=== PATIENT | male | born 1945 | race Caucasian/White ===

== ENCOUNTER → 2022-02-12 | Outpatient (CLI) | payer OTHER, SELFPAY ==
--- NOTE | 2022-02-12 15:50 | RAD_ITS ---
INDICATION: SPONDYLOSIS LUMBAR REGION EXAMINATION/TECHNIQUE: X-RAY - AP, lateral and spot views of lumbar spine COMPARISON: None. FINDINGS: VERTEBRAE: Mild levoscoliotic curvature of lumbar spine with apex of curvature at level of L2-3. There is grade 1 anterolisthesis of L5 in relation to L4 and S1. No acute fracture identified. Mild chronic appearing loss of height L4 vertebral body. Multilevel endplate osteophytes. Multilevel degenerative facet arthropathy. DISCS: Mild degenerative disc space narrowing at L1 and L2. Moderate disc space narrowing at L5-S1. INCLUDED ABDOMEN: Included bowel gas pattern is non-obstructive. RAD/Lumbar Spine 2 or 3 Views IMPRESSION: Mild lumbar scoliosis with multilevel spondylosis as described above. There is grade 1 spondylolisthesis of L5 in relation to L4 and S1. Electronically Signed: Gabriel Sebastian MD at 4:33 EDT ,
== END | disposition home or self-care (01) ==
LOC: RAD 15:46
PROVIDERS: PCP Family Medicine; Referring Provider Anesthesiology Pain Medicine; Visit Provider Anesthesiology Pain Medicine
DX: M47.816 Spondylosis without myelopathy or radiculopathy, lumbar region (principal); M47.896 Other spondylosis, lumbar region
CPT/HCPCS: 72100

== ENCOUNTER → 2022-04-19 | Outpatient (CLI) | payer OTHER, SELFPAY ==
--- NOTE | 2022-04-19 15:45 | RAD_ITS ---
STUDY: X-RAY - PELVIS AND LEFT HIP REASON FOR EXAM: Male, 76 years old. L HIP PAIN TECHNIQUE: 3 views of the pelvis and hip. COMPARISON: None. FINDINGS: There is a non-specific bowel gas pattern. Normal visualized soft tissue structures. Normal bilateral iliac wings, sacroiliac joints and visualized sacrum. Normal bilateral superior and inferior pubic rami. Normal pubic symphysis. Normal bilateral ischial tuberosities. Normal visualized femoral head. Small acetabular spur. Narrowed hip joint. RAD/HIP, UNI W/ Pelvis 2-3 Views IMPRESSION: Degenerative osteoarthritic change. No acute fracture or other significant bony pathology Electronically Signed: Patrick Carmichael MD at 19:59 EST ,
== END | disposition home or self-care (01) ==
LOC: RAD 15:41
PROVIDERS: PCP Family Medicine; Referring Provider Anesthesiology Pain Medicine; Visit Provider Anesthesiology Pain Medicine
DX: M25.552 Pain in left hip (principal)
CPT/HCPCS: 73502

== ENCOUNTER → 2022-06-06 | Outpatient (CLI) | payer OTHER, SELFPAY ==
--- NOTE | 2022-06-06 15:20 | MRI_ITS ---
PROCEDURE: LUMBAR SPINE MRI WITHOUT CONTRAST COMPARISONS: None CLINICAL INDICATION: RADICULOPATHY, left hip pain, low back pain. History of prostate cancer with radiation TECHNIQUE: Noncontrast lumbosacral spine MRI study was performed multiple sequences in sagittal and axial planes. FINDINGS: Mild levoscoliosis centered on L2. Slight degenerative L1-L2 and L4-L5 retrolisthesis. Bilateral L5 pars defects with grade 1/2 L5-S1 anterolisthesis. Normal vertebral marrow signal. Normal partially visualized sacroiliac joints. The conus medullaris terminates at L1. No abnormal signal within the visualized cord. L1-L2: Disc height loss and type II endplate change. Mild right neural foraminal stenosis. No spinal canal stenosis. L2-L3: Disc bulge and type II endplate changes with Schmorl''s nodes. Mild right neural foraminal stenosis. Crowding of the traversing right L3 nerve root in the lateral recess. L3-L4: Disc bulge eccentric to the right and Schmorl''s nodes. Impingement upon the traversing right L4 nerve root in the right lateral recess. Mild right neural foraminal stenosis. L4-L5: Disc bulge. Mild left neural foraminal stenosis. L5-S1: Disc uncovering and bulge. Severe bilateral neural foraminal stenosis. Mild paraspinous muscle fatty infiltration. MRI/Spine Lumbar (Routine) IMPRESSION: 1. Severe bilateral L5-S1 neural foraminal stenosis. 2. Right-sided lateral recess and neural foraminal stenosis at most levels with impingement upon the traversing right L4 nerve root in the right lateral recess. Electronically Signed: Nickolas Jason MD at 20:47 EST ,
== END | disposition home or self-care (01) ==
PROVIDERS: PCP Family Medicine; Referring Provider Anesthesiology Pain Medicine; Visit Provider Anesthesiology Pain Medicine
DX: M54.16 Radiculopathy, lumbar region (principal); M48.061 Spinal stenosis, lumbar region without neurogenic claudication
CPT/HCPCS: 72148

== ENCOUNTER → 2022-08-21 | Outpatient (CLI) | payer OTHER, SELFPAY ==
--- NOTE | 2022-08-21 14:49 | CT_ITS ---
CT LEFT LOWER EXTREMITY WITH 3-D IMAGING CLINICAL INDICATION: Template for left total hip arthroplasty. COMPARISON: TECHNIQUE: Coronal, sagittal and axial images of both hips and both knees were obtained without contrast. Bone and soft tissue algorithm images were provided. RADIATION DOSAGE (If Supplied By Facility): CTDIvol = ( 13.99 ) mGy, DLP = ( 700.01 ) mGycm FINDINGS: Bones: Osteopenia with moderate arthrosis of both hips, left greater than right. Lower lumbosacral spondylosis. Mild arthrosis of both medial femorotibial compartments and mild arthrosis of both lateral femorotibial compartment Soft Tissues: The deep soft tissue structures are unremarkable. The superficial soft tissues are unremarkable without evidence of edema, hematoma, or foreign body. CT/Extremity Lower without Contra IMPRESSION: Osteopenia with osteoarthritic changes of the lumbosacral spine, hips and knees as described. No acute abnormality.. Electronically Signed: Nicola Valentin, at 9:19 EDT ,
== END | disposition home or self-care (01) ==
PROVIDERS: PCP Family Medicine; Referring Provider Orthopaedic Surgery; Visit Provider Orthopaedic Surgery
DX: M16.12 Unilateral primary osteoarthritis, left hip (principal)
CPT/HCPCS: 73700

== ENCOUNTER 2022-09-04 08:05 | Inpatient (IN) | payer MEDICARE, OTHER, SELFPAY ==
--- NOTE | 2022-08-07 11:03 | CASEMGMT ---
Received tc from Tameka at 's office who states pt will have total hip on 09/04 and the plan is for [facility]. Updated SW.
[2022-08-22 13:41] LABS: Absolute Lymphocyte Count 1.19 X10^3/uL (0.83-4.51); Absolute Neutrophil Count 4.2 X10^3/uL (2.0-7.7); Basophil# 0.04 X10^3/uL; Basophil% 0.6 % (0-1); Eosinophil# 0.32 X10^3/uL; Eosinophils% 5.2 % (0-5); Hematocrit 41.8 % (40-54); Hemoglobin 13.9 g/dL (13.0-16.5); Lymphocyte # 1.19 X10^3/ul (0.83-4.51); Lymphocyte % 19.2 % (19-41); Mean Corp Hgb Conc 33.3 g/dL (32-36); Mean Corpuscular Hgb 32.5 pg (27.0-32.0); Mean Corpuscular Volume 97.7 fL (80-94); Mean Platelet Vol. 9.2 fl (6.2-12.0); Monocyte% 6.5 % (0-10); NRBC Flagged by Analyzer 0 % (0-5); Neutrophil # 4.22 X10^3/uL (2.7-7.7); Neutrophil % 68.2 % (47-70); Platelet Count 160 K/mm3 (150-450); RBC Distribution Width CV 12.9 % (11.6-14.6); RBC Distribution Width SD 45.7 fl (35.1-43.9); Red Blood Count 4.28 M/mm3 (4.6-6.2); White Blood Count 6.2 K/mm3 (4.4-11.0)
[2022-08-22 13:51] LABS: International Normalized Ratio 1.8; Partial Thromboplast Time 41.4 Seconds (24.1-36.2)
[2022-08-22 13:58] LABS: Hemoglobin A1c 5.1 % (3.8-5.6)
[2022-08-22 14:20] LABS: Anion Gap 7 (5-15); BUN 18 mg/dL (7-18); BUN/Creat Ratio 11.8 RATIO (10-20); Calcium,Total 9.1 mg/dL (8.5-10.1); Chloride 112 mmol/L (98-107); Creatinine, Serum 1.52 mg/dL (0.70-1.30); EST Glomerular Filtration Rate 48 mL/min (>60); Est Glom Filt Rate - Afr Amer 57 mL/min (>60); Glucose 123 mg/dL (74-106); Potassium 3.8 mmol/L (3.5-5.1); Sodium Level 141 mmol/L (136-145)
[2022-08-22 14:26] LABS: Magnesium 2.2 mg/dL (1.6-2.6)
[2022-08-24 15:25] LABS: Fructosamine 217 umol/L (0-285)
[2022-09-04] VITALS (14 sets, daily range): BP systolic 114–145; BP diastolic 54–73; PULSE 58–80; RESP 13–18; TEMP 36.3–37.2; O2SAT 95–100; BMI 29.7; BMI 29.6
[2022-09-04] MEDS: Lactated Ringers 1,000 ML 999 ML IV (08:40)
[2022-09-04] MEDS: Acetaminophen 500 MG Tablet 1000 MG PO ×3 (09:08→22:09)
[2022-09-04] MEDS: Magnesium 1 GM over 15 mins IV (09:08)
[2022-09-04] MEDS: Gabapentin 600 MG Tablet PO (09:09)
[2022-09-04] MEDS: Celecoxib 200 MG Capsule 400 MG PO (09:09)
[2022-09-04] MEDS: Scopolamine 1mg/72hr Patch 1 PATCH TD (09:11)
[2022-09-04 09:40] LABS: Bedside Glucose 151 mg/dL (74-106)
[2022-09-04 09:45] LABS: INR Fingerstick 1.1; Prothrombin Time Fingerstick 12.2 SEC (11.7-14.9)
[2022-09-04] MEDS: Lactated Ringers 1,000 ML 100 ML IV (10:06)
--- NOTE | 2022-09-04 10:22 | PCM.HP.BLA ---
History and Physical Date of Admission: 09/04/22 [facility] [address] [place] [address] OFFICE VISIT Date of Service:? 07/13/22 MR#: [id number] Acct: [id number] Name:SEE BREWER Rep #: [id number] : 1945 ? ? Provider: Dr. Tony Magaña, DO Age/Sex:? 77/M ? ? Location: [facility] [place] Status: Signed Intake Vital Signs ? 07/13/2307:43 Height 5 ft 10 in Weight: 208 lb BMI 29.8 Intake Visit Reasons:?LEFT HIP Accompanied by: Is patient in pain?: Yes Pain scale (1-10): 5 Allergies acetaminophen [From Percocet] Allergy (Verified 07/11/22 13:47) Otherhydrocodone [From Vicodin] Allergy (Verified 07/11/22 13:47) Othermorphine Allergy (Verified 07/11/22 13:47) Otheroxycodone [From Percocet] Allergy (Verified 07/11/22 13:47) Other Medications amlodipine 5 mg tablet 5 mg PO DAILY 07/11/22 [History Confirmed 07/13/22] ascorbate calcium (vitamin C) 500 mg tablet 500 mg PO DAILY 07/11/22 [History Confirmed 07/13/22] cholecalciferol (vitamin D3) 10 mcg (400 unit) capsule 10 mcg PO DAILY 07/11/22 [History Confirmed 07/13/22] doxazosin 1 mg tablet (Cardura) 1 mg PO DAILY 07/11/22 [History Confirmed 07/13/22] omeprazole 10 mg capsule,delayed release 10 mg PO DAILY 07/11/22 [History Confirmed 07/13/22] tumeric 100 mg-juan 150 mg-olive 50 mg-oreg 150 mg-caprylate capsule cap PO 07/11/22 [History Confirmed 07/13/22] venlafaxine besylate 112.5 mg tablet,extended release 24 hr 225 mg PO DAILY 07/11/22 [History Confirmed 07/13/22] omega 3-mdc-cnu-fish oil 300 mg-1,000 mg capsule (Fish Oil) 1 cap PO DAILY 02/24/23 [History Confirmed 07/13/22] rivaroxaban 20 mg tablet (Xarelto) 20 mg PO 07/13/22 [History Confirmed 07/13/22] PFSH Medical History?(Updated 07/13/22 @ 09:02 by Sharri Vazquez) History of chemotherapy Hx of blood clots Hx of radiation therapy Surgical History?(Updated 07/13/22 @ 08:40 by Sharri Vazquez) Hx of prostatectomy HPI LEFT HIP Details: Parts of this documentation were recorded by a scribe, this documentation accurately reflects the service provided and the decisions made by me, Dr. Tony Magaña, DO 07/13/22 0802. SEE PARIS is a 77 year old M here today for? left hip pain. Referred by Dr. Melo. He states that he has been having this pain for about 1 year. Denies any injury. He states that his pain is in the left groin and left posterior hip. He states it feels like a grinding in his hip socket. He states that he has the pain with WB. Denies any pain in the hip will sitting/laying. Denies numbness, tingling or other associated symptoms. He does have some low back pain as well but this is not the worst of his pain. Denies any hx of surgery of the hip or the back. He states that he did have a lumbar injection with Dr. Bhandari which did not help at all with his pain. He did have a left hip injection in 04/2022 which was helpful for about 3 weeks. He has been on Xarelto for about 1 year. He had his prostate removed and then had radiation. Then he had 2 spots seen in the pelvis flesh and had additional radiation and chemo therapy about 8 months ago. He sees the oncologist johanne in 11/2022 for re-evalaution. Ortho Exam General General: Yes no acute distress Neurologic: Yes alert and Yes oriented x3 Psychologic: Yes reasonable and appropriate Right Hip Homans Sign: No Left Hip Skin/Wound: No Ecchymosis, No soft tissue swelling and No Erythema Hip: Absent eccymosis, soft tissue swelling, erythema or tender to palpate - HIP: intact sensation to light touch no motor deficits on exam 10 internal rotation with lateral hip pain 40 external rotation with groin pain 5/5 hip flexion strength without pain Head: Normocephalic Atraumatic Chest: symmetrical rise, non-labored breathing, no audible wheeze Abdomen: no guarding, non-rigid Supplemental Info 06/06/2022 MRI lumbar spine:1. Severe bilateral L5-S1 neuroforaminal stenosis.? 2 right-sided lateral recess stenosis with impingement on traversing L4 nerve root in the right lateral recess 06/06/2022 x-ray left hip: Moderate to advanced left hip DJD joint space narrowing subchondral cysts acetabulum 02/12/2022 x-ray lumbar spine:Mild lumbar scoliosis with multilevel spondylosis as described above.? There is grade 1 spondylolisthesis of L5 in relation to L4 and S1.? Coding Level of Care Code Off vis,est,level 3 Diagnoses Osteoarthritis of left hip? M16.12 Lumbar degenerative disc disease? M51.36 SI joint arthritis? M47.818 Assessment and Plan Assessment and Plan (1) Osteoarthritis of left hip: ?Status:?Acute (2) Lumbar degenerative disc disease: ?Status:?Acute (3) SI joint arthritis: ?Status:?Acute Plan reviewed X-rays of patient's lumbar spine and left hip. Personally reviewed x-rays. There is no obvious fracture, dislocation, or lucency noted. Patient educated that he does have DDD /spondylosis, b/l SI joint arthrosis and spondylolisthesis of the lumbar spine but this is likely not the cause of his groin pain. Educated that taking Xarelto with the fish oil and turmeric will increased the blood thinning. Patient educated that he does have moderate to advanced OA of the left hip and arthritis . Educated that the groin pain with hip rotation is from the arthritis of the hip. Educated that if he does have a hip replacement this will not help the back pain. Treatment options are do nothing or steroid injection or PT which he has had, injections which he has had temperoraly relief or SHANTI. He has already tried and failed injection and PT therefore he wishes to discuss SHANTI.?Risks, benefits and alternatives of surgery reviewed including but not limited to bleeding, infection, nerve, foot drop, artery and/or tissue damage, fracture, VTE, leg length discrepancy, dislocation, need for hip precautions, continued pain and expected post-operative course. The recovery is on average 2-3 months before better than pre op and continued improvement up to 2 yrears.?Patient educated that he will need to stop the Xarelto 3days prior to surgery and we will need clearance for this prior to surgery. we will also stop fish oil 3 weeks pre op.? Patient has a concern about pain medication as they have made him dizzy and altered mental status .? for this reason along with his age and medical comorbidities he should be an admission procedure with request for transitional care prior to returning home as his is also of advanced age and does not feel that she can care for him, he would need to complete therapy after surgery. Recommended he is admitted after the surgery and could potentially benefit from skilled care after surgery. We will find out when the last hip injection was exactly. He will need to wait 3 months after the injection to have surgery.? We will need medical clearance. Follow up in 2 weeks postop or sooner if pain, swelling, numbness or associated symptoms, or concerns develop.? All questions answered. Patient in agreement of plan. 07/13/22 0928 <Electronically signed by Tony Magaña DO> Date Tony Magaña DO Cosigner Signature: Date (if applicable) ? I have examined the patient and the H&P has been reviewed. There are no clinical changes since date of exam.
--- NOTE | 2022-09-04 10:45 | HIP_PTH ---
PATIENT: SEE PARIS LOC: MS3 U#:[id number] AGE/SX: 77/M ROOM: [facility] [place] RE09/04/[address]: Dr. Tony Magaña DO : 1945 BED: 1 DIS: 09/06/2022 SPEC #: [id number] RECD: 09/04/22 14:47 STATUS: [place] REGian #: [id number] DENISE: 09/04/22 10:[address]: Tony Magaña DEPT: SURGICAL PATHOLOGY RECD BY: Fatmata Flores ENTERED: 09/05/22 08:13 SP TYPE: TOTAL HIP OTHR DR: DO Dr. Renato Berkowitz MD Tissues: Hip, NOS Procedures: Decalcification bone/plaque Surgery Specimen Level IV HEADER OPERATION: ERAS, total hip replacement robotic arm assist PRE-OP DIAGNOSIS: Osteoarthritis of left hip TISSUE SUBMITTED: Bone and soft tissue left hip MICROSCOPIC DIAGNOSIS Left hip bone and soft tissue, total hip replacement/resection: Femoral head with degenerative osteoarthritic changes. ALEAH:quirino 09/07/2022 MICROSCOPIC DESCRIPTION Slides are reviewed. GROSS DESCRIPTION Received is one container labeled with the patient's name and designated bone and tissue hip, left. The specimen consists of a godfrey femoral head measuring 6.0 x 5.0 x 5.0 cm. The articular surface displays prominent osteophyte formation, eburnation and bone erosion. Also present in the specimen container are multiple irregular fragments of bone reamings and pink-yellow soft tissue measuring in aggregate 11.0 x 7.0 x 1.5 cm. Field Nurse Case Manager sections are submitted in two cassettes as follows: 1 - soft tissue and reamings, 2 - femoral head after decalcification. / AM:quirino 09/05/2022 TC:5 CPT: 58880, 75468
[2022-09-04] MEDS: Cefazolin 2 GM in 0.9% Normal Saline 100 ML IV (10:50)
[2022-09-04] MEDS: dexAMETHasone 10 MG/ML Vial IV (11:00)
[2022-09-04] MEDS: Lactated Ringers 1,000 ML 125 ML IV ×2 (13:16→17:37)
--- NOTE | 2022-09-04 13:23 | OP.PCM_ITS ---
Operative Report Date of Procedure: 09/04/22 Preoperative diagnosis: Left hip DJD Postoperative diagnosis: Same Procedure: CT-guided Makoplasty assisted left total hip arthroplasty Implants: [place] Accolade II stem size 5, 127 degree neck angle +5 neck length 54 mm Trident II acetabular shell with 40 mm cancellous screw 36 mm ceramic head, 10 degree Trident X3 polyethylene insert. Anesthesia: Spinal EBL: 175 cc Complications: None Condition: Stable to PACU Indication for procedure: This is a 77-year-old male who has had long-standing arthrosis of the hip who has failed conservative treatment and wished to undergo total hip arthroplasty. We did discuss operative versus nonoperative intervention including risks of bleeding, infection , nerve artery tissue damage, need for further surgery, fracture, leg length discrepancy dislocation blood clot and need for postoperative physical therapy and postoperative expectations. An informed consent was signed. Procedure: Patient was met in the preoperative holding area once again the operative extremity was identified by both patient and physician and was marked. Patient was met by anesthesia . Anesthesia was started. patient was then positioned in the lateral decubitus position on a well-padded pegboard with an axillary roll. All bony prominences were checked and padded. The patient was prepped and draped in the usual sterile fashion. A timeout was called to ensure the proper patient procedure and extremity were being contemplated. Anatomic landmarks were palpated and marked for a standard posterior lateral approach. Prior to this the ASIS was palpated and 3 fingerbreadths proximal to this 3 pins were placed at a 45 degree angle into the iliac crest with good purchase, stab incisions were made with a 15 blade into the skin prior to placement. The Makoplasty array was then secured. A 10 blade scalpel was used to make a posterior incision through the skin and subcutaneous tissue. retractors were used and electrocautery was used to maintain meticulous hemostasis and dissect full-thickness flaps until the gluteal fascia was reached. The gluteal fascia was incised in line with the gluteal fibers. The bursal tissue was then freed from the underside and a Charnley retractor was placed. The femoral trochanteric checkpoint was placed and leg length was assessed using the trochanteric checkpoint and an EKG lead that was placed on the knee prior to prepping the leg .the fat pad was then elevated off of the external rotators with electrocautery and the external rotators were dissected off of the greater trochanter including the piriformis and were tagged with #1 Ethibond for later repair. The joint capsule opened with posterior trapdoor technique. The hip was surgically dislocated. The measurement on the preoperative CT from the top of the lesser trochanter to the femoral neck cut was marked Hohmann was placed around the lesser trochanter. A neck cutting guide was used to denys the neck with a Bovie and an oscillating saw was used complete the femoral neck cut. The femoral head was then removed and sized. We then turned our attention to the acetabulum. A Bovie was used to make a perforation in the anterior joint capsule and a Ortega retractor was placed this was repeated in the 6 o'clock position and a wide remy was placed there. With a long handled knife the labral and pulvinar tissue were removed. We then registered the acetabulum with the pointing array and confirmed our landmarks. Once the socket was thoroughly prepared and labral tissue and pulvinar was removed we single reamed with the robotic arm. We then used the robotic arm to position the acetabular implant and impacted it into place under robotic guidance. We then proceeded to place a posterior superior screw by drilling first measuring and inserting the screw. We then inserted a trial liner. And turned our attention back to the femur at this point a femoral elevator was used. As well as a pointed wide Hohmann around the lesser trochanter and a Hohmann to help retract the gluteus medius. A box chisel was used to remove excess lateral neck followed by a canal finder and a lateralizing reamer. This was followed by sequential broaches. Attention was made of the version within the canal based on preoperative templating. Once the final broach was seated we then trialed reduced the hip it was determined that a 127 degree neck angle with a 7.5 neck length was the appropriate size. We then checked stability with shuck testing as well as flexion and internal rotation. then proceeded with hip extension and checked leg lengths at the knees and heels as well as with the trochanteric checkpoint and knee EKG lead. At this point trials were removed. A liner was inserted to the cup. The femoral stem was inserted. We re-trialed and then proceeded to impact the femoral head onto the Ad taper. We then surgically reduce the hip check stability again and leg lengths and were satisfied. Betadine rinse was allowed to sit for 5 minutes while everyone changed their gloves. Thorough irrigation was performed. Followed by closure of the external rotators with #2 FiberWire followed by closure of gluteal fascia with #1 Ethibond. 0 Vicryl fat stitches and 2-0 Vicryl subcutaneous stitches and adrian in the skin. Adrian were placed in the skin pin sites over the iliac crest and dressed with a Mepilex dressing. The main incision was dressed with a Mepilex ag dressing and an abduction pillow was placed. Patient tolerated the procedure well there was no intraoperative complications all counts were correct and the patient was brought back to the PACU in stable condition
--- NOTE | 2022-09-04 13:34 | RAD_ITS ---
STUDY: X-RAY - PELVIS AND LEFT HIP REASON FOR EXAM: Male, 77 years old. Postoperative evaluation after left total hip arthroplasty. TECHNIQUE: 3 views of the pelvis and hip. COMPARISON: April 2022. FINDINGS: Left total hip arthroplasty in anatomic alignment with expected post-operative findings and no complications noted. RAD/Hip Min 2 Views (Portable) IMPRESSION: Placement of total hip arthroplasty in anatomic alignment without complications. Electronically Signed: Nicola Valentin, at 13:57 EDT ,
[2022-09-04] MEDS: Cefazolin 1 GM/50 ML BAG IV ×2 (14:07→22:08)
[2022-09-04] MEDS: Senna/Docusate Sodium 1 Tablet 2 TABLET PO (22:09)
--- NOTE | 2022-09-04 23:39 | PN.HOSP_ITS ---
Reason for Visit Reason for Visit: Diagnoses Encounter for other preprocedural examination (09/04/22) Subjective Subjective Unfortunately upon attempted evaluation patient sleeping, discussed with nursing staff and will defer discussions with patient as the note has been clinically stable with no acute complaints or concerns. Objective Data Objective Data Examination deferred as patient sleeping, no acute concerns per nursing staff or patient complaints that acutely need evaluated. Vital Signs: Vital Signs Temp Pulse Resp BP Pulse Ox O2 Del Method O2 Flow Rate 98.5 F 76 16 139/73 H 95 Room Air 4 09/04/22 22:06 09/04/22 22:06 09/04/22 22:06 09/04/22 22:06 09/04/22 22:06 09/04/22 22:06 09/04/22 14:15 Oxygen Flow Rate (L/min) 4 Oxygen Delivery Method Room Air Weight: 206 lb 12.697 oz Body Mass Index (BMI) 29.6 Intake & Output: Intake and Output for Last 24 Hours 09/02/22 09/03/22 09/04/22 23:59 23:59 23:59 Intake Total 3432 / 3432 Output Total 450 / 450 Balance 2982 / 2982 Lab / Micro Data Result Diagrams: 08/22/22 13:18 08/22/22 13:18 Labs: Laboratory Results - last 24 hr 09/04/22 08:39: POC Glucose 151 H 09/04/22 09:39: POC PT 12.2, INR 1.1 Micro: Microbiology 08/22/22 13:18 Nasal Secretion Nasal Screen MRSA/MSSA - Final Radiography Diagnostic Testing: Radiology Impression Hip X-Ray 09/04/22 13:34 IMPRESSION: Placement of total hip arthroplasty in anatomic alignment without complications. Electronically Signed: Nicola Valentin, at 13:57 EDT , Assessment & Plan Assessment/Plan (1) Osteoarthritis of hip: PLAN: Plan The patient is a 77 y/o M w/ PMHx: GERD, Hx VTE, Hx Prostate CA s/p prostatectomy/radiation/chemotherapy, OA, GERD who presents to the [facility] on 09/04/22 with history of severe L hip DJD admitted per Dr. Magaña for CT-guided Makoplasty assisted left total hip arthroplasty. #1. Severe Osteoarthritis, left hip: Failed conservative therapies and treatments, admitted per Dr. Magaña for planned 09/04/22 CT-guided Makoplasty assisted left total hip arthroplasty, post-operative pain management, bowel regimen, DVT Prophylaxis, PT/OT/CM per Orthopedic surgery discretion. #2. History of VTE: Patient with history DVT, PE, resume patient home Xarelto regimen once cleared by surgery given recent OR. #3. Hypertension: Continue home regimen including doxazosin, amlodipine, PRN hydralazine. #4. History of prostate cancer w/ BPH: Status post prostatectomy/radiation/chemotherapy all documented in the chart, unclear if in remission, will continue doxazosin and megestrol home regimen, encourage continued follow-up with oncology/urology as previously arranged. #5. GERD: Continue patient home omeprazole regimen. #6. DVT prophylaxis: As noted resume patient home Xarelto regimen once cleared by orthopedic surgery given recent OR. Unfortunately evaluation delayed until near midnight, patient sleeping, comfortable appearing thus discussions and examination deferred, non-billable note.
[2022-09-05] MEDS: Lactated Ringers 1,000 ML 15 ML IV (01:37)
[2022-09-05 02:12] VITALS: BP 135/65; PULSE 68; RESP 16; TEMP 37; O2SAT 98
[2022-09-05] MEDS: oxyCODONE 5 MG Tablet PO ×4 (02:17→22:42)
[2022-09-05] MEDS: Cefazolin 1 GM/50 ML BAG IV (05:50)
[2022-09-05] MEDS: Acetaminophen 500 MG Tablet 1000 MG PO ×3 (05:50→22:42)
[2022-09-05 06:40] LABS: Hemoglobin 11.7 g/dL (13.0-16.5); Mean Corp Hgb Conc 33.4 g/dL (32-36); Mean Corpuscular Hgb 32.4 pg (27.0-32.0); Mean Platelet Vol. 9.2 fl (6.2-12.0); Platelet Count 132 K/mm3 (150-450); RBC Distribution Width CV 12.7 % (11.6-14.6); RBC Distribution Width SD 45.1 fl (35.1-43.9); Red Blood Count 3.61 M/mm3 (4.6-6.2); White Blood Count 11.8 K/mm3 (4.4-11.0)
--- NOTE | 2022-09-05 07:50 | PN.HOSP_ITS ---
Reason for Visit Reason for Visit: Diagnoses Osteoarthritis of hip, unspecified (09/04/22) Encounter for other preprocedural examination (09/04/22) Follow-up perioperative left hip total arthroplasty. Subjective Subjective Patient has mild indigestion. Last BM, 1 day before yesterday. Voiding urine spontaneously. No fever. Objective Data Objective Data Vital Signs: Vital Signs Temp Pulse Resp BP Pulse Ox O2 Del Method O2 Flow Rate 98.6 F 68 16 135/65 H 98 Room Air 4 09/05/22 02:12 09/05/22 02:12 09/05/22 02:12 09/05/22 02:12 09/05/22 02:12 09/05/22 02:12 09/04/22 14:15 Oxygen Flow Rate (L/min) 4 Oxygen Delivery Method Room Air Weight: 206 lb 12.697 oz Body Mass Index (BMI) 29.6 Intake & Output: Intake and Output for Last 24 Hours 09/03/22 09/04/22 09/05/22 23:59 23:59 23:59 Intake Total 3432 / 3432 1050 / 1050 Output Total 450 / 750 1000 / 1000 Balance 2982 / 2682 50 / 50 Lab / Micro Data Result Diagrams: 09/05/22 06:20 09/05/22 06:20 Labs: Laboratory Results - last 24 hr 09/04/22 08:39: POC Glucose 151 H 09/04/22 09:39: POC PT 12.2, INR 1.1 09/05/22 06:20: WBC 11.8 H, RBC 3.61 L, Hgb 11.7 L, Hct 35.0 L, MCV 97.0 H, MCH 32.4 H, MCHC 33.4, RDW Std Deviation 45.1 H, RDW Coeff of Angelica 12.7, Plt Count 132 L, MPV 9.2 Micro: Microbiology 08/22/22 13:18 Nasal Secretion Nasal Screen MRSA/MSSA - Final Radiography Diagnostic Testing: Radiology Impression Hip X-Ray 09/04/22 13:34 IMPRESSION: Placement of total hip arthroplasty in anatomic alignment without complications. Electronically Signed: Nicola Valentin, at 13:57 EDT , Physical Exam Narrative Seen and examined. Patient denies history of chronic heart disease or lung disease. No previous stroke. Does not have chest pain or shortness of breath. Mild pain over left hip operative region. Patient had PT and OT in the morning. Physical exam General: Alert, Oriented x3, Cooperative HEENT: Atraumatic, PERRLA, EOMI, Normocephalic Oral: Oral mucosa moist. No Gingival or Mucosal Lesions/ Ulcerations Neck: Supple, No JVD, Negative Carotid Bruits Lungs: Air entry diminished in bilateral lung bases. No crepitation/rhonchi Cardiovascular: Regular rate, Regular Rhythm, Normal S1, Normal S2, No murmurs Abdomen: Bowel Sounds Present, Soft, Non Tender, Non-Distended : Voiding urine spontaneously. No dysuria. No renal angle tenderness. No suprapubic tenderness. Extremities: No edema, Capillary Refill Less than 3 Seconds Skin: Left hip surgical dressing is dry. No hematoma or bruise or bleeding. Mild deep tenderness. Musculoskeletal: No Tenderness to Palpation of Joints or Extremities Neurological: Cranial nerves II-XII grossly intact, DTR 2+/4 and Symmetrical, Neuro grossly intact Psych/Mental Status: Normal Affect, Appropriate. Assessment & Plan Assessment/Plan (1) Osteoarthritis of hip: PLAN: Plan The patient is a 77 y/o M w/ PMHx: GERD, Hx VTE, Hx Prostate CA s/p prostatec anthony/radiation/chemotherapy, OA, GERD who presents to the [facility] on 09/04/22 with history of severe L hip DJD admitted per Dr. Magaña for CT-guided Makoplasty assisted left total hip arthroplasty. #1. Perioperative management of severe Osteoarthritis, left hip status post CT- guided MAKOplasty assisted left total hip arthroplasty: Patient was admitted for perioperative care after elective surgery. Pain control. Patient spontaneously voided urine. Had not bowel movement for 1 day. On stool softener. MiraLAX added. Mild indigestion on Mylanta. PT OT evaluation and management. Xarelto for DVT prophylaxis. Patient had dizziness/nausea or other side effects of opioids medication during previous surgical procedure. #2. History of VTE: Patient with history DVT, PE, Xarelto resumed as mentioned above. #3. Hypertension: BP is in normal range 122/69. Continue home regimen including doxazosin, amlodipine, PRN hydralazine. #4. History of prostate cancer with BPH: Status post prostat ectomy/radiation/chemotherapy. Continue doxazosin and megestrol. Patient voiding urine spontaneously. No acute complaint of dysuria or new lower urinary tract symptoms. Follow-up with urology and oncology as scheduled. #5. GERD: Continue patient home omeprazole regimen. #6. DVT prophylaxis: As noted resume patient home Xarelto regimen once cleared by orthopedic surgery given recent OR. Patient prefers going to SNF. The patient is medically stable for discharge to home. Charges/Coding Visit Charges Inpatient E&M: 11878 Subs Hosp L2
[2022-09-05 07:54] LABS: Anion Gap 4 (5-15); BUN 17 mg/dL (7-18); BUN/Creat Ratio 14.4 RATIO (10-20); Calcium,Total 8.6 mg/dL (8.5-10.1); Chloride 112 mmol/L (98-107); Creatinine, Serum 1.18 mg/dL (0.70-1.30); EST Glomerular Filtration Rate 64 mL/min (>60); Est Glom Filt Rate - Afr Amer 77 mL/min (>60); Estimated Creatinine Clearance 54.13 ml/min; Glucose 159 mg/dL (74-106); Potassium 4.3 mmol/L (3.5-5.1); Sodium Level 137 mmol/L (136-145)
[2022-09-05 08:15] VITALS: BP 122/69; PULSE 64; RESP 16; TEMP 36.6; O2SAT 94
[2022-09-05] MEDS: Pantoprazole Sodium 20 MG Tablet PO (08:24)
[2022-09-05] MEDS: Doxazosin 1 MG Tablet PO (08:24)
[2022-09-05] MEDS: amLODIPine 5 MG Tablet PO (08:24)
[2022-09-05] MEDS: Senna/Docusate Sodium 1 Tablet 2 TABLET PO ×2 (08:25→22:42)
[2022-09-05 09:23] VITALS: O2SAT 94
--- NOTE | 2022-09-05 09:30 | CASEMGMT ---
YESSENIA ZABALA Assessment: Face to Face with pt for initial transition planning/care coordination assessment. YESSENIA ZABALA introduced self and role at [facility], pt voices understanding and consents to assessment. Pt is A/O x4 and answers all questions appropriately at this time. Pt sitting up in chair in no distress. Care providers, pharmacy, and demographics verified/updated. Admitting Dx: Lt total hip with YANNI PCP:Shirin Specialists:jose manuel Magaña Pharmacy: [facility] Insurance: [facility], [facility] Prescription Benefit: yes LNOK: Monse Colon, Living Arrangements: Pt lives with in a single story home with 3 steps to enter with a rail. Pt reports he was I in ADL's prior to surgery. Pt denies any concerns at home. Transportation: Pt drives self and denies concerns with transportation. Pt is able to transport him post surgery. DME/HHC/SNF: Pt has a high toilet seat, pewter finisher, walk in shower and a FWW. Pt denies hx of HHC or SNF stays. Pt states he would like to go to [facility] TCU. He states that his is unable to assist with his care. discussed the same with YESSENIA ZABALA. Updated SW. Pt states no further concerns/needs. CM to follow. Advised pt to ask CM if any further question/concerns/needs arise, voices understanding. Pt Goal: [facility] TCU Plan: [facility]
--- NOTE | 2022-09-05 10:43 | CASEMGMT ---
Social Work? SW in to meet with pt following update from /CHAYITO that pt will need placement at nursing facility. SW introduced self and role at the hospital. Pt agreeable to discussing discharge planning. Pt declined a list of SNF providers including quality and resource use data consistent with the patient?s preferred geographic region, medical needs, and insurance network from the [employer] Guide. Pt stated [facility] is preference. COLTON sent referral to Deja at TCU. Deja able to accept for 09/06/22. SW notified pt of acceptance and bed opening tomorrow. Pt voiced understanding, stated will update later when arrives. MD Quintana and MD Hilario updated on d/c plan. PLAN: SNF? [facility]?
[2022-09-05] MEDS: Rivaroxaban 20 MG Tablet PO (11:20)
[2022-09-05] MEDS: Mag Hydrox/Al Hydrox/Simeth 30 ML UDC PO (12:06)
--- NOTE | 2022-09-05 12:24 | DCINST_ITS ---
Discharge Instructions Diet Discharge Diet: No restrictions Dressing / Incision Call your doctor if you observe: Shortness of breath and Chest pain Additional Dressing/Incision Instructions:: Do not shower 72hrs. Begin daily showering warm water antibacterial soap postop day #3( 72hrs Post-operatively) and then daily. Leave the dressing on for 72 hours postoperatively then may remove prior to first shower and change dressing daily after this until no drainage for 2 consecutive days then may leave open to air. Follow hip precautions that were reviewed in hospital. Wear compression stockings, may remove at night. Start physical therapy as directed in hospital. Follow prescriptions instructions do not take any other pain medication or differ dosing without consulting your physician. Do not take oral NSAIDs until blood thinner has been completed , then may begin the day after completion if needed . Call Dr. Magaña's office with any concerns. Follow Up Care Please Follow Up With: Tony Magaña DO When: 2 weeks Test Results: Test results from this visit will be discussed in further detail at your follow- up appointment, if applicable. Discharge Plan Admission Admit Date/Time: 09/04/22 08:05 Primary Reason for Your Visit: Left total hip arthroplasty Attending Provider: Tony Magaña Primary Care Provider: Jermaine Carpio Consulting Providers: Renato Quintana Discharge Orders/Prescriptions Prescriptions: New oxycodone 5 mg tablet 5 - 10 mg PO Q4H PRN (Reason: pain) 7 Days Qty: 50 0RF Rx Instructions: pain scale 4-6: 5mg pain scale 7-10: 10mg acetaminophen 500 mg tablet 1,000 mg PO Q6H PRN (Reason: pain) Qty: 60 0RF Continued amlodipine 5 mg tablet 5 mg PO DAILY doxazosin [Cardura] 1 mg tablet 1 mg PO DAILY omeprazole 10 mg capsule,delayed release(DR/EC) 10 mg PO DAILY cholecalciferol (vitamin D3) 10 mcg (400 unit) capsule 10 mcg PO DAILY megestrol 20 mg tablet 20 mg PO BID Label Comments: TAKE 1 TABLET BY MOUTH TWICE A DAY Xarelto 20 mg tablet 20 mg PO DAILY Label Comments: TAKE 1 TABLET BY MOUTH EVERY DAY WITH DINNER Other Ambulatory Orders: Occupational Therapy Eval (Routine) Location: None Selected Ordered By: Kari PAN Physical Therapy Evaluation (Routine) Location: None Selected Ordered By: Kari PAN Referrals / Follow Up: Jermaine Carpio DO [Primary Care Provider] - Disposition Disposition (needs filled in before D/C Order can be placed): [facility]
--- NOTE | 2022-09-05 12:29 | PCM.TXEXTCAR ---
Documented by User: Dr. Tony Magaña DO 09/05/22 12:31 Diet Diet Order/Speech Therapy: 09/04/22 17:33 Diet: Regular - General Is pt able to select menu?: Yes Wound(s) L HIP: Wound Type: Surgical Incision L LATERAL HIP: Wound Type: Surgical Incision Therapies Weight Bearing: Weight bearing as tolerated Allergies/Procedures Done in Hospital Allergies acetaminophen [From Percocet] Allergy (Verified 09/04/22 09:05) Other Dizziness hydrocodone [From Vicodin] Allergy (Verified 09/04/22 09:05) Other dizziness morphine Allergy (Verified 09/04/22 09:05) Other Dizziness oxycodone [From Percocet] Allergy (Verified 09/04/22 09:05) Other Dizziness Follow Up Care Please Follow Up With: Tony Magaña DO Discharge Plan Admission Admit Date/Time: 09/04/22 08:05 Primary Reason for Your Visit: Left total hip arthroplasty Attending Provider: Tony Magaña Primary Care Provider: Jermaine Carpio Consulting Providers: Renato Quintana Discharge Orders/Prescriptions Prescriptions: New oxycodone 5 mg tablet 5 - 10 mg PO Q4H PRN (Reason: pain) 7 Days Qty: 50 0RF acetaminophen 500 mg tablet 1,000 mg PO Q6H PRN (Reason: pain) Qty: 60 0RF Continued amlodipine 5 mg tablet 5 mg PO DAILY doxazosin [Cardura] 1 mg tablet 1 mg PO DAILY omeprazole 10 mg capsule,delayed release(DR/EC) 10 mg PO DAILY cholecalciferol (vitamin D3) 10 mcg (400 unit) capsule 10 mcg PO DAILY megestrol 20 mg tablet 20 mg PO BID Label Comments: TAKE 1 TABLET BY MOUTH TWICE A DAY Xarelto 20 mg tablet 20 mg PO DAILY Label Comments: TAKE 1 TABLET BY MOUTH EVERY DAY WITH DINNER Other Ambulatory Orders: Occupational Therapy Eval (Routine) Location: None Selected Ordered By: Kari PAN Physical Therapy Evaluation (Routine) Location: None Selected Ordered By: Kari PAN Referrals / Follow Up: Jermaine Carpio DO [Primary Care Provider] - Disposition Disposition (needs filled in before D/C Order can be placed): [facility] Documented by User: MAXIM Rodriguez 09/06/22 15:58 Allergies/Procedures Done in Hospital Allergies acetaminophen [From Percocet] Allergy (Verified 09/04/22 09:05) Other Dizziness hydrocodone [From Vicodin] Allergy (Verified 09/04/22 09:05) Other dizziness morphine Allergy (Verified 09/04/22 09:05) Other Dizziness oxycodone [From Percocet] Allergy (Verified 09/04/22 09:05) Other Dizziness Type of Care/Length of Stay Estimated LOS: Convalescent Care Less Than 30 days Type of Care Needed: Skilled Rehab Potential: Good Prognosis: Good Additional Orders/Day of Discharge Day of Discharge: 09/06/22 Discharge Plan Admission Admit Date/Time: 09/04/22 08:05 Primary Reason for Your Visit: Left total hip arthroplasty Attending Provider: Tony Magaña Primary Care Provider: Jermaine Carpio Consulting Providers: Renato Quintana Discharge Orders/Prescriptions Prescriptions: New oxycodone 5 mg tablet 5 - 10 mg PO Q4H PRN (Reason: pain) 7 Days Qty: 50 0RF acetaminophen 500 mg tablet 1,000 mg PO Q6H PRN (Reason: pain) Qty: 60 0RF Continued amlodipine 5 mg tablet 5 mg PO DAILY doxazosin [Cardura] 1 mg tablet 1 mg PO DAILY omeprazole 10 mg capsule,delayed release(DR/EC) 10 mg PO DAILY cholecalciferol (vitamin D3) 10 mcg (400 unit) capsule 10 mcg PO DAILY megestrol 20 mg tablet 20 mg PO BID Label Comments: TAKE 1 TABLET BY MOUTH TWICE A DAY Xarelto 20 mg tablet 20 mg PO DAILY Label Comments: TAKE 1 TABLET BY MOUTH EVERY DAY WITH DINNER Other Ambulatory Orders: Occupational Therapy Eval (Routine) Location: None Selected Ordered By: Kari PAN Physical Therapy Evaluation (Routine) Location: None Selected Ordered By: Kari PAN Referrals / Follow Up: Jermaine Carpio DO [Primary Care Provider] - Disposition Disposition (needs filled in before D/C Order can be placed): [facility]
--- NOTE | 2022-09-05 12:31 | PCM.PN.ORT ---
Subjective Subjective Seen and examined doing well pain controlled denies fevers chills nausea vomiting shortness of breath or chest pain Objective Data Objective Data Vital Signs: Vital Signs Temp Pulse Resp BP Pulse Ox O2 Del Method O2 Flow Rate 97.9 F 64 16 122/69 H 94 Room Air 4 09/05/22 08:15 09/05/22 08:15 09/05/22 08:15 09/05/22 08:15 09/05/22 09:23 09/05/22 08:15 09/04/22 14:15 Oxygen Flow Rate (L/min) 4 Oxygen Delivery Method Room Air Weight: 206 lb 12.697 oz Body Mass Index (BMI) 29.6 Intake & Output: Intake and Output for Last 24 Hours 09/03/22 09/04/22 09/05/22 23:59 23:59 23:59 Intake Total 3432 / 3432 1951.25 / 1951.25 Output Total 450 / 750 1150 / 1150 Balance 2982 / 2682 801.25 / 801.25 Lab / Micro Data Result Diagrams: 09/05/22 06:20 09/05/22 06:20 Labs: Laboratory Results - last 24 hr 09/05/22 06:20: WBC 11.8 H, RBC 3.61 L, Hgb 11.7 L, Hct 35.0 L, MCV 97.0 H, MCH 32.4 H, MCHC 33.4, RDW Std Deviation 45.1 H, RDW Coeff of Angelica 12.7, Plt Count 132 L, MPV 9.2 09/05/22 06:20: Sodium 137, Potassium 4.3, Chloride 112 H, Carbon Dioxide 21.0, Anion Gap 4 L, BUN 17, Creatinine 1.18, Estim Creat Clear Calc 54.13, Est GFR (MDRD) Af Amer 77, Est GFR (MDRD) Non-Af 64, BUN/Creatinine Ratio 14.4, Glucose 159 H, Calcium 8.6 Micro: Microbiology 08/22/22 13:18 Nasal Secretion Nasal Screen MRSA/MSSA - Final Radiography Diagnostic Testing: Radiology Impression Hip X-Ray 09/04/22 13:34 IMPRESSION: Placement of total hip arthroplasty in anatomic alignment without complications. Electronically Signed: Nicola Valentin, at 13:57 EDT , Physical Exam Const alert, oriented x3 and no apparent distress General Appearance: cooperative Extremity Extremity Narrative: Dressing clean dry intact compartment soft neurovascular intact EHL tibialis anterior gastrocsoleus intact sensation light touch 2 out of 4 pedal pulse left lower extremity Assessment & Plan Assessment/Plan (1) S/P total left hip arthroplasty: PLAN: Plan Postop day #1 left total hip arthroplasty doing well pain controlled Resumed Xarelto 20 mg daily preoperative dose PT OT weightbearing as tolerated with hip precautions Pain control with oxycodone and Tylenol Dressing to be changed 09/07/2022 for the first time prior to first shower then incision should be cleaned daily with antibacterial soap and warm water and new dressing applied daily at that point. Follow-up in the office 2 weeks Discharge to TCU tomorrow when bed available
[2022-09-05] MEDS: Polyethylene Glycol 3350 17 GM PACKET PO (14:08)
[2022-09-05 21:04] VITALS: BP 132/71; PULSE 66; RESP 16; TEMP 36.9; O2SAT 97
[2022-09-05] MEDS: MEGESTROL ACETATE 20 MG TABLET PO (22:42)
[2022-09-06 02:33] VITALS: BP 132/57; PULSE 63; RESP 16; TEMP 36.6; O2SAT 97
[2022-09-06] MEDS: Senna/Docusate Sodium 1 Tablet 2 TABLET PO (06:02)
[2022-09-06] MEDS: Acetaminophen 500 MG Tablet 1000 MG PO ×2 (06:02→13:48)
[2022-09-06 06:19] LABS: Hematocrit 33.5 % (40-54); Hemoglobin 11.2 g/dL (13.0-16.5); Mean Corp Hgb Conc 33.4 g/dL (32-36); Mean Corpuscular Hgb 33.1 pg (27.0-32.0); Mean Corpuscular Volume 99.1 fL (80-94); Mean Platelet Vol. 8.9 fl (6.2-12.0); Platelet Count 126 K/mm3 (150-450); RBC Distribution Width CV 13.2 % (11.6-14.6); RBC Distribution Width SD 47.6 fl (35.1-43.9); Red Blood Count 3.38 M/mm3 (4.6-6.2); White Blood Count 9.8 K/mm3 (4.4-11.0)
[2022-09-06 08:00] VITALS: BP 149/57; PULSE 69; RESP 16; TEMP 36.8; O2SAT 96
[2022-09-06] MEDS: oxyCODONE 5 MG Tablet PO (08:05)
[2022-09-06] MEDS: Polyethylene Glycol 3350 17 GM PACKET PO (08:14)
[2022-09-06] MEDS: Pantoprazole Sodium 20 MG Tablet PO (08:15)
[2022-09-06] MEDS: amLODIPine 5 MG Tablet PO (08:15)
[2022-09-06] MEDS: MEGESTROL ACETATE 20 MG TABLET PO (08:15)
[2022-09-06] MEDS: Doxazosin 1 MG Tablet PO (08:15)
[2022-09-06 09:11] VITALS: O2SAT 99
--- NOTE | 2022-09-06 12:06 | DS.PCM_ITS ---
Providers Date of Admission: 09/04/22 Date of Discharge: 09/06/22 Primary Care Physician: Dr. Jermaine Carpio, Consultations 09/04/22 13:19 Consult: Hospitalist Routine Consulting Provider: Miranda Chappell Reason for Consult: medical management EMERGENT Consult: No MD Notified: Yes Date Notified: 09/04/22 Time Notified: 15:33 Method of Notification: Text Reason For Visit: LT TOTAL HIP W YANNI Diagnosis Discharge Diagnosis (1) Osteoarthritis of hip: Status: Acute Code(s): M16.9 - Osteoarthritis of hip, unspecified Medications at Discharge Home Medications amlodipine 5 mg tablet 5 mg PO DAILY Check with primary doctor 07/11/22 cholecalciferol (vitamin D3) 10 mcg (400 unit) capsule 10 mcg PO DAILY Check with primary doctor 07/11/22 doxazosin 1 mg tablet (Cardura) 1 mg PO DAILY Check with primary doctor 07/11/22 omeprazole 10 mg capsule,delayed release 10 mg PO DAILY Check with primary doctor 07/11/22 megestrol 20 mg tablet 20 mg PO BID Check with primary doctor 08/22/22 rivaroxaban 20 mg tablet (Xarelto) 20 mg PO DAILY blood clots 09/04/22 oxycodone 5 mg tablet 5 - 10 mg PO Q4H PRN pain 7 days #50 tabs 09/05/22 acetaminophen 500 mg tablet 1,000 mg PO Q6H PRN pain #60 tabs 09/06/22 Hospital Course Operations total hip replacement (Left) Summary of Care Provided Hospital Course: The patient is a 77 year old male who underwent a CT-guided Makoplasty assisted left total hip arthroplasty on 09/04/2022 without any intraoperative complications. He has had long-standing arthrosis of the hip and has failed conservative treatment and wished to undergo the elective procedure. He underwent the procedure without any intraoperative complication and did receive antibiotics which were discontinued within 23 hours postoperatively. His vital signs remained stable postoperatively as well as his hemoglobin and hematocrit and he did not require any blood transfusion. Seen by physical therapy who helped progress ambulation and he was started on mechanical and re-started on chemical DVT prophylaxis in the form of SCDs, ALLYN hose and Xarelto 20mg daily. Will be transferred to the TCU when bed is available and be in physical therapy there. Will follow-up in the office 2 weeks post-op for staple removal and wound check. Physical Exam Narrative Patient was seen and examined today. He is doing well overall. He states that his pain is well controlled. Denies fevers, chills, nausea, vomiting, shortness of breath or chest pain. He states he has not had a bowel movement, but has been given Miralax and a stool softener. He has worked with PT and they had him ambulating the unit with a walker and he states that this went well. Const alert, oriented x3 and no apparent distress General Appearance: cooperative Extremity Extremity Narrative: Upon inspection of the left hip there is a dressing covering the incisional site that is clean, dry and intact. No ecchymosis noted. TTP surrounding the incision site, no signs of infection. Able to plantarflex, dorsiflex and wiggle toes. Soft compartments. Negative Homans. Palpable pedal pulses. Weight / BMI Weight Weight: 206 lb 12.697 oz Body Mass Index (BMI) 29.6 ABG / Lab / Microbiology Data Result Diagrams: 09/06/22 05:55 09/05/22 06:20 Laboratory: Laboratory Results - last 24 hr 09/06/22 05:55: WBC 9.8, RBC 3.38 L, Hgb 11.2 L, Hct 33.5 L, MCV 99.1 H, MCH 33. 1 H, MCHC 33.4, RDW Std Deviation 47.6 H, RDW Coeff of Angelica 13.2, Plt Count 126 L , MPV 8.9 Microbiology: Microbiology 09/06/22 11:10 Nasal Secretion SARS-CoV-2 Antigen (Rapid) - Final 08/22/22 13:18 Nasal Secretion Nasal Screen MRSA/MSSA - Final D/C Instructions Discharge Diet: No restrictions Call your doctor if you observe: Shortness of breath and Chest pain Additional Dressing/Incision Instructions: Do not shower 72hrs. Begin daily showering warm water antibacterial soap postop day #3( 72hrs Post-operatively) and then daily. Leave the dressing on for 72 hours postoperatively then may remove prior to first shower and change dressing daily after this until no drainage for 2 consecutive days then may leave open to air. Follow hip precautions that were reviewed in hospital. Wear compression stockings, may remove at night. Start physical therapy as directed in hospital. Follow prescriptions instructions do not take any other pain medication or differ dosing without consulting your physician. Do not take oral NSAIDs until blood thinner has been completed , then may begin the day after completion if needed . Call Dr. Magaña's office with any concerns. Please Follow Up With: Tony Magaña DO When: 2 weeks Meaningful Use Info Meaningful Use Diagnoses (Choose all that apply): None applicable Discharge Plan Admission Admit Date/Time: 09/04/22 08:05 Primary Reason for Your Visit: Left total hip arthroplasty Attending Provider: Tony Magaña Primary Care Provider: Jermaine Carpio Consulting Providers: Renato Quintana Discharge Orders/Prescriptions Prescriptions: New oxycodone 5 mg tablet 5 - 10 mg PO Q4H PRN (Reason: pain) 7 Days Qty: 50 0RF acetaminophen 500 mg tablet 1,000 mg PO Q6H PRN (Reason: pain) Qty: 60 0RF Continued amlodipine 5 mg tablet 5 mg PO DAILY doxazosin [Cardura] 1 mg tablet 1 mg PO DAILY omeprazole 10 mg capsule,delayed release(DR/EC) 10 mg PO DAILY cholecalciferol (vitamin D3) 10 mcg (400 unit) capsule 10 mcg PO DAILY megestrol 20 mg tablet 20 mg PO BID Label Comments: TAKE 1 TABLET BY MOUTH TWICE A DAY Xarelto 20 mg tablet 20 mg PO DAILY Label Comments: TAKE 1 TABLET BY MOUTH EVERY DAY WITH DINNER Other Ambulatory Orders: Occupational Therapy Eval (Routine) Location: None Selected Ordered By: Kari PAN Physical Therapy Evaluation (Routine) Location: None Selected Ordered By: Kari PAN Referrals / Follow Up: Jermaine Carpio DO [Primary Care Provider] - Disposition Disposition (needs filled in before D/C Order can be placed): [facility] Facility
[2022-09-06 13:53] VITALS: BP 125/59; PULSE 65; RESP 16; TEMP 37.3; O2SAT 97
--- NOTE | 2022-09-06 15:34 | NURSING ---
Report given to Jodi CASAS in TCU at this time.
--- NOTE | 2022-09-06 15:59 | CASEMGMT ---
Social Work SW waiting on transfer summary and discharge summary to be signed and finalized by MD Dotson. MD Dotson out of state. MAXIM Dotson in to complete discharge summary. Pt was transferred to TCU without SW knowing. MAXIM Pierce was called and was able to sign the transfer summary in draft. SW not able to add any documents to pt chart as pt off the floor already. [facility]
--- NOTE | 2022-09-06 16:16 | PN.HOSP_ITS ---
Reason for Visit Reason for Visit: Diagnoses Other acute postprocedural pain (09/04/22) Osteoarthritis of hip, unspecified (09/04/22) Encounter for other preprocedural examination (09/04/22) Presence of left artificial hip joint (09/04/22) Follow-up for perioperative left hip total arthroplasty Objective Data Objective Data Vital Signs: Vital Signs Temp Pulse Resp BP Pulse Ox O2 Del Method O2 Flow Rate 99.2 F H 65 16 125/59 H 97 Room Air 4 09/06/22 13:53 09/06/22 13:53 09/06/22 13:53 09/06/22 13:53 09/06/22 13:53 09/06/22 13:53 09/04/22 14:15 Oxygen Flow Rate (L/min) 4 Oxygen Delivery Method Room Air Weight: 206 lb 12.697 oz Body Mass Index (BMI) 29.6 Intake & Output: Intake and Output for Last 24 Hours 09/04/22 09/05/22 09/06/22 23:59 23:59 23:59 Intake Total 3432 / 3432 2751.25 / 2751.25 Output Total 450 / 750 2300 / 2300 300 / 300 Balance 2982 / 2682 451.25 / 451.25 -300 / -300 Lab / Micro Data Result Diagrams: 09/06/22 05:55 09/05/22 06:20 Labs: Laboratory Results - last 24 hr 09/06/22 05:55: WBC 9.8, RBC 3.38 L, Hgb 11.2 L, Hct 33.5 L, MCV 99.1 H, MCH 33.1 H, MCHC 33.4, RDW Std Deviation 47.6 H, RDW Coeff of Angelica 13.2, Plt Count 126 L, MPV 8.9 Micro: Microbiology 09/06/22 11:10 Nasal Secretion SARS-CoV-2 Antigen (Rapid) - Final 08/22/22 13:18 Nasal Secretion Nasal Screen MRSA/MSSA - Final Physical Exam Narrative Seen and examined. Patient denies history of chronic heart disease or lung disease. No previous stroke. Does not have chest pain or shortness of breath. Mild pain over left hip operative region. Patient had PT and OT in the morning. Patient last bowel movement was on Saturday in the morning.Passing flatus. Physical exam General: Alert, Oriented x3, Cooperative HEENT: Atraumatic, PERRLA, EOMI, Normocephalic Oral: Oral mucosa moist. No Gingival or Mucosal Lesions/ Ulcerations Neck: Supple, No JVD, Negative Carotid Bruits Lungs: Air entry diminished in bilateral lung bases. No crepitation/rhonchi Cardiovascular: Regular rate, Regular Rhythm, Normal S1, Normal S2, No murmurs Abdomen: Bowel Sounds Present, Soft, Non Tender, Non-Distended : Voiding urine spontaneously. No dysuria. No renal angle tenderness. No suprapubic tenderness. Extremities: No edema, Capillary Refill Less than 3 Seconds Skin: Left hip surgical dressing is dry. No hematoma or bruise or bleeding. Tenderness is much improved. Musculoskeletal: No Tenderness to Palpation of Joints or Extremities Neurological: Cranial nerves II-XII grossly intact, DTR 2+/4 and Symmetrical, Neuro grossly intact Psych/Mental Status: Normal Affect, Appropriate. Assessment & Plan Assessment/Plan (1) Osteoarthritis of hip: PLAN: Plan The patient is a 77 y/o M w/ PMHx: GERD, Hx VTE, Hx Prostate CA s/p prostatectomy/radiation/chemotherapy, OA, GERD who presents to the [facility] on 09/04/22 with history of severe L hip DJD admitted per Dr. Magaña for CT-guided Makoplasty assisted left total hip arthroplasty. #1. Perioperative management of severe Osteoarthritis, left hip status post CT- guided MAKOplasty assisted left total hip arthroplasty: Patient was admitted for perioperative care after elective surgery. Pain control. Patient spontaneously voided urine. Had not bowel movement for 1 day. On stool softener. MiraLAX added. Mild indigestion on Mylanta. PT OT evaluation and management. Xarelto for DVT prophylaxis. Patient had dizziness/nausea or other side effects of opioids medication during previous surgical procedure. 09/06: Last bowel movement Saturday morning therefore patient does not qualify for the definition of constipation which is 3 days without bowel movement. Continue senna as MiraLAX. Patient was given option for Dulcolax oral tablet but he said he will want to watch out for now therefore may be Dulcolax 10 mg tomorrow a.m. if patient returned bowel movement by tomorrow morning in SNF. Medically stable for discharge. #2. History of VTE: Patient with history DVT, PE, Xarelto resumed as mentioned above. #3. Hypertension: BP is in normal range 122/69. Continue home regimen including doxazosin, amlodipine, PRN hydralazine. #4. History of prostate cancer with BPH: Status post prostatectomy/radiation/chemotherapy. Continue doxazosin and megestrol. Patient voiding urine spontaneously. No acute complaint of dysuria or new lower urinary tract symptoms. Follow-up with urology and oncology as scheduled. #5. GERD: Continue patient home omeprazole regimen. #6. DVT prophylaxis: As noted resume patient home Xarelto regimen once cleared by orthopedic surgery given recent OR. The patient is medically stable for discharge to SNF Charges/Coding Visit Charges Inpatient E&M: 77747 Subs Hosp L2
== END 2022-09-06 16:01 | disposition skilled nursing facility (03) | DRG 470 ==
LOC: ACINP 08:13 → MS3 13:45
PROVIDERS: Anesthesiology; Admitting Provider Orthopaedic Surgery; PCP Family Medicine; Referring Provider Orthopaedic Surgery; Visit Provider Orthopaedic Surgery
PROC: 8E0Y0CZ Robotic Assisted Procedure of Lower Extremity, Open Approach (ICD-10-PCS; CPT 27130; principal; 2022-09-04 10:15)
DX: M16.12 Unilateral primary osteoarthritis, left hip (principal); I10 Essential (primary) hypertension; I25.2 Old myocardial infarction; M51.36 Other intervertebral disc degeneration, lumbar region; M47.818 Spondylosis without myelopathy or radiculopathy, sacral and sacrococcygeal region; K21.9 Gastro-esophageal reflux disease without esophagitis; N40.0 Benign prostatic hyperplasia without lower urinary tract symptoms; Z79.01 Long term (current) use of anticoagulants; Z79.899 Other long term (current) drug therapy; Z86.718 Personal history of other venous thrombosis and embolism; Z85.46 Personal history of malignant neoplasm of prostate; Z92.21 Personal history of antineoplastic chemotherapy; Z92.3 Personal history of irradiation
CPT/HCPCS: 36415; 36416; 73502; 80048; 82962; 82985; 83036; 83735; 85025; 85027; 85610; 85730; 86850; 86900; 86901; 87081; 87426; 88305; 88311; 94668; 97110; 97116; 97162; 97166; 97530; 97535; 99252; C1776; J7120; G0463; J2405; J3475

== ENCOUNTER 2022-09-06 16:00 | Inpatient (IN) | payer MEDICARE, OTHER, SELFPAY ==
[2022-09-06 16:25] VITALS: BP 139/62; PULSE 76; RESP 16; TEMP 36.8; O2SAT 97; BMI 30.4
[2022-09-06] MEDS: oxyCODONE 5 MG Tablet PO (18:37)
[2022-09-06] MEDS: Rivaroxaban 20 MG Tablet PO (18:40)
--- NOTE | 2022-09-06 19:19 | HP.PCM_ITS ---
HPI - General General Date of Admission: 09/06/22 Date of Service: 09/06/22 Chief Complaint: Here for rehabilitation. HPI Narrative SEE PARIS, is a 77 Male who presents with followin09/04/2022 Admit to [facility]. 09/04/[address] Dr[address] Magaña performed CT guided Makoplasty assisted left total hip arthroplasty. 09/05/2022 Mild indigestion, voiding urine spontaneously. Pain control. Colace, Miralax for constipation. PT/OT for debility. Xarelto for DVT prophylaxis AND history of DVT/PE. Doxazosin, Amlodipine, PRN Hydralazine for hypertension. Prostate cancer treated with surgery, radiation, chemotherapy. 09/05/2022 Patient prefers SNF prior to discharge home. 09/06/2022 Admit to TCU with debility, here for rehabiltiation, strengthening, prior to discharge home with . PFSH Medical History Arthritis DVT (deep venous thrombosis) GERD (gastroesophageal reflux disease) History of chemotherapy History of prostate cancer Hx of blood clots Hx of radiation therapy Non-smoker Home Medications amlodipine 5 mg tablet 5 mg PO DAILY BP 07/11/22 [History Last Taken 09/03/22] cholecalciferol (vitamin D3) 10 mcg (400 unit) capsule 10 mcg PO DAILY Check with primary doctor 07/11/22 [History Last Taken 09/03/22] doxazosin 1 mg tablet (Cardura) 1 mg PO DAILY BPH 07/11/22 [History Last Taken 09/03/22] omeprazole 10 mg capsule,delayed release 10 mg PO DAILY Check with primary doctor 07/11/22 [History Last Taken 09/03/22] megestrol 20 mg tablet 20 mg PO BID hormone 08/22/22 [History Last Taken 09/03/22] rivaroxaban 20 mg tablet (Xarelto) 20 mg PO DAILY blood clots 09/04/22 [History Last Taken 09/01/22 18:00] oxycodone 5 mg tablet 5 - 10 mg PO Q4H PRN pain 7 days #50 tabs 09/05/22 [Rx Last Taken Unknown] acetaminophen 500 mg tablet 1,000 mg PO Q6H PRN pain #60 tabs 09/06/22 [Rx Last Taken Unknown] Allergy/AdvReac Type Severity Reaction Status Date / Time acetaminophen [From Percocet] Allergy Other Verified 09/04/22 09:05 hydrocodone [From Vicodin] Allergy Other Verified 09/04/22 09:05 morphine Allergy Other Verified 09/04/22 09:05 oxycodone [From Percocet] Allergy Other Verified 09/04/22 09:05 Surgical History (Updated 09/06/22 @ 19:[address] Mike Frost MD) History of total left hip arthroplasty Hx of prostatectomy Social History (Updated 09/06/22 @ 19:[address] Mike Frost MD) household members: spouse Smoking Status: Never smoker alcohol intake: never substance use type: does not use ROS Constitutional Constitutional: Denies chills, fever(s) or weight gain ENT HEENT: Denies headache(s), nasal congestion or nasal discharge Cardiovascular Cardiovascular: Denies chest pain or palpitations Respiratory/Chest Respiratory/Chest: Denies cough, excessive phlegm production or shortness of breath with exertion Gastrointestinal Gastrointestinal: Denies abdominal pain, nausea or vomiting Genitourinary Genitourinary: Denies dysuria Musculoskeletal Musculoskeletal: Denies joint pain or joint swelling Integumentary Integumentary: Denies rash or wounds Neurologic Neurologic: Denies focal weakness, numbness or tingling Psychiatric Psychiatric: Denies anxiety, auditory hallucinations, depression, homicidal ideation or suicidal ideation Vital Signs Vital Signs Vital Signs: 09/06/22 16:25 Temperature 98.2 F Temperature Source Temporal Pulse Rate 76 Respiratory Rate 16 Blood Pressure 139/62 H Blood Pressure Mean 87 Blood Pressure Source Monitor Blood Pressure Position Sitting Blood Pressure Location Right Arm Pulse Ox 97 Oxygen Delivery Method Room Air Weight Weight: 96.2 kg Body Mass Index (BMI) 30.4 Physical Exam Const alert General Appearance: cooperative HEENT normocephalic Eyes PERRL and EOMs intact bilaterally Neck supple, no JVD and no carotid bruits Resp normal respiratory effort, normal air movement and clear to auscultation bilaterally Cardio regular rate and regular rhythm GI normal to inspection, nondistended, normoactive bowel sounds, non-tender and non-distended Extremity normal capillary refill General Extremity: Negative for edema Skin no rashes or lesions noted General Skin Exam: no breakdown Psych affect normal Appearance: appropriate Assessment & Plan Assessment/Plan (1) Debility: (2) S/P total left hip arthroplasty: (3) Osteoarthritis of hip: (4) Prostate cancer: (5) Hypertension: (6) BPH (benign prostatic hyperplasia): (7) GERD (gastroesophageal reflux disease): (8) Depression: (9) History of DVT (deep vein thrombosis): (10) History of pulmonary embolism: PLAN: Plan 77 year old male with below past medical history hospitalized for left total hip arthroplasty 09/04/[address] Magaña, admitted to TCU with debility, here for rehabilitation, strengthening, prior to discharge home with . * Debility - PT/OT. * Pain - Tylenol 1000mg q8h, Oxycodone 5-10mg q4h prn. * Bowel - Miralax 17gm daily, senna/colace 2 tablets bid, MOM 30ml po x 1 prn. * Adult immunization - Administer pneumonia vaccine, covid19 vaccine, flu vaccine as appropriate. * DVT prophylaxis - on Xarelto. * Hypertension - Amlodipine 5mg daily. * BPH - Doxazosin 1mg qhs. * Prostate cancer status post surgery, radiation chemotherapy - Megace 20mg bid. * GERD - Pantoprazole 20mg daily. * History of DVT/PE - Xarelto 20mg daily. * Nausea - Scopolamine 1mg patch TD q72h.
[2022-09-06] MEDS: Doxazosin 1 MG Tablet PO (20:04)
[2022-09-06] MEDS: Senna/Docusate Sodium 1 Tablet 2 TABLET PO (20:07)
--- NOTE | 2022-09-06 21:45 | NURSING ---
Dr. Frost contacted via telephone, notified of patient complaint of heaviness to chest/abdominal discomfort, no c/o radiation upon assessment. Patient states discomfort mostly in belly. EKG ordered, discussed EKG result and compared to previous EKG with same result. Discussed current Dx list. Patient reports discomfort improved after administered Mylanta as ordered for gastric distress, VSS. No new orders per Dr. Frost.
--- NOTE | 2022-09-06 21:51 | NURSING ---
Addendum entered by Mary Jane Acevedo 09/06/22 23:00: Presents in bed with eyes closed, opens eyes to verbal stimuli, pain assessed, patient rates pain 0/10, I have no pain, I feel more relaxed. Patient expresses thanks. No distress observed or reported. Call light in reach. Denies requests. Addendum entered by Mary Jane Acevedo 09/06/22 22:09: Patient cooperative at this time, expresses stress related to 's current health conditions and patients need to be hospitalized. Patient encouraged to utilize call button at any time for staff assist, verbalizes understanding. Patient updated on all new orders received from Dr. Frost. Patient states has taken Ultram in the past with no allergy to medication. Patient accepts Lorazepam as ordered, Oxy 10mg x1 administered per order, patient expresses thanks. Offered to reposition patient x2 staff assist, patient declined. No distress observed or reported. Calm and cooperative at this time. Call light within reach. Denies further requests. Original Note: Patient irritable, agitated, yelling out, patient immediately assessed, patient verbally aggressive yelling staff wont help me states call light has been on for a half hour, patient call light not activated and within reach, patient notified that call light is not on, reeducated distribution field technician light function and how to use to request staff assist, patient demanding stronger pain med now. Dr. Frost contacted notified of patient behavior and request for stronger pain medication at this time for left hip pain. A&Ox3, disorganized thinking at times. Discussed allergies with patient prior to call to Dr. Frost patient stated listed allergies gave me nausea and upset stomach, morphine made me dizzy, when patient asked about current order for Oxy and med being listed as allergy, patient stated well It's obviously not an allergy is it!. Received new orders from Dr. Frost at this time: 1. Lorazepam 0.5mg oral [id number] as needed anxiety/restless/sleep, give med at this time if patient will accept 2.Oxy 10mg oral now 3.D/c Oxycodone 5-10mg 4.Start Oxycodone 10mg Q4h PRN pain scale 6-10 5.Tramadol 50mg Q6h prn pain scale 1-5 all orders reported back to Dr. Frost
[2022-09-06 22:00] VITALS: PULSE 75; RESP 16; O2SAT 98
[2022-09-06] MEDS: LORazepam 0.5 MG Tablet PO (22:06)
[2022-09-06] MEDS: oxyCODONE 5 MG Tablet 10 MG PO (22:06)
--- NOTE | 2022-09-07 03:10 | NURSING ---
COREROOM FOUNDRY LABORER x2 reports patient observed self-transferring to toilet after spilling urinal. Assisted to bed x2 x ray equipment tester. Patient educated on importance of maintaining hip-precautions and encouraged to request staff assist to promote safety. A&Ox3. Patient irritable, stating did not utilize call button further stating why would I ring, no one wants to help me anyway. Patient reassured that staff is available to assist patient with needs and encouraged to utilize call light for any request or need at any time for staff assistance, patient replies whatever. Offered patient assist to reposition for comfort. Patient accepts assists with repositioning. Pain assessed, patient states I don't have any pain, I don't need anything. Personal items within reach, bed in lowest position, call light within reach. Denies requests. Call light in reach. No distress observed or reported.
[2022-09-07] MEDS: Pantoprazole Sodium 20 MG Tablet PO (05:07)
[2022-09-07] MEDS: Polyethylene Glycol 3350 17 GM PACKET PO (05:07)
[2022-09-07] MEDS: Senna/Docusate Sodium 1 Tablet 2 TABLET PO ×2 (05:08→18:30)
[2022-09-07 05:41] LABS: Absolute Lymphocyte Count 1.04 X10^3/uL (0.83-4.51); Absolute Neutrophil Count 5.3 X10^3/uL (2.0-7.7); Basophil# 0.03 X10^3/uL; Basophil% 0.4 % (0-1); Eosinophil# 0.33 X10^3/uL; Eosinophils% 4.4 % (0-5); Hematocrit 33.8 % (40-54); Hemoglobin 10.9 g/dL (13.0-16.5); Lymphocyte # 1.04 X10^3/ul (0.83-4.51); Lymphocyte % 13.9 % (19-41); Mean Corp Hgb Conc 32.2 g/dL (32-36); Mean Corpuscular Hgb 32.5 pg (27.0-32.0); Mean Corpuscular Volume 100.9 fL (80-94); Mean Platelet Vol. 8.9 fl (6.2-12.0); Monocyte# 0.69 X10^3/uL; Monocyte% 9.2 % (0-10); NRBC Flagged by Analyzer 0 % (0-5); Neutrophil # 5.33 X10^3/uL (2.7-7.7); Neutrophil % 71.4 % (47-70); Platelet Count 121 K/mm3 (150-450); RBC Distribution Width SD 48.4 fl (35.1-43.9); Red Blood Count 3.35 M/mm3 (4.6-6.2); White Blood Count 7.5 K/mm3 (4.4-11.0)
[2022-09-07 06:07] LABS: Anion Gap 3 (5-15); BUN 16 mg/dL (7-18); BUN/Creat Ratio 17.2 RATIO (10-20); Calcium,Total 8.5 mg/dL (8.5-10.1); Chloride 111 mmol/L (98-107); Creatinine, Serum 0.93 mg/dL (0.70-1.30); EST Glomerular Filtration Rate 84 mL/min (>60); Est Glom Filt Rate - Afr Amer 101 mL/min (>60); Estimated Creatinine Clearance 68.68 ml/min; Glucose 104 mg/dL (74-106); Potassium 3.7 mmol/L (3.5-5.1); Sodium Level 137 mmol/L (136-145)
[2022-09-07] MEDS: LORazepam 0.5 MG Tablet PO ×2 (09:10→15:10)
[2022-09-07] MEDS: traMADol 50 MG Tablet PO (09:10)
[2022-09-07] MEDS: Scopolamine 1mg/72hr Patch 1 PATCH TD (09:11)
[2022-09-07] MEDS: amLODIPine 5 MG Tablet PO (09:11)
--- NOTE | 2022-09-07 09:46 | PCM.PN.DRR ---
TCU RX Drug Regimen Review Subjective: 77 YOM admitted to TCU on 09/06/22 S/P L-hip arthroplasty. Admitted to TCU for strengthening and rehabilitation prior to D/C home where he resides with his . Objective: Allergies acetaminophen [From Percocet] Allergy (Verified 09/04/22 09:05) Other Dizziness hydrocodone [From Vicodin] Allergy (Verified 09/04/22 09:05) Other dizziness morphine Allergy (Verified 09/04/22 09:05) Other Dizziness oxycodone [From Percocet] Allergy (Verified 09/04/22 09:05) Other Dizziness Current Medications Generic Name Dose Route Start Last Admin Trade Name Freq PRN Reason Stop Dose Admin Amlodipine Besylate 5 mg 09/07/22 08:00 09/07/22 09:11 Amlodipine 5 Mg Tablet PO 5 mg DAILY@0800 VICTORIANO Administration Doxazosin Mesylate 1 mg 09/06/22 22:00 09/06/22 20:04 Doxazosin 1 Mg Tablet PO 1 mg QHS VICTORIANO Administration Lorazepam 0.5 mg 09/06/22 21:49 09/07/22 09:10 Lorazepam 0.5 Mg Tablet PO 0.5 mg Q6H PRN PRN Administration ANXIETY/RESTLESSNESS/SLEEP Magnesium Hydroxide 30 ml 09/06/22 19:28 Magnesium Hydroxide 30 Ml Udc PO X1 PRN CONSTIPATION Megestrol Acetate 20 mg 09/07/22 07:57 Megestrol Acetate 20 Mg Tablet PO BID PRN PRN Hot flashes Oxycodone HCl 10 mg 09/06/22 21:48 Oxycodone 5 Mg Tablet PO Q4H PRN PRN Pain Score 6-10 Pantoprazole Sodium 20 mg 09/07/22 06:00 09/07/22 05:07 Pantoprazole Sodium 20 Mg Tablet PO 20 mg DAILY VICTORIANO Administration Polyethylene Glycol 17 gm 09/07/22 06:00 09/07/22 05:07 Polyethylene Glycol 3350 17 Gm Packet PO 17 gm DAILY VICTORIANO Administration Rivaroxaban 20 mg 09/06/22 17:00 09/06/22 18:40 Rivaroxaban 20 Mg Tablet PO 20 mg SUPPER VICTORIANO Administration Scopolamine HBr 1 patch 09/07/22 10:00 09/07/22 09:11 Scopolamine 1mg/72hr Patch TD 1 patch Q3D@1000 VICTORIANO Administration Senna/Docusate Sodium 2 tablet 09/06/22 19:30 09/07/22 05:08 Senna/Docusate Sodium 1 Tablet PO 2 tablet BID VICTORIANO Administration Tramadol HCl 50 mg 09/06/22 21:49 09/07/22 09:10 Tramadol 50 Mg Tablet PO 50 mg Q6H PRN PRN Administration Pain Score 1-5 Tuberculin PPD 0.1 ml 09/07/22 10:00 Tuberculin,Purif.Prot.Deriv. 50 Tu/Ml Vial ID 09/07/22 10:01 X1 ONE Tuberculin PPD 0.1 ml 09/14/22 10:00 Tuberculin,Purif.Prot.Deriv. 50 Tu/Ml Vial ID 09/14/22 10:01 X1 ONE Problem List (Last Reviewed 09/06/22 @ 19:[address] Mike Frost MD) History of pulmonary embolism (Acute) History of DVT (deep vein thrombosis) (Acute) Depression (Acute) GERD (gastroesophageal reflux disease) (Acute) BPH (benign prostatic hyperplasia) (Acute) Hypertension (Chronic) Debility (Acute) S/P total left hip arthroplasty (Acute) Osteoarthritis of hip (Acute) Prostate cancer (Acute) Vital Signs Temp Pulse Resp BP Pulse Ox O2 Del Method 98.2 F 75 16 139/62 H 98 Room Air 09/06/22 16:25 09/06/22 22:00 09/06/22 22:00 09/06/22 16:25 09/06/22 22:00 09/06/22 22:00 Oxygen Delivery Method Room Air Weight: 96.2 kg Body Mass Index (BMI) 30.4 Sodium 137 mmol/L (136-145) 09/07/22 05:32 Potassium 3.7 mmol/L (3.5-5.1) 09/07/22 05:32 Chloride 111 mmol/L (98-107) H 09/07/22 05:32 Carbon Dioxide 23.0 mmol/L (21.0-32.0) 09/07/22 05:32 Anion Gap 3 (5-15) L 09/07/22 05:32 BUN 16 mg/dL (7-18) 09/07/22 05:32 Creatinine 0.93 mg/dL (0.70-1.30) 09/07/22 05:32 Est GFR (MDRD) Af Amer 101 mL/min (>60) 09/07/22 05:32 Est GFR (MDRD) Non-Af 84 mL/min (>60) 09/07/22 05:32 BUN/Creatinine Ratio 17.2 RATIO (10-20) 09/07/22 05:32 Glucose 104 mg/dL (74-106) 09/07/22 05:32 Assessment/Plan: 1. Pain: Oxycodone 10mg PO Q4h PRn Pain 6-10, Tramadol 50mg PO Q6h PRN Pain 1-5. Please continue to monitor for increased/decreased S/S pain, PRN medication usage, respiratory depression, oversedation, and constipation with narcotic medications. -To date, the patient has sed 1 dose of oxycodone, and 1 dose of tramadol. Pre-medication pain scores rated 4-9/10, post medication scores rated 0-5. Pain appears controlled at this time. 2. DVT/PE History: Xarelto 20mg PO Daily w/ supper. Please continue to monitor H/H (Hgb 10.9, Hct 33.8), S/S bleeding/bruising, S/S repeat clot. 3. HTN: Norvasc 5mg PO daily. Please continue to monitor for swelling, BP (last 139/62). 4. BPH: Doxazosin 1mg PO QHS. Please continue to monitor for urinary retention, BP. 5. GERD: Protonix 20mg PO Daily. Please continue to monitor for S/S GERD exacerbation, stomach upset, nausea. Please also encourage non-pharmacologic treatments also to help minimize GERD flare-ups. 6. Prostate Cancer: Megace 20mg PO BID PRN. Per home medication list, pt to be on medication twice daily scheduled, not PRN. Please evaluate if medication actually supposed to be scheduled, thank you. 7. Nausea: Scopolamine Patch Q72h. Please continue to monitor for medication effectiveness, local site irritation, drowsiness. 8. Bowel: Miralax 17g PO Daily, Senna/Docusate 2 tab PO BID, MOM 30mL PO x1 PRN. Please continue to monitor for increased/decreased constipation and/or diarrhea. - The patient has not had a documented BM, but pt has been admitted <48hrs. Assessment/Plan for indications treated with psychotropic medications: 9. Anxiety/Agitation: Lorazepam 0.5mg PO Q6h PRN. Please evaluate use to determine if a GDR is clinically indicated, thank you. Please monitor for oversedation, especially given concomitant narcotic use. - To date, the patient has used 2 doses of medication. Medical chart and medication regimen reviewed. The following medication irregularities or issues were identified: 1.Prostate Cancer: Megace 20mg PO BID PRN. Per home medication list, pt to be on medication twice daily scheduled, not PRN. Please evaluate if medication actually supposed to be scheduled, thank you. 2. Anxiety/Agitation: Lorazepam 0.5mg PO Q6h PRN. Please evaluate use to determine if a GDR is clinically indicated, thank you. Date of Note:: 09/07/22
--- NOTE | 2022-09-07 11:35 | NURSING ---
Director Mobile Note; Activity Asset: Katherin Pickens is independent in his choice of daily activities. Celio stated he is not interested in group activities at this time, will continue to do social visit and encourage small group activities for social well-being. Rodríguez will bring his items from home and her will watch TV.
--- NOTE | 2022-09-07 12:38 | CASEMGMT ---
Social Work Met with patient to complete initial assessment. Introduced self and role. Verified contacts. Educated to Medicare benefit. Encouraged to contact secondary insurance to ensure copay coverage. Pt stated my insurance will cover it. Discussed code status and MOLST form. Pt confirmed full code, MOLST placed in foldvijay. Pt agreed to have bring in copies of advanced directives. Pt's goal is to return home at PLOF with . SW to continue to follow for DC planning. Lety Davila, MAVERICK BRIM PLATER
[2022-09-07] MEDS: oxyCODONE 5 MG Tablet 10 MG PO (15:04)
[2022-09-07] MEDS: Tuberculin,Purif.prot.deriv. 50 TU/ML Vial 0.1 ML ID (15:08)
[2022-09-07 15:57] VITALS: BP 118/65; PULSE 89; RESP 14; TEMP 36.5; O2SAT 94
[2022-09-07] MEDS: Rivaroxaban 20 MG Tablet PO (18:30)
[2022-09-07 21:20] VITALS: BP 145/69; PULSE 65
[2022-09-07] MEDS: Doxazosin 1 MG Tablet PO (21:23)
[2022-09-08] MEDS: Polyethylene Glycol 3350 17 GM PACKET PO (05:15)
[2022-09-08] MEDS: Senna/Docusate Sodium 1 Tablet 2 TABLET PO ×2 (05:15→18:01)
[2022-09-08] MEDS: Pantoprazole Sodium 20 MG Tablet PO (05:15)
[2022-09-08] MEDS: Magnesium Hydroxide 30 ML UDC PO (05:18)
[2022-09-08] MEDS: amLODIPine 5 MG Tablet PO (07:59)
[2022-09-08] MEDS: oxyCODONE 5 MG Tablet 10 MG PO (07:59)
[2022-09-08 13:56] VITALS: BP 108/49; PULSE 64; RESP 14; TEMP 37.1; O2SAT 99
[2022-09-08] MEDS: Rivaroxaban 20 MG Tablet PO (18:00)
[2022-09-08 20:45] VITALS: BP 153/79; PULSE 79; RESP 16; RESP 18; O2SAT 94
[2022-09-08] MEDS: LORazepam 0.5 MG Tablet PO (20:51)
[2022-09-08] MEDS: Doxazosin 1 MG Tablet PO (20:52)
--- NOTE | 2022-09-08 20:53 | NURSING ---
Presents in bed, HOB elevated,watching baseball on television. A&Ox3. PRN Ativan requested by patient at this time.When patient asked cause of anxiety, patient states nothing, I just like that it calms my nerves, it helps me relax. No distress observed or reported. Denies pain. PRN Ativan administered per patient request. Denies further requests. Call light in reach.
[2022-09-08] MEDS: traMADol 50 MG Tablet PO (22:46)
[2022-09-09] MEDS: Pantoprazole Sodium 20 MG Tablet PO (05:33)
[2022-09-09] MEDS: Polyethylene Glycol 3350 17 GM PACKET PO (05:33)
[2022-09-09] MEDS: Senna/Docusate Sodium 1 Tablet 2 TABLET PO ×2 (05:33→17:00)
[2022-09-09] MEDS: traMADol 50 MG Tablet PO (05:40)
[2022-09-09] MEDS: amLODIPine 5 MG Tablet PO (08:14)
[2022-09-09 15:44] VITALS: BP 129/63; PULSE 89; RESP 16; TEMP 36.6; O2SAT 96
[2022-09-09] MEDS: Rivaroxaban 20 MG Tablet PO (17:00)
[2022-09-09] MEDS: Doxazosin 1 MG Tablet PO (20:56)
[2022-09-09 21:32] VITALS: RESP 16; O2SAT 95
[2022-09-10] MEDS: traMADol 50 MG Tablet PO (00:08)
[2022-09-10] MEDS: MEGESTROL ACETATE 20 MG TABLET PO ×2 (00:18→21:29)
[2022-09-10] MEDS: Senna/Docusate Sodium 1 Tablet 2 TABLET PO ×2 (04:55→16:43)
[2022-09-10] MEDS: Pantoprazole Sodium 20 MG Tablet PO (04:56)
[2022-09-10] MEDS: Polyethylene Glycol 3350 17 GM PACKET PO (04:56)
[2022-09-10 08:34] VITALS: BP 140/65; PULSE 73
[2022-09-10] MEDS: amLODIPine 5 MG Tablet PO (08:36)
[2022-09-10] MEDS: Scopolamine 1mg/72hr Patch 1 PATCH TD (10:27)
[2022-09-10] MEDS: oxyCODONE 5 MG Tablet 10 MG PO (10:39)
--- NOTE | 2022-09-10 12:23 | NURSING ---
Addendum entered by Roxy Benson 09/10/22 14:20: brought vaccination card, patient is up to date. Updated in chart. Original Note: Offered Covid booster. Per patient he already had it, he will have bring in vaccine card so records can be updated.
--- NOTE | 2022-09-10 13:06 | NS ---
Provided written copy of first choice/daily specials menu w/ instructions on how to order. Food dislikes: none / likes about everything.
[2022-09-10 14:52] VITALS: BP 125/59; PULSE 71; RESP 16; TEMP 36.6; O2SAT 96
[2022-09-10] MEDS: Rivaroxaban 20 MG Tablet PO (16:43)
[2022-09-10] MEDS: LORazepam 0.5 MG Tablet PO (21:30)
[2022-09-10] MEDS: Doxazosin 1 MG Tablet PO (21:32)
[2022-09-11] MEDS: Polyethylene Glycol 3350 17 GM PACKET PO (06:12)
[2022-09-11] MEDS: Pantoprazole Sodium 20 MG Tablet PO (06:12)
[2022-09-11] MEDS: Senna/Docusate Sodium 1 Tablet 2 TABLET PO (06:12)
[2022-09-11] MEDS: traMADol 50 MG Tablet PO (08:37)
[2022-09-11] MEDS: amLODIPine 5 MG Tablet PO (08:39)
[2022-09-11 08:40] VITALS: BP 147/56; PULSE 77
[2022-09-11 10:37] VITALS: BMI 30.3
[2022-09-11 14:58] VITALS: BP 139/65; PULSE 75; RESP 17; TEMP 36.8; O2SAT 95
[2022-09-11] MEDS: Rivaroxaban 20 MG Tablet PO (17:31)
[2022-09-11] MEDS: MEGESTROL ACETATE 20 MG TABLET PO (17:31)
[2022-09-11 20:00] VITALS: PULSE 73; RESP 16; O2SAT 97
[2022-09-11] MEDS: Doxazosin 1 MG Tablet PO (21:15)
[2022-09-12] MEDS: Senna/Docusate Sodium 1 Tablet 2 TABLET PO (05:08)
[2022-09-12] MEDS: Pantoprazole Sodium 20 MG Tablet PO (05:08)
[2022-09-12 09:10] VITALS: BP 147/72; PULSE 102
[2022-09-12] MEDS: amLODIPine 5 MG Tablet PO (09:10)
[2022-09-12] MEDS: MEGESTROL ACETATE 20 MG TABLET PO ×2 (09:10→20:53)
[2022-09-12 09:17] VITALS: O2SAT 97
--- NOTE | 2022-09-12 13:30 | CASEMGMT ---
Social Work IDT met with patient and for care plan meeting. Discussed patient's progress in PT/OT/SN. Educated to Medicare benefit. Encouraged to contact secondary insurance to ensure copay coverage. Pt is progressing well. Offered to set DC date when ready. states she has vertigo and can minimally provide assistance. PT schedule therapy training and a car tx with and pt on 09/14. Pt has f/u appt with Dr on 09/17 and will transport if car tx goes well. SW and family to follow up after appt and discuss DC plans further. All in agreement. SW to continue to follow. Lety Davila, MAVERICK MD SENIOR RESEARCH SCIENTIST
[2022-09-12 14:06] VITALS: BP 134/60; PULSE 77; RESP 16; TEMP 36.6; O2SAT 95
--- NOTE | 2022-09-12 15:06 | CASEMGMT ---
Social Work BIMS () and PHQ-9 () completed for MDS assessment. Lety Davila MSW SUPERVISOR INSPECTION ROOM
[2022-09-12] MEDS: Rivaroxaban 20 MG Tablet PO (17:47)
[2022-09-12] MEDS: Doxazosin 1 MG Tablet PO (20:53)
[2022-09-12 22:00] VITALS: PULSE 71; RESP 16; O2SAT 98
[2022-09-13] MEDS: Pantoprazole Sodium 20 MG Tablet PO (04:53)
[2022-09-13] MEDS: amLODIPine 5 MG Tablet PO (08:00)
[2022-09-13] MEDS: Scopolamine 1mg/72hr Patch 1 PATCH TD (08:01)
[2022-09-13 08:03] VITALS: BP 133/58; PULSE 83
--- NOTE | 2022-09-13 08:30 | NURSING ---
Addendum entered by Rosmery López 09/13/22 13:49: No more epistaxis this far in shift. Original Note: pt had a epistaxis this AM LT nare. Pt used kleenex to hold pressure, ice jennifer given. stopped for time being. pt getting ready for shower. will update dr jeffers. pt is on blood thinner xarelto. pt states he never gets nose bleeds.
--- NOTE | 2022-09-13 11:58 | MDS.RN ---
MDS pain interview for BELLA 09/13/22 completed.
[2022-09-13 14:04] VITALS: BP 123/63; PULSE 80; RESP 18; TEMP 36.7; O2SAT 96
[2022-09-13] MEDS: Rivaroxaban 20 MG Tablet PO (18:06)
[2022-09-13] MEDS: MEGESTROL ACETATE 20 MG TABLET PO (18:08)
[2022-09-13 21:00] VITALS: PULSE 70; RESP 14; O2SAT 98
[2022-09-13] MEDS: Doxazosin 1 MG Tablet PO (21:14)
[2022-09-14 06:01] LABS: Absolute Neutrophil Count 4.9 X10^3/uL (2.0-7.7); Basophil# 0.04 X10^3/uL; Basophil% 0.5 % (0-1); Eosinophil# 0.43 X10^3/uL; Eosinophils% 5.8 % (0-5); Hematocrit 32.6 % (40-54); Hemoglobin 10.4 g/dL (13.0-16.5); Lymphocyte % 17.5 % (19-41); Mean Corp Hgb Conc 31.9 g/dL (32-36); Mean Corpuscular Hgb 31.3 pg (27.0-32.0); Mean Corpuscular Volume 98.2 fL (80-94); Mean Platelet Vol. 8.5 fl (6.2-12.0); Monocyte# 0.63 X10^3/uL; Monocyte% 8.5 % (0-10); NRBC Flagged by Analyzer 0 % (0-5); Neutrophil # 4.94 X10^3/uL (2.7-7.7); Neutrophil % 66.4 % (47-70); Platelet Count 222 K/mm3 (150-450); RBC Distribution Width SD 46.5 fl (35.1-43.9); Red Blood Count 3.32 M/mm3 (4.6-6.2); White Blood Count 7.4 K/mm3 (4.4-11.0)
[2022-09-14 06:21] LABS: Anion Gap 3 (5-15); BUN 20 mg/dL (7-18); Calcium,Total 8.4 mg/dL (8.5-10.1); Chloride 113 mmol/L (98-107); EST Glomerular Filtration Rate 77 mL/min (>60); Est Glom Filt Rate - Afr Amer 93 mL/min (>60); Estimated Creatinine Clearance 63.88 ml/min; Glucose 100 mg/dL (74-106); Potassium 3.7 mmol/L (3.5-5.1); Sodium Level 139 mmol/L (136-145)
[2022-09-14] MEDS: Pantoprazole Sodium 20 MG Tablet PO (06:23)
[2022-09-14 09:19] VITALS: BP 131/53; PULSE 60
[2022-09-14] MEDS: MEGESTROL ACETATE 20 MG TABLET PO ×2 (09:20→20:27)
[2022-09-14] MEDS: amLODIPine 5 MG Tablet PO (09:20)
[2022-09-14] MEDS: Tuberculin,Purif.prot.deriv. 50 TU/ML Vial 0.1 ML ID (09:28)
[2022-09-14 15:39] VITALS: BP 123/69; PULSE 75; RESP 16; TEMP 36.8; O2SAT 95
[2022-09-14] MEDS: Rivaroxaban 20 MG Tablet PO (17:43)
[2022-09-14] MEDS: Doxazosin 1 MG Tablet PO (20:27)
[2022-09-14 20:30] VITALS: BP 122/61; PULSE 63; RESP 16
[2022-09-15] MEDS: Pantoprazole Sodium 20 MG Tablet PO (06:28)
[2022-09-15] MEDS: amLODIPine 5 MG Tablet PO (08:23)
[2022-09-15] MEDS: MEGESTROL ACETATE 20 MG TABLET PO ×2 (08:24→16:58)
[2022-09-15 15:39] VITALS: BP 132/61; PULSE 79; RESP 16; TEMP 36.4; O2SAT 97
[2022-09-15] MEDS: Rivaroxaban 20 MG Tablet PO (16:58)
[2022-09-15] MEDS: LORazepam 0.5 MG Tablet PO (22:19)
[2022-09-15] MEDS: Doxazosin 1 MG Tablet PO (22:19)
[2022-09-15 23:00] VITALS: PULSE 67; RESP 16; O2SAT 98
[2022-09-16] MEDS: MEGESTROL ACETATE 20 MG TABLET PO ×2 (06:16→17:16)
[2022-09-16] MEDS: Pantoprazole Sodium 20 MG Tablet PO (06:16)
[2022-09-16] MEDS: Scopolamine 1mg/72hr Patch 1 PATCH TD (08:08)
[2022-09-16] MEDS: amLODIPine 5 MG Tablet PO (08:08)
[2022-09-16 15:35] VITALS: BP 133/58; PULSE 69; RESP 14; TEMP 36.7; O2SAT 96
[2022-09-16] MEDS: Senna/Docusate Sodium 1 Tablet 2 TABLET PO (17:16)
[2022-09-16] MEDS: Rivaroxaban 20 MG Tablet PO (17:17)
[2022-09-16] MEDS: Doxazosin 1 MG Tablet PO (21:38)
[2022-09-16] MEDS: LORazepam 0.5 MG Tablet PO (21:38)
[2022-09-17] MEDS: Pantoprazole Sodium 20 MG Tablet PO (05:55)
[2022-09-17] MEDS: MEGESTROL ACETATE 20 MG TABLET PO ×2 (05:55→17:27)
[2022-09-17] MEDS: amLODIPine 5 MG Tablet PO (08:34)
--- NOTE | 2022-09-17 14:56 | CASEMGMT ---
Social Work Pt returned from appt and requesting to set DC date for 09/19. IDT agreeable. SW spoke with pt and in room to finalize DC plans. recommended continued therapy. Pt requesting [facility] [place] for PT. COLTON faxed referral for PT. No DME needs. to transport 1400. BIMS () and PHQ-9 () completed for MDS assessment. Plan: DC home with 09/19, [facility] in [place] PT MAVERICK CarsonW
[2022-09-17 16:00] VITALS: BP 126/53; PULSE 65; RESP 15; TEMP 36.9; O2SAT 97
[2022-09-17] MEDS: Rivaroxaban 20 MG Tablet PO (17:27)
--- NOTE | 2022-09-17 19:00 | PCM.DC.SUM ---
Providers Date of Admission: 09/06/22 Primary Care Physician: Dr. Jermaine Carpio, DO Reason For Visit: LEFT TOTAL HIP Diagnosis Discharge Diagnosis (1) Debility: Status: Acute Code(s): R53.81 - Other malaise (2) S/P total left hip arthroplasty: Status: Acute Code(s): Z96.642 - Presence of left artificial hip joint (3) Osteoarthritis of hip: Status: Resolved Code(s): M16.9 - Osteoarthritis of hip, unspecified (4) Prostate cancer: Status: Acute Code(s): C61 - Malignant neoplasm of prostate (5) Hypertension: Status: Chronic Code(s): I10 - Essential (primary) hypertension (6) BPH (benign prostatic hyperplasia): Status: Acute Code(s): N40.0 - Benign prostatic hyperplasia without lower urinary tract symptoms (7) GERD (gastroesophageal reflux disease): Status: Acute Code(s): K21.9 - Gastro-esophageal reflux disease without esophagitis (8) Depression: Status: Acute Code(s): F32.A - Depression, unspecified (9) History of DVT (deep vein thrombosis): Status: Acute Code(s): Z86.718 - Personal history of other venous thrombosis and embolism (10) History of pulmonary embolism: Status: Acute Code(s): Z86.711 - Personal history of pulmonary embolism Plan 77 year old male with below past medical history hospitalized for left total hip arthroplasty 09/04/[address] Magaña, admitted to TCU with debility, here for rehabilitation, strengthening, prior to discharge home with . Debility - PT/OT. Pain - Tylenol 1000mg q8h, Oxycodone 5-10mg q4h prn. Bowel - Miralax 17gm daily, senna/colace 2 tablets bid, MOM 30ml po x 1 prn. Adult immunization - Administer pneumonia vaccine, covid19 vaccine, flu vaccine as appropriate. DVT prophylaxis - on Xarelto. Hypertension - Amlodipine 5mg daily. BPH - Doxazosin 1mg qhs. Prostate cancer status post surgery, radiation chemotherapy - Megace 20mg bid. GERD - Pantoprazole 20mg daily. History of DVT/PE - Xarelto 20mg daily. Nausea - Scopolamine 1mg patch TD q72h. Medications at Discharge Home Medications amlodipine 5 mg tablet 5 mg PO DAILY BP 07/11/22 cholecalciferol (vitamin D3) 10 mcg (400 unit) capsule 10 mcg PO DAILY Check with primary doctor 07/11/22 doxazosin 1 mg tablet (Cardura) 1 mg PO DAILY BPH 07/11/22 omeprazole 10 mg capsule,delayed release 10 mg PO DAILY Check with primary doctor 07/11/22 megestrol 20 mg tablet 20 mg PO BID hormone 08/22/22 rivaroxaban 20 mg tablet (Xarelto) 20 mg PO DAILY blood clots 09/04/22 scopolamine base 1 mg over 3 days transdermal patch 1 patch transdermal Q3D@1000 #0 ea 09/17/22 Hospital Course Operations total hip replacement (Left.) Procedures None Summary of Care Provided Minutes Spent on Discharge: 35 Hospital Course: 77 year old male with below past medical history hospitalized for left total hip arthroplasty 09/04/[address] Magaña, admitted to TCU with debility, here for rehabilitation, strengthening, prior to discharge home with . Discharge home with 09/19/2022, [facility]. Physical Exam Const alert General Appearance: cooperative HEENT normocephalic Eyes PERRL and EOMs intact bilaterally Neck supple, no JVD and no carotid bruits Resp normal respiratory effort, normal air movement and clear to auscultation bilaterally Cardio regular rate and regular rhythm GI normal to inspection, nondistended, normoactive bowel sounds, non-tender and non-distended Extremity normal capillary refill General Extremity: Negative for edema Skin no rashes or lesions noted General Skin Exam: no breakdown Psych affect normal Appearance: appropriate Weight / BMI Weight Weight: 95.799 kg Body Mass Index (BMI) 30.3 ABG / Lab / Microbiology Data Result Diagrams: 09/14/22 05:37 09/14/22 05:37 Microbiology: Microbiology 09/10/22 05:00 Nasal Secretion SARS-CoV-2 Antigen (Rapid) - Final 09/08/22 05:00 Nasal Secretion SARS-CoV-2 Antigen (Rapid) - Final D/C Instructions Discharge Diet: No restrictions Discharge Activity: Return to Normal Activity, May Shower and Use Walker Weight Bearing Status: Weight bearing as tolerated Call your doctor if you observe: Fever of 101 or Higher, Inability to urinate, Inability to have a bowel movement, Shortness of breath, Dizziness, Fainting spells, Swelling in the ankles, Chest pain and Uncontrolled pain Additional Instructions: Discharge home with 09/19/2022, [facility]. Please Follow Up With: Tony Magaña DO When: As scheduled. Meaningful Use Info Meaningful Use Diagnoses (Choose all that apply): None applicable Discharge Plan Admission Admit Date/Time: 09/06/22 16:00 Primary Reason for Your Visit: Debility. Attending Provider: Mike Frost Chi Primary Care Provider: Jermaine Carpio Instructions Additional Instructions / Restrictions: Discharge home with 09/19/2022, [facility]. Discharge Orders/Prescriptions Prescriptions: New scopolamine base 1 mg over 3 days Patch 3 Day 1 patch transdermal Q3D@1000 Qty: 0 0RF Continued amlodipine 5 mg tablet 5 mg PO DAILY doxazosin [Cardura] 1 mg tablet 1 mg PO DAILY omeprazole 10 mg capsule,delayed release(DR/EC) 10 mg PO DAILY cholecalciferol (vitamin D3) 10 mcg (400 unit) capsule 10 mcg PO DAILY megestrol 20 mg tablet 20 mg PO BID Label Comments: TAKE 1 TABLET BY MOUTH TWICE A DAY Xarelto 20 mg tablet 20 mg PO DAILY Label Comments: TAKE 1 TABLET BY MOUTH EVERY DAY WITH DINNER Discontinued oxycodone 5 mg tablet 5 - 10 mg PO Q4H PRN (Reason: pain) 7 Days Qty: 50 0RF Rx Instructions: pain scale 4-6: 5mg pain scale 7-10: 10mg acetaminophen 500 mg tablet 1,000 mg PO Q6H PRN (Reason: pain) Qty: 60 0RF Referrals / Follow Up: Jermaine Carpio DO [Primary Care Provider] - ( said she will make this appointment) Disposition Disposition (needs filled in before D/C Order can be placed): Home, Self Care
[2022-09-17 21:00] VITALS: BP 122/62; PULSE 72; RESP 16
[2022-09-17] MEDS: LORazepam 0.5 MG Tablet PO (21:05)
[2022-09-17] MEDS: Doxazosin 1 MG Tablet PO (21:06)
[2022-09-17 22:00] VITALS: PULSE 72; RESP 14; O2SAT 98
[2022-09-18] MEDS: Pantoprazole Sodium 20 MG Tablet PO (06:03)
[2022-09-18 07:56] VITALS: BP 125/60; PULSE 83
[2022-09-18] MEDS: amLODIPine 5 MG Tablet PO (07:57)
[2022-09-18] MEDS: MEGESTROL ACETATE 20 MG TABLET PO ×2 (07:58→17:04)
[2022-09-18 09:27] VITALS: BMI 30.1
[2022-09-18 09:30] VITALS: PULSE 78; O2SAT 98
--- NOTE | 2022-09-18 11:04 | NURSING ---
Call placed to Dr. Carpio in [place] to complete vacation HX. Dates received and entered.
[2022-09-18 14:03] VITALS: BP 120/61; PULSE 72; RESP 18; TEMP 36; O2SAT 96
[2022-09-18] MEDS: Rivaroxaban 20 MG Tablet PO (17:04)
[2022-09-18] MEDS: LORazepam 0.5 MG Tablet PO (21:35)
[2022-09-18] MEDS: Doxazosin 1 MG Tablet PO (21:35)
[2022-09-19] MEDS: Pantoprazole Sodium 20 MG Tablet PO (05:17)
--- NOTE | 2022-09-19 07:44 | MDS.RN ---
Information for the mds was obtained from review of the clinical record, interview of resident, staff, and direct observation of resident's care.
[2022-09-19] MEDS: amLODIPine 5 MG Tablet PO (08:08)
[2022-09-19 08:09] VITALS: BP 129/64; PULSE 74
[2022-09-19] MEDS: MEGESTROL ACETATE 20 MG TABLET PO (09:28)
[2022-09-19] MEDS: Scopolamine 1mg/72hr Patch 1 PATCH TD (09:28)
[2022-09-19 09:48] VITALS: PULSE 67; RESP 16; O2SAT 98
[2022-09-19 13:35] VITALS: BP 119/53; PULSE 75; RESP 18; TEMP 36.1; O2SAT 97
== END 2022-09-19 14:31 | disposition home or self-care (01) | DRG 561 ==
PROVIDERS: Admitting Provider Family Medicine Geriatric Medicine; PCP Family Medicine; Visit Provider Family Medicine Geriatric Medicine
DX: Z47.1 Aftercare following joint replacement surgery (principal); C61 Malignant neoplasm of prostate; I10 Essential (primary) hypertension; K21.9 Gastro-esophageal reflux disease without esophagitis; M16.10 Unilateral primary osteoarthritis, unspecified hip; N40.0 Benign prostatic hyperplasia without lower urinary tract symptoms; Z79.899 Other long term (current) drug therapy; Z86.718 Personal history of other venous thrombosis and embolism; Z79.01 Long term (current) use of anticoagulants; Z86.711 Personal history of pulmonary embolism; Z96.642 Presence of left artificial hip joint
CPT/HCPCS: 36415; 80048; 85025; 87426; 87811; 97110; 97116; 97162; 97166; 97530; 97535; 97802

== ENCOUNTER 2022-12-15 01:00 | Emergency (ER) | payer OTHER, SELFPAY ==
[2022-12-15 01:01] VITALS: BP 172/69; PULSE 63; RESP 16; TEMP 36.4; O2SAT 97; BMI 31.7
--- NOTE | 2022-12-15 01:28 | ED.VIS.LOWEX ---
HPI History of Present Illness Chief Complaint: Lower Extremity Injury Informant: patient Narrative Narrative: Patient presents with over 3 weeks of aching pain in both legs. No back pain, no numbness, no joint pains, no swelling no rashes. No fevers or chills. States he saw his doctor about this, was put on some basically electrolyte replacement, medications, nothing is helped. He presents at 1 in the morning to the ER kong, saying nothing is different but he had trouble sleeping and was tired of it. PFSH PFSH Medical History Arthritis DVT (deep venous thrombosis) GERD (gastroesophageal reflux disease) History of chemotherapy History of prostate cancer Hx of blood clots Hx of radiation therapy Non-smoker Home Medications amlodipine 5 mg tablet 5 mg PO DAILY BP 07/11/22 [History Last Taken 09/03/22] cholecalciferol (vitamin D3) 10 mcg (400 unit) capsule 10 mcg PO DAILY Check with primary doctor 07/11/22 [History Last Taken 09/03/22] doxazosin 1 mg tablet (Cardura) 1 mg PO DAILY BPH 07/11/22 [History Last Taken 09/03/22] omeprazole 10 mg capsule,delayed release 10 mg PO DAILY Check with primary doctor 07/11/22 [History Last Taken 09/03/22] megestrol 20 mg tablet 20 mg PO BID hormone 08/22/22 [History Last Taken 09/03/22] rivaroxaban 20 mg tablet (Xarelto) 20 mg PO DAILY blood clots 09/04/22 [History Last Taken 09/01/22 18:00] scopolamine base 1 mg over 3 days transdermal patch 1 patch transdermal Q3D@1000 #0 ea 09/17/22 [Rx Last Taken Unknown] amoxicillin 500 mg tablet 2,000 mg (4 x 500 mg) PO ONCE #4 tabs 11/26/22 [Rx Last Taken Unknown] Allergy/AdvReac Type Severity Reaction Status Date / Time acetaminophen [From Percocet] Allergy Other Verified 09/04/22 09:05 hydrocodone [From Vicodin] Allergy Other Verified 09/04/22 09:05 morphine Allergy Other Verified 09/04/22 09:05 oxycodone [From Percocet] Allergy Other Verified 09/04/22 09:05 Surgical History History of total left hip arthroplasty Hx of prostatectomy Social History household members: spouse Smoking Status: Never smoker alcohol intake: never substance use type: does not use ROS ROS ED Constitutional Constitutional ED: Denies chills or fever(s) Musculoskeletal Musculoskeletal: Reports extremity pain; Denies neck pain Integumentary Denies Abrasions, rash or wounds Neurologic Neurologic: Denies paresthesias or weakness EXAM Physical Exam Const Vital Signs: 12/15/22 01:01 Temperature 97.6 F L Temperature Source Oral Pulse Rate 63 Respiratory Rate 16 Blood Pressure 172/69 H Blood Pressure Mean 103 Pulse Ox 97 Oxygen Delivery Method Room Air Positive well nourished and well developed General Appearance ED: well developed and NAD Neck full ROM and supple Back/Spine normal ROM and normal to inspection Extremity normal to inspection Extremity Narrative: nontender. soft compartments throughout BLE. FROM throughout. NVID BLE. No rashes. no palpable cords. Neuro oriented x3, no focal motor deficits and no sensory deficits noted Sensorium / Orientation: alert Psych mental status grossly normal and thought process normal Skin no wounds Rashes: no rashes MDM MDM MDM Narrative Medical decision making narrative: Labs are all normal. This includes electrolytes, magnesium, CPK. He was a little prerenal I gave him IV fluids while we were awaiting these labs, he states that actually feels a little better there. I asked if he could be chronically dehydrated he states he drank a lot of water today but otherwise he really does not know. He is neurovascular intact distally does not have cauda equina syndrome, he does not appear to have any compartment syndrome or signs or symptoms of a DVT, he is anticoagulated and I see no reason to do any other emergent tests or admit him to the hospital. He is reassured, he is offered analgesics, he declines tramadol or any narcotics, since he is anticoagulated I cannot safely give NSAIDs, he states he is okay going home and taking Tylenol and following up with his doctor after the weekend. Lab Data Attestation: I reviewed the patient's lab results. Labs: Laboratory Results - last 24 hr 12/15/22 01:40 WBC 6.6 RBC 4.40 L Hgb 13.6 Hct 41.6 MCV 94.5 H MCH 30.9 MCHC 32.7 RDW Std Deviation 44.6 H RDW Coeff of Angelica 13.0 Plt Count 138 L MPV 9.2 Immature Gran % (Auto) 0.600 Neut % (Auto) 68.3 Lymph % (Auto) 14.5 L [place] % (Auto) 9.2 Eos % (Auto) 6.6 H Baso % (Auto) 0.8 Absolute Neuts (auto) 4.5 Absolute Lymphs (auto) 0.96 Nucleated RBC % 0 Sodium 141 Potassium 3.8 Chloride 111 H Carbon Dioxide 24.0 Anion Gap 6 BUN 22 H Creatinine 1.26 Estim Creat Clear Calc 50.69 Est GFR (MDRD) Af Amer 71 Est GFR (MDRD) Non-Af 59 L BUN/Creatinine Ratio 17.5 Glucose 103 Calcium 9.0 Magnesium 2.2 Total Creatine Kinase 70 Discharge Plan Triage Chief Complaint: Lower Extremity Injury ED Provider: Yair Pace Dx/Rx/DC Orders Clinical Impression: Bilateral lower extremity pain Instructions: ED Myalgias Prescriptions: No Action amlodipine 5 mg tablet 5 mg PO DAILY doxazosin [Cardura] 1 mg tablet 1 mg PO DAILY omeprazole 10 mg capsule,delayed release(DR/EC) 10 mg PO DAILY cholecalciferol (vitamin D3) 10 mcg (400 unit) capsule 10 mcg PO DAILY megestrol 20 mg tablet 20 mg PO BID Patient Comments: TAKE 1 TABLET BY MOUTH TWICE A DAY Xarelto 20 mg tablet 20 mg PO DAILY Patient Comments: TAKE 1 TABLET BY MOUTH EVERY DAY WITH DINNER scopolamine base 1 mg over 3 days Patch 3 Day 1 patch transdermal Q3D@1000 Qty: 0 0RF amoxicillin 500 mg tablet 2,000 mg PO ONCE Qty: 4 0RF Rx Instructions: take 4 tabs within 1 hr prior to dental procedure. Primary Care Provider: Jermaine Carpio Referrals: Jermaine Carpio, DO [Primary Care Provider] - (Next week call for appointment)
[2022-12-15 01:46] LABS: Absolute Lymphocyte Count 0.96 X10^3/uL (0.83-4.51); Absolute Neutrophil Count 4.5 X10^3/uL (2.0-7.7); Basophil# 0.05 X10^3/uL; Basophil% 0.8 % (0-1); Eosinophil# 0.44 X10^3/uL; Eosinophils% 6.6 % (0-5); Hematocrit 41.6 % (40-54); Hemoglobin 13.6 g/dL (13.0-16.5); Lymphocyte # 0.96 X10^3/ul (0.83-4.51); Lymphocyte % 14.5 % (19-41); Mean Corp Hgb Conc 32.7 g/dL (32-36); Mean Corpuscular Hgb 30.9 pg (27.0-32.0); Mean Corpuscular Volume 94.5 fL (80-94); Mean Platelet Vol. 9.2 fl (6.2-12.0); Monocyte# 0.61 X10^3/uL; Monocyte% 9.2 % (0-10); NRBC Flagged by Analyzer 0 % (0-5); Neutrophil # 4.53 X10^3/uL (2.7-7.7); Neutrophil % 68.3 % (47-70); Platelet Count 138 K/mm3 (150-450); RBC Distribution Width SD 44.6 fl (35.1-43.9); White Blood Count 6.6 K/mm3 (4.4-11.0)
[2022-12-15 02:07] LABS: Anion Gap 6 (5-15); BUN 22 mg/dL (7-18); BUN/Creat Ratio 17.5 RATIO (10-20); CPK Total, Creatine Kinase 70 U/L (39-308); Chloride 111 mmol/L (98-107); Creatinine, Serum 1.26 mg/dL (0.70-1.30); EST Glomerular Filtration Rate 59 mL/min (>60); Est Glom Filt Rate - Afr Amer 71 mL/min (>60); Estimated Creatinine Clearance 50.69 ml/min; Glucose 103 mg/dL (74-106); Magnesium 2.2 mg/dL (1.6-2.6); Potassium 3.8 mmol/L (3.5-5.1); Sodium Level 141 mmol/L (136-145)
[2022-12-15 02:51] VITALS: BP 128/74; RESP 16
== END 2022-12-15 02:52 | disposition home or self-care (01) ==
PROVIDERS: Emergency Provider Emergency Medicine; PCP Family Medicine; Visit Provider Emergency Medicine
DX: M79.604 Pain in right leg (principal); M79.605 Pain in left leg; Z86.718 Personal history of other venous thrombosis and embolism
CPT/HCPCS: 80048; 82550; 83735; 85025; 99282; J7030; A4216

== ENCOUNTER 2024-09-03 04:27 | Emergency (ER) | payer MEDICARE, OTHER, SELFPAY ==
[2024-09-03 04:27] VITALS: BP 149/74; PULSE 74; RESP 16; TEMP 36.4; O2SAT 96; BMI 28.2
--- NOTE | 2024-09-03 04:56 | CT_ITS ---
PROCEDURE: ABDOMEN/PELVIS W IV CONT ONLY 09/03/2024 REASON FOR EXAM: LOWER ABD PAIN. TECHNIQUE: Abdomen and pelvis CT with intravenous contrast. Coronal and Sagittal reconstruction series were provided. PATIENT PREPARATION: Per protocol ORAL CONTRAST TYPE: None. CONTRAST: VOLUME: 100 mL Isovue-350 gauge IV One or more dose reduction techniques were used (e.g., Automated exposure control, adjustment of the mA and/or kV according to patient size, use of iterative reconstruction technique. RADIATION DOSE SUMMARY: CTDlvol: 28.8 mGy DLP: 1402 mGycm COMPARISON: None. FINDINGS: Diffuse colonic diverticulosis. Moderate amount of fecal residue in the rectosigmoid colon. Associated mild uncomplicated stercoral colitis without perforation or pneumatosis coli. Mild bilateral basilar atelectatic pulmonary changes. Small sliding hiatal hernia. Diffuse thickening of the stomach suggestive of gastritis. A few scattered simple hepatic cysts are noted with the largest measuring 4 mm. No follow-up is needed. Possible gallstone. No CT evidence of acute cholecystitis. Interposition of the colon between the liver and right hemidiaphragm, benign chronic finding. Prior radical prostatectomy. Scattered left renal peripelvic cysts are noted with the largest measuring 3.2 cm. No follow-up is needed. Bilateral fat containing inguinal hernias without incarceration. Unremarkable metallic prosthesis of the left hip. Mild osteopenia. Moderate diffuse spondylosis. 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 Normal extrahepatic biliary system. Normal spleen. Normal pancreas. Normal bilateral adrenal glands. Normal size of the right kidney. There is no right renal mass. There are no right renal calculi. There is no right hydronephrosis. Normal visualized right ureter. Normal size of the left kidney. There is no left renal mass. There are no left renal calculi. There is no left hydronephrosis. Normal visualized left ureter. Normal small intestine. The appendix is visualized and appears normal. There is no demonstrated peritoneal fluid. Mild atheromatous plaques of the abdominal aorta. Normal inferior vena cava. Normal retroperitoneum. Normal urinary bladder. There is no pelvic mass lesion or lymphadenopathy. There is no pelvic fluid. CT/Abdomen/Pelvis W IV Cont ONLY IMPRESSION: 1. Diffuse colonic diverticulosis. 2. Moderate amount of fecal residue in the rectosigmoid colon. Associated mild stercoral colitis without perforation or pneumatosis coli. 3. Mild bilateral basilar atelectatic pulmonary changes. 4. Small sliding hiatal hernia. 5. Diffuse thickening of the stomach suggestive of gastritis. 6. A few scattered simple hepatic cysts are noted with the largest measuring 4 mm. No follow-up is needed. 7. Possible gallstone. 8. No CT evidence of acute cholecystitis. 9. Interposition of the colon between the liver and right hemidiaphragm, benign chronic finding. 10. Prior radical prostatectomy. 11. Scattered left renal peripelvic cysts are noted with the largest measuring 3.2 cm. No follow-up is needed. 12. Bilateral fat containing inguinal hernias without incarceration. 13. Unremarkable metallic prosthesis of the left hip. 14. Mild osteopenia. 15. Moderate diffuse spondylosis. 16. Grade 2 anterolisthesis of L5 on S1 secondary to bilateral pars defects, ch ronic finding. Reading [facility]
--- NOTE | 2024-09-03 04:57 | ED.VIS.GI ---
HPI HPI - GI History of Present Illness Chief Complaint: Abd Pain Informant: patient Narrative Narrative: Patient 79-year-old male with history of BPH, GERD, hypertension due to recent jaw surgery presenting with lower abdominal pain. Patient states that about 4 weeks ago he had a fracture of his jaw and a pin placed. It became infected and he has been on antibiotics (Bactrim and Flagyl). This was performed at with Dr. Marcos. He notes that around 9 PM today he started to have lower abdominal pain. He himself an enema and had a good bowel movement. He states he felt a lot better. He woke up around 3 AM and the pain returned. Did not go away this time and he came in for further evaluation. He notes since his surgery he has had constipation. Notes his bowel movements have been like marbles and hard. Denies any blood in the stool. Denies any fevers. Does have some occasional nausea for which he has nausea medicine for but denies any vomiting. Has never had any pain like this before. Denies any radiation of the pain. Denies any prior abdominal surgeries. States he had a colonoscopy about 5 years ago and there was a polyp but otherwise denies any acute abnormalities. Does report that he has frequent urination at night and out but this was going on even before the surgery. He states his doctor had prescribed him tamsulosin but he did stop taking it. Denies any dysuria. No other complaints or concerns reported at this time. [facility] Medical History Arthritis History of prostate cancer DVT (deep venous thrombosis) GERD (gastroesophageal reflux disease) Non-smoker Hx of blood clots Hx of radiation therapy History of chemotherapy Home Medications ?Medication ?Instructions ?Recorded ?Last Taken ?Type amlodipine 5 mg tablet 5 mg PO DAILY BP 07/11/22 09/03/22 History cholecalciferol (vitamin D3) 10 10 mcg PO DAILY Check with primary 07/11/22 09/03/22 History mcg (400 unit) capsule doctor doxazosin 1 mg tablet (Cardura) 1 mg PO DAILY BPH 07/11/22 09/03/22 History omeprazole 10 mg capsule,delayed 10 mg PO DAILY Check with primary 07/11/22 09/03/22 History release doctor rivaroxaban 20 mg tablet (Xarelto) 20 mg PO DAILY blood clots 09/04/22 09/01/22 18:00 History metronidazole 500 mg tablet 500 mg PO TID 09/03/24 Unknown History polyethylene glycol 3350 17 17 g PO DAILY #119 grams 09/03/24 Unknown Rx gram/dose oral powder (LaxaClear) sulfamethoxazole 800 1 tab PO BID 09/03/24 Unknown History mg-trimethoprim 160 mg tablet Allergy/AdvReac Type Severity Reaction Status Date / Time acetaminophen (From Percocet) Allergy Other Verified 09/03/24 04:31 hydrocodone (From Vicodin) Allergy Other Verified 09/03/24 04:31 morphine Allergy Other Verified 09/03/24 04:31 oxycodone (From Percocet) Allergy Other Verified 09/03/24 04:31 Surgical History History of total left hip arthroplasty Hx of prostatectomy Social History household members: spouse Smoking Status: Never smoker alcohol intake: never substance use type: does not use ROS ROS ED Constitutional Constitutional ED: Denies chills or fever(s) Cardiovascular Cardiovascular: Denies chest pain Respiratory/Chest Respiratory/Chest: Denies cough Gastrointestinal Gastrointestinal: Reports abdominal pain, constipation and nausea; Denies melena Genitourinary Genitourinary ED: Reports urinary frequency; Denies dysuria or hematuria Integumentary Denies rash Neurologic Neurologic: Denies weakness Hematologic/Lymphatic Hematologic/Lymphatic: Reports easy bleeding, easy bruising and other Details: On Xarelto EXAM Physical Exam Const Vital Signs: 09/03/24 04:27 Temperature 97.6 F L Temperature Source Oral Pulse Rate 74 Respiratory Rate 16 Blood Pressure 149/74 H Blood Pressure Mean 99 Pulse Ox 96 Oxygen Delivery Method Room Air Positive well nourished and well developed General Appearance ED: well developed and NAD; Negative for pallor HEENT Reports moist mucous membranes Resp normal respiratory effort and clear to auscultation bilaterally Cardio regular rate and regular rhythm GI non-tender and non-distended Auscultation: hyperactive bowel sounds Palpation: soft and tender periumbilical and suprapubic; Negative for guarding or rigid Back/Spine no CVA tenderness Extremity full ROM Extremity Narrative: 2+ radial and DP pulses General Extremety ED: Negative for edema General Extremity: Negative for edema Neuro moves all extremities Sensorium / Orientation: alert Motor Exam: Negative for general weakness Psych mental status grossly normal and thought process normal Skin General Skin Exam: Negative for jaundice or pallor MDM MDM MDM Narrative Medical decision making narrative: Patient is evaluated for abdominal pain initially was relieved with an enema but then worsened. Had he is currently on Flagyl and Bactrim for what sounds like a postoperative jaw infection. Patient well-appearing. Vital signs unremarkable. Physical exam relatively benign. He has some mild tenderness in the periumbilical/suprapubic region. Differential includes diverticulitis, constipation, colitis, bladder outlet obstruction and urinary tract infection. CBC and CMP largely unremarkable. Bladder scan obtained does not show any significant urine consistent with retention. CT of the abdomen and pelvis shows moderate mount of fecal residue in his retrosigmoid colon and associated mild stercoral colitis without perforation or pneumatosis coli. There is diffuse colonic diverticulosis with no report of diverticulitis. There is some diffuse thickening of the stomach suggestive of gastritis but no other acute process. Given the report of uncomplicated mild stercoral colitis did discuss with surgery on-call, Dr. Machado. He recommends treating this with bowel regimen and has no further recommendations. Patient is given a soapsuds enema in the emergency room. Will be discharged home with daily MiraLAX. Lab Data Attestation: I reviewed the patient's lab results. Labs: Laboratory Results - last 24 hr 09/03/24 04:38 WBC 7.0 RBC 4.29 L Hgb 14.0 Hct 41.6 MCV 97.0 H MCH 32.6 H MCHC 33.7 RDW Std Deviation 51.3 H RDW Coeff of Angelica 14.4 Plt Count 151 MPV 9.0 Immature Gran % (Auto) 0.700 Neut % (Auto) 78.6 H Lymph % (Auto) 8.9 L [place] % (Auto) 9.2 Eos % (Auto) 2.2 Baso % (Auto) 0.4 Absolute Neuts (auto) 5.5 Absolute Lymphs (auto) 0.62 L Nucleated RBC % 0 Sodium 135 Potassium 4.0 Chloride 102 Carbon Dioxide 21.6 Anion Gap 12 BUN 16 Creatinine 1.14 Estim Creat Clear Calc 59.10 Est GFR (MDRD) Non-Af 65 BUN/Creatinine Ratio 14.3 Glucose 113 H Calcium 9.2 Total Bilirubin 0.41 AST 27 ALT 25 Alkaline Phosphatase 59 Total Protein 6.6 Albumin 4.0 Globulin 2.6 Albumin/Globulin Ratio 1.5 Radiography Diagnostic Testing: Clinical Impression(s) from Imaging Studies Abdomen/Pelvis CT 09/03/24 04:56 IMPRESSION: 1. Diffuse colonic diverticulosis. 2. Moderate amount of fecal residue in the rectosigmoid colon. Associated mild stercoral colitis without perforation or pneumatosis coli. 3. Mild bilateral basilar atelectatic pulmonary changes. 4. Small sliding hiatal hernia. 5. Diffuse thickening of the stomach suggestive of gastritis. 6. A few scattered simple hepatic cysts are noted with the largest measuring 4 mm. No follow-up is needed. 7. Possible gallstone. 8. No CT evidence of acute cholecystitis. 9. Interposition of the colon between the liver and right hemidiaphragm, benign chronic finding. 10. Prior radical prostatectomy. 11. Scattered left renal peripelvic cysts are noted with the largest measuring 3.2 cm. No follow-up is needed. 12. Bilateral fat containing inguinal hernias without incarceration. 13. Unremarkable metallic prosthesis of the left hip. 14. Mild osteopenia. 15. Moderate diffuse spondylosis. 16. 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 Reading Location: [place] [id number] Discharge Plan Triage Chief Complaint: Abd Pain ED Provider: Lizzie Rankin Dx/Rx/DC Orders Clinical Impression: Constipation, Abdominal pain, lower Instructions: ED Constipation (Adult) Prescriptions: New polyethylene glycol 3350 [LaxaClear] 17 gram/dose powder 17 g PO DAILY Qty: 119 0RF No Action amlodipine 5 mg tablet 5 mg PO DAILY doxazosin [Cardura] 1 mg tablet 1 mg PO DAILY omeprazole 10 mg capsule,delayed release(DR/EC) 10 mg PO DAILY cholecalciferol (vitamin D3) 10 mcg (400 unit) capsule 10 mcg PO DAILY Xarelto 20 mg tablet 20 mg PO DAILY Patient Comments: TAKE 1 TABLET BY MOUTH EVERY DAY WITH DINNER metronidazole 500 mg tablet 500 mg PO TID sulfamethoxazole-trimethoprim 800-160 mg tablet 1 tab PO BID Primary Care Provider: Jermaine Carpio Referrals: Jermaine Carpio, DO [Primary Care Provider] - Activity Restrictions/Additional Instructions: Your lab work was largely normal today. Your CT did show finding consistent with significant constipation likely acute on chronic. You are given additional enema in the ER. Please continue taking your antibiotics as prescribed. You have been started on MiraLAX to hopefully help you start to have more regular bowel movements. I also would recommend taking an [id number] fiber supplements and increasing your fluid intake. If you have worsening symptoms please return to the emergency room. Please follow-up with your primary care doctor. Print Language: Nepalese Disposition Disposition: Home, Self Care
[2024-09-03 05:04] LABS: Absolute Lymphocyte Count 0.62 X10^3/uL (0.83-4.51); Absolute Neutrophil Count 5.5 X10^3/uL (2.0-7.7); Basophil# 0.03 X10^3/uL; Basophil% 0.4 % (0-1); Eosinophil# 0.15 X10^3/uL; Eosinophils% 2.2 % (0-5); Hematocrit 41.6 % (40-54); Lymphocyte # 0.62 X10^3/ul (0.83-4.51); Lymphocyte % 8.9 % (19-41); Mean Corp Hgb Conc 33.7 g/dL (32-36); Mean Corpuscular Hgb 32.6 pg (27.0-32.0); Monocyte# 0.64 X10^3/uL; Monocyte% 9.2 % (0-10); NRBC Flagged by Analyzer 0 % (0-5); Neutrophil # 5.47 X10^3/uL (2.7-7.7); Neutrophil % 78.6 % (47-70); Platelet Count 151 K/mm3 (150-450); RBC Distribution Width CV 14.4 % (11.6-14.6); RBC Distribution Width SD 51.3 fl (35.1-43.9); Red Blood Count 4.29 M/mm3 (4.6-6.2)
[2024-09-03 05:21] LABS: ALB/GLOB Ratio 1.5 RATIO (0.9-2.4); AST(SGOT) 27 U/L (<=37); Alanine Aminotransfer ALT/SGPT 25 U/L (<=46); Alkaline Phosphatase 59 U/L (40-129); Anion Gap 12 (5-15); BUN 16 mg/dL (4-19); BUN/Creat Ratio 14.3 RATIO (10-20); Calcium,Total 9.2 mg/dL (7.6-11.0); Carbon Dioxide 21.6 mmol/L (21.0-32.0); Chloride 102 mmol/L (98-108); Creatinine, Serum 1.14 mg/dL (0.70-1.20); EST Glomerular Filtration Rate 65 (>60); Globulin 2.6 g/dL (2.2-4.2); Glucose 113 mg/dL (70-99); Protein, Total 6.6 g/dL (5.9-8.4); Sodium Level 135 mmol/L (133-145); Total Bilirubin 0.41 mg/dL (0.00-1.30)
[2024-09-03 06:01] LABS: Bacteria 0 SEEN /hpf (None Seen); Mucous, Urine 0 SEEN /hpf (<or=2+); Squamous Epithelial Cells - UA 0 SEEN /hpf (0-5)
[2024-09-03 06:21] LABS: Color, Urine Yellow (Yellow); Glucose, Dipstick Normal (Normal); Ketone-Dipstick Negative (Negative); Leukocyte Esterase-Dipstick 25 /ul (Negative); Nitrite-Dipstick Negative (Negative); Occult Blood-Urine 10 /ul (Negative); Urine Bilirubin Dipstick Negative (Negative); Urine Clarity Clear (Clear); Urine Urobilinogen Normal (Normal); Urine pH 6.5 (5.0 - 8.0)
[2024-09-03 06:59] VITALS: BP 141/77; PULSE 71; RESP 17; TEMP 36.8; O2SAT 97
[2024-09-03 10:17] LABS: Red Blood Cells-Urine 0-5 SEEN /hpf (0-5); White Blood Cells 0-5 SEEN /hpf (0-5)
[2024-09-03 10:19] LABS: Protein, Urine (Random) 7.4 mg/dL (0.0-12.0)
== END 2024-09-03 07:00 | disposition home or self-care (01) ==
PROVIDERS: Emergency Provider Emergency Medicine; PCP Family Medicine; Visit Provider Emergency Medicine
DX: K59.00 Constipation, unspecified (principal); K52.89 Other specified noninfective gastroenteritis and colitis; K57.30 Diverticulosis of large intestine without perforation or abscess without bleeding; T81.49XA Infection following a procedure, other surgical site, initial encounter; I10 Essential (primary) hypertension; K21.9 Gastro-esophageal reflux disease without esophagitis; N40.0 Benign prostatic hyperplasia without lower urinary tract symptoms; Z92.3 Personal history of irradiation; Z92.21 Personal history of antineoplastic chemotherapy; Z90.79 Acquired absence of other genital organ(s); Z85.46 Personal history of malignant neoplasm of prostate; Z86.718 Personal history of other venous thrombosis and embolism; Z79.01 Long term (current) use of anticoagulants; Z79.899 Other long term (current) drug therapy
CPT/HCPCS: 74177; 80053; 81001; 84156; 85025; 99284; Q9967; A4216

== ENCOUNTER 2024-09-05 05:21 | Emergency (ER) | payer MEDICARE, OTHER, SELFPAY ==
[2024-09-05 05:22] VITALS: BP 155/74; PULSE 70; RESP 19; TEMP 36.4; O2SAT 99; BMI 27.8
--- NOTE | 2024-09-05 05:53 | CT_ITS ---
PROCEDURE: BRAIN/HEAD WITHOUT CONTRAST 09/05/2024 REASON FOR EXAM: HEAD INJURY TECHNIQUE: Head CT without intravenous contrast. Coronal and Sagittal reconstruction series were provided. One or more dose reduction techniques were used (e.g., Automated exposure control, adjustment of the mA and/or kV according to patient size, use of iterative reconstruction technique. RADIATION DOSE SUMMARY: CTDlvol: 44.99 mGy DLP: 897.35 mGycm COMPARISON: None available FINDINGS: No intracranial hemorrhage, mass effect or calvarial fracture. The ventricles are within limits and midline. Convexity volume loss, atrophy. CT/Brain/Head without Contrast IMPRESSION: No intracranial hemorrhage, mass effect or calvarial fracture. Reading Location: [id number]
--- NOTE | 2024-09-05 05:53 | CT_ITS ---
PROCEDURE: SPINE CERVICAL WITHOUT CONTRAS 09/05/2024 REASON FOR EXAM: PAIN/FALL TECHNIQUE: Cervical spine CT without contrast. Coronal and Sagittal reconstruction series were provided. One or more dose reduction techniques were used (e.g., Automated exposure control, adjustment of the mA and/or kV according to patient size, use of iterative reconstruction technique RADIATION DOSE SUMMARY: CTDlvol: 23.51 mGy DLP: 526.96 mGycm COMPARISON: None available FINDINGS: No fracture or malalignment. No prevertebral soft tissue swelling. Multilevel spondylosis/discogenic change appears greatest at C3-4 and C6-7. Visualized apices are clear. CT/Spine Cervical without Contras IMPRESSION: No fracture or malalignment. Reading Location: [id number]
--- NOTE | 2024-09-05 05:53 | CT_ITS ---
PROCEDURE: SINUS/FACIAL BONE REASON FOR EXAM: INJURY TECHNIQUE: CT of the paranasal sinuses without contrast. Coronal and Sagittal reconstruction series were provided. One or more dose reduction techniques were used (e.g., Automated exposure control, adjustment of the mA and/or kV according to patient size, use of iterative reconstruction technique). COMPARISON: None. FINDINGS: No acute fracture. Right cheek soft tissue swelling. Globes appear intact without retro bulbar stranding. Very mild mucoperiosteal thickening maxillary sinuses. No air-fluid levels. Incidental osteoma right sphenoid sinus. [place] artifact from dental amalgam and fixation hardware. Status post right mandibular ORIF with plate and screws and non osseous united fracture plane, correlate with history. 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 TMJs appear normally located. Mastoids are clear. CT/Sinus/Facial Bone IMPRESSION: No acute fracture. Right cheek soft tissue swelling. Globes appear intact with out retro bulbar stranding. [place] artifact from dental amalgam and fixation hardware. Status post right man dibular ORIF with plate and screws and non osseous united fracture plane, correlate with history. The right mandible lateral inci sor and right canine are missing. Reading Location: [id number]
[2024-09-05 06:22] VITALS: BP 141/68; PULSE 60; RESP 17; O2SAT 95
--- NOTE | 2024-09-05 06:51 | EX.ED.DYSGE1 ---
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 He also states he has been struggling with vertigo. He states that approximately 24 hours ago he was out walking in the morning when he had a bout of dizziness which caused him to lose his balance and he fell face first into a fence. He states he struck his head/face but denies LOC. He states he was able to get up and continue about his day and he noticed he was developing a headache in the evening when she took Tylenol for. He states he was able to fall asleep but woke up with the headache still and therefore I concerned about underlying internal injury because of his trauma and history of blood thinner use and therefore comes in for evaluation. [facility] Medical History Arthritis History of prostate cancer DVT (deep venous thrombosis) GERD (gastroesophageal reflux disease) Non-smoker Hx of blood clots Hx of radiation therapy History of chemotherapy Home Medications ?Medication ?Instructions ?Recorded ?Last Taken ?Type cholecalciferol (vitamin D3) 10 10 mcg PO DAILY Check with primary 07/11/22 09/03/22 History mcg (400 unit) capsule doctor omeprazole 10 mg capsule,delayed 10 mg PO DAILY Check with primary 07/11/22 09/03/22 History release doctor rivaroxaban 20 mg tablet (Xarelto) 20 mg PO DAILY blood clots 09/04/22 09/01/22 18:00 History metronidazole 500 mg tablet 500 mg PO TID 09/03/24 Unknown History sulfamethoxazole 800 1 tab PO BID 09/03/24 Unknown History mg-trimethoprim 160 mg tablet amlodipine 2.5 mg tablet 2.5 mg PO DAILY 09/05/24 Unknown History doxazosin 2 mg tablet 2 mg PO DAILY 09/05/24 Unknown History polyethylene glycol 3350 17 17 g PO DAILY PRN constipation 09/05/24 Unknown History gram/dose oral powder (LaxaClear) Allergy/AdvReac Type Severity Reaction Status Date / Time acetaminophen (From Percocet) Allergy Other Verified 09/05/24 05:22 hydrocodone (From Vicodin) Allergy Other Verified 09/05/24 05:22 morphine Allergy Other Verified 09/05/24 05:22 oxycodone (From Percocet) Allergy Other Verified 09/05/24 05:22 Surgical History History of total left hip arthroplasty Hx of prostatectomy Social History household members: spouse Smoking Status: Never smoker alcohol intake: never substance use type: does not use ROS ROS ED Constitutional Constitutional ED: Denies chills or fever(s) Eyes Eyes: Denies blurry vision or change in vision ENT ENT ED: Denies sore throat Cardiovascular Cardiovascular: Reports other Details: Negative syncope ; Denies chest pain, palpitations or racing heartbeat Respiratory/Chest Respiratory/Chest: Denies cough or dyspnea Gastrointestinal Gastrointestinal: Denies abdominal pain, diarrhea, nausea or vomiting Musculoskeletal Musculoskeletal: Reports neck pain; Denies back pain Integumentary Reports other Details: Positive facial swelling and bruising noted ; Denies rash Neurologic Neurologic: Reports headache(s); Denies paresthesias or weakness Hematologic/Lymphatic Hematologic/Lymphatic: Reports easy bleeding and easy bruising EXAM Physical Exam Const Vital Signs: 09/05/24 05:22 09/05/24 05:22 09/05/24 06:22 Temperature 97.6 F L Temperature Source Oral Pulse Rate 70 60 Respiratory Rate 19 H 17 Respiratory Effort Normal Non-Labored Respiratory Depth Normal Respiratory Pattern Normal Blood Pressure 155/74 H 141/68 H Blood Pressure Mean 101 92 Pulse Ox 99 95 Oxygen Delivery Method Room Air Room Air Room Air Positive well nourished and well developed General Appearance ED: well developed; Negative for pallor HEENT HEENT Narrative: Patient has soft tissue swelling with ecchymosis along the right orbit consistent with history of fall/trauma Otherwise no signs of depressed or basilar skull fracture Eyes PERRL and EOMs intact bilaterally Eyes Narrative: Swelling and ecchymosis along the right orbit as documented above No hyphema noted Neck Neck Narrative: No bony deformity or step-off of the cervical spine no midline tenderness to palpation There is bilateral cervical tenderness and spasm noted most consistent with cervical strain that worsens with sidebending and rotation. Resp normal respiratory effort and clear to auscultation bilaterally Cardio regular rate and regular rhythm GI normal to inspection, nondistended, normoactive bowel sounds, non-tender, non-distended and no masses Auscultation: normoactive bowel sounds Palpation: soft Back/Spine Back/Spine Narrative: No bony deformity or step-off of the thoracic or lumbar spine no midline tenderness to palpation Extremity normal to inspection Extremity Narrative: Pelvis is stable and there is no shortening or external rotation of either lower extremity Patient is able to move all extremities without difficulty or pain Neuro oriented x3, CN's II-XII intact bilaterally and no sensory deficits noted Sensorium / Orientation: alert Motor Exam: strength 5/5 throughout Psych mental status grossly normal Skin no rashes or lesions noted Skin Narrative: Soft tissue swelling with ecchymosis along the right orbit as documented above General Skin Exam: Negative for jaundice or pallor MDM MDM MDM Narrative Medical decision making narrative: Patient arrived to the ER slightly hypertensive but has a past medical history of this. He reported a history of vertigo and states he fell secondary to it and therefore I have no need to perform a cardiac or syncope workup. However because of his report of headache and facial trauma and blood thinner use there is concern for traumatic skull fracture versus traumatic subarachnoid or subdural hemorrhage. Patient may also have an orbital floor fracture. There is also potential for cervical compression fracture as he does report neck pain. Therefore CTs of the head neck and face were obtained. All imaging revealed no acute findings. Therefore this time patient does not have underlying internal trauma there is no signs of hyphema or septal hematoma and as the fall was mechanical there is no need for further workup regarding syncope and patient is otherwise safe for discharge. History & Record Review Discussion w/independent historian: Patient Radiography Diagnostic Testing: Clinical Impression(s) from Imaging Studies Brain CT 09/05/24 05:53 IMPRESSION: No intracranial hemorrhage, mass effect or calvarial fracture. Reading Location: [facility] Cervical Spine CT 09/05/24 05:53 IMPRESSION: No fracture or malalignment. Reading Location: [facility] Facial/Sinus 09/05/24 05:53 IMPRESSION: No acute fracture. Right cheek soft tissue swelling. Globes appear intact without retro bulbar stranding. [place] artifact from dental amalgam and fixation hardware. Status post right mandibular ORIF with plate and screws and non osseous united fracture plane, correlate with history. 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 Reading Location: [facility] Discharge Plan Triage Chief Complaint: Fall ED Provider: Ben Kohler Dx/Rx/DC Orders Clinical Impression: Closed head injury, Facial contusion, Accidental fall, Acute cervical myofascial strain, Hypertension, BPH (benign prostatic hyperplasia), GERD (gastroesophageal reflux disease), Current use of usp anticoagulation Instructions: [place], ED Head Injury (Adult), ED Neck Sprain or Strain Prescriptions: No Action omeprazole 10 mg capsule,delayed release(DR/EC) 10 mg PO DAILY cholecalciferol (vitamin D3) 10 mcg (400 unit) capsule 10 mcg PO DAILY Xarelto 20 mg tablet 20 mg PO DAILY Patient Comments: TAKE 1 TABLET BY MOUTH EVERY DAY WITH DINNER metronidazole 500 mg tablet 500 mg PO TID sulfamethoxazole-trimethoprim 800-160 mg tablet 1 tab PO BID amlodipine 2.5 mg tablet 2.5 mg PO DAILY doxazosin 2 mg tablet 2 mg PO DAILY polyethylene glycol 3350 [LaxaClear] 17 gram/dose powder 17 g PO DAILY PRN (Reason: constipation) Primary Care Provider: Jermaine Carpio Referrals: Jermaine Carpio, DO [Primary Care Provider] - Activity Restrictions/Additional Instructions: Your CT scan showed no sign of skull fracture brain bleed facial fracture or neck fracture. Continue Tylenol for pain control and add topical Voltaren or lidocaine patches to help with symptoms as well. Please continue to stretch and heat your neck to reduce pain and speed healing. Return to the ER should you have any further concerns Print Language: Finnish Disposition Disposition: Home, Self Care Discharge Date/Time: 09/05/24 07:11
[2024-09-05 07:00] VITALS: PULSE 59; RESP 14; O2SAT 95
[2024-09-05 07:05] VITALS: BP 141/68; PULSE 59; RESP 14; TEMP 36.4; O2SAT 95
== END 2024-09-05 07:11 | disposition home or self-care (01) ==
PROVIDERS: Emergency Provider Emergency Medicine; PCP Family Medicine; Visit Provider Emergency Medicine
DX: S16.1XXA Strain of muscle, fascia and tendon at neck level, initial encounter (principal); S00.11XA Contusion of right eyelid and periocular area, initial encounter; W01.198A Fall on same level from slipping, tripping and stumbling with subsequent striking against other object, initial encounter; I10 Essential (primary) hypertension; N40.0 Benign prostatic hyperplasia without lower urinary tract symptoms; K21.9 Gastro-esophageal reflux disease without esophagitis; Z92.3 Personal history of irradiation; Z92.21 Personal history of antineoplastic chemotherapy; Z79.01 Long term (current) use of anticoagulants; Z85.46 Personal history of malignant neoplasm of prostate; Z90.79 Acquired absence of other genital organ(s); Z86.711 Personal history of pulmonary embolism; Z86.718 Personal history of other venous thrombosis and embolism; Z79.899 Other long term (current) drug therapy
CPT/HCPCS: 70450; 70486; 72125; 99282

== ENCOUNTER 2024-11-15 23:30 | Emergency (ER) | payer MEDICARE, OTHER, SELFPAY ==
[2024-11-15 23:31] VITALS: BP 163/70; PULSE 57; RESP 18; TEMP 36.4; O2SAT 100; BMI 28.9
--- NOTE | 2024-11-16 00:23 | ED.RN ---
Pt decided not to wait to be seen and has decided to follow up with PCP tomorrow.
--- OUTSIDE RECORDS SUMMARY | 2024-11-16 00:57 | XMS RPT_ITS | CCD ---
Author Organization [facility] Care Team Providers Care Volunteer Services Coordinator Name Role Phone Jermaine Church Primary Care Provider [address] ENVIRONMENTAL HEALTH SAFETY ENGINEER-DAMAGE ASSESSOR, Nelly Guillen Unavailable [phone] Unknown Primary Care Provider Jermaine Zambrano Primary Care Provider Jermaine Church Primary Care Provider [phone] Jermaine Church DO Primary Care Provider Jermaine Church DO Primary Care Provider Jremaine Church DO Primary Care Provider Jermaine Church DO Primary Care Provider Jermaine Church DO Primary Care Provider Dr. Jermaine Church Primary Care Provider [phone] Dr. Jermaine Church Referring Provider Dr. Ryley Melo Attending Provider Dr. Tony Magaña Attending Provider Dr. Tony Magaña Admit Provider Dr. Tony Magaña Referring Provider Dr. Tony Magaña Other Provider Dr. Miranda Chappell Other Provider Dr. Jazmyne Franklin Attending Provider Dr. Renato Quintana Attending Provider Dr. Renato Quintana Other Provider MAXIM Regan Attending Provider Ranjit DO, Jermaine Primary Care Provider Ranjit DOJermaine Primary Care Provider [phone] Ranjit DO, Jermaine Primary Care Provider Ranjit, Dr. Jermaine Elliott Primary Care Provider Dr. Tony Magaña Attending Provider Ranjit, Dr. Jermaine Elliott Referring Provider Dr. Leonel Carlos Attending Provider CEDRICK NEWSOME Attending Unavailable BAVIS, CEDRICK Referring Unavailable RANJIT, JERMAINE Primary Care Unavailable JEROD, CEDRICK Attending Unavailable BAVIS, CEDRICK Referring Unavailable RANJIT, JERMAINE Primary Care Unavailable BAVCEDRICK RAMSAY Attending Unavailable RANJIT, JERMAINE Primary Care Unavailable RANJIT, JERMAINE Referring Unavailable ARPAN SUN Referring Unavailable RANJIT, JERMAINE Primary Care Unavailable SUZAN DINH Attending Unavailable RANJIT, JERMAINE Primary Care Unavailable RANJIT, JERMAINE Primary Care Unavailable CORINNEARPAN Attending Unavailable Ranjit DO, Jermaine Elliott Primary Care Provider JIMMY KULKARNI Referring Unavailable RANJIT, JERMAINE D Primary Care Unavailable RAFAEL MONCADA Attending Unavailable RANJIT, JERMAINE MACHUCA Primary Care Unavailable JIMMY KULKARNI Admitting Unavailable JMIMY KULKARNI Attending Unavailable SHIRA CRISTINA Referring Unavailable RANJIT, JERMAINE Elliott Primary Care Unavailable Ranjit , Dr. Jermaine Elliott Primary Care Provider [phone] Dr. Lizzie Rankin DO Emergency Provider Dr. Ben Kohler DO Emergency Provider MARY GONZALEZ Attending Unavailable RANJIT, JERMAINE MACHUCA Primary Care Unavailable MARY GONZALEZ Attending Unavailable RANJIT, JERMAINE MACHUCA Primary Care Unavailable Lizzie Rankin Attending Unavailable Ranjit, Jermaine Elliott Primary Care Unavailable Ben Kohler Attending Unavailable Ranjit, Jermaine Elliott Primary Care Unavailable Ranjit, Jermaine Elliott Primary Care Unavailable Provider, Ed Physician Attending Unavailab le Allergies Allergy Classification Reported Allergen(s) Allergy Type Date of Onset Reaction(s) Facility (20 sources) Morphine; Translations: [MORPHINE] Drug Allergy 09-13-19 19 Nausea Only, Other: See Comments, Dizziness [facility] [place] [place] Comment on above: Dizziness (20 sources) oxyCODONE; Translations: [OXYCODONE] Drug Allergy 03-21-20 17 Nausea Only, Other, Nausea/vomitin g [facility] [place] [place] Comment on above: Dizziness (1 source) Morphine Drug Allergy 12-03-19 [facility] Work Phone: (1 source) oxyCODONE Drug Allergy 03-21-20 17 dizziness, headache [facility] Work Phone: (20 sources) Acetaminophen / oxyCODONE; Translations: [OXYCODONE-ACETAM INOPHEN] Drug Allergy 10-29-19 18 Unknown, Dizziness, Nausea/vomitin g [facility] (20 sources) Ofloxacin; Translations: [OFLOXACIN] Drug Allergy 09-13-19 19 Other: See Comments, Dizziness, Nausea/vomitin g [facility] (5 sources) Acetaminophen Drug Allergy 09-05-19 23 Other [facility] Comment on above: Dizziness (17 sources) HYDROcodone; Translations: [HYDROCODONE] Drug Allergy 07-11-19 23 Nausea/vomitin g [facility] Comment on above: dizziness (4 sources) Acetaminophen / HYDROcodone; Translations: [HYDROCODONE-ACET AMINOPHEN] Drug Allergy 08-04-19 Dizziness, Nausea/vomitin g [facility] Work Phone: (1 source) ALLERGIES NOT ON FILE; Translations: [ALLERGIES NOT ON FILE] Propensity to adverse reactions (disorder) [facility] (1 source) Acetaminophen Drug Allergy 11-16-19 [facility] (1 source) HYDROcodone Drug Allergy 11-16-19 [facility] (1 source) Morphine Drug Allergy 11-16-19 [facility] (1 source) oxyCODONE Drug Allergy 11-16-19 25 [facility] Medications Current Medications Medication Drug Class(es) Dates Sig (Normalized) Sig (Original) acetaminophen 325 mg oral tablet (8 sources) Start: 08-08-2024 End: 08-15-2024 take 2 tablets by mouth every six hours acetaminophen (Tylenol) 325 mg tablet Indications: Fracture of unspecified part of body of left mandible, initial encounter for closed fracture (Multi) Take 2 tablets (650 mg) by mouth every 6 hours for 7 days. 28 tablet 08/08/2024 08/15/2024 Active Start: 08-06-2024 take 1 tablet by yanci th every six hours acetaminophen (Tylenol) tablet 650 mg Start: 08-05-2024 End: 08-05-2024 1,000 mg, intravenous, at 40 0 mL/hr, Administer over 15 Minutes, Once, On Sat08/05/24 at 1545, For 1 dose, Administer 6 hours after last dose. Start: 09-06-2022 End: 09-17-2022 take 2 tablets by mouth every six hours as needed for pain Acetaminophen 500 mg tablet Discontinued 1000 mg PO EVERY 6 HOURS as needed for pain 60 September 06, 2022 12:00am September 17, 2022 7:01pm Start: 09-06-2022 End: 09-17-2022 take 1000 mg by mouth every six hours Acetaminophen Discontinued 1000 MG PO EVERY 6 HOURS 60 September 06, 2022 12:00am September 17, 2022 7:01pm amitriptyline hydrochloride 10 mg oral tablet (20 sources) Tricyclic Antidepressant Start: 08-05-2023 End: 11-19-2023 amitriptyline (Elavil) 10 MG tablet Indications: New daily persistent headache Take 2 tablets (20 mg) by mouth every evening. TAKE 1 TAB BY MOUTH AT SUPPERTIME FOR 7 DAYS, THEN TAKE 2 TABS BY MOUTH SUPPERTIME THEREAFTER 60 tablet 2 08/21/2023 Active Start: 07-12-2023 End: 08-11-2023 amitriptyline (ELAVIL) 10 mg tablet TAKE 1 TAB BY MOUTH AT SUPPERTIME FOR 7 DAYS, THEN TAKE 2 TABS BY MOUTH SUPPERTIME THEREAFTER 07/12/2023 Active Comment on above: TAKE 1 TAB BY MOUTH AT SUPPERTIME FOR 7 DAYS, THEN TAKE 2 TABS BY MOUTH SUPPERTIME THEREAFTER amLODIPine 2.5 mg oral tablet (20 sources) Dihydropyridine Calcium Channel Jose Start: take 1 tablet by mouth once daily Amlodipine 2.5 mg tablet Active 2.5 mg PO DAILY September 05, 2024 12:00am Start: 08-08-2024 take 2.5 mg by mouth once paul y 2.5 mg, oral, Daily RT, First dose on Sat08/08/24 at 0915 Start: 03-21-2017 End: 09-05-2024 take 1 tablet by mouth once daily Amlodipine 5 mg tablet Discontinued 5 mg PO DAILY July 11, 2022 1:00am September 05, 2024 5:27am take 2 mg by mouth once daily am LODIPine (Norvasc) 2.5 mg tablet Take 2 mg by mouth once daily. Active Comment on above: Take 5 mg by mouth o nce daily. ampicillin-sulbac coffman (Unasyn) 3 g in sodium chloride 0.9% IV 100 mL (1 source) Start: take 3 g intravenously every six hours 3 g, intravenous, at 200 mL/hr, Administer over 30 Minutes, Every 6 hours, First dose on Sat08/05/24 at 1745, Phase II/On Unit, Mini-Bag Plus/ADD-[place] bag, Suspected Indication (Select all that apply): Surgical Prophylaxis, Indications: Surgical Prophylaxis apixaban 5 mg oral tablet (2 sources) Factor Xa Inhibitor Start: 2 End: 2 take 2 tablets by mouth twice daily apixaban (ELIQUIS) 5 MG TABS tablet Take 2 tablets by mouth 2 times daily for 7 days 28 tablet 0 10/02/2021 10/09/2021 Active Start: 10-02-2021 apixaban (ELIQ UIS) tablet 10 mg bicalutamide 50 mg oral tablet (20 sources) Androgen Receptor Inhibitor Start: 07-19-2021 End: 11-06-2021 take 1 tablet by mouth once daily bicalutamide (CASODEX) 50 mg tablet Indications: Prostate cancer (HCC) , Rising PSA following treatment for malignant neoplasm of prostate TAKE 1 TABLET BY MOUTH EVERY DAY 90 tablet 5 11/06/2021 Active Comment on above: TAKE 1 TABLET BY YANCI TH EVERY DAY Take 1 tablet by yanci th once daily. Calcium Carb-Cholecalciferol (CALCIUM/VITAMIN D PO) (20 sources) Calcium Carb-Cholecalcifero l (CALCIUM/VITAMIN D PO) Take by mouth. Active Calcium Carb-Cho lecalciferol (CALCIUM/VITAMIN D PO) Take by mouth. 0 Active calcium carbonate 1500 mg oral tablet (20 sources) take 1 tablet by yanci th once daily calcium carbonate (CALTRATE) 600 mg calcium (1,500 mg) tab Take 1 tablet by mouth once daily. Active take 1 tablet by mouth once paul y calcium carbonate (CALTRATE) 600 mg calcium (1,500 mg) tab Take 1 tablet by mouth once daily. Active Comment on above: Take 1 tablet by yanci th once daily. chlorhexidine gluconate 1.2 mg/ml mouthwash (2 sources) Start: 08-06-19 End: 08-16-19 take 15 mL by mouth twice daily chlorhexidine (Peridex) 0.12 % solution Indications: Fracture of unspecified part of body of left mandible, initial encounter for closed fracture (Multi) Use 15 mL in the mouth or throat 2 times a day for 7 days. 210 mL 08/08/2024 08/15/2024 Active cholecalciferol 0.01 mg oral capsule (20 sources) Vitamin D Start: 07-11-19 take 1 capsule by mouth once daily Cholecalciferol (Vitamin D3) 10 mcg (400 unit) capsule Active 10 ug PO DAILY July 11, 2022 1:00am Start: 11-30-2019 D3-1000 25 MCG (1000 UT) TABS 1 tablet daily CHOLECALCIFEROL [id number] Hawa Staley LPN take 1 capsule by mo uth once daily Cholecalciferol, Vitamin D3, 1,000 unit cap Take 1,000 Units by mouth once daily. Active Cholecalciferol (VITAMIN D3 PO) Take by mouth daily. Active Cholecalciferol (VITAMIN D3 PO) Take by mouth daily. 0 Active Cholecalciferol (VITAMIN D3 PO) Take by mouth. 0 Active Comment on above: Take 1,000 Units by mouth once daily. doxazosin 2 mg oral tablet (20 sources) alpha-Adrenergic Jose Start: 09-05-2024 take 1 tablet by mouth once daily Doxazosin 2 mg tablet Active 2 mg PO DAILY September 05, 2024 12:00am Start: 07-11-2022 End: 09-05-2024 take 1 tablet by mouth once daily Doxazosin (Cardura) 1 mg tablet Discontinued 1 mg PO DAILY July 11, 2022 1:00am September 05, 2024 5:27am Start: 03-21-2017 DOXAZOSIN MESY LATE 2 MG TABS 1 tablet daily DOXAZOSIN MESYLATE [id number] Hawa Staley LPN Comment on above: Take 2 mg by mouth d aily at bedtime. eye vitamin supplement (Ocuvite Eye Health Formula) capsule (1 source) take 1 capsule by mouth once daily eye vitamin supplement (Ocuvite Eye Health Formula) capsule Take 1 capsule by mouth once daily. Active ibuprofen 600 mg oral tablet (2 sources) Nonsteroidal Anti-inflammatory Drug Start: End: take 1 tablet by mouth three times daily ibuprofen 600 mg tablet Indications: Fracture of unspecified part of body of left mandible, initial encounter for closed fracture (Multi) Take 1 tablet (600 mg) by mouth 3 times a day for 7 days. 21 tablet 08/08/2024 08/15/2024 Active Start: 08-05-2024 ibuprofen tabl et 600 mg ketoconazole 20 mg/ml topical cream (2 sources) Azole Antifungal Start: 03-11-2019 ketoconazole (NIZORAL) 2 % cream Indications: Tinea cruris Apply topically daily. 30 g 0 03/11/2019 Active meclizine hydrochloride 25 mg oral tablet (20 sources) Antiemetic Start: 01-20-2019 take 1 tablet by mouth every eight hours as needed meclizine (ANTIVERT) 25 mg tab Take 1 tablet by mouth three times daily as needed. 15 tablet 01/20/2019 Active Comment on above: Take 1 tablet by yanci th three times daily as needed. megestrol acetate 20 mg oral tablet (20 sources) Progestin Start: 01-24-2022 End: 09-03-2024 take 1 tablet by mouth twice daily megestrol (MEGACE) 20 mg tablet Take 1 tablet (20 mg) by mouth two times a day. 180 tablet 3 09/06/2023 Active take 1 tablet by mouth once paul y megestrol (Megace) 20 MG tablet Take by mouth daily. Active Comment on above: Take 1 tablet (20 mg ) by mouth twice daily. TAKE 1 TABLET BY YANCI TH TWICE A DAY Take 1 tablet (20 mg ) by mouth two times a day. metroNIDAZOLE 500 mg oral tablet (4 sources) Nitroimidazole Antimicrobial Start: 08-09-19 End: 09-17-19 take 1 tablet by mouth three times daily Metronidazole 500 mg tablet Active 500 mg PO THREE TIMES A DAY September 03, 2024 12:00am omega 0-dnd-hhz-fish oil (FISH OIL) 100-160-1,000 mg cap (20 sources) omega 3-dha-epa- fish oil (FISH OIL) 100-160-1,000 mg cap Take by mouth. Active omega 3-dha-epa- fish oil (FISH OIL) 100-160-1,000 mg cap Take by mouth. 0 Active Comment on above: Take by mouth. omeprazole 10 mg delayed release oral capsule (20 sources) Proton Pump Inhibitor Start: 07-11-2022 take 1 capsule by mouth once daily Omeprazole 10 mg capsule,delayed release(DR/EC) Active 10 mg PO DAILY July 11, 2022 1:00am Start: 03-21-2017 OMEPRAZOLE 20 MG TBEC 1 tablet twice daily OMEPRAZOLE [id number] Hawa Staley LPN take 2 capsules by m outh once daily at bedtime omeprazole (PRILOSEC) 20 mg capsule Indications: Prostate cancer (HCC) , Elevated prostate specific antigen (PSA) Take 40 mg by mouth daily at bedtime. Active take 1 capsule by mo uth once daily before mealtime omeprazole (PriLOSEC) [address] capsule Take 1 capsule (20 mg) by mouth once daily in the morning. Take before meals. Active Comment on above: Take 40 mg by mouth daily at bedtime. Ondansetron (20 sources) Serotonin-3 Receptor Antagonist Start: 08-05-2024 take 1 tablet by mouth every eight hours as needed ondansetron (Zofran) tablet 4 mg Start: 09-25-2021 End: 09-25-2021 ondansetron (ZOFRAN) injecti on 4 mg Start: 01-20-2019 take 1 tablet by yanci th every eight hours as needed ondansetron orally disintegrating (ZOFRAN ODT) 4 mg disintegrating tablet Take 1 tablet by mouth every 8 hours as needed. 30 tablet 01/20/2019 Active Comment on above: Take 1 tablet by yanci th every 8 hours as needed. polyethylene glycol 3350 66730 mg powder for oral solution (4 sources) Osmotic Laxative Start: 09-03-2024 End: 09-05-2024 Polyethylene Glycol 3350 (Laxaclear) 17 gram/dose powder Active 17 g PO DAILY as needed for constipation September 05, 2024 12:00am Start: 08-06-2024 17 g, oral, Carl martel, First dose on Tara 08/06/24 at 1930 predniSONE 10 mg oral tablet (3 sources) Start: 07-12-2023 End: 07-19-2023 take 5 tablets by mouth once daily in the morning, then take 4 tablets by mouth once daily in the morning, then take 3 tablets by mouth once daily in the morning, then take 2 tablets by mouth once daily in the morning, then take 1 tablet by mouth once daily in the morning predniSONE (Deltasone) 10 MG tablet Take 5 tabs po AM the first day, take 4 tabs po AM the second day, take 3 tabs po AM the third day, take 2 tabs po AM the fourth day, and take 1 tab po AM the fifth day 15 tablet 0 07/12/2023 07/19/2023 Active rivaroxaban 20 mg oral tablet (20 sources) Factor Xa Inhibitor Start: 09-04-2022 take 1 tablet by mouth once daily Rivaroxaban (Xarelto) 20 mg tablet Active 20 mg PO DAILY September 04, 2022 12:00am Start: 07-11-2022 End: 07-13-2022 take 1 tablet by mouth twice daily Rivaroxaban (Xarelto) 2.5 mg tablet Discontinued 2.5 mg PO TWICE A DAY July 11, 2022 1:00am July 13, 2022 9:55am Start: 04-26-2022 take 1 tablet by yanci th in the morning rivaroxaban (Xarelto) 15 MG tablet Take 1 tablet (15 mg) by mouth in the morning and 1 tablet (15 mg) before bedtime. Do all this for 21 days. 42 tablet 04/26/2022 Active Comment on above: Take 20 mg by mouth daily with dinner. solifenacin succinate 5 mg oral tablet (2 sources) Cholinergic Muscarinic Antagonist Start: 09-15-19 End: 09-24-19 take 1 tablet by mouth once daily solifenacin (VESICARE) 5 mg tablet Indications: Nocturia Take 1 tablet by mouth once daily. 90 tablet 5 09/23/2024 Active sulfamethoxazole 800 mg / trimethoprim 160 mg oral tablet (9 sources) Dihydrofolate Reductase Inhibitor Antibacterial, Sulfonamide Antimicrobial Start: 08-09-19 End: 09-17-19 Sulfamethoxazole-T rimethoprim 800-160 mg tablet Active 1 {tbl} PO TWICE A DAY September 03, 2024 12:00am Start: 07-17-2022 End: 07-22-2022 take 1 tablet by mouth twice daily sulfamethoxazole-trimethoprim (Bactrim D S) 800-160 MG tablet Indications: Laceration of right thumb without foreign body without damage to nail, initial encounter , Laceration of right index finger without foreign body without damage to nail, initial encounter Take 1 tablet by mouth 2 times daily for 5 days. 10 tablet 0 07/17/2022 07/22/2022 Active traMADol hydrochloride 50 mg oral tablet (2 sources) Opioid Agonist Start: 08-05-2024 End: 08-11-2024 take 1 tablet by mouth every eight hours for pain traMADol (Ultram) 50 mg tablet Indications: Fracture of unspecified part of body of left mandible, initial encounter for closed fracture (Multi) Take 1 tablet (50 mg) by mouth every 8 hours if needed for severe pain (7 - 10) (Severe pain only) for up to 3 days. 10 tablet 08/08/2024 08/11/2024 Active trospium chloride 20 mg oral tablet (1 source) Cholinergic Muscarinic Antagonist Start: 08-18-2024 End: 11-16-2024 take 1 tablet by mouth once daily at bedtime trospium (SANCTURA) 20 mg tablet Indications: Nocturia Take 1 tablet by mouth daily at bedtime. For overactive bladder 30 tablet 2 08/18/2024 11/16/2024 Active TURMERIC-HERBAL COMPLEX NO.278 ORAL (20 sources) take 1 tablet by mouth once daily TURMERIC-HERBAL COMPLEX NO.278 ORAL Take 1 tablet by mouth once daily. Active take 1 tablet by mouth once paul y TURMERIC-HERBAL COMPLEX NO.278 ORAL Take 1 tablet by mouth once daily. 0 Active Comment on above: Take 1 tablet by yanci once daily. Completed/Discontinued Medications Medication Drug Class(es) Dates Sig (Normalized) Sig (Original) amoxicillin 500 mg oral tablet (3 sources) Penicillin-class Antibacterial Start: 11-26-2022 End: 01-07-2023 take 4 tablets by mouth every hour Amoxicillin 500 mg tablet Discontinued 2000 mg PO ONCE November 26, 2022 12:00am January 07, 2023 2:27pm take 4 tabs within 1 hr prior to dental procedure. Start: 11-26-2022 take 4 tablets by mo uth every hour Amoxicillin Active 2000 MG PO ONCE November 26, 2022 12:00am take 4 tabs within 1 hr prior to dental procedure. calcium carbonate 1250 mg / cholecalciferol 400 unt chewable tablet (1 source) Vitamin D Start: 11-30-2019 CALCIUM 500+D HIGH POTENCY 500-400 MG-UNIT TABS 1 tablet daily CALCIUM CARBONATE-VITAMIN D [id number] Hawa Staley LPN calcium chloride 0.0014 meq/ml / potassium chloride 0.004 meq/ml / sodium chloride 0.103 meq/ml / sodium lactate 0.028 meq/ml injectable solution (1 source) Start: 08-05-2024 End: 08-06-2024 take 50 mL intravenously every hour 50 mL/hr, intravenous, Continuous, Starting on Sat08/05/24 at 1800, For 1 day, Phase II/On Unit chondroitin sulfates 400 mg / glucosamine hydrochloride 500 mg oral tablet (1 source) Start: 11-30-2019 COSAMIN DS 500-400 MG TABS 1 tablet daily GLUCOSAMINE-CHONDROI TIN [id number] Hawa Staley LPN 0.4 ml enoxaparin sodium 100 mg/ml prefilled syringe (1 source) Low Molecular Weight Heparin Start: 08-05-2024 End: 08-07-2024 inject 40 mg by subcutaneous injection every twenty-four hours 40 mg, subcutaneous, Every 24 hours, First dose on Sat08/05/24 at 2100, Phase II/On Unit 0.5 ml HYDROmorphone hydrochloride 1 mg/ml prefilled syringe (1 source) Opioid Agonist Start: 08-05-2024 End: 08-05-2024 0.5 mg, intravenous, Every 5 min PRN, pain severe (7-10), first line, Starting on Sat08/05/24 at 1338, Recovery (only), Max total of 4 mg regardless of dose. iopamidol (ISOVUE-370) 76 % injection 75 mL (1 source) Start: 09-25-2021 End: 09-25-2021 iopamidol (ISOVUE-370) 76 % injection 75 mL iopamidol (Isovue-370) 76 % injection 75 mL (2 sources) Start: 08-13-2023 End: 08-13-2023 iopamidol (Isovue-370) 76 % injection 75 mL 1 ml ketorolac tromethamine 30 mg/ml injection (2 sources) Nonsteroidal Anti-inflammatory Drug, Cyclooxygenase Inhibitor Start: 08-05-2024 End: 08-05-2024 15 mg, intravenous, Once, On Sat08/05/24 at 1545, For 1 dose Start: 09-25-2021 End: 09-25-2021 ketorolac (TORADOL) injectio n 15 mg 1.5 ml leuprolide acetate 30 mg/ml prefilled syringe (1 source) Gonadotropin Releasing Hormone Receptor Agonist Start: 12-12-2021 End: 12-12-2021 leuprolide acetate (6 month) 45 mg IM syringe kit (LUPRON) Start: 12-12-2021 End: 12-12-2021 leuprolide acetate (6 month) 45 mg IM syringe kit (LUPRON) 10 ml methocarbamol 100 mg/ml injection (1 source) Muscle Relaxant Start: 08-05-2024 End: 08-05-2024 1,000 mg, intravenous, Administer over 5 Minutes, Once, On Sat08/05/24 at 1545, For 1 dose methylPREDNISolone 4 mg oral tablet (1 source) Corticosteroid Start: 12-03-2019 take 4 mg by mouth once daily MEDROL 4 MG TBPK Take by mouth daily as directed METHYLPREDNISOLONE [id number] Nelly Shah ENVIRONMENTAL HEALTH SAFETY ENGINEER-DAMAGE ASSESSOR OMEGA-3 FATTY ACIDS (1 source) Start: 11-30-2019 FISH OIL 1000 MG CAPS 1 capsule daily OMEGA-3 FATTY ACIDS [id number] Hawa Staley LPN oxyCODONE hydrochloride 5 mg oral tablet (5 sources) Opioid Agonist Start: 09-05-2022 End: 09-17-2022 take 5-10 mg by mouth every four hours as needed for pain Oxycodone 5 mg tablet Discontinued 5 - 10 mg PO Q4H as needed for pain 50 7 September 05, 2022 September 17, 2022 7:02pm pain scale 4-6: 5mg pain scale 7-10: 10mg Psyllium (1 source) Start: 11-30-2019 METAMUCIL 28.3 % POWD daily as directed PSYLLIUM [id number] Hawa Staley LPN 72 hr scopolamine 0.0139 mg/hr transdermal system (4 sources) Anticholinergic Start: 09-17-2022 End: 01-07-2023 Scopolamine Base 1 mg over 3 days Patch 3 Day Discontinued 1 NMA TD Q3D@1000 0 September 17, 2022 12:00am January 07, 2023 2:28pm Start: 09-17-2022 Scopolamine Ba se Active 1 PATCH TD Q3D@1000 0 September 17, 2022 12:00am Turmeric extract (1 source) Start: 11-30-2019 TURMERIC 500 M G TABS 1 tablet daily TURMERIC [id number] Hawa Staley LPN Problems Active Problems Problem Classification Problem Date Documented Da te Episodic/Chronic Abdominal pain (4 sources) Right upper quadrant pain; Translations: [Right upper quadrant pain] Onset: 5 Episodic Cancer of prostate (20 sources) Malignant tumor of prostate; Translations: [Malignant neoplasm of prostate] Onset: 9 01-18-2019 Chronic Cancer of prostate (6 sources) History of malignant neoplasm of prostate; Translations: [Personal history of malignant neoplasm of prostate] Onset: 5 08-18-2024 Episodic E Codes: Fall (5 sources) Fall; Translations: [Unspecified fall, initial encounter] Onset: 5 06-14-2024 Episodic Esophageal disorders (20 sources) Gastroesophageal reflux disease; Translations: [Gastro-esophageal reflux disease without esophagitis] 01-18-2019 Chronic Essential hypertension (8 sources) Hypertensive disorder; Translations: [Essential (primary) hypertension] Onset: 5 09-06-2022 Chronic Genitourinary symptoms and ill-defined conditions (13 sources) Nocturia; Translations: [Nocturia] Onset: 5 Episodic Headache; including migraine (4 sources) New daily persistent headache; Translations: [New daily persistent headache (NDPH)] Onset: 4 07-12-2023 Chronic Hyperplasia of prostate (6 sources) Benign prostatic hyperplasia; Translations: [Benign prostatic hyperplasia without lower urinary tract symptoms] 09-06-2022 Chronic Malaise and fatigue (6 sources) Asthenia; Translations: [Other malaise] 09-06-2022 Episodic Melanomas of skin (20 sources) Melanoma in situ of face; Translations: [Malignant melanoma] Onset: 7 03-25-2017 Chronic Mood disorders (6 sources) Depressive disorder; Translations: [Depression] 09-06-2022 Chronic Osteoarthritis (20 sources) Arthritis; Translations: [Unspecified osteoarthritis, unspecified site] 01-19-2019 Chronic Other acquired deformities (1 source) Spondylolisthesis L5/S1 level; Translations: [Spondylolisthesis, lumbosacral region] Onset: 0 12-03-2019 Chronic Other acquired deformities (2 sources) Lumbar spondylolisthesis; Translations: [Spondylolisthesis, lumbar region] 01-08-2023 Episodic Other aftercare (4 sources) Follow-up status; Translations: [Encounter for other orthopedic aftercare] 09-17-2022 Episodic Other connective tissue disease (5 sources) History of total hip arthroplasty; Translations: [Presence of left artificial hip joint] 09-05-2022 Chronic Other connective tissue disease (5 sources) Presence of left artificial hip joint; Translations: [Hip joint replacement] 09-06-2022 Chronic Other connective tissue disease (3 sources) Pain in lower limb; Translations: [Pain in right leg] 12-15-2022 Episodic Other gastrointestinal disorders (3 sources) Constipation; Translations: [Constipation, unspecified] Episodic Other injuries and conditions due to external causes (1 source) Closed injury of head; Translations: [Unspecified injury of head, initial encounter] 09-05-2024 Episodic Other injuries and conditions due to external causes (1 source) Unspecified injury of head, initial encounter; Translations: [Unspecified injury of head, initial encounter] Onset: Episodic Other nervous system disorders (5 sources) Acute postoperative pain; Translations: [Other acute postprocedural pain] 09-05-2022 Episodic Phlebitis; thrombophlebitis and thromboembolism (7 sources) Acute deep venous thrombosis of right axillary vein; Translations: [Acute embolism and thrombosis of right axillary vein] Episodic Pulmonary heart disease (6 sources) H/O: pulmonary embolus; Translations: [Personal history of pulmonary embolism] 09-06-2022 Episodic Skull and face fractures (11 sources) Fracture of bone of nasal sinus; Translations: [Maxillary fracture, unspecified side, initial encounter for closed fracture] Onset: 5 06-14-2024 Episodic Spondylosis; intervertebral disc disorders; other back problems (15 sources) Degeneration of lumbar intervertebral disc; Translations: [Sacroiliac disorder] Onset: 0 12-03-2019 Chronic Comment on above: advanced Spondylosis; intervertebral disc disorders; other back problems (8 sources) Cervico-occipital neuralgia; Translations: [Occipital neuralgia] Onset: 4 07-12-2023 Episodic Sprains and strains (1 source) Strain of neck muscle; Translations: [Strain of muscle, fascia and tendon at neck level, initial encounter] 09-05-2024 Episodic Superficial injury; contusion (1 source) Contusion of face; Translations: [Contusion of other part of head, initial encounter] 09-05-2024 Episodic Transient cerebral ischemia (5 sources) Vertebral artery syndrome; 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] Onset: 4 07-12-2023 Chronic Unclassified (1 source) Closed fracture of body of right mandible 08-03-2024 Past or Other Problems Problem Classification Problem Date Documented Da te Episodic/Chronic Conditions associated with dizziness or vertigo (20 sources) Vertigo; Translations: [Dizziness and giddiness] Onset: 01-17-2019 01-17-2019 Episodic Open wounds of extremities (10 sources) Laceration of right thumb; Translations: [Laceration without foreign body of right thumb without damage to nail, initial encounter] Episodic Other aftercare (3 sources) Encounter for other orthopedic aftercare; Translations: [Unspecified orthopedic aftercare] 09-17-2022 Episodic Other aftercare (1 source) Removal of sutures done; Translations: [Encounter for removal of sutures] Episodic Other screening for suspected conditions (not mental disorders or infectious disease) (20 sources) Raised prostate specific antigen; Translations: [Rising PSA following treatment for malignant neoplasm of prostate] Onset: 03-11-2024 01-19-2019 Episodic Unclassified (1 source) Problem Results Test Name Value Interpretation Reference Range Facility [facility] 09-23-2024 CNOV Office Visit (UROLAE) SEE PARIS ([id number]) 1945 M Date Time Provider Department 09/23/24 1:45 PM MARY GONZALEZ During your visit today, we recorded the following information about you: Pulse Weight Height 90/minute 85.3 kg 1.778 m Mary Gonzalez MD 09/23/2024 2:18 PM Signed ESTABLISHED PATIENT OFFICE VISIT HISTORY OF PRESENT ILLNESS Patient presents with: Prostate Cancer See Paris is a 79 year old male who 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 New vertigo, just broke his jaw as wellno LAB RESULTS Creatinine Date Value Ref Range Status 01/18/2019 1.10 0.67 - 1.17 mg/dL Final PSA (ng/mL) Date Value 09/08/2024 1.71 03/02/2024 0.64 11/11/2023 1.18 07/22/2023 4.4 04/08/2023 2.3 06/18/2022 0.32 07/12/2021 4.5 03/27/2021 3.7 11/18/2020 2.4 07/12/2020 2.4 02/22/2020 1.8 Color (no units) Date Value 01/17/2019 YELLOW Glucose, Urine (mg/dL) Date Value 01/17/2019 NEGATIVE Bilirubin, Urine (no units) Date Value 01/17/2019 NEGATIVE Ketones, Urine (mg/dL) Date Value 01/17/2019 NEGATIVE Specific [place], Ur (no units) Date Value 01/17/2019 1.020 pH, Urine (no units) Date Value 01/17/2019 8.5 Protein, Urine (mg/dL) Date Value 01/17/2019 NEGATIVE Nitrites Urine (no units) Date Value 01/17/2019 NEGATIVE Leukocytes Esterase (no units) Date Value 01/17/2019 NEGATIVE ALLERGIES Allergen Reactions Morphine Other: See Comments Ofloxacin Other: See Comments Percocet [Oxycodone* Unknown MEDICATIONS: solifenacin (VESICARE) 5 mg tablet Take 1 tablet by mouth once daily. amLODIPine (NORVASC) 2.5 mg tablet Take 2.5 mg by mouth. rivaroxaban (XARELTO) 20 mg tablet Take 20 mg by mouth daily with dinner. Cholecalciferol, Vitamin D3, 1,000 unit cap Take 1,000 Units by mouth once daily. doxazosin (CARDURA) 2 mg tablet Take 2 mg by mouth daily at bedtime. omeprazole (PRILOSEC) 20 mg capsule Take 40 mg by mouth daily at bedtime. megestrol (MEGACE) 20 mg tablet Take 1 tablet (20 mg) by mouth two times a day. (Patient not taking: Reported on 09/23/2024) amitriptyline (ELAVIL) 10 mg tablet TAKE 1 TAB BY MOUTH AT SUPPERTIME FOR 7 DAYS, THEN TAKE 2 TABS BY MOUTH SUPPERTIME THEREAFTER (Patient not taking: Reported on 08/18/2024) bicalutamide (CASODEX) 50 mg tablet TAKE 1 TABLET BY MOUTH EVERY DAY (Patient not taking: Reported on 09/23/2024) omega 0-ave-mdt-fish oil (FISH OIL) 100-160-1,000 mg cap Take by mouth. (Patient not taking: Reported on 09/23/2024) meclizine (ANTIVERT) 25 mg tab Take 1 tablet by mouth three times daily as needed. (Patient not taking: Reported on 09/23/2024) ondansetron orally disintegrating (ZOFRAN ODT) 4 mg disintegrating tablet Take 1 tablet by mouth every 8 hours as needed. (Patient not taking: Reported on 09/23/2024) calcium carbonate (CALTRATE) 600 mg calcium (1,500 mg) tab Take 1 tablet by mouth once daily. (Patient not taking: Reported on 08/18/2024) TURMERIC-HERBAL COMPLEX NO.278 ORAL Take 1 tablet by mouth once daily. (Patient not taking: Reported on 08/18/2024) amLODIPine (NORVASC) 5 mg tablet Take 5 mg by mouth once daily. (Patient not taking: Reported on 08/18/2024) REVIEW OF SYSTEMS GENERAL:no unintentional weight loss, malaise or fevers. NEUROLOGIC: pt is alert and oriented GENITOURINARY: No history of dysuria, frequency or incontinence The remainder of the ROS was reviewed and is negative. HISTORIES PAST MEDICAL HISTORY Diagnosis Date Arthritis Elevated PSA GERD (gastroesophageal reflux disease) Melanoma (HCC) Prostate cancer (HCC) History reviewed. No pertinent family history. PAST SURGICAL HISTORY Procedure Laterality Date EXTENSIVE JAW SURGERY 06/14/2024 LAPS PROSTECT RETROPUBIC RAD W/NRV SPARING ROBOT MELANOMA OF SKIN EXCISION SYN RPT PAST SURGICAL HISTORY OF removal of skin cancer from nose TOTAL HIP REPLACEMENT 09/04/2022 SOCIAL HISTORY Social History Tobacco Use Smoking status: Never Smokeless tobacco: Never Vaping Use Vaping status: Never Used Substance Use Topics Alcohol use: Yes Comment: once monthly Drug use: No PHYSICAL EXAMINATION General appearance: Well appearing, alert, in no acute distress, well-hydrated, well nourished Psych Alert and oriented to person, place and time Respiratory: no wheezing or rhonchi Genitourinary: MALE EXAM: Exam NOT Indicated 09/08/2024 PSA 1.7, test 490 03/02/2024 PSA 0.6 11/11/2023 PSA 1.2 09/05/2023 Lupron 08/22/2023 PSMA PET 0.4cm area uptake in prostatectomy bed 07/22/2023 PSA 4.4 06/18/2022 PSA 0.3 12/12/2021 Lupron 10/27/2021 PSA 2.0 07/28/2021 PSMA PET ++ two <1cm areas right pelvic fossa suspicious 07/12/2021 PSA 4.5 11/18/2020 PSA 2.4 07/12/2020 PSA 2.4 02/23/2020 PSA 1.8 10/27/2019 PSA 1.4 08/25/2019 PSA 1.7 10/20/2018 PSA 1.1 10/15/2017 PSA 0.6 07/30/2016: PSA: 0.4 01/16/2016 (more content not included)... Normal [facility] CNPUrvashi 09-14-2024 CNPN Telephone (CTURFL) SEE PARIS ([id number]) 1945 M Date Time Provider Department 09/14/24 MARY GONZALEZ During your visit today, we recorded the following information about you: Kaycee Hsu RN 09/14/2024 9:32 AM Signed Patient is calling regarding PSA result. Informed patient a message will be sent to provider and someone from our office will back in contact. YESSENIA Billingsley Todd F, MD 09/14/2024 1:02 PM Signed Let him know his PSA 1.7; we'll discuss at his upcoming appt MD Shadi Jacobs Nancy, RN 09/14/2024 1:11 PM Signed Called patient and informed him of his PSA result 1.7 and provider will discuss in greater detail at his upcoming appointment. Patient was given appointment date, time and location. Kaycee Hsu RN Allergies As of Date: 09/14/2024 Noted Allergy Reaction MORPHINE 09/12/2018 14 - Other: See Comments OFLOXACIN 09/12/2018 14 - Other: See Comments PERCOCET (OXYCODONE-ACETAMINO PHEN)10/28/2017 16 - Unknown Date Reviewed: 08/18/2024 Reviewed by: Rafael Moncada APRN.CASTRO, DNP - Fully Assessed Reason for Visit: Results [95] Prescriptions as of 09/14/2024 - solifenacin (VESICARE) 5 mg tablet Take 1 tablet by mouth once daily. - sulfamethoxazole-tri methoprim (BACTRIM DS) 800-160 mg per tablet Take 1 tablet by mouth two times a day. - metroNIDAZOLE (FLAGYL) 500 mg tablet Take 500 mg by mouth. - amLODIPine (NORVASC) 2.5 mg tablet Take 2.5 mg by mouth. - megestrol (MEGACE) 20 mg tablet Take 1 tablet (20 mg) by mouth two times a day. - amitriptyline (ELAVIL) 10 mg tablet TAKE 1 TAB BY MOUTH AT SUPPERTIME FOR 7 DAYS, THEN TAKE 2 TABS BY MOUTH SUPPERTIME THEREAFTER - rivaroxaban (XARELTO) 20 mg tablet Take 20 mg by mouth daily with dinner. - bicalutamide (CASODEX) 50 mg tablet TAKE 1 TABLET BY MOUTH EVERY DAY - omega 8-lob-gmc-fish oil (FISH OIL) 100-160-1,000 mg cap Take by mouth. - meclizine (ANTIVERT) 25 mg tab Take 1 tablet by mouth three times daily as needed. - ondansetron orally disintegrating (ZOFRAN ODT) 4 mg disintegrating tablet Take 1 tablet by mouth every 8 hours as needed. - Cholecalciferol, Vitamin D3, 1,000 unit cap Take 1,000 Units by mouth once daily. - calcium carbonate (CALTRATE) 600 mg calcium (1,500 mg) tab Take 1 tablet by mouth once daily. - TURMERIC-HERBAL COMPLEX NO.278 ORAL Take 1 tablet by mouth once daily. - amLODIPine (NORVASC) 5 mg tablet Take 5 mg by mouth once daily. - doxazosin (CARDURA) 2 mg tablet Take 2 mg by mouth daily at bedtime. - omeprazole (PRILOSEC) 20 mg capsule Take 40 mg by mouth daily at bedtime. Problem List As Of Date 09/14/2024 Noted Resolved Vertigo [R42] 01/17/2019 Arthritis [M19.90] Elevated PSA [R97.20] GERD (gastroesophageal reflux disease) [K21.9] Melanoma (HCC) [C43.9] Prostate cancer (HCC) [C61] History of prostate cancer [Z85.46] 08/18/2024 Nocturia [R35.1] 08/18/2024 Encounter Status:Closed by MARY GONZALEZ on 09/14/24 [facility] Brain/Head without Contrasto n 09-05-2024 Brain/Head without Contrast [facility] Imaging Services [address] [place], [place] [address] Brain/Head without Contrast MR#: [id number] Acct: [id number] Name: SEE PARIS Rep #: [id number] : 1945 M 79 From: Jay Gonzales MD PCP: Dr. Jermaine Church DO Status: REG ER Study: Brain/Head without Contrast Date of Exam: 08/18 02/11 Exam# [id number] Ordering Dr: Ben Kohler DO PROCEDURE: BRAIN/HEAD WITHOUT CONTRAST 09/05/2024 REASON FOR EXAM: HEAD INJURY TECHNIQUE: Head CT without intravenous contrast. Coronal and Sagittal reconstruction series were provided. One or more dose reduction techniques were used (e.g., Automated exposure control, adjustment of the mA and/or kV according to patient size, use of iterative reconstruction technique. RADIATION DOSE SUMMARY: CTDlvol: 44.99 mGy DLP: 897.35 mGycm COMPARISON: None available FINDINGS: No intracranial hemorrhage, mass effect or calvarial fracture. The ventricles are within limits and midline. Convexity volume loss, atrophy. CT/Brain/Head without Contrast IMPRESSION: No intracranial hemorrhage, mass effect or calvarial fracture. Reading Location: [facility] CC: Dr. Jermaine Church DO; Ben Kohler DO Exhaust Tender: Signed Normal [facility] Emergency Department Summary on 09-05-2024 Emergency Department Summary [facility] Medical Records Department [address] [place] [id number] Emergency Department Summary 09/05/24 MR#: [id number] Acct: [id number] Name: SEE PARIS Rep #: [id number] : 1945 79 From: Ben Kohler DO PCP: Dr. Jermaine Church DO Status:DEP ER Location: ED HPI History of Present Illness Chief Complaint: Fall Informant: patient Narrative Narrative: Patient is a 79-year-old male with past medical history of hypertension BPH GERD and previous DVT/PE currently on Xarelto. He also states he has been struggling with vertigo. He states that approximately 24 hours ago he was out walking in the morning when he had a bout of dizziness which caused him to lose his balance and he fell face first into a fence. He states he struck his head/face but denies LOC. He states he was able to get up and continue about his day and he noticed he was developing a headache in the evening when she took Tylenol for. He states he was able to fall asleep but woke up with the headache still and therefore I concerned about underlying internal injury because of his trauma and history of blood thinner use and therefore comes in for evaluation. [facility] Medical History Arthritis History of prostate cancer DVT (deep venous thrombosis) GERD (gastroesophageal reflux disease) Non-smoker Hx of blood clots Hx of radiation therapy History of chemotherapy Home Medications ???Medication ???Instructions ???Recorded ???Last Taken ???Type cholecalciferol (vitamin D3) 10 10 mcg PO DAILY Check with primary 07/11/22 09/03/22 History mcg (400 unit) capsule doctor omeprazole 10 mg capsule,delayed 10 mg PO DAILY Check with primary 07/11/22 09/03/22 History release doctor rivaroxaban 20 mg tablet (Xarelto) 20 mg PO DAILY blood clots 09/0409/01/22 18:00 History metronidazole 500 mg tablet 500 mg PO TID 09/03/24 Unknown His tory sulfamethoxazole 800 1 tab PO BID 09/03/24 Unknown Hist ory mg-trimethoprim 160 mg tablet amlodipine 2.5 mg tablet 2.5 mg PO DAILY 09/05/24 Unknown H istory doxazosin 2 mg tablet 2 mg PO DAILY 09/05/24 Unknown His tory polyethylene glycol 3350 17 17 g PO DAILY PRN constipation Unknown History gram/dose oral powder (LaxaClear) Allergy/AdvReac Type Severity Reaction Status Date / Time acetaminophen (From Percocet) Allergy Other Verified 09/05/24 05:22 hydrocodone (From Vicodin) Allergy Other Verified 09/05/24 05:22 morphine Allergy Other Verified 09/05/24 05:22 oxycodone (From Percocet) Allergy Other Verified 09/05/24 05:22 Surgical History History of total left hip arthroplasty Hx of prostatectomy Social History household members: spouse Smoking Status: Never smoker alcohol intake: never substance use type: does not use ROS ROS ED Constitutional Constitutional ED: Denies chills or fever(s) Eyes Eyes: Denies blurry vision or change in vision ENT ENT ED: Denies sore throat Cardiovascular Cardiovascular: Reports other Details: Negative syncope ; Denies chest pain, palpitations or racing heartbeat Respiratory/Chest Respiratory/Chest: Denies cough or dyspnea Gastrointestinal Gastrointestinal: Denies abdominal pain, diarrhea, nausea or vomiting Musculoskeletal Musculoskeletal: Reports neck pain; Denies back pain Integumentary Reports other Details: Positive facial swelling and bruising noted ; Denies rash Neurologic Neurologic: Reports headache(s); Denies paresthesias or weakness Hematologic/Lymphati c Hematologic/Lymphati c: Reports easy bleeding and easy bruising EXAM Physical Exam Const Vital Signs: 09/05/24 05:22 09/05/24 05:22 09/05/24 06:22 Temperature 97.6 F L Temperature Source Oral Pulse Rate 70 60 Respiratory Rate 19 H 17 Respiratory Effort Normal Non-Labored Respiratory Depth Normal Respiratory Pattern Normal Blood Pressure 155/74 H 141/68 H Blood Pressure Mean 101 92 Pulse Ox 99 95 Oxygen Delivery Method Room Air Room Air Room Air Positive well nourished and well developed General Appearance ED: well developed; Negative for pallor HEENT HEENT Narrative: Patient has soft tissue swelling with ecchymosis along the right orbit consistent with history of fall/trauma Otherwise no signs of depressed or basilar skull fracture Eyes PERRL and EOMs intact bilaterally Eyes Narrative: Swelling and ecchymosis along the right orbit as documented above No hyphema noted Neck Neck Narrative: No bony deformity or step-off of the cervical spine no midline tenderness to palpation There is bilateral cervical tenderness and spasm noted (more content not included)... Normal [facility] Sinus/Facial Boneon 09-06-19 Sinus/Facial Bone [facility] Imaging Services [address] [place], [place] [id number] Sinus/Facial Bone MR#: [id number] Acct: [id number] Name: SEE PARIS Rep #: [id number] : 1945 M 79 From: Jay Gonzales MD PCP: Dr. Jermaine Church, DO Status: REG ER Study: Sinus/Facial Bone Date of Exam: 09/05/24 Exam# [id number] Ordering Dr: Ben Kohler DO PROCEDURE: SINUS/FACIAL BONE REASON FOR EXAM: INJURY TECHNIQUE: CT of the paranasal sinuses without contrast. Coronal and Sagittal reconstruction series were provided. One or more dose reduction techniques were used (e.g., Automated exposure control, adjustment of the mA and/or kV according to patient size, use of iterative reconstruction technique). COMPARISON: None. FINDINGS: No acute fracture. Right cheek soft tissue swelling. Globes appear intact without retro bulbar stranding. Very mild mucoperiosteal thickening maxillary sinuses. No air-fluid levels. Incidental osteoma right sphenoid sinus. [place] artifact from dental amalgam and fixation hardware. Status post right mandibular ORIF with plate and screws and non osseous united fracture plane, correlate with history. 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 TMJs appear normally located. Mastoids are clear. CT/Sinus/Facial Bone IMPRESSION: No acute fracture. Right cheek soft tissue swelling. Globes appear intact without retro bulbar stranding. [place] artifact from dental amalgam and fixation hardware. Status post right mandibular ORIF with plate and screws and non osseous united fracture plane, correlate with history. 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 Reading Location: [facility] CC: Dr. Jermaine Church DO; Ben Kohler DO Exhaust Tender: Signed Normal [facility] Spine Cervical without Contr ason 09-05-2024 Spine Cervical without Contras [facility] Imaging Services [address] [place], [place] [id number] Spine Cervical without Contras MR#: [id number] Acct: [id number] Name: SEE PARIS Rep #: [id number] : 1945 M 79 From: Jay Gonzales MD PCP: Dr. Jermaine Church DO Status: REG ER Study: Spine Cervical without Contras Date of Exam: 0 09/05/24 Exam# [id number] Ordering Dr: Ben Kohler DO PROCEDURE: SPINE CERVICAL WITHOUT CONTRAS 09/05/2024 REASON FOR EXAM: PAIN/FALL TECHNIQUE: Cervical spine CT without contrast. Coronal and Sagittal reconstruction series were provided. One or more dose reduction techniques were used (e.g., Automated exposure control, adjustment of the mA and/or kV according to patient size, use of iterative reconstruction technique RADIATION DOSE SUMMARY: CTDlvol: 23.51 mGy DLP: 526.96 mGycm COMPARISON: None available FINDINGS: No fracture or malalignment. No prevertebral soft tissue swelling. Multilevel spondylosis/discogen ic change appears greatest at C3-4 and C6-7. Visualized apices are clear. CT/Spine Cervical without Contras IMPRESSION: No fracture or malalignment. Reading Location: [id number] CC: Dr. Jermaine Church DO; Ben Kohler DO Exhaust Tender: Signed Normal [facility] Abdomen/Pelvis W IV Cont ONL Yon 09-03-2024 Abdomen/Pelvis W IV Cont ONLY [facility] Imaging Services [address] [place], [place] [address] Abdomen/Pelvis W IV Cont ONLY MR#: [id number] Acct: [id number] Name: SEE PARIS Rep #: [id number] : 1945 M 79 From: Shailesh palacio MD PCP: Dr. Jermaine Church DO Status: REG ER Study: Abdomen/Pelvis W IV Cont ONLY Date of Exam: Exam# [id number] Ordering Dr: Lizzie Rankin DO PROCEDURE: ABDOMEN/PELVIS W IV CONT ONLY 09/03/2024 REASON FOR EXAM: LOWER ABD PAIN. TECHNIQUE: Abdomen and pelvis CT with intravenous contrast. Coronal and Sagittal reconstruction series were provided. PATIENT PREPARATION: Per protocol ORAL CONTRAST TYPE: None. CONTRAST: VOLUME: 100 mL Isovue-350 gauge IV One or more dose reduction techniques were used (e.g., Automated exposure control, adjustment of the mA and/or kV according to patient size, use of iterative reconstruction technique. RADIATION DOSE SUMMARY: CTDlvol: 28.8 mGy DLP: 1402 mGycm COMPARISON: None. FINDINGS: Diffuse colonic diverticulosis. Moderate amount of fecal residue in the rectosigmoid colon. Associated mild uncomplicated stercoral colitis without perforation or pneumatosis coli. Mild bilateral basilar atelectatic pulmonary changes. Small sliding hiatal hernia. Diffuse thickening of the stomach suggestive of gastritis. A few scattered simple hepatic cysts are noted with the largest measuring 4 mm. No follow-up is needed. Possible gallstone. No CT evidence of acute cholecystitis. Interposition of the colon between the liver and right hemidiaphragm, benign chronic finding. Prior radical prostatectomy. Scattered left renal peripelvic cysts are noted with the largest measuring 3.2 cm. No follow-up is needed. Bilateral fat containing inguinal hernias without incarceration. Unremarkable metallic prosthesis of the left hip. Mild osteopenia. Moderate diffuse spondylosis. 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 Normal extrahepatic biliary system. Normal spleen. Normal pancreas. Normal bilateral adrenal glands. Normal size of the right kidney. There is no right renal mass. There are no right renal calculi. There is no right hydronephrosis. Normal visualized right ureter. Normal size of the left kidney. There is no left renal mass. There are no left renal calculi. There is no left hydronephrosis. Normal visualized left ureter. Normal small intestine. The appendix is visualized and appears normal. There is no demonstrated peritoneal fluid. Mild atheromatous plaques of the abdominal aorta. Normal inferior vena cava. Normal retroperitoneum. Normal urinary bladder. There is no pelvic mass lesion or lymphadenopathy. There is no pelvic fluid. CT/Abdomen/Pelvis W IV Cont ONLY IMPRESSION: 1. Diffuse colonic diverticulosis. 2. Moderate amount of fecal residue in the rectosigmoid colon. Associated mild stercoral colitis without perforation or pneumatosis coli. 3. Mild bilateral basilar atelectatic pulmonary changes. 4. Small sliding hiatal hernia. 5. Diffuse thickening of the stomach suggestive of gastritis. 6. A few scattered simple hepatic cysts are noted with the largest measuring 4 mm. No follow-up is needed. 7. Possible gallstone. 8. No CT evidence of acute cholecystitis. 9. Interposition of the colon between the liver and right hemidiaphragm, benign chronic finding. 10. Prior radical prostatectomy. 11. Scattered left renal peripelvic cysts are noted with the largest measuring 3.2 cm. No follow-up is needed. 12. Bilateral fat containing inguinal hernias without incarceration. 13. Unremarkable metallic prosthesis of the left hip. 14. Mild osteopenia. 15. Moderate diffuse spondylosis. 16. 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 Reading Location: [place] [address] CC: Dr. Lizzie Rankin, DO; Dr. Jermaine Church DO Exhaust Tender: Signed Normal [facility] Absolute neutrophil countOrd ered By: Lizzie Rankin on 09-03-2024 Neutrophils (Bld) [#/Vol] 5.5 10*3/uL 2.0-7.7 [facility] Anion gap in Serum or Plasma Ordered By: Lizzie Rankin on 09-03-2024 Anion gap [Moles/Vol] 12 mmol/L 5-15 [facility] BUN/creatinine ratioOrdered By: Lizzie Rankin on 09-03-2024 Urea nitrogen/Creatinine [Mass ratio] 14.3 mg/mg 10-20 [facility] Basophil percentageOrdered B y: Lizzie Rankin on 09-03-2024 Basophils/100 WBC (Bld) 0.4 % 0-1 [facility] Bilirubin Test strip Ql (U)O rdered By: Lizzie Rankin on 09-03-2024 Bilirubin Ql (U) Negative Negative [facility] Bilirubin, totalOrdered By: Lizzie Rankin on 09-03-2024 Bilirubin [Mass/Vol] 0.41 mg/dL 0.00-1.30 [facility] CBC W/Diff, Automatedon 08-18 Absolute Lymph 0.62 X10 3/uL Low 0.83-4.51 [facility] Comment on above: Performed By: #### L 500.4050, L100.0100 #### [facility] [address] [place], [place], [id number] Absolute Neut 5.5 X10 3/uL Normal 2.0-7.7 [facility] Comment on above: Performed By: #### L 500.4050, L100.0100 #### [facility] [address] [place], [address] Basophils/100 WBC (Bld) 0.4 % Normal 0-1 [facility] Comment on above: Performed By: #### L 500.4050, L100.0100 #### [facility] [address] [place], [address] Eosinophils/100 WBC (Bld) 2.2 % Normal 0-5 [facility] Comment on above: Performed By: #### L 500.4050, L100.0100 #### [facility] [address] [place], [address] Erythrocyte distribution width (RBC) [Ratio] 14.4 % Normal 11.6-14.6 [facility] Comment on above: Performed By: #### L 500.4050, L100.0100 #### [facility] [address] [place], [address] Hematocrit (Bld) [Volume fraction] 41.6 % Normal 40-54 [facility] Comment on above: Performed By: #### L 500.4050, L100.0100 #### [facility] [address] [place], [address] Hemoglobin (Bld) [Mass/Vol] 14.0 g/dL Normal 13.0-16.5 [facility] Comment on above: Performed By: #### L 500.4050, L100.0100 #### [facility] [address] [place], [address] IG% 0.700 Normal 0.0-0.9 [facility] Comment on above: Result Comment: IG% - Immature Granulocytes (promyelocytes, myelocytes and metamyelocytes) > 1% indicates that a LEFT SHIFT is Present. Performed By: #### L 500.4050, L100.0100 #### [facility] [address] [place], [address] Lymphocytes/100 WBC (Bld) 8.9 % Low 19-41 [facility] Comment on above: Performed By: #### L 500.4050, L100.0100 #### [facility] [address] [place], [id number] MCH (RBC) [Entitic mass] 32.6 pg High 27.0-32.0 [facility] Comment on above: Performed By: #### L 500.4050, L100.0100 #### [facility] [address] [place], [id number] MCHC (RBC) [Mass/Vol] 33.7 g/dL Normal 32-36 [facility] Comment on above: Performed By: #### L 500.4050, L100.0100 #### [facility] [address] [place], [address] MCV (RBC) [Entitic vol] 97.0 fL High 80-94 [facility] Comment on above: Performed By: #### L 500.4050, L100.0100 #### [facility] [address] [place], [address] Monocytes/100 WBC (Bld) 9.2 % Normal 0-10 [facility] Comment on above: Performed By: #### L 500.4050, L100.0100 #### [facility] [address] [place], [address] Neutrophils/100 WBC (Bld) 78.6 % High 47-70 [facility] Comment on above: Performed By: #### L 500.4050, L100.0100 #### [facility] [address] [place], [address] Nucleated RBC (Bld) [#/Vol] 0 10*3/uL Normal 0-5 [facility] Comment on above: Performed By: #### L 500.4050, L100.0100 #### [facility] [address] [place], [id number] Platelet mean volume (Bld) [Entitic vol] 9.0 fL Normal 6.2-12.0 [facility] Comment on above: Performed By: #### L 500.4050, L100.0100 #### [facility] [address] [place], [id number] Platelets (Bld) [#/Vol] 151 10*3/uL Normal 150-450 [facility] Comment on above: Performed By: #### L 500.4050, L100.0100 #### [facility] [address] [place], [id number] RBC (Bld) [#/Vol] 4.29 10*6/uL Low 4.6-6.2 [facility] Comment on above: Performed By: #### L 500.4050, L100.0100 #### [facility] [address] [place], [id number] RDW SD 51.3 fl High 35.1-43.9 [facility] Comment on above: Performed By: #### L 500.4050, L100.0100 #### [facility] [address] [place], [id number] WBC (Bld) [#/Vol] 7.0 10*3/uL Normal 4.4-11.0 [facility] Comment on above: Performed By: #### L 500.4050, L100.0100 #### [facility] [address] [place], [address] Carbon dioxide, total [Moles /volume] in Central venous bloodOrdered By: Lizzie Rankin on 09-03-2024 CO2 [Moles/Vol] 21.6 mmol/L 21.0-32.0 [facility] Chloride assayOrdered By: Alexis Rankin on 09-03-2024 Chloride [Moles/Vol] 102 mmol/L 98-108 [facility] Comprehensive Metabolic Prof ilon 09-03-2024 Albumin [Mass/Vol] 4.0 g/dL Normal 3.4-4.8 [facility] Comment on above: Performed By: #### L 500.4050, L100.0100 #### [facility] [address] [place], [address] Albumin/Globulin [Mass ratio] 1.5 {ratio} Normal 0.9-2.4 [facility] Comment on above: Performed By: #### L 500.4050, L100.0100 #### [facility] [address] [place], [address] ALK PHOS 59 U/L Normal 40-129 [facility] Comment on above: Performed By: #### L 500.4050, L100.0100 #### [facility] [address] [place], [address] ALT [Catalytic activity/Vol] 25 U/L Normal <=46 [facility] Comment on above: Performed By: #### L 500.4050, L100.0100 #### [facility] [address] [place], [address] AST [Catalytic activity/Vol] 27 U/L Normal <=37 [facility] Comment on above: Performed By: #### L 500.4050, L100.0100 #### [facility] [address] [place], [address] Bilirubin [Mass/Vol] 0.41 mg/dL Normal 0.00-1.30 [facility] Comment on above: Performed By: #### L 500.4050, L100.0100 #### [facility] [address] [place], [address] BUN/CRE 14.3 RATIO Normal 10-20 [facility] Comment on above: Performed By: #### L 500.4050, L100.0100 #### [facility] [address] [place], [address] Calcium [Mass/Vol] 9.2 mg/dL Normal 7.6-11.0 [facility] Comment on above: Performed By: #### L 500.4050, L100.0100 #### [facility] [address] [place], [address] Chloride [Moles/Vol] 102 mmol/L Normal 98-108 [facility] Comment on above: Performed By: #### L 500.4050, L100.0100 #### [facility] [address] [place], [address] CO2 [Moles/Vol] 21.6 mmol/L Normal 21.0-32.0 [facility] Comment on above: Performed By: #### L 500.4050, L100.0100 #### [facility] [address] [place], [address] Creatinine [Mass/Vol] 1.14 mg/dL Normal 0.70-1.20 [facility] Comment on above: Performed By: #### L 500.4050, L100.0100 #### [facility] [address] [place], [address] ECRCL 59.10 ml/min Normal 50-250 [facility] Comment on above: Performed By: #### L 500.4050, L100.0100 #### [facility] [address] [place], [address] GAP 12 Normal 5-15 [facility] Comment on above: Performed By: #### L 500.4050, L100.0100 #### [facility] [address] [place], [address] GFR/1.73 sq M.predicted among non-blacks MDRD (S/P/Bld) [Vol rate/Area] 65 mL/min/{1.73_m2} Normal >60 [facility] Comment on above: Result Comment: mL/m in/1.73m2 CKD-EPI Creatinine Equation (2020) Performed By: #### L 500.4050, L100.0100 #### [facility] [address] [place], [address] Globulin (S) [Mass/Vol] 2.6 g/dL Normal 2.2-4.2 [facility] Comment on above: Performed By: #### L 500.4050, L100.0100 #### [facility] [address] [place], [address] Glucose [Mass/Vol] 113 mg/dL High 70-99 [facility] Comment on above: Performed By: #### L 500.4050, L100.0100 #### [facility] [address] [place], [address] Potassium [Moles/Vol] 4.0 mmol/L Normal 3.3-5.1 [facility] Comment on above: Performed By: #### L 500.4050, L100.0100 #### [facility] [address] [place], [address] Sodium [Moles/Vol] 135 mmol/L Normal 133-145 [facility] Comment on above: Performed By: #### L 500.4050, L100.0100 #### [facility] [address] [place], [address] T PROT 6.6 g/dL Normal 5.9-8.4 [facility] Comment on above: Performed By: #### L 500.4050, L100.0100 #### [facility] [address] [place], [address] Urea nitrogen [Mass/Vol] 16 mg/dL Normal 4-19 [facility] Comment on above: Performed By: #### L 500.4050, L100.0100 #### [facility] [address] [place], [address] Emergency Department Summary on 09-03-2024 Emergency Department Summary [facility] Medical Records Department [address] [place] [address] Emergency Department Summary 09/03/24 MR#: [id number] Acct: [id number] Name: SEE PARIS Rep #: [id number] : 1945 79 From: Lizzie Rankin DO PCP: Dr. Jermaine Church, Status:DEP ER Location: ED HPI HPI - GI History of Present Illness Chief Complaint: Abd Pain Informant: patient Narrative Narrative: Patient 79-year-old male with history of BPH, GERD, hypertension due to recent jaw surgery presenting with lower abdominal pain. Patient states that about 4 weeks ago he had a fracture of his jaw and a pin placed. It became infected and he has been on antibiotics (Bactrim and Flagyl). This was performed at with Dr. Marcos. He notes that around 9 PM today he started to have lower abdominal pain. He himself an enema and had a good bowel movement. He states he felt a lot better. He woke up around 3 AM and the pain returned. Did not go away this time and he came in for further evaluation. He notes since his surgery he has had constipation. Notes his bowel movements have been like marbles and hard. Denies any blood in the stool. Denies any fevers. Does have some occasional nausea for which he has nausea medicine for but denies any vomiting. Has never had any pain like this before. Denies any radiation of the pain. Denies any prior abdominal surgeries. States he had a colonoscopy about 5 years ago and there was a polyp but otherwise denies any acute abnormalities. Does report that he has frequent urination at night and out but this was going on even before the surgery. He states his doctor had prescribed him tamsulosin but he did stop taking it. Denies any dysuria. No other complaints or concerns reported at this time. [facility] Medical History Arthritis History of prostate cancer DVT (deep venous thrombosis) GERD (gastroesophageal reflux disease) Non-smoker Hx of blood clots Hx of radiation therapy History of chemotherapy Home Medications ???Medication ???Instructions ???Recorded ???Last Taken ???Type amlodipine 5 mg tablet 5 mg PO DAILY BP 07/11/22 09/03/22 History cholecalciferol (vitamin D3) 10 10 mcg PO DAILY Check with primary 07/11/22 09/03/22 History mcg (400 unit) capsule doctor doxazosin 1 mg tablet (Cardura) 1 mg PO DAILY BPH 07/11/22 3 History omeprazole 10 mg capsule,delayed 10 mg PO DAILY Check with primary 07/11/22 09/03/22 History release doctor rivaroxaban 20 mg tablet (Xarelto) 20 mg PO DAILY blood clots 09/0409/01/22 18:00 History metronidazole 500 mg tablet 500 mg PO TID 09/03/24 Unknown His tory polyethylene glycol 3350 17 17 g PO DAILY #119 grams 09/03/24 Unknown Rx gram/dose oral powder (LaxaClear) sulfamethoxazole 800 1 tab PO BID 09/03/24 Unknown Hist ory mg-trimethoprim 160 mg tablet Allergy/AdvReac Type Severity Reaction Status Date / Time acetaminophen (From Percocet) Allergy Other Verified 09/03/24 04:31 hydrocodone (From Vicodin) Allergy Other Verified 09/03/24 04:31 morphine Allergy Other Verified 09/03/24 04:31 oxycodone (From Percocet) Allergy Other Verified 09/03/24 04:31 Surgical History History of total left hip arthroplasty Hx of prostatectomy Social History household members: spouse Smoking Status: Never smoker alcohol intake: never substance use type: does not use ROS ROS ED Constitutional Constitutional ED: Denies chills or fever(s) Cardiovascular Cardiovascular: Denies chest pain Respiratory/Chest Respiratory/Chest: Denies cough Gastrointestinal Gastrointestinal: Reports abdominal pain, constipation and nausea; Denies melena Genitourinary Genitourinary ED: Reports urinary frequency; Denies dysuria or hematuria Integumentary Denies rash Neurologic Neurologic: Denies weakness Hematologic/Lymphati c Hematologic/Lymphati c: Reports easy bleeding, easy bruising and other Details: On Xarelto EXAM Physical Exam Const Vital Signs: 09/03/24 04:27 Temperature 97.6 F L Temperature Source Oral Pulse Rate 74 Respiratory Rate 16 Blood Pressure 149/74 H Blood Pressure Mean 99 Pulse Ox 96 Oxygen Delivery Method Room Air Positive well nourished and well developed General Appearance ED: well developed and NAD; Negative for pallor HEENT Reports moist mucous membranes Resp normal respiratory effort and clear to auscultation bilaterally Cardio regular rate and regular rhythm GI non-tender and non-distended Auscultation: hyperactive bowel sounds Palpation: soft and tender periumbilical and suprapubic; Negative for guarding or rigid Back/Spine no C (more content not included)... Normal [facility] Eosinophil percentageOrdered By: Lizzie Rankin on 09-03-2024 Eosinophils/100 WBC (Bld) 2.2 % 0-5 [facility] Epithelial cells.squamous LM Ql (Urine sed)Ordered By: Lizzie Rankin on 09-03-2024 Epithelial cells.squamous LM.HPF (Urine sed) [#/Area] 0 /[HPF] 0-5 [facility] Erythrocyte distribution wid th (RBC) [Ratio]Ordered By: Lizzie Rankin on 09-03-2024 Erythrocyte distribution width (RBC) [Entitic vol] 51.3 fL High 35.1-43.9 [facility] Erythrocyte distribution wid th ratioOrdered By: Lizzie Rankin on 09-03-2024 Erythrocyte distribution width (RBC) [Ratio] 14.4 % 11.6-14.6 [facility] Estimation of creatinine jaycob aranceOrdered By: Lizzie Rankin on 09-03-2024 Estimated Creatinine Clearance Calc 59.10 ml/min 50-250 [facility] GFR/1.73 sq M.predicted zeina g non-blacks MDRD (S/P/Bld) [Vol rate/Area]Ordered By: Lizzie Rankin on 09-03-2024 Estimated GFR (MDRD) Non-Af Amer 65 >60 [facility] Comment on above: mL/min/1.73m2 CKD-EP I Creatinine Equation (2020) Glucose Ql (U)Ordered By: Alexis Rnakin on 09-03-2024 Urine Glucose (UA) Normal mg/dl Normal [facility] Hematocrit Auto (Bld) [Volum e fraction]Ordered By: Lizzie Rankin on 09-03-2024 Hematocrit (Bld) [Volume fraction] 41.6 % 40-54 [facility] Hemoglobin measurementOrdere d By: Lizzie Rankin on 09-03-2024 Hemoglobin (Bld) [Mass/Vol] 14.0 g/dL 13.0-16.5 [facility] Immature granulocytes/100 WB C Auto (Bld)Ordered By: Lizzie Rankin on 09-03-2024 Immature granulocytes/100 WBC (Bld) 0.700 % 0.0-0.9 [facility] Comment on above: IG% - Immature Granu locytes (promyelocytes, myelocytes and metamyelocytes) > 1% indicates that a LEFT SHIFT is Present. Ketones Test strip Ql (U)Ord ered By: Lizzie Rankin on 09-03-2024 Ketones Ql (U) Negative Negative [facility] - Chemistry and C hemistry - challengeOrdered By: Lizzie Rankin on 09-03-2024 AST [Catalytic activity/Vol] 27 U/L <38 [facility] Lymphocytes Auto (Unsp spec) [#/Vol]Ordered By: Lizzie Rankin on 09-03-2024 Lymphocytes (Bld) [#/Vol] 0.62 10*3/uL Low 0.83-4.51 [facility] Lymphocytes/100 WBC Auto (Un sp spec)Ordered By: Lizzie Rankin on 09-03-2024 Lymphocytes/100 WBC (Bld) 8.9 % Low 19-41 [facility] MCV (mean corpuscular volume ) determinationOrdered By: Lizzie Rankin on 09-03-2024 MCV (RBC) [Entitic vol] 97.0 fL High 80-94 [facility] Mean corpuscular hemoglobin (MCH) determinationOrdered By: Lizzie Rankin 09-03-2024 MCH (RBC) [Entitic mass] 32.6 pg High 27.0-32.0 [facility] Mean corpuscular hemoglobin concentration (MCHC) determinationOrdered By: Lizzie Rankin on 09-03-2024 MCHC (RBC) [Mass/Vol] 33.7 g/dL 32-36 [facility] Mean platelet volume determi nationOrdered By: Lizzie Rankin on 09-03-2024 Platelet mean volume (Bld) [Entitic vol] 9.0 fL 6.2-12.0 [facility] Microscopic analysis of urin e for red blood cells (RBC)Ordered By: Lizzie Rankin on 09-03-2024 Urine RBC 0 SEEN /hpf 0-5 [facility] Urine RBC 0-5 SEEN /hpf 0-5 [facility] Comment on above: Previous reported re sult: 0 SEEN /hpfEdited by: GEO on 09/03/24:1017 AMENDED REPORT 09/03/24 1017 RBC-UA previously reported as: 0 SEEN /hpf Monocyte percentageOrdered B y: Lizzie Rankin on 09-03-2024 Monocytes/100 WBC (Bld) 9.2 % 0-10 [facility] Mucus LM Ql (Urine sed)Order ed By: Lizzie Rankin on 09-03-2024 Mucus Ql (Urine sed) 0 SEEN /hpf [facility] Neutrophil percentageOrdered By: Lizzie Rankin on 09-03-2024 Neutrophils/100 WBC (Bld) 78.6 % High 47-70 [facility] Nitrite Test strip Ql (U)Ord ered By: Lizzie Rankin on 09-03-2024 Nitrite Ql (U) Negative Negative [facility] Nucleated red blood cell per centageOrdered By: Lizzie Rankin on 09-03-2024 Nucleated RBC/100 WBC (Bld) [Ratio] 0 % 0-5 [facility] Platelet countOrdered By: Alexis Rankin on 09-03-2024 Platelets (Bld) [#/Vol] 151 10*3/uL 150-450 [facility] Potassium (Unsp spec) [Mass/ Vol]Ordered By: Lizzie Rankin on 09-03-2024 Potassium [Moles/Vol] 4.0 mmol/L 3.3-5.1 [facility] Protein Test strip Ql (U)Ord ered By: Lizzie Rankin on 09-03-2024 Protein Ql (U) 15 mg/dl High Negative [facility] Protein Ql (U) TNP [facility] Comment on above: Test not performedPr evious reported result: 15 mg/dlEdited by: DARÍO on 09/03/24:0950 AMENDED REPORT 09/03/24 0950 PROT DIPSTX previously reported as: 15 H mg/dl Protein, Urine (Random)on Protein (U) [Mass/Vol] 7.4 mg/dL Normal 0.0-12.0 [facility] Comment on above: Performed By: #### L 400.0001, L501.1930 #### [facility] [address] [place], [address] RBC Auto (Bld) [#/Vol]Ordere d By: Lizzie Rankin on 09-03-2024 RBC (Bld) [#/Vol] 4.29 10*6/uL Low 4.6-6.2 [facility] Serum creatinine measurement (mass/volume)Ordered By: Lizzie Rankin on 09-03-2024 Creatinine [Mass/Vol] 1.14 mg/dL 0.70-1.20 [facility] Serum globulin measurementOr dered By: Lizzie Rankin on 09-03-2024 Globulin (S) [Mass/Vol] 2.6 g/dL 2.2-4.2 [facility] Serum glucose measurement (m ass/volume)Ordered By: Lizzie Rankin on 09-03-2024 Glucose [Mass/Vol] 113 mg/dL High 70-99 [facility] Serum or plasma alanine santos otransferase (ALT) measurementOrdered By: Lizzie Rankin on 09-03-2024 ALT [Catalytic activity/Vol] 25 U/L <47 [facility] Serum or plasma albumin melissa urement (mass/volume)Ordered By: Lizzie Rankin on 09-03-2024 Albumin [Mass/Vol] 4.0 g/dL 3.4-4.8 [facility] Serum or plasma albumin/glob ulin mass ratioOrdered By: Lizzie Rankin on 09-03-2024 Albumin/Globulin [Mass ratio] 1.5 {ratio} 0.9-2.4 [facility] Serum or plasma alkaline ashley sphatase measurementOrdered By: Lizzie Rankin on 09-03-2024 ALP [Catalytic activity/Vol] 59 U/L 40-129 [facility] Serum or plasma calcium melissa urement (mass/volume)Ordered By: Lizzie Rankin on 09-03-2024 Calcium [Mass/Vol] 9.2 mg/dL 7.6-11.0 [facility] Serum or plasma urea nitroge n measurement (mass/volume)Ordered By: Lizzie Rankin on 09-03-2024 Urea nitrogen [Mass/Vol] 16 mg/dL 4-19 [facility] Sodium levelOrdered By: Ramo Rankin on 09-03-2024 Sodium [Moles/Vol] 135 mmol/L 133-145 [facility] Specific gravity Refractomet ry (U) [Rel density]Ordered By: Lizzie Rankin on 09-03-2024 Specific gravity (U) [Rel density] See comment [facility] Comment on above: SEE URINE CHEMISTRY PROTIEN ORDER FOR THIS RESULT. Total proteinOrdered By: Alem Rankin on 09-03-2024 Protein [Mass/Vol] 6.6 g/dL 5.9-8.4 [facility] Urinalysis, Completeon 09-03 SP.GR. Normal [facility] Comment on above: Order Comment: CLEAN CATCH Result Comment: SEE URINE CHEMISTRY PROTIEN ORDER FOR THIS RESULT. Performed By: #### L 400.0001, L501.1930 #### [facility] [address] [place] [address], [id number] Urine blood detectionOrdered By: Lizzie Rankin on 09-03-2024 Urine Occult Blood 10 /ul High Negative [facility] Urine clarityOrdered By: Alem Rankin on 09-03-2024 Clarity (U) Clear Clear [facility] Urine color determinationOrd ered By: Lizzie Rankin on 09-03-2024 Color (U) Yellow Yellow [facility] Urine leukocyte esterase det ection by dipstickOrdered By: Lizzie Rankin on 09-03-2024 Leukocyte esterase Test strip Ql (U) 25 /ul High Negative [facility] Urine pHOrdered By: Lizzie alvarenga on 09-03-2024 pH (U) 6.5 [pH] 5.0 - 8.0 [facility] Urine protein measurement (m ass/volume)Ordered By: Lizzie Rankin on 09-03-2024 Protein (U) [Mass/Vol] 7.4 mg/dL 0.0-12.0 [facility] Urine sediment bacteria coun t by microscopy (number/high power field)Ordered By: Lizzie Rankin on 09-03-2024 Bacteria LM.HPF (Urine sed) [#/Area] 0 /[HPF] None Seen [facility] Urine specific gravity measu rementOrdered By: Lizzie Rankin on 09-03-2024 Specific gravity (U) [Rel density] 1.010 1.002-1.030 [facility] Urobilinogen Ql (U)Ordered B y: Lizzie Rankin on 09-03-2024 Urine Urobilinogen Normal mg/dl Normal [facility] White blood cell (WBC) count Ordered By: Lizzie Rankin on 09-03-2024 WBC (Bld) [#/Vol] 7.0 10*3/uL 4.4-11.0 [facility] White blood cell countOrdere d By: Lizzie Rankin on 09-03-2024 Urine WBC 0 SEEN /hpf 0-5 [facility] Urine WBC 0-5 SEEN /hpf 0-5 [facility] Comment on above: Previous reported re sult: 0 SEEN /hpfEdited by: GEO on 09/03/24:1017 AMENDED REPORT 09/03/24 1017 WBC previously reported as: 0 SEEN /hpf CNOVon 08-18-2024 CNOV Office Visit (UROLSF) SEE PARIS ([id number]) 1945 M Date Time Provider Department 08/18/24 10:30 AM RAFAEL MONCADA During your visit today, we recorded the following information about you: Weight Height 88 kg 1.778 m Rafael Moncada APRN.CASTRO, VARGAS 08/18/2024 11:04 AM Signed [facility] M[facility] PATIENT - HISTORY AND PHYSICAL EXAMINATION PATIENT: See Paris (79 year old) PCP: Jermaine Church DO CHIEF COMPLAINT: LUTS HISTORY OF PRESENT ILLNESS: 79 year old year old male with LUTS. C/o burning with urination. Past med Hx: Hx of prostate cancer, ED, BPH Patient of Dr. Gonzalez. HX of prostate cancer. Prostate cancer- s/p RALP followed salvage IMRT, he previously refused oncology referral and not interested in additional XRT or salvage therapies. Last Lupron 08/2023, again he had hot flashes and less energy (no help with Megace) after injection, latest PSA 0.6 The patient reports an increase in nocturia, now occurring every 2 hours, which began around November. Previously, he experienced nocturia 2-4 times per night but was able to return to sleep without difficulty. He denies urgency, urinary incontinence, or the use of pads. He describes his urinary stream as medium and denies any significant weak stream or feeling of incomplete bladder emptying. He has not been on any overactive bladder medications. The patient has a history of prostate cancer and underwent a prostatectomy and hormone therapy, with the last Lupron injection administered in August of the previous year. He decided to discontinue further treatment at that time. He was previously prescribed megestrol for hot flashes, which he reports was ineffective. He also mentions a recent fall on ice on June 14, resulting in a jaw injury that required pin placement. The injury became infected, necessitating a 3-day hospital stay for IV antibiotics. PRESENTING HISTORY: Hematuria: none Obstructive voiding symptoms: none. Irritative voiding symptoms: nocturia Urinary retention: no Urinary incontinence: no Urinary tract infection: no 03/02/2024 PSA 0.6 11/11/2023 PSA 1.2 09/05/2023 Lupron 08/22/2023 PSMA PET 0.4cm area uptake in prostatectomy bed 07/22/2023 PSA 4.4 06/18/2022 PSA 0.3 12/12/2021 Lupron 10/27/2021 PSA 2.0 07/28/2021 PSMA PET ++ two <1cm areas right pelvic fossa suspicious 07/12/2021 PSA 4.5 11/18/2020 PSA 2.4 07/12/2020 PSA 2.4 02/23/2020 PSA 1.8 10/27/2019 PSA 1.4 08/25/2019 PSA 1.7 10/20/2018 PSA 1.1 10/15/2017 PSA 0.6 07/30/2016: PSA: 0.4 01/16/2016: PSA: 0.3 07/12/2015: PSA: 0.3 01/03/2015: PSA: 0.29 09/13/2014: salvage IMRT complete 07/08/2014: PSA: 0.27 06/14/2014: PSA: 0.29 02/17/2014: PSA: 0.20 08/21/2013: PSA: 0.15 02/05/2008: PSA: 0.1 01/15/2008: PSA: 0.12 12/02/2007: RALP Gl 7, neg margins 06/10/2007: PSA: 6.3 (PROSCAR) Patient Entered Questionnaires: INTERNATIONAL PROSTATE SYMPTOM SCORE (I-PSS) 1)INCOMPLETE EMPTYING Over the past month, how often have you had a sensation of not emptying your bladder completely after you finished urinating? SCORE: 0- Not at all 2)FREQUENCY Over the past month, how often have you had to urinate again less than two hours after you finished urinating? SCORE: 1- Less than 1 time in 5 3)INTERMITTENCY Over the past month, how often have you found you stopped and started again several times when you urinated? SCORE: 0- Not at all 4)URGENCY Over the past month, how often have you found it difficult to postpone urination? SCORE: 0- Not at all 5)WEAK STREAM Over the past month, how often have you had a weak stream? SCORE: 1- Less than 1 time in 5 6)STRAINING Over the past month, how often have you had to push or strain to begin urination SCORE: 1- Less than 1 time in 5 7)NOCTURIA Over the past month, how many times did you most typically get up to urinate from the time you went to bed at night until the time you get up in the morning? SCORE:4 TOTAL I-PSS SCORE: 7 QUALITY OF LIFE DUE TO URINARY SYMPTOMS If you were to spend the rest of yur life with your urinary condition just the way it is now, how would you feel about that? 4- Mostly dissatisfied PROMIS Global Health Percentiles provide an indication of how the patient's score ranks in relation to the general population. Higher percentile rankings indicate better function/quality of life. 50th percentile is the average of the general population and indicates half of respondents had a worse score. 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 Normal [facility] UA DIP, URINE (POC)on 2024 BILIRUBIN UA (POCT) Negative Negative [facility] CLARITY UA (POCT) Slightly Cloudy Cl [facility] COLOR UA (POCT) [facility] GLUCOSE UA (POCT) Negative Negative mg/dL [facility] Hemoglobin Ql (U) Negative Negative [facility] KETONE UA (POCT) Trace Negative mg/dL [facility] LEUKOCYTES UA (POCT) Negative Negative [facility] NITRITE UA (POCT) Negative Negative [facility] PH UA (POCT) 5.5 4.5 - 8.0 [facility] Protein Ql (U) Negative Negative mg/dL [facility] SPECIFIC GRAVITY UA (POCT) >=1.030 1.005 - 1.030 [facility] UROBILINOGEN UA (POCT) 0.2 Yin l E.U./dL [facility] Location:[facility], [address] [place] [address], [place], [address] [facility] POINT OF CARE [facility] Bacteria identifiedon 2024 Bacteria identified Cx Nom (Bld) Test: Blood Culture Specimen Source: Peripheral Venipuncture Specimen Type: Blood culture Specimen Date: 08/07/2024 0705 Result Date: 08/11/2024 1002 Result Status: Final result Abnormal: No Resulting Lab: [facility] [address] [facility] [address] CULTURE No growth at 4 days - FINAL REPORT Normal [facility] Comment on above: Performed By: #### 6 00-7 #### ELIZABETH Yadav ([id number]) [facility] ([facility]) [address] [place] [address] Basic metabolic 2000 panelon 08-06-2024 Anion gap [Moles/Vol] 12 mmol/L 10 - 2 0 mmol/L [facility] Calcium [Mass/Vol] 8.9 mg/dL 8.6 - 10. 6 mg/dL [facility] Chloride [Moles/Vol] 106 mmol/L 98 - 10 7 mmol/L [facility] CO2 [Moles/Vol] 23 mmol/L 21 - 32 mmol/L [facility] Creatinine [Mass/Vol] 0.9 mg/dL 0.50 - 1.30 mg/dL [facility] GFR/1.73 sq M.predicted among non-blacks MDRD (S/P/Bld) [Vol rate/Area] 87 mL/min/{1.73_m2} - PINF [facility] Comment on above: Calculations of kavin mated GFR are performed using the 2020 CKD-EPI Study Refit equation without the race variable for the IDMS-Traceable creatinine methods. https://jasn.asnjournals.org/content/early/ASN.158 2635643 Glucose [Mass/Vol] 112 mg/dL High 74 - 99 mg/dL [facility] Interpretation and review of laboratory results Abnormal [facility] Potassium [Moles/Vol] 4.1 mmol/L 3.5 - 5.3 mmol/L [facility] Sodium [Moles/Vol] 137 mmol/L 136 - 145 mmol/L [facility] Urea nitrogen [Mass/Vol] 20 mg/dL 6 - 23 mg/d L [facility] Anion gap [Moles/Vol] 12 mmol/L Normal 10-20 [facility] Comment on above: Performed By: #### 2 4321-2 #### ELIZABETH Yadav ([id number]) [facility] ([facility]) [address] [place] [address] Calcium [Mass/Vol] 8.9 mg/dL Normal 8.6-10.6 [facility] Comment on above: Performed By: #### 2 4321-2 #### ELIZABETH RIOS L ([id number]) [facility] ([facility]) [address] [place] [address] Chloride [Moles/Vol] 106 mmol/L Normal 98-107 [facility] Comment on above: Performed By: #### 2 4321-2 #### ELIZABETH Yadav ([id number]) [facility] ([facility]) [address] [place] [address] CO2 [Moles/Vol] 23 mmol/L Normal 21-32 [facility] Comment on above: Performed By: #### 2 4321-2 #### ELIZABETH Yadav ([id number]) [facility] ([facility]) [address] [place] [address] Creatinine [Mass/Vol] 0.90 mg/dL Normal 0.50-1.30 [facility] Comment on above: Performed By: #### 2 4321-2 #### ELIZABETH Yadav ([id number]) [facility] ([facility]) [address] [place] [address] Glomerular filtration rate/1.73 sq M.predicted 87 mL/min/1.73m*2 Normal >60 [facility] Comment on above: Result Comment: Calc ulations of estimated GFR are performed using the 2020 CKD-EPI Study Refit equation without the race variable for the IDMS-Traceable creatinine methods. https://jasn.asnjournals.org/content//ASN.624 7809106 Performed By: #### 2 4321-2 #### ELIZABETH Yadav ([id number]) [facility] ([facility]) [address] [place] [address] Glucose [Mass/Vol] 112 mg/dL High 74-99 [facility] Comment on above: Performed By: #### 2 4321-2 #### ELIZABETH Yadav ([id number]) [facility] ([facility]) [address] [place] [address] Potassium [Moles/Vol] 4.1 mmol/L Normal 3.5-5.3 [facility] Comment on above: Performed By: #### 2 4321-2 #### ELIZABETH Yadav ([id number]) [facility] ([facility]) [address] [place] [address] Sodium [Moles/Vol] 137 mmol/L Normal 136-145 [facility] Comment on above: Performed By: #### 2 4321-2 #### ELIZABETH Yadav ([id number]) [facility] ([facility]) [address] [place] [address] Urea nitrogen [Mass/Vol] 20 mg/dL Normal 6-23 [facility] Comment on above: Performed By: #### 2 4321-2 #### ELIZABETH Yadav ([id number]) [facility] ([facility]) [address] [place] [address] CBC panel Auto (Bld)on 08-06 Erythrocyte distribution width (RBC) [Ratio] 13.4 % 11.5 - 14.5 % [facility] Hematocrit (Bld) [Volume fraction] 40.1 % Low 41.0 - 52.0 % [facility] Hemoglobin (Bld) [Mass/Vol] 12.3 g/dL Low 13.5 - 17.5 g/dL [facility] Interpretation and review of laboratory results Abnormal [facility] MCH (RBC) [Entitic mass] 30.9 pg 26. 0 - 34.0 pg [facility] MCHC (RBC) [Mass/Vol] 30.7 g/dL Low 32.0 - 36.0 g/dL [facility] MCV (RBC) [Entitic vol] 101 fL High 80 - 100 fL [facility] Nucleated RBC/100 WBC (Bld) [Ratio] 0 % [facility] Platelets (Bld) [#/Vol] 146 10*3/uL Low [facility] RBC (Bld) [#/Vol] 3.98 10*6/uL [facility] WBC (Bld) [#/Vol] 11 10*3/uL [facility] Erythrocyte distribution width (RBC) [Ratio] 13.4 % Normal 11.5-14.5 [facility] Comment on above: Performed By: #### 5 8410-2 #### ELIZABETH Yadav ([id number]) [facility] ([facility]) [address] [place] [address] Hematocrit (Bld) [Volume fraction] 40.1 % Low 41.0-52.0 [facility] Comment on above: Performed By: #### 5 8410-2 #### ELIZABETH Yadav ([id number]) [facility] ([facility]) [address] [place] [address] Hemoglobin (Bld) [Mass/Vol] 12.3 g/dL Low 13.5-17.5 [facility] Comment on above: Performed By: #### 5 8410-2 #### ELIZABETH Yadav ([id number]) [facility] ([facility]) [address] [place] [address] MCH (RBC) [Entitic mass] 30.9 pg Normal 26.0-34.0 [facility] Comment on above: Performed By: #### 5 8410-2 #### ELIZABETH Yadav ([id number]) [facility] ([facility]) [address] [place] [address] MCHC (RBC) [Mass/Vol] 30.7 g/dL Low 32.0-36.0 [facility] Comment on above: Performed By: #### 5 8410-2 #### ELIZABETH Yadav ([id number]) [facility] ([facility]) [address] [place] [address] MCV (RBC) [Entitic vol] 101 fL High 80-100 U [facility] Comment on above: Performed By: #### 5 8410-2 #### ELIZABETH Yadav ([id number]) [facility] ([facility]) [address] [place] [address] Nucleated RBC/100 WBC (Bld) [Ratio] 0.0 /100 WBCs Normal 0.0-0.0 [facility] Comment on above: Performed By: #### 5 8410-2 #### ELIZABETH Yadav ([id number]) [facility] ([facility]) [address] [place] [address] Platelets (Bld) [#/Vol] 146 x10*3/uL Low 150-450 [facility] Comment on above: Performed By: #### 5 8410-2 #### ELIZABETH Yadav ([id number]) [facility] ([facility]) [address] [place] [address] RBC (Bld) [#/Vol] 3.98 x10*6/uL Low 4.50-5.90 [facility] Comment on above: Performed By: #### 5 8410-2 #### ELIZABETH RIOS L ([id number]) [facility] ([facility]) [address] [place] [address] WBC (Bld) [#/Vol] 11.0 x10*3/uL Normal 4.4-11.3 [facility] Comment on above: Performed By: #### 5 8410-2 #### ELIZABETH RIOS L ([id number]) [facility] ([facility]) [address] [place] [address] XR tomography Mandible Panor amicon 08-06-2024 Postsurgical changes in the right aspect of the mandible with intact hardware. MACRO: None Signed by: Aydin Grigsby 08/06/2024 8:33 AM Dictation workstation: [id number] [facility] Interpreted By: Aydin Grigsby, STUDY: XR PANOREX; ; 08/05/2024 9:53 pm INDICATION: Signs/Symptoms:Post- op evaluation. COMPARISON: None. ACCESSION NUMBER(S): [id number] ORDERING CLINICIAN: JIMMY KULKARNI FINDINGS: Orthopantomogram, single view Postsurgical change in the right aspect of the mandible. The hardware is intact. Several teeth are missing. No periapical abscess seen. MMODAL Aydin Grigsby MD - 08/06/2024 Interpreted By: Aydin Grigsby, STUDY: XR PANOREX; ; 08/05/2024 9:53 pm INDICATION: Signs/Symptoms:Post- op evaluation. COMPARISON: None. ACCESSION NUMBER(S): [id number] ORDERING CLINICIAN: JIMMY KULAKRNI FINDINGS: Orthopantomogram, single view Postsurgical change in the right aspect of the mandible. The hardware is intact. Several teeth are missing. No periapical abscess seen. IMPRESSION: Postsurgical changes in the right aspect of the mandible with intact hardware. MACRO: None Signed by: Aydin Grigsby 08/06/2024 8:33 AM Dictation workstation: [id number] [facility] Work Phone: XR tomography Mandible Panor amicOrdered By: Aydin Grigsby on 08-06-2024 [facility] Work Phone: Bacteria identifiedon 2024 Bacteria identified Cx Nom (Unsp spec) Test: Tissue/Wound Culture/Smear Specimen Source: SOFT TISSUE BIOPSY Specimen Type: Swab Specimen Date: 08/05/20241127 Result Date: 08/09/2024 0951 Result Status: Final result Abnormal: Yes Resulting Lab: [facility] [address] [place] [address] CULTURE (4+) Abundant Staphylococcus epidermidis (Abnormal) (1+) Rare Mixed Gram-Positive Bacteria STAIN (1+) Rare Polymorphonuclear leukocytes (2+) Few Gram positive cocci SUSCEPTIBILITY Staphylococcus epidermidis METHOD MICROSCAN --------- --------- CLINDAMYCIN >4.000 ug/ml Resistant ERYTHROMYCIN 4 ug/ml Intermediate OXACILLIN <=0.25 ug/ml Susceptible TETRACYCLINE >8.000 ug/ml Resistant TRIMETHOPRIM/SULFAME THOXAZOLE <=0.5/9.5 ug/ml Susceptible VANCOMYCIN 1.000 ug/ml Susceptible Abnormal [facility] Comment on above: Performed By: #### 6 463-4 #### ELIZABETH Yadav ([id number]) [facility] ([facility]) [address] [place] [address] Fungus identifiedon 08-06-19 Fungus identified Cx Nom (Unsp spec) Test: Fungal Culture/Smear Specimen Source: SOFT TISSUE BIOPSY Specimen Type: Swab Specimen Date: 08/05/20241127 Result Date: 08/24/20241226 Result Status: Final result Resulting Lab: [facility] [address] [place] [address] CULTURE No fungi isolated. STAIN No fungal elements seen Normal [facility] Comment on above: Performed By: #### 5 80-1 #### ELIZABETH Yadav ([id number]) [facility] ([facility]) [address] [place] [address] Surgical pathology studyon 0 08-05-2024 Surgical pathology study Pathology report.total SEE COMMENT Surgical Pathology Case: [id number] Authorizing Provider: Jimmy Kulkarni DDS Collected: 08/05/2024 1215 Ordering Location: [facility] Received: 08/05/[address] [place] [address] OR Pathologist: Chas Huang DDS Specimens: A) - BONE RESECTION, RIGHT MANDIBULAR BONE B) - SOFT TISSUE RESECTION, REACTIVE MUCOSAL LESION C) - FISTULA, RIGHT SUBMENTAL FISTULA Path report.final diagnosis SEE COMMENT A. Mandible, right, excision: - Viable and nonviable bone with acute and chronic inflammation. B. Reactive mucosal lesion, excision: - Squamous mucosa with atypia (favor reactive) and acute and chronic inflammation. C. Right submental fistula, excision: - Skin with atypia (favor reactive), acute and chronic inflammation, and granulation tissue, consistent with fistula. Laboratory comment By the signature on this report, the individual or group listed as making the Final Interpretation/Diagn osis certifies that they have reviewed this case. Path report.relevant Hx SEE COMMENT Pre-op diagnosis: Fracture of Unspecified part of Body of Left Mandible, initial encounter for closed fracture [S02.602XA] Path report.gross observation SEE COMMENT A: Received in formalin, labeled with the patient's name, hospital number, and RIGHT MANDIBULAR BONE, are multiple segments of bone and attached pink soft tissue, aggregating to 1.5 x 1.3 x 0.3 cm. The specimen is entirely submitted in 2 cassettes, following decalcification. [facility] Summary of Sections: Specimen Label Site A 1 Bone 2 Soft tissue B: Received in formalin, labeled with the patient's name and hospital number and REACTIVE MUCOSAL LESION, is a single irregular segment of soft, partially mucosal-covered, godfrey-pink tissue measuring 1.5 x 0.8 x 0.5 cm. Sectioning reveals a hemorrhagic center, measuring up to 1.1 cm. The specimen is entirely submitted in one cassette. [facility] C: Received in formalin, labeled with the patient's name and hospital number and RIGHT SUBMENTAL FISTULA, is an unoriented elliptical segment of godfrey-pink to david, hair-bearing skin with underlying soft tissue measuring 3.0 x 1.8 x 1.4 cm. On the skin surface is a hole resembling the fistula tract extending through the subcutaneous tissue measuring 1.5 cm in length. The resection margin is inked blue and the specimen is sectioned. [employer] sections are submitted in one cassette. [facility] Comment on above: Order Comment: Pre-o p diagnosis: Fracture of Unspecified part of Body of Left Mandible, initial encounter for closed fracture [S02.602XA] XR PANOREXon 08-05-2024 XR PANOREX Interpreted By: Aydin Grigsby, STUDY: XR PANOREX; ; 08/05/2024 9:53 pm INDICATION: Signs/Symptoms:Post- op evaluation. COMPARISON: None. ACCESSION NUMBER(S): [id number] ORDERING CLINICIAN: JIMMY KULKARNI FINDINGS: Orthopantomogram, single view Postsurgical change in the right aspect of the mandible. The hardware is intact. Several teeth are missing. No periapical abscess seen. IMPRESSION: Postsurgical changes in the right aspect of the mandible with intact hardware. MACRO: None Signed by: Aydin Grigsby 08/06/2024 8:33 AM Dictation workstation: [id number] [facility] XR tomography Mandible Panor amicon 08-05-2024 Radiology Study observation (narrative) [facility] Work Phone: Basic metabolic 2000 panelon 08-03-2024 Anion gap [Moles/Vol] 13 mmol/L Normal 10-20 [facility] Comment on above: Performed By: #### 2 4321-2 #### ELIZABETH PASTRANAMOTZER L ([id number]) [facility] ([facility]) [address] [place] [address] Calcium [Mass/Vol] 9.5 mg/dL Normal 8.6-10.6 [facility] Comment on above: Performed By: #### 2 4321-2 #### ELIZABETH SCHMOTZER L ([id number]) [facility] ([facility]) [address] [place] [address] Chloride [Moles/Vol] 107 mmol/L Normal 98-107 [facility] Comment on above: Performed By: #### 2 4321-2 #### ELIZABETH SCHMOTZER L ([id number]) [facility] ([facility]) [address] [place] [address] CO2 [Moles/Vol] 22 mmol/L Normal 21-32 [facility] Comment on above: Performed By: #### 2 4321-2 #### ELIZABETH PASTRANAMOTZER L ([id number]) [facility] ([facility]) [address] [place] [address] Creatinine [Mass/Vol] 1.09 mg/dL Normal 0.50-1.30 [facility] Comment on above: Performed By: #### 2 4321-2 #### ELIZABETH Yadav ([id number]) [facility] ([facility]) [address] [place] [address] Glomerular filtration rate/1.73 sq M.predicted 69 mL/min/1.73m*2 Normal >60 [facility] Comment on above: Result Comment: Calc ulations of estimated GFR are performed using the 2020 CKD-EPI Study Refit equation without the race variable for the IDMS-Traceable creatinine methods. https://jasn.asnjournals.org/content//ASN.835 0796251 Performed By: #### 2 4321-2 #### ELIZABETH RIOS L ([id number]) [facility] ([facility]) [address] [place] [address] Glucose [Mass/Vol] 123 mg/dL High 74-99 [facility] Comment on above: Performed By: #### 2 4321-2 #### ELIZABETH RIOS L ([id number]) [facility] ([facility]) [address] [place] [address] Potassium [Moles/Vol] 3.8 mmol/L Normal 3.5-5.3 [facility] Comment on above: Performed By: #### 2 4321-2 #### ELIZABETH PASTRANAMOTZER L ([id number]) [facility] ([facility]) [address] [place] [address]993 Sodium [Moles/Vol] 138 mmol/L Normal 136-145 [facility] Comment on above: Performed By: #### 2 4321-2 #### ELIZABETH PASTRANAMOTZBRITNEY L ([id number]) [facility] ([facility]) [id number] [place] [address] 89178 Urea nitrogen [Mass/Vol] 20 mg/dL Normal 6-23 [facility] Comment on above: Performed By: #### 2 4321-2 #### ELIZABETH PASTRANAMOTZER L ([id number]) [facility] ([facility]) [id number] [place] [address] 19642 CBC panel Auto (Bld)on 08-03 Erythrocyte distribution width (RBC) [Ratio] 13.3 % Normal 11.5-14.5 [facility] Comment on above: Performed By: #### 5 8410-2 #### ELIZABETH Yadav ([id number]) [facility] ([facility]) [id number] [place] [address] 63546 Hematocrit (Bld) [Volume fraction] 42.5 % Normal 41.0-52.0 [facility] Comment on above: Performed By: #### 5 8410-2 #### ELIZABETH Yadav ([id number]) [facility] ([facility]) [address] [place] [address] 92952 Hemoglobin (Bld) [Mass/Vol] 14.1 g/dL Normal 13.5-17.5 [facility] Comment on above: Performed By: #### 5 8410-2 #### ELIZABETH Yadav ([id number]) [facility] ([facility]) [address] [place] [address] 29630 MCH (RBC) [Entitic mass] 32.1 pg Normal 26.0-34.0 [facility] Comment on above: Performed By: #### 5 8410-2 #### ELIZABETH Yadav ([id number]) [facility] ([facility]) [id number] [place] [address] 52199 MCHC (RBC) [Mass/Vol] 33.2 g/dL Normal 32.0-36.0 [facility] Comment on above: Performed By: #### 5 8410-2 #### ELIZABETH Yadav ([id number]) [facility] ([facility]) [id number] [place] [address] 39584 MCV (RBC) [Entitic vol] 97 fL Normal 80-100 U [facility] Comment on above: Performed By: #### 5 8410-2 #### ELIZABETH Yadav ([id number]) [facility] ([facility]) [id number] [place] [address] 47033 Nucleated RBC/100 WBC (Bld) [Ratio] 0.0 /100 WBCs Normal 0.0-0.0 [facility] Comment on above: Performed By: #### 5 8410-2 #### ELIZABETH Yadav ([id number]) [facility] ([facility]) [address] [place] [address] Platelets (Bld) [#/Vol] 151 x10*3/uL Normal 150-450 [facility] Comment on above: Performed By: #### 5 8410-2 #### ELIZABETH RIOS L ([id number]) [facility] ([facility]) [address] [place] [address] RBC (Bld) [#/Vol] 4.39 x10*6/uL Low 4.50-5.90 [facility] Comment on above: Performed By: #### 5 8410-2 #### ELIZABETH BOYDER L ([id number]) [facility] ([facility]) [address] [place] [address] WBC (Bld) [#/Vol] 8.0 x10*3/uL Normal 4.4-11.3 [facility] Comment on above: Performed By: #### 5 8410-2 #### ELIZABETH RIOS L ([id number]) [facility] ([facility]) [address] [place] [address] CT FACIAL BONES WO IV CONTRA Parvinn 08-03-2024 CT FACIAL BONES WO IV CONTRAST Interpreted By: Erick Gates and Booth Cameron STUDY: CT FACIAL BONES WO IV CONTRAST 08/03/2024 10:51 am INDICATION: Signs/Symptoms:Pre-O perative evaluation for mandible fracture ,S02.601A Fracture of unspecified part of body of right mandible, initial encounter for closed fracture (Multi) COMPARISON: None. ACCESSION NUMBER(S): [id number] ORDERING CLINICIAN: JIMMY KULKARNI TECHNIQUE: Thin cut axial CT images through the facial bones were obtained and reconstructed in the coronal and sagittal plane. FINDINGS: Orbits: The bony orbits are intact. The orbital contents are unremarkable. Facial Bones: Comminuted, displaced and overriding fracture of the mandibular body on the right adjacent to the mental foramen. The fracture line extends through both the lingual and buccal cortices as well as into the distal aspect of the alveolar canal. Fracture line passes between the inferior right canine and lateral incisor teeth. The remainder of the mandible is intact. Mandible/Temporomand ibular Joints: Visualized portions of mandible and bilateral temporomandibular joints are intact and in normal alignment. Paranasal Sinuses/Mastoids: Visualized paranasal sinuses and mastoids are clear. Soft tissues: Within the subcutaneous tissue superficial to the fracture site there is a small hematoma measuring up to 3.0 x 0.7 cm (series 202, image 148) and scattered air foci. Several prominent, subcentimeter submandibular lymph nodes are present, likely reactive in etiology. IMPRESSION: Comminuted, displaced and overriding fracture of the mandibular body on the right with extension into the distal alveolar canal, fracture line passing between the inferior right canine and lateral incisor teeth. No associated temporomandibular joint malalignment. Subcutaneous hematoma overlying the fracture site as detailed above. I personally reviewed the images/study and I agree with the findings as stated. This study was interpreted at [place], [place]. MACRO: None Signed by: Erick Gates 08/04/2024 7:17 AM Dictation workstation: [id number] Normal [facility] ECG 12-LEADon 08-03-2024 ECG 12-LEAD Ventricular Rate 89 Atrial Rate 89 P-R Interval 166 QRS Duration 84 Q-T Interval 348 QTC Calculation(Bazett) 423 P [place] 35 R [place] -12 T [place] 28 QRS Count 15 Q Onset 213 P Onset 130 P Offset 188 T Offset 387 QTC Fredericia 396 Diagnosis Normal sinus rhythm Possible Anterior infarct , age undetermined Abnormal ECG No previous ECGs available Confirmed by Desmond Mccann ([id number]) on 08/03/2024 11:33:47 PM Normal [facility] PT and aPTT panel Coag (PPP) on 08-03-2024 aPTT Coag (PPP) [Time] 24 s Low 26-36 Un [facility] Comment on above: Order Comment: The A PTT is no longer used for monitoring Unfractionated Heparin Therapy. For monitoring Heparin Therapy, use the Heparin Assay. Performed By: #### 3 4529-8 #### ELIZABETH Yadav ([id number]) [facility] ([facility]) [id number] [place] [address] 46573 INR Coag (PPP) [Relative time] 1.1 Normal 0.9-1.1 [facility] Comment on above: Order Comment: The A PTT is no longer used for monitoring Unfractionated Heparin Therapy. For monitoring Heparin Therapy, use the Heparin Assay. Performed By: #### 3 4529-8 #### ELIZABETH Yadav ([id number]) [facility] ([facility]) [id number] [place] [address] 43859 PT Coag (PPP) [Time] 12.3 s Normal 9.8-12.4 [facility] Comment on above: Order Comment: The A PTT is no longer used for monitoring Unfractionated Heparin Therapy. For monitoring Heparin Therapy, use the Heparin Assay. Performed By: #### 3 4529-8 #### ELIZABETH Yadav ([id number]) [facility] ([facility]) [address] [place] [address] CERVICAL SPINE WO IV CONT [facility] 06-14-2024 CT CERVICAL SPINE WO IV CONTRAST [facility]: SEE PARIS : 1945 [id number] Exam Date/Time: 06/14/2024 10:50 Procedure: CT CERVICAL SPINE WO IV CONTRAST Ordering Provider: SUN MEJGON Reason For Exam: fall on thinners, jaw pain left Indication: Trauma Comparison date: No comparison. FINDINGS: Dose reduction was employed with automated exposure control.3 mm unenhanced imaging of the brain performed. Images viewed in multiple orthogonal planes. Limited by motion, streak artifact. There is no definite acute edema, midline shift, acute hemorrhage, or findings to suggest high likelihood of large acute infarct, within limits of the study. MRI more specific/sensitive. No convincing abnormal extra-axial fluid collections visualized. Bony structures:Unremarka ble as seen. CSF spaces are not convincingly abnormal. Orbits within normal limits. Review of the paranasal sinuses shows no air-fluid levels. IMPRESSION: No acute brain process identified. Facial fracture. CT cervical spine: Indication: Trauma and neck pain FINDINGS: Dose reduction was employed with automated exposure control. Unenhanced cervical spine performed. 3-D imaging created and reviewed on independent 3-D workstation for better detection of pathology evaluation of neural foramina. Limited by motion. Bone :Fracture left maxillary sinus posterior wall. Acute lesions: No acute fracture or dislocation. Soft tissues: No soft tissue swelling. Arthritis: Degenerative changes visible. Posterior osteophytes cause neural foraminal narrowing. Limited views of skull base unremarkable. Visualized portions of lung apices Show no major volume loss.. IMPRESSION: No acute process of the cervical spine. Report Dictated on Electronically Signed By: Carlos Franco MD Electronically Signed Date/Time: 06/14/2024 11:20 AM EST c/o a fall around 0930 this am. Patient was walking out his back door and slipped on the ice, landing on his face. Patient takes Xarelto. Patient reports jaw, mouth, and neck pain Normal [facility] CT Cervical spine WO contras ton 06-14-2024 Patient Name: SEE PARIS : 1945 Exam Date/Time: 06/14/2024 10:50 Procedure: CT CERVICAL SPINE WO IV CONTRAST Ordering Provider: SUN MEJGON Reason For Exam: fall on thinners, jaw pain left Indication: Trauma Comparison date: No comparison. FINDINGS: Dose reduction was employed with automated exposure control.3 mm unenhanced imaging of the brain performed. Images viewed in multiple orthogonal planes. Limited by motion, streak artifact. There is no definite acute edema, midline shift, acute hemorrhage, or findings to suggest high likelihood of large acute infarct, within limits of the study. MRI more specific/sensitive. No convincing abnormal extra-axial fluid collections visualized. Bony structures:Unremarka ble as seen. CSF spaces are not convincingly abnormal. Orbits within normal limits. Review of the paranasal sinuses shows no air-fluid levels. [facility] Carlos Franco MD - 06/14/2024 Patient Name: SEE PARIS : 1945 Exam Date/Time: 06/14/2024 10:50 Procedure: CT CERVICAL SPINE WO IV CONTRAST Ordering Provider: SUN MEJGON Reason For Exam: fall on thinners, jaw pain left Indication: Trauma Comparison date: No comparison. FINDINGS: Dose reduction was employed with automated exposure control.3 mm unenhanced imaging of the brain performed. Images viewed in multiple orthogonal planes. Limited by motion, streak artifact. There is no definite acute edema, midline shift, acute hemorrhage, or findings to suggest high likelihood of large acute infarct, within limits of the study. MRI more specific/sensitive. No convincing abnormal extra-axial fluid collections visualized. Bony structures:Unremarka ble as seen. CSF spaces are not convincingly abnormal. Orbits within normal limits. Review of the paranasal sinuses shows no air-fluid levels. IMPRESSION: No acute brain process identified. Facial fracture. CT cervical spine: Indication: Trauma and neck pain FINDINGS: Dose reduction was employed with automated exposure control. Unenhanced cervical spine performed. 3-D imaging created and reviewed on independent 3-D workstation for better detection of pathology evaluation of neural foramina. Limited by motion. Bone :Fracture left maxillary sinus posterior wall. Acute lesions: No acute fracture or dislocation. Soft tissues: No soft tissue swelling. Arthritis: Degenerative changes visible. Posterior osteophytes cause neural foraminal narrowing. Limited views of skull base unremarkable. Visualized portions of lung apices Show no major volume loss.. IMPRESSION: No acute process of the cervical spine. Report Dictated on Electronically Signed By: Carlos Franco MD Electronically Signed Date/Time: 06/14/2024 11:20 AM EST [facility] Radiology Study observation (narrative) [facility]ai alth CT HEAD WO IV CONTRASTon CT HEAD WO IV CONTRAST Patient Name: SEE PARIS : 1945 Exam Date/Time: 06/14/2024 10:50 Procedure: CT HEAD WO IV CONTRAST Ordering Provider: SUN MEJGON Reason For Exam: fall on thinners, jaw pain left Indication: Trauma Comparison date: No comparison. FINDINGS: Dose reduction was employed with automated exposure control.3 mm unenhanced imaging of the brain performed. Images viewed in multiple orthogonal planes. Limited by motion, streak artifact. There is no definite acute edema, midline shift, acute hemorrhage, or findings to suggest high likelihood of large acute infarct, within limits of the study. MRI more specific/sensitive. No convincing abnormal extra-axial fluid collections visualized. Bony structures:Unremarka ble as seen. CSF spaces are not convincingly abnormal. Orbits within normal limits. Review of the paranasal sinuses shows no air-fluid levels. IMPRESSION: No acute brain process identified. Facial fracture. CT cervical spine: Indication: Trauma and neck pain FINDINGS: Dose reduction was employed with automated exposure control. Unenhanced cervical spine performed. 3-D imaging created and reviewed on independent 3-D workstation for better detection of pathology evaluation of neural foramina. Limited by motion. Bone :Fracture left maxillary sinus posterior wall. Acute lesions: No acute fracture or dislocation. Soft tissues: No soft tissue swelling. Arthritis: Degenerative changes visible. Posterior osteophytes cause neural foraminal narrowing. Limited views of skull base unremarkable. Visualized portions of lung apices Show no major volume loss.. IMPRESSION: No acute process of the cervical spine. Report Dictated on Electronically Signed By: Carlos Franco MD Electronically Signed Date/Time: 06/14/2024 11:20 AM EST c/o a fall around 0930 this am. Patient was walking out his back door and slipped on the ice, landing on his face. Patient takes Xarelto. Patient reports jaw, mouth, and neck pain Normal [facility] CT Head WO contraston 2024 Patient Name: SEE PARIS : 1945 Exam Date/Time: 06/14/2024 10:50 Procedure: CT HEAD WO IV CONTRAST Ordering Provider: SUN MEJGON Reason For Exam: fall on thinners, jaw pain left Indication: Trauma Comparison date: No comparison. FINDINGS: Dose reduction was employed with automated exposure control.3 mm unenhanced imaging of the brain performed. Images viewed in multiple orthogonal planes. Limited by motion, streak artifact. There is no definite acute edema, midline shift, acute hemorrhage, or findings to suggest high likelihood of large acute infarct, within limits of the study. MRI more specific/sensitive. No convincing abnormal extra-axial fluid collections visualized. Bony structures:Unremarka ble as seen. CSF spaces are not convincingly abnormal. Orbits within normal limits. Review of the paranasal sinuses shows no air-fluid levels. [facility] Carlos Franco MD - 06/14/2024 [facility] Name: SEE PARIS : 1945 [id number] Exam Date/Time: 06/14/2024 10:50 Procedure: CT HEAD WO IV CONTRAST Ordering Provider: SUN MEJGON Reason For Exam: fall on thinners, jaw pain left Indication: Trauma Comparison date: No comparison. FINDINGS: Dose reduction was employed with automated exposure control.3 mm unenhanced imaging of the brain performed. Images viewed in multiple orthogonal planes. Limited by motion, streak artifact. There is no definite acute edema, midline shift, acute hemorrhage, or findings to suggest high likelihood of large acute infarct, within limits of the study. MRI more specific/sensitive. No convincing abnormal extra-axial fluid collections visualized. Bony structures:Unremarka ble as seen. CSF spaces are not convincingly abnormal. Orbits within normal limits. Review of the paranasal sinuses shows no air-fluid levels. IMPRESSION: No acute brain process identified. Facial fracture. CT cervical spine: Indication: Trauma and neck pain FINDINGS: Dose reduction was employed with automated exposure control. Unenhanced cervical spine performed. 3-D imaging created and reviewed on independent 3-D workstation for better detection of pathology evaluation of neural foramina. Limited by motion. Bone :Fracture left maxillary sinus posterior wall. Acute lesions: No acute fracture or dislocation. Soft tissues: No soft tissue swelling. Arthritis: Degenerative changes visible. Posterior osteophytes cause neural foraminal narrowing. Limited views of skull base unremarkable. Visualized portions of lung apices Show no major volume loss.. IMPRESSION: No acute process of the cervical spine. Report Dictated on Electronically Signed By: Carlos Franco MD Electronically Signed Date/Time: 06/14/2024 11:20 AM [facility] Radiology Study observation (narrative) [facility] CT MAXILLOFACIAL WO IV CONTR Suzette 06-14-2024 CT MAXILLOFACIAL WO IV CONTRAST Patient Name: SEE PARIS : 1945 Exam Date/Time: 06/14/2024 10:50 Procedure: CT MAXILLOFACIAL WO IV CONTRAST Ordering Provider: SUN MEJGON Reason For Exam: fall on thinners, jaw pain left Indication: Trauma.. Comparison none FINDINGS: Dose reduction was employed with automated exposure control. Unenhanced maxillofacial series performed. 2 mm slices were reviewed in multiple orthogonal planes. 1 mm slices reviewed in transaxial plane. 3-D imaging created and reviewed on independent 3-D workstation. Orbits intact. Acute fracture posterior wall left maxillary sinus.. Mandible intact.. Sinuses are clear. No mastoiditis. No mandible dislocation. IMPRESSION: Fracture left maxilla. Report Dictated on Electronically Signed By: Carlos Franco MD Electronically Signed Date/Time: 06/14/2024 11:24 AM [facility] c/o a fall around 0930 this am. Patient was walking out his back door and slipped on the ice, landing on his face. Patient takes Xarelto. Patient reports jaw, mouth, and neck pain Normal [facility] CT Maxillofacial region WO a nd W contrast Joan 06-14-2024 Fracture left maxilla. Report Dictated on Electronically Signed By: Carlos Franco MD Electronically Signed Date/Time: 06/14/2024 11:24 AM [facility] Patient Name: SEE PARIS : 1945 Exam Date/Time: 06/14/2024 10:50 Procedure: CT MAXILLOFACIAL WO IV CONTRAST Ordering Provider: SUN MEJGON Reason For Exam: fall on thinners, jaw pain left Indication: Trauma.. Comparison none FINDINGS: Dose reduction was employed with automated exposure control. Unenhanced maxillofacial series performed. 2 mm slices were reviewed in multiple orthogonal planes. 1 mm slices reviewed in transaxial plane. 3-D imaging created and reviewed on independent 3-D workstation. Orbits intact. Acute fracture posterior wall left maxillary sinus.. Mandible intact.. Sinuses are clear. No mastoiditis. No mandible dislocation. [facility] Carlos Franco MD - 06/14/2024 Patient Name: SEE PARIS : 1945 [id number] Exam Date/Time: 06/14/2024 10:50 Procedure: CT MAXILLOFACIAL WO IV CONTRAST Ordering Provider: SUN MEJGON Reason For Exam: fall on thinners, jaw pain left Indication: Trauma.. Comparison none FINDINGS: Dose reduction was employed with automated exposure control. Unenhanced maxillofacial series performed. 2 mm slices were reviewed in multiple orthogonal planes. 1 mm slices reviewed in transaxial plane. 3-D imaging created and reviewed on independent 3-D workstation. Orbits intact. Acute fracture posterior wall left maxillary sinus.. Mandible intact.. Sinuses are clear. No mastoiditis. No mandible dislocation. IMPRESSION: Fracture left maxilla. Report Dictated on Electronically Signed By: Carlos Franco MD Electronically Signed Date/Time: 06/14/2024 11:24 AM EST [facility] Radiology Study observation (narrative) [facility] ED Nursing Noteon 06-14-2024 ED Nursing Note Patient to room 3 with c/o a fall around 0930 this am. Patient was walking out his back door and slipped on the ice, landing on his face. Patient takes Xarelto. Patient reports jaw, mouth, and neck pain. V/S obtained, call light within reach. Normal [facility] ED Provider Noteon ED Provider Note EMERGENCY DEPARTMENT ENCOUNTER Pt Name: See Paris Birthdate 1945 Date of evaluation: 06/14/2024 ED Provider: Arpan Sun DO CHIEF COMPLAINT Chief Complaint Patient presents with Fall Facial Injury HISTORY OF PRESENT ILLNESS (Location/Symptom, Timing/Onset, Context/Setting, Quality, Duration, Modifying Factors, Severity) Note limiting factors. I wore appropriate PPE for the entirety of this encounter. HPI See Paris is a 79 y.o. who presents to the emergency department with chief complaint of fall. Patient slipped on the ice this morning and fell forward. Sustained a dental injury and is endorsing neck pain as well as left-sided jaw pain. No loss of consciousness. He is on Xarelto. Denies other injuries. Nursing Notes were reviewed. Limitations to history: None Outside historians: None REVIEW OF SYSTEMS Review of Systems Pertinent positives and negatives as per HPI. PAST MEDICAL HISTORY Past Medical History: Diagnosis Date Cancer (CMS/HCC) (HCC) Diverticula, colon Hypertension Reflex abnormality SURGICAL HISTORY Past Surgical History: Procedure Laterality Date KNEE SURGERY PROSTATECTOMY SHOULDER SURGERY CURRENT MEDICATIONS Current Discharge Medication List CONTINUE these medications which have NOT CHANGED Details amitriptyline (Elavil) 10 MG tablet Take 2 tablets (20 mg) by mouth every evening. TAKE 1 TAB BY MOUTH AT SUPPERTIME FOR 7 DAYS, THEN TAKE 2 TABS BY MOUTH SUPPERTIME THEREAFTER Qty: 60 tablet, Refills: 2 Associated Diagnoses: New daily persistent headache amLODIPine (Norvasc) 2.5 MG tablet Take 2 mg by mouth daily. Calcium Carb-Cholecalciferol (CALCIUM/VITAMIN D PO) Take by mouth. Cholecalciferol (VITAMIN D3 PO) Take by mouth daily. megestrol (Megace) 20 MG tablet Take by mouth daily. omeprazole (PriLOSEC) [address] capsule Take 20 mg by mouth every morning (before breakfast). Do not crush or chew. rivaroxaban (Xarelto) 15 MG tablet Take 1 tablet (15 mg) by mouth in the morning and 1 tablet (15 mg) before bedtime. Do all this for 21 days. Qty: 42 tablet, Refills: 0 ALLERGIES Oxycodone, Floxin otic [ofloxacin], Hydrocodone, Morphine, and Percocet [oxycodone-acetamino phen] FAMILY HISTORY Family History Problem Relation Name Age of Onset Cancer Father SOCIAL HISTORY Social History Socioeconomic History Marital status: Tobacco Use Smoking status: Former Smokeless tobacco: Never Vaping Use Vaping status: Never Used Substance and Sexual Activity Alcohol use: Never Drug use: No SCREENINGS PHYSICAL EXAM ED Triage Vitals [06/14/24 1041] Temp Heart Rate Resp BP 36.7 ?C (98.1 ?F) 64 16 (!) 154/61 SpO2 Temp src Heart Rate Source Patient Position 99 % -- Monitor -- BP Location FiO2 (%) -- -- Physical Exam Vitals and nursing note reviewed. Constitutional: General: He is not in acute distress. Appearance: He is well-developed. He is not ill-appearing or toxic-appearing. HENT: Head: Normocephalic and atraumatic. Nose: Nose normal. Comments: Midface is stable. No nasal septal hematoma. Mouth/Throat: Mouth: Mucous membranes are moist. Pharynx: Oropharynx is clear. Comments: Bleeding gum around tooth #26/27. Tenderness of the left mandible. No tongue lacerations. Eyes: Conjunctiva/sclera: Conjunctivae normal. Cardiovascular: Pulses: Normal pulses. Pulmonary: Effort: Pulmonary effort is normal. No respiratory distress. Abdominal: General: There is no distension. Palpations: Abdomen is soft. Tenderness: There is no abdominal tenderness. Musculoskeletal: General: No swelling. Normal range of motion. Cervical back: Normal range of motion and neck supple. Tenderness (generalized cervical) present. Comments: Pelvis stable. No hip tenderness of the lateral. No midline spinal tenderness of the thoracic or lumbar spine. Skin: General: Skin is warm and dry. Capillary Refill: Capillary refill takes less than 2 seconds. Neurological: General: No focal deficit present. Mental Status: He is alert. Mental status is at baseline. DIAGNOSTIC RESULTS RADIOLOGY (Per Emergency Physician): Interpretation per the Radiologist below, if available at the time of this note: CT cervical spine wo IV contrast Final Result No acute brain process identified. Facial fracture. CT cervical spine: Indication: Trauma and neck pain FINDINGS: Dose reduction was employed with automated exposure control. Unenhanced cervical spine performed. 3-D imaging created and reviewed on independent 3-D workstation for better detection of pathology evaluation of neural foramina. Limited by motion. Bone :Fracture left maxillary sinus posterior wall. Acute lesions: No acute fracture or dislocation. Soft tissues: No soft tissue swelling. Arthritis: Degenerative changes visible. Posterior osteophytes cause neural foraminal narrowing. Limited views of skull base unr (more content not included)... Normal [facility] No Panel Informationon 06-14 No acute brain process identified. Facial fracture. CT cervical spine: Indication: Trauma and neck pain FINDINGS: Dose reduction was employed with automated exposure control. Unenhanced cervical spine performed. 3-D imaging created and reviewed on independent 3-D workstation for better detection of pathology evaluation of neural foramina. Limited by motion. Bone :Fracture left maxillary sinus posterior wall. Acute lesions: No acute fracture or dislocation. Soft tissues: No soft tissue swelling. Arthritis: Degenerative changes visible. Posterior osteophytes cause neural foraminal narrowing. Limited views of skull base unremarkable. Visualized portions of lung apices Show no major volume loss.. IMPRESSION: No acute process of the cervical spine. Report Dictated on Electronically Signed By: Carlos Franco MD Electronically Signed Date/Time: 06/14/2024 11:20 AM [facility] BTC Trip RADIOLOGY SYSTEM No Panel InformationOrdered By: Carlos Franoc on 06-14-2024 [facility] Phone: CNGame Nationon 03-11-2024 CNOV Office Visit (UROLAE) SEE PARIS ([id number]) 1945 M Date Time Provider Department 03/11/24 1:30 PM MARY GONZALEZ During your visit today, we recorded the following information about you: Pulse Weight Height 86/minute 88.5 kg 1.778 m Mary Gonzalez MD 09/14/2024 1:01 PM Addendum ESTABLISHED PATIENT OFFICE VISIT HISTORY OF PRESENT ILLNESS No chief complaint on file. 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 RESULTS Creatinine Date Value Ref Range Status 01/18/2019 1.10 0.67 - 1.17 mg/dL Final PSA Date Value 03/02/2024 0.64 ng/mL 11/11/2023 1.18 ng/mL 07/22/2023 4.4 ng/mL 04/08/2023 2.3 ng/mL 06/18/2022 0.32 ng/mL 07/12/2021 4.5 ng/mL 03/27/2021 3.7 ng/mL 11/18/2020 2.4 ng/mL 07/12/2020 2.4 ng/mL 02/22/2020 1.8 ng/mL 10/27/2019 1.4 NG/ML Color (no units) Date Value 01/17/2019 YELLOW Glucose, Urine (mg/dL) Date Value 01/17/2019 NEGATIVE Bilirubin, Urine (no units) Date Value 01/17/2019 NEGATIVE Ketones, Urine (mg/dL) Date Value 01/17/2019 NEGATIVE Specific [place], Ur (no units) Date Value 01/17/2019 1.020 pH, Urine (no units) Date Value 01/17/2019 8.5 Protein, Urine (mg/dL) Date Value 01/17/2019 NEGATIVE Nitrites Urine (no units) Date Value 01/17/2019 NEGATIVE Leukocytes Esterase (no units) Date Value 01/17/2019 NEGATIVE ALLERGIES Allergen Reactions Morphine Other: See Comments Ofloxacin Other: See Comments Percocet [Oxycodone* Unknown MEDICATIONS: megestrol (MEGACE) 20 mg tablet Take 1 tablet (20 mg) by mouth two times a day. amitriptyline (ELAVIL) 10 mg tablet TAKE 1 TAB BY MOUTH AT SUPPERTIME FOR 7 DAYS, THEN TAKE 2 TABS BY MOUTH SUPPERTIME THEREAFTER rivaroxaban (XARELTO) 20 mg tablet Take 20 mg by mouth daily with dinner. bicalutamide (CASODEX) 50 mg tablet TAKE 1 TABLET BY MOUTH EVERY DAY omega 5-lmv-gxq-fish oil (FISH OIL) 100-160-1,000 mg cap Take by mouth. meclizine (ANTIVERT) 25 mg tab Take 1 tablet by mouth three times daily as needed. ondansetron orally disintegrating (ZOFRAN ODT) 4 mg disintegrating tablet Take 1 tablet by mouth every 8 hours as needed. Cholecalciferol, Vitamin D3, 1,000 unit cap Take 1,000 Units by mouth once daily. calcium carbonate (CALTRATE) 600 mg calcium (1,500 mg) tab Take 1 tablet by mouth once daily. TURMERIC-HERBAL COMPLEX NO.278 ORAL Take 1 tablet by mouth once daily. amLODIPine (NORVASC) 5 mg tablet Take 5 mg by mouth once daily. doxazosin (CARDURA) 2 mg tablet Take 2 mg by mouth daily at bedtime. omeprazole (PRILOSEC) 20 mg capsule Take 40 mg by mouth daily at bedtime. REVIEW OF SYSTEMS GENERAL:no unintentional weight loss, malaise or fevers. NEUROLOGIC: pt is alert and oriented GENITOURINARY: Positive for BPH The remainder of the ROS was reviewed and is negative. HISTORIES PAST MEDICAL HISTORY Diagnosis Date Arthritis Elevated PSA GERD (gastroesophageal reflux disease) Melanoma (HCC) Prostate cancer (HCC) No family history on file. PAST SURGICAL HISTORY Procedure Laterality Date LAPS PROSTECT RETROPUBIC RAD W/NRV SPARING ROBOT MELANOMA OF SKIN EXCISION SYN RPT PAST SURGICAL HISTORY OF removal of skin cancer from nose TOTAL HIP REPLACEMENT 09/04/2022 SOCIAL HISTORY Social History Tobacco Use Smoking status: Never Smokeless tobacco: Never Vaping Use Vaping status: Never Used Substance Use Topics Alcohol use: Yes Comment: once monthly Drug use: No PHYSICAL EXAMINATION General appearance: Well appearing, alert, in no acute distress, well-hydrated, well nourished Psych Alert and oriented to person, place and time Respiratory: no wheezing or rhonchi Genitourinary: MALE EXAM: Exam NOT Indicated 09/08/2024 PSA 1.7, test 490 03/02/2024 PSA 0.6 11/11/2023 PSA 1.2 09/05/2023 Lupron 08/22/2023 PSMA PET 0.4cm area uptake in prostatectomy bed 07/22/2023 PSA 4.4 06/18/2022 PSA 0.3 12/12/2021 Lupron 10/27/2021 PSA 2.0 07/28/2021 PSMA PET ++ two <1cm areas right pelvic fossa suspicious 07/12/2021 PSA 4.5 11/18/2020 PSA 2.4 07/12/2020 PSA 2.4 02/23/2020 PSA 1.8 10/27/2019 PSA 1.4 08/25/2019 PSA 1.7 10/20/2018 PSA 1.1 10/15/2017 PSA 0.6 07/30/2016: PSA: 0.4 01/16/2016: PSA: 0.3 07/12/2015: PSA: 0.3 01/03/2015: PSA: 0.29 09/13/2014: salvage IMRT complete 07/08/2014: PSA: 0.27 06/14/2014: PSA: 0.29 02/17/2014: PSA: 0.20 08/21/2013: PSA: 0.15 02/05/2008: PSA: 0.1 01/15/2008: PSA: 0.12 12/02/2007: RALP Gl 7, neg margins 06/10/2007: PSA: 6.3 (PROSCAR) Assessment and Plan: BPH/LUTS- nocturia 2-4x, no hematuria/dysuria, freq Q 2h, no urgency or leak LBP- chronic, gets steroid injection Q 3 mths ED- weak erections and looses quickly, no help with PO pills in past Prostate cancer- s/p RALP followed salvage IMRT, he previously refused oncolog (more content not included)... Normal [facility] Office Visiton 08-21-2023 Follow-up visit [id number] See [place] 1945 M Date Provider Department Center 08/21/2023 [id number] DINH [facility] None Family History Problem Relation Age of Onset Cancer Father Family Status - Relation Status Age at Father Mother Level of Service:28077 [place] OFFICE/OUTPATIENT ESTABLISHED MOD MDM 30 MIN Reason for Visit and Comments: Follow-up [995111] Vertebral artery insufficiency [Other] Normal [facility] PATINSon 08-21-2023 PATINS Call [facility] Physical Therapy for PT with Maxwell Rose [phone] Normal [facility] Progress Noteon 08-21-2023 Progress Note Visit type: Established Patient Reason for Visit: Follow-up and Vertebral artery insufficiency Assessment and Plan 1. Cervico-occipital neuralgia - External referral to Physical Therapy 2. Vertigo - External referral to Physical Therapy 3. New daily persistent headache - amitriptyline (Elavil) 10 MG tablet; Take 2 tablets (20 mg) by mouth every evening. TAKE 1 TAB BY MOUTH AT SUPPERTIME FOR 7 DAYS, THEN TAKE 2 TABS BY MOUTH SUPPERTIME THEREAFTER, Starting Sat08/21/2023, Until Sat11/19/2023, Normal Subjective HPI: Patient presented new to office in Jun with c/o dizziness and neck pain for which he was receiving PT for; then developed frequent DARBY after receiving neck massages in PT. Was prescribed Pred taper and Amitriptyline 20mg at bedtime for headaches. Patient states the medication has helped resolve the headaches. No side effects. Still experiences occasional dizziness, but only with positon changes - when goes from lying to sitting Experiences neck pain only with turning head C/o constant blurred vision that started prior to all of this; due for eye exam. 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 No new neurological issues X-ray cervical spine 07/13- IMPRESSION: No acute osseous findings. Moderate multilevel cervical spondylosis with mild spinal instability at C4-5 and C5-6. CTA head neck 08/10- IMPRESSION: 1. No acute intracranial abnormality. Chronic microvascular change. 2. No significant stenosis, dissection, or aneurysm in the intracranial or extracranial circulation. REVIEW OF SYSTEMS: Review of Systems Constitutional: Negative. HENT: Negative. Eyes: Negative. Respiratory: Negative. Cardiovascular: Negative. Gastrointestinal: Negative. Endocrine: Negative. Genitourinary: Negative. Musculoskeletal: Positive for neck pain. Skin: Negative. Allergic/Immunologic : Negative. Neurological: Negative. Hematological: Negative. Psychiatric/Behavior al: Negative. Allergies Allergen Reactions Floxin Otic [Ofloxacin] Morphine Percocet [Oxycodone-Acetamino phen] Outpatient Medications Prior to Visit Medication Sig Dispense Refill amLODIPine (Norvasc) 2.5 MG tablet Take 2 mg by mouth daily. Calcium Carb-Cholecalciferol (CALCIUM/VITAMIN D PO) Take by mouth. Cholecalciferol (VITAMIN D3 PO) Take by mouth daily. megestrol (Megace) 20 MG tablet Take by mouth daily. omeprazole (PriLOSEC) [address] capsule Take 20 mg by mouth every morning (before breakfast). Do not crush or chew. rivaroxaban (Xarelto) 15 MG tablet Take 1 tablet (15 mg) by mouth in the morning and 1 tablet (15 mg) before bedtime. Do all this for 21 days. (Patient taking differently: Take 20 mg by mouth daily.) 42 tablet 0 amitriptyline (Elavil) 10 MG tablet Take 2 tablets (20 mg) by mouth every evening. TAKE 1 TAB BY MOUTH AT SUPPERTIME FOR 7 DAYS, THEN TAKE 2 TABS BY MOUTH SUPPERTIME THEREAFTER 180 tablet 0 No facility-administere d medications prior to visit. Past Medical History: Diagnosis Date Cancer (CMS/HCC) (HCC) Diverticula, colon Hypertension Reflex abnormality Social History Tobacco Use Smoking status: Former Smokeless tobacco: Never Substance Use Topics Alcohol use: Never Past Surgical History: Procedure Laterality Date KNEE SURGERY PROSTATECTOMY SHOULDER SURGERY Family History Problem Relation Name Age of Onset Cancer Father Objective Vitals: BP (!) 173/78 (BP Location: Right arm, Patient Position: Sitting, BP Cuff Size: Adult) Pulse 76 Ht 5' 10 (1.778 m) Wt 214 lb (97.1 kg) BMI 30.71 kg/m? General Appearance: Patient is in no apparent distress. Head is normocephalic, atraumatic Cardiovascular: Regular rate and rhythm. No heart murmurs. No carotid bruit Neurologic: Mentation: Alert and oriented x 3 [address], place and time. Speech and Language: Speech and language normal Concentration and Attention: Concentration normal Memory: Memory normal Fund of Knowledge: Fund of knowledge normal Cranial Nerves: II, III, IV, V, , VII, VIII, IX, X, XI, XII examined and were intact. Motor: Strength: Strength 5 out of 5 with normal tone Alternating Movements: Normal Cogwheel Rigidity: None Tone: Tone is normal Tremor / Involuntary Movements: None Deep Tendon Reflexes: 1 out of 4 symmetrical in all four limbs. Sensory: Normal sensation upper and lower extremities Coordination: Normal coordination upper and lower extremities Gait and Station: Station is normal. Gait is normal Data Reviewed and Summarized DIAGNOSTIC TESTING CBC: Lab Results Component Value Date WBC 10.0 10/02/2021 RBC 4.40 10/02/2021 HGB 14.2 10/02/2021 MCV 92.3 10/02/2021 MCH 32.3 10/02/2021 MCHC 35.0 10/02/2021 RDW 12.7 10/02/2021 MPV 8.8 10/02/2021 CMP: Lab Results Component Value Date NA 138 10/02/2021 K 4.7 10/02/2021 CL 107 10/02/2021 CO2 22 10/02/2021 BUN 18 (H) 10/02/2021 CREATININE 1.26 (more content not included)... Normal [facility] CT HEAD NECK ANGIO W AND WO IV CONTRASTon 08-16-2023 CT HEAD NECK ANGIO W AND WO IV CONTRAST [facility] [place] : 1945 [id number] Exam Date/Time: 08/13/2023 14:52 Procedure: CT HEAD NECK ANGIO W AND WO IV CONTRAST Ordering Provider: NEWSOME JAMES Reason For Exam: Vertigo, central EXAMINATION: CTA of the head and neck with and without contrast. EXAM DATE AND TIME: 08/13/2023 2:52 PM EDT INDICATION: Vertigo, central ADDITIONAL INFORMATION: 78-year-old male with vertigo presents for evaluation COMPARISON: None LIMITATIONS: None TECHNIQUE: CT angiogram of the head and neck was performed with and without intravenous contrast. Precontrast CT of the head was performed with volumetric reconstruction in the axial, coronal and sagittal planes. Subsequently, thin isotropic axial imaging was obtained through the brain and neck from the vertex to the thoracic inlet during dynamic infusion of 75 mL of intravenous Isovue 370 for evaluation of the vessels. Multiplanar and 3-D maximum intensity projection reformulations were created from the raw CT data with independent workstation software by the radiologist. These were interpreted in conjunction with the axial images to render the findings listed below. Before infusion of intravenous contrast, radiology personnel investigated the possibility of an allergic history and any history of reaction to iodinated contrast material. Dose reduction was employed with automated exposure control. FINDINGS: CT HEAD Brain: No mass or acute hemorrhage. No evidence of acute infarct. Confluent areas of periventricular and subcortical white matter hypodensity are present, in keeping with chronic ischemic microangiopathy. Ventricles: Generalized enlargement of the ventricles and sulci is noted without extracerebral collection with mass effect. Paranasal sinuses: Clear. Mastoids: Clear. Skull: The osseous calvarium is intact. Orbits: No orbital emphysema. Soft tissues: The soft tissues are unremarkable. CT ARTERIOGRAM Extracranial Circulation: Aortic arch and great vessel origins: Unremarkable. Right common and external carotid: Unremarkable. Right internal carotid: No significant stenosis identified with less than 30 percent luminal narrowing. Left common and external carotid: Unremarkable. Left internal carotid: No significant stenosis identified with less than 30 percent luminal narrowing. Vertebral arteries: Unremarkable. Other findings: No evidence of a soft tissue mass or lymphadenopathy in the neck or superior mediastinum. The lung apices are clear. Intracranial Circulation: Distal internal carotid arteries: Unremarkable. Anterior cerebral arteries: Unremarkable. Middle cerebral arteries: Unremarkable. Distal vertebral arteries: Unremarkable. Basilar artery: Unremarkable. Posterior cerebral arteries: Unremarkable. Anterior communicating artery: Unremarkable. Posterior communicating arteries: Unremarkable. Aneurysm or vascular malformation: None identified. IMPRESSION: 1. No acute intracranial abnormality. Chronic microvascular change. 2. No significant stenosis, dissection, or aneurysm in the intracranial or extracranial circulation. Report Dictated on Electronically Signed By: Bill Iyer MD Electronically Signed Date/Time: 08/16/2023 9:20 AM EDT DIZZINESS SINCE APRIL 2023 RECENT HX OF VERTIGO Normal [facility] 36on 08-05-2023 36 Last ov- 07/12/23 Next ov- 08/21/23 Normal [facility] 36on 07-23-2023 36 Spoke with patient gave appt details for MRI// Gave verbal understanding of time, day and location. [facility] Office Visiton 07-12-2023 Follow-up visit [id number] See [place] 1945 M Date Provider Department Center 07/12/2023 [id number] NEWSOME [facility] None Family History Problem Relation Age of Onset Cancer Father Family Status - Relation Status Age at Father Mother Level of Service:57183 [place] OFFICE/OUTPATIENT NEW MODERATE MDM 45 MINUTES Reason for Visit and Comments: New Patient [542] Dizziness [972434] Headache [52] Normal [facility] Progress Noteon 07-12-2023 Progress Note [facility] [address] [facility] [address] [facility] [address] Dept: [phone] Dept Loc: [phone] Cedrick Newsome MD Thank you for your kind request for a neurological consultation on this patient. CHIEF COMPLAINT: Chief Complaint Patient presents with New Patient Dizziness Headache HISTORY OF PRESENT ILLNESS: The patient is a 78 y.o. person who presents with dizziness and headaches. He reports that he first got dizziness 7 years ago and PT got rid of it. He reports that he started having the current dizziness around [place] time. Leaning forward and coming up makes it worse. Do you have to be up to have the dizziness or can you have the dizziness when seated or lying down? Yes but mostly when he is up. When you have an attack of dizziness how long does it last? Seconds: vestibular paroxysmia, cardiogenic dizziness (Less than 2 minutes)? Yes Minutes: vertebrobasilar transient ischemic attack (TIA), vestibular migraine, panic disorder, delayed orthostatic hypotension, hypoglycemia (2 min-60 min)? No Hours: vestibular migraine, M?ni?re disease, toxic/metabolic (Over an hour)? No Days: vestibular migraine? Do you feel like things are moving in when you know they are actually still?No Do you have otalgia? No Do you have tinnitus? No If so, which ear? Left/Right Do you get dizzy turning your head? No Do you have trouble with dizziness getting up from a chair or from a seat? Yes Have you had falls? No Is there any vision change with the dizziness? Yes blurry Do you have headache associated with the dizziness? No Have you had hearing loss with your dizziness? No He is having frequent headaches. They started after he got neck messages in PT. PT was ordered for vertigo he reports. Occipital and upper neck area. Dull ache. Is the DARBY longer than four hours? Yes (Migraine) Photophobia? No (Migraine) Phonophobia? No (Migraine) Nausea/Vomiting? No (Migraine) Exacerbated by Movement? Yes Blurred vision all the time. (Hemicrania Continua) Autonomic Features (at least 1 of below)? (1) conjunctival injection? No (2) lacrimation? No (3) nasal congestion? No (4) rhinorrhea? No (5) ptosis? No (6) eyelid edema? No (New Daily Persistent DARBY) Clear Onset of DARBY Syndrome? No Persistent for >3 months? No Distinct starting point? No No prior DARBY history? Yes (Tension-Type DARBY) Mild-Moderate, Featureless? No >10 attacks per month? 30 min-7days? Bilateral?Yes Pressing/tightening? Yes Is the DARBY less than four hours? No Autonomic Features? No Cluster Headache (1 or more)? No 15 min to 180 min? No Ipsilateral conjunctival injection? No Ipsilateral Lacrimation? No Ipsilateral nasal congestion? No Ipsilateral Rhinorrhea? No Ipsilateral forehead and facial sweating? No Ipsilateral Miosis? No Ipsilateral Ptosis? No eyelid edema? No Paroxysmal Hemicrania (1 or more ipsilateral)? No (1) 2 min-30 min? No (2) conjunctival injection? No (3) lacrimation? No (4) nasal congestion? No (5) rhinorrhea? No (6) eyelid edema? No Short-lasting Unilateral Neuralgiform DARBY with Conjunctival Injection and Tearing? (1) 1 sec-600 s? No (2) conjunctival injection? No (3) lacrimation? No (4) nasal congestion? No (5) rhinorrhea? No (6) eyelid edema? No Hypnic DARBY? Only during sleep and causing awakening? No > 10 days per month? No > 3 months? No Age over 50? No Primary Cough DARBY? > 2 attacks? No Precipitated by coughing or other Valsalva maneuver? No 1 sec-2 hours? No Secondary cause ruled out? No Primary Exercise DARBY? > 2 attacks? No Precipitated by strenuous exercise? No Secondary cause ruled out? No Secondary causes of DARBY? Systemic Symptoms (mets, GCA, infection)? Fever? Sweats/Chills? Weight Loss? Secondary Diseases? HIV? Cancer? Chronic Infection? Chronic Immunosuppression? Neurological Symtoms and Signs (mass/structural lesion, stroke, hydrocephalus) Confusion? Focal neurological signs/symptoms? Diplopia? Transient visual obscurations? Pulsatile tinnitus? Onset: (RCVS, stroke, SAH, CVST, dissection, pituitary apoplexy, intracranial hypertension) Thunderclap? Older Age (mass, GCA) New onset after age 50? Progressive after age 50? Positional (CSF leak, mass, CVST, Sinusitis) Orthostatic? Recumbent? Worsens with change in position? Prior history (mass, infection)? / (CVST, eclampsia, RCVS, pituitary lesion, stroke)? Precipitated by valsalva (mass, Chiari)?No Cough? Sneeze? Bending? Straining? Never had triptans or meds for headaches. He is frequently taking OTC pain meds for this. He has neck pain. Upper cervical paraspinal. Flexion of the neck and turning the head makes it worse. Massage makes it worse. Past Medical History: has a past medical history of Cancer (CMS/HCC) (HCC), Diverticula (more content not included)... [facility] Absolute lymphocyte countOrd ered By: Yair Pace on 12-15-2022 Lymphocytes Auto (Unsp spec) [#/Vol] 0.96 10*3/uL 0.83-4.51 [facility] Basophil percentageOrdered B y: Yair Pace on 12-15-2022 Basophils/100 WBC (Bld) 0.8 % 0-1 [facility] Chloride [Moles/Vol] 111 mmol/L 98-107 [facility] Eosinophils/100 WBC (Bld) 6.6 % 0-5 [facility] Glucose [Mass/Vol] 103 mg/dL 74-106 [facility] Comment on above: Fasting Glucose resu lt from 100 to 125 mg/dL suggests IMPAIRED HOMEOSTASIS per A.D.A. criteria. Neutrophils (Bld) [#/Vol] 4.5 10*3/uL 2.0-7.7 [facility] Neutrophils/100 WBC (Bld) 68.3 % 47-70 [facility] Potassium [Moles/Vol] 3.8 mmol/L 3.5-5.1 [facility] Sodium [Moles/Vol] 141 mmol/L 136-145 [facility] WBC (Bld) [#/Vol] 6.6 10*3/uL 4.4-11.0 [facility] Blood erythrocytes count (nu mber/volume)Ordered By: Yair Pace on 12-15-2022 RBC (Bld) [#/Vol] 4.40 10*6/uL 4.6-6.2 [facility] Blood hemoglobin measurement (mass/volume)Ordered By: Yair Pace on 12-15-2022 Hemoglobin (Bld) [Mass/Vol] 13.6 g/dL 13.0-16.5 [facility] Blood lymphocytes/100 leukoc ytesOrdered By: Yair Pace on 12-15-2022 Lymphocytes/100 WBC (Bld) 14.5 % 19-41 [facility] Blood monocytes/100 leukocyt esOrdered By: Yair Pace on 12-15-2022 Monocytes/100 WBC (Bld) 9.2 % 0-10 [facility] Blood platelet mean volumeOr dered By: Yair Pace on 12-15-2022 Platelet mean volume (Bld) [Entitic vol] 9.2 fL 6.2-12.0 [facility] Determination of erythrocyte mean corpuscular volume (MCV)Ordered By: Yair Pace on 12-15-2022 MCV (RBC) [Entitic vol] 94.5 fL 80-94 [facility] Hematocrit Auto (Bld) [Volum e fraction]Ordered By: Yair Pace on 12-15-2022 Hematocrit (Bld) [Volume fraction] 41.6 % 40-54 [facility] Laboratory - Chemistry and C hemistry - challengeOrdered By: Yair Pace on 12-15-2022 CK [Catalytic activity/Vol] 70 U/L 39-308 [facility] CO2 [Moles/Vol] 24.0 mmol/L 21.0-32.0 [facility] Magnesium [Mass/Vol] 2.2 mg/dL 1.6-2.6 [facility] Urea nitrogen/Creatinine [Mass ratio] 17.5 mg/mg 10-20 [facility] Laboratory - Hematology and Cell countsOrdered By: Yair Pace on 12-15-2022 Erythrocyte distribution width (RBC) [Entitic vol] 44.6 fL 35.1-43.9 [facility] Erythrocyte distribution width (RBC) [Ratio] 13.0 % 11.6-14.6 [facility] Immature granulocytes/100 WBC (Bld) 0.600 % 0.0-0.9 [facility] [facility] Comment on above: IG% - Immature Granu locytes (promyelocytes, myelocytes and metamyelocytes) > 1% indicates that a LEFT SHIFT is Present. MCH (RBC) [Entitic mass] 30.9 pg 27.0-32.0 [facility] Nucleated RBC/100 WBC (Bld) [Ratio] 0 % 0-5 [facility] MCHC Auto (RBC) [Mass/Vol]Or dered By: Yair Pace on 12-15-2022 MCHC (RBC) [Mass/Vol] 32.7 g/dL 32-36 [facility] No Panel InformationOrdered By: Yair Pace on 12-15-2022 Estimated Creatinine Clearance Calc 50.69 ml/min [facility] Estimated GFR (MDRD) Amer 71 mL/min >60 [facility] Comment on above: GFR Calc Estimated GFR (MDRD) Non-Af Amer 59 mL/min >60 [facility] Comment on above: Non- GFR Calc Platelets bldOrdered By: Uma Pace on 12-15-2022 Platelets (Bld) [#/Vol] 138 10*3/uL 150-450 [facility] Serum or plasma calcium melissa urement (mass/volume)Ordered By: Yair Pace on 12-15-2022 Calcium [Mass/Vol] 9.0 mg/dL 8.5-10.1 [facility] Serum or plasma creatinine m easurement (mass/volume)Ordered By: Yair Pace on 12-15-2022 Creatinine [Mass/Vol] 1.26 mg/dL 0.70-1.30 [facility] Comment on above: The validity of the calculated GFR & GFRAA in patients over 70 years has not been determined. Clinical correlation is essential. Serum or plasma urea nitroge n measurement (mass/volume)Ordered By: Yair Pace on 12-15-2022 Urea nitrogen [Mass/Vol] 22 mg/dL 7-18 [facility] Thin prep Papanicolaou smear with manual screeningOrdered By: Yair Pace on 12-15-2022 Thin prep Papanicolaou smear with manual screening 6 5-15 [facility] Absolute lymphocyte countOrd ered By: Dr. Frost on 09-14-2022 Lymphocytes Auto (Unsp spec) [#/Vol] 1.30 10*3/uL 0.83-4.51 [facility] Basophil percentageOrdered B y: Dr. Frost on 09-14-2022 Basophils/100 WBC (Bld) 0.5 % 0-1 [facility] Chloride [Moles/Vol] 113 mmol/L 98-107 [facility] Eosinophils/100 WBC (Bld) 5.8 % 0-5 [facility] Glucose [Mass/Vol] 100 mg/dL 74-106 [facility] Comment on above: Fasting Glucose resu lt from 100 to 125 mg/dL suggests IMPAIRED HOMEOSTASIS per A.D.A. criteria. Neutrophils (Bld) [#/Vol] 4.9 10*3/uL 2.0-7.7 [facility] Neutrophils/100 WBC (Bld) 66.4 % 47-70 [facility] Potassium [Moles/Vol] 3.7 mmol/L 3.5-5.1 [facility] Sodium [Moles/Vol] 139 mmol/L 136-145 [facility] WBC (Bld) [#/Vol] 7.4 10*3/uL 4.4-11.0 [facility] Blood erythrocytes count (nu mber/volume)Ordered By: Dr. Frost on 09-14-2022 RBC (Bld) [#/Vol] 3.32 10*6/uL 4.6-6.2 [facility] Blood hemoglobin measurement (mass/volume)Ordered By: Dr. Frost on 09-14-2022 Hemoglobin (Bld) [Mass/Vol] 10.4 g/dL 13.0-16.5 [facility] Blood lymphocytes/100 leukoc ytesOrdered By: Dr. Frost on 09-14-2022 Lymphocytes/100 WBC (Bld) 17.5 % 19-41 [facility] Blood monocytes/100 leukocyt esOrdered By: Dr. Frost on 09-14-2022 Monocytes/100 WBC (Bld) 8.5 % 0-10 [facility] Blood platelet mean volumeOr dered By: Dr. Frost on 09-14-2022 Platelet mean volume (Bld) [Entitic vol] 8.5 fL 6.2-12.0 [facility] Determination of erythrocyte mean corpuscular volume (MCV)Ordered By: Dr. Frost on 09-14-2022 MCV (RBC) [Entitic vol] 98.2 fL 80-94 [facility] Hematocrit Auto (Bld) [Volum e fraction]Ordered By: Dr. Frost on 09-14-2022 Hematocrit (Bld) [Volume fraction] 32.6 % 40-54 [facility] Laboratory - Chemistry and C hemistry - challengeOrdered By: Dr. Frost on 09-14-2022 CO2 [Moles/Vol] 23.0 mmol/L 21.0-32.0 [facility] Urea nitrogen/Creatinine [Mass ratio] 20.0 mg/mg 10-20 [facility] Laboratory - Hematology and Cell countsOrdered By: Dr. Frost on 09-14-2022 Erythrocyte distribution width (RBC) [Entitic vol] 46.5 fL 35.1-43.9 [facility] Erythrocyte distribution width (RBC) [Ratio] 13.0 % 11.6-14.6 [facility] Immature granulocytes/100 WBC (Bld) 1.300 % 0.0-0.9 [facility] Comment on above: IG% - Immature Granu locytes (promyelocytes, myelocytes and metamyelocytes) > 1% indicates that a LEFT SHIFT is Present. MCH (RBC) [Entitic mass] 31.3 pg 27.0-32.0 [facility] Nucleated RBC/100 WBC (Bld) [Ratio] 0 % 0-5 [facility] MCHC Auto (RBC) [Mass/Vol]Or dered By: Dr. Frost on 09-14-2022 MCHC (RBC) [Mass/Vol] 31.9 g/dL 32-36 [facility] No Panel InformationOrdered By: Dr. Frost on 09-14-2022 Estimated Creatinine Clearance Calc 63.88 ml/min [facility] Estimated GFR (MDRD) Amer 93 mL/min >60 [facility] Comment on above: GFR Calc Estimated GFR (MDRD) Non-Af Amer 77 mL/min >60 [facility] Comment on above: Non- GFR Calc Platelets bldOrdered By: Dr. Frost on 09-14-2022 Platelets (Bld) [#/Vol] 222 10*3/uL 150-450 [facility] Serum or plasma calcium melissa urement (mass/volume)Ordered By: Dr. Frost on 09-14-2022 Calcium [Mass/Vol] 8.4 mg/dL 8.5-10.1 [facility] Serum or plasma creatinine m easurement (mass/volume)Ordered By: Dr. Frost on 09-14-2022 Creatinine [Mass/Vol] 1.00 mg/dL 0.70-1.30 [facility] Comment on above: The validity of the calculated GFR & GFRAA in patients over 70 years has not been determined. Clinical correlation is essential. Serum or plasma urea nitroge n measurement (mass/volume)Ordered By: Dr. Frost on 09-14-2022 Urea nitrogen [Mass/Vol] 20 mg/dL 7-18 [facility] Thin prep Papanicolaou smear with manual screeningOrdered By: Dr. Frost on 09-14-2022 Thin prep Papanicolaou smear with manual screening 3 5-15 [facility] COVID-19 virus antigen assay Ordered By: Dr. Frost on 09-10-2022 SARS-CoV-2 (COVID-19) Ag IA.rapid Ql (Resp) [facility] Basophil percentageOrdered B y: Dr. Magaña on 09-06-2022 WBC (Bld) [#/Vol] 9.8 10*3/uL 4.4-11.0 [facility] Blood erythrocytes count (nu mber/volume)Ordered By: Dr. Magaña on 09-06-2022 RBC (Bld) [#/Vol] 3.38 10*6/uL 4.6-6.2 [facility] Blood hemoglobin measurement (mass/volume)Ordered By: Dr. Magaña on 09-06-2022 Hemoglobin (Bld) [Mass/Vol] 11.2 g/dL 13.0-16.5 [facility] Blood platelet mean volumeOr dered By: Dr. Magaña on 09-06-2022 Platelet mean volume (Bld) [Entitic vol] 8.9 fL 6.2-12.0 [facility] COVID-19 virus antigen assay Ordered By: Tony Magaña on 09-06-2022 SARS-CoV-2 (COVID-19) Ag IA.rapid Ql (Resp) [facility] COVID-19 virus antigen assay Ordered By: Dr. Magaña on 09-06-2022 SARS-CoV-2 (COVID-19) Ag IA.rapid Ql (Resp) [facility] Determination of erythrocyte mean corpuscular volume (MCV)Ordered By: Dr. Magaña on 09-06-2022 MCV (RBC) [Entitic vol] 99.1 fL 80-94 [facility] Hematocrit Auto (Bld) [Volum e fraction]Ordered By: Dr. Magaña on 09-06-2022 Hematocrit (Bld) [Volume fraction] 33.5 % 40-54 [facility] Laboratory - Hematology and Cell countsOrdered By: Dr. Magaña on 09-06-2022 Erythrocyte distribution width (RBC) [Entitic vol] 47.6 fL 35.1-43.9 [facility] Erythrocyte distribution width (RBC) [Ratio] 13.2 % 11.6-14.6 [facility] MCH (RBC) [Entitic mass] 33.1 pg 27.0-32.0 [facility] MCHC Auto (RBC) [Mass/Vol]Or dered By: Dr. Magaña on 09-06-2022 MCHC (RBC) [Mass/Vol] 33.4 g/dL 32-36 [facility] Platelets bldOrdered By: Dr. Magaña on 09-06-2022 Platelets (Bld) [#/Vol] 126 10*3/uL 150-450 [facility] Basophil percentageOrdered B y: Dr. Magaña on 09-05-2022 Chloride [Moles/Vol] 112 mmol/L 98-107 [facility] Glucose [Mass/Vol] 159 mg/dL 74-106 [facility] Comment on above: Fasting Glucose resu lt greater than or equal to 126 mg/dL suggests DIABETES MELLITUS per A.D.A. criteria. Potassium [Moles/Vol] 4.3 mmol/L 3.5-5.1 [facility] Sodium [Moles/Vol] 137 mmol/L 136-145 [facility] Laboratory - Chemistry and C hemistry - challengeOrdered By: Dr. Magaña on 09-05-2022 CO2 [Moles/Vol] 21.0 mmol/L 21.0-32.0 [facility] Urea nitrogen/Creatinine [Mass ratio] 14.4 mg/mg - [facility] No Panel InformationOrdered By: Dr. Magaña on 09-05-2022 Estimated Creatinine Clearance Calc 54.13 ml/min [facility] Estimated GFR (MDRD) Amer 77 mL/min >60 [facility] Comment on above: GFR Calc Estimated GFR (MDRD) Non-Af Amer 64 mL/min >60 [facility] Comment on above: Non- GFR Calc Serum or plasma calcium melissa urement (mass/volume)Ordered By: Dr. Magaña on 09-05-2022 Calcium [Mass/Vol] 8.6 mg/dL 8.5-10.1 [facility] Serum or plasma creatinine m easurement (mass/volume)Ordered By: Dr. Magaña on 09-05-2022 Creatinine [Mass/Vol] 1.18 mg/dL 0.70-1.30 [facility] Comment on above: The validity of the calculated GFR & GFRAA in patients over 70 years has not been determined. Clinical correlation is essential. Serum or plasma urea nitroge n measurement (mass/volume)Ordered By: Dr. Magaña on 09-05-2022 Urea nitrogen [Mass/Vol] 17 mg/dL 7-18 [facility] Thin prep Papanicolaou smear with manual screeningOrdered By: Dr. Magaña on 09-05-2022 Thin prep Papanicolaou smear with manual screening 4 5-15 [facility] Glucose Glucometer (BldC) [M ass/Vol]Ordered By: Dr. Magaña on 09-04-2022 Glucose [Mass/Vol] 151 mg/dL 74-106 [facility] Comment on above: MANAGEMENT OF PATIEN T CARE PER NURSING PROTOCOL Laboratory - CoagulationOrde red By: Dr. Magaña on 09-04-2022 INR Coag (Bld) [Relative time] 1.1 {INR} [facility] Comment on above: Critical Value > 4.0 Whole blood prothrombin time Ordered By: Dr. Magaña on 09-04-2022 PT Coag (Bld) [Time] 12.2 s 11.7-14.9 [facility] Absolute lymphocyte countOrd ered By: Dr. Magaña on 08-22-2022 Lymphocytes Auto (Unsp spec) [#/Vol] 1.19 10*3/uL 0.83-4.51 [facility] Basophil percentageOrdered B y: Dr. Magaña on 08-22-2022 Basophils/100 WBC (Bld) 0.6 % 0-1 [facility] Eosinophils/100 WBC (Bld) 5.2 % 0-5 [facility] Neutrophils (Bld) [#/Vol] 4.2 10*3/uL 2.0-7.7 [facility] Neutrophils/100 WBC (Bld) 68.2 % 47-70 [facility] Blood lymphocytes/100 leukoc ytesOrdered By: Dr. Magaña on 08-22-2022 Lymphocytes/100 WBC (Bld) 19.2 % 19-41 [facility] Blood monocytes/100 leukocyt esOrdered By: Dr. Magaña on 08-22-2022 Monocytes/100 WBC (Bld) 6.5 % 0-10 [facility] Laboratory - Chemistry and C hemistry - challengeOrdered By: Dr. Vasquez on 08-22-2022 Magnesium [Mass/Vol] 2.2 mg/dL 1.6-2.6 [facility] Laboratory - CoagulationOrde red By: Dr. Magaña on 08-22-2022 aPTT Coag (Bld) [Time] 41.4 s 24.1-36.2 [facility] PT Coag (PPP) [Time] 21.0 s 11.7-14.9 [facility] Laboratory - Hematology and Cell countsOrdered By: Dr. Magaña on 08-22-2022 Immature granulocytes/100 WBC (Bld) 0.300 % 0.0-0.9 [facility] Comment on above: IG% - Immature Granu locytes (promyelocytes, myelocytes and metamyelocytes) > 1% indicates that a LEFT SHIFT is Present. Nucleated RBC/100 WBC (Bld) [Ratio] 0 % 0-5 [facility] No Panel InformationOrdered By: Dr. Magaña on 08-22-2022 Fructosamine 217 umol/L 0-285 [facility] Comment on above: Published reference interval for apparently healthysubjects between age 20 and 60 is 205 - 285 umol/L and in apoorly controlled diabetic population is 228 - 563 umol/Lwith a mean of 396 umol/L.Performed at: [facility] [id number] Director: Pablito Holloway PhD, Phone: [phone] Whole blood hemoglobin A1c/t otal hemoglobin ratio (mass fraction)Ordered By: Dr. Magaña on 08-22-2022 HbA1c (Bld) [Mass fraction] 5.1 % 3.8-5.6 [facility] Comment on above: Normal < 5.7 % Predi abetic 5.7 - 6.4 % Diabetic >or= 6.5 % Please note range changes. VL Venous Duplex US Upper Ex t Righton 10-25-2021 VL Venous Duplex US Upper Ext Right [id number] Ul[facility]ound ACCESSION EXAM DATE/TIME PROCEDURE ORDERING PROVIDER [id number] 10/25/2021 11:33 EDT VL Venous Duplex US DO RANJITJERMAINE Upper Ext Right CPT code 39404 Reason For Exam (VL Venous Duplex US Upper Ext Right) ACUTE DVT IN RT AXILLARY VEIN, F/U Report ULTRASOUND RIGHT UPPER EXTREMITY VEINS: CLINICAL INDICATION: History of DVT TECHNIQUE: Ultrasonographic evaluation, including color flow and Doppler duplex sonography, of the veins of the right upper extremity was performed to evaluate for the clinically suspected deep venous thrombosis. COMPARISON: 10/02/2021 FINDINGS: There is no evidence of filling defect or limited compressibility within the basilic and cephalic vein as well as the deep brachial and axillary vein. Patent flow is also noted within the right innominate, subclavian vein and internal jugular veins. Normal compressibility in the left internal jugular vein and left subclavian vein. Color flow and Doppler interrogation demonstrates normal color flow with phasic flow with respiration with adequate augmentation. IMPRESSION: No evidence of right upper extremity deep venous thrombosis, with interval resolution of the previously seen right subclavian axillary vein DVTs. Report Dictated on Final Dictating Physician: MD MAYS NICHOLAS Signed Date and Time: 10/25/2021 12:44 pm Signed by: MD MAYS NICHOLAS Transcribed Date and Time: 10/25/2021 12:46 Cardiovascular ACCESSION EXAM DATE/TIME PROCEDURE [id number] 10/25/2021 11:33 EDT VL Venous Duplex US Upper Ext Right CPT code 37838 Cardiovascular Reason For Exam (VL Venous Duplex US Upper Ext Right) ACUTE DVT IN RT AXILLARY VEIN, F/U Report ULTRASOUND RIGHT UPPER EXTREMITY VEINS: CLINICAL INDICATION: History of DVT TECHNIQUE: Ultrasonographic evaluation, including color flow and Doppler duplex sonography, of the veins of the right upper extremity was performed to evaluate for the clinically suspected deep venous thrombosis. COMPARISON: 10/02/2021 FINDINGS: There is no evidence of filling defect or limited compressibility within the basilic and cephalic vein as well as the deep brachial and axillary vein. Patent flow is also noted within the right innominate, subclavian vein and internal jugular veins. Normal compressibility in the left internal jugular vein and left subclavian vein. Color flow and Doppler interrogation demonstrates normal color flow with phasic flow with respiration with adequate augmentation. IMPRESSION: No evidence of right upper extremity deep venous thrombosis, with interval resolution of the previously seen right subclavian axillary vein DVTs. Report Dictated on Final Dictating Physician: MD MAYS NICHOLAS Signed Date and Time: 10/25/2021 12:44 pm Signed by: MD MAYS NICHOLAS Transcribed Date and Time: 10/25/2021 12:46 Normal [facility] Basic Metabolic Panelon 05-1 Calcium [Mass/Vol] 9.3 mg/dL Normal 8.4-10.4 [facility] Comment on above: Performed By: #### B MP3, HEMDF ####[place] [address] [place] [address] Glucose [Mass/Vol] 94 mg/dL Normal 70-100 [facility] Comment on above: Performed By: #### Jaya COBB3, HEMDF ####[place] [address] [place] [address] Urea nitrogen [Mass/Vol] 18 mg/dL High 7-17 [facility] Comment on above: Performed By: #### Jaya MP3, HEMDF ####[place] [address] [place] [address] Anion gap [Moles/Vol] 9 mmol/L Normal 3-13 [facility] Comment on above: Performed By: #### Jaya MP3, HEMDF ####[place] [address] [place] [address] CO2 [Moles/Vol] 22 mmol/L Normal 22-30 [facility] Comment on above: Performed By: #### Jaya MP3, HEMDF ####[place] [address] [place] [address] Creatinine [Mass/Vol] 1.03 mg/dL Normal 0.52-1.25 [facility] Comment on above: Performed By: #### B MP3, HEMDF ####[facility] [place] [address] GFR/1.73 sq M.predicted among blacks MDRD (S/P/Bld) [Vol rate/Area] 81.1 mL/min/{1.73_m2} Normal >60 [facility] Comment on above: Performed By: #### B MP3, HEMDF ####[facility] [place] [address] GFR/1.73 sq M.predicted among non-blacks MDRD (S/P/Bld) [Vol rate/Area] 70.0 mL/min/{1.73_m2} Normal >60 [facility] Comment on above: Result Comment: KDIG O guidelines provide the following GFR categories: Stage GFR(ml/min/1.73 m2) Terms G1 >=90 Normal or high G2 60-89 Mildly decreased* G3a 45-59 Mildly to moderately decreased G3b 30-44 Moderately to severely decreased G4 15-29 Severely decreased G5 <15 Kidney failure *Relative to young adult level. In the absence of evidence of kidney damage, neither GFR category G1 nor G2 fulfill the criteria for CKD. The CKD-EPI equation is validated in individuals 18 years of age and older. Currently the best equation for estimating glomerular filtration rate (GFR) from serum creatinine in children is the Bedside Bazan equation. It is less accurate in patients with extremes of muscle mass, restriction of dietary protein, ingestion of creatine, extra-renal metabolism of creatinine, or treatment with medications that affect renal tubular creatinine secretion. Performed By: #### B MP3, HEMDF ####[facility] [place] [address] Potassium [Moles/Vol] 4.7 mmol/L Normal 3.5-5.1 [facility] Comment on above: Performed By: #### B MP3, HEMDF ####[facility] [place] [address] Sodium [Moles/Vol] 138 mmol/L Normal 135-145 [facility] Comment on above: Performed By: #### B MP3, HEMDF ####[facility] [place] [address] Chloride [Moles/Vol] 107 mmol/L Normal 98-107 [facility] Comment on above: Performed By: #### B MP3, HEMDF ####[facility] [place] [place] [address] Anion gap [Moles/Vol] 9 mmol/L 3 - 13 mmol/L [facility] Calcium [Mass/Vol] 9.3 mg/dL 8.4 - 10. 4 mg/dL [facility] Chloride [Moles/Vol] 107 mmol/L 98 - 10 7 mmol/L [facility] CO2 [Moles/Vol] 22 mmol/L 22 - 30 mmol/L [facility] Creatinine [Mass/Vol] 1.03 mg/dL 0.52 - 1.25 mg/dL [facility] EGFR IF NonAfrican [place] 70.0 mL/min >60 [facility] Comment on above: KDIGO guidelines pro vide the following GFR categories: Stage GFR(ml/min/1.73 m2) Terms G1 >=90 Normal or high G2 60-89 Mildly decreased* G3a 45-59 Mildly to moderately decreased G3b 30-44 Moderately to severely decreased G4 15-29 Severely decreased G5 <15 Kidney failure *Relative to young adult level. In the absence of evidence of kidney damage, neither GFR category G1 nor G2 fulfill the criteria for CKD. The CKD-EPI equation is validated in individuals 18 years of age and older. Currently the best equation for estimating glomerular filtration rate (GFR) from serum creatinine in children is the Bedside Bazan equation. It is less accurate in patients with extremes of muscle mass, restriction of dietary protein, ingestion of creatine, extra-renal metabolism of creatinine, or treatment with medications that affect renal tubular creatinine secretion. GFR/1.73 sq M.predicted among blacks MDRD (S/P/Bld) [Vol rate/Area] 81.1 mL/min/{1.73_m2} >60 [facility] Glucose [Mass/Vol] 94 mg/dL 70 - 100 mg/dL [facility] Interpretation and review of laboratory results Abnormal [facility] Potassium [Moles/Vol] 4.7 mmol/L 3.5 - 5.1 mmol/L [facility] Sodium [Moles/Vol] 138 mmol/L 135 - 145 mmol/L [facility] Urea nitrogen (BldV) [Mass/Vol] 18 mg/dL High 7 - 17 mg/dL [facility] Test Performed by [facility], [address] , [place], [place] [id number] [place] [address] LAB [facility] CBC with Auto Differentialon 10-02-2021 Absolute Baso # 0.0 10*3/uL 0.0 - 0.2 10*3/uL [facility] Absolute Neut # 8.4 10*3/uL High 1.8 - 7.0 10*3/uL [facility] Basophils/100 WBC (Bld) 0.5 % 0.0 - 2.0 % [facility] Eosinophils (Bld) [#/Vol] 0.2 10*3/uL 0.0 - 0.5 10*3/uL [facility] Eosinophils/100 WBC (Bld) 2.4 % 1.0 - 6.0 % [facility] Granulocytes/100 WBC (Bld) 83.9 % High 40.0 - 80.0 % [facility] Hematocrit (Bld) [Volume fraction] 40.6 % 40.0 - 52.0 % [facility] Hemoglobin.gastrointesti nal spec 1 Ql (Stl) 14.2 g/dL 13.0 - 18.0 g/dL [facility] Interpretation and review of laboratory results Abnormal [facility] Lymphocytes (Bld) [#/Vol] 0.6 10*3/uL Low 1.0 - 4.3 10*3/uL [facility] Lymphocytes/100 WBC (Bld) 6.5 % Low 20.0 - 40.0 % [facility] MCH (RBC) [Entitic mass] 32.3 pg 26. 0 - 34.0 pg [facility] MCHC (RBC) [Mass/Vol] 35.0 % 32.0 - 36.0 % [facility] MCV (RBC) [Entitic vol] 92.3 fL 80.0 - 98.0 fL [facility] Monocytes (Bld) [#/Vol] 0.6 10*3/uL 0.0 - 0.8 10*3/uL [facility] Monocytes/100 WBC (Bld) 6.2 % 2.0 - 10.0 % [facility] Platelet distribution width (Bld) [Ratio] 12.7 % 11.5 - 14.5 % [facility] Platelet mean volume (Bld) [Entitic vol] 8.8 fL 7.4 - 12.4 fL [facility] Comment on above: MPV is a calculated measurement using platelet volume ratio. Platelets (Bld) [#/Vol] 171 10*3/uL 140 - 440 10*3/uL [facility] RBC (Bld) [#/Vol] 4.40 10*6/uL 4.40 - 5.9 0 10*6/uL [facility] WBC (Bld) [#/Vol] 10.0 10*3/uL 3.6 - 10.7 10*3/uL [facility] Test Performed by [facility], [address] , [address] LAB [facility] Hemogram w/ Autodiffon 10-02 Abs Baso Cnt 0.0 10*3/uL Normal 0.0-0.2 [facility] Comment on above: Performed By: #### B MP3, HEMDF ####[facility] [place] [address] Abs Neutrophile Cnt 8.4 10*3/uL High 1.8-7.0 [facility] Comment on above: Performed By: #### B MP3, HEMDF ####[facility] [place] [address] Basophils/100 WBC (Bld) 0.5 % Normal 0.0-2.0 [facility] Comment on above: Performed By: #### B MP3, HEMDF ####[facility] [place] [address] Eosinophils (Bld) [#/Vol] 0.2 10*3/uL Normal 0.0-0.5 [facility] Comment on above: Performed By: #### B MP3, HEMDF ####[facility] [place] [address] Eosinophils/100 WBC (Bld) 2.4 % Normal 1.0-6.0 [facility] Comment on above: Performed By: #### B MP3, HEMDF ####[facility] [place] [address] Erythrocyte distribution width (RBC) [Ratio] 12.7 % Normal 11.5-14.5 [facility] Comment on above: Performed By: #### B JORDYN3, HEMDF ####[facility] [place] [place] [address] Granulocytes/100 WBC (Bld) 83.9 % High 40.0-80.0 [facility] Comment on above: Performed By: #### B JORDYN3, HEMDF ####[facility] [place] [address] Hematocrit (Bld) [Volume fraction] 40.6 % Normal 40.0-52.0 [facility] Comment on above: Performed By: #### B JORDYN3, HEMDF ####[facility] [place] [address] Hemoglobin (Bld) [Mass/Vol] 14.2 g/dL Normal 13.0-18.0 [facility] Comment on above: Performed By: #### Jaya COBB3, HEMDF ####[address] [place] [address] Lymphocytes (Bld) [#/Vol] 0.6 10*3/uL Low 1.0-4.3 [facility] Comment on above: Performed By: #### Jaya COBB3, HEMDF ####[address] [place] [address] Lymphocytes/100 WBC (Bld) 6.5 % Low 20.0-40.0 [facility] Comment on above: Performed By: #### Jaya COBB3, HEMDF ####[facility] [place] [address] MCH (RBC) [Entitic mass] 32.3 pg Normal 26.0-34.0 [facility] Comment on above: Performed By: #### B JORDYN3, HEMDF ####[facility] [place] [address] MCHC 35.0 % Normal 32.0-36.0 [facility] Comment on above: Performed By: #### Jaya COBB3, HEMDF ####[facility] [place] [address] MCV (RBC) [Entitic vol] 92.3 fL Normal 80.0-98.0 [facility] Comment on above: Performed By: #### B MP3, HEMDF ####[facility] [place] [address] Monocytes (Bld) [#/Vol] 0.6 10*3/uL Normal 0.0-0.8 [facility] Comment on above: Performed By: #### B MP3, HEMDF ####[facility] [place] [address] Monocytes/100 WBC (Bld) 6.2 % Normal 2.0-10.0 [facility] Comment on above: Performed By: #### B MP3, HEMDF ####[address] [place] [address] Platelet mean volume (Bld) [Entitic vol] 8.8 fL Normal 7.4-12.4 [facility] Comment on above: Result Comment: MPV is a calculated measurement using platelet volume ratio. Performed By: #### B MP3, HEMDF ####[facility] [place] [address] Platelets (Bld) [#/Vol] 171 10*3/uL Normal 140-440 [facility] Comment on above: Performed By: #### B MP3, HEMDF ####[place] [address] [place] [address] RBC (Bld) [#/Vol] 4.40 10*6/uL Normal 4.40-5.90 [facility] Comment on above: Performed By: #### B MP3, HEMDF ####[facility] [place] [address] WBC (Bld) [#/Vol] 10.0 10*3/uL Normal 3.6-10.7 [facility] Comment on above: Performed By: #### B MP3, HEMDF ####[facility] [place] [address] VL VENOUS DUPLEX UPPER EXTRE JESSICA Fong 10-02-2021 Patient Name: SEE PARIS Ultrasound ACCESSION EXAM DATE/TIME PROCEDURE ORDERING PROVIDER [id number] 10/02/2021 12:49 EDT VL Venous Duplex US MD JED, [place] Upper Ext Right CPT code 17946 Reason For Exam (VL Venous Duplex US Upper Ext Right) RUE swelling s/p antecubital piv 1wk ago Report RIGHT UPPER EXTREMITY VENOUS DUPLEX ULTRASOUND CLINICAL HISTORY: RUE swelling s/p antecubital piv 1wk ago Comparisons available: None FINDINGS: Grayscale, duplex and color Doppler sonographic images of the right upper extremity were obtained. Note is made of noncompressible echogenicity, deep venous thrombus within the right subclavian and axillary veins. The IJ, brachial, basilic, radial and ulnar and cephalic veins are patent. IMPRESSION: Deep venous thrombosis within the right subclavian and axillary veins. Findings communicated to ordering physician via [place] serve. Report Dictated on --- Final --- Dictating Physician: MD WIGGINS ANTHONY J Signed Date and Time: 10/02/2021 1:13 pm Signed by: MD WIGGINS ANTHONY J Transcribed Date and Time: 10/02/2021 1:14 Cardiovascular ACCESSION EXAM DATE/TIME PROCEDURE [id number] 10/02/2021 12:49 EDT VL Venous Duplex US Upper Ext Right CPT code 95792 Cardiovascular Reason For Exam (VL Venous Duplex US Upper Ext Right) RUE swelling s/p antecubital piv 1wk ago Report RIGHT UPPER EXTREMITY VENOUS DUPLEX ULTRASOUND CLINICAL HISTORY: RUE swelling s/p antecubital piv 1wk ago Comparisons available: None FINDINGS: Grayscale, duplex and color Doppler sonographic images of the right upper extremity were obtained. Note is made of noncompressible echogenicity, deep venous thrombus within the right subclavian and axillary veins. The IJ, brachial, basilic, radial and ulnar and cephalic veins are patent. IMPRESSION: Deep venous thrombosis within the right subclavian and axillary veins. Findings communicated to ordering physician via [place] serve. Report Dictated on --- Final --- Dictating Physician: MD WIGGINS ANTHONY J Signed Date and Time: 10/02/2021 1:13 pm Signed by: MD WIGGINS ANTHONY J Transcribed Date and Time: 10/02/2021 1:14 [facility] CARDIOLOGY Gio Wiggins MD - 10/02/2021 [id number]ound ACCESSION EXAM DATE/TIME PROCEDURE ORDERING PROVIDER [id number] 10/02/2021 12:49 EDT VL Venous Duplex US MD MONTES DE [place]CA [place] Upper Ext Right CPT code 82334 Reason For Exam (VL Venous Duplex US Upper Ext Right) RUE swelling s/p antecubital piv 1wk ago Report RIGHT UPPER EXTREMITY VENOUS DUPLEX ULTRASOUND CLINICAL HISTORY: RUE swelling s/p antecubital piv 1wk ago Comparisons available: None FINDINGS: Grayscale, duplex and color Doppler sonographic images of the right upper extremity were obtained. Note is made of noncompressible echogenicity, deep venous thrombus within the right subclavian and axillary veins. The IJ, brachial, basilic, radial and ulnar and cephalic veins are patent. IMPRESSION: Deep venous thrombosis within the right subclavian and axillary veins. Findings communicated to ordering physician via perfect serve. Report Dictated on --- Final --- Dictating Physician: MD WIGGINS ANTHONY J Signed Date and Time: 10/02/2021 1:13 pm Signed by: MD WIGGINS ANTHONY J Transcribed Date and Time: 10/02/2021 1:14 Cardiovascular ACCESSION EXAM DATE/TIME PROCEDURE [id number] 10/02/2021 12:49 EDT VL Venous Duplex US Upper Ext Right CPT code 84025 Cardiovascular Reason For Exam (VL Venous Duplex US Upper Ext Right) RUE swelling s/p antecubital piv 1wk ago Report RIGHT UPPER EXTREMITY VENOUS DUPLEX ULTRASOUND CLINICAL HISTORY: RUE swelling s/p antecubital piv 1wk ago Comparisons available: None FINDINGS: Grayscale, duplex and color Doppler sonographic images of the right upper extremity were obtained. Note is made of noncompressible echogenicity, deep venous thrombus within the right subclavian and axillary veins. The IJ, brachial, basilic, radial and ulnar and cephalic veins are patent. IMPRESSION: Deep venous thrombosis within the right subclavian and axillary veins. Findings communicated to ordering physician via [place] serve. Report Dictated on --- Final --- Dictating Physician: MD WIGGINS ANTHONY J Signed Date and Time: 10/02/2021 1:13 pm Signed by: MD WIGGINS ANTHONY J Transcribed Date and Time: 10/02/2021 1:14 [facility] Work Phone: Radiology Study observation (narrative) [facility] Work Phone: VL VENOUS DUPLEX UPPER EXTRE MITY RIGHTOrdered By: Gio Wiggins on 10-02-2021 [facility] Work Phone: VL Venous Duplex US Upper Ex t Righton 10-02-2021 VL Venous Duplex US Upper Ext Right Patient Name: SEE PARIS Ultrasound ACCESSION EXAM DATE/TIME PROCEDURE ORDERING PROVIDER [id number] 10/02/2021 12:49 EDT VL Venous Duplex US MD MONTES DE [place]CA [place] Upper Ext Right CPT code 52430 Reason For Exam (VL Venous Duplex US Upper Ext Right) RUE swelling s/p antecubital piv 1wk ago Report RIGHT UPPER EXTREMITY VENOUS DUPLEX ULTRASOUND CLINICAL HISTORY: RUE swelling s/p antecubital piv 1wk ago Comparisons available: None FINDINGS: Grayscale, duplex and color Doppler sonographic images of the right upper extremity were obtained. Note is made of noncompressible echogenicity, deep venous thrombus within the right subclavian and axillary veins. The IJ, brachial, basilic, radial and ulnar and cephalic veins are patent. IMPRESSION: Deep venous thrombosis within the right subclavian and axillary veins. Findings communicated to ordering physician via Pact. Report Dictated on Final Dictating Physician: MD WIGGINS ANTHONY J Signed Date and Time: 10/02/2021 1:13 pm Signed by: MD WIGGINS ANTHONY J Transcribed Date and Time: 10/02/2021 1:14 Cardiovascular ACCESSION EXAM DATE/TIME PROCEDURE [id number] 10/02/2021 12:49 EDT VL Venous Duplex US Upper Ext Right CPT code 23516 Cardiovascular Reason For Exam (VL Venous Duplex US Upper Ext Right) RUE swelling s/p antecubital piv 1wk ago Report RIGHT UPPER EXTREMITY VENOUS DUPLEX ULTRASOUND CLINICAL HISTORY: RUE swelling s/p antecubital piv 1wk ago Comparisons available: None FINDINGS: Grayscale, duplex and color Doppler sonographic images of the right upper extremity were obtained. Note is made of noncompressible echogenicity, deep venous thrombus within the right subclavian and axillary veins. The IJ, brachial, basilic, radial and ulnar and cephalic veins are patent. IMPRESSION: Deep venous thrombosis within the right subclavian and axillary veins. Findings communicated to ordering physician via Pact. Report Dictated on Final Dictating Physician: MD WIGGINS ANTHONY J Signed Date and Time: 10/02/2021 1:13 pm Signed by: MD WIGGINS ANTHONY J Transcribed Date and Time: 10/02/2021 1:14 Normal [facility] Basic Metabolic Panelon 05-0 Anion gap [Moles/Vol] 5 mmol/L Normal 3-13 [facility] Comment on above: Performed By: #### M G3, LFT3, TROPN, BMP3, LIPA4, HEMDF #### [facility] [address] [place] [address] Calcium [Mass/Vol] 9.6 mg/dL Normal 8.4-10.4 [facility] Comment on above: Performed By: #### M G3, LFT3, TROPN, BMP3, LIPA4, HEMDF #### [facility] [address] [place] [address] CO2 [Moles/Vol] 27 mmol/L Normal 22-30 [facility] Comment on above: Performed By: #### M G3, LFT3, TROPN, BMP3, LIPA4, HEMDF #### [facility] [address] [place] [address] Glucose [Mass/Vol] 103 mg/dL High 70-100 [facility] Comment on above: Performed By: #### M G3, LFT3, TROPN, BMP3, LIPA4, HEMDF #### [facility] [address] [place] [address] Urea nitrogen [Mass/Vol] 23 mg/dL High 7-17 [facility] Comment on above: Performed By: #### M G3, LFT3, TROPN, BMP3, LIPA4, HEMDF #### [facility] [address] [place] [address] Creatinine [Mass/Vol] 1.23 mg/dL Normal 0.52-1.25 [facility] Comment on above: Performed By: #### M G3, LFT3, TROPN, BMP3, LIPA4, HEMDF #### [facility] [address] [place] [address] GFR/1.73 sq M.predicted among blacks MDRD (S/P/Bld) [Vol rate/Area] 65.5 mL/min/{1.73_m2} Normal >60 [facility] Comment on above: Performed By: #### M G3, LFT3, TROPN, BMP3, LIPA4, HEMDF #### [facility] [address] [place] [address] GFR/1.73 sq M.predicted among non-blacks MDRD (S/P/Bld) [Vol rate/Area] 56.5 mL/min/{1.73_m2} Abnormal >60 [facility] Comment on above: Result Comment: KDIG O guidelines provide the following GFR categories: Stage GFR(ml/min/1.73 m2) Terms G1 >=90 Normal or high G2 60-89 Mildly decreased* G3a 45-59 Mildly to moderately decreased G3b 30-44 Moderately to severely decreased G4 15-29 Severely decreased G5 <15 Kidney failure *Relative to young adult level. In the absence of evidence of kidney damage, neither GFR category G1 nor G2 fulfill the criteria for CKD. The CKD-EPI equation is validated in individuals 18 years of age and older. Currently the best equation for estimating glomerular filtration rate (GFR) from serum creatinine in children is the Bedside Bazan equation. It is less accurate in patients with extremes of muscle mass, restriction of dietary protein, ingestion of creatine, extra-renal metabolism of creatinine, or treatment with medications that affect renal tubular creatinine secretion. Performed By: #### M G3, LFT3, TROPN, BMP3, LIPA4, HEMDF #### [facility] [address] [place] [address] Potassium [Moles/Vol] 4.0 mmol/L Normal 3.5-5.1 [facility] Comment on above: Performed By: #### M G3, LFT3, TROPN, BMP3, LIPA4, HEMDF #### [facility] [address] [place] [address] Sodium [Moles/Vol] 136 mmol/L Normal 135-145 [facility] Comment on above: Performed By: #### M G3, LFT3, TROPN, BMP3, LIPA4, HEMDF #### [facility] [address] [place] [address] Chloride [Moles/Vol] 105 mmol/L Normal 98-107 [facility] Comment on above: Performed By: #### M G3, LFT3, TROPN, BMP3, LIPA4, HEMDF #### [facility] [address] [place] [address] Anion gap [Moles/Vol] 5 mmol/L 3 - 13 mmol/L [facility] Work Phone: Calcium [Mass/Vol] 9.6 mg/dL 8.4 - 10. 4 mg/dL [facility] Work Phone: Chloride [Moles/Vol] 105 mmol/L 98 - 10 7 mmol/L [facility] Work Phone: CO2 [Moles/Vol] 27 mmol/L 22 - 30 mmol/L [facility] Work Phone: Creatinine [Mass/Vol] 1.23 mg/dL 0.52 - 1.25 mg/dL [facility] Work Phone: EGFR IF NonAfrican [place] 56.5 mL/min Abnormal >60 [facility] Work Phone: Comment on above: KDIGO guidelines pro vide the following GFR categories: Stage GFR(ml/min/1.73 m2) Terms G1 >=90 Normal or high G2 60-89 Mildly decreased* G3a 45-59 Mildly to moderately decreased G3b 30-44 Moderately to severely decreased G4 15-29 Severely decreased G5 <15 Kidney failure *Relative to young adult level. In the absence of evidence of kidney damage, neither GFR category G1 nor G2 fulfill the criteria for CKD. The CKD-EPI equation is validated in individuals 18 years of age and older. Currently the best equation for estimating glomerular filtration rate (GFR) from serum creatinine in children is the Bedside Bazan equation. It is less accurate in patients with extremes of muscle mass, restriction of dietary protein, ingestion of creatine, extra-renal metabolism of creatinine, or treatment with medications that affect renal tubular creatinine secretion. GFR/1.73 sq M.predicted among blacks MDRD (S/P/Bld) [Vol rate/Area] 65.5 mL/min/{1.73_m2} >60 [employer] Work Phone: Glucose [Mass/Vol] 103 mg/dL High 70 - 100 mg/dL [facility] Work Phone: Interpretation and review of laboratory results Abnormal [employer] Work Phone: Potassium [Moles/Vol] 4.0 mmol/L 3.5 - 5.1 mmol/L [facility] Work Phone: Sodium [Moles/Vol] 136 mmol/L 135 - 145 mmol/L [employer] Work Phone: Urea nitrogen (BldV) [Mass/Vol] 23 mg/dL High 7 - 17 mg/dL [facility] Work Phone: CBC with Auto Differentialon 09-25-2021 Absolute Baso # 0.0 10*3/uL 0.0 - 0.2 10*3/uL [facility] Work Phone: Absolute Neut # 7.5 10*3/uL High 1.8 - 7.0 10*3/uL [employer] Work Phone: Basophils/100 WBC (Bld) 0.4 % 0.0 - 2.0 % [facility] Work Phone: Eosinophils (Bld) [#/Vol] 0.3 10*3/uL 0.0 - 0.5 10*3/uL [employer] Work Phone: Eosinophils/100 WBC (Bld) 2.6 % 1.0 - 6.0 % [employer] Work Phone: Granulocytes/100 WBC (Bld) 78.2 % 40.0 - 80.0 % [facility] Work Phone: Hematocrit (Bld) [Volume fraction] 44.5 % 40.0 - 52.0 % [employer] Work Phone: Hemoglobin.gastrointesti nal spec 1 Ql (Stl) 15.2 g/dL 13.0 - 18.0 g/dL [employer] Work Phone: Interpretation and review of laboratory results Abnormal [employer] Work Phone: Lymphocytes (Bld) [#/Vol] 0.9 10*3/uL Low 1.0 - 4.3 10*3/uL [facility] Work Phone: Lymphocytes/100 WBC (Bld) 9.7 % Low 20.0 - 40.0 % [employer] Work Phone: MCH (RBC) [Entitic mass] 31.6 pg 26. 0 - 34.0 pg [employer] Work Phone: MCHC (RBC) [Mass/Vol] 34.2 % 32.0 - 36.0 % [employer] Work Phone: MCV (RBC) [Entitic vol] 92.3 fL 80.0 - 98.0 fL [employer] Work Phone: Monocytes (Bld) [#/Vol] 0.9 10*3/uL High 0.0 - 0.8 10*3/uL [facility] Work Phone: Monocytes/100 WBC (Bld) 9.1 % 2.0 - 10.0 % [employer] Work Phone: Platelet distribution width (Bld) [Ratio] 13.5 % 11.5 - 14.5 % [employer] Work Phone: Platelet mean volume (Bld) [Entitic vol] 7.5 fL 7.4 - 12.4 fL [facility] Work Phone: Comment on above: MPV is a calculated measurement using platelet volume ratio. Platelets (Bld) [#/Vol] 129 10*3/uL Low 140 - 440 10*3/uL [employer] Work Phone: RBC (Bld) [#/Vol] 4.82 10*6/uL 4.40 - 5.9 0 10*6/uL [employer] Work Phone: WBC (Bld) [#/Vol] 9.6 10*3/uL 3.6 - 10.7 10*3/uL [facility] Work Phone: Test Performed by [facility], [address] [place] [address] LAB [employer] Work Phone: CR Ribs w/ PA Chest Righton 09-25-2021 CR Ribs w/ PA Chest Right Patient Name: SEE PARIS Diagnostic Radiology ACCESSION EXAM DATE/TIME PROCEDURE ORDERING PROVIDER [id number] 09/25/2021 04:42 EDT CR Ribs w/ PA Chest [id number] -ZAIDA MONTEJO Right CPT code 59407 Reason For Exam (CR Ribs w/ PA Chest Right) chest wall tenderness on right lower rib cage Report RIGHT RIB SERIES WITH CHEST: INDICATION: Chest wall tenderness COMPARISON: No previous studies are available for comparison. Examination of right ribs was obtained with three views. An additional PA view of the chest was obtained. Evaluation of the right ribs demonstrate no evidence of fracture. There is no pleural thickening nor is there abnormality of the underlying pulmonary parenchyma. The heart and mediastinum to the extent of visualization are unremarkable. The right lung apex is clear. IMPRESSION: Negative right ribs. Report Dictated on Final Dictating Physician: DO PENA ALFRED Signed Date and Time: 09/25/2021 5:03 am Signed by: DO PENA ALFRED Transcribed Date and Time: 09/25/2021 5:04 Normal [facility] CT Abdomen and Pelvis W cont rast Joan 09-25-2021 [id number] Tomography ACCESSION EXAM DATE/TIME PROCEDURE ORDERING PROVIDER [id number] 09/25/2021 10:[address] Abdomen/Pelvis w/ IV [id number] -GUSTABO ZAIDA Contrast (IV Onl CPT code 72336 Q9967 Reason For Exam (CT Abdomen/Pelvis w/ IV Contrast (IV Onl) RUQ pain Report Study: CT abdomen pelvis. INDICATION:Rectal quadrant pain COMPARISON:11/04/2015 FINDINGS: Imaging of the abdomen and pelvis were performed 75 mL Isovue-370 Lung bases:No major volume loss. Limited by respiratory motion. Free air: No free air seen. Bowel: Limited by lack of oral contrast. No gross obstruction focal inflammation diverticulitis appendicitis or abscess within limits of the study. Hiatal hernia noted. Increased stool and gas suspicious for constipation. Diverticulosis. Liver: 1 cm hepatic cyst left lobe suspected. Gallbladder: No stones , wall thickening or pericholecystic fluid. Pancreas: Unremarkable as seen. Spleen: No splenomegaly. No focal lesion. Adrenal glands:No adrenal mass visible. Vascular:Unremarkabl e as seen. Kidneys , ureters and bladder: No definite hydronephrosis, collecting system or bladder calculi seen. No perinephric process. Parapelvic cysts. Retroperitoneum: No adenopathy seen. Peritoneal cavity: No definite abnormality.. Pelvic structures:Unremarka ble Computed Tomography Report Spine and musculoskeletal: No spinal compression visible. Some degenerative appearing change noted. No acute paraspinous process.. Abdominal wall:Unremarkable as seen. IMPRESSION:No abscess, obstruction or free air seen. The etiology of the symptoms is uncertain. Limited by lack of oral contrast. Constipation suspected. Consider follow-up. Hiatal hernia. Suspected hepatic and renal cystic changes similar to previous. Some patchy atherosclerosis noted incidentally. Diverticulosis noted. Report Dictated on --- Final --- Dictating Physician: MD FRANCO JOHN Signed Date and Time: 09/25/2021 9:26 am Signed by: MD FRANCO JOHN Transcribed Date and Time: 09/25/2021 10:16 [facility] Carlos Franco MD - 09/25/2021 Patient Name: SEE PARIS Computed Tomography ACCESSION EXAM DATE/TIME PROCEDURE ORDERING PROVIDER [id number] 09/25/2021 10:[address] Abdomen/Pelvis w/ IV [id number] -KITRUPTI ZAIDA Contrast (IV Onl CPT code 51766 Q9967 Reason For Exam (CT Abdomen/Pelvis w/ IV Contrast (IV Onl) RUQ pain Report Study: CT abdomen pelvis. INDICATION:Rectal quadrant pain COMPARISON:11/04/2015 FINDINGS: Imaging of the abdomen and pelvis were performed 75 mL Isovue-370 Lung bases:No major volume loss. Limited by respiratory motion. Free air: No free air seen. Bowel: Limited by lack of oral contrast. No gross obstruction focal inflammation diverticulitis appendicitis or abscess within limits of the study. Hiatal hernia noted. Increased stool and gas suspicious for constipation. Diverticulosis. Liver: 1 cm hepatic cyst left lobe suspected. Gallbladder: No stones , wall thickening or pericholecystic fluid. Pancreas: Unremarkable as seen. Spleen: No splenomegaly. No focal lesion. Adrenal glands:No adrenal mass visible. Vascular:Unremarkabl e as seen. Kidneys , ureters and bladder: No definite hydronephrosis, collecting system or bladder calculi seen. No perinephric process. Parapelvic cysts. Retroperitoneum: No adenopathy seen. Peritoneal cavity: No definite abnormality.. Pelvic structures:Unremarka ble Computed Tomography Report Spine and musculoskeletal: No spinal compression visible. Some degenerative appearing change noted. No acute paraspinous process.. Abdominal wall:Unremarkable as seen. IMPRESSION:No abscess, obstruction or free air seen. The etiology of the symptoms is uncertain. Limited by lack of oral contrast. Constipation suspected. Consider follow-up. Hiatal hernia. Suspected hepatic and renal cystic changes similar to previous. Some patchy atherosclerosis noted incidentally. Diverticulosis noted. Report Dictated on --- Final --- Dictating Physician: MD FRANCO JOHN Signed Date and Time: 09/25/2021 9:26 am Signed by: MD FRANCO JOHN Transcribed Date and Time: 09/25/2021 10:16 [facility] Work Phone: Radiology Study observation (narrative) [facility] Work Phone: CT Abdomen and Pelvis W cont rast IVOrdered By: Carlos Franco on 09-25-2021 [facility] Work Phone: CT Abdomen/Pelvis w/ Contras ton 09-25-2021 CT Abdomen/Pelvis w/ Contrast Patient Name: SEE PARIS Computed Tomography ACCESSION EXAM DATE/TIME PROCEDURE ORDERING PROVIDER [id number] 09/25/2021 10:[address] Abdomen/Pelvis w/ IV [id number] -KIBE, ZAIDA Contrast (IV Onl CPT code 72901 Q9967 Reason For Exam (CT Abdomen/Pelvis w/ IV Contrast (IV Onl) RUQ pain Report Study: CT abdomen pelvis. INDICATION:Rectal quadrant pain COMPARISON:11/04/2015 FINDINGS: Imaging of the abdomen and pelvis were performed 75 mL Isovue-370 Lung bases:No major volume loss. Limited by respiratory motion. Free air: No free air seen. Bowel: Limited by lack of oral contrast. No gross obstruction focal inflammation diverticulitis appendicitis or abscess within limits of the study. Hiatal hernia noted. Increased stool and gas suspicious for constipation. Diverticulosis. Liver: 1 cm hepatic cyst left lobe suspected. Gallbladder: No stones , wall thickening or pericholecystic fluid. Pancreas: Unremarkable as seen. Spleen: No splenomegaly. No focal lesion. Adrenal glands:No adrenal mass visible. Vascular:Unremarkabl e as seen. Kidneys , ureters and bladder: No definite hydronephrosis, collecting system or bladder calculi seen. No perinephric process. Parapelvic cysts. Retroperitoneum: No adenopathy seen. Peritoneal cavity: No definite abnormality.. Pelvic structures:Unremarka ble Computed Tomography Report Spine and musculoskeletal: No spinal compression visible. Some degenerative appearing change noted. No acute paraspinous process.. Abdominal wall:Unremarkable as seen. IMPRESSION:No abscess, obstruction or free air seen. The etiology of the symptoms is uncertain. Limited by lack of oral contrast. Constipation suspected. Consider follow-up. Hiatal hernia. Suspected hepatic and renal cystic changes similar to previous. Some patchy atherosclerosis noted incidentally. Diverticulosis noted. Report Dictated on Final Dictating Physician: MD FRANCO JOHN Signed Date and Time: 09/25/2021 9:26 am Signed by: MD FRANCO JOHN Transcribed Date and Time: 09/25/2021 10:16 Normal [facility] Complete Urinalysison 2021 Appearance (U) Clear Normal Clear [facility] Comment on above: Result Comment: . Performed By: #### C UA2 #### [facility] [address] [place] [address] Bacteria LM.HPF (Urine sed) [#/Area] Negative Normal Negative [facility] Comment on above: Result Comment: . Performed By: #### C UA2 #### [facility] [address] [place] [address] Bilirubin,Urine Negative Normal Negative [facility] Comment on above: Result Comment: . Performed By: #### C UA2 #### [facility] [address] [place] [address] Color (U) Yellow Normal Lt. Yellow [facility] Comment on above: Result Comment: . Performed By: #### C UA2 #### [facility] [address] [place] [address] Glucose Ql (U) Normal Normal Normal (<70) [facility] Comment on above: Result Comment: . Performed By: #### C UA2 #### [facility] [address] [place] [address] Ketone,Urine Negative Normal Negative [facility] Comment on above: Result Comment: . Performed By: #### C UA2 #### [facility] [address] [place] [address] Leukocytes,Urine Negative Normal Negative [facility] Comment on above: Result Comment: . Performed By: #### C UA2 #### [facility] [address] [place] [address] Mucous Threads Few Normal Negative [facility] Comment on above: Result Comment: . Performed By: #### C UA2 #### [facility] [address] [place] [address] Nitrites,Urine Negative Normal Negative [facility] Comment on above: Result Comment: . Performed By: #### C UA2 #### [facility] [address] [place] [address] Occult Blood,Urine Negative Normal Negative [facility] Comment on above: Result Comment: . Performed By: #### C UA2 #### [facility] [address] [place] [address] pH,Urine 5.5 Normal 5.0-8.0 [facility] Comment on above: Result Comment: . Performed By: #### C UA2 #### [facility] [address] [place] [address] Protein (U) [Mass/Vol] 10 mg/dL Abnormal Negative [facility] Comment on above: Result Comment: . Performed By: #### C UA2 #### [facility] [address] [place] [address] RBC, Urine 0 - 2 Normal 0-2 [facility] Comment on above: Result Comment: . Performed By: #### C UA2 #### [facility] [address] [place] [address] Specific [place],Urine > 1.030 Abnormal 1.005 - 1.030 [facility] Comment on above: Result Comment: . Performed By: #### C UA2 #### [facility] [address] [place] [address] Squamous Epithelial Negative Normal 3-5 [facility] Comment on above: Result Comment: . Performed By: #### C UA2 #### [facility] [address] [place] [address] Urobilinogen,Urine Normal Normal Normal (0-1) [facility] Comment on above: Result Comment: . Performed By: #### C UA2 #### [facility] [address] [place] [address] WBC, Urine 0 - 2 Normal 0-5 [facility] Comment on above: Result Comment: . Performed By: #### C UA2 #### [facility] [address] [place] [address] ED Provider Noteon 2 ED Provider Note [facility] EMERGENCY DEPARTMENT ENCOUNTER Pt Name: See Paris Birthdate 1945 Date of evaluation: 09/25/2021 Provider: Zaida Montejo MD CHIEF COMPLAINT Chief Complaint Patient presents with ? Abdominal Pain RUQ HISTORY OF PRESENT ILLNESS (Location/Symptom, Timing/Onset, Context/Setting, Quality, Duration, Modifying Factors, Severity) Note limiting factors. I wore a surgical mask for the entirety of this encounter. HPI See Paris is a 76 y.o. male with a past medical history significant for hypertension, and diverticular disease who presents to the emergency department for evaluation for right lateral chest wall pain. Patient states has been getting care for viral infection for the last 40 days. He states he feels as though he is finally gotten over it. He however states that today he started experiencing pain in the right side accompanied by diaphoresis hence came to the emergency department for evaluation. Patient however denies any fevers, palpitations, diaphoresis, shortness of breath, vomiting or diarrhea. Nursing Notes were reviewed. REVIEW OF SYSTEMS (2+ for level 4; 10+ for level 5) Review of Systems Constitutional: Positive for chills and diaphoresis. Negative for activity change, appetite change and fever. HENT: Negative for congestion, facial swelling, sinus pressure, sinus pain, sneezing and trouble swallowing. Eyes: Negative for pain, discharge and visual disturbance. Respiratory: Negative for cough, chest tightness and shortness of breath. Cardiovascular: Negative for chest pain and palpitations. Gastrointestinal: Positive for abdominal pain and nausea. Negative for vomiting. Genitourinary: Negative for decreased urine volume, dysuria, hematuria and urgency. Musculoskeletal: Negative for back pain, neck pain and neck stiffness. Skin: Negative for color change, pallor and rash. Neurological: Negative for dizziness, light-headedness and numbness. Psychiatric/Behavior al: Negative for confusion and hallucinations. The patient is not nervous/anxious. PAST MEDICAL HISTORY Past Medical History: Diagnosis Date ? Cancer (HCC) ? Diverticula, colon ? Hypertension ? Reflex abnormality SURGICAL HISTORY Past Surgical History: Procedure Laterality Date ? KNEE SURGERY ? PROSTATECTOMY ? SHOULDER SURGERY CURRENT MEDICATIONS Discharge Medication List as of 09/25/2021 10:30 AM CONTINUE these medications which have NOT CHANGED Details bicalutamide (CASODEX) 50 MG chemo tablet TAKE 1 TABLET BY MOUTH EVERY DAYHistorical Med amLODIPine (NORVASC) 5 MG tablet Take 5 mg by mouth daily doxazosin (CARDURA) 2 MG tablet Take 2 mg by mouth nightly omeprazole (PRILOSEC) 20 MG capsule Take 20 mg by mouth daily calcium carbonate 600 MG TABS tablet Take 1 tablet by mouth daily ALLERGIES Morphine and Oxycodone FAMILY HISTORY Family History Problem Relation Age of Onset ? Cancer Father SOCIAL HISTORY Social History Socioeconomic History ? Marital status: Spouse name: None ? Number of children: None ? Years of education: None ? Highest education level: None Occupational History ? None Tobacco Use ? Smoking status: Former Smoker ? Smokeless tobacco: Never Used Vaping Use ? Vaping Use: Never used Substance and Sexual Activity ? Alcohol use: Never ? Drug use: No ? Sexual activity: None Other Topics Concern ? None Social History Narrative ? None Social Determinants of Health Financial Resource Strain: ? Difficulty of Paying Living Expenses: Not on file Food Insecurity: ? Worried About Running Out of Food in the Last Year: Not on file ? Ran Out of Food in the Last Year: Not on file Transportation Needs: ? Lack of Transportation (Medical): Not on file ? Lack of Transportation (Non-Medical): Not on file Physical Activity: ? Days of Exercise per Week: Not on file ? Minutes of Exercise per Session: Not on file Stress: ? Feeling of Stress : Not on file Social Connections: ? Frequency of Communication with Friends and Family: Not on file ? Frequency of Social Gatherings with Friends and Family: Not on file ? Attends [employer] Services: Not on file ? Active Member of Clubs or Organizations: Not on file ? Attends Club or Organization Meetings: Not on file ? Marital Status: Not on file Intimate Partner Violence: ? Fear of Current or Ex-Partner: Not on file ? Emotionally Abused: Not on file ? Physically Abused: Not on file ? Sexually Abused: Not on file Housing Stability: ? Unable to Pay for Housing in the Last Year: Not on file ? Number of Places Lived in the Last Year: Not on file ? Unstable Housing in the Last Year: Not on file SCREENINGS PHYSICAL EXAM (up to 7 for level 4, 8 or more for level 5) ED Triage Vitals [09/25/21 7834] BP Temp Temp Source Pulse Resp SpO2 Height Weight (!) 170/80 98.4 ?F (36.9 ?C) Oral 80 16 95 % 5' 10 (1.778 m) 210 lb (95.3 kg) (more content not included)... Normal [facility] ED Provider Note Emergency Department Encounter Location: [facility] ED Patient: See Paris : 1945 Date of evaluation: 09/25/2021 ED Provider: CHRISTIAN PAINTER MD [id number] See Paris was checked out to me by Dr. Wilkins. Please see his/her initial documentation for details of the patient's initial ED presentation, physical exam and completed studies. In brief, See Paris is a 76 y.o. male that presented to the emergency department for abdominal pain. I have reviewed and interpreted all of the currently available lab results and diagnostics from this visit: Results for orders placed or performed during the hospital encounter of 09/25/21 Basic Metabolic Panel Result Value Ref Range Sodium 136 135 - 145 mmol/L Potassium 4.0 3.5 - 5.1 mmol/L Chloride 105 98 - 107 mmol/L CO2 27 22 - 30 mmol/L Anion Gap 5 3 - 13 mmol/L Glucose 103 (H) 70 - 100 mg/dL BUN 23 (H) 7 - 17 mg/dL CREATININE 1.23 0.52 - 1.25 mg/dL eGFR 65.5 >60 mL/min EGFR IF NonAfrican [place]dean 56.5 (A) >60 mL/min Calcium 9.6 8.4 - 10.4 mg/dL CBC with Auto Differential Result Value Ref Range WBC 9.6 3.6 - 10.7 10*3/uL RBC 4.82 4.40 - 5.90 10*6/uL Hemoglobin 15.2 13.0 - 18.0 g/dL Hematocrit 44.5 40.0 - 52.0 % MCV 92.3 80.0 - 98.0 fL MCH 31.6 26.0 - 34.0 pg MCHC 34.2 32.0 - 36.0 % RDW 13.5 11.5 - 14.5 % Platelets 129 (L) 140 - 440 10*3/uL MPV 7.5 7.4 - 12.4 fL Granulocytes % 78.2 40.0 - 80.0 % Lymphocyte % 9.7 (L) 20.0 - 40.0 % Monocytes 9.1 2.0 - 10.0 % Eosinophils 2.6 1.0 - 6.0 % Basophils 0.4 0.0 - 2.0 % Absolute Neut # 7.5 (H) 1.8 - 7.0 10*3/uL Absolute Lymph # 0.9 (L) 1.0 - 4.3 10*3/uL Absolute Barber # 0.9 (H) 0.0 - 0.8 10*3/uL Absolute Eos # 0.3 0.0 - 0.5 10*3/uL Absolute Baso # 0.0 0.0 - 0.2 10*3/uL Hepatic Function Panel Result Value Ref Range Albumin,Serum 4.5 3.5 - 5.0 g/dL Total Protein 7.5 6.3 - 8.2 g/dL Total Bilirubin 1.0 0.2 - 1.3 mg/dL Bilirubin, Direct 0.0 0.0 - 0.3 mg/dL Alkaline Phosphatase 51 38 - 126 U/L ALT 21 0 - 49 U/L AST 30 15 - 46 U/L Lipase Result Value Ref Range Lipase 50 23 - 300 U/L Magnesium Result Value Ref Range Magnesium 2.1 1.6 - 2.3 mg/dL Troponin x1 Result Value Ref Range Troponin I <0.012 0.000 - 0.034 ng/mL XR RIBS RIGHT INCLUDE CHEST (MIN 3 VIEWS) Result Date: 09/25/2021 Patient Name: SEE PARIS Diagnostic Radiology ACCESSION EXAM DATE/TIME PROCEDURE ORDERING PROVIDER [id number] 09/25/2021 04:42 EDT CR Ribs w/ PA Chest [id number] -JAMAAL MONTEJOSCA Right CPT code 08869 Reason For Exam (CR Ribs w/ PA Chest Right) chest wall tenderness on right lower rib cage Report RIGHT RIB SERIES WITH CHEST: INDICATION: Chest wall tenderness COMPARISON: No previous studies are available for comparison. Examination of right ribs was obtained with three views. An additional PA view of the chest was obtained. Evaluation of the right ribs demonstrate no evidence of fracture. There is no pleural thickening nor is there abnormality of the underlying pulmonary parenchyma. The heart and mediastinum to the extent of visualization are unremarkable. The right lung apex is clear. IMPRESSION: Negative right ribs. Report Dictated on --- Final --- Dictating Physician: DO PENA ALFRED Signed Date and Time: 09/25/2021 5:03 am Signed by: DO PENA ALFRED Transcribed Date and Time: 09/25/2021 5:04 Final ED Course and MDM: In brief, See Paris is a 76 y.o. male whose care was signed out to me by the outgoing provider. In brief, the patient was signed out to me awaiting results of the UA and CT with suspected plans for discharge as already discussed with the patient by Dr. Montejo. Patient's work-up is unremarkable with the exception of hiatal hernia which she is aware of as well as unchanged cysts and possibly some constipation on CT scan. Patient states that he thinks it may have just been gas pains. Patient states that the pain is much better now rating it a 2 out of 10. Repeat abdominal examination mild right upper quadrant tenderness negative Galdamez sign. ED Medication Orders (From admission, onward) Start Ordered Status Ordering Provider 09/25/21 0646 09/25/21 0646 iopamidol (ISOVUE-370) 76 % injection 75 mL IMG ONCE PRN Last JUL action: Given - by NASREEN MORE on 09/25/21 at 0654 KIBE, ZAIDA 09/25/21 0542 09/25/21 0541 ondansetron (ZOFRAN) injection 4 mg ONCE Last MAR action: Given - by VARGHESE BOYD on 09/25/21 at 0545 KIBE, ZAIDA 09/25/21 0422 09/25/21 0421 ketorolac (TORADOL) injection 15 mg ONCE Last MAR action: Given - by VARGHESE BOYD on 09/25/21 at 0545 [facility], ZAIDA Final Impression No diagnosis found. DISPOSITION (Please note that portions of this note may have been completed with a voice recognition program. Efforts were made to edit the dictations but occasionally words are mis-transcribed.) CHRISTIAN PAINTER MD US Acute Car (more content not included)... Normal [facility] EKG 12 Lead - Chest Painon 0 09-25-2021 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 Test Date: 2021-09-25 Pat Name: SEE PARIS Department: 01 Room: 11 Gender: M Obstetrician Gynecologist: RIGOBERTO : 1945 Requested By: ZAIDA MONTEJO Order Number: [id number] Reading MD: Zaida Montejo Measurements Intervals [place] Rate: 56 P: 22 MN: 172 QRS: -7 QRSD: 106 T: 13 QT: 420 QTc: 406 Interpretive Statements SINUS RHYTHM CONSIDER ANTEROSEPTAL INFARCT No previous ECG available for comparison Electronically Signed On 09-25-2021 6:04:14 EDT by Zaida Montejo [facility] Work Phone: [facility] Work Phone: Hemogram w/ [employer] 09-25 Abs Baso Cnt 0.0 10*3/uL Normal 0.0-0.2 [facility] Comment on above: Performed By: #### M G3, LFT3, TROPN, BMP3, LIPA4, HEMDF #### [facility] [address] [place] [address] Abs Neutrophile Cnt 7.5 10*3/uL High 1.8-7.0 [facility] Comment on above: Performed By: #### M G3, LFT3, TROPN, BMP3, LIPA4, HEMDF #### [facility] [address] [place] [address] Basophils/100 WBC (Bld) 0.4 % Normal 0.0-2.0 [facility] Comment on above: Performed By: #### M G3, LFT3, TROPN, BMP3, LIPA4, HEMDF #### [facility] [address] [place] [id number] Eosinophils (Bld) [#/Vol] 0.3 10*3/uL Normal 0.0-0.5 [facility] Comment on above: Performed By: #### M G3, LFT3, TROPN, BMP3, LIPA4, HEMDF #### [facility] [address] [place] [id number] Eosinophils/100 WBC (Bld) 2.6 % Normal 1.0-6.0 [facility] Comment on above: Performed By: #### M G3, LFT3, TROPN, BMP3, LIPA4, HEMDF #### [facility] [address] [place] [id number] Erythrocyte distribution width (RBC) [Ratio] 13.5 % Normal 11.5-14.5 [facility] Comment on above: Performed By: #### M G3, LFT3, TROPN, BMP3, LIPA4, HEMDF #### [facility] [address] [place] [id number] Granulocytes/100 WBC (Bld) 78.2 % Normal 40.0-80.0 [facility] Comment on above: Performed By: #### M G3, LFT3, TROPN, BMP3, LIPA4, HEMDF #### [facility] [address] [place] [id number] Hematocrit (Bld) [Volume fraction] 44.5 % Normal 40.0-52.0 [facility] Comment on above: Performed By: #### M G3, LFT3, TROPN, BMP3, LIPA4, HEMDF #### [facility] [address] [place] [id number] Hemoglobin (Bld) [Mass/Vol] 15.2 g/dL Normal 13.0-18.0 [facility] Comment on above: Performed By: #### M G3, LFT3, TROPN, BMP3, LIPA4, HEMDF #### [facility] [address] [place] [id number] Lymphocytes (Bld) [#/Vol] 0.9 10*3/uL Low 1.0-4.3 [facility] Comment on above: Performed By: #### M G3, LFT3, TROPN, BMP3, LIPA4, HEMDF #### [facility] [address] [place] [id number] Lymphocytes/100 WBC (Bld) 9.7 % Low 20.0-40.0 [facility] Comment on above: Performed By: #### M G3, LFT3, TROPN, BMP3, LIPA4, HEMDF #### [facility] [address] [place] [id number] MCH (RBC) [Entitic mass] 31.6 pg Normal 26.0-34.0 [facility] Comment on above: Performed By: #### M G3, LFT3, TROPN, BMP3, LIPA4, HEMDF #### [facility] [address] [place] [id number] MCHC 34.2 % Normal 32.0-36.0 [facility] Comment on above: Performed By: #### M G3, LFT3, TROPN, BMP3, LIPA4, HEMDF #### [facility] [address] [place] [id number] MCV (RBC) [Entitic vol] 92.3 fL Normal 80.0-98.0 [facility] Comment on above: Performed By: #### M G3, LFT3, TROPN, BMP3, LIPA4, HEMDF #### [facility] [address] [place] [id number] Monocytes (Bld) [#/Vol] 0.9 10*3/uL High 0.0-0.8 [facility] Comment on above: Performed By: #### M G3, LFT3, TROPN, BMP3, LIPA4, HEMDF #### [facility] [address] [place] [id number] Monocytes/100 WBC (Bld) 9.1 % Normal 2.0-10.0 [facility] Comment on above: Performed By: #### M G3, LFT3, TROPN, BMP3, LIPA4, HEMDF #### [facility] [address] [place] [id number] Platelet mean volume (Bld) [Entitic vol] 7.5 fL Normal 7.4-12.4 [facility] Comment on above: Result Comment: MPV is a calculated measurement using platelet volume ratio. Performed By: #### M G3, LFT3, TROPN, BMP3, LIPA4, HEMDF #### [facility] [address] [place] [id number] Platelets (Bld) [#/Vol] 129 10*3/uL Low 140-440 [facility] Comment on above: Performed By: #### M G3, LFT3, TROPN, BMP3, LIPA4, HEMDF #### [facility] [address] [place] [id number] RBC (Bld) [#/Vol] 4.82 10*6/uL Normal 4.40-5.90 [facility] Comment on above: Performed By: #### M G3, LFT3, TROPN, BMP3, LIPA4, HEMDF #### [facility] [address] [place] [id number] WBC (Bld) [#/Vol] 9.6 10*3/uL Normal 3.6-10.7 [facility] Comment on above: Performed By: #### M G3, LFT3, TROPN, BMP3, LIPA4, HEMDF #### [facility] [address] [place] [id number] Hepatic Functionon 2 ALP [Catalytic activity/Vol] 51 U/L Normal 38-126 [facility] Comment on above: Performed By: #### M G3, LFT3, TROPN, BMP3, LIPA4, HEMDF #### [facility] [address] [place] [id number] ALT [Catalytic activity/Vol] 21 U/L Normal 0-49 [facility] Comment on above: Result Comment: The ALT test is performed by an updated assay method. Please note that the reference intervals have been changed and are now sex specific. Performed By: #### M G3, LFT3, TROPN, BMP3, LIPA4, HEMDF #### [facility] [address] [place] [id number] AST [Catalytic activity/Vol] 30 U/L Normal 15-46 [facility] Comment on above: Performed By: #### M G3, LFT3, TROPN, BMP3, LIPA4, HEMDF #### [facility] [address] [place] [id number] Bilirubin [Mass/Vol] 1.0 mg/dL Normal 0.2-1.3 [facility] Comment on above: Performed By: #### M G3, LFT3, TROPN, BMP3, LIPA4, HEMDF #### [facility] [address] [place] [id number] Bilirubin.indirect [Mass/Vol] 0.0 mg/dL Normal 0.0-0.3 [facility] Comment on above: Performed By: #### M G3, LFT3, TROPN, BMP3, LIPA4, HEMDF #### [facility] [address] [place] [id number] Protein [Mass/Vol] 7.5 g/dL Normal 6.3-8.2 [facility] Comment on above: Performed By: #### M G3, LFT3, TROPN, BMP3, LIPA4, HEMDF #### [facility] [address] [place] [id number] Albumin [Mass/Vol] 4.5 g/dL Normal 3.5-5.0 [facility] Comment on above: Performed By: #### M G3, LFT3, TROPN, BMP3, LIPA4, HEMDF #### [facility] [address] [place] [id number] Hepatic Function Panelon Albumin [Mass/Vol] 4.5 g/dL 3.5 - 5.0 g/dL [facility] Work Phone: ALP (Bld) [Catalytic activity/Vol] 51 U/L 38 - 126 U/L [facility] Work Phone: ALT [Catalytic activity/Vol] 21 U/L 0 - 49 U/L [facility] Work Phone: Comment on above: The ALT test is perf ormed by an updated assay method. Please note that the reference intervals have been changed and are now sex specific. AST [Catalytic activity/Vol] 30 U/L 15 - 46 U/L [facility] Work Phone: Bilirubin [Mass/Vol] 1.0 mg/dL 0.2 - 1 .3 mg/dL [facility] Work Phone: Bilirubin.indirect [Mass/Vol] 0.0 mg/dL 0.0 - 0.3 mg/dL [facility] Work Phone: Free PSA/Total PSA [Mass fraction] 7.5 g/dL 6.3 - 8.2 g/dL [facility] Work Phone: Lipaseon 09-25-2021 Lipase [Catalytic activity/Vol] 50 U/L Normal 23-300 [facility] Comment on above: Performed By: #### M G3, LFT3, TROPN, BMP3, LIPA4, HEMDF ####[facility] [id number] [place] [address] Lipase [Catalytic activity/Vol] 50 U/L 23 - 300 U/L [facility] Work Phone: Test Performed by [facility] [address] [facility], [address] LAB [facility] Work Phone: Magnesiumon 09-25-2021 Magnesium [Mass/Vol] 2.1 mg/dL Normal 1.6-2.3 [facility] Work Phone: Comment on above: Performed By: #### M G3, LFT3, TROPN, BMP3, LIPA4, HEMDF #### [facility] [address] [facility] [address] [place] [address] No Panel Informationon 09-25 Test Performed by [facility], [address] LAB [facility] Work Phone: Troponin Ion 09-25-2021 Troponin I.cardiac [Mass/Vol] ng/mL Normal 0.000-0.034 [facility] Comment on above: Result Comment: . Performed By: #### M G3, LFT3, TROPN, BMP3, LIPA4, HEMDF ####[facility] [id number] [place] [address] Troponin x1on 09-25-2021 Troponin I.cardiac [Mass/Vol] ng/mL 0.000 - 0.034 ng/mL [facility] Work Phone: Comment on above: . Test Performed by [facility], [address], [place], [place] [address] [facility] LAB [facility] Work Phone: Urinalysison 09-25-2021 Appearance (U) Clear Clear NA [facility] Work Phone: Comment on above: . Bacteria, UA Negative Negative /[HPF] [facility] Work Phone: Comment on above: . Bilirubin Urine Negative Negative mg/dL [facility] Work Phone: Comment on above: . Color (U) Yellow Lt. Yellow NA [facility] Work Phone: Comment on above: . Glucose, Ur Normal Normal (<70) mg/dL [facility] Work Phone: Comment on above: . Interpretation and review of laboratory results Abnormal [facility] Work Phone: Ketones Ql (U) Negative Negative mg/dL [facility] Work Phone: Comment on above: . LEUKOCYTES, UA Negative Negative Pedro/uL [facility] Work Phone: Comment on above: . Mucous Threads Few Negative /[LPF] [facility] Work Phone: Comment on above: . Nitrite, Urine Negative Negative NA [facility] Work Phone: Comment on above: . Occult Blood,Urine Negative Negative mg/dL [facility] Work Phone: Comment on above: . pH (U) 5.5 [pH] [facility] Work Phone: Comment on above: . Protein (U) [Mass/Vol] 10 mg/dL Abnormal Negative [facility] Work Phone: Comment on above: . RBC, UA 0-2 0 - 2 /[HPF] [facility] Work Phone: Comment on above: . Specific [place], Urine >1.030 Abnormal S [facility] Work Phone: Comment on above: . Squam Epithel, UA Negative 3 - 5 /[HPF] [facility] Work Phone: Comment on above: . Urobilinogen, Urine Normal Normal ( 0-1) mg/dL [facility] Work Phone: Comment on above: . WBC, UA 0-2 0 - 5 /[HPF] [facility] Work Phone: Comment on above: . Test Performed by [facility], [address] [place], [place] [id number] [place] [address] LAB [facility] Work Phone: XR RIBS RIGHT INCLUDE CHEST (MIN 3 VIEWS)on 09-25-2021 Patient Name: SEE PARIS Diagnostic Radiology ACCESSION EXAM DATE/TIME PROCEDURE ORDERING PROVIDER [id number] 09/25/2021 04:42 EDT CR Ribs w/ PA Chest [id number] -KITRUPTI ZAIDA Right CPT code 72865 Reason For Exam (CR Ribs w/ PA Chest Right) chest wall tenderness on right lower rib cage Report RIGHT RIB SERIES WITH CHEST: INDICATION: Chest wall tenderness COMPARISON: No previous studies are available for comparison. Examination of right ribs was obtained with three views. An additional PA view of the chest was obtained. Evaluation of the right ribs demonstrate no evidence of fracture. There is no pleural thickening nor is there abnormality of the underlying pulmonary parenchyma. The heart and mediastinum to the extent of visualization are unremarkable. The right lung apex is clear. IMPRESSION: Negative right ribs. Report Dictated on --- Final --- Dictating Physician: DO PENA ALFRED Signed Date and Time: 09/25/2021 5:03 am Signed by: DO PENA ALFRED Transcribed Date and Time: 09/25/2021 5:04 [facility] Lawrence Pena DO - 09/25/2021 Patient Name: SEE PARIS Diagnostic Radiology ACCESSION EXAM DATE/TIME PROCEDURE ORDERING PROVIDER [id number] 09/25/2021 04:42 EDT CR Ribs w/ PA Chest [id number] -ZAIDA MONTEJO Right CPT code 10127 Reason For Exam (CR Ribs w/ PA Chest Right) chest wall tenderness on right lower rib cage Report RIGHT RIB SERIES WITH CHEST: INDICATION: Chest wall tenderness COMPARISON: No previous studies are available for comparison. Examination of right ribs was obtained with three views. An additional PA view of the chest was obtained. Evaluation of the right ribs demonstrate no evidence of fracture. There is no pleural thickening nor is there abnormality of the underlying pulmonary parenchyma. The heart and mediastinum to the extent of visualization are unremarkable. The right lung apex is clear. IMPRESSION: Negative right ribs. Report Dictated on --- Final --- Dictating Physician: DO PENA ALFRED Signed Date and Time: 09/25/2021 5:03 am Signed by: DO PENA ALFRED Transcribed Date and Time: 09/25/2021 5:04 [facility] Work Phone: Radiology Study observation (narrative) [facility] Work Phone: XR RIBS RIGHT INCLUDE CHEST (MIN 3 VIEWS)Ordered By: Lawrence Pena on 09-25-2021 [facility] Work Phone: CR Chest Portableon 08-23-19 CR Chest Portable [facility]: [id number] Radiology ACCESSION EXAM DATE/TIME PROCEDURE ORDERING PROVIDER [id number] 08/22/2021 08:52 EDT CR Chest Portable MD MONTES DE [facility]CA [place] CPT code 45178 Reason For Exam (CR Chest Portable) cough x1wk Report Examination: Portable Chest, 0852 hours 08/22/2021. Comparison: None. Reason For Study: Cough x1 week. Support Devices: None. Findings/Interpretat ion: 1. Lungs are well-aerated. 2. No evidence of pneumonia or other acute pathology. Report Dictated on Final Dictating Physician: MD JOSE B NELSON Signed Date and Time: 08/22/2021 9:11 am Signed by: MD JOSE B NELSON Transcribed Date and Time: 08/22/2021 9:12 Normal [facility] ED Provider Noteon ED Provider Note Emergency Department Encounter [facility] ED Patient: See Paris : 1945 Date of Evaluation: 08/22/2021 ED Provider: Kwabena Montes De Oca MD Chief Complaint Chief Complaint Patient presents with ? Cough x1 week has been seen for this recently [place] I wore appropriate PPE for the entirety of this encounter. Does this patient come from an ECF, SNF, Rehab, Shelter or other Congregate setting: no (If yes to above patient needs a Covid-19 test) See Paris is a 76 y.o. male who presents to the emergency department complaining of cough for the past week, was seen for this recently, not on any medication right now. He says he has recurrence of his prostate cancer and is not undergoing treatment right now. It is intermittently productive, no fevers. ROS: 14 systems reviewed and otherwise acutely negative except as in the [place]. Past History Past Medical History: Diagnosis Date ? Cancer (HCC) ? Diverticula, colon ? Hypertension ? Reflex abnormality Past Surgical History: Procedure Laterality Date ? KNEE SURGERY ? PROSTATECTOMY ? SHOULDER SURGERY Social History Socioeconomic History ? Marital status: Spouse name: None ? Number of children: None ? Years of education: None ? Highest education level: None Occupational History ? None Tobacco Use ? Smoking status: Former Smoker ? Smokeless tobacco: Never Used Substance and Sexual Activity ? Alcohol use: Never ? Drug use: No ? Sexual activity: None Other Topics Concern ? None Social History Narrative ? None Social Determinants of Health Financial Resource Strain: ? Difficulty of Paying Living Expenses: Not on file Food Insecurity: ? Worried About Running Out of Food in the Last Year: Not on file ? Ran Out of Food in the Last Year: Not on file Transportation Needs: ? Lack of Transportation (Medical): Not on file ? Lack of Transportation (Non-Medical): Not on file Physical Activity: ? Days of Exercise per Week: Not on file ? Minutes of Exercise per Session: Not on file Stress: ? Feeling of Stress : Not on file Social Connections: ? Frequency of Communication with Friends and Family: Not on file ? Frequency of Social Gatherings with Friends and Family: Not on file ? Attends [employer] Services: Not on file ? Active Member of Clubs or Organizations: Not on file ? Attends Club or Organization Meetings: Not on file ? Marital Status: Not on file Intimate Partner Violence: ? Fear of Current or Ex-Partner: Not on file ? Emotionally Abused: Not on file ? Physically Abused: Not on file ? Sexually Abused: Not on file Housing Stability: ? Unable to Pay for Housing in the Last Year: Not on file ? Number of Places Lived in the Last Year: Not on file ? Unstable Housing in the Last Year: Not on file Medications/Allergie s Previous Medications AMLODIPINE (NORVASC) 5 MG TABLET Take 5 mg by mouth daily BICALUTAMIDE (CASODEX) 50 MG CHEMO TABLET TAKE 1 TABLET BY MOUTH EVERY DAY CALCIUM CARBONATE 600 MG TABS TABLET Take 1 tablet by mouth daily DOXAZOSIN (CARDURA) 2 MG TABLET Take 2 mg by mouth nightly OMEPRAZOLE (PRILOSEC) 20 MG CAPSULE Take 20 mg by mouth daily Allergies Allergen Reactions ? Morphine Nausea Only ? Oxycodone Nausea Only Physical Exam ED Triage Vitals [08/22/21 0831] BP Temp Temp Source Pulse Resp SpO2 Height Weight (!) 162/108 97.2 ?F (36.2 ?C) Oral 72 18 97 % -- -- GENERAL: The patient appears nourished and normally developed. Vital signs as documented. EYES: Head exam is unremarkable. No scleral icterus or orbital trauma noted. HEENT: Mucous membranes moist. Nares patent without copious rhinorrhea. No enlarged lymphadenopathy. LUNGS: Lungs are clear to auscultation, without any respiratory distress. CARDIAC: Rhythm is regular. No dysrythmias or murmurs. ABDOMEN: Nontender with no obvious masses, and no peritoneal signs. EXTREMITIES: Non edematous, with no obvious deformities. SKIN: Good color, with no significant rashes. No pallor. NEURO: No obvious neurological deficits, normal sensation and strength bilaterally. Diagnostics Labs: Results for orders placed or performed during the hospital encounter of 08/22/21 COVID-19, Flu A/B, and RSV Combo Specimen: Nasopharyngeal nasopharyngeal Result Value Ref Range SARS-CoV-2 Not Detected. Influenza A by PCR Not Detected. Influenza B by PCR Not Detected. RSV PCR (A) DETECTED Expected Result: Not Detected _ Method: Real-time, RT-PCR This assay was developed by [employer] and distributed under an Emergency Use Authorization (EUA) granted by the FDA for the qualitative detection of nucleic acids from SARS-CoV-2, Influenza A, Influenza B, and Respiratory Syncytial Virus. Provider and patient fact sheets can be found at https://www.fda.gov/ media/157613/downloa d and https://www.fda.gov/ media/016736/downloa d. Radiographs: XR CHEST PORTABLE Result Da (more content not included)... Normal [facility] SARS-CoV-2, Flu A/B and RSVo n 08-22-2021 SARS-CoV-2 (COVID-19) RNA KIESHA+probe Ql (Unsp spec) SARS-CoV-2 --> Status: F Not Detected. Flu A PCR --> Status: F Not Detected. Flu B PCR --> Status: F Not Detected. RSV PCR --> Status: F DETECTED Expected Result: Not Detected _ Method: Real-time, RT-PCR This assay was developed by [employer] and distributed under an Emergency Use Authorization (EUA) granted by the FDA for the qualitative detection of nucleic acids from SARS-CoV-2, Influenza A, Influenza B, and Respiratory Syncytial Virus. Provider and patient fact sheets can be found at https://www.fda.gov/ media/517950/downloa d and https://www.fda.gov/ media/257703/downloa d. Expected Result: Not Detected _ Method: Real-time, RT-PCR This assay was developed by [employer] and distributed under an Emergency Use Authorization (EUA) granted by the FDA for the qualitative detection of nucleic acids from SARS-CoV-2, Influenza A, Influenza B, and Respiratory Syncytial Virus. Provider and patient fact sheets can be found at https://www.fda.gov/ media/514055/downloa d and https://www.fda.gov/ media/783769/downloa d. Abnormal [facility] Comment on above: Performed By: #### C VFLR ####[facility] [place] [address], [address] Otheron 07-13-2020 Testosterone [Mass/Vol] 472 ng/dL 250 - 827 ng/dL [facility] XR CERVICAL SPINE W OBLIQUES FLEXION AND EXTENSIONon 06-29-2020 Patient Name: SEE PARIS Diagnostic Radiology ACCESSION EXAM DATE/TIME PROCEDURE ORDERING PROVIDER [id number] 06/29/2020 14:14 EST CR Spine Cervical Comp RANJIT, DO, JERMAINE D w/ Obliques CPT code 34646 Reason For Exam (CR Spine Cervical Comp w/ Obliques) neck pain Report HISTORY neck pain Frontal lateral bilateral oblique and odontoid views of the cervical spine with lateral flexion-extension views. FINDINGS: Mild degenerative disc changes are seen with disc space narrowing especially at C6-C7 level. Hypertrophic facet degenerative changes are seen bilaterally throughout the cervical spine with no high-grade neural foraminal narrowing seen. No unusual mobility is seen with lateral flexion-extension views Report Dictated on Workstation: [id number] --- Final --- Dictating Physician: MD HEAD WILLIAM Signed Date and Time: 06/29/2020 9:04 pm Signed by: MD HEAD WILLIAM Transcribed Date and Time: 06/29/2020 9:05 [facility] Work Phone: [facility], [facility] Incoming Radiology Results From [facility] - 06/29/2020 9:05 PM EST Patient Name: SEE PARIS Diagnostic Radiology ACCESSION EXAM DATE/TIME PROCEDURE ORDERING PROVIDER [id number] 06/29/2020 14:14 EST CR Spine Cervical Comp RANJIT, DO, JERMAINE D w/ Obliques CPT code 03433 Reason For Exam (CR Spine Cervical Comp w/ Obliques) neck pain Report HISTORY neck pain Frontal lateral bilateral oblique and odontoid views of the cervical spine with lateral flexion-extension views. FINDINGS: Mild degenerative disc changes are seen with disc space narrowing especially at C6-C7 level. Hypertrophic facet degenerative changes are seen bilaterally throughout the cervical spine with no high-grade neural foraminal narrowing seen. No unusual mobility is seen with lateral flexion-extension views Report Dictated on Workstation: [id number] --- Final --- Dictating Physician: MD HEAD WILLIAM Signed Date and Time: 06/29/2020 9:04 pm Signed by: MD HEAD WILLIAM Transcribed Date and Time: 06/29/2020 9:05 [facility] Work Phone: Otheron 02-23-2020 Testosterone [Mass/Vol] 479 ng/dL 250 - 827 ng/dL [facility] Clinical Summary: HMSAlida IDon 12-03-2019 O[facility] Work Phone: Office Visit: New/Est - 1st visit with physician, Rm: 41on 12-03-2019 NEGATED: Highlighted rowxray history of the lumbar spine on 11/02/2019 at [facility] Work Phone: XR Lumbosacral W Obliques Fl ex and [place] 11-02-2019 Patient Name: SEE PARIS ---Diagnostic Radiology--- Exam Date/Time 11/02/2019 13:45:00 EDT Exam CR Spine Lumbosacral Complete w/ Bending Ordering Physician DO CHURCH JOSHUA D Accession Number [id number] CPT4 Codes 54942 () Reason For Exam lumbago with bilateral sciatica Report LUMBAR SPINE, FIVE VIEWS, WITH ADDITIONAL FLEXION-EXTENSION VIEWS: CLINICAL INFORMATION: Low back pain COMPARISON: None Frontal, bilateral obliques, flexion-extension and neutral lateral and coned down lumbosacral spot views of the lumbar spine were obtained. There are 5 typical lumbar vertebrae. The bone mineral density is normal. The vertebral body heights are within normal limits. Disk space narrowing is present at L1-L2, L2-L3 and L5-S1. There is 1.6 cm anterolisthesis at L5-S1. No instability is noted with flexion or extension. The facet joints are within normal limits. No fracture is noted. IMPRESSION: Arthritic changes multilevel disc space narrowing as well as 1.6 cm of anterolisthesis of L5-S1. Report Dictated on Workstation: [id number] --- Final --- Dictating Physician: DO PENA ALFRED Signed Date and Time: 11/02/2019 3:15 pm Signed by: DO PENA ALFRED Transcribed Date and Time: 11/02/2019 3:16 [place], [place] [facility]coming [facility] - 11/02/2019 3:16 PM EDT Patient Name: SEE PARIS ---Diagnostic Radiology--- Exam Date/Time 11/02/2019 13:45:00 EDT Exam CR Spine Lumbosacral Complete w/ Bending Ordering Physician DO CHURCH JOSHUA D Accession Number [id number] CPT4 Codes 16501 () Reason For Exam lumbago with bilateral sciatica Report LUMBAR SPINE, FIVE VIEWS, WITH ADDITIONAL FLEXION-EXTENSION VIEWS: CLINICAL INFORMATION: Low back pain COMPARISON: None Frontal, bilateral obliques, flexion-extension and neutral lateral and coned down lumbosacral spot views of the lumbar spine were obtained. There are 5 typical lumbar vertebrae. The bone mineral density is normal. The vertebral body heights are within normal limits. Disk space narrowing is present at L1-L2, L2-L3 and L5-S1. There is 1.6 cm anterolisthesis at L5-S1. No instability is noted with flexion or extension. The facet joints are within normal limits. No fracture is noted. IMPRESSION: Arthritic changes multilevel disc space narrowing as well as 1.6 cm of anterolisthesis of L5-S1. Report Dictated on Workstation: [id number] --- Final --- Dictating Physician: DO PENA ALFRED Signed Date and Time: 11/02/2019 3:15 pm Signed by: DO PENA ALFRED Transcribed Date and Time: 11/02/2019 3:16 [place] MRA BRAIN WO IVCONon 019 MRA BRAIN WO IVCON * * *Final Report* * * DATE OF EXAM: Jan 20 2019 9:00AM [place] 0272 - MRA BRAIN WO IVCON / PROCEDURE REASON: Vertigo * * * * Physician Interpretation * * * * EXAMINATION: MRI BRAIN WO IVCON, MRA BRAIN WO IVCON, MRA CAROTID WO IVCON CLINICAL HISTORY: Dizziness x4 days TECHNIQUE: Routine noncontrast MRI brain protocol including diffusion images. Intracranial and extracranial 3D qice-aq-rjfyuf MRA. 3D maximum intensity projection images were created, reviewed and archived . MQ: MRAB_4 COMPARISON: 01/17/[address] RESULT: BRAIN: Acute Change: No evidence of restricted diffusion indicating acute infarction Hemorrhage: No evidence of prior parenchymal hemorrhage on the gradient echo images. Mass Lesion/ Mass Effect: No evidence of an intracranial mass or extra-axial fluid collection. No significant mass effect. Chronic Change: The white matter is within normal limits of signal intensity for age. Parenchyma: No significant volume loss for age. The brain parenchyma is otherwise within normal limits of signal intensity and morphology. Ventricles: Normal caliber and morphology. Skull Base: Hypothalamic and pituitary region are grossly normal. Craniocervical junction is normal. No significant marrow replacement process. Vasculature: Major intracranial arterial structures, and dural venous sinuses show typical flow void, suggesting patency by spin echo criteria. Other: The visualized paranasal sinuses and mastoid air cells are clear. The orbits and extracranial soft tissues are unremarkable. INTRACRANIAL MRA: No evidence of an aneurysm, occlusion or stenosis of the anterior or posterior intracranial circulation. No evidence of dural venous sinus thrombosis. Extracranial MRA: Vertebral arteries are patent. No evidence of measurable or flow-limiting stenosis while the carotid bifurcations utilizing NASCET criteria IMPRESSION: 1. Negative MRI of the brain. 2. Negative MRA head and neck Exhaust Tender: KELLY Transcribe Date/Time: Jan 20 2019 9:49A Dictated by : AUGUST GARCIA MD This examination was interpreted and the report reviewed and electronically signed by: AUGUST GARCIA MD on Jan 20 2019 10:15AM EST Normal [facility] MRA CAROTID WO IVCONon 01-20 MRA CAROTID WO IVCON * * *Final Report* * * DATE OF EXAM: Jan 20 2019 9:00AM [facility] 0275 - MRA CAROTID WO IVCON / PROCEDURE REASON: Vertigo * * * * Physician Interpretation * * * * EXAMINATION: MRI BRAIN WO IVCON, MRA BRAIN WO IVCON, MRA CAROTID WO IVCON CLINICAL HISTORY: Dizziness x4 days TECHNIQUE: Routine noncontrast MRI brain protocol including diffusion images. Intracranial and extracranial 3D bnjl-mw-einicf MRA. 3D maximum intensity projection images were created, reviewed and archived . MQ: MRAB_4 COMPARISON: 01/17/[address] RESULT: BRAIN: Acute Change: No evidence of restricted diffusion indicating acute infarction Hemorrhage: No evidence of prior parenchymal hemorrhage on the gradient echo images. Mass Lesion/ Mass Effect: No evidence of an intracranial mass or extra-axial fluid collection. No significant mass effect. Chronic Change: The white matter is within normal limits of signal intensity for age. Parenchyma: No significant volume loss for age. The brain parenchyma is otherwise within normal limits of signal intensity and morphology. Ventricles: Normal caliber and morphology. Skull Base: Hypothalamic and pituitary region are grossly normal. Craniocervical junction is normal. No significant marrow replacement process. Vasculature: Major intracranial arterial structures, and dural venous sinuses show typical flow void, suggesting patency by spin echo criteria. Other: The visualized paranasal sinuses and mastoid air cells are clear. The orbits and extracranial soft tissues are unremarkable. INTRACRANIAL MRA: No evidence of an aneurysm, occlusion or stenosis of the anterior or posterior intracranial circulation. No evidence of dural venous sinus thrombosis. Extracranial MRA: Vertebral arteries are patent. No evidence of measurable or flow-limiting stenosis while the carotid bifurcations utilizing NASCET criteria IMPRESSION: 1. Negative MRI of the brain. 2. Negative MRA head and neck Exhaust Tender: KELLY Transcribe Date/Time: Jan 20 2019 9:49A Dictated by : AUGUST GARCIA MD This examination was interpreted and the report reviewed and electronically signed by: AUGUST GARCIA MD on Jan 20 2019 10:15AM EST Normal [facility] MRI BRAIN WO IVCONon 019 MRI BRAIN WO IVCON * * *Final Report* * * DATE OF EXAM: Jan 20 2019 9:00AM [facility] 0294 - MRI BRAIN WO IVCON / PROCEDURE REASON: Vertigo * * * * Physician Interpretation * * * * EXAMINATION: MRI BRAIN WO IVCON, MRA BRAIN WO IVCON, MRA CAROTID WO IVCON CLINICAL HISTORY: Dizziness x4 days TECHNIQUE: Routine noncontrast MRI brain protocol including diffusion images. Intracranial and extracranial 3D [id number] MRA. 3D maximum intensity projection images were created, reviewed and archived . MQ: MRAB_4 COMPARISON: 01/17/[address] RESULT: BRAIN: Acute Change: No evidence of restricted diffusion indicating acute infarction Hemorrhage: No evidence of prior parenchymal hemorrhage on the gradient echo images. Mass Lesion/ Mass Effect: No evidence of an intracranial mass or extra-axial fluid collection. No significant mass effect. Chronic Change: The white matter is within normal limits of signal intensity for age. Parenchyma: No significant volume loss for age. The brain parenchyma is otherwise within normal limits of signal intensity and morphology. Ventricles: Normal caliber and morphology. Skull Base: Hypothalamic and pituitary region are grossly normal. Craniocervical junction is normal. No significant marrow replacement process. Vasculature: Major intracranial arterial structures, and dural venous sinuses show typical flow void, suggesting patency by spin echo criteria. Other: The visualized paranasal sinuses and mastoid air cells are clear. The orbits and extracranial soft tissues are unremarkable. INTRACRANIAL MRA: No evidence of an aneurysm, occlusion or stenosis of the anterior or posterior intracranial circulation. No evidence of dural venous sinus thrombosis. Extracranial MRA: Vertebral arteries are patent. No evidence of measurable or flow-limiting stenosis while the carotid bifurcations utilizing NASCET criteria IMPRESSION: 1. Negative MRI of the brain. 2. Negative MRA head and neck Exhaust Tender: KELLY Transcribe Date/Time: Jan 20 2019 9:49A Dictated by : AUGUST GARCIA MD This examination was interpreted and the report reviewed and electronically signed by: AUGUST GARCIA MD on Jan 20 2019 10:15AM EST Normal [facility] Basic Panelon 01-18-2019 Creatinine [Mass/Vol] 1.10 mg/dL Normal 0.67-1.17 [facility] Comment on above: Performed By: #### C BCD1 #### [facility] [address] [place], [place] [address] Anion gap [Moles/Vol] 8 mmol/L Normal 8-16 [facility] Comment on above: Performed By: #### C BCD1 #### [facility] [address] [place], [place] [address] Calcium [Mass/Vol] 8.2 mg/dL Low 8.5-10.1 [facility] Comment on above: Performed By: #### C BCD1 #### [facility] [address] [place], [place] [address] CO2 [Moles/Vol] 24 mmol/L Normal 21-[address] [facility] Comment on above: Performed By: #### C BCD1 #### [facility] [address] [place], [place] [address] Glucose [Mass/Vol] 96 mg/dL Normal 70-99 [facility] Comment on above: Performed By: #### C BCD1 #### [facility] [address] [place], [place] [address] Urea nitrogen [Mass/Vol] 15 mg/dL Normal 7-18 [facility] Comment on above: Performed By: #### C BCD1 #### [facility] [address] [place], [place] [address] Chloride [Moles/Vol] 113 mmol/L High 98-107 [facility] Comment on above: Performed By: #### C BCD1 #### [facility] [address] [place], [place] [address] Potassium [Moles/Vol] 3.9 mmol/L Normal 3.5-5.1 [facility] Comment on above: Performed By: #### C BCD1 #### [facility] [address] [place] [address] Sodium [Moles/Vol] 141 mmol/L Normal 136-145 [facility] Comment on above: Performed By: #### C BCD1 #### [facility] [address] [place] [address] Hemogramon 01-18-2019 Erythrocyte distribution width (RBC) [Ratio] 13.0 % Normal 11.6-14.4 [facility] Comment on above: Performed By: #### C BC1 #### [facility] [address] [place], [place] [address] Hematocrit (Bld) [Volume fraction] 41.2 % Normal 40.1-51.0 [facility] Comment on above: Performed By: #### C BC1 #### [facility] [address] [place], [place] [address] Hemoglobin (Bld) [Mass/Vol] 13.7 g/dL Normal 13.7-17.5 [facility] Comment on above: Performed By: #### C BC1 #### [facility] [address] [place], [place] [address] MCH (RBC) [Entitic mass] 31.5 pg Normal 25.7-32.2 [facility] Comment on above: Performed By: #### C BC1 #### [facility] [address] [place], [place] [address] MCHC (RBC) [Mass/Vol] 33.3 % Normal 32.3-36.5 [facility] Comment on above: Performed By: #### C BC1 #### [facility] [address] [place] [address] MCV (RBC) [Entitic vol] 94.7 fL Normal 83.2-95.6 [facility] Comment on above: Performed By: #### C BC1 #### [facility] [address] [place] [address] Platelet mean volume (Bld) [Entitic vol] 9.3 fL Normal 8.7-12.0 [facility] Comment on above: Performed By: #### C BC1 #### [facility] [address] [place] [address] Platelets (Bld) [#/Vol] 120 thou/cmm Low 141-365 [facility] Comment on above: Performed By: #### C BC1 #### [facility] [address] [place] [address] RBC (Bld) [#/Vol] 4.35 mil/cmm Low 4.63-6.08 [facility] Comment on above: Performed By: #### C BC1 #### [facility] [address] [place] [address] RDW SD 44.4 fl Normal 36.1-45.8 [facility] Comment on above: Performed By: #### C BC1 #### [facility] [address] [place] [address] WBC (Bld) [#/Vol] 5.78 thou/cmm Normal 4.23-9.07 [facility] Comment on above: Performed By: #### C BC1 #### [facility] [address] [place] [address] MDRD GFRon 01-18-2019 GFR/1.73 sq M predicted among non-blacks MDRD (S/P/Bld) [Vol rate/Area] mL/min/{1.73_m2} Normal >60mL/min/1. 73m2 [facility] Comment on above: Result Comment: If t he patient is , multiply the result by 1.210. Performed By: #### G FR #### [facility] [address] [place], [place] [address] Magnesium Bloodon 01-18-2019 Magnesium [Mass/Vol] 2.0 mg/dL Normal 1.6-2.6 [facility] Comment on above: Performed By: #### C BCD1 #### [facility] [address] [place], [place] [address] CT BRAIN WO IVCONon 01-18-[address] BRAIN WO IVCON * * *Final Report* * * DATE OF EXAM: Jan 17 2019 11:35AM [facility] - CT BRAIN WO IVCON / PROCEDURE REASON: Dizziness * * * * Physician Interpretation * * * * BRAIN CT WITHOUT CONTRAST ENHANCEMENT Serial transverse images of the brain were obtained without contrast material. The study was performed to evaluate dizziness. CT Dose-Length Product (DLP): 848 mGy*cm CT Dose Reduction Employed: mAs or kVp was manually adjusted based on either the patient size or age Serial images demonstrate no definite evidence of acute infarction, hemorrhage, mass lesion, or midline shift. The overall size of the ventricular system is within normal limits. IMPRESSION: Within normal limits for the patient's age as described above. Exhaust Tender: KELLY Transcribe Date/Time: Jan 17 2019 11:49A Dictated by : BERNICE GASCA MD This examination was interpreted and the report reviewed and electronically signed by: BERNICE GASCA MD on Jan 17 2019 12:07PM EST Normal [facility] Comprehensive Panelon 2018 ALP [Catalytic activity/Vol] 51 U/L Normal 45-117 [facility] Comment on above: Performed By: #### P 14 #### [facility] [address] [place], [place] [address] Bilirubin [Mass/Vol] 0.6 mg/dL Normal 0.2-1.0 [facility] Comment on above: Performed By: #### P 14 #### [facility] [address] [place], [place] [address] Protein [Mass/Vol] 6.9 g/dL Normal 6.4-8.2 [facility] Comment on above: Performed By: #### P 14 #### [facility] [address] [place], [place] [address] ALT [Catalytic activity/Vol] 22 U/L Normal 12-78 [facility] Comment on above: Performed By: #### P 14 #### [facility] [address] [place], [place] [address] AST [Catalytic activity/Vol] 19 U/L Normal 15-37 [facility] Comment on above: Performed By: #### P 14 #### [facility] [address] [place], [place] [address] Creatinine [Mass/Vol] 1.03 mg/dL Normal 0.67-1.17 [facility] Comment on above: Performed By: #### P 14 #### [facility] [address] [place], [place] [address] Albumin [Mass/Vol] 3.7 g/dL Normal 3.4-5.0 [facility] Comment on above: Performed By: #### P 14 #### [facility] [address] [place], [place] [address] Anion gap [Moles/Vol] 11 mmol/L Normal 8-16 [facility] Comment on above: Performed By: #### P 14 #### [facility] [address] [place], [place] [address] CO2 [Moles/Vol] 26 mmol/L Normal 21-[address] [facility] Comment on above: Performed By: #### P 14 #### [facility] [address] [place], [place] [address] Glucose [Mass/Vol] 97 mg/dL Normal 70-99 [facility] Comment on above: Performed By: #### P 14 #### [facility] [address] [place], [place] [address] Urea nitrogen [Mass/Vol] 18 mg/dL Normal 7-18 [facility] Comment on above: Performed By: #### P 14 #### [facility] [address] [place], [place] [address] Calcium [Mass/Vol] 8.6 mg/dL Normal 8.5-10.1 [facility] Comment on above: Performed By: #### P 14 #### [facility] [address] [place] [address] Chloride [Moles/Vol] 110 mmol/L High 98-107 [facility] Comment on above: Performed By: #### P 14 #### [facility] [address] [place] [address] Potassium [Moles/Vol] 4.0 mmol/L Normal 3.5-5.1 [facility] Comment on above: Performed By: #### P 14 #### [facility] [address] [place] [address] Sodium [Moles/Vol] 143 mmol/L Normal 136-145 [facility] Comment on above: Performed By: #### P 14 #### [facility] [address] [place] [address] Folateon 01-17-2019 Folate 19.80 ng/mL High 3.10-17.50 [facility] Comment on above: Performed By: #### F OL #### [facility] [address] [place] [address] Hemogram/Diffon 01-17-2019 Abs Immature Grans 0.03 thou/cmm Normal 0.00-0.05 [facility] Comment on above: Performed By: #### C BCD1 #### [facility] [address] [place] [address] Abs Neut (ANC) 4.63 thou/cmm Normal 1.78-5.[address] [facility] Comment on above: Performed By: #### C BCD1 #### [facility] [address] [place] [address] Abs. Baso 0.02 thou/cmm Normal 0.01-0.08 [facility] Comment on above: Performed By: #### C BCD1 #### [facility] [address] [place] [address] Abs. Barber 0.42 thou/cmm Normal 0.30-0.82 [facility] Comment on above: Performed By: #### C BCD1 #### [facility] [address] [place], [place] [address] Basophils/100 WBC (Bld) 0.3 % Normal [facility] Comment on above: Performed By: #### C BCD1 #### [facility] [address] [place], [place] [address] Eosinophils (Bld) [#/Vol] 0.08 thou/cmm Normal 0.04-0.54 [facility] Comment on above: Performed By: #### C BCD1 #### [facility] [address] [place], [place] [address] Eosinophils/100 WBC (Bld) 1.4 % Normal [facility] Comment on above: Performed By: #### C BCD1 #### [facility] [address] [place], [place] [address] Erythrocyte distribution width (RBC) [Ratio] 13.0 % Normal 11.6-14.4 [facility] Comment on above: Performed By: #### C BCD1 #### [facility] [address] [place] [address] Hematocrit (Bld) [Volume fraction] 46.8 % Normal 40.1-51.0 [facility] Comment on above: Performed By: #### C BCD1 #### [facility] [address] [place], [place] [address] Hemoglobin (Bld) [Mass/Vol] 15.5 g/dL Normal 13.7-17.5 [facility] Comment on above: Performed By: #### C BCD1 #### [facility] [address] [place] [address] Immature Grans 0.50 % Normal [facility] Comment on above: Performed By: #### C BCD1 #### [facility] [address] [place], [place] [address] Lymphocytes (Bld) [#/Vol] 0.74 thou/cmm Low 0.84-2.85 [facility] Comment on above: Performed By: #### C BCD1 #### [facility] [address] [place], [place] [address] Lymphocytes/100 WBC (Bld) 12.5 % Normal [facility] Comment on above: Performed By: #### C BCD1 #### [facility] [address] [place], [place] [address] MCH (RBC) [Entitic mass] 31.1 pg Normal 25.7-32.2 [facility] Comment on above: Performed By: #### C BCD1 #### [facility] [address] [place], [place] [address] MCHC (RBC) [Mass/Vol] 33.1 % Normal 32.3-36.5 [facility] Comment on above: Performed By: #### C BCD1 #### [facility] [address] [place] [address] MCV (RBC) [Entitic vol] 93.8 fL Normal 83.2-95.6 [facility] Comment on above: Performed By: #### C BCD1 #### [facility] [address] [place] [address] Monocytes/100 WBC (Bld) 7.1 % Normal [facility] Comment on above: Performed By: #### C BCD1 #### [facility] [address] [place] [address] Platelet mean volume (Bld) [Entitic vol] 9.6 fL Normal 8.7-12.0 [facility] Comment on above: Performed By: #### C BCD1 #### [facility] [address] [place] [address] Platelets (Bld) [#/Vol] 125 thou/cmm Low 141-365 [facility] Comment on above: Performed By: #### C BCD1 #### [facility] [address] [place] [address] RBC (Bld) [#/Vol] 4.99 mil/cmm Normal 4.63-6.08 [facility] Comment on above: Performed By: #### C BCD1 #### [facility] [address] [place] [address] RDW SD 44.1 fl Normal 36.1-45.8 [facility] Comment on above: Performed By: #### C BCD1 #### [facility] [address] [place] [address] Seg Neutrophil 78.2 % Normal [facility] Comment on above: Performed By: #### C BCD1 #### [facility] [address] [place] [address] WBC (Bld) [#/Vol] 5.92 thou/cmm Normal 4.23-9.07 [facility] Comment on above: Performed By: #### C BCD1 #### [facility] [address] [place] [address] TSH, 3rd generationon 2018 TSH, 3rd generation 2.580 uIU/mL Normal 0.358-3.740 [facility] Comment on above: Performed By: #### T SH3 #### [place] [address] Urinalysis Routineon 019 Bacteria LM.HPF (Urine sed) [#/Area] NONE Normal None [facility] Comment on above: Performed By: #### U RIN2 #### [place] [address] Ep Cells Urine 0.1 /hpf Normal 0.0-5.0 [facility] Comment on above: Performed By: #### U RIN2 #### [place] [address] Hyaline Cast 0.0 /lpf Normal 0.0-1.0 [facility] Comment on above: Performed By: #### U RIN2 #### [place] [address] RBC LM.HPF (Urine sed) [#/Area] 4.6 /[HPF] Normal 0.0-5.0 [facility] Comment on above: Performed By: #### U RIN2 #### [place] [address] WBC LM.HPF (Urine sed) [#/Area] 0.3 /[HPF] Normal 0.0-5.0 [facility] Comment on above: Performed By: #### U RIN2 #### [place] [address] Appearance (U) CLEAR Normal [facility] Comment on above: Performed By: #### U RIN2 #### [facility] [address] [place] [address] Bilirubin (U) [Mass/Vol] Negative Normal Negative [facility] Comment on above: Performed By: #### U RIN2 #### [facility] [address] [place] [address] Color (U) YELLOW Normal [facility] Comment on above: Performed By: #### U RIN2 #### [facility] [address] [place] [address] Glucose Ql (U) Negative Normal Negative [facility] Comment on above: Performed By: #### U RIN2 #### [facility] [address] [place] [address] Hemoglobin,Urine Negative Normal Negative [facility] Comment on above: Performed By: #### U RIN2 #### [place] [address] Ketone Urine Negative Normal Negative [facility] Comment on above: Performed By: #### U RIN2 #### [facility] [address] [place] [address] Leukocytes Esterase Negative Normal Negative [facility] Comment on above: Performed By: #### U RIN2 #### [facility] [address] [place] [address] Nitrites Urine Negative Normal Negative [facility] Comment on above: Performed By: #### U RIN2 #### [facility] [address] [place] [address] pH (U) 8.5 [pH] Abnormal 5.0-8.0 [facility] Comment on above: Performed By: #### U RIN2 #### [facility] [address] [place] [address] Protein (U) [Mass/Vol] Negative Normal Negative [facility] Comment on above: Performed By: #### U RIN2 #### [facility] [address] [place] [address] Specific [place], Ur 1.020 Normal 1.005-1.030 [facility] Comment on above: Performed By: #### U RIN2 #### [facility] [address] [place], [place] [address] Urobilinogen,Ur 0.2 EU/dL Normal 0.2-1.[address] [facility] Comment on above: Performed By: #### U RIN2 #### [facility] [address] [place], [place] [address] Vitamin B12on 01-17-2019 Cobalamin (Vitamin B12) [Mass/Vol] 332 pg/mL Normal 193-986 [facility] Comment on above: Performed By: #### B 12 #### [facility] [address] [place], [place] [address] XR CHEST 2V FRONTAL/LATon XR CHEST 2V FRONTAL/LAT * * *Final Repor t* * * DATE OF EXAM: Jan 17 2019 11:22AM [facility] 5291 - XR CHEST 2V FRONTAL/LAT / PROCEDURE REASON: Cough, new onset * * * * Physician Interpretation * * * * EXAMINATION: CHEST RADIOGRAPH (2 VIEW FRONTAL & LATERAL) CLINICAL HISTORY: Cough, new onset MQ: XC2_5 Comparison: None RESULT: Lines, tubes, and devices: None. Lungs and pleura: No consolidation. No lung mass. No pleural effusion. Cardiomediastinal silhouette: Normal cardiomediastinal silhouette. Other: None IMPRESSION: No acute radiographic abnormality. Exhaust Tender: KELLY Transcribe Date/Time: Jan 17 2019 11:28A Dictated by : DEMETRA VIDAL MD This examination was interpreted and the report reviewed and electronically signed by: DEMETRA VIDAL MD on Jan 17 2019 11:29AM EST Normal [facility] SURGICAL PATHOLOGYon 07-18-2 017 BMI (Body Mass Index) Specimen #: [id number] Physician: Bernice Tamayo M.D. FI NAL DIAGNOSISRight eye lesion, excision - Intradermal nevus.[facility] [place]//12-06-19 Nazanin Patiño M.D.(Electronic Signature) SPE CIMEN SUBMITTEDA: RIGHT EYE CLINICAL DATABENIGN NEOPLASM OF RULGROSS DESCRIPTIONA. Received in formalin is a 0.2 x 0.1 x 0.1 cm shave of skin. The specimenis not sectioned. Totally submitted in formalin in one cassette.Gross examination performed at [facility], [address] [place] [address] 12/04/2016 2:08:54 PMPatient ID #: Date of Report: 12/06/2016Date of Procedure: 12/04/2016Date of Receipt: 12/04/2016Submitted by: Bernice Tamayo M.D.Location: Diagnostic interpretation performed at [facility], [address] [place] [address]. Normal [facility] Comment on above: Performed By: #### S ####See report for performing lab information. Otheron 12-04-2007 CONVERTED ELECTRONIC SIGNATURE ROLAND MEJIA M.D. 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 NO EXTRAPROSTATIC TUMOR EXTENSION OR SEMINAL VESICLE INVOLVEMENT BY TUMOR IS IDENTIFIED. RESECTION MARGINS ARE FREE OF TUMOR INVOLVEMENT. 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 COMMENT: By clinical history, the patient has undergone finesteride therapy. A single small focus of tumor measuring 1 to 2 mm is identified in the right lobe. In the left lobe, there are two foci measuring respectively 3 mm and 1.2 cm. Perineural invasion is present. No large or small vessel invasion by tumor is identified. The pathologic staging according to the AJCC Cancer Staging Manual, 6th Edition, is pT2c NX MX. A community health representative slide from this case (A7) was also reviewed by Dr. Bull Fisher. [facility] CONVERTED ORDERING PROVIDER Ordering Provider: MARY GONZALEZ [facility] Otheron 06-24-2002 CONVERTED ELECTRONIC SIGNATURE MARISA SELLERS M.D., PATHOLOGIST (Electronic signature on file) Final Signed Out: 06/24/2002 14:04 [facility] CONVERTED FINAL DIAGNOSIS A) PROSTATE, RIGHT, NEEDLE BIOPSY - NEGATIVE FOR MALIGNANCY. B) PROSTATE, LEFT LOBE, NEEDLE BIOPSY - NEGATIVE FOR MALIGNANCY. COMMENT: Both of the specimens are also reviewed by Drs. Scales and Wilmer and they concur with the diagnosis. [facility] CONVERTED ORDERING PROVIDER Ordering Provider: GALEN HAGER [facility] Vital Signs Date Time Vital Sign Value Performing Clinician Facility 09-23-2024 13:44-0400 Body height 177.8 cm Mary Gonzalez MD Work Phone: [facility] 09-23-2024 13:44-0400 Body mass index (BMI) [Ratio] 26.98 kg/m2 Mary Gonzalez MD Work Phone: [facility] 09-23-2024 13:44-0400 Body weight 85.28 kg Mary Gonzalez MD Work Phone: [facility] 09-23-2024 13:44-0400 Heart rate 90 /min Mary Gonzalez MD Work Phone: [facility] 09-23-2024 13:44-0400 SaO2% (BldA) [Mass fraction] 98 % Mary Gonzalez MD Work Phone: [facility] 09-05-2024 07:05-0400 Body temperature 97.6 [degF] Dr. Jermaine Church DO Work Phone: [facility] 09-05-2024 07:05-0400 Diastolic blood pressure 68 mm[Hg] Dr. Jermaine Church DO Work Phone: [facility] 09-05-2024 07:05-0400 Heart rate 59 /min Dr. Jermaine Church DO Work Phone: [facility] 09-05-2024 07:05-0400 Respiratory rate 14 /min Dr. Jermaine Church DO Work Phone: [facility] 09-05-2024 07:05-0400 SaO2% (BldA) [Mass fraction] 95 % Dr. Jermaine Church DO Work Phone: [facility] 09-05-2024 07:05-0400 Systolic blood pressure 141 mm[Hg] Dr. Jermaine Church DO Work Phone: [facility] 09-05-2024 05:22-0400 Body height 177.[address] Jermaine Church DO Work Phone: [facility] 09-05-2024 05:22-0400 Body mass index (BMI) [Ratio] 27.8 kg/m2 Dr. Jermaine Church DO Work Phone: [facility] 09-05-2024 05:22-0400 Body weight 88.[address] Jermaine Church DO Work Phone: [facility] 09-03-2024 06:59-0400 Body temperature 98.2 [degF] Dr. Jermaine Church DO Work Phone: [facility] 09-03-2024 06:59-0400 Diastolic blood pressure 77 mm[Hg] Dr. Jermaine Church DO Work Phone: [facility] 09-03-2024 06:59-0400 Heart rate 71 /min Dr. Jermaine Church DO Work Phone: [facility] 09-03-2024 06:59-0400 Respiratory rate 17 /min Dr. Jermaine Church DO Work Phone: [facility] 09-03-2024 06:59-0400 SaO2% (BldA) [Mass fraction] 97 % Dr. Jermaine Church DO Work Phone: [facility] 09-03-2024 06:59-0400 Systolic blood pressure 141 mm[Hg] Dr. Jermaine Church DO Work Phone: [facility] 09-03-2024 04:27-0400 Body height 177.[address] Jermaine Church DO Work Phone: [facility] 09-03-2024 04:27-0400 Body mass index (BMI) [Ratio] 28.2 kg/m2 Dr. Jermaine Church DO Work Phone: [facility] 09-03-2024 04:27-0400 Body weight 89.[address] Jermaine Church DO Work Phone: [facility] 08-18-2024 10:28-0400 Body height 177.8 cm Rafael Moncada ENVIRONMENTAL HEALTH SAFETY ENGINEER.DAMAGE ASSESSOR, DNP Work Phone: [facility] 08-18-2024 10:28-0400 Body mass index (BMI) [Ratio] 27.84 kg/m2 Rafael Moncada ENVIRONMENTAL HEALTH SAFETY ENGINEER.DAMAGE ASSESSOR, DNP Work Phone: [facility] 08-18-2024 10:28-0400 Body weight 88 kg Rafael Moncada ENVIRONMENTAL HEALTH SAFETY ENGINEER.DAMAGE ASSESSOR, DNP Work Phone: [facility] 08-08-2024 07:38-0400 Body temperature 97.9 [degF] Jimmy Kulkarni DDS Work Phone: [facility] 08-08-2024 07:38-0400 Diastolic blood pressure 74 mm[Hg] Jimmy Kulkarni DDS Work Phone: [facility] 08-08-2024 07:38-0400 Heart rate 55 /min Jimmy Kulkarni DDS Work Phone: [facility] 08-08-2024 07:38-0400 Respiratory rate 17 /min Jimmy Kulkarni DDS Work Phone: [facility] 08-08-2024 07:38-0400 SaO2% (BldA) [Mass fraction] 97 % Jimmy Kulkarni DDS Work Phone: [facility] 08-08-2024 07:38-0400 Systolic blood pressure 165 mm[Hg] Jimmy Kulkarni DDS Work Phone: [facility] 08-06-2024 05:00-0400 Body mass index (BMI) [Ratio] 27.58 kg/m2 Jimmy Kulkarni DDS Work Phone: [facility] 08-06-2024 05:00-0400 Body weight 87.18 kg Jimmy Kulkarni DDS Work Phone: [facility] 08-05-2024 08:30-0400 Body height 177.8 cm Jimmy Kulkarni DDS Work Phone: [facility] 06-14-2024 12:19-0500 Diastolic blood pressure 66 mm[Hg] Mejgon Corinne DO Work Phone: [facility] 06-14-2024 12:19-0500 Heart rate 64 /min Mejgon Corinne DO Work Phone: [facility] 06-14-2024 12:19-0500 Respiratory rate 16 /min Mejgon Corinne DO Work Phone: [facility] 06-14-2024 12:19-0500 SaO2% (BldA) [Mass fraction] 100 % Mejgon Corinne DO Work Phone: [facility] 06-14-2024 12:19-0500 Systolic blood pressure 151 mm[Hg] Mejgon Corinne DO Work Phone: [facility] 06-14-2024 10:41-0500 Body height 177.8 cm Mejgon Corinne DO Work Phone: [facility] 06-14-2024 10:41-0500 Body mass index (BMI) [Ratio] 28.7 kg/m2 Mejgon Corinne DO Work Phone: [facility] 06-14-2024 10:41-0500 Body temperature 98.1 [degF] Mejgon Corinne DO Work Phone: [facility] 06-14-2024 10:41-0500 Body weight 90.72 kg Mejgon Corinne DO Work Phone: [facility] 03-11-2024 13:27-0400 Body height 177.8 cm Mary Gonzalez MD Work Phone: [facility] 03-11-2024 13:27-0400 Body mass index (BMI) [Ratio] 27.98 kg/m2 Mary Gonzalez MD Work Phone: [facility] 03-11-2024 13:27-0400 Body weight 88.45 kg Mary Gonzalez MD Work Phone: [facility] 03-11-2024 13:27-0400 Heart rate 86 /min Mary Gonzalez MD Work Phone: [facility] 03-11-2024 13:27-0400 SaO2% (BldA) [Mass fraction] 95 % Mary Gonzalez MD Work Phone: [facility] 09-05-2023 14:04-0400 Body height 177.8 cm Mary Gonzalez MD Work Phone: [facility] 09-05-2023 14:04-0400 Body weight 95.25 kg Mary Gonzalez MD Work Phone: [facility] 09-05-2023 14:04-0400 Heart rate 65 /min Mary Gonzalez MD Work Phone: [facility] 09-05-2023 14:04-0400 SaO2% (BldA) [Mass fraction] 98 % Mary Gonzalez MD Work Phone: [facility] 08-21-2023 10:15-0400 Body height 177.8 cm Suzan Dinh ENVIRONMENTAL HEALTH SAFETY ENGINEER - DAMAGE ASSESSOR Work Phone: [facility] 08-21-2023 10:15-0400 Body mass index (BMI) [Ratio] 30.71 kg/m2 Suzan Dinh ENVIRONMENTAL HEALTH SAFETY ENGINEER - DAMAGE ASSESSOR Work Phone: [facility] 08-21-2023 10:15-0400 Body weight 97.07 kg Suzan Dinh ENVIRONMENTAL HEALTH SAFETY ENGINEER - DAMAGE ASSESSOR Work Phone: [facility] 08-21-2023 10:15-0400 Diastolic blood pressure 78 mm[Hg] Suzan Dinh ENVIRONMENTAL HEALTH SAFETY ENGINEER - DAMAGE ASSESSOR Work Phone: [facility] 08-21-2023 10:15-0400 Heart rate 76 /min Suzan Dinh ENVIRONMENTAL HEALTH SAFETY ENGINEER - DAMAGE ASSESSOR Work Phone: [facility] 08-21-2023 10:15-0400 Systolic blood pressure 173 mm[Hg] Suzan Dinh ENVIRONMENTAL HEALTH SAFETY ENGINEER - DAMAGE ASSESSOR Work Phone: [facility] 07-29-2023 12:59-0400 Body height 177.8 cm Mary Gonzalez MD Work Phone: [facility] 07-29-2023 12:59-0400 Body weight 95.25 kg Mary Gonzalez MD Work Phone: [facility] 07-29-2023 12:59-0400 Heart rate 71 /min Mary Gonzalez MD Work Phone: [facility] 07-29-2023 12:59-0400 SaO2% (BldA) [Mass fraction] 94 % Mary Gonzalez MD Work Phone: [facility] 07-12-2023 10:24-0500 Body height 177.8 cm Cedrick Newsome MD Work Phone: [facility] 07-12-2023 10:24-0500 Body mass index (BMI) [Ratio] 30.79 kg/m2 Cedrick Newsome MD Work Phone: [facility] 07-12-2023 10:24-0500 Body weight 97.34 kg Cedrick Newsome MD Work Phone: [facility] 07-12-2023 10:24-0500 Diastolic blood pressure 73 mm[Hg] Cedrick Newsome MD Work Phone: [facility] 07-12-2023 10:24-0500 Heart rate 84 /min Cedrick Newsome MD Work Phone: [facility] 07-12-2023 10:24-0500 Systolic blood pressure 135 mm[Hg] Cedrick Newsome MD Work Phone: [facility] 12-17-2022 12:46-0400 Body height 177.8 cm Mary Gonzalez MD Work Phone: [facility] 12-17-2022 12:46-0400 Body weight 92.99 kg Mary Gonzalez MD Work Phone: [facility] 12-17-2022 12:46-0400 Heart rate 66 /min Mary Gonzalez MD Work Phone: [facility] 12-17-2022 12:46-0400 SaO2% (BldA) [Mass fraction] 96 % Mary Gonzalez MD Work Phone: [facility] 12-15-2022 02:51-0400 Diastolic blood pressure 74 mm[Hg] Dr. Jermaine Church Work Phone: [facility] 12-15-2022 02:51-0400 Respiratory rate 16 /min Dr. Jermaine Church Work Phone: [facility] 12-15-2022 02:51-0400 Systolic blood pressure 128 mm[Hg] Dr. Jermaine Church Work Phone: [facility] 12-15-2022 01:01-0400 Body height 177.[address] Jermaine Church Work Phone: [facility] 12-15-2022 01:01-0400 Body mass index (BMI) [Ratio] 31.7 kg/m2 Dr. Jermaine Church Work Phone: [facility] 12-15-2022 01:01-0400 Body temperature 97.6 [degF] Dr. Jermaine Church Work Phone: [facility] 12-15-2022 01:01-0400 Body weight 100.[address] Jermaine Church Work Phone: [facility] 12-15-2022 01:01-0400 Heart rate 63 /min Dr. Jermaine Church Work Phone: [facility] 12-15-2022 01:01-0400 SaO2% (BldA) [Mass fraction] 97 % Dr. Jermaine Church Work Phone: [facility] 09-19-2022 13:35-0400 Body temperature 96.9 [degF] Dr. Jermaine Church Work Phone: [facility] 09-19-2022 13:35-0400 Diastolic blood pressure 53 mm[Hg] Dr. Jermaine Church Work Phone: [facility] 09-19-2022 13:35-0400 Heart rate 75 /min Dr. Jermaine Church Work Phone: [facility] 09-19-2022 13:35-0400 Respiratory rate 18 /min Dr. Jermaine Church Work Phone: [facility] 09-19-2022 13:35-0400 SaO2% (BldA) [Mass fraction] 97 % Dr. Jermaine Church Work Phone: [facility] 09-19-2022 13:35-0400 Systolic blood pressure 119 mm[Hg] Dr. Jermaine Church Work Phone: [facility] 09-18-2022 09:27-0400 Body mass index (BMI) [Ratio] 30.1 kg/m2 Dr. Jermaine Church Work Phone: [facility] 09-18-2022 09:27-0400 Body weight 95.[address] Jermaine Church Work Phone: [facility] 09-12-2022 15:45-0400 Body height 177.[address] Jermaine Church Work Phone: [facility] 09-06-2022 13:53-0400 Body temperature 99.2 [degF] Dr. Jermaine Church Work Phone: [facility] 09-06-2022 13:53-0400 Diastolic blood pressure 59 mm[Hg] Dr. Jermaine Church Work Phone: [facility] 09-06-2022 13:53-0400 Heart rate 65 /min Dr. Jermaine Church Work Phone: [facility] 09-06-2022 13:53-0400 Respiratory rate 16 /min Dr. Jermaine Church Work Phone: [facility] 09-06-2022 13:53-0400 SaO2% (BldA) [Mass fraction] 97 % Dr. Jermaine Church Work Phone: [facility] 09-06-2022 13:53-0400 Systolic blood pressure 125 mm[Hg] Dr. Jermaine Church Work Phone: [facility] 09-04-2022 15:51-0400 Body height [address] Jermaine Church Work Phone: [facility] 09-04-2022 15:51-0400 Body mass index (BMI) [Ratio] 29.6 kg/m2 Dr. Jermaine Church Work Phone: [facility] 09-04-2022 15:51-0400 Body weight 93.[address] Jermaine Church Work Phone: [facility] 09-04-2022 14:15-0400 Inhaled oxygen flow rate 4 L/min Dr. Jermaine Church Work Phone: [facility] 07-17-2022 15:44-0500 Body mass index (BMI) [Ratio] 33.72 kg/m2 Nickolas Ortiz DO Work Phone: [facility] [address] 07-17-2022 15:44-0500 Body temperature 97.5 [degF] Nickolas Ortiz DO Work Phone: [facility] 07-17-2022 15:44-0500 Body weight 106.59 kg Nickolas Ortiz DO Work Phone: [facility] 07-17-2022 15:44-0500 Diastolic blood pressure 64 mm[Hg] Nickolas Ortiz DO Work Phone: [facility] 07-17-2022 15:44-0500 Heart rate 83 /min Nickolas Ortiz DO Work Phone: [facility] 07-17-2022 15:44-0500 SaO2% (BldA) [Mass fraction] 99 % Nickolas Ortiz DO Work Phone: [facility] 07-17-2022 15:44-0500 Systolic blood pressure 147 mm[Hg] Nickolas Ortiz DO Work Phone: [facility] 07-13-2022 08:43-0500 Body mass index (BMI) [Ratio] 29.8 kg/m2 Dr. Jermaine Church Work Phone: [facility] 07-13-2022 08:43-0500 Body weight 94.[address] Jermaine Church Work Phone: [facility] 07-11-2022 13:45-0500 Body mass index (BMI) [Ratio] 29.5 kg/m2 Dr. Jermaine Church Work Phone: [facility] 07-11-2022 13:45-0500 Body weight 93.[address] Jermaine Church Work Phone: [facility] 06-18-2022 14:43-0500 Body height 177.8 cm Mary Gonzalez MD Work Phone: [facility] 06-18-2022 14:43-0500 Body weight 92.99 kg Mary Gonzalez MD Work Phone: [facility] 12-12-2021 13:05-0400 Body height 177.8 cm [facility] Work Phone: [facility] 12-12-2021 13:05-0400 Body weight 92.99 kg [facility] Work Phone: [facility] 12-12-2021 13:05-0400 Diastolic blood pressure 62 mm[Hg] [facility] Work Phone: [facility] 12-12-2021 13:05-0400 Systolic blood pressure 136 mm[Hg] [facility] Work Phone: [facility] 10-02-2021 14:02-0400 Diastolic blood pressure 59 mm[Hg] Kwabena Montes De Oca MD Work Phone: [facility] 10-02-2021 14:02-0400 Heart rate 61 /min Kwabena Montes De Oca MD Work Phone: [facility] 10-02-2021 14:02-0400 Respiratory rate 14 /min Kwabena Montes De Oca MD Work Phone: [facility] 10-02-2021 14:02-0400 SaO2% (BldA) [Mass fraction] 95 % Kwabena Montes De Oca MD Work Phone: [facility] 10-02-2021 14:02-0400 Systolic blood pressure 150 mm[Hg] Kwabena Montes De Oca MD Work Phone: [facility] 10-02-2021 11:59-0400 Body height 177.8 cm Kwabena Montes De Oca MD Work Phone: [facility] 10-02-2021 11:59-0400 Body mass index (BMI) [Ratio] 30.13 kg/m2 Kwabena Montes De Oca MD Work Phone: [facility] 10-02-2021 11:59-0400 Body temperature 98.2 [degF] Kwabena Montes De Oca MD Work Phone: [facility] 10-02-2021 11:59-0400 Body weight 95.25 kg Kwabena Montes De Oca MD Work Phone: [facility] 09-25-2021 10:41-0400 Diastolic blood pressure 52 mm[Hg] Zaida Montejo MD Work Phone: [facility] 09-25-2021 10:41-0400 Heart rate 61 /min Zaida Montejo MD Work Phone: [facility] 09-25-2021 10:41-0400 Respiratory rate 18 /min Zaida Montejo MD Work Phone: [facility] 09-25-2021 10:41-0400 SaO2% (BldA) [Mass fraction] 93 % Zaida Montejo MD Work Phone: [facility] 09-25-2021 10:41-0400 Systolic blood pressure 115 mm[Hg] Zaida Montejo MD Work Phone: [facility] 09-25-2021 03:51-0400 Body height 177.8 cm Zaida Montejo MD Work Phone: [facility] 09-25-2021 03:51-0400 Body mass index (BMI) [Ratio] 30.13 kg/m2 Zaida Montejo MD Work Phone: [facility] 09-25-2021 03:51-0400 Body temperature 98.4 [degF] Zaida Montejo MD Work Phone: [facility] 09-25-2021 03:51-0400 Body weight 95.25 kg Zaida Montejo MD Work Phone: [facility] 08-14-2021 14:27-0400 Body height 177.8 cm Mray Gonzalez MD Work Phone: [facility] 08-14-2021 14:27-0400 Body weight 92.99 kg Mary Gonzalez MD Work Phone: [facility] NEGATED: Highlighted [id number] 13:52-0400 BMI (Body Mass Index) 29.38 kg/m2 Ginger Arteaga AT [facility] Work Phone: NEGATED: Highlighted [id number] 13:52-0400 Body weight 92.53 kg Ginger Arteaga AT [facility] Work Phone: NEGATED: Highlighted [id number] 13:52-0400 Body weight 93 kg Ginger Arteaga AT [facility] Work Phone: NEGATED: Highlighted [id number] 13:52-0400 Heart rate 2+ Ginger Arteaga AT [facility] Work Phone: NEGATED: Highlighted [id number] 13:52-0400 Height 177.8 cm Ginger Arteaga AT [facility] Work Phone: NEGATED: Highlighted [id number] 13:52-0400 Height 178 cm Ginger Arteaga AT [facility] Work Phone: Encounters Encounter Date Encounter Type Care Provider Facility Start: 11-15-2024 ambulatory Jermaine Church Facilit y:[facility] Start: 09-23-2024 End: 09-23-2024 Patient encounter procedure Mary Gonzalez MD Work Phone: Urology Comment on above: Nocturia (Primary Dx ); History of prostate cancer; Rising PSA following treatment for malignant neoplasm of prostate Start: 09-23-2024 End: 09-23-2024 ambulatory MARY GONZALEZ Facility:[facility] Start: 09-05-2024 End: 09-05-2024 Emergency department patient visit Dr. Jermaine Church DO Work Phone: -Emergency Department Work Phone: Start: 09-03-2024 End: 09-03-2024 Emergency department patient visit Dr. Jermaine Church DO Work Phone: -Emergency Department Work Phone: Start: 08-18-2024 End: 08-18-2024 Office outpatient visit 25 minutes Rafael Moncada APRN.DAMAGE ASSESSOR, DNP Work Phone: Urology Comment on above: Nocturia (Primary Dx ); History of prostate cancer Start: 08-18-2024 End: 08-18-2024 ambulatory RAFAEL MONCADA Facility:[facility] Start: 08-05-2024 End: 08-08-2024 Evaluation and management of inpatient Jimmy Kulkarni DDS Work Phone: [facility] 9 Comment on above: Fracture of unspecif ied part of body of left mandible, initial encounter for closed fracture (Multi) (Primary Dx) Start: 08-03-2024 End: 08-03-2024 ambulatory [facility] Start: 08-03-2024 End: 08-03-2024 Encounter for preprocedural cardiovascular examination [facility] Start: 08-03-2024 End: 08-03-2024 Subsequent hospital visit by physician Zeynep [id number] [facility] Comment on above: Closed fracture of r ight side of mandibular body, initial encounter (Multi) Start: 08-03-2024 End: 08-03-2024 ambulatory [facility] Start: 08-02-2024 ambulatory [facility] Start: 06-14-2024 End: 06-14-2024 Subsequent hospital visit by physician [facility] [address] Exam Room [address] [facility] [address] Comment on above: Arrived Start: 06-14-2024 End: 06-14-2024 Emergency department patient visit ginette Sun Work Phone: [facility] ED Comment on above: Fall, initial encoun ter (Primary Dx); Closed fracture of maxillary sinus, initial encounter (HCC) Start: 03-11-2024 End: 03-11-2024 Patient encounter procedure Mary Gonzalez MD Work Phone: Urology Comment on above: Prostate cancer (HCC ) (Primary Dx); Rising PSA following treatment for malignant neoplasm of prostate; Nocturia Start: 03-11-2024 End: 03-11-2024 ambulatory MARY GONZALEZ Facility:[facility] Start: 09-06-2023 Orders Only Mary Gonzalez MD Work Phone: Urology Start: 09-05-2023 End: 09-05-2023 Nursing evaluation of patient and report Nurse [facility] Work Phone: Urology Comment on above: Prostate cancer (HCC ) (Primary Dx) Start: 09-05-2023 End: 09-05-2023 Patient encounter procedure Mary Gonzalez MD Work Phone: Urology Comment on above: Prostate cancer (HCC ) (Primary Dx); Rising PSA following treatment for malignant neoplasm of prostate; Nocturia Start: 09-05-2023 Telephone encounter Mary grant MD Work Phone: Urology Comment on above: Patient Question Start: 08-22-2023 End: 08-22-2023 Subsequent hospital visit by physician [facility] [place] Work Phone: [facility] [place] Comment on above: Prostate cancer (HCC ) [C61] Start: 08-21-2023 End: 08-21-2023 Office outpatient visit 25 minutes Suzan Dinh ENVIRONMENTAL HEALTH SAFETY ENGINEER - DAMAGE ASSESSOR Work Phone: [facility] Comment on above: Cervico-occipital ne uralgia (Primary Dx); Vertigo; New daily persistent headache Start: 08-21-2023 End: 08-21-2023 ambulatory SUZAN DINH [facility] Start: 08-13-2023 End: 08-13-2023 Subsequent hospital visit by physician Cedrick Newsome MD Work Phone: [facility] Comment on above: Vertebral artery ins ufficiency Start: 08-13-2023 End: 08-13-2023 ambulatory [facility] Start: 08-03-2023 Refill Cedrick Newsome MD Work Phone: [facility] Start: 07-29-2023 End: 07-29-2023 Patient encounter procedure Mary Gonzalez MD Work Phone: Urology Comment on above: Prostate cancer (HCC ) (Primary Dx); Rising PSA following treatment for malignant neoplasm of prostate; Nocturia Start: 07-12-2023 End: 07-12-2023 Subsequent hospital visit by physician Cedrick Newsome MD Work Phone: [facility] Comment on above: Cervico-occipital ne uralgia Start: 07-12-2023 End: 07-12-2023 ambulatory CEDRICK [facility] Start: 07-12-2023 End: 07-12-2023 Office outpatient new 45 minutes Cedrick Newsome MD Work Phone: [facility] Comment on above: Vertebral artery ins ufficiency (Primary Dx); Cervico-occipital neuralgia; New daily persistent headache Start: 07-12-2023 End: 07-12-2023 ambulatory [facility] Start: 12-17-2022 End: 12-17-2022 Patient encounter procedure Mary Gonzalez MD Work Phone: Urology Comment on above: Prostate cancer (HCC ) (Primary Dx); Rising PSA following treatment for malignant neoplasm of prostate; Nocturia Start: 12-15-2022 End: 12-15-2022 Emergency department patient visit Dr. Jermaine Church Work Phone: [facility]-Emergency Department Work Phone: Start: 10-17-2022 End: 10-17-[address] Jermaine Church Work Phone: [facility] Work Phone: Start: 09-17-2022 End: 09-17-[address] Jermaine Church Work Phone: [facility] Start: 09-06-2022 Non-patient / Non-visit Dr. Mini Church Work Phone: [facility] Start: 09-06-2022 End: 09-19-2022 Evaluation and management of inpatient Dr. Jermaine Chruch Work Phone: [facility]-Transitional Care Unit Start: 09-06-2022 Non-patient / Non-visit Dr. Mini Church Work Phone: [facility] Start: 09-05-2022 Non-patient / Non-visit Dr. Mini Church Work Phone: [facility] Start: 09-05-2022 Non-patient / Non-visit Dr. Mini Church Work Phone: [facility] Start: 09-04-2022 Non-patient / Non-visit Dr. Mini Church Work Phone: [facility] Start: 09-04-2022 Non-patient / Non-visit Dr. Mini Church Work Phone: [facility] Start: 09-04-2022 End: 09-06-2022 Evaluation and management of inpatient Dr. Jermaine Church Work Phone: [facility]-Medical Surgical 3 Start: 08-21-2022 End: 08-21-[address] Jermaine Church Work Phone: [facility]-Cat Scan, [facility] Start: 07-27-2022 End: 07-27-2022 Patient encounter procedure Radha Middleton MD Work Phone: [facility] Comment on above: Visit for suture rem oval (Primary Dx) Start: 07-17-2022 End: 07-17-2022 Office outpatient visit 25 minutes Nickolas Ortiz DO Work Phone: [facility] Comment on above: Laceration of right thumb without foreign body without damage to nail, initial encounter (Primary Dx); Laceration of right index finger without foreign body without damage to nail, initial encounter Start: 07-13-2022 End: 07-13-[address] Jermaine Church Work Phone: [facility] Start: 07-11-2022 End: 07-11-[address] Jermaine Church Work Phone: [facility] Start: 06-18-2022 End: 06-18-2022 Patient encounter procedure Mary Gonzalez MD Work Phone: Urology Comment on above: Prostate cancer (HCC ) (Primary Dx); Rising PSA following treatment for malignant neoplasm of prostate; Nocturia Start: 06-06-2022 End: 06-06-2022 ambulatory [facility] Work Phone: Start: 06-06-2022 End: 06-06-2022 Patient encounter procedure [facility] Start: 04-19-2022 End: 04-19-2022 ambulatory [facility] Work Phone: Start: 04-19-2022 End: 04-19-2022 Patient encounter procedure [facility] Start: 02-15-2022 Refill Mary Gonzalez MD Work Phone: [place] [facility] Comment on above: Refill Request Start: 02-12-2022 End: 02-12-2022 ambulatory [facility] Work Phone: Start: 02-12-2022 End: 02-12-2022 Patient encounter procedure [facility] Start: 02-01-2022 Refill Mary Gonzalez MD Work Phone: Urology Comment on above: Refill Request; Refi ll Request Start: 01-29-2022 Telephone encounter Mary grant MD Work Phone: [place] [facility] Comment on above: Medication Problem Start: 01-23-2022 Telephone encounter Mary grant MD Work Phone: [facility] Comment on above: Patient Question Start: 12-12-2021 End: 12-12-2021 Nursing evaluation of patient and report Nurse [employer] Work Phone: Urology Comment on above: Prostate cancer (HCC ) (Primary Dx) Start: 11-06-2021 Refill Mary Gonzalez MD Work Phone: Urology Comment on above: Refill Request Start: 10-04-2021 Telephone encounter Mary grant MD Work Phone: [facility] Comment on above: Medication Problem; Medication Question Start: 10-02-2021 End: 10-02-2021 Emergency department patient visit Kwabena Montes De Oca MD Work Phone: [facility] [place] Comment on above: DVT of axillary vein , acute right (HCC) (Primary Dx) Start: 09-25-2021 End: 09-25-2021 Emergency department patient visit Zaida Montejo MD Work Phone: [facility] Comment on above: Right upper quadrant abdominal pain (Primary Dx); Constipation, unspecified constipation type Start: 09-21-2021 Telephone encounter Mary grant MD Work Phone: Urology Comment on above: Appointment Start: 08-24-2021 Telephone encounter Mary grant MD Work Phone: Urology Comment on above: Medication Problem Start: 08-14-2021 End: 08-14-2021 Patient encounter procedure Mary Gonzalez MD Work Phone: Urology Comment on above: Prostate cancer (HCC ) (Primary Dx); Rising PSA following treatment for malignant neoplasm of prostate; Nocturia Start: 08-10-2021 Refill Mary Gonzalez MD Work Phone: Urology Comment on above: Refill Request Start: 07-12-2020 End: 07-12-2020 Patient encounter procedure Mary Gonzalez Work Phone: [facility] Start: 07-12-2020 Results Only Mary Gonzalez Work Phone: Urology Start: 06-29-2020 End: 06-29-2020 Subsequent hospital visit by physician Jermaine Church Work Phone: [employer] [facility] Start: 02-22-2020 End: 02-22-2020 Patient encounter procedure Mary Suzanna Lisa Work Phone: [facility] Start: 02-22-2020 Results Only Mary Gonzalez Work Phone: Urology Start: 12-03-2019 End: 12-04-2019 Patient encounter procedure Nelly Shah ENVIRONMENTAL HEALTH SAFETY ENGINEER-DAMAGE ASSESSOR Work Phone: [facility] Work Phone: Start: 12-03-2019 End: 12-03-2019 Pt evaluation Nelly Shah ENVIRONMENTAL HEALTH SAFETY ENGINEER-DAMAGE ASSESSOR Work Phone: [facility] Work Phone: Start: 11-02-2019 End: 11-02-2019 Subsequent hospital visit by physician Jermaine Church Work Phone: [facility] Start: 12-02-2007 End: 12-02-2007 Patient encounter procedure Mary Gonzalez Work Phone: [facility] Start: 12-02-2007 Results Only Mary Gonzalez Work Phone: [facility] Start: 06-22-2002 End: 06-22-2002 Patient encounter procedure Galen Hager Work Phone: [facility] Start: 06-22-2002 Results Only Galen fields Work Phone: [facility] Procedures Date Procedure Procedure Detail Performing Clinician Start: 09-05-2024 CT cervical spine wi thout contrast Dr. Jermaine Church DO Work Phone: Start: 09-05-[address] Jermaine Church DO Work Phone: Start: 09-05-2024 CT of head without contrast Dr. Jermaine Church DO Work Phone: Start: 09-03-2024 Computed tomography of abdomen and pelvis with intravenous contrast Dr. Jermaine Church DO Work Phone: Start: 08-18-2024 Urnls dip stick/tabl et rgnt auto w/o microscopy Rafael Moncada ENVIRONMENTAL HEALTH SAFETY ENGINEER.DAMAGE ASSESSOR, DNP Work Phone: Start: 08-07-2024 Culture bacterial bl ood aerobic w/id isolates Lizz Chaidez DDS Work Phone: Start: 08-06-2024 Basic metabolic pane l calcium total Mauri Martinez DMD Work Phone: Start: 08-05-2024 Orthopantogram Mauri harshad DMD Work Phone: Start: 08-05-2024 PULSE OXIMETRY, CONTINUOUS Darnell Dueñas DO Work Phone: Start: 08-05-2024 Culture fngi mold/ye ast prsmptv oth xcpt blood Jimmy Kulkarni DDS Work Phone: Start: 08-05-2024 End: 08-05-2024 Excision bone mandible Jimmy Kulkarni DDS Work Phone: Start: 08-05-2024 End: 08-05-2024 Open tx mandibular fx w/interdental fixation Jimmy Kulkarni DDS Work Phone: Start: 08-05-2024 End: 08-05-2024 Rcnstj mndbl xtroral w/transosteal bone plate Jimmy Kulkarni DDS Work Phone: Start: 06-14-2024 Ct cervical spine w/ o contrast material Mejgon Z Corinne DO Work Phone: Start: 06-14-2024 End: 06-14-2024 Ct head/brain w/o contrast material Mejgon Z Corinne DO Work Phone: Start: 10-17-2022 Plain x-ray of pelvi s and lower extremity Dr. Jermaine Church Work Phone: Start: 09-10-[address] Jermaine Church Work Phone: Start: 09-06-[address] Jermaine Church Work Phone: Start: 09-04-2022 Plain X-ray of hip Dr. Jermaine Church Work Phone: Start: 09-04-2022 Total Hip Replacemen t Robotic Arm Assist (Left) Dr. Jermaine Church Work Phone: Start: 08-21-2022 MRI of lower extremity Dr. Jermaine Church Work Phone: Start: 06-06-2022 MRI of lumbar spine Start: 04-19-2022 Plain x-ray of pelvi s and lower extremity Start: 02-12-2022 X-ray of lumbar spin e, two or three views Start: 10-02-2021 Basic metabolic pane l calcium total Kwabena Montes De Oca MD Work Phone: Start: 10-02-2021 Dup-scan xtr veins unilateral/limited study Kwabena Montes De Oca MD Work Phone: Start: 09-25-2021 Urnls dip stick/tabl et rgnt auto w/o microscopy Zaida Montejo MD Work Phone: Start: 09-25-2021 Computed tomography of abdomen and pelvis with contrast Zaida Montejo MD Work Phone: Start: 09-25-2021 Ecg routine ecg w/le ast 12 lds w/i&r Zaida Montejo MD Work Phone: Start: 09-25-2021 Radex ribs uni w/posteroant ch minimum 3 views Zaida Montejo MD Work Phone: Start: 09-25-2021 Basic metabolic pane l calcium total Zaida Montejo MD Work Phone: Start: 09-25-2021 Hepatic function panel Zaida Montejo MD Work Phone: Start: 07-13-2020 [object Object] Mary Br eaux Start: 07-12-2020 PSA SCREEN Mary F Flores aux Work Phone: Start: 07-12-2020 Testosterone [Mass/Vol] Mary F Lisa Work Phone: Start: 06-29-2020 Radex spine cervical 6 or more views Jermaine Ranjit Work Phone: Start: 02-23-2020 [object Object] Mary Br eaux Start: 02-22-2020 PSA SCREEN Mary F Flores aux Work Phone: Start: 02-22-2020 Testosterone [Mass/Vol] Mary F Lisa Work Phone: Start: 12-03-2019 End: 12-04-2019 Blood pressure screening not performed - reason not given Nelly Shah ENVIRONMENTAL HEALTH SAFETY ENGINEER-DAMAGE ASSESSOR Work Phone: Start: 12-03-2019 End: 12-04-2019 BMI documented as above normal parameters - follow-up documented Nelly Shah ENVIRONMENTAL HEALTH SAFETY ENGINEER-DAMAGE ASSESSOR Work Phone: Start: 12-03-2019 End: 12-04-2019 Documentation of current medications Nelly Shah ENVIRONMENTAL HEALTH SAFETY ENGINEER-DAMAGE ASSESSOR Work Phone: Start: 12-03-2019 End: 12-04-2019 Pain assessment documented as positive - follow-up documented Nelly Shah ENVIRONMENTAL HEALTH SAFETY ENGINEER-DAMAGE ASSESSOR Work Phone: Start: 12-03-2019 End: 12-04-2019 Tobacco non-user Nelly Shah ENVIRONMENTAL HEALTH SAFETY ENGINEER-DAMAGE ASSESSOR Work Phone: Start: 11-02-2019 Radex spine lumbscrl compl w/bending views min 6 Jermaine Ranjit Work Phone: Start: 12-02-2007 CONVERTED SURGICAL PATHOLOGY Mary Gonzalez Work Phone: Start: 06-22-2002 CONVERTED SURGICAL PATHOLOGY Galen Hager Work Phone: NEGATED: Highlighted rowStart: 12-03-2019 End: 12-03-2019 Documentation of current medications Ginger Arteaga AT Plan of Treatment Date Care Activity Detail Author Start: 07-18-2032 DTaP/Tdap/Td Vaccine s (2 - Td or Tdap) DTaP/Tdap/Td Vaccines (2 - Td or Tdap) [facility] [id number] Start: 07-18-2032 Urine microalbumin profile DTaP,Tdap,Td Vaccine (2 - Td or Tdap) [facility] Start: 08-07-2027 Diabetes Screening Diabetes Screenin g [facility] Start: 04-05-2025 End: 04-05-2025 Patient encounter procedure 04/05/2025 1:00 PM EST Office Visit Urology [address] [place], [place] [id number] Mary Gonzalez MD [address] [place] [address] 6 month follow up psa & test prior Urology Comment on above: 6 month follow up ps a & test prior Start: 03-22-2025 End: 06-21-2025 Prostate specific Ag [Mass/volume] in Serum or Plasma PROSTATE-SPECIFIC ANTIGEN DIAGNOSTIC Lab Routine Nocturia History of prostate cancer Rising PSA following treatment for malignant neoplasm of prostate Expected: 03/22/2025 (Approximate), Expires: 06/21/2025 [facility] Work Phone: Comment on above: Expected: 03/22/2025 (Approximate), Expires: 06/21/2025 Start: 03-22-2025 End: 06-21-2025 Testosterone [Mass/volume] in Serum or Plasma TESTOSTERONE, TOTAL BY IMMUNOASSAY (ADULT MALES, OR INDIVIDUALS ON TESTOSTERONE THERAPY) Lab Routine Nocturia History of prostate cancer Rising PSA following treatment for malignant neoplasm of prostate Expected: 03/22/2025 (Approximate), Expires: 06/21/2025 [facility] Comment on above: Expected: 03/22/2025 (Approximate), Expires: 06/21/2025 Start: 10-02-2024 Diabetes Screening Diabetes Screenin g [facility] Start: 09-23-2024 End: 09-23-2024 Patient encounter procedure 09/23/2024 1:45 PM EDT Office Visit Urology [address] [place] [address] Mary Gonzalez MD [address] [place], [place] [phone] 6 month follow up blood work prior Urology Comment on above: 6 month follow up bl ood work prior Start: 09-07-2024 End: 12-07-2024 Prostate specific Ag [Mass/volume] in Serum or Plasma PROSTATE-SPECIFIC ANTIGEN DIAGNOSTIC Lab Routine Prostate cancer (HCC) Rising PSA following treatment for malignant neoplasm of prostate Expected: 09/07/2024 (Approximate), Expires: 12/07/2024 [facility] Work Phone: Comment on above: Expected: 09/07/2024 (Approximate), Expires: 12/07/2024 Start: 09-07-2024 End: 12-07-2024 Testosterone [Mass/volume] in Serum or Plasma TESTOSTERONE, TOTAL Lab Routine Prostate cancer (HCC) Rising PSA following treatment for malignant neoplasm of prostate Expected: 09/07/2024 (Approximate), Expires: 12/07/2024 [facility] Comment on above: Expected: 09/07/2024 (Approximate), Expires: 12/07/2024 Start: 09-05-2024 [facility] Start: 08-05-2024 End: 08-05-2024 Admission to same day surgery center 08/05/2024 9:40 AM EDT - 08/05/2024 12:40 PM EDT Surgery [facility] [place] [place] [address] [place] [address] Jimmy Kulkarni, DDS [address] [place] [address] ORIF, FRACTURE, MANDIBLE [10296 (CPT )] [facility] [place] Comment on above: ORIF, FRACTURE, MELANIE IBLE [22464 (CPT )] Start: 08-05-2024 End: 08-05-2024 Open tx mandibular fx w/interdental fixation ORIF, FRACTURE, MANDIBLE Fracture of unspecified part of body of left mandible, initial encounter for closed fracture (Multi) 08/05/2024 9:40 AM EDT [facility] [place] Start: 08-05-2024 Subsequent hospital visit by physician 08/05/2024 8:10 AM EDT Hospital Encounter [facility] [place] [place] [address] [place] [address] Jimmy Kulkarni, DDS [address] [place] [address] [facility] [place] Start: 07-26-2024 Covid-19 Vaccine ( season) Covid-19 Vaccine ( season) [facility] Start: 05-20-2024 Advance Directive Discussion Advance Directive Discussion [facility] Start: 03-03-2024 End: 06-02-2024 Prostate specific Ag [Mass/volume] in Serum or Plasma PROSTATE-SPECIFIC ANTIGEN DIAGNOSTIC Lab Routine Prostate cancer (HCC) Rising PSA following treatment for malignant neoplasm of prostate Nocturia Expected: 03/03/2024 (Approximate), Expires: 06/02/2024 [facility] Work Phone: Comment on above: Expected: 03/03/2024 (Approximate), Expires: 06/02/2024 Start: 03-03-2024 End: 06-02-2024 Testosterone [Mass/volume] in Serum or Plasma TESTOSTERONE, TOTAL Lab Routine Prostate cancer (HCC) Rising PSA following treatment for malignant neoplasm of prostate Nocturia Expected: 03/03/2024 (Approximate), Expires: 06/02/2024 [facility] Work Phone: Comment on above: Expected: 03/03/2024 (Approximate), Expires: 06/02/2024 Start: 01-19-2024 COVID-19 Vaccine () COVID-19 Vaccine () [facility] Start: 01-19-2024 Influenza vaccination S [facility] Start: 11-25-2023 End: 11-25-2023 Patient encounter procedure 11/25/2023 10:30 AM EDT Office Visit [facility] [employer] [facility] [address] [place] [address] [place] [phone] Suzan Dinh, ENVIRONMENTAL HEALTH SAFETY ENGINEER - DAMAGE ASSESSOR [address] [facility] [address] [place] [phone] [facility] [employer] [facility] Start: 09-05-2023 End: 12-05-2023 Prostate specific Ag [Mass/volume] in Serum or Plasma PROSTATE-SPECIFIC ANTIGEN DIAGNOSTIC Lab Routine Prostate cancer (HCC) Rising PSA following treatment for malignant neoplasm of prostate Nocturia Expected: 09/05/2023, Expires: 12/05/2023 [facility] Work Phone: Comment on above: Expected: 09/05/2023 , Expires: 12/05/2023 Start: 09-05-2023 End: 12-05-2023 Testosterone [Mass/volume] in Serum or Plasma TESTOSTERONE, TOTAL Lab Routine Prostate cancer (HCC) Rising PSA following treatment for malignant neoplasm of prostate Nocturia Expected: 09/05/2023, Expires: 12/05/2023 [facility] Work Phone: Comment on above: Expected: 09/05/2023 , Expires: 12/05/2023 Start: 08-21-2023 End: 08-21-2023 Patient encounter procedure 08/21/2023 10:30 AM EDT Office Visit [facility] [employer] [facility] [address] [place] [phone] Suzan Dinh APRN - DAMAGE ASSESSOR [address] [facility] [address] [place] [phone] [facility] Start: 08-13-2023 Subsequent hospital visit by physician 08/13/2023 2:45 PM EDT Hospital Encounter [facility] [address] [place] [address] Cedrick Newsome MD [address] [facility] [address] [place] [address] [facility] [address] Start: 08-09-2023 End: 08-09-2023 Patient encounter procedure 08/09/2023 9:30 AM EDT Office Visit [facility] [address] [facility] [address] [place] [phone] Suzan Dinh, ENVIRONMENTAL HEALTH SAFETY ENGINEER - DAMAGE ASSESSOR [address] [facility] [address] [place] [phone] [facility] Start: 07-29-2023 End: 08-28-2024 PET+CT Guidance for localization of tumor of Whole body-- W [id number] IV NM PET/CT PROSTATE WHOLE BODY IMAGING Radiology Routine Prostate cancer (HCC) Rising PSA following treatment for malignant neoplasm of prostate Nocturia Expected: 07/29/2023, Expires: 08/28/2024 [facility] Work Phone: Comment on above: Expected: 07/29/2023 , Expires: 08/28/2024 Start: 07-28-2023 End: 09-27-2023 Prostate specific Ag [Mass/volume] in Serum or Plasma PSA/PROSTSPECAG DIAG Lab Routine Prostate cancer (HCC) Rising PSA following treatment for malignant neoplasm of prostate Nocturia Expected: 07/28/2023 (Approximate), Expires: 09/27/2023 [facility] Work Phone: Comment on above: Expected: 07/28/2023 (Approximate), Expires: 09/27/2023 Start: 07-28-2023 End: 09-27-2023 Testosterone [Mass/volume] in Serum or Plasma TESTOSTERONE TOTAL Lab Routine Prostate cancer (HCC) Rising PSA following treatment for malignant neoplasm of prostate Nocturia Expected: 07/28/2023 (Approximate), Expires: 09/27/2023 [facility] Work Phone: Comment on above: Expected: 07/28/2023 (Approximate), Expires: 09/27/2023 Start: 07-12-2023 End: 07-12-2024 Creatinine [Mass/volume] in Serum or Plasma Creatinine, Serum Lab Routine Cervico-occipital neuralgia Expected: 07/12/2023 (Approximate), Expires: 07/12/2024 [facility] Comment on above: Expected: 07/12/2023 (Approximate), Expires: 07/12/2024 Start: 07-12-2023 End: 07-12-2024 CTA Head vessels and Neck vessels WO and W contrast IV CTA head neck angio w and wo IV contrast Imaging Routine Vertebral artery insufficiency Expected: 07/12/2023, Expires: 07/12/2024 [facility] Work Phone: Comment on above: Expected: 07/12/2023 , Expires: 07/12/2024 Start: 07-12-2023 End: 07-12-2024 XR Cervical spine 4 or 5 Views [facility] [address]ok Comment on above: Expected: 07/12/2023 , Expires: 07/12/2024 Once for 1 Occurrenc es starting 07/12/2023 until 07/12/2023 Start: 05-20-2023 Advance Directive Discussion Advance Directive Discussion [facility] Start: 05-20-2023 Behavioral Health Screening Behavioral Health Screening [facility] Start: 05-20-2023 Depression Assessment Depression Ass essment [facility] Start: 04-16-2023 End: 06-16-2023 Prostate specific Ag [Mass/volume] in Serum or Plasma PSA/PROSTSPECAG DIAG Lab Routine Prostate cancer (HCC) Rising PSA following treatment for malignant neoplasm of prostate Nocturia Expected: 04/16/2023 (Approximate), Expires: 06/16/2023 [facility] Work Phone: Comment on above: Expected: 04/16/2023 (Approximate), Expires: 06/16/2023 Start: 04-16-2023 End: 06-16-2023 Testosterone [Mass/volume] in Serum or Plasma TESTOSTERONE TOTAL Lab Routine Prostate cancer (HCC) Rising PSA following treatment for malignant neoplasm of prostate Nocturia Expected: 04/16/2023 (Approximate), Expires: 06/16/2023 [facility] Work Phone: Comment on above: Expected: 04/16/2023 (Approximate), Expires: 06/16/2023 Start: 01-18-2023 COVID-19 Vaccine () COVID-19 Vaccine () [facility] Start: 01-18-2023 Influenza vaccination [facility] Start: 12-15-2022 End: 02-14-2023 Prostate specific Ag [Mass/volume] in Serum or Plasma PSA/PROSTSPECAG DIAG Lab Routine Prostate cancer (HCC) Rising PSA following treatment for malignant neoplasm of prostate Nocturia Expected: 12/15/2022 (Approximate), Expires: 02/14/2023 [facility] Work Phone: Comment on above: Expected: 12/15/2022 (Approximate), Expires: 02/14/2023 Start: 12-15-2022 End: 02-14-2023 Testosterone [Mass/volume] in Serum or Plasma TESTOSTERONE TOTAL Lab Routine Prostate cancer (HCC) Rising PSA following treatment for malignant neoplasm of prostate Nocturia Expected: 12/15/2022 (Approximate), Expires: 02/14/2023 [facility] Work Phone: Comment on above: Expected: 12/15/2022 (Approximate), Expires: 02/14/2023 Start: 10-12-2022 Blood chemistry [facility] Start: 10-05-2022 Blood chemistry [facility] Start: 09-28-2022 Blood chemistry [facility] Start: 09-19-2022 Patient discharge [facility] Start: 09-18-2022 Development of care plan [facility] Start: 09-13-2022 [facility] Start: 09-12-2022 [facility] Start: 09-07-2022 Development of care plan [facility] Start: 09-07-2022 Developing a treatme nt plan [facility] Start: 09-07-2022 Application of device [facility] Start: 09-06-[address] anned interventions [facility] Start: 09-06-2022 Recommendation to continue with treatment [facility] Start: 09-06-2022 Wound care [facility] Start: 09-06-2022 Admission procedure [facility] Start: 09-06-2022 Measuring intake and output [facility] Start: 09-06-2022 Patient referral to dietitian [facility] Start: 09-06-2022 Referral to occupati onal therapist [facility] Start: 09-06-2022 Referral to service [facility] Start: 09-06-2022 Vital signs measurements [facility] Start: 09-06-2022 [facility] Start: 09-06-2022 Patient discharge [facility] Start: 09-06-2022 Referral to occupati onal therapist [facility] Start: 09-06-2022 Referral to service [facility] Start: 09-04-2022 Following clinical pathway protocol [facility] Start: 09-04-2022 Oxygen therapy [facility] Start: 09-04-2022 Admission procedure [facility] Start: 09-04-2022 Consultation [facility] Start: 09-04-2022 Recommendation to continue with treatment [facility] Start: 09-04-2022 Provision of overbed trapeze [facility] Start: 09-04-2022 Ambulation therapy management [facility] Start: 09-04-2022 Application of device [facility] Start: 09-04-2022 Assessment of risk o f venous thromboembolism [facility] Start: 09-04-2022 Catheterization of vein [facility] Start: 09-04-2022 Exercises [facility] Start: 09-04-2022 Following clinical pathway protocol [facility] Start: 09-04-2022 Incentive spirometry [facility] Start: 09-04-2022 Introduction of urin yesika catheter [facility] Start: 09-04-2022 Measuring intake and output [facility] Start: 09-04-2022 Neurovascular assessment [facility] Start: 09-04-2022 Patient education [facility] Start: 09-04-2022 Procedure discontinued [facility] Start: 09-04-2022 Provision of activit y privileges [facility] Start: 09-04-2022 Referral to occupati onal therapist [facility] Start: 09-04-2022 End: 09-04-2022 Referral to service [facility] Start: 09-04-2022 Vital signs measurements [facility] Start: 09-04-2022 Wound care [facility] Start: 09-04-2022 End: 09-04-2022 [facility] Start: 07-17-2022 End: 07-17-2023 Laceration repair of hands, feet, genit Laceration repair of hands, feet, genit Procedures Routine Laceration of right thumb without foreign body without damage to nail, initial encounter Laceration of right index finger without foreign body without damage to nail, initial encounter Expected: 07/17/2022 (Approximate), Expires: 07/17/2023 [facility] Work Phone: Comment on above: Expected: 07/17/2022 (Approximate), Expires: 07/17/2023 Start: 06-18-2022 End: 08-18-2022 Prostate specific Ag [Mass/volume] in Serum or Plasma [facility] Work Phone: Comment on above: Expected: 06/18/2022 , Expires: 08/18/2022 Start: 06-18-2022 End: 08-18-2022 Testosterone [Mass/volume] in Serum or Plasma [facility] Work Phone: Comment on above: Expected: 06/18/2022 , Expires: 08/18/2022 Start: 06-01-2022 COVID-19 VACCINE (5 - Moderna series) COVID-19 VACCINE (5 - Moderna series) [facility] Start: 05-20-2022 ADVANCE DIRECTIVE DISCUSSION ADVANCE DIRECTIVE DISCUSSION [facility] Start: 05-20-2022 DEPRESSION ASSESSMENT DEPRESSION ASS ESSMENT [facility] Start: 02-10-2022 End: 04-12-2022 Prostate specific Ag [Mass/volume] in Serum or Plasma PSA/PROSTSPECAG DIAG Lab Routine Prostate cancer (HCC) Rising PSA following treatment for malignant neoplasm of prostate Nocturia Expected: 02/10/2022 (Approximate), Expires: 04/12/2022 [facility] Work Phone: Comment on above: Expected: 02/10/2022 (Approximate), Expires: 04/12/2022 Start: 02-10-2022 End: 04-12-2022 Testosterone [Mass/volume] in Serum or Plasma TESTOSTERONE TOTAL Lab Routine Prostate cancer (HCC) Rising PSA following treatment for malignant neoplasm of prostate Nocturia Expected: 02/10/2022 (Approximate), Expires: 04/12/2022 [facility] Work Phone: Comment on above: Expected: 02/10/2022 (Approximate), Expires: 04/12/2022 Start: 01-18-2022 DIABETES SCREEN DIABETES SCREEN [facility] Start: 01-18-2022 Influenza vaccination INFLUENZA (#1) [facility] Start: 07-14-2021 COVID-19 VACCINE (4 - Booster for Moderna series) COVID-19 VACCINE (4 - Booster for Moderna series) [facility] Start: 05-20-2021 ADVANCE DIRECTIVE DISCUSSION ADVANCE DIRECTIVE DISCUSSION [facility] Start: 05-20-2021 DEPRESSION ASSESSMENT DEPRESSION ASS ESSMENT [facility] Start: 05-08-2021 COVID-19 VACCINE (4 - Booster for Moderna series) COVID-19 VACCINE (4 - Booster for Moderna series) [facility] Start: 01-10-2021 COVID-19 Vaccine (3 - Booster for Moderna series) COVID-19 Vaccine (3 - Booster for Moderna series) [facility] Start: 2020 RSV Immunization for Adults (1 - 1-dose 75+ series) RSV Immunization for Adults (1 - 1-dose 75+ series) [facility] Start: 01-19-2020 Influenza vaccination [facility] Start: 2010 ADVANCE DIRECTIVE DISCUSSION ADVANCE DIRECTIVE DISCUSSION [facility] Start: 2010 Pneumococcal 65+ yea rs Vaccine (1 of 1 - PPSV23) Pneumococcal 65+ years Vaccine (1 of 1 - PPSV23) [place], [place] Start: 2010 Pneumococcal Vaccine : 65+ Years (1 - PCV) Pneumococcal Vaccine: 65+ Years (1 - PCV) [facility] Start: 2010 PNEUMOCOCCAL: 65+ (1 - PCV) PNEUMOCOCCAL: 65+ (1 - PCV) [facility] Start: 2010 PNEUMOVAX AGE 65 AND OVER WITH 5YR LOOKBACK (#1) PNEUMOVAX AGE 65 AND OVER WITH 5YR LOOKBACK (#1) [facility] Start: 2005 RSV Immunization age d 60 or older (1 - 1-dose 60+ series) RSV Immunization aged 60 or older (1 - 1-dose 60+ series) [facility] Start: 1995 Screening for malign ant neoplasm of colon [place], [place] Start: 1995 Shingles Vaccine (1 of 2) Jaramillo gles Vaccine (1 of 2) [place], [place] Start: 1995 SHINGRIX VACCINE (1 of 2) JARAMILLO GRIX VACCINE (1 of 2) [facility] Start: 1995 Tuberculosis screening COLOREC RADHA CANCER SCREENING,SEE MODIFIER [facility] Start: 1985 Lipid panel Lipid screen [place], [place] Start: 1980 LIPID SCREEN LIPID SCREEN [facility] Start: 1964 DTaP/Tdap/Td vaccine (1 - Tdap) DTaP/Tdap/Td vaccine (1 - Tdap) [facility] [facility] Start: 1964 SHINGRIX VACCINE (1 of 2) JARAMILLO GRIX VACCINE (1 of 2) [facility] Start: 1964 Urine microalbumin profile DTAP,TDAP,TD (1 - Tdap) [facility] Start: 1963 Anxiety Screening Anxiety Screening [facility] Start: 1963 Depression Screening Depression Scre ening [facility] Start: 1963 Diabetes mellitus screening Diabetes Screening [facility] Start: 1963 HEPATITIS C SCREENING HEPATITIS C SC DARIO [facility] Start: 1963 Hepatitis C screening [facility] Start: 1961 COVID-19 Vaccine (1 of 2) COVI D-19 Vaccine (1 of 2) [facility] Work Phone: Start: 1957 Adult depression screening assessment DEPRESSION SCREENING [facility] Start: 1957 Depression Monitoring Depression Mirtha veronica [facility] Start: 1957 Depression Screen Depression Screen [facility] Start: 1951 PNEUMOCOCCAL: 65+ (1 - PCV) PNEUMOCOCCAL: 65+ (1 - PCV) [facility] Start: 1945 Annual wellness visit Welcome to Medicare Visit [facility] Start: 1945 Hepatitis B Vaccines (1 of 3 - 3-dose series) Hepatitis B Vaccines (1 of 3 - 3-dose series) [facility] Start: 1945 Hepatitis C screening [place], [place] Start: 1945 Lipid panel Lipid Panel [facility] Start: 1945 Medicare Annual Well ness (AWV) Medicare Annual Wellness (AWV) [facility] Bacteria identified in Blood by Culture Blood Culture Microbiology Pending Discharge 08/07/2024 7:05 AM T [facility] Work Phone: Bacteria identified in Unspecified specimen by Culture Tissue/Wound Culture/Smear Microbiology Routine Fracture of unspecified part of body of left mandible, initial encounter for closed fracture (Multi) 08/05/2024 11:28 AM T [facility] Work Phone: BLADDER SCAN BLADDER SCAN Procedures Routine Nocturia History of prostate cancer Ordered: 08/18/2024 [facility] Comment on above: Ordered: 08/18/2024 End: 08-03-2024 CT Maxillofacial region WO contrast [facility] Service Area Work Phone: Comment on above: Once for 1 Occurrenc es starting 08/03/2024 until 08/03/2024 End: 08-13-2023 CTA Head vessels and Neck vessels WO and W contrast IV [facility] Work Phone: Comment on above: Once for 1 Occurrenc es starting 08/13/2023 until 08/13/2023 Fungus identified in Unspecified specimen by Culture Fungal Culture/Smear Microbiology Routine Fracture of unspecified part of body of left mandible, initial encounter for closed fracture (Multi) 08/05/2024 11:28 AM EDT [facility] Work Phone: OUTSIDE PROCEDURE SCAN OUTSIDE P ROCEDURE SCAN Procedures Ordered: 08/12/2023 [facility] Comment on above: Ordered: 08/12/2023 Patient Education [facility] Work Phone: Patient referral [facility] Work Phone: PET+CT Guidance for localization of tumor of Whole body-- W [id number] IV NM PET/CT PROSTATE WHOLE BODY IMAGING Radiology Routine Prostate cancer (HCC) Rising PSA following treatment for malignant neoplasm of prostate Nocturia 08/22/2023 1:53 PM EDT [facility] Work Phone: End: 08-05-2024 Pulse oximetry, continuous Pulse oximetry, continuous Respiratory Care Routine Continuous until discontinued starting 08/05/2024 [facility] Work Phone: Comment on above: Continuous until dis continued starting 08/05/2024 Surgical pathology study [facility] Service Area Work Phone: Comment on above: Release Upon Orderin g for 1 Occurrences starting 08/05/2024, 1 completed UA DIP B/O UA DIP B/O Lab R outine Nocturia History of prostate cancer Ordered: 08/18/2024 [facility] Work Phone: Comment on above: Ordered: 08/18/2024 [facility] Immunizations Immunization Date Immunization Notes Care Provider Fa cility 07-18-2022 tetanus toxoid, redu brennan diphtheria toxoid, and acellular pertussis vaccine, adsorbed Nickolas Ortiz DO Work Phone: [facility] 02-13-2022 Influenza, high dose seasonal Dr. Jermaine Church DO Work Phone: [facility] 02-13-2022 influenza, high dose seasonal, preservative-free Dr. Jermaine Church Work Phone: [facility] 02-13-2022 influenza virus vacc ine, unspecified formulation Cedrick Newsome MD Work Phone: [facility] 01-30-2022 Covid Moderna Bivale nt Booster; Translations: [Covid Moderna Bivalent Booster] Dr. Jermaine Church Work Phone: [facility] 03-13-2021 Covid (Moderna) Dr. Jermaine cummins Work Phone: [facility] 02-01-2021 Influenza, high dose seasonal Dr. Jermaine Church DO Work Phone: [facility] 02-01-2021 influenza, high dose seasonal, preservative-free Dr. Jermaine Church Work Phone: [facility] 08-10-2020 Covid (Moderna) Dr. Jermaine cummins Work Phone: [facility] 07-17-2020 Covid (Moderna) Dr. Jermaine cummins Work Phone: [facility] 02-11-2020 Influenza, high dose seasonal Dr. Jermaine Church DO Work Phone: [facility] 02-11-2020 influenza, high dose seasonal, preservative-free Dr. Jermaine Church Work Phone: [facility] 02-11-[address] Jermaine Church Work Phone: [facility] 03-16-[address] Jermaine Church Work Phone: [facility] 01-14-2019 influenza, injectabl e, quadrivalent, preservative free Dr. Jermaine Church DO Work Phone: [facility] 01-14-2019 influenza, seasonal, injectable Dr. Jermaine Church Work Phone: [facility] 02-27-2018 Influenza, high dose seasonal Dr. Jermaine Church DO Work Phone: [facility] 02-27-2018 influenza, high dose seasonal, preservative-free Dr. Jermaine Church Work Phone: [facility] 02-15-2018 Influenza, high dose seasonal Dr. Jermaine Church DO Work Phone: [facility] 02-15-2018 influenza, high dose seasonal, preservative-free Dr. Jermaine Church Work Phone: [facility] 03-08-2017 Influenza, high dose seasonal Dr. Jermaine Church DO Work Phone: [facility] 03-08-2017 influenza, high dose seasonal, preservative-free Dr. Jermaine Church Work Phone: [facility] 03-09-2016 Influenza, high dose seasonal Dr. Jermaine Church DO Work Phone: [facility] 03-09-2016 influenza, high dose seasonal, preservative-free Dr. Jermaine Church Work Phone: [facility] 03-03-2015 Influenza, high dose seasonal Dr. Jermaine Church DO Work Phone: [facility] 03-03-2015 influenza, high dose seasonal, preservative-free Dr. Jermaine Church Work Phone: [facility] 09-07-2014 pneumococcal conjuga te vaccine, [address] Jermaine Church Work Phone: [facility] 03-03-2012 pneumococcal polysaccharide vaccine, [address] Jermaine Church Work Phone: [facility] 02-25-2012 influenza, injectabl e, quadrivalent, preservative free Dr. Jermaine Church DO Work Phone: [facility] 02-25-2012 influenza, seasonal, injectable Dr. Jermaine Church Work Phone: [facility] 05-05-2009 novel influenza-H1N1 -09, preservative-free, injectable Dr. Jermaine Church Work Phone: [facility] Payers Date Payer Category Payer Self-pay 2022 Private Health Insurance [id number] 2021 Commercial Managed C are - O [facility] [employer] [id number] 2021 Unknown [employer] [facility] [employer] [id number] 2021-Present [address] [place] [address] Commercial [id number] 2021 Unknown [id number] 2020 Private Health Insurance [employer] [facility] OAP [id number] 2020-Present [phone] [address] [place] [address] Open Access [id number] 2015 Private Health Insurance [facility] xxxxxxxxx 2015-Present [phone] [address] [place] [address] xxxxxxxxx [id number] 2015 Private Health Insurance [id number] 2015 Private Health Insurance [id number] 2010 Medicare MEDICARE MEDICAR E A [id number] 2010-Present [place], [place] Medicare [id number] 2010 Medicare [id number] 2010 Medicare [id number] 1945 Unknown [id number] 1945 Unknown [id number] 1945 Unknown [id number] Unknown [facility] [id number] Unknown [id number] Unknown [id number] Unknown [id number] Social History Date Type Detail Facility Start: 11-04-2015 End: 03-11-2019 Tobacco smoking status NHIS Former smoker [facility] Start: 03-11-2019 End: 06-14-2024 Alcohol intake Lifetime non-drinker (finding) [place] Start: 03-11-2019 History SDOH Alcohol Frequency 1 [place], [place] Start: 1945 Sex Assigned At Not on file [facility] [place] Start: 08-22-2022 End: 12-15-2022 Assertion Unknown if ever smoked [facility] Work Phone: Start: 06-19-2021 End: 08-05-2024 Exposure to SARS-CoV-2 (event) Not sure [facility] Start: 11-05-2019 End: 06-18-2022 Tobacco smoking status NHIS Never smoker [facility] Start: 11-05-2019 End: 06-18-2022 Tobacco use and exposure Never used [facility] Start: 11-05-2019 End: 09-23-2024 Alcohol intake Current drinker of alcohol (finding) [facility] Start: 10-28-2017 Alcohol Comment once monthly [facility] Start: 1945 Sex Assigned At Male [facility] Start: 01-17-2019 End: 12-17-2022 History of Social function [facility] Start: 01-17-2019 End: 12-17-2022 Tobacco use panel [facility] of [facility] use Current smoker [facility] How often to you hav e a drink containing alcohol? Never [facility] Start: 12-18-2021 End: 09-05-2024 Sex Male (finding) [facility] Start: 08-02-2024 Gender identity Identifies as male gender (finding) [facility] Work Phone: Start: 08-02-2024 Sexual orientation Heterosexual (finding) [facility] Work Phone: How hard is it for y ou to pay for the very basics like food, housing, medical care, and heating Not very hard [facility] In the past 12 month s, was there a time when you were not able to pay the mortgage or rent on time? No [facility] Work Phone: Medical Equipment Procedure Code Equipment Code Equipment Origin al Text Equipment Identifier Dates 10 degree poly insert FDA Start: 09-04-2022 ([id number]) Ceramic femoral head prosthesis [id number] FDA Start: 09-04-2022 ([id number]) Coated hip femur prosthesis, modular ()[id number] FDA Start: 09-04-2022 ([id number]) Acetabular shell [id number] FDA Start: 09-04-2022 ([id number]) Orthopaedic bone screw, non-bioabsorbable, sterile ()[id number] FDA Start: 09-04-2022 10 degree poly insert FDA Start: 09-04-2022 10 degree poly insert FDA Start: 09-04-2022 Screw, Mmf, 2.0m m X 12mm, 8mm Thr, Ss - [id number] Start: 08-05-2024 Screw, Mmf, 2.0m m X 16mm, 12mm Thr, Ss - [id number] Start: 08-05-2024 Plate, Threadloc k 3.0 6h Straight W/Bar Ts Melanie Recon - [id number] Start: 08-05-2024 Kls Screws - [id number] Start: 08-05-2024 Comment on above: Description: per ora jaycob jdr 08/06 Kls Screws [id number] Start: 08-05-2024 Comment on above: Description: per ora jaycob jdr 08/06 Kls Screws [id number] Start: 08-05-2024 Comment on above: Description: per ora jaycob jdr 08/06 Kls Screws [id number] Start: 08-05-2024 Comment on above: Description: per ora jaycob jdr 08/06 10 degree poly insert FDA Start: 09-04-2022 10 degree poly insert FDA Start: 09-04-2022 Goals Date Patient Goal Desired Activity /State Functional Status Date Assessment Result Facility 09-19-2022 Functional status Ambulates;Up ad hossein [facility] Work Phone: 09-06-2022 Functional status [facility] [facility] Work Phone: 01-20-2019 Are you deaf, or do you have serious difficulty hearing No 01/20/2019 3:14 PM EDT Chyna Umana RN No [facility] 01-20-2019 Are you blind, or do you have serious difficulty seeing, even when wearing glasses No 01/20/2019 3:14 PM EDT Chyna Umana RN No [facility] 01-20-2019 Do you have serious difficulty walking or climbing stairs No 01/20/2019 3:14 PM EDT Chyna Umana RN No [facility] 01-20-2019 Do you have difficul ty dressing or bathing No 01/20/2019 3:14 PM EDT Chyna Umana RN No [facility] 01-20-2019 Because of a physica l, mental, or emotional condition, do you have difficulty doing errands alone such as visiting a physician's office or shopping No 01/20/2019 3:14 PM EDT Chyna Umana RN No [facility] Mental Status Date Assessment Result Facility 09-19-2022 Cognitive function Voice/Name [facility] Work Phone: 09-06-2022 Cognitive function Voice/Name [facility] Work Phone: 01-20-2019 Because of a physica l, mental, or emotional condition, do you have serious difficulty concentrating, remembering, or making decisions No 01/20/2019 3:14 PM EDT Chyna Umana RN No [facility] Clinical Notes 08-14-2021 to 09-23-2024 Mary Gonzalez MD - 09/23/2024 1:53 PM EDTPatient Rafael Zamora APRN.CNP, DNP - 08/18/2024 10:30 AM Elizabeth Salinas RN - 08/08/2024 11:47 AM Krista Rust MD - 08/07/2024 9:29 AM EDT Note Date & Type Note Facility 09-23-2024 Note HNO ID: [id number] Author: MARY GONZALZE MD Service: ? 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 New vertigo, just broke his jaw as wellno LAB RESULTS Creatinine Date Value Ref Range Status 01/18/2019 1.10 0.67 - 1.17 mg/dL Final PSA (ng/mL) Date Value 09/08/2024 1.71 03/02/2024 0.64 11/11/2023 1.18 07/22/2023 4.4 04/08/2023 2.3 06/18/2022 0.32 07/12/2021 4.5 03/27/2021 3.7 11/18/2020 2.4 07/12/2020 2.4 02/22/2020 1.8 Color (no units) Date Value 01/17/2019 YELLOW Glucose, Urine (mg/dL) Date Value 01/17/2019 NEGATIVE Bilirubin, Urine (no units) Date Value 01/17/2019 NEGATIVE Ketones, Urine (mg/dL) Date Value 01/17/2019 NEGATIVE Specific [place], Ur (no units) Date Value 01/17/2019 1.020 pH, Urine (no units) Date Value 01/17/2019 8.5 Protein, Urine (mg/dL) Date Value 01/17/2019 NEGATIVE Nitrites Urine (no units) Date Value 01/17/2019 NEGATIVE Leukocytes Esterase (no units) Date Value 01/17/2019 NEGATIVE ALLERGIES Allergen Reactions Morphine Other: See Comments Ofloxacin Other: See Comments Percocet [Oxycodone* Unknown MEDICATIONS: solifenacin (VESICARE) 5 mg tablet Take 1 tablet by mouth once daily. amLODIPine (NORVASC) 2.5 mg tablet Take 2.5 mg by mouth. rivaroxaban (XARELTO) 20 mg tablet Take 20 mg by mouth daily with dinner. Cholecalciferol, Vitamin D3, 1,000 unit cap Take 1,000 Units by mouth once daily. doxazosin (CARDURA) 2 mg tablet Take 2 mg by mouth daily at bedtime. omeprazole (PRILOSEC) 20 mg capsule Take 40 mg by mouth daily at bedtime. megestrol (MEGACE) 20 mg tablet Take 1 tablet (20 mg) by mouth two times a day. (Patient not taking: Reported on 09/23/2024) amitriptyline (ELAVIL) 10 mg tablet TAKE 1 TAB BY MOUTH AT SUPPERTIME FOR 7 DAYS, THEN TAKE 2 TABS BY MOUTH SUPPERTIME THEREAFTER (Patient not taking: Reported on 08/18/2024) bicalutamide (CASODEX) 50 mg tablet TAKE 1 TABLET BY MOUTH EVERY DAY (Patient not taking: Reported on 09/23/2024) omega 6-azd-ngz-fish oil (FISH OIL) 100-160-1,000 mg cap Take by mouth. (Patient not taking: Reported on 09/23/2024) meclizine (ANTIVERT) 25 mg tab Take 1 tablet by mouth three times daily as needed. (Patient not taking: Reported on 09/23/2024) ondansetron orally disintegrating (ZOFRAN ODT) 4 mg disintegrating tablet Take 1 tablet by mouth every 8 hours as needed. (Patient not taking: Reported on 09/23/2024) calcium carbonate (CALTRATE) 600 mg calcium (1,500 mg) tab Take 1 tablet by mouth once daily. (Patient not taking: Reported on 08/18/2024) TURMERIC-HERBAL COMPLEX NO.278 ORAL Take 1 tablet by mouth once daily. (Patient not taking: Reported on 08/18/2024) amLODIPine (NORVASC) 5 mg tablet Take 5 mg by mouth once daily. (Patient not taking: Reported on 08/18/2024) REVIEW OF SYSTEMS GENERAL:no unintentional weight loss, malaise or fevers. NEUROLOGIC: pt is alert and oriented GENITOURINARY: No history of dysuria, frequency or incontinence The remainder of the ROS was reviewed and is negative. HISTORIES PAST MEDICAL HISTORY Diagnosis Date Arthritis Elevated PSA GERD (gastroesophageal reflux disease) Melanoma (HCC) Prostate cancer (HCC) History reviewed. No pertinent family history. PAST SURGICAL HISTORY Procedure Laterality Date EXTENSIVE JAW SURGERY 06/14/2024 LAPS PROSTECT RETROPUBIC RAD W/NRV SPARING ROBOT MELANOMA OF SKIN EXCISION SYN RPT PAST SURGICAL HISTORY OF removal of skin cancer from nose TOTAL HIP REPLACEMENT 09/04/2022 SOCIAL HISTORY Social History Tobacco Use Smoking status: Never Smokeless tobacco: Never Vaping Use Vaping status: Never Used Substance Use Topics Alcohol use: Yes Comment: once monthly Drug use: No PHYSICAL EXAMINATION General appearance: Well appearing, alert, in no acute distress, well-hydrated, well nourished Psych Alert and oriented to person, place and time Respiratory: no wheezing or rhonchi Genitourinary: MALE EXAM: Exam NOT Indicated 09/08/2024 PSA 1.7, test 490 03/02/2024 PSA 0.6 11/11/2023 PSA 1.2 09/05/2023 Lupron 08/22/2023 [facility] PET 0.4cm area uptake in prostatectomy bed 07/22/2023 PSA 4.4 06/18/2022 PSA 0.3 12/12/2021 Lupron 10/27/2021 PSA 2.0 07/28/2021 PSMA PET ++ two <1cm areas right pelvic fossa suspicious 07/12/2021 PSA 4.5 11/18/2020 PSA 2.4 07/12/2020 PSA 2.4 02/23/2020 PSA 1.8 10/27/2019 PSA 1.4 08/25/2019 PSA 1.7 10/20/2018 PSA 1.1 10/15/2017 PSA 0.6 07/30/2016: PSA: 0.4 01/16/2016: PSA: 0.3 07/12/2015: PSA: 0.3 01/03/2015: PSA: 0.29 09/13/2014: salvage IMRT complete 07/08/2014: PSA: 0.27 06/14/2014: PSA: 0.29 02/17/2014: PSA: 0.20 08/21/2013: PSA: 0.15 02/05/2008: PSA: 0.1 01/15/2008: PSA: 0.12 (more content not included)... 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 New vertigo, just broke his jaw as wellno LAB RESULTS Creatinine Date Value Ref Range Status 01/18/2019 1.10 0.67 - 1.17 mg/dL Final PSA (ng/mL) Date Value 09/08/2024 1.71 03/02/2024 0.64 11/11/2023 1.18 07/22/2023 4.4 04/08/2023 2.3 06/18/2022 0.32 07/12/2021 4.5 03/27/2021 3.7 11/18/2020 2.4 07/12/2020 2.4 02/22/2020 1.8 Color (no units) Date Value 01/17/2019 YELLOW Glucose, Urine (mg/dL) Date Value 01/17/2019 NEGATIVE Bilirubin, Urine (no units) Date Value 01/17/2019 NEGATIVE Ketones, Urine (mg/dL) Date Value 01/17/2019 NEGATIVE Specific [place], Ur (no units) Date Value 01/17/2019 1.020 pH, Urine (no units) Date Value 01/17/2019 8.5 Protein, Urine (mg/dL) Date Value 01/17/2019 NEGATIVE Nitrites Urine (no units) Date Value 01/17/2019 NEGATIVE Leukocytes Esterase (no units) Date Value 01/17/2019 NEGATIVE ALLERGIES Allergen Reactions Morphine Other: See Comments Ofloxacin Other: See Comments Percocet [Oxycodone* Unknown MEDICATIONS: solifenacin (VESICARE) 5 mg tablet Take 1 tablet by mouth once daily. amLODIPine (NORVASC) 2.5 mg tablet Take 2.5 mg by mouth. rivaroxaban (XARELTO) 20 mg tablet Take 20 mg by mouth daily with dinner. Cholecalciferol, Vitamin D3, 1,000 unit cap Take 1,000 Units by mouth once daily. doxazosin (CARDURA) 2 mg tablet Take 2 mg by mouth daily at bedtime. omeprazole (PRILOSEC) 20 mg capsule Take 40 mg by mouth daily at bedtime. megestrol (MEGACE) 20 mg tablet Take 1 tablet (20 mg) by mouth two times a day. (Patient not taking: Reported on 09/23/2024) amitriptyline (ELAVIL) 10 mg tablet TAKE 1 TAB BY MOUTH AT SUPPERTIME FOR 7 DAYS, THEN TAKE 2 TABS BY MOUTH SUPPERTIME THEREAFTER (Patient not taking: Reported on 08/18/2024) bicalutamide (CASODEX) 50 mg tablet TAKE 1 TABLET BY MOUTH EVERY DAY (Patient not taking: Reported on 09/23/2024) omega 2-lkh-rxu-fish oil (FISH OIL) 100-160-1,000 mg cap Take by mouth. (Patient not taking: Reported on 09/23/2024) meclizine (ANTIVERT) 25 mg tab Take 1 tablet by mouth three times daily as needed. (Patient not taking: Reported on 09/23/2024) ondansetron orally disintegrating (ZOFRAN ODT) 4 mg disintegrating tablet Take 1 tablet by mouth every 8 hours as needed. (Patient not taking: Reported on 09/23/2024) calcium carbonate (CALTRATE) 600 mg calcium (1,500 mg) tab Take 1 tablet by mouth once daily. (Patient not taking: Reported on 08/18/2024) TURMERIC-HERBAL COMPLEX NO.278 ORAL Take 1 tablet by mouth once daily. (Patient not taking: Reported on 08/18/2024) amLODIPine (NORVASC) 5 mg tablet Take 5 mg by mouth once daily. (Patient not taking: Reported on 08/18/2024) REVIEW OF SYSTEMS GENERAL:no unintentional weight loss, malaise or fevers. NEUROLOGIC: pt is alert and oriented GENITOURINARY: No history of dysuria, frequency or incontinence The remainder of the ROS was reviewed and is negative. HISTORIES PAST MEDICAL HISTORY Diagnosis Date Arthritis Elevated PSA GERD (gastroesophageal reflux disease) Melanoma (HCC) Prostate cancer (HCC) History reviewed. No pertinent family history. PAST SURGICAL HISTORY Procedure Laterality Date EXTENSIVE JAW SURGERY 06/14/2024 LAPS PROSTECT RETROPUBIC RAD W/NRV SPARING ROBOT MELANOMA OF SKIN EXCISION SYN RPT PAST SURGICAL HISTORY OF removal of skin cancer from nose TOTAL HIP REPLACEMENT 09/04/2022 SOCIAL HISTORY Social History Tobacco Use Smoking status: Never Smokeless tobacco: Never Vaping Use Vaping status: Never Used Substance Use Topics Alcohol use: Yes Comment: once monthly Drug use: No PHYSICAL EXAMINATION General appearance: Well appearing, alert, in no acute distress, well-hydrated, well nourished Psych Alert and oriented to person, place and time Respiratory: no wheezing or rhonchi Genitourinary: MALE EXAM: Exam NOT Indicated 09/08/2024 PSA 1.7, test 490 03/02/2024 PSA 0.6 11/11/2023 PSA 1.2 09/05/2023 Lupron 08/22/2023 PSMA PET 0.4cm area uptake in prostatectomy bed 07/22/2023 PSA 4.4 06/18/2022 PSA 0.3 12/12/2021 Lupron 10/27/2021 PSA 2.0 07/28/2021 PSMA PET ++ two <1cm areas right pelvic fossa suspicious 07/12/2021 PSA 4.5 11/18/2020 PSA 2.4 07/12/2020 PSA 2.4 02/23/2020 PSA 1.8 10/27/2019 PSA 1.4 08/25/2019 PSA 1.7 10/20/2018 PSA 1.1 10/15/2017 PSA 0.6 07/30/2016: PSA: 0.4 01/16/2016: PSA: 0.3 07/12/2015: PSA: 0.3 01/03/2015: PSA: 0.29 09/13/2014: salvage IMRT complete 07/08/2014: PSA: 0.27 06/14/2014: PSA: 0.29 02/17/2014: PSA: 0.20 08/21/2013: PSA: 0.15 02/05/2008: PSA: 0.1 01/15/2008: PSA: 0.12 12/02/2007: RALP Gl 7, neg margins 06/10/2007: PSA: 6.3 (PROSCAR) Assessment and Plan: BPH/LUTS- nocturia 2x, no hematuria/dysuria, freq Q 3h, no urgency or leak - on Cardura 2mg for BP - now on Vesicare and working well LBP- chronic, gets steroid injection Q 3 mths ED- weak erections and looses quickly, no help with PO pills in past Prostate cancer- s/p RALP followed salvage IMRT, he previously refused oncology referral and not interested in additional XRT or salvage therapies - last Lupron 08/2023, again he had hot flashes and less energy (no help with Megace) after injection, latest PSA 1.7 but it has fluctuated in the past; I just got over the hormone tx - he's hesitant to do another injection, discussed Relugoliox so it an be stopped if side effects, he'll consider - PSA and test in 6 mths documented in this encounter [facility] 09-05-2024 Radiology Diagnostic study note [facility] Imaging Services [address] [place], [place] [address] Sinus/Facial Bone MR#: [id number] Acct: [id number] Name: SEE PARIS Rep #: [id number] : 1945 M 79 From: Jon Gonzales MD PCP: Dr. Jermaine Church DO Status: RE G ER Study:Sinus/Facial Bone Date of Exam: Exam# [id number] Ordering Dr: Janene Kohler DO PROCEDURE: SINUS/FACIAL BONE REASON FOR EXAM: INJURY TECHNIQUE: CT of the paranasal sinuses without contrast. Coronal and Sagittal reconstruction series were provided. One or more dose reduction techniques were used (e.g., Automated exposure control, adjustment of the mA and/or kV according to patient size, use of iterative reconstruction technique). COMPARISON: None. FINDINGS: No acute fracture. Right cheek soft tissue swelling. Globes appear intact without retro bulbar stranding. Very mild mucoperiosteal thickening maxillary sinuses. No air-fluid levels. Incidental osteoma right sphenoid sinus. [place] artifact from dental amalgam and fixation hardware. Status post right mandibular ORIF with plate and screws and non osseous united fracture plane, correlate with history. 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 TMJs appear normally located. Mastoids are clear. CT/Sinus/Facial Bone IMPRESSION: No acute fracture. Right cheek soft tissue swelling. Globes appear intact without retro bulbar stranding. [place] artifact from dental amalgam and fixation hardware. Status post right mandibular ORIF with plate and screws and non osseous united fracture plane, correlate with history. 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 Reading Location: [facility] CC: Dr. Jermaine Church DO; Ben Kohler DO ~ Exhaust Tender: Signed [facility] 09-05-2024 Radiology Diagnostic study note [facility] Imaging Services [address] [place] [id number] Spine Cervical without Contras MR#: [id number] Acct: [id number] Name: SEE PARIS Rep #: [id number] : 1945 M 79 From: Jon Gonzales MD PCP: Dr. Jermaine Church DO Status: RE G ER Study:Spine Cervical without Contras Date of Exam: 09/05/24 Exam# [id number] Ordering Dr: Janene Kohler DO PROCEDURE: SPINE CERVICAL WITHOUT CONTRAS 09/05/2024 REASON FOR EXAM: PAIN/FALL TECHNIQUE: Cervical spine CT without contrast. Coronal and Sagittal reconstruction series were provided. One or more dose reduction techniques were used (e.g., Automated exposure control, adjustment of the mA and/or kV according to patient size, use of iterative reconstruction technique RADIATION DOSE SUMMARY: CTDlvol: 23.51 mGy DLP: 526.96 mGycm COMPARISON: None available FINDINGS: No fracture or malalignment. No prevertebral soft tissue swelling. Multilevel spondylosis/discogenic change appears greatest at C3-4 and C6-7. Visualized apices are clear. CT/Spine Cervical without Contras IMPRESSION: No fracture or malalignment. Reading Location: [facility] CC: Dr. Jermaine Church DO; Ben Kohler DO ~ Exhaust Tender: Signed [facility] 09-05-2024 Radiology Diagnostic study note [facility] Imaging Services [address] [place] [id number] Brain/Head without Contrast MR#: [id number] Acct: [id number] Name: SEE PARIS Rep #: [id number] : 1945 M 79 From: Jon Gonzales MD PCP: Dr. Jermaine Church DO Status: RE G ER Study:Brain/Head without Contrast Date of Exa m: 09/05/24 Exam# [id number] Ordering Dr: Janene Kohler DO PROCEDURE: BRAIN/HEAD WITHOUT CONTRAST 09/05/2024 REASON FOR EXAM: HEAD INJURY TECHNIQUE: Head CT without intravenous contrast. Coronal and Sagittal reconstruction serieswere provided. One or more dose reduction techniques were used (e.g., Automated exposure control, adjustment of the mA and/or kV according to patient size, use of iterative reconstruction technique. RADIATION DOSE SUMMARY: CTDlvol: 44.99 mGy DLP: 897.35 mGycm COMPARISON: None available FINDINGS: No intracranial hemorrhage, mass effect or calvarial fracture. The ventricles are within limits and midline. Convexity volume loss, atrophy. CT/Brain/Head without Contrast IMPRESSION: No intracranial hemorrhage, mass effect or calvarial fracture. Reading Location: [id number] CC: Dr. Jermaine Church DO; Ben Kohler DO ~ Exhaust Tender: Signed [facility] 09-03-2024 Radiology Diagnostic study note [facility] Imaging Services [address] [place] [address] Abdomen/Pelvis W IV Cont ONLY MR#: [id number] Acct: [id number] Name: SEE PARIS Rep #: [id number] : 1945 M 79 From: Matt Silva MD PCP: Dr. Jermaine Church DO Status: RE G ER Study:Abdomen/Pelvis W IV Cont ONLY Date of E xam: 09/03/24 Exam# [id number] Ordering Dr: Tre Rankin DO PROCEDURE: ABDOMEN/PELVIS W IV CONT ONLY 09/03/2024 REASON FOR EXAM: LOWER ABD PAIN. TECHNIQUE: Abdomen and pelvis CT with intravenous contrast. Coronal and Sagittal reconstruction series were provided. PATIENT PREPARATION: Per protocol ORAL CONTRAST TYPE: None. CONTRAST: VOLUME: 100 mL Isovue-350 gauge IV One or more dose reduction techniques were used (e.g., Automated exposure control, adjustment of the mA and/or kV according to patient size, use of iterative reconstruction technique. RADIATION DOSE SUMMARY: CTDlvol: 28.8 mGy DLP: 1402 mGycm COMPARISON: None. FINDINGS: Diffuse colonic diverticulosis. Moderate amount of fecal residue in the rectosigmoid colon. Associated mild uncomplicated stercoral colitis without perforation or pneumatosis coli. Mild bilateral basilar atelectatic pulmonary changes. Small sliding hiatal hernia. Diffuse thickening of the stomach suggestive of gastritis. A few scattered simple hepatic cysts are noted with the largest measuring 4 mm. No follow-up is needed. Possible gallstone. No CT evidence of acute cholecystitis. Interposition of the colon between the liver and right hemidiaphragm, benign chronic finding. Prior radical prostatectomy. Scattered left renal peripelvic cysts are noted with the largest measuring 3.2 cm. No follow-up is needed. Bilateral fat containing inguinal hernias without incarceration. Unremarkable metallic prosthesis of the left hip. Mild osteopenia. Moderate diffuse spondylosis. Grade 2 anterolisthesis of L5 on S1 secondary to bilateral pars defects, chronicfinding. Normal extrahepatic biliary system. Normal spleen. Normal pancreas. Normal bilateral adrenal glands. Normal size of the right kidney. There is no right renal mass. There are no right renal calculi. There is no right hydronephrosis. Normal visualized right ureter. Normal size of the left kidney. There is no left renal mass. There are no leftrenal calculi. There is no left hydronephrosis. Normal visualized left ureter. Normal small intestine. The appendix is visualized and appears normal. There is no demonstrated peritoneal fluid. Mild atheromatous plaques of the abdominal aorta. Normal inferior vena cava. Normal retroperitoneum. Normal urinary bladder. There is no pelvic mass lesion or lymphadenopathy. There is no pelvic fluid. CT/Abdomen/Pelvis W IV Cont ONLY IMPRESSION: 1. Diffuse colonic diverticulosis. 2. Moderate amount of fecal residue in the rectosigmoid colon. Associated mild stercoral colitis without perforation or pneumatosis coli. 3. Mild bilateral basilar atelectatic pulmonary changes. 4. Small sliding hiatal hernia. 5. Diffuse thickening of the stomach suggestive of gastritis. 6. A few scattered simple hepatic cysts are noted with the largest measuring 4 mm. No follow-up is needed. 7. Possible gallstone. 8. No CT evidence of acute cholecystitis. 9. Interposition of the colon between the liver and right hemidiaphragm, benign chronic finding. 10. Prior radical prostatectomy. 11. Scattered left renal peripelvic cysts are noted with the largest measuring 3.2 cm. No follow-up is needed. 12. Bilateral fat containing inguinal hernias without incarceration. 13. Unremarkable metallic prosthesis of the left hip. 14. Mild osteopenia. 15. Moderate diffuse spondylosis. 16. 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 Reading Location: [id number] CC: Dr. Lizzie Rankin, DO; Dr. Jermaine Church, DO ~ Exhaust Tender: Signed [facility] 08-18-2024 Instructions Rafael Moncada APRN.VARGAS ERAZO - 08/18/2024 10:54 AM EDT We discussed your urinary frequency and nighttime symptoms: - You are experiencing urinary frequency every 2 hours, including 4 times per night, which is disrupting your sleep. This is likely due to overactive bladder symptoms related to your prostate surgery history. - I prescribed Trospium to help reduce bladder spasms and nighttime frequency. Please take this medication 2 hours before bedtime. A 30-day supply with 2 refills has been sent to your preferred [facility] pharmacy on [address] in [place]. - Continue taking the medication daily until your follow-up appointment in 4 to 6 weeks. Do not stop taking it early, even if you do not notice immediate improvement. - If this medication does not work, we have other options, including increasing the dose, switching to an extended-release formulation, or trying alternative medications such as Myrbetriq or Gemtesa. We discussed additional strategies to manage your symptoms: - You may try Kegel exercises to strengthen your pelvic muscles. Squeeze your pelvic muscles, hold for a few seconds, and then relax. This may help reduce nighttime frequency. - If symptoms persist, we can consider a referral to a physical therapist specializing in pelvic floor dysfunction and urinary symptoms. We reviewed your urinalysis results: - Your urinalysis today showed no signs of infection (no blood, leukocytes, or nitrites). There is no evidence of a urinary tract infection contributing to your symptoms. - Trace ketones were noted but are not significant at this time. Follow-up: - Please schedule a follow-up appointment with Dr. Gonzalez in September to assess how the medication is working. Your appt is already scheduled. - You are scheduled to see Dr. Gonzalez in September for PSA testing. If the medication is effective, I can provide a longer prescription to last until your next appointment with him. If you have any questions or concerns before your follow-up, please contact our office. documented in this encounter [facility] 08-18-2024 History of Present illness Narrative [facility] MALE PATIENT - HISTORY AND PHYSICAL EXAMINATION PATIENT: See Paris (79 year old) PCP: Jermaine Church DO CHIEF COMPLAINT: LUTS HISTORY OF PRESENT ILLNESS: 79 year old year old male with LUTS. C/o burning with urination. Past med Hx: Hx of prostate cancer, ED, BPH Patient of Dr. Gonzalez. HX of prostate cancer. Prostate cancer- s/p RALP followed salvage IMRT, he previously refused oncology referral and not interested in additional XRT or salvage therapies. Last Lupron 08/2023, again he had hot flashes and less energy (no help with Megace) after injection, latest PSA 0.6 The patient reports an increase in nocturia, now occurring every 2 hours, which began around November. Previously, he experienced nocturia 2-4 times per night but was able to return to sleep without difficulty. He denies urgency, urinary incontinence, or the use of pads. He describes his urinary stream as medium and denies any significant weak stream or feeling of incomplete bladder emptying. He has not been on any overactive bladder medications. The patient has a history of prostate cancer and underwent a prostatectomy and hormone therapy, with the last Lupron injection administered in August of the previous year. He decided to discontinue further treatment at that time. He was previously prescribed megestrol for hot flashes, which he reports was ineffective. He also mentions a recent fall on ice on June 14, resulting in a jaw injury that required pin placement. The injury became infected, necessitating a 3-day hospital stay for IV antibiotics. PRESENTING HISTORY: Hematuria: none Obstructive voiding symptoms: none. Irritative voiding symptoms: nocturia Urinary retention: no Urinary incontinence: no Urinary tract infection: no 03/02/2024 PSA 0.6 11/11/2023 PSA 1.2 09/05/2023 Lupron 08/22/2023 PSMA PET 0.4cm area uptake in prostatectomy bed 07/22/2023 PSA 4.4 06/18/2022 PSA 0.3 12/12/2021 Lupron 10/27/2021 PSA 2.0 07/28/2021 PSMA PET ++ two <1cm areas right pelvic fossa suspicious 07/12/2021 PSA 4.5 11/18/2020 PSA 2.4 07/12/2020 PSA 2.4 02/23/2020 PSA 1.8 10/27/2019 PSA 1.4 08/25/2019 PSA 1.7 10/20/2018 PSA 1.1 10/15/2017 PSA 0.6 07/30/2016: PSA: 0.4 01/16/2016: PSA: 0.3 07/12/2015: PSA: 0.3 01/03/2015: PSA: 0.29 09/13/2014: salvage IMRT complete 07/08/2014: PSA: 0.27 06/14/2014: PSA: 0.29 02/17/2014: PSA: 0.20 08/21/2013: PSA: 0.15 02/05/2008: PSA: 0.1 01/15/2008: PSA: 0.12 12/02/2007: RALP Gl 7, neg margins 06/10/2007: PSA: 6.3 (PROSCAR) Patient Entered Questionnaires: INTERNATIONAL PROSTATE SYMPTOM SCORE (I-PSS) 1)INCOMPLETE EMPTYING Over the past month, how often have you had a sensation of not emptying your bladder completely after you finished urinating? SCORE: 0- Not at all 2)FREQUENCY Over the past month, how often have you had to urinate again less than two hours after you finished urinating? SCORE: 1- Less than 1 time in 5 3)INTERMITTENCY Over the past month, how often have you found you stopped and started again several times when you urinated? SCORE: 0- Not at all 4)URGENCY Over the past month, how often have you found it difficult to postpone urination? SCORE: 0- Not at all 5)WEAK STREAM Over the past month, how often have you had a weak stream? SCORE: 1- Less than 1 time in 5 6)STRAINING Over the past month, how often have you had to push or strain to begin urination SCORE: 1- Less than 1 time in 5 7)NOCTURIA Over the past month, how many times did you most typically get up to urinate from the time you went to bed at night until the time you get up in the morning? SCORE:4 TOTAL I-PSS SCORE: 7 QUALITY OF LIFE DUE TO URINARY SYMPTOMS If you were to spend the rest of yur life with your urinary condition just the way it is now, how would you feel about that? 4- Mostly dissatisfied PROMIS Global Health Percentiles provide an indication of how the patient's score ranks in relation to the general population. Higher percentile rankings indicate better function/quality of life. 50th percentile is the average of the general population and indicates half of respondents had a worse score. HISTORY: PAST MEDICAL HISTORY Diagnosis Date Arthritis Elevated PSA GERD (gastroesophageal reflux disease) Melanoma (HCC) Prostate cancer (HCC) PAST SURGICAL HISTORY Procedure Laterality Date LAPS PROSTECT RETROPUBIC RAD W/NRV SPARING ROBOT MELANOMA OF SKIN EXCISION SYN RPT PAST SURGICAL HISTORY OF removal of skin cancer from nose TOTAL HIP REPLACEMENT 09/04/2022 Social History Tobacco Use Smoking status: Never Smokeless tobacco: Never Vaping Use Vaping status: Never Used Substance Use Topics Alcohol use: Yes Comment: once monthly Drug use: No No family history on file. MEDICATIONS: Current Outpatient Medications Medication Sig sulfamethoxazole-trimethoprim (BACTRIM DS) 800-160 mg per tablet Take 1 tablet by mouth two times a day. metroNIDAZOLE (FLAGYL) 500 mg tablet Take 500 mg by mouth. amLODIPine (NORVASC) 2.5 mg tablet Take 2.5 mg by mouth. rivaroxaban (XARELTO) 20 mg tablet Take 20 mg by mouth daily with dinner. Cholecalciferol, Vitamin D3, 1,000 unit cap Take 1,000 Units by mouth once daily. doxazosin (CARDURA) 2 mg tablet Take 2 mg by mouth daily at bedtime. omeprazole (PRILOSEC) 20 mg capsule Take 40 mg by mouth daily at bedtime. trospium (SANCTURA) 20 mg tablet Take 1 tablet by mouth daily at bedtime. For overactive bladder megestrol (MEGACE) 20 mg tablet Take 1 tablet (20 mg) by mouth two times a day. (Patient not taking: Reported on 08/18/2024) amitriptyline (ELAVIL) 10 mg tablet TAKE 1 TAB BY MOUTH AT SUPPERTIME FOR 7 DAYS, THEN TAKE 2 TABS BY MOUTH SUPPERTIME THEREAFTER (Patient not taking: Reported on 08/18/2024) bicalutamide (CASODEX) 50 mg tablet TAKE 1 TABLET BY MOUTH EVERY DAY (Patient not taking: Reported on 08/18/2024) omega 9-azj-dgq-fish oil (FISH OIL) 100-160-1,000 mg cap Take by mouth. (Patient not taking: Reported on 08/18/2024) meclizine (ANTIVERT) 25 mg tab Take 1 tablet by mouth three times daily as needed. (Patient not taking: Reported on 08/18/2024) ondansetron orally disintegrating (ZOFRAN ODT) 4 mg disintegrating tablet Take 1 tablet by mouth every 8 hours as needed. (Patient not taking: Reported on 08/18/2024) calcium carbonate (CALTRATE) 600 mg calcium (1,500 mg) tab Take 1 tablet by mouth once daily. (Patient not taking: Reported on 08/18/2024) TURMERIC-HERBAL COMPLEX NO.278 ORAL Take 1 tablet by mouth once daily. (Patient not taking: Reported on 08/18/2024) amLODIPine (NORVASC) 5 mg tablet Take 5 mg by mouth once daily. (Patient not taking: Reported on 08/18/2024) No current facility-administered medications for this visit. LABS: Latest Ref Rng 08/18/2024 GLUCOSE UA (POCT) Negative mg/dL Negative BILIRUBIN UA (POCT) Negative Negative KETONE UA (POCT) Negative mg/dL Trace SPECIFIC GRAVITY UA (POCT) 1.005 - 1.030 >=1.030 HEMOGLOBIN/BLOOD UA (POCT) Negative Negative PH UA (POCT) 4.5 - 8.0 5.5 PROTEIN UA (POCT) Negative mg/dL Negative UROBILINOGEN UA (POCT) Normal E.U./dL 0.2 NITRITE UA (POCT) Negative Negative LEUKOCYTES UA (POCT) Negative Negative COLOR UA (POCT) Brianne CLARITY UA (POCT) Slightly Cloudy Creatinine Creatinine Date Value Ref Range Status 01/18/2019 1.10 0.67 - 1.17 mg/dL Final 01/17/2019 1.03 0.67 - 1.17 mg/dL Final PSA PSA (ng/mL) Date Value 03/02/2024 0.64 11/11/2023 1.18 07/22/2023 4.4 04/08/2023 2.3 OFFICE DATA: POST-VOID RESIDUAL BLADDER VOLUME: YES, 9 cc IMAGING: No results found. No results found. Review of Systems: PAIN ASSESSMENT: CURRENTLY HAVING NO PAIN GENERAL: No weight loss, malaise or fevers GI: No nausea, vomiting MUSCULOSKELETAL: Negative for generalized joint pain SKIN: Negative for rash HEMATOLOGY/LYMPHOLOGY: Negative for swollen nodes All other systems reviewed and noncontributory PHYSICAL EXAMINATION: SENSITIVE EXAMINATION CONSENT: The sensitive examination was discussed with the Patient or Patient's Authorized Watch Hairspring Assembler. As applicable, any other physician, advance practice provider, medical student, or other health professional student that will be observing or involved in the sensitive examination for educational or training purposes was discussed with the Patient or Authorized Watch Hairspring Assembler. The Patient or Authorized Watch Hairspring Assembler has agreed to proceed with the sensitive examination. VITALS: Ht 177.8 cm (5' 10) Wt 88 kg (194 lb 0.1 oz) BMI 27.84 kg/m GENERAL: alert, no distress, normal affect RESPIRATORY: normal effort EXTREMITIES: normal SKIN: normal NEUROLOGIC: normal ASSESSMENT and PLAN 1. Nocturia (R35.1) Chronic and not well controlled. Increased urinary frequency at night, urinating approximately every 2 hours. No urgency or urinary incontinence reported. Urinalysis shows no signs of infection, hematuria, leukocytes, or nitrites; trace ketones present but not significant. PVR = 9 ml UA = ket Plan: - Initiated Trospium, to be taken 2 hours before bedtime to reduce bladder spasms and frequency. - Educated patient on Kegel exercises to strengthen pelvic muscles. - Follow-up in 4-6 weeks to assess effectiveness of medication. - with Dr. Gonzalez. - If symptoms persist, consider increasing Trospium dose, switching to extended-release formulation, or trying alternative medications such as Myrbetriq or Gemtesa. - Discussed potential referral to pelvic floor physical therapy if needed. 2. History of prostate cancer (Z85.46) Post-prostatectomy and hormone therapy; last Lupron injection in August of last year. PSA levels previously undetectable. - Continue monitoring PSA levels; next appointment with Dr. Gonzalez in September. Orders: - UA DIP B/O - BLADDER SCAN - TROSPIUM 20 MG TABLET The patient consented to the use of [employer] software for draft documentation of the visit consistent with [facility] s Notice of Privacy Practices. Rafael Moncada DNP, DAMAGE ASSESSOR Department of Urology [facility] documented in this encounter [facility] 08-18-2024 Note HNO ID: [id number] Author: RAFAEL MONCADA APRN.VARGAS ERAZO Service: ? Author Type: Nurse Practitioner Type: Progress Notes Filed: 08/18/2024 11:04 Note Text: [facility] MALE PATIENT - HISTORY AND PHYSICAL EXAMINATION PATIENT: See Paris (79 year old) PCP: Jermaine Church DO CHIEF COMPLAINT: LUTS HISTORY OF PRESENT ILLNESS: 79 year old year old male with LUTS. C/o burning with urination. Past med Hx: Hx of prostate cancer, ED, BPH Patient of Dr. Gonzalez. HX of prostate cancer. Prostate cancer- s/p RALP followed salvage IMRT, he previously refused oncology referral and not interested in additional XRT or salvage therapies. Last Lupron 08/2023, again he had hot flashes and less energy (no help with Megace) after injection, latest PSA 0.6 The patient reports an increase in nocturia, now occurring every 2 hours, which began around November. Previously, he experienced nocturia 2-4 times per night but was able to return to sleep without difficulty. He denies urgency, urinary incontinence, or the use of pads. He describes his urinary stream as medium and denies any significant weak stream or feeling of incomplete bladder emptying. He has not been on any overactive bladder medications. The patient has a history of prostate cancer and underwent a prostatectomy and hormone therapy, with the last Lupron injection administered in August of the previous year. He decided to discontinue further treatment at that time. He was previously prescribed megestrol for hot flashes, which he reports was ineffective. He also mentions a recent fall on ice on June 14, resulting in a jaw injury that required pin placement. The injury became infected, necessitating a 3-day hospital stay for IV antibiotics. PRESENTING HISTORY: Hematuria: none Obstructive voiding symptoms: none. Irritative voiding symptoms: nocturia Urinary retention: no Urinary incontinence: no Urinary tract infection: no 03/02/2024 PSA 0.6 11/11/2023 PSA 1.2 09/05/2023 Lupron 08/22/2023 PSMA PET 0.4cm area uptake in prostatectomy bed 07/22/2023 PSA 4.4 06/18/2022 PSA 0.3 12/12/2021 Lupron 10/27/2021 PSA 2.0 07/28/2021 PSMA PET ++ two <1cm areas right pelvic fossa suspicious 07/12/2021 PSA 4.5 11/18/2020 PSA 2.4 07/12/2020 PSA 2.4 02/23/2020 PSA 1.8 10/27/2019 PSA 1.4 08/25/2019 PSA 1.7 10/20/2018 PSA 1.1 10/15/2017 PSA 0.6 07/30/2016: PSA: 0.4 01/16/2016: PSA: 0.3 07/12/2015: PSA: 0.3 01/03/2015: PSA: 0.29 09/13/2014: salvage IMRT complete 07/08/2014: PSA: 0.27 06/14/2014: PSA: 0.29 02/17/2014: PSA: 0.20 08/21/2013: PSA: 0.15 02/05/2008: PSA: 0.1 01/15/2008: PSA: 0.12 12/02/2007: RALP Gl 7, neg margins 06/10/2007: PSA: 6.3 (PROSCAR) Patient Entered Questionnaires: INTERNATIONAL PROSTATE SYMPTOM SCORE (I-PSS) 1)INCOMPLETE EMPTYING Over the past month, how often have you had a sensation of not emptying your bladder completely after you finished urinating? SCORE: 0- Not at all 2)FREQUENCY Over the past month, how often have you had to urinate again less than two hours after you finished urinating? SCORE: 1- Less than 1 time in 5 3)INTERMITTENCY Over the past month, how often have you found you stopped and started again several times when you urinated? SCORE: 0- Not at all 4)URGENCY Over the past month, how often have you found it difficult to postpone urination? SCORE: 0- Not at all 5)WEAK STREAM Over the past month, how often have you had a weak stream? SCORE: 1- Less than 1 time in 5 6)STRAINING Over the past month, how often have you had to push or strain to begin urination SCORE: 1- Less than 1 time in 5 7)NOCTURIA Over the past month, how many times did you most typically get up to urinate from the time you went to bed at night until the time you get up in the morning? SCORE:4 TOTAL I-PSS SCORE: 7 QUALITY OF LIFE DUE TO URINARY SYMPTOMS If you were to spend the rest of yur life with your urinary condition just the way it is now, how would you feel about that? 4- Mostly dissatisfied PROMIS Global Health Percentiles provide an indication of how the patient's score ranks in relation to the general population. Higher percentile rankings indicate better function/quality of life. 50th percentile is the average of the general population and indicates half of respondents had a worse score. HISTORY: PAST MEDICAL HISTORY Diagnosis Date Arthritis Elevated PSA GERD (gastroesophageal reflux disease) Melanoma (HCC) Prostate cancer (HCC) PAST SURGICAL HISTORY Procedure Laterality Date LAPS PROSTECT RETROPUBIC RAD W/NRV SPARING ROBOT MELANOMA OF SKIN EXCISION SYN RPT PAST SURGICAL HISTORY OF removal of skin cancer from nose TOTAL HIP REPLACEMENT 09/04/2022 Social History Tobacco Use Smoking status: Never Smokeless tobacco: Never Vaping Use Vaping status: Never Used Substance Use Topics Alcohol use: Ye (more content not included)... [facility] 08-08-2024 Nurse Note Discharge instructions reviewed with patient at this time. This included medications and pharmacy, weight restrictions and follow-up appointments. Patient verbalized understanding at this time. Peripheral line removed from right arm no signs or symptoms of bleeding at this time. Patient packed personal belongings himself and exited unit via wheelchair with transport. [facility] 08-08-2024 Nurse Note Discharge instructions reviewed with patient at this time. This included medications and pharmacy, weight restrictions and follow-up appointments. Patient verbalized understanding at this time. Peripheral line removed from right arm no signs or symptoms of bleeding at this time. Patient packed personal belongings himself and exited unit via wheelchair with transport. 1630 received report from Janine Velasquez RN for lunch coverage; agree with RN previous assessment; she called report to the floor; patient stable, pain tolerable, resting comfortably, placed in transport, will monitor until out of PACU. 1653 pacu phase I care complete patient transported from PACU to T9 documented in this encounter [facility] Work Phone: 08-08-2024 History of Present illness Narrative Transitional Care Coordination Progress Note: Per MD Woo, patient to discharge home today, does not require IV antibiotics. Per pt will discharge on On t PO TMP-SMX 2DS BID and PO Flagyl 500 mg Q8H. Will require six weeks of antimicrobial therapy. EOT will be 09/16/2024.. IMM provided to patient. Willow Franklin RN, BSN Transitional Shipping Weigher Office: [phone] Secure chat via [employer] See Paris is a 79 y.o. male on day 1 of admission presenting with Fracture of unspecified part of body of left mandible, initial encounter for closed fracture (Multi). Transitional Care Coordination Progress Note: Patient discussed during interdisciplinary rounds. Plan per Medical/Surgical team: Pt needs: TBD 08/07: Pt may need IV ATB at DC. Waiting for ID recs. Discharge disposition: TBD Potential Barriers: None ADOD: 08/07 This TCC will continue to follow for home going needs and safe DC plan. MEL VARNER See Paris is a 79 y.o. male on day 1 of admission presenting with Fracture of unspecified part of body of left mandible, initial encounter for closed fracture (Multi). Subjective Interval History: - NAEO. - Labs look unremarkable. - Wound culture is growing staph epi and mixed gram positive bacteria. - Saw him in the room and denied any new complaints. - Patient reports he is constipated. - Had cream of wheat in the morning for breakfast and tolerated it well without any tenderness in the jaw. Objective Range of Vitals (last 24 hours) Heart Rate: [54-60] Temp: [36.3 C (97.3 F)-36.8 C (98.2 F)] Resp: [16-18] BP: (131-156)/(60-80) SpO2: [92 %-95 %] Daily Weight 08/06/24 : 87.2 kg (192 lb 3.2 oz) Body mass index is 27.58 kg/m . Physical Exam General: Patient is laying in bed, in no acute distress. HEENT: R sided mandibular area stitches noted without a drain this time. Intra-oral sutures are also noted. CVS: S1/S2 audible, no M/G/R. Resp: Breathing comfortably on RA. Normal vesicular breathing. No wheezing, crackles or rhonchi auscultated. Abd: Non distended, non tender, no organomegaly was appreciated. 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 No gross focal deficits appreciated. Skin: No rashes or wounds seen Antibiotics ampicillin-sulbactam - 3 gram/100 mL Relevant Results Labs Results from last 72 hours Lab Units 08/06/24 0536 WBC AUTO x10*3/uL 11.0 HEMOGLOBIN g/dL 12.3* HEMATOCRIT % 40.1* PLATELETS AUTO x10*3/uL 146* Results from last 72 hours Lab Units 08/06/24 0536 SODIUM mmol/L 137 POTASSIUM mmol/L 4.1 CHLORIDE mmol/L 106 CO2 mmol/L 23 BUN mg/dL 20 CREATININE mg/dL 0.90 GLUCOSE mg/dL 112* CALCIUM mg/dL 8.9 ANION GAP mmol/L 12 EGFR mL/min/1.73m*2 87 Estimated Creatinine Clearance: 68.7 mL/min (by C-G formula based on SCr of 0.9 mg/dL). No results found for: CRP Microbiology Susceptibility data from last 14 days. Collected Specimen Info Organism 08/05/24 Swab from SOFT TISSUE BIOPSY Staphylococcus epidermidis Mixed Gram-Positive Bacteria Imaging CT maxillofacial bones WO IV Contrast: 08/03: FINDINGS: Orbits: The bony orbits are intact. The orbital contents are unremarkable. Facial Bones: Comminuted, displaced and overriding fracture of the mandibular body on the right adjacent to the mental foramen. The fracture line extends through both the lingual and buccal cortices as well as into the distal aspect of the alveolar canal. Fracture line passes between the inferior right canine and lateral incisor teeth. The remainder of the mandible is intact. Mandible/Temporomandibular Joints: Visualized portions of mandible and bilateral temporomandibular joints are intact and in normal alignment. Paranasal Sinuses/Mastoids: Visualized paranasal sinuses and mastoids are clear. Soft tissues: Within the subcutaneous tissue superficial to the fracture site there is a small hematoma measuring up to 3.0 x 0.7 cm (series 202, image 148) and scattered air foci. Several prominent, subcentimeter submandibular lymph nodes are present, likely reactive in etiology. IMPRESSION: Comminuted, displaced and overriding fracture of the mandibular body on the right with extension into the distal alveolar canal, fracture line passing between the inferior right canine and lateral incisor teeth. No associated temporomandibular joint malalignment. Subcutaneous hematoma overlying the fracture site as detailed above. Microbiology: 08/05: Tissue/Wound Cx: Staph epidermidis, and rare mixed gram positive bacteria. 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 He was initially evaluated at [facility] ED, where a left maxillary sinus fracture was noted. 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 A CT maxillofacial scan on 08/04 showed a comminuted, displaced, and overriding fracture of the right mandibular body with extension into the distal alveolar canal, with the fracture line passing between the inferior right canine and lateral incisor. On 08/05/2024, the patient underwent ORIF of the right mandibular parasymphysis, extraction of teeth 26 and 27, and a fistulectomy. Intraoperative findings included a right parasymphysis mandibular fracture, intraoral soft tissue lesion, orocutaneous fistula, and evidence of mandibular osteomyelitis, with an intraoral sequestrum noted, confirming OM. A FLORENTIN drain was placed, and intraoperative cultures were obtained. Drain was removed on 08/07. Given the presence of osteomyelitis, the patient will require 6-8 weeks of antimicrobial therapy. OR cultures are growing 4+ stph epi and 1+ rare gram positive diane. Will recommend to start TMP-SMX on discharge in case staph epi is MRSE. And flagyl for possible anaerobes. Duration will be 6 weeks. Clinical Impression: R Mandibular fracture, fracture left maxillary sinus, OM of R Mandible Recommendations: Continue IV Unasyn 3G Q6H which should cover oral stacey while inpatient. On discharge start TMP-SMX 2DS BID and PO Flagyl 500 mg Q8H. Will require six weeks of antimicrobial therapy. EOT will be 09/16/2024. No ID follow up is needed. Can follow up PRN. Plan was discussed with ID attending Dr Celeste. We will sign off. Please feel free to reach out to us for further questions. Wilda Rust MD PGY5, ID Fellow. For new consults, contact pager [phone]. [email or web address] chat preferred. Wilda Rust MD Cosigned by Keith Celeste MD at 08/08/2024 8:47 AM EDT 08/06/24 1230 Discharge Planning Living Arrangements Spouse/significant other Support Systems Spouse/significant other Assistance Needed None Type of Residence Private residence Home or Post Acute Services None Expected Discharge Disposition Home Does the patient need discharge transport arranged? Yes RoundTrip coordination needed? Yes Has discharge transport been arranged? No Financial Resource Strain How hard is it for you to pay for the very basics like food, housing, medical care, and heating? Not very Housing Stability In the last 12 months, was there a time when you were not able to pay the mortgage or rent on time? N Transportation Needs In the past 12 months, has lack of transportation kept you from medical appointments or from getting medications? no DC Planning: Went in and met with the pt, confirmed demographics. Transitional Care Coordination Progress Note: Patient discussed during interdisciplinary rounds. Plan per Medical/Surgical team: No home going needs anticipated for this pt at this time. Discharge disposition: Home. No home going needs anticipated for this pt at this time. Potential Barriers: None ADOD: 08/07 This TCC will continue to follow for home going needs and safe DC plan. Mel Negrete RN. TCC. Pharmacy Medication History Review See Paris is a 79 y.o. male admitted for Fracture of unspecified part of body of left mandible, initial encounter for closed fracture (Multi). Pharmacy reviewed the patient's [id number] medications and allergies for accuracy. The list below reflects the updated PUBLIC HEALTH ENGINEER list. Prior to Admission Medications Prescriptions Last Dose Informant amLODIPine (Norvasc) 2.5 mg tablet 08/05/2024 Morning Self Sig: Take 1 tablet (2.5 mg) by mouth once daily. calcium carbonate 600 mg calcium (1,500 mg) tablet 08/04/2024 Morning Self Sig: Take 1 tablet (1,500 mg) by mouth once daily. doxazosin (Cardura) 2 mg tablet 08/05/2024 Morning Self Sig: Take 1 tablet (2 mg) by mouth once daily. eye vitamin supplement (Ocuvite Eye Health Formula) capsule Past Week Self Sig: Take 1 capsule by mouth once daily. omeprazole (PriLOSEC) [address] capsule 08/05/2024 Morning Self Sig: Take 1 capsule (20 mg) by mouth once daily in the morning. Take before meals. rivaroxaban (Xarelto) 20 mg tablet Past Week Self Sig: Take 1 tablet (20 mg) by mouth once daily in the evening. Take with meals. Facility-Administered Medications: None The list below reflects the updated allergy list. Please review each documented allergy for additional clarification and justification. Allergies Reviewed by Shanta Patrick PharmD on 08/06/2024 Severity Reactions Comments Oxycodone High Nausea Only, Nausea/vomiting Other Reaction(s): dizziness, headache Hydrocodone Not Specified Nausea/vomiting Other Reaction(s): Other Hydrocodone-acetaminophen Not Specified Dizziness, Nausea/vomiting Ofloxacin Not Specified Dizziness, Nausea/vomiting Oxycodone-acetaminophen Not Specified Dizziness, Nausea/vomiting Morphine Low Dizziness, Nausea Only Patient declines M2B at discharge. 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 Patient is a good historian, he recalls most medications taking from memory. When prompted with drug names/ indication for remainder pt is able to identify if taking or not. Medications ADDED: none Medications CHANGED: Amlodipine from 2 tablets daily to 1 tablet daily Medications REMOVED: none Shanta Patrick PharmD Transitions of Care Pharmacist [facility] Please reach out via Secure Chat for questions, or if no response call [employer] or [employer] See Paris is a 79 y.o. male HOD 2 POD 1 s/p ORIF or right mandibular parasymphysis fracture, extraction #26,27 and fistulectomy. Subjective NAEON. Patient states that he was able to sleep well at night. Denies any significant pain but states that he had slight nausea yesterday but no vomiting. Denies any difficulty breathing or swallowing. States that he was able to urinate and endorses flatus but denies any bowel movements. Only PO intake per patient was water. Objective Physical Exam Constitutional: Comments: Patient resting comfortably in bed. Kerlix wrap in place. FLORENTIN drain in place. HENT: Head: Comments: Kerlix in place. FLORENTIN drain in place, holding suction and draining serosanguinous fluid (output <25 ml). CN V and VII intact and equal b/l. Nose: Nose normal. Mouth/Throat: Mouth: Mucous membranes are moist. Comments: Intraoral sutures in place. Site oozing but hemostatic. Occlusion reproducible and stable. FOM soft and non-elevated. Eyes: Conjunctiva/sclera: Conjunctivae normal. Cardiovascular: Comments: Warm and well perfused. Pulmonary: Comments: Patient breathing comfortably on room air. Skin: General: Skin is warm. Comments: Right neck incision CDI. FLORENTIN drain in place. Neurological: Mental Status: He is alert and oriented to person, place, and time. Last Recorded Vitals Blood pressure 137/66, pulse 63, temperature 36.6 C (97.9 F), resp. rate 12, height 1.778 m (5' 10), weight 87.2 kg (192 lb 3.2 oz), SpO2 94%. Intake/Output last 3 Shifts: I/O last 3 completed shifts: In: 900 (10.3 mL/kg) [I.V.:900 (10.3 mL/kg)] Out: 10 (0.1 mL/kg) [Drains:10] Weight: 87.6 kg Relevant Results Results for orders placed or performed during the hospital encounter of 08/05/24 (from the past 24 hours) Tissue/Wound Culture/Smear Specimen: SOFT TISSUE BIOPSY; Swab Result Value Ref Range Gram Stain (1+) Rare Polymorphonuclear leukocytes (A) Gram Stain (2+) Few Gram positive cocci (A) Assessment/Plan Assessment & Plan Fracture of unspecified part of body of left mandible, initial encounter for closed fracture (Multi) Patient is a 79 y/o male HOD 2 ,POD 1 s/p ORIF right mandibular para symphysis, extraction of teeth #26 and 27 and fistulectomy. Kerlex headwrap removed bedside this AM. Planning on removing FLORENTIN drain later today. Consulted ID on further abx course post discharge - appreciate recs. Plan: Neuro: - Tylenol 650mg q6h scheduled - Ibuprofen 600 mg q8hr scheduled - Tramadol 50mg q8h PRN moderate/severe pain OMFS: - Elevate head of bed 30 degrees - Strictly monitor drain output - Peridex mouth rinse TID - Suction bedside CV: - Nasal cannula 2L to maintain sats >92% - Supplemental O2 must be humidified GI: - Soft diet as tolerated - Zofran PRN Endo: -BMP/CBC order DVT ppx: - Lovenox 40mg subcutaneous - SCD s - Encourage OOB to chair and [place] [phone] with any issues/concerns. Lizz Chaidez DDS OMFS PGY-1 Cosigned by Jimmy Kulkarni DDS at 08/06/2024 7:10 AM EDT documented in this encounter [facility] Work Phone: 08-08-2024 Plan of care note Problem: Pain - Adult Goal: Verbalizes/displays adequate comfort level or baseline comfort level Outcome: Met Problem: Safety - Adult Goal: Free from fall injury Outcome: Met Problem: Discharge Planning Goal: Discharge to home or other facility with appropriate resources Outcome: Met Problem: Chronic Conditions and Co-morbidities Goal: Patient's chronic conditions and co-morbidity symptoms are monitored and maintained or improved Outcome: Met Problem: Nutrition Goal: Nutrient intake appropriate for maintaining nutritional needs Outcome: Met The patient's goals for the shift include The clinical goals for the shift include Patient will remain safe throughout shift. Over the shift, the patient did make progress toward the following goals. [facility] Work Phone: 08-08-2024 Miscellaneous Notes Problem: Pain - Adult Goal: Verbalizes/displays adequate comfort level or baseline comfort level Outcome: Met Problem: Safety - Adult Goal: Free from fall injury Outcome: Met Problem: Discharge Planning Goal: Discharge to home or other facility with appropriate resources Outcome: Met Problem: Chronic Conditions and Co-morbidities Goal: Patient's chronic conditions and co-morbidity symptoms are monitored and maintained or improved Outcome: Met Problem: Nutrition Goal: Nutrient intake appropriate for maintaining nutritional needs Outcome: Met The patient's goals for the shift include The clinical goals for the shift include Patient will remain safe throughout shift. Over the shift, the patient did make progress toward the following goals. Problem: Pain - Adult Goal: Verbalizes/displays adequate comfort level or baseline comfort level Outcome: Progressing Problem: Safety - Adult Goal: Free from fall injury Outcome: Progressing The patient's goals for the shift include Pain control The clinical goals for the shift include Pt pain will controlled during shift The patient's goals for the shift include pain control during shift. Problem: Pain - Adult Goal: Verbalizes/displays adequate comfort level or baseline comfort level Outcome: Progressing Problem: Safety - Adult Goal: Free from fall injury Outcome: Progressing Problem: Discharge Planning Goal: Discharge to home or other facility with appropriate resources Outcome: Progressing Problem: Chronic Conditions and Co-morbidities Goal: Patient's chronic conditions and co-morbidity symptoms are monitored and maintained or improved Outcome: Progressing Problem: Nutrition Goal: Nutrient intake appropriate for maintaining nutritional needs Outcome: Progressing The patient's goals for the shift include The clinical goals for the shift include patients pain will be controlled Problem: Pain - Adult Goal: Verbalizes/displays adequate comfort level or baseline comfort level Outcome: Progressing Problem: Safety - Adult Goal: Free from fall injury Outcome: Progressing Problem: Discharge Planning Goal: Discharge to home or other facility with appropriate resources Outcome: Progressing Problem: Chronic Conditions and Co-morbidities Goal: Patient's chronic conditions and co-morbidity symptoms are monitored and maintained or improved Outcome: Progressing Problem: Nutrition Goal: Nutrient intake appropriate for maintaining nutritional needs Outcome: Progressing Problem: Pain - Adult Goal: Verbalizes/displays adequate comfort level or baseline comfort level Outcome: Progressing Problem: Safety - Adult Goal: Free from fall injury Outcome: Progressing Problem: Discharge Planning Goal: Discharge to home or other facility with appropriate resources Outcome: Progressing Problem: Chronic Conditions and Co-morbidities Goal: Patient's chronic conditions and co-morbidity symptoms are monitored and maintained or improved Outcome: Progressing Problem: Nutrition Goal: Nutrient intake appropriate for maintaining nutritional needs Outcome: Progressing Patient is a 79 y/o male HOD 0 ,POD 0 s/p ORIF right mandibular parasymphysis, extraction #26,27 and fistulectomy. Patient reports some post operative nausea but denies episodes of vomiting. He denies ambulation, PO intake yet. Denies urination or bowel movements. Patient denies any difficulty breathing, trouble swallowing or managing secretions. Review of Systems HENT: Positive for facial swelling. Negative for dental problem, sinus pressure, sore throat and trouble swallowing. Respiratory: Negative for shortness of breath. Physical Exam Constitutional: Comments: Patient resting comfortably in bed. Kerlix wrap in place. FLORENTIN drain in place. HENT: Head: Comments: Kerlix in place. FLORENTIN drain in place, holding pre assure and draining serosanguinous fluid. CNV3 intact and equal b/l. Slight right marginal mandibular weakness. Mild swelling appreciates submandibularly. Nose: Nose normal. Mouth/Throat: Mouth: Mucous membranes are moist. Comments: Intraoral sutures in place. Site oozing but hemostatic. Occlusion reproducible and stable (left posterior slightly edge to edge). FOM soft. Eyes: Conjunctiva/sclera: Conjunctivae normal. Cardiovascular: Comments: Warm and well perfused. Pulmonary: Comments: Patient breathing comfortably on room air. Skin: General: Skin is warm. Comments: Right neck incision CDI. FLORENTIN drain in place. Neurological: Mental Status: He is alert and oriented to person, place, and time. Assessment and Plan: Patient is a 79 y/o male HOD 0 ,POD 0 s/p ORIF right mandibular para symphysis and fistulectomy. Plan: Neuro: - Tylenol 650mg q6h scheduled - Ibuprofen 600 mg q8hr scheduled - Tramadol 50mg q8h PRN moderate/severe pain OMFS: - Elevate head of bed 30 degrees - Strictly monitor drain output - Peridex mouth rinse TID - Panorex once (08/05) CV: - Nasal cannula 2L to maintain sats >92% - Supplemental O2 must be humidified GI: - Full liquid diet - Zofran PRN Endo: -BMP/CBC order DVT ppx: - Lovenox 40mg subcutaneous - SCD s - Encourage OOB to chair [place] [phone] with any issues/concerns. If any issue with contacting via pager, please contact Balta Woo via [employer]. 2nd call to contact via [employer] is Rosales Flowers 3rd call via [employer] is Wilfredo Woo DMD OMFS PGY-1 The patient's goals for the shift include The clinical goals for the shift include patients pain will be controlled Problem: Pain - Adult Goal: Verbalizes/displays adequate comfort level or baseline comfort level Outcome: Progressing Problem: Safety - Adult Goal: Free from fall injury Outcome: Progressing Problem: Discharge Planning Goal: Discharge to home or other facility with appropriate resources Outcome: Progressing Problem: Chronic Conditions and Co-morbidities Goal: Patient's chronic conditions and co-morbidity symptoms are monitored and maintained or improved Outcome: Progressing Problem: Nutrition Goal: Nutrient intake appropriate for maintaining nutritional needs Outcome: Progressing FRACTURE, MANDIBLE, REMOVAL OF BONE AND PLACEMENT OF RECONSTRUCTION PLATE (L), EXCISION, FACIAL BONE (R), INSERTION, IMPLANT, MANDIBLE (R) Operative Note Date: 08/05/2024 OR Location: [facility] OR Name: See Paris, : 1945, Age: 79 y.o., , Sex: male Diagnosis Pre-op Diagnosis * Fracture of unspecified part of body of left mandible, initial encounter for closed fracture (Multi) [S02.602A] Post-op Diagnosis * Fracture of unspecified part of body of left mandible, initial encounter for closed fracture (Multi) [S02.602A] Procedures EXCISION, FACIAL BONE - [place] EXCISION BONE MANDIBLE INSERTION, IMPLANT, MANDIBLE 92824 - [place] NSTJ MNDBL XTRORAL W/TRANSOSTEAL BONE PLATE 80610 - EXCISION OF NECK SOFT TISSUE LESION, 2cm 71516 - REPAIR OF SOFT TISSUE DEFECT OF NECK, 2cm Surgeons * Jimmy Kulkarni - Primary Resident/Fellow/Other Amusement Machine Mechanic: Surgeons and Role: * Rosales Flowers MD, DDS - Resident - Assisting Staff: Laundry Laborer: Nicola Edgeub Person: Yolanda Edgeub Person: Ludivina Rice Scrub: Maya Relief Laundry Laborer: Elizabeth Anesthesia Staff: Anesthesiologist: Darnell Dueñas DO; Rosmery Myers MD BUSINESS CONTINUITY ANALYST: KAITY iKm Frontline Breaker: KAITY Chery Procedure Summary Anesthesia: General ASA: III Estimated Blood Loss: 50mL Intra-op Medications: Administrations occurring from 0940 to 1240 on 08/05/24: Medication Name Total Dose lidocaine-epinephrine (Xylocaine W/EPI) 1 %-1:100,000 injection 5 mL sodium chloride 0.9 % irrigation solution 1,000 mL albumin human 5 % 250 mL ampicillin-sulbactam (Unasyn) 3 g 3 g dexAMETHasone (Decadron) injection 4 mg/mL 8 mg fentaNYL (Sublimaze) injection 50 mcg/mL 50 mcg glycopyrrolate (Robinul) injection 0.4 mg lactated Ringer's infusion Cannot be calculated lidocaine (cardiac) injection 2% prefilled syringe 100 mg oxymetazoline (Afrin) nasal spray 0.05 % 4 spray phenylephrine 40 mcg/mL syringe 10 mL 400 mcg propofol (Diprivan) injection 10 mg/mL 200 mg remifentanil (Ultiva) 1,000 mcg in sodium chloride 0.9% 50 mL (20 mcg/mL) infusion 0.73 mg succinylcholine (Anectine) 20 mg/mL injection 160 mg Anesthesia Record Intraprocedure I/O Totals Intake Remifentanil Drip 0.00 mL The total shown is the total volume documented since Anesthesia Start was filed. Total Intake 0 mL Specimen: ID Type Source Tests Collected by Time 1 : RIGHT MANDIBULAR BONE Tissue BONE RESECTION SURGICAL PATHOLOGY EXAM Jimmy Kulkarni DDS 08/05/2024 1215 2 : REACTIVE MUCOSAL LESION Tissue SOFT TISSUE RESECTION SURGICAL PATHOLOGY EXAM Jimmy Kulkarni DDS 08/05/2024 1219 3 : RIGHT SUBMENTAL FISTULA Tissue SOFT TISSUE RESECTION SURGICAL PATHOLOGY EXAM Jimmy Kulkarni DDS 08/05/2024 1301 A : SUBMENTAL DRAINAGE Swab SOFT TISSUE BIOPSY FUNGAL CULTURE/SMEAR, TISSUE/WOUND CULTURE/SMEAR Jimmy Kulkarni DDS 08/05/2024 1128 Drains and/or Catheters: Closed/Suction Drain Right;Anterior Neck (Active) Tourniquet Times: Implants: Implants Type Name Action Serial No. Screw SCREW, MMF, 2.0MM X 12MM, 8MM THR, SS - [id number] Implanted Screw SCREW, MMF, 2.0MM X 16MM, 12MM THR, SS - [id number] Implanted Screw PLATE, THREADLOCK 3.0 6H STRAIGHT W/BAR TS MELANIE RECON - [id number] Implanted KLS SCREWS - [id number] Implanted KLS SCREWS Implanted KLS SCREWS Implanted KLS SCREWS Implanted Findings: Right parasymphesis mandible fracture, intraoral soft tissue lesion, orocutaneous fistula, mandibular osteomyelitis Indications: See Paris is an 79 y.o. male who is having surgery for Fracture of Unspecified part of Body of Left Mandible, initial encounter for closed fracture [S02.602XA]. 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 The patient was seen in the preoperative area. The risks, benefits, complications, treatment options, non-operative alternatives, expected recovery and outcomes were discussed with the patient. The possibilities of reaction to medication, pulmonary aspiration, injury to surrounding structures, bleeding, recurrent infection, the need for additional procedures, failure to diagnose a condition, and creating a complication requiring transfusion or operation were discussed with the patient. The patient concurred with the proposed plan, giving informed consent. The site of surgery was properly noted/marked if necessary per policy. The patient has been actively warmed in preoperative area. Preoperative antibiotics have been ordered and given within 1 hours of incision. Venous thrombosis prophylaxis have been ordered including bilateral sequential compression devices and chemical prophylaxis Procedure Details: The patient was greeted in the pre-op holding area, where all preoperative risks and complications were reviewed. Later, the patient was brought into the operating room by the anesthesia staff and was placed in the supine position. A time out was performed to confirmed patient's identity and the procedure to be performed. The patient was then induced for general anesthesia and intubated with a nasal endotracheal tube. Following intubation, the nasal endotracheal tube was secured by the safety technician team. The patient was prepped and draped in standard safety technician fashion. A throat pack was placed. Approx. 5cc 1% lidocaine with 1:100K epi was administered via subcutaneous infiltration at the planned intraoral incision sites. A preincision pause was performed. IMF screws were placed, 3 in maxilla and 4 in mandible. Attention was then turned to the right neck. A 15 blade was used to create a skin incision through fat, and blunt dissection was performed to the level of the platysma. The plastysma was elevated with a mosquito, nerve tested, and divided with sharp incision. The dissection continued through the neck layer by layer with blunt undermining, nerve testing, and sharp incision down to the level of the submandibular gland. The muscular sling of the mandible was divided with bovie down to bone and a periosteal elevator was used to dissect down to inferior border of mandible, and elevated a full thickness flap exposing the line of fracture and the adjacent mandible. Fracture site of the right parasymphesis mandible was exposed, fully visualized and noted to be minimally displaced. Of note there was a sequestrum of bone on the inferior lingual side and the entire fracture segment had fibrous tissue between the 2 segments. A kls reconstruction plate was bent and secured along the inferior border of the mandible with screws. Teeth #26, 27 were extracted as they were mobile with no buccal bony support. IMF was released and the occlusion was found to be stable and reproducible. All remaining IMF screws removed. Intraorally the soft tissue lesion overlying sites #27 was excised with sharp incision and sent as a specimen. Extraorally the orocutaneous fistula was marked with a marking pen and sharp incision was performed followed by dissection along the fistula tract and excision. The extraoral fistula was sent as a second specimen. 3-0 vicryl used to reapproximate the periosteum and muscle over the plate. The fascia of the submandibular gland was closed with 3-0 vicryl. A 10 divehi flat FLORENTIN drain was placed and secured with a 2-0 prolene suture. The platysma was closed with a running 3-0 vicryl suture. The dermal layer was closed with interrupted 3-0 vicryl sutures and the skin was closed with 5-0 fast running suture. The wound was dressed with bacitracin. Intraoral closure was also performed with 3-0 Vicryl suture horizontal mattresses to close the extraction sites and area of the soft tissue excision. The oral cavity was suctioned and throat pack removed. Care of the patient was then transferred over to the anesthesia team. The patient was emerged from anesthesia, extubated and was taken to PACU in stable condition. Dr. Kulkarni was present for all critical portions of the case. Complications: None; patient tolerated the procedure well. Disposition: PACU - hemodynamically stable. Condition: stable Additional Details: NA Attending Attestation: Jimmy Kulkarni Cosigned by Jimmy Kulkarni DDS at 08/06/2024 9:50 AM EDT Associated attestation - Jimmy Kulkarni DDS - 08/06/2024 9:50 AM EDT I was present during all critical and rapp portions of the procedure(s) and immediately available to furnish services the entire duration. See resident note for details. documented in this encounter [facility] Work Phone: 08-07-2024 Plan of care note Problem: Pain - Adult Goal: Verbalizes/displays adequate comfort level or baseline comfort level Outcome: Progressing Problem: Safety - Adult Goal: Free from fall injury Outcome: Progressing The patient's goals for the shift include Pain control The clinical goals for the shift include Pt pain will controlled during shift [facility] 08-07-2024 Plan of care note The patient's goals for the shift include pain control during shift. Problem: Pain - Adult Goal: Verbalizes/displays adequate comfort level or baseline comfort level Outcome: Progressing Problem: Safety - Adult Goal: Free from fall injury Outcome: Progressing Problem: Discharge Planning Goal: Discharge to home or other facility with appropriate resources Outcome: Progressing Problem: Chronic Conditions and Co-morbidities Goal: Patient's chronic conditions and co-morbidity symptoms are monitored and maintained or improved Outcome: Progressing Problem: Nutrition Goal: Nutrient intake appropriate for maintaining nutritional needs Outcome: Progressing [facility] 08-06-2024 Plan of care note The patient's goals for the shift include The clinical goals for the shift include patients pain will be controlled Problem: Pain - Adult Goal: Verbalizes/displays adequate comfort level or baseline comfort level Outcome: Progressing Problem: Safety - Adult Goal: Free from fall injury Outcome: Progressing Problem: Discharge Planning Goal: Discharge to home or other facility with appropriate resources Outcome: Progressing Problem: Chronic Conditions and Co-morbidities Goal: Patient's chronic conditions and co-morbidity symptoms are monitored and maintained or improved Outcome: Progressing Problem: Nutrition Goal: Nutrient intake appropriate for maintaining nutritional needs Outcome: Progressing [facility] 08-06-2024 Plan of care note Problem: Pain - Adult Goal: Verbalizes/displays adequate comfort level or baseline comfort level Outcome: Progressing Problem: Safety - Adult Goal: Free from fall injury Outcome: Progressing Problem: Discharge Planning Goal: Discharge to home or other facility with appropriate resources Outcome: Progressing Problem: Chronic Conditions and Co-morbidities Goal: Patient's chronic conditions and co-morbidity symptoms are monitored and maintained or improved Outcome: Progressing Problem: Nutrition Goal: Nutrient intake appropriate for maintaining nutritional needs Outcome: Progressing [facility] 08-06-2024 Consult note Associated Order (s): Inpatient consult to Infectious Diseases Inpatient consult to Infectious Diseases Consult performed by: Wilda Rust MD Consult ordered by: Jimmy Kulkarni DDS Primary MD: Jermaine Church DO Reason For Consult: Recommendations for antibiotics post-surgery, 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 His injury occurred on 06/14/2024 after slipping on ice and falling forward, sustaining a dental injury along with neck and left-sided jaw pain. He initially presented to [facility] ED on 06/14, where a CT of the sinuses showed a left maxillary sinus fracture. He was advised to follow up with oral surgery and was prescribed Tylenol and icing for pain. The patient reports that his fracture subsequently became infected with white color drainage, leading to multiple courses of antibiotics. He was initially prescribed amoxicillin for seven days by an ENT provider, followed by additional amoxicillin prescriptions from a dentist due to ongoing concerns of infection. A review of his medication dispensing history shows prescriptions for amoxicillin 500 mg (8 capsules x 2 days) on 07/05, amoxicillin 875 mg (14 tablets x 7 days) on 07/13, amoxicillin 500 mg (6 days) on 07/21, and amoxicillin 500 mg (7 days). Despite treatment, he continued to experience drainage from a submandibular fistula. On 08/05, the patient presented for an elective procedure for repair of his right mandibular parasymphysis fracture. OMFS evaluation noted a bony step-off at the inferior border of the right mandible, freely mobile mandibular fracture segments, minimal right facial swelling, and a cutaneous fistula in the right submandibular region that drained purulence on palpation. A CT maxillofacial scan on 08/04 showed a comminuted, displaced, and overriding fracture of the right mandibular body with extension into the distal alveolar canal, with the fracture line passing between the inferior right canine and lateral incisor. On 08/05, he underwent ORIF of the right mandibular parasymphysis, extraction of teeth 26 and 27, and a fistulectomy. Intraoperatively, findings included a right parasymphysis mandibular fracture, an intraoral soft tissue lesion, an orocutaneous fistula, and mandibular osteomyelitis (sequestrum of bone on the lingual side) . A FLORENTIN drain was placed, and intraoperative cultures were obtained. ID was consulted for antibiotic recommendations. 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 No allergies No pets Past Medical History He has a past medical history of Arthritis, Hypertension, Prostate cancer (Multi), and Vision loss. Surgical History He has a past surgical history that includes Hip Arthroplasty; Prostate surgery; and Colonoscopy. 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 Allergies Oxycodone, Hydrocodone, Hydrocodone-acetaminophen, Ofloxacin, Oxycodone-acetaminophen, and Morphine Immunization History Administered Date(s) Administered Moderna COVID-19 vaccine, 12 years and older (50mcg/0.5mL)(Spikevax) 02/14/2023, 01/27/2024 Moderna SARS-CoV-2 Vaccination 07/17/2020, 08/10/2020, 03/13/2021 Medications Home medications: Medications Prior to Admission Medication Sig Dispense Refill Last Dose/Taking amLODIPine (Norvasc) 2.5 mg tablet Take 2 mg by mouth once daily. 08/05/2024 Morning calcium carbonate 600 mg calcium (1,500 mg) tablet Take 1 tablet (1,500 mg) by mouth once daily. 08/04/2024 Morning doxazosin (Cardura) 2 mg tablet Take 1 tablet (2 mg) by mouth once daily. 08/05/2024 Morning eye vitamin supplement (Ocuvite Eye Health Formula) capsule Take 1 capsule by mouth once daily. Past Week omeprazole (PriLOSEC) [address] capsule Take 1 capsule (20 mg) by mouth once daily in the morning. Take before meals. 08/05/2024 Morning rivaroxaban (Xarelto) 20 mg tablet Take 1 tablet (20 mg) by mouth once daily in the evening. Take with meals. Past Week Current medications: Scheduled medications acetaminophen, 650 mg, oral, q6h Or acetaminophen, 650 mg, oral, q6h ampicillin-sulbactam, 3 g, intravenous, q6h chlorhexidine, 15 mL, Swish & Spit, BID enoxaparin, 40 mg, subcutaneous, q24h ibuprofen, 600 mg, oral, TID Or ibuprofen, 600 mg, oral, TID Continuous medications lactated Ringer's, 50 mL/hr, Last Rate: 50 mL/hr (08/05/24 1747) PRN medications PRN medications: ondansetron OR ondansetron, traMADol Review of Systems Negative except as HPI Objective Range of Vitals (last 24 hours) Heart Rate: [50-73] Temp: [36 C (96.8 F)-36.7 C (98.1 F)] Resp: [10-16] BP: (121-179)/(47-86) Weight: [87.2 kg (192 lb 3.2 oz)] SpO2: [92 %-98 %] Daily Weight 08/06/24 : 87.2 kg (192 lb 3.2 oz) Body mass index is 27.58 kg/m . Physical Exam General: Patient is laying in bed, in no acute distress. HEENT: R sided mandibular area stitches noted with FLORENTIN drain in place. Intra-oral sutures are also noted. CVS: S1/S2 audible, no M/G/R. Resp: Breathing comfortably on RA. Normal vesicular breathing. No wheezing, crackles or rhonchi auscultated. Abd: Non distended, non tender, no organomegaly was appreciated. 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 No gross focal deficits appreciated. Skin: No rashes or wounds seen. Relevant Results Outside Hospital Results Yes - Labs Results from last 72 hours Lab Units 08/06/24 0536 08/03/24 1501 WBC AUTO x10*3/uL 11.0 8.0 HEMOGLOBIN g/dL 12.3* 14.1 HEMATOCRIT % 40.1* 42.5 PLATELETS AUTO x10*3/uL 146* 151 Results from last 72 hours Lab Units 08/06/24 0536 08/03/24 1501 SODIUM mmol/L 137 138 POTASSIUM mmol/L 4.1 3.8 CHLORIDE mmol/L 106 107 CO2 mmol/L 23 22 BUN mg/dL 20 20 CREATININE mg/dL 0.90 1.09 GLUCOSE mg/dL 112* 123* CALCIUM mg/dL 8.9 9.5 ANION GAP mmol/L 12 13 EGFR mL/min/1.73m*2 87 69 Estimated Creatinine Clearance: 68.7 mL/min (by C-G formula based on SCr of 0.9 mg/dL). No results found for: CRP, SEDRATE No results found for: HIV1X2, HIVCONF, [id number] No results found for: HEPCABINIT, HEPCAB, HCVPCRQUANT Imaging CT maxillofacial bones WO IV Contrast: 3/17: FINDINGS: Orbits: The bony orbits are intact. The orbital contents are unremarkable. Facial Bones: Comminuted, displaced and overriding fracture of the mandibular body on the right adjacent to the mental foramen. The fracture line extends through both the lingual and buccal cortices as well as into the distal aspect of the alveolar canal. Fracture line passes between the inferior right canine and lateral incisor teeth. The remainder of the mandible is intact. Mandible/Temporomandibular Joints: Visualized portions of mandible and bilateral temporomandibular joints are intact and in normal alignment. Paranasal Sinuses/Mastoids: Visualized paranasal sinuses and mastoids are clear. Soft tissues: Within the subcutaneous tissue superficial to the fracture site there is a small hematoma measuring up to 3.0 x 0.7 cm (series 202, image 148) and scattered air foci. Several prominent, subcentimeter submandibular lymph nodes are present, likely reactive in etiology. IMPRESSION: Comminuted, displaced and overriding fracture of the mandibular body on the right with extension into the distal alveolar canal, fracture line passing between the inferior right canine and lateral incisor teeth. No associated temporomandibular joint malalignment. Subcutaneous hematoma overlying the fracture site as detailed above. Microbiology: 08/05: Tissue/Wound Cx: 2+ Few Gram positive cocci on gram stain. 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 He was initially evaluated at [facility] ED, where a left maxillary sinus fracture was noted. 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 A CT maxillofacial scan on 08/04 showed a comminuted, displaced, and overriding fracture of the right mandibular body with extension into the distal alveolar canal, with the fracture line passing between the inferior right canine and lateral incisor. On 08/05/2024, the patient underwent ORIF of the right mandibular parasymphysis, extraction of teeth 26 and 27, and a fistulectomy. Intraoperative findings included a right parasymphysis mandibular fracture, intraoral soft tissue lesion, orocutaneous fistula, and evidence of mandibular osteomyelitis, with an intraoral sequestrum noted, confirming OM. A FLORENTIN drain was placed, and intraoperative cultures were obtained. Given the presence of osteomyelitis, the patient will require 6-8 weeks of antimicrobial therapy. We will follow up on OR culture results to adjust treatment as needed. Clinical Impression: R Mandibular fracture, fracture left maxillary sinus, OM of R Mandible Recommendations: Continue IV Unasyn 3G Q6H which should cover oral stacey. Will follow up on OR cultures. Will require six weeks of antimicrobial therapy. Please obtain blood cultures x2. There is a possibility that we might recommend oral regimen for discharge (Levaquin, flagyl) once we have the culture information, therefore hold off on getting a PICC line. Plan was discussed with ID attending Dr Nick Finley We will continue to follow the patient. Wilda Rust MD PGY5, ID Fellow. For new consults, contact pager [phone]. EPIC chat preferred. Wilda Rust MD Cosigned by Nick Finley MD at 08/06/2024 5:56 PM EDT Associated attestation - Nick Finley MD - 08/06/2024 5:56 PM EDT I saw and evaluated the patient. I personally obtained the rapp and critical portions of the history and physical exam or was physically present for rapp and critical portions performed by the resident/fellow. I reviewed the resident/fellow's documentation and discussed the patient with the resident/fellow. I agree with the resident/fellow's medical decision making as documented in the note. [facility] Work Phone: 08-06-2024 Consult note Associated Order (s): Inpatient consult to Infectious Diseases Inpatient consult to Infectious Diseases Consult performed by: Wilda Rust MD Consult ordered by: Jimmy Kulkarni DDS Primary MD: Jermaine Church DO Reason For Consult: Recommendations for antibiotics post-surgery, 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 His injury occurred on 06/14/2024 after slipping on ice and falling forward, sustaining a dental injury along with neck and left-sided jaw pain. He initially presented to [facility] ED on 06/14, where a CT of the sinuses showed a left maxillary sinus fracture. He was advised to follow up with oral surgery and was prescribed Tylenol and icing for pain. The patient reports that his fracture subsequently became infected with white color drainage, leading to multiple courses of antibiotics. He was initially prescribed amoxicillin for seven days by an ENT provider, followed by additional amoxicillin prescriptions from a dentist due to ongoing concerns of infection. A review of his medication dispensing history shows prescriptions for amoxicillin 500 mg (8 capsules x 2 days) on 07/05, amoxicillin 875 mg (14 tablets x 7 days) on 07/13, amoxicillin 500 mg (6 days) on 07/21, and amoxicillin 500 mg (7 days). Despite treatment, he continued to experience drainage from a submandibular fistula. On 08/05, the patient presented for an elective procedure for repair of his right mandibular parasymphysis fracture. OMFS evaluation noted a bony step-off at the inferior border of the right mandible, freely mobile mandibular fracture segments, minimal right facial swelling, and a cutaneous fistula in the right submandibular region that drained purulence on palpation. A CT maxillofacial scan on 08/04 showed a comminuted, displaced, and overriding fracture of the right mandibular body with extension into the distal alveolar canal, with the fracture line passing between the inferior right canine and lateral incisor. On 08/05, he underwent ORIF of the right mandibular parasymphysis, extraction of teeth 26 and 27, and a fistulectomy. Intraoperatively, findings included a right parasymphysis mandibular fracture, an intraoral soft tissue lesion, an orocutaneous fistula, and mandibular osteomyelitis (sequestrum of bone on the lingual side) . A FLORENTIN drain was placed, and intraoperative cultures were obtained. ID was consulted for antibiotic recommendations. 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 No allergies No pets Past Medical History He has a past medical history of Arthritis, Hypertension, Prostate cancer (Multi), and Vision loss. Surgical History He has a past surgical history that includes Hip Arthroplasty; Prostate surgery; and Colonoscopy. 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 Allergies Oxycodone, Hydrocodone, Hydrocodone-acetaminophen, Ofloxacin, Oxycodone-acetaminophen, and Morphine Immunization History Administered Date(s) Administered Moderna COVID-19 vaccine, 12 years and older (50mcg/0.5mL)(Spikevax) 02/14/2023, 01/27/2024 Moderna SARS-CoV-2 Vaccination 07/17/2020, 08/10/2020, 03/13/2021 Medications Home medications: Medications Prior to Admission Medication Sig Dispense Refill Last Dose/Taking amLODIPine (Norvasc) 2.5 mg tablet Take 2 mg by mouth once daily. 08/05/2024 Morning calcium carbonate 600 mg calcium (1,500 mg) tablet Take 1 tablet (1,500 mg) by mouth once daily. 08/04/2024 Morning doxazosin (Cardura) 2 mg tablet Take 1 tablet (2 mg) by mouth once daily. 08/05/2024 Morning eye vitamin supplement (Ocuvite Eye Health Formula) capsule Take 1 capsule by mouth once daily. Past Week omeprazole (PriLOSEC) [address] capsule Take 1 capsule (20 mg) by mouth once daily in the morning. Take before meals. 08/05/2024 Morning rivaroxaban (Xarelto) 20 mg tablet Take 1 tablet (20 mg) by mouth once daily in the evening. Take with meals. Past Week Current medications: Scheduled medications acetaminophen, 650 mg, oral, q6h Or acetaminophen, 650 mg, oral, q6h ampicillin-sulbactam, 3 g, intravenous, q6h chlorhexidine, 15 mL, Swish & Spit, BID enoxaparin, 40 mg, subcutaneous, q24h ibuprofen, 600 mg, oral, TID Or ibuprofen, 600 mg, oral, TID Continuous medications lactated Ringer's, 50 mL/hr, Last Rate: 50 mL/hr (08/05/24 1747) PRN medications PRN medications: ondansetron OR ondansetron, traMADol Review of Systems Negative except as HPI Objective Range of Vitals (last 24 hours) Heart Rate: [50-73] Temp: [36 C (96.8 F)-36.7 C (98.1 F)] Resp: [10-16] BP: (121-179)/(47-86) Weight: [87.2 kg (192 lb 3.2 oz)] SpO2: [92 %-98 %] Daily Weight 08/06/24 : 87.2 kg (192 lb 3.2 oz) Body mass index is 27.58 kg/m . Physical Exam General: Patient is laying in bed, in no acute distress. HEENT: R sided mandibular area stitches noted with FLORENTIN drain in place. Intra-oral sutures are also noted. CVS: S1/S2 audible, no M/G/R. Resp: Breathing comfortably on RA. Normal vesicular breathing. No wheezing, crackles or rhonchi auscultated. Abd: Non distended, non tender, no organomegaly was appreciated. 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 No gross focal deficits appreciated. Skin: No rashes or wounds seen. Relevant Results Outside Hospital Results Yes - Labs Results from last 72 hours Lab Units 08/06/24 0536 08/03/24 1501 WBC AUTO x10*3/uL 11.0 8.0 HEMOGLOBIN g/dL 12.3* 14.1 HEMATOCRIT % 40.1* 42.5 PLATELETS AUTO x10*3/uL 146* 151 Results from last 72 hours Lab Units 08/06/24 0536 08/03/24 1501 SODIUM mmol/L 137 138 POTASSIUM mmol/L 4.1 3.8 CHLORIDE mmol/L 106 107 CO2 mmol/L 23 22 BUN mg/dL 20 20 CREATININE mg/dL 0.90 1.09 GLUCOSE mg/dL 112* 123* CALCIUM mg/dL 8.9 9.5 ANION GAP mmol/L 12 13 EGFR mL/min/1.73m*2 87 69 Estimated Creatinine Clearance: 68.7 mL/min (by C-G formula based on SCr of 0.9 mg/dL). No results found for: CRP, SEDRATE No results found for: HIV1X2, HIVCONF, [id number] No results found for: HEPCABINIT, HEPCAB, HCVPCRQUANT Imaging CT maxillofacial bones WO IV Contrast: 08/03: FINDINGS: Orbits: The bony orbits are intact. The orbital contents are unremarkable. Facial Bones: Comminuted, displaced and overriding fracture of the mandibular body on the right adjacent to the mental foramen. The fracture line extends through both the lingual and buccal cortices as well as into the distal aspect of the alveolar canal. Fracture line passes between the inferior right canine and lateral incisor teeth. The remainder of the mandible is intact. Mandible/Temporomandibular Joints: Visualized portions of mandible and bilateral temporomandibular joints are intact and in normal alignment. Paranasal Sinuses/Mastoids: Visualized paranasal sinuses and mastoids are clear. Soft tissues: Within the subcutaneous tissue superficial to the fracture site there is a small hematoma measuring up to 3.0 x 0.7 cm (series 202, image 148) and scattered air foci. Several prominent, subcentimeter submandibular lymph nodes are present, likely reactive in etiology. IMPRESSION: Comminuted, displaced and overriding fracture of the mandibular body on the right with extension into the distal alveolar canal, fracture line passing between the inferior right canine and lateral incisor teeth. No associated temporomandibular joint malalignment. Subcutaneous hematoma overlying the fracture site as detailed above. Microbiology: 08/05: Tissue/Wound Cx: 2+ Few Gram positive cocci on gram stain. 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 He was initially evaluated at [facility] ED, where a left maxillary sinus fracture was noted. 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 A CT maxillofacial scan on 08/04 showed a comminuted, displaced, and overriding fracture of the right mandibular body with extension into the distal alveolar canal, with the fracture line passing between the inferior right canine and lateral incisor. On 08/05/2024, the patient underwent ORIF of the right mandibular parasymphysis, extraction of teeth 26 and 27, and a fistulectomy. Intraoperative findings included a right parasymphysis mandibular fracture, intraoral soft tissue lesion, orocutaneous fistula, and evidence of mandibular osteomyelitis, with an intraoral sequestrum noted, confirming OM. A FLORENTIN drain was placed, and intraoperative cultures were obtained. Given the presence of osteomyelitis, the patient will require 6-8 weeks of antimicrobial therapy. We will follow up on OR culture results to adjust treatment as needed. Clinical Impression: R Mandibular fracture, fracture left maxillary sinus, OM of R Mandible Recommendations: Continue IV Unasyn 3G Q6H which should cover oral stacey. Will follow up on OR cultures. Will require six weeks of antimicrobial therapy. Please obtain blood cultures x2. There is a possibility that we might recommend oral regimen for discharge (Levaquin, flagyl) once we have the culture information, therefore hold off on getting a PICC line. Plan was discussed with ID attending Dr Nick Finley We will continue to follow the patient. Wilda Rust MD PGY5, ID Fellow. For new consults, contact pager [phone]. EPIC chat preferred. Wilda Rust MD Cosigned by Nick Finley MD at 08/06/2024 5:56 PM EDT Associated attestation - Nick Finley MD - 08/06/2024 5:56 PM EDT I saw and evaluated the patient. I personally obtained the rapp and critical portions of the history and physical exam or was physically present for rapp and critical portions performed by the resident/fellow. I reviewed the resident/fellow's documentation and discussed the patient with the resident/fellow. I agree with the resident/fellow's medical decision making as documented in the note. documented in this encounter [facility] Work Phone: 08-06-2024 Hospital Discharge instructions Balta Woo DMD - 08/06/2024 6:13 AM EDT OMFS Discharge Instructions: Procedure: ORIF of right parasympheseal fracture, extraction of teeth #26 and 27 + fistulectomy Surgeon: Dr. Jimmy Kulkarni INCISION CARE: - Facial/Neck Incision Care: Cleanse all facial/neck incisions twice daily with baby shampoo or mild soap and water. Apply petroleum jelly/vaseline to incision line twice daily until incision has healed. - Intra-oral Incision Care: To care for your intra-oral incisions, please swish and spit with 15 mLs of peridex solution 3-4 times daily until follow-up. Use swabs to perform oral care. HYGIENE - Do not brush your teeth, rinse your mouth or spit for the first 24 hours - May brush your teeth gently starting on day 2 after surgery - If prescribed Chlorhexidine rinse, gently rinse and spit the medication three times per day. Do not swallow the medication. - You may shower, do not allow direct water stream on your incisions - Do not bath, soak, or shower until directed by your doctor DIET - Do not drink through a straw. - Start first with clear liquids, and then gradually advance to soup, and soft foods. - Avoiding eating foods that are spicy, hot, tough, or crunchy until the surgical sites have healed. MEDICATIONS: Sent [facility] on [address] [place] [address]. - Your new medications: - Ibuprofen (Motrin): Take every 6 hours for the first 5 days - Acetaminophen (Tylenol): Take every 6 hours for the first 7 days -Tramadol 50mg q8hr PO pRN for severe pain only - Chlorhexidine (Peridex): Swish for 60 seconds 2 times daily for the first week, gently spit out, do not swallow - Antibiotics: End (09/16/24): - TMP-SMX 2DS twice a day orally until 09/16/24 - Flagyl 500 mg every 8 hours until 09/16/24 PAIN & ANTIBIOTCS - Pain medication should be taken only during the time that you feel significant discomfort. If the pain is severe, the prescription medication can be used. However, if only mild discomfort is experienced, try to use a less potent, over the counter medication such as Advil (ibuprofen and/or Tylenol (Acetaminophen). These can be taken in crushed tablets or in liquid form. - Antibiotics: If prescribed please take antibiotics at the appropriate interval as described on the bottle. Be sure not to miss any doses and take the medicine until it is gone. FIRST DAY AFTER SURGERY - Hygiene: Return to your normal brushing routine, being very careful around surgery site(s) - Avoid using full-strength over the counter mouthwashes for 2 weeks. - Begin using a chlorhexidine or warm salt-water rinse (1/4 teaspoon salt in a glass of warm water) after meals for the first week. - Pain and swelling is normal and expected, and may last for 10-14 days. Don t be alarmed if the third day is the worst. - Continue eating soft foods. You may begin to gradually return to your normal diet as tolerated. Avoid spicy foods and drinks for 2 weeks. ACTIVITY - Do not lift more than 15 pounds until directed by your doctor - Do not perform intense physical activity until directed by your doctor - Do not drive while taking narcotics - Do not smoke BLEEDING - Change gauze as directed every 20-30 minutes until active bleeding has subsided (usually 2-3 hours). - Make sure to apply good pressure to the gauze by biting down - You may remove gauze to begin drinking, but return fresh gauze to surgery sites if bleeding is still present. - It is normal to experience light bleeding or oozing for up to 24 hours. If there is severe bleeding follow instructions at the bottom of the form under ``Excessive Bleeding PLEASE REPORT ANY OF THE FOLLOWING TO OUR TEAM: - Sudden or excessive bleeding, swelling, or bruising. - Any itching, rash, or adverse reaction to medication. - Fever over 100 degrees Fahrenheit. - Drainage or discharge from the incision sites (other than blood). - Any injury to the face over the next 6 weeks. Follow Up 08/14 at 1PM at our outpatient clinic. The Oral & Maxillofacial Surgery clinic is located on the 1st floor within the [facility] ([address] [place] [address]). Our office phone number is [phone]. For any questions regarding patient care, [place] [phone]. Patients can contact the resident electronics department manager through hospital bevel operator [phone] If you have any questions or concerns please contact us during regular office hours ([phone]). For any emergency or after hours questions do not hesitate to contact the resident electronics department manager. You may call [phone] for the hospital bevel operator and ask for the ``Oral Surgeon Freight Inspector . documented in this encounter [facility] Work Phone: 08-05-2024 civil engineering project manager Note Patient is a 79 y/o male HOD 0 ,POD 0 s/p ORIF right mandibular parasymphysis, extraction #26,27 and fistulectomy. Patient reports some post operative nausea but denies episodes of vomiting. He denies ambulation, PO intake yet. Denies urination or bowel movements. Patient denies any difficulty breathing, trouble swallowing or managing secretions. Review of Systems HENT: Positive for facial swelling. Negative for dental problem, sinus pressure, sore throat and trouble swallowing. Respiratory: Negative for shortness of breath. Physical Exam Constitutional: Comments: Patient resting comfortably in bed. Kerlix wrap in place. FLORENTIN drain in place. HENT: Head: Comments: Kerlix in place. FLORENTIN drain in place, holding pre assure and draining serosanguinous fluid. CNV3 intact and equal b/l. Slight right marginal mandibular weakness. Mild swelling appreciates submandibularly. Nose: Nose normal. Mouth/Throat: Mouth: Mucous membranes are moist. Comments: Intraoral sutures in place. Site oozing but hemostatic. Occlusion reproducible and stable (left posterior slightly edge to edge). FOM soft. Eyes: Conjunctiva/sclera: Conjunctivae normal. Cardiovascular: Comments: Warm and well perfused. Pulmonary: Comments: Patient breathing comfortably on room air. Skin: General: Skin is warm. Comments: Right neck incision CDI. FLORENTIN drain in place. Neurological: Mental Status: He is alert and oriented to person, place, and time. Assessment and Plan: Patient is a 79 y/o male HOD 0 ,POD 0 s/p ORIF right mandibular para symphysis and fistulectomy. Plan: Neuro: - Tylenol 650mg q6h scheduled - Ibuprofen 600 mg q8hr scheduled - Tramadol 50mg q8h PRN moderate/severe pain OMFS: - Elevate head of bed 30 degrees - Strictly monitor drain output - Peridex mouth rinse TID - Panorex once (08/05) CV: - Nasal cannula 2L to maintain sats >92% - Supplemental O2 must be humidified GI: - Full liquid diet - Zofran PRN Endo: -BMP/CBC order DVT ppx: - Lovenox 40mg subcutaneous - SCD s - Encourage OOB to chair and [place] [phone] with any issues/concerns. If any issue with contacting via pager, please contact Balta Woo via [employer]. 2nd call to contact via [employer] is Rosales Flowers 3rd call via [employer] is Wilfredo Woo DMD OMFS PGY-1 [facility] Work Phone: 08-05-2024 Plan of care note The patient's goals for the shift include The clinical goals for the shift include patients pain will be controlled Problem: Pain - Adult Goal: Verbalizes/displays adequate comfort level or baseline comfort level Outcome: Progressing Problem: Safety - Adult Goal: Free from fall injury Outcome: Progressing Problem: Discharge Planning Goal: Discharge to home or other facility with appropriate resources Outcome: Progressing Problem: Chronic Conditions and Co-morbidities Goal: Patient's chronic conditions and co-morbidity symptoms are monitored and maintained or improved Outcome: Progressing Problem: Nutrition Goal: Nutrient intake appropriate for maintaining nutritional needs Outcome: Progressing [facility] Work Phone: 08-05-2024 Nurse Note 1630 received report from Janine Velasquez RN for lunch coverage; agree with RN previous assessment; she called report to the floor; patient stable, pain tolerable, resting comfortably, placed in transport, will monitor until out of PACU. 1653 pacu phase I care complete patient transported from PACU to T9 [facility] 08-05-2024 Surgery Surgical operation note FRACTURE, MANDIBLE, REMOVAL OF BONE AND PLACEMENT OF RECONSTRUCTION PLATE (L), EXCISION, FACIAL BONE (R), INSERTION, IMPLANT, MANDIBLE (R) Operative Note Date: 08/05/2024 OR Location: [facility] OR Name: See Paris, : 1945, Age: 79 y.o., , Sex: male Diagnosis Pre-op Diagnosis * Fracture of unspecified part of body of left mandible, initial encounter for closed fracture (Multi) [S02.602A] Post-op Diagnosis * Fracture of unspecified part of body of left mandible, initial encounter for closed fracture (Multi) [S02.602A] Procedures EXCISION, FACIAL BONE - MN EXCISION BONE MANDIBLE INSERTION, IMPLANT, MANDIBLE - MN NSTJ MNDBL XTRORAL W/TRANSOSTEAL BONE PLATE 77411 - EXCISION OF NECK SOFT TISSUE LESION, 2cm 09709 - REPAIR OF SOFT TISSUE DEFECT OF NECK, 2cm Surgeons * Jimmy Kulkarni - Primary Resident/Fellow/Other Amusement Machine Mechanic: Surgeons and Role: * Rosales Flowers MD, DDS - Resident - Assisting Staff: Laundry Laborer: Nicola Aguilera Person: Yolanda Aguilera Person: Ludivina Rice Scrub: Maya Relief Laundry Laborer: Elizabeth Anesthesia Staff: Anesthesiologist: Darnell Dueñas DO; Rosmery Myers MD BUSINESS CONTINUITY ANALYST: KAITY Kim Frontline Breaker: KAITY Chery Procedure Summary Anesthesia: General ASA: III Estimated Blood Loss: 50mL Intra-op Medications: Administrations occurring from 0940 to 1240 on 08/05/24: Medication Name Total Dose lidocaine-epinephrine (Xylocaine W/EPI) 1 %-1:100,000 injection 5 mL sodium chloride 0.9 % irrigation solution 1,000 mL albumin human 5 % 250 mL ampicillin-sulbactam (Unasyn) 3 g 3 g dexAMETHasone (Decadron) injection 4 mg/mL 8 mg fentaNYL (Sublimaze) injection 50 mcg/mL 50 mcg glycopyrrolate (Robinul) injection 0.4 mg lactated Ringer's infusion Cannot be calculated lidocaine (cardiac) injection 2% prefilled syringe 100 mg oxymetazoline (Afrin) nasal spray 0.05 % 4 spray phenylephrine 40 mcg/mL syringe 10 mL 400 mcg propofol (Diprivan) injection 10 mg/mL 200 mg remifentanil (Ultiva) 1,000 mcg in sodium chloride 0.9% 50 mL (20 mcg/mL) infusion 0.73 mg succinylcholine (Anectine) 20 mg/mL injection 160 mg Anesthesia Record Intraprocedure I/O Totals Intake Remifentanil Drip 0.00 mL The total shown is the total volume documented since Anesthesia Start was filed. Total Intake 0 mL Specimen: ID Type Source Tests Collected by Time 1 : RIGHT MANDIBULAR BONE Tissue BONE RESECTION SURGICAL PATHOLOGY EXAM Jimmy Kulkarni DDS 08/05/2024 1215 2 : REACTIVE MUCOSAL LESION Tissue SOFT TISSUE RESECTION SURGICAL PATHOLOGY EXAM Jimmy Kulkarni DDS 08/05/2024 1219 3 : RIGHT SUBMENTAL FISTULA Tissue SOFT TISSUE RESECTION SURGICAL PATHOLOGY EXAM Jimmy Kulkarni DDS 08/05/2024 1301 A : SUBMENTAL DRAINAGE Swab SOFT TISSUE BIOPSY FUNGAL CULTURE/SMEAR, TISSUE/WOUND CULTURE/SMEAR Jimmy Kulkarni DDS 08/05/2024 1128 Drains and/or Catheters: Closed/Suction Drain Right;Anterior Neck (Active) Tourniquet Times: Implants: Implants Type Name Action Serial No. Screw SCREW, MMF, 2.0MM X 12MM, 8MM THR, SS - [id number] Implanted Screw SCREW, MMF, 2.0MM X 16MM, 12MM THR, SS - [id number] Implanted Screw PLATE, THREADLOCK 3.0 6H STRAIGHT W/BAR TS MELANIE RECON - [id number] Implanted KLS SCREWS - [id number] Implanted KLS SCREWS Implanted KLS SCREWS Implanted KLS SCREWS Implanted Findings: Right parasymphesis mandible fracture, intraoral soft tissue lesion, orocutaneous fistula, mandibular osteomyelitis Indications: See Paris is an 79 y.o. male who is having surgery for Fracture of Unspecified part of Body of Left Mandible, initial encounter for closed fracture [S02.602XA]. 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 The patient was seen in the preoperative area. The risks, benefits, complications, treatment options, non-operative alternatives, expected recovery and outcomes were discussed with the patient. The possibilities of reaction to medication, pulmonary aspiration, injury to surrounding structures, bleeding, recurrent infection, the need for additional procedures, failure to diagnose a condition, and creating a complication requiring transfusion or operation were discussed with the patient. The patient concurred with the proposed plan, giving informed consent. The site of surgery was properly noted/marked if necessary per policy. The patient has been actively warmed in preoperative area. Preoperative antibiotics have been ordered and given within 1 hours of incision. Venous thrombosis prophylaxis have been ordered including bilateral sequential compression devices and chemical prophylaxis Procedure Details: The patient was greeted in the pre-op holding area, where all preoperative risks and complications were reviewed. Later, the patient was brought into the operating room by the anesthesia staff and was placed in the supine position. A time out was performed to confirmed patient's identity and the procedure to be performed. The patient was then induced for general anesthesia and intubated with a nasal endotracheal tube. Following intubation, the nasal endotracheal tube was secured by the safety technician team. The patient was prepped and draped in standard safety technician fashion. A throat pack was placed. Approx. 5cc 1% lidocaine with 1:100K epi was administered via subcutaneous infiltration at the planned intraoral incision sites. A preincision pause was performed. IMF screws were placed, 3 in maxilla and 4 in mandible. Attention was then turned to the right neck. A 15 blade was used to create a skin incision through fat, and blunt dissection was performed to the level of the platysma. The plastysma was elevated with a mosquito, nerve tested, and divided with sharp incision. The dissection continued through the neck layer by layer with blunt undermining, nerve testing, and sharp incision down to the level of the submandibular gland. The muscular sling of the mandible was divided with bovie down to bone and a periosteal elevator was used to dissect down to inferior border of mandible, and elevated a full thickness flap exposing the line of fracture and the adjacent mandible. Fracture site of the right parasymphesis mandible was exposed, fully visualized and noted to be minimally displaced. Of note there was a sequestrum of bone on the inferior lingual side and the entire fracture segment had fibrous tissue between the 2 segments. A kls reconstruction plate was bent and secured along the inferior border of the mandible with screws. Teeth #26, 27 were extracted as they were mobile with no buccal bony support. IMF was released and the occlusion was found to be stable and reproducible. All remaining IMF screws removed. Intraorally the soft tissue lesion overlying sites #27 was excised with sharp incision and sent as a specimen. Extraorally the orocutaneous fistula was marked with a marking pen and sharp incision was performed followed by dissection along the fistula tract and excision. The extraoral fistula was sent as a second specimen. 3-0 vicryl used to reapproximate the periosteum and muscle over the plate. The fascia of the submandibular gland was closed with 3-0 vicryl. A 10 divehi flat FLORENTIN drain was placed and secured with a 2-0 prolene suture. The platysma was closed with a running 3-0 vicryl suture. The dermal layer was closed with interrupted 3-0 vicryl sutures and the skin was closed with 5-0 fast running suture. The wound was dressed with bacitracin. Intraoral closure was also performed with 3-0 Vicryl suture horizontal mattresses to close the extraction sites and area of the soft tissue excision. The oral cavity was suctioned and throat pack removed. Care of the patient was then transferred over to the anesthesia team. The patient was emerged from anesthesia, extubated and was taken to PACU in stable condition. Dr. Kulkarni was present for all critical portions of the case. Complications: None; patient tolerated the procedure well. Disposition: PACU - hemodynamically stable. Condition: stable Additional Details: NA Attending Attestation: Jimmy Kulkarni Cosigned by Jimmy Kulkarni DDS at 08/06/2024 9:50 AM EDT Associated attestation - Jimmy Kulkarni DDS - 08/06/2024 9:50 AM EDT I was present during all critical and rapp portions of the procedure(s) and immediately available to furnish services the entire duration. See resident note for details. [facility] Work Phone: 08-05-2024 History and physical note History Of Present Illness See Paris is a 79 y.o. male presenting with a right mandibular para symphysis fracture. Patient reports his injury resulted from a fall on 06/14/24. He presented to the emergency department at that time, but has not had the fracture reduced since his accident. He states that his fracture has gotten infected since for which he was prescribed antibiotics by an outside provider. He denies significant pain, swelling, endorses drainage through submandibular fistula. Past Medical History Past Medical History: Diagnosis Date Arthritis Hypertension Prostate cancer (Multi) Vision loss wears corrective lenses Surgical History Past Surgical History: Procedure Laterality Date COLONOSCOPY HIP ARTHROPLASTY PROSTATE SURGERY Social History He reports that he has never smoked. He has never used smokeless tobacco. He reports that he does not use drugs. No history on file for alcohol use. Family History No family history on file. Allergies Oxycodone, Hydrocodone, Hydrocodone-acetaminophen, Ofloxacin, Oxycodone-acetaminophen, and Morphine Physical Exam Constitutional: AAOX3, resting comfortably in bed NEURO: Alert and oriented x3, no gross motor or sensory deficits, CN V and VII intact b/l CV: RRR PULM: Breathing comfortably on RA GI: Abd soft, nontender, nondistended, Skin: Warm and dry. No rashes or lesions noted. Eyes: PERRL, EOMI. clear sclera Head/Face: Bony step-off appreciated when palpating inferior border of right mandible in para-symphysis region, mandibular fracture segments freely mobile, minimal right facial swelling, cutaneous fistula present in right submandibular region which drains purulence upon manual palpation Mouth: Occlusion unstable with only point of contact on left second molar, 1x0.5 cm freely mobile mass present suspected to be fistula on anterior mandibular gingiva buccal tooth #27 Extremities: DUNLAP PSYCH: Appropriate mood and behavior Assessment/Plan Assessment & Plan See Paris is a 79 y.o. male presenting with a right mandibular para symphysis fracture. The plan is for open reduction internal fixation of right mandibular para symphysis fracture with excision of lesion of anterior mandible, and fistulectomy in the OR today (08/05). Plan is for the patient to be admitted to OMFS service following the procedure for continued care [place] [phone] with any issues/concerns. If any issue with contacting via pager, please contact Mauri Martinez via [employer]. 2nd call to contact via [employer] is Rosales Flowers 3rd call via [employer] is Wilfredo Martinez DMD OMFS PGY-1 Cosigned by Jimmy Kulkarni DDS at 08/05/2024 10:55 AM EDT Associated attestation - Jimmy Kulkarni DDS - 08/05/2024 10:55 AM EDT I saw and evaluated the patient. I personally obtained the rapp and critical portions of the history and physical exam or was physically present for rapp and critical portions performed by the resident/fellow. I reviewed the resident/fellow's documentation and discussed the patient with the resident/fellow. I agree with the resident/fellow's medical decision making as documented in the note. [facility] Work Phone: 08-05-2024 History and physical note History Of Present Illness See Paris is a 79 y.o. male presenting with a right mandibular para symphysis fracture. Patient reports his injury resulted from a fall on 06/14/24. He presented to the emergency department at that time, but has not had the fracture reduced since his accident. He states that his fracture has gotten infected since for which he was prescribed antibiotics by an outside provider. He denies significant pain, swelling, endorses drainage through submandibular fistula. Past Medical History Past Medical History: Diagnosis Date Arthritis Hypertension Prostate cancer (Multi) Vision loss wears corrective lenses Surgical History Past Surgical History: Procedure Laterality Date COLONOSCOPY HIP ARTHROPLASTY PROSTATE SURGERY Social History He reports that he has never smoked. He has never used smokeless tobacco. He reports that he does not use drugs. No history on file for alcohol use. Family History No family history on file. Allergies Oxycodone, Hydrocodone, Hydrocodone-acetaminophen, Ofloxacin, Oxycodone-acetaminophen, and Morphine Physical Exam Constitutional: AAOX3, resting comfortably in bed NEURO: Alert and oriented x3, no gross motor or sensory deficits, CN V and VII intact b/l CV: RRR PULM: Breathing comfortably on RA GI: Abd soft, nontender, nondistended, Skin: Warm and dry. No rashes or lesions noted. Eyes: PERRL, EOMI. clear sclera Head/Face: Bony step-off appreciated when palpating inferior border of right mandible in para-symphysis region, mandibular fracture segments freely mobile, minimal right facial swelling, cutaneous fistula present in right submandibular region which drains purulence upon manual palpation Mouth: Occlusion unstable with only point of contact on left second molar, 1x0.5 cm freely mobile mass present suspected to be fistula on anterior mandibular gingiva buccal tooth #27 Extremities: DULNAP PSYCH: Appropriate mood and behavior Assessment/Plan Assessment & Plan See Paris is a 79 y.o. male presenting with a right mandibular para symphysis fracture. The plan is for open reduction internal fixation of right mandibular para symphysis fracture with excision of lesion of anterior mandible, and fistulectomy in the OR today (08/05). Plan is for the patient to be admitted to OMFS service following the procedure for continued care and [place] [phone] with any issues/concerns. If any issue with contacting via pager, please contact Mauri Martinez via [employer]. 2nd call to contact via [employer] is Rosales Flowers 3rd call via [employer] is Wilfredo Martinez DMD OMFS PGY-1 Cosigned by Jimmy Kulkarni DDS at 08/05/2024 10:55 AM EDT Associated attestation - Jimmy Kulkarni DDS - 08/05/2024 10:55 AM EDT I saw and evaluated the patient. I personally obtained the rapp and critical portions of the history and physical exam or was physically present for rapp and critical portions performed by the resident/fellow. I reviewed the resident/fellow's documentation and discussed the patient with the resident/fellow. I agree with the resident/fellow's medical decision making as documented in the note. documented in this encounter [facility] Work Phone: 06-14-2024 Hospital Discharge instructions Arpan Sun DO - 06/14/2024 12:13 PM EST Call to schedule appointment with oral surgery for follow-up: This physician is not a part of the [facility]. [address] [place], [place] [phone] If you need to follow-up with a physician within the [facility], contact the ENT office listed above. documented in this encounter [facility] 06-14-2024 Emergency department Note EMERGENCY DEPARTMENT ENCOUNTER Pt Name: See Paris Birthdate 1945 Date of evaluation: 06/14/2024 ED Provider: Arpan Sun DO CHIEF COMPLAINT Chief Complaint Patient presents with Fall Facial Injury HISTORY OF PRESENT ILLNESS (Location/Symptom, Timing/Onset, Context/Setting, Quality, Duration, Modifying Factors, Severity) Note limiting factors. I wore appropriate PPE for the entirety of this encounter. HPI See Paris is a 79 y.o. who presents to the emergency department with chief complaint of fall. Patient slipped on the ice this morning and fell forward. Sustained a dental injury and is endorsing neck pain as well as left-sided jaw pain. No loss of consciousness. He is on Xarelto. Denies other injuries. Nursing Notes were reviewed. Limitations to history: None Outside historians: None REVIEW OF SYSTEMS Review of Systems Pertinent positives and negatives as per HPI. PAST MEDICAL HISTORY Past Medical History: Diagnosis Date Cancer (CMS/HCC) (HCC) Diverticula, colon Hypertension Reflex abnormality SURGICAL HISTORY Past Surgical History: Procedure Laterality Date KNEE SURGERY PROSTATECTOMY SHOULDER SURGERY CURRENT MEDICATIONS Current Discharge Medication List CONTINUE these medications which have NOT CHANGED Details amitriptyline (Elavil) 10 MG tablet Take 2 tablets (20 mg) by mouth every evening. TAKE 1 TAB BY MOUTH AT SUPPERTIME FOR 7 DAYS, THEN TAKE 2 TABS BY MOUTH SUPPERTIME THEREAFTER Qty: 60 tablet, Refills: 2 Associated Diagnoses: New daily persistent headache amLODIPine (Norvasc) 2.5 MG tablet Take 2 mg by mouth daily. Calcium Carb-Cholecalciferol (CALCIUM/VITAMIN D PO) Take by mouth. Cholecalciferol (VITAMIN D3 PO) Take by mouth daily. megestrol (Megace) 20 MG tablet Take by mouth daily. omeprazole (PriLOSEC) [address] capsule Take 20 mg by mouth every morning (before breakfast). Do not crush or chew. rivaroxaban (Xarelto) 15 MG tablet Take 1 tablet (15 mg) by mouth in the morning and 1 tablet (15 mg) before bedtime. Do all this for 21 days. Qty: 42 tablet, Refills: 0 ALLERGIES Oxycodone, Floxin otic [ofloxacin], Hydrocodone, Morphine, and Percocet [oxycodone-acetaminophen] FAMILY HISTORY Family History Problem Relation Name Age of Onset Cancer Father SOCIAL HISTORY Social History Socioeconomic History Marital status: Tobacco Use Smoking status: Former Smokeless tobacco: Never Vaping Use Vaping status: Never Used Substance and Sexual Activity Alcohol use: Never Drug use: No SCREENINGS PHYSICAL EXAM ED Triage Vitals [06/14/24 1041] Temp Heart Rate Resp BP 36.7 C (98.1 F) 64 16 (!) 154/61 SpO2 Temp src Heart Rate Source Patient Position 99 % -- Monitor -- BP Location FiO2 (%) -- -- Physical Exam Vitals and nursing note reviewed. Constitutional: General: He is not in acute distress. Appearance: He is well-developed. He is not ill-appearing or toxic-appearing. HENT: Head: Normocephalic and atraumatic. Nose: Nose normal. Comments: Midface is stable. No nasal septal hematoma. Mouth/Throat: Mouth: Mucous membranes are moist. Pharynx: Oropharynx is clear. Comments: Bleeding gum around tooth #26/27. Tenderness of the left mandible. No tongue lacerations. Eyes: Conjunctiva/sclera: Conjunctivae normal. Cardiovascular: Pulses: Normal pulses. Pulmonary: Effort: Pulmonary effort is normal. No respiratory distress. Abdominal: General: There is no distension. Palpations: Abdomen is soft. Tenderness: There is no abdominal tenderness. Musculoskeletal: General: No swelling. Normal range of motion. Cervical back: Normal range of motion and neck supple. Tenderness (generalized cervical) present. Comments: Pelvis stable. No hip tenderness of the lateral. No midline spinal tenderness of the thoracic or lumbar spine. Skin: General: Skin is warm and dry. Capillary Refill: Capillary refill takes less than 2 seconds. Neurological: General: No focal deficit present. Mental Status: He is alert. Mental status is at baseline. DIAGNOSTIC RESULTS RADIOLOGY (Per Emergency Physician): Interpretation per the Radiologist below, if available at the time of this note: CT cervical spine wo IV contrast Final Result No acute brain process identified. Facial fracture. CT cervical spine: Indication: Trauma and neck pain FINDINGS: Dose reduction was employed with automated exposure control. Unenhanced cervical spine performed. 3-D imaging created and reviewed on independent 3-D workstation for better detection of pathology evaluation of neural foramina. Limited by motion. Bone :Fracture left maxillary sinus posterior wall. Acute lesions: No acute fracture or dislocation. Soft tissues: No soft tissue swelling. Arthritis: Degenerative changes visible. Posterior osteophytes cause neural foraminal narrowing. Limited views of skull base unremarkable. Visualized portions of lung apices Show no major volume loss.. IMPRESSION: No acute process of the cervical spine. Report Dictated on Electronically Signed By: Carlos Franco MD Electronically Signed Date/Time: 06/14/2024 11:[address] maxillofacial wo IV contrast Final Result Fracture left maxilla. Report Dictated on Electronically Signed By: Carlos Franco MD Electronically Signed Date/Time: 06/14/2024 11:[address] head wo IV contrast Final Result No acute brain process identified. Facial fracture. CT cervical spine: Indication: Trauma and neck pain FINDINGS: Dose reduction was employed with automated exposure control. Unenhanced cervical spine performed. 3-D imaging created and reviewed on independent 3-D workstation for better detection of pathology evaluation of neural foramina. Limited by motion. Bone :Fracture left maxillary sinus posterior wall. Acute lesions: No acute fracture or dislocation. Soft tissues: No soft tissue swelling. Arthritis: Degenerative changes visible. Posterior osteophytes cause neural foraminal narrowing. Limited views of skull base unremarkable. Visualized portions of lung apices Show no major volume loss.. IMPRESSION: No acute process of the cervical spine. Report Dictated on Electronically Signed By: Carlos Franco MD Electronically Signed Date/Time: 06/14/2024 11:20 AM EST ED BEDSIDE ULTRASOUND: Performed by ED Physician - none LABS: Labs Reviewed - No data to display All other labs were within normal range or not returned as of this dictation. EMERGENCY DEPARTMENT COURSE and DIFFERENTIAL DIAGNOSIS/MDM: Vitals: Vitals: 06/14/24 1041 06/14/24 1120 BP: (!) 154/61 133/74 Pulse: 64 71 Resp: 16 16 Temp: 36.7 C (98.1 F) SpO2: 99% 96% Weight: 90.7 kg (200 lb) Height: 1.778 m (5' 10) Diagnoses as of 06/14/24 1216 Fall, initial encounter Closed fracture of maxillary sinus, initial encounter ([facility]) The patient presented with chief complaint of fall. The differential diagnosis associated with this patient's presentation includes intracranial bleeding, cervical injury, Mandibular fracture. Our workup consisted of ordering/reviewing: Imaging. Patient is in agreement with this plan. Medications - No data to display REVAL: 79-year-old male presenting to the ED after mechanical fall. He is anticoagulated. Patient is alert and neurologically intact, vitals are stable. Imaging was obtained with CT head, C-spine and maxillofacial bones. No evidence of intracranial bleeding or cervical injury however he does have a left maxillary sinus fracture. No obvious dental fractures. No loose teeth. Patient will be given follow-up with oral surgery and is comfortable taking Tylenol and icing for pain. Will return to the ER for worsening symptoms. CRITICAL CARE TIME CONSULTS: None PROCEDURES: Unless otherwise noted below, none Procedures Patients symptoms are consistent with sepsis, severe sepsis, or septic shock (If yes use .sepsiscoremeasure): FINAL IMPRESSION 1. Fall, initial encounter 2. Closed fracture of maxillary sinus, initial encounter ([facility]) DISPOSITION Discharge 06/14/2024 12:09:45 PM PATIENT REFERRED TO: [facility] [address] [place] [id number] DISCHARGE MEDICATIONS: Current Discharge Medication List (Comment: Please note this report has been produced using speech recognition software and may contain errors related to that system including errors in grammar, punctuation, and spelling, as well as words and phrases that may be inappropriate. If there are any questions or concerns please feel free to contact the dictating provider for clarification.) Arpan Sun DO (electronically signed) Emergency Medicine Provider Arpan Sun DO 06/14/24 1217 Patient to room 3 with c/o a fall around 0930 this am. Patient was walking out his back door and slipped on the ice, landing on his face. Patient takes Xarelto. Patient reports jaw, mouth, and neck pain. V/S obtained, call light within reach. documented in this encounter [facility] 06-14-2024 Emergency department Triage note Patient to room 3 with c/o a fall around 0930 this am. Patient was walking out his back door and slipped on the ice, landing on his face. Patient takes Xarelto. Patient reports jaw, mouth, and neck pain. V/S obtained, call light within reach. [facility] 06-14-2024 Physician Emergency department Note EMERGENCY DEPARTMENT ENCOUNTER Pt Name: See Paris Birthdate 1945 Date of evaluation: 06/14/2024 ED Provider: Arpan Sun DO CHIEF COMPLAINT Chief Complaint Patient presents with Fall Facial Injury HISTORY OF PRESENT ILLNESS (Location/Symptom, Timing/Onset, Context/Setting, Quality, Duration, Modifying Factors, Severity) Note limiting factors. I wore appropriate PPE for the entirety of this encounter. HPI See Paris is a 79 y.o. who presents to the emergency department with chief complaint of fall. Patient slipped on the ice this morning and fell forward. Sustained a dental injury and is endorsing neck pain as well as left-sided jaw pain. No loss of consciousness. He is on Xarelto. Denies other injuries. Nursing Notes were reviewed. Limitations to history: None Outside historians: None REVIEW OF SYSTEMS Review of Systems Pertinent positives and negatives as per HPI. PAST MEDICAL HISTORY Past Medical History: Diagnosis Date Cancer (CMS/HCC) (HCC) Diverticula, colon Hypertension Reflex abnormality SURGICAL HISTORY Past Surgical History: Procedure Laterality Date KNEE SURGERY PROSTATECTOMY SHOULDER SURGERY CURRENT MEDICATIONS Current Discharge Medication List CONTINUE these medications which have NOT CHANGED Details amitriptyline (Elavil) 10 MG tablet Take 2 tablets (20 mg) by mouth every evening. TAKE 1 TAB BY MOUTH AT SUPPERTIME FOR 7 DAYS, THEN TAKE 2 TABS BY MOUTH SUPPERTIME THEREAFTER Qty: 60 tablet, Refills: 2 Associated Diagnoses: New daily persistent headache amLODIPine (Norvasc) 2.5 MG tablet Take 2 mg by mouth daily. Calcium Carb-Cholecalciferol (CALCIUM/VITAMIN D PO) Take by mouth. Cholecalciferol (VITAMIN D3 PO) Take by mouth daily. megestrol (Megace) 20 MG tablet Take by mouth daily. omeprazole (PriLOSEC) [address] capsule Take 20 mg by mouth every morning (before breakfast). Do not crush or chew. rivaroxaban (Xarelto) 15 MG tablet Take 1 tablet (15 mg) by mouth in the morning and 1 tablet (15 mg) before bedtime. Do all this for 21 days. Qty: 42 tablet, Refills: 0 ALLERGIES Oxycodone, Floxin otic [ofloxacin], Hydrocodone, Morphine, and Percocet [oxycodone-acetaminophen] FAMILY HISTORY Family History Problem Relation Name Age of Onset Cancer Father SOCIAL HISTORY Social History Socioeconomic History Marital status: Tobacco Use Smoking status: Former Smokeless tobacco: Never Vaping Use Vaping status: Never Used Substance and Sexual Activity Alcohol use: Never Drug use: No SCREENINGS PHYSICAL EXAM ED Triage Vitals [06/14/24 1041] Temp Heart Rate Resp BP 36.7 C (98.1 F) 64 16 (!) 154/61 SpO2 Temp src Heart Rate Source Patient Position 99 % -- Monitor -- BP Location FiO2 (%) -- -- Physical Exam Vitals and nursing note reviewed. Constitutional: General: He is not in acute distress. Appearance: He is well-developed. He is not ill-appearing or toxic-appearing. HENT: Head: Normocephalic and atraumatic. Nose: Nose normal. Comments: Midface is stable. No nasal septal hematoma. Mouth/Throat: Mouth: Mucous membranes are moist. Pharynx: Oropharynx is clear. Comments: Bleeding gum around tooth #26/27. Tenderness of the left mandible. No tongue lacerations. Eyes: Conjunctiva/sclera: Conjunctivae normal. Cardiovascular: Pulses: Normal pulses. Pulmonary: Effort: Pulmonary effort is normal. No respiratory distress. Abdominal: General: There is no distension. Palpations: Abdomen is soft. Tenderness: There is no abdominal tenderness. Musculoskeletal: General: No swelling. Normal range of motion. Cervical back: Normal range of motion and neck supple. Tenderness (generalized cervical) present. Comments: Pelvis stable. No hip tenderness of the lateral. No midline spinal tenderness of the thoracic or lumbar spine. Skin: General: Skin is warm and dry. Capillary Refill: Capillary refill takes less than 2 seconds. Neurological: General: No focal deficit present. Mental Status: He is alert. Mental status is at baseline. DIAGNOSTIC RESULTS RADIOLOGY (Per Emergency Physician): Interpretation per the Radiologist below, if available at the time of this note: CT cervical spine wo IV contrast Final Result No acute brain process identified. Facial fracture. CT cervical spine: Indication: Trauma and neck pain FINDINGS: Dose reduction was employed with automated exposure control. Unenhanced cervical spine performed. 3-D imaging created and reviewed on independent 3-D workstation for better detection of pathology evaluation of neural foramina. Limited by motion. Bone :Fracture left maxillary sinus posterior wall. Acute lesions: No acute fracture or dislocation. Soft tissues: No soft tissue swelling. Arthritis: Degenerative changes visible. Posterior osteophytes cause neural foraminal narrowing. Limited views of skull base unremarkable. Visualized portions of lung apices Show no major volume loss.. IMPRESSION: No acute process of the cervical spine. Report Dictated on Electronically Signed By: Carlos Franco MD Electronically Signed Date/Time: 06/14/2024 11:[address] maxillofacial wo IV contrast Final Result Fracture left maxilla. Report Dictated on Electronically Signed By: Carlos Franco MD Electronically Signed Date/Time: 06/14/2024 11:[address] head wo IV contrast Final Result No acute brain process identified. Facial fracture. CT cervical spine: Indication: Trauma and neck pain FINDINGS: Dose reduction was employed with automated exposure control. Unenhanced cervical spine performed. 3-D imaging created and reviewed on independent 3-D workstation for better detection of pathology evaluation of neural foramina. Limited by motion. Bone :Fracture left maxillary sinus posterior wall. Acute lesions: No acute fracture or dislocation. Soft tissues: No soft tissue swelling. Arthritis: Degenerative changes visible. Posterior osteophytes cause neural foraminal narrowing. Limited views of skull base unremarkable. Visualized portions of lung apices Show no major volume loss.. IMPRESSION: No acute process of the cervical spine. Report Dictated on Electronically Signed By: Carlos Franco MD Electronically Signed Date/Time: 06/14/2024 11:20 AM EST ED BEDSIDE ULTRASOUND: Performed by ED Physician - none LABS: Labs Reviewed - No data to display All other labs were within normal range or not returned as of this dictation. EMERGENCY DEPARTMENT COURSE and DIFFERENTIAL DIAGNOSIS/MDM: Vitals: Vitals: 06/14/24 1041 06/14/24 1120 BP: (!) 154/61 133/74 Pulse: 64 71 Resp: 16 16 Temp: 36.7 C (98.1 F) SpO2: 99% 96% Weight: 90.7 kg (200 lb) Height: 1.778 m (5' 10) Diagnoses as of 06/14/24 1216 Fall, initial encounter Closed fracture of maxillary sinus, initial encounter ([facility]) The patient presented with chief complaint of fall. The differential diagnosis associated with this patient's presentation includes intracranial bleeding, cervical injury, Mandibular fracture. Our workup consisted of ordering/reviewing: Imaging. Patient is in agreement with this plan. Medications - No data to display REVAL: 79-year-old male presenting to the ED after mechanical fall. He is anticoagulated. Patient is alert and neurologically intact, vitals are stable. Imaging was obtained with CT head, C-spine and maxillofacial bones. No evidence of intracranial bleeding or cervical injury however he does have a left maxillary sinus fracture. No obvious dental fractures. No loose teeth. Patient will be given follow-up with oral surgery and is comfortable taking Tylenol and icing for pain. Will return to the ER for worsening symptoms. CRITICAL CARE TIME CONSULTS: None PROCEDURES: Unless otherwise noted below, none Procedures Patients symptoms are consistent with sepsis, severe sepsis, or septic shock (If yes use .sepsiscoremeasure): FINAL IMPRESSION 1. Fall, initial encounter 2. Closed fracture of maxillary sinus, initial encounter ([facility]) DISPOSITION Discharge 06/14/2024 12:09:45 PM PATIENT REFERRED TO: [facility] [address] [place] [id number] DISCHARGE MEDICATIONS: Current Discharge Medication List (Comment: Please note this report has been produced using speech recognition software and may contain errors related to that system including errors in grammar, punctuation, and spelling, as well as words and phrases that may be inappropriate. If there are any questions or concerns please feel free to contact the dictating provider for clarification.) Arpan Sun DO (electronically signed) Emergency Medicine Provider Arpan Sun DO 06/14/24 1217 [facility] 03-11-2024 Note HNO ID: [id number] Author: MARY GONZALEZ MD Service: ? Author Type: Physician Type: Progress Notes Filed: 09/14/2024 13:01 Note Text: ESTABLISHED PATIENT OFFICE VISIT HISTORY OF PRESENT ILLNESS No chief complaint on file. 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 LAB RESULTS Creatinine Date Value Ref Range Status 01/18/2019 1.10 0.67 - 1.17 mg/dL Final PSA Date Value 03/02/2024 0.64 ng/mL 11/11/2023 1.18 ng/mL 07/22/2023 4.4 ng/mL 04/08/2023 2.3 ng/mL 06/18/2022 0.32 ng/mL 07/12/2021 4.5 ng/mL 03/27/2021 3.7 ng/mL 11/18/2020 2.4 ng/mL 07/12/2020 2.4 ng/mL 02/22/2020 1.8 ng/mL 10/27/2019 1.4 NG/ML Color (no units) Date Value 01/17/2019 YELLOW Glucose, Urine (mg/dL) Date Value 01/17/2019 NEGATIVE Bilirubin, Urine (no units) Date Value 01/17/2019 NEGATIVE Ketones, Urine (mg/dL) Date Value 01/17/2019 NEGATIVE Specific [place], Ur (no units) Date Value 01/17/2019 1.020 pH, Urine (no units) Date Value 01/17/2019 8.5 Protein, Urine (mg/dL) Date Value 01/17/2019 NEGATIVE Nitrites Urine (no units) Date Value 01/17/2019 NEGATIVE Leukocytes Esterase (no units) Date Value 01/17/2019 NEGATIVE ALLERGIES Allergen Reactions Morphine Other: See Comments Ofloxacin Other: See Comments Percocet [Oxycodone* Unknown MEDICATIONS: megestrol (MEGACE) 20 mg tablet Take 1 tablet (20 mg) by mouth two times a day. amitriptyline (ELAVIL) 10 mg tablet TAKE 1 TAB BY MOUTH AT SUPPERTIME FOR 7 DAYS, THEN TAKE 2 TABS BY MOUTH SUPPERTIME THEREAFTER rivaroxaban (XARELTO) 20 mg tablet Take 20 mg by mouth daily with dinner. bicalutamide (CASODEX) 50 mg tablet TAKE 1 TABLET BY MOUTH EVERY DAY omega 1-onx-vfv-fish oil (FISH OIL) 100-160-1,000 mg cap Take by mouth. meclizine (ANTIVERT) 25 mg tab Take 1 tablet by mouth three times daily as needed. ondansetron orally disintegrating (ZOFRAN ODT) 4 mg disintegrating tablet Take 1 tablet by mouth every 8 hours as needed. Cholecalciferol, Vitamin D3, 1,000 unit cap Take 1,000 Units by mouth once daily. calcium carbonate (CALTRATE) 600 mg calcium (1,500 mg) tab Take 1 tablet by mouth once daily. TURMERIC-HERBAL COMPLEX NO.278 ORAL Take 1 tablet by mouth once daily. amLODIPine (NORVASC) 5 mg tablet Take 5 mg by mouth once daily. doxazosin (CARDURA) 2 mg tablet Take 2 mg by mouth daily at bedtime. omeprazole (PRILOSEC) 20 mg capsule Take 40 mg by mouth daily at bedtime. REVIEW OF SYSTEMS GENERAL:no unintentional weight loss, malaise or fevers. NEUROLOGIC: pt is alert and oriented GENITOURINARY: Positive for BPH The remainder of the ROS was reviewed and is negative. HISTORIES PAST MEDICAL HISTORY Diagnosis Date Arthritis Elevated PSA GERD (gastroesophageal reflux disease) Melanoma (HCC) Prostate cancer (HCC) No family history on file. PAST SURGICAL HISTORY Procedure Laterality Date LAPS PROSTECT RETROPUBIC RAD W/NRV SPARING ROBOT MELANOMA OF SKIN EXCISION SYN RPT PAST SURGICAL HISTORY OF removal of skin cancer from nose TOTAL HIP REPLACEMENT 09/04/2022 SOCIAL HISTORY Social History Tobacco Use Smoking status: Never Smokeless tobacco: Never Vaping Use Vaping status: Never Used Substance Use Topics Alcohol use: Yes Comment: once monthly Drug use: No PHYSICAL EXAMINATION General appearance: Well appearing, alert, in no acute distress, well-hydrated, well nourished Psych Alert and oriented to person, place and time Respiratory: no wheezing or rhonchi Genitourinary: MALE EXAM: Exam NOT Indicated 09/08/2024 PSA 1.7, test 490 03/02/2024 PSA 0.6 11/11/2023 PSA 1.2 09/05/2023 Lupron 08/22/2023 PSMA PET 0.4cm area uptake in prostatectomy bed 07/22/2023 PSA 4.4 06/18/2022 PSA 0.3 12/12/2021 Lupron 10/27/2021 PSA 2.0 07/28/2021 PSMA PET ++ two <1cm areas right pelvic fossa suspicious 07/12/2021 PSA 4.5 11/18/2020 PSA 2.4 07/12/2020 PSA 2.4 02/23/2020 PSA 1.8 10/27/2019 PSA 1.4 08/25/2019 PSA 1.7 10/20/2018 PSA 1.1 10/15/2017 PSA 0.6 07/30/2016: PSA: 0.4 01/16/2016: PSA: 0.3 07/12/2015: PSA: 0.3 01/03/2015: PSA: 0.29 09/13/2014: salvage IMRT complete 07/08/2014: PSA: 0.27 06/14/2014: PSA: 0.29 02/17/2014: PSA: 0.20 08/21/2013: PSA: 0.15 02/05/2008: PSA: 0.1 01/15/2008: PSA: 0.12 12/02/2007: RALP Gl 7, neg margins 06/10/2007: PSA: 6.3 (PROSCAR) Assessment and Plan: BPH/LUTS- nocturia 2-4x, no hematuria/dysuria, freq Q 2h, no urgency or leak LBP- chronic, gets steroid injection Q 3 mths ED- weak erections and looses quickly, no help with PO pills in past Prostate cancer- s/p RALP followed salvage IMRT, he previously refused oncology referral and not interested in additional XRT or salvage therapies - last Lupron 08/2023, again he had hot flashes and less energy (no help with Megace) after injection, latest PSA 0.6 and decreasing so no ADT today and he's hesitant as (more content not included)... [facility] 03-11-2024 History of Present illness Narrative ESTABLISHED PATIENT OFFICE VISIT HISTORY OF PRESENT ILLNESS No chief complaint on file. 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 LAB RESULTS Creatinine Date Value Ref Range Status 01/18/2019 1.10 0.67 - 1.17 mg/dL Final PSA Date Value 03/02/2024 0.64 ng/mL 11/11/2023 1.18 ng/mL 07/22/2023 4.4 ng/mL 04/08/2023 2.3 ng/mL 06/18/2022 0.32 ng/mL 07/12/2021 4.5 ng/mL 03/27/2021 3.7 ng/mL 11/18/2020 2.4 ng/mL 07/12/2020 2.4 ng/mL 02/22/2020 1.8 ng/mL 10/27/2019 1.4 NG/ML Color (no units) Date Value 01/17/2019 YELLOW Glucose, Urine (mg/dL) Date Value 01/17/2019 NEGATIVE Bilirubin, Urine (no units) Date Value 01/17/2019 NEGATIVE Ketones, Urine (mg/dL) Date Value 01/17/2019 NEGATIVE Specific [place], Ur (no units) Date Value 01/17/2019 1.020 pH, Urine (no units) Date Value 01/17/2019 8.5 Protein, Urine (mg/dL) Date Value 01/17/2019 NEGATIVE Nitrites Urine (no units) Date Value 01/17/2019 NEGATIVE Leukocytes Esterase (no units) Date Value 01/17/2019 NEGATIVE ALLERGIES Allergen Reactions Morphine Other: See Comments Ofloxacin Other: See Comments Percocet [Oxycodone* Unknown MEDICATIONS: megestrol (MEGACE) 20 mg tablet Take 1 tablet (20 mg) by mouth two times a day. amitriptyline (ELAVIL) 10 mg tablet TAKE 1 TAB BY MOUTH AT SUPPERTIME FOR 7 DAYS, THEN TAKE 2 TABS BY MOUTH SUPPERTIME THEREAFTER rivaroxaban (XARELTO) 20 mg tablet Take 20 mg by mouth daily with dinner. bicalutamide (CASODEX) 50 mg tablet TAKE 1 TABLET BY MOUTH EVERY DAY omega 8-fxn-fpx-fish oil (FISH OIL) 100-160-1,000 mg cap Take by mouth. meclizine (ANTIVERT) 25 mg tab Take 1 tablet by mouth three times daily as needed. ondansetron orally disintegrating (ZOFRAN ODT) 4 mg disintegrating tablet Take 1 tablet by mouth every 8 hours as needed. Cholecalciferol, Vitamin D3, 1,000 unit cap Take 1,000 Units by mouth once daily. calcium carbonate (CALTRATE) 600 mg calcium (1,500 mg) tab Take 1 tablet by mouth once daily. TURMERIC-HERBAL COMPLEX NO.278 ORAL Take 1 tablet by mouth once daily. amLODIPine (NORVASC) 5 mg tablet Take 5 mg by mouth once daily. doxazosin (CARDURA) 2 mg tablet Take 2 mg by mouth daily at bedtime. omeprazole (PRILOSEC) 20 mg capsule Take 40 mg by mouth daily at bedtime. REVIEW OF SYSTEMS GENERAL:no unintentional weight loss, malaise or fevers. NEUROLOGIC: pt is alert and oriented GENITOURINARY: Positive for BPH The remainder of the ROS was reviewed and is negative. HISTORIES PAST MEDICAL HISTORY Diagnosis Date Arthritis Elevated PSA GERD (gastroesophageal reflux disease) Melanoma (HCC) Prostate cancer (HCC) No family history on file. PAST SURGICAL HISTORY Procedure Laterality Date LAPS PROSTECT RETROPUBIC RAD W/NRV SPARING ROBOT MELANOMA OF SKIN EXCISION SYN RPT PAST SURGICAL HISTORY OF removal of skin cancer from nose TOTAL HIP REPLACEMENT 09/04/2022 SOCIAL HISTORY Social History Tobacco Use Smoking status: Never Smokeless tobacco: Never Vaping Use Vaping status: Never Used Substance Use Topics Alcohol use: Yes Comment: once monthly Drug use: No PHYSICAL EXAMINATION General appearance: Well appearing, alert, in no acute distress, well-hydrated, well nourished Psych Alert and oriented to person, place and time Respiratory: no wheezing or rhonchi Genitourinary: MALE EXAM: Exam NOT Indicated 03/02/2024 PSA 0.6 11/11/2023 PSA 1.2 09/05/2023 Lupron 08/22/2023 PSMA PET 0.4cm area uptake in prostatectomy bed 07/22/2023 PSA 4.4 06/18/2022 PSA 0.3 12/12/2021 Lupron 10/27/2021 PSA 2.0 07/28/2021 PSMA PET ++ two <1cm areas right pelvic fossa suspicious 07/12/2021 PSA 4.5 11/18/2020 PSA 2.4 07/12/2020 PSA 2.4 02/23/2020 PSA 1.8 10/27/2019 PSA 1.4 08/25/2019 PSA 1.7 10/20/2018 PSA 1.1 10/15/2017 PSA 0.6 07/30/2016: PSA: 0.4 01/16/2016: PSA: 0.3 07/12/2015: PSA: 0.3 01/03/2015: PSA: 0.29 09/13/2014: salvage IMRT complete 07/08/2014: PSA: 0.27 06/14/2014: PSA: 0.29 02/17/2014: PSA: 0.20 08/21/2013: PSA: 0.15 02/05/2008: PSA: 0.1 01/15/2008: PSA: 0.12 12/02/2007: RALP Gl 7, neg margins 06/10/2007: PSA: 6.3 (PROSCAR) Assessment and Plan: BPH/LUTS- nocturia 2-4x, no hematuria/dysuria, freq Q 2h, no urgency or leak LBP- chronic, gets steroid injection Q 3 mths ED- weak erections and looses quickly, no help with PO pills in past Prostate cancer- s/p RALP followed salvage IMRT, he previously refused oncology referral and not interested in additional XRT or salvage therapies - last Lupron 08/2023, again he had hot flashes and less energy (no help with Megace) after injection, latest PSA 0.6 and decreasing so no ADT today and he's hesitant as he'd do another injection in the future - could just try Casodex??? - PSA and test in 6 mths documented in this encounter [facility] 09-05-2023 Miscellaneous Notes Pt said that he would like to have refill called in for the medicatopn that helps with heat flashes ? Thanks documented in this encounter [facility] 09-05-2023 Nurse Note Patient given 45mg Lupron injection as documented in the MAR. Patient tolerated well. 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 LAB RESULTS Creatinine Date Value Ref Range Status 01/18/2019 1.10 0.67 - 1.17 mg/dL Final PSA Date Value 07/22/2023 4.4 ng/mL 04/08/2023 2.3 ng/mL 06/18/2022 0.32 ng/mL 07/12/2021 4.5 ng/mL 03/27/2021 3.7 ng/mL 11/18/2020 2.4 ng/mL 07/12/2020 2.4 ng/mL 02/22/2020 1.8 ng/mL 10/27/2019 1.4 NG/ML 10/20/2018 1.1 NG/ML 01/22/2017 0.5 ng/mL Color (no units) Date Value 01/17/2019 YELLOW Glucose, Urine (mg/dL) Date Value 01/17/2019 NEGATIVE Bilirubin, Urine (no units) Date Value 01/17/2019 NEGATIVE Ketones, Urine (mg/dL) Date Value 01/17/2019 NEGATIVE Specific [place], Ur (no units) Date Value 01/17/2019 1.020 pH, Urine (no units) Date Value 01/17/2019 8.5 Protein, Urine (mg/dL) Date Value 01/17/2019 NEGATIVE Nitrites Urine (no units) Date Value 01/17/2019 NEGATIVE Leukocytes Esterase (no units) Date Value 01/17/2019 NEGATIVE ALLERGIES Allergen Reactions Morphine Other: See Comments Ofloxacin Other: See Comments Percocet [Oxycodone* Unknown MEDICATIONS: amitriptyline (ELAVIL) 10 mg tablet TAKE 1 TAB BY MOUTH AT SUPPERTIME FOR 7 DAYS, THEN TAKE 2 TABS BY MOUTH SUPPERTIME THEREAFTER rivaroxaban (XARELTO) 20 mg tablet Take 20 mg by mouth daily with dinner. megestrol (MEGACE) 20 mg tablet TAKE 1 TABLET BY MOUTH TWICE A DAY bicalutamide (CASODEX) 50 mg tablet TAKE 1 TABLET BY MOUTH EVERY DAY omega 9-hdu-ekg-fish oil (FISH OIL) 100-160-1,000 mg cap Take by mouth. meclizine (ANTIVERT) 25 mg tab Take 1 tablet by mouth three times daily as needed. ondansetron orally disintegrating (ZOFRAN ODT) 4 mg disintegrating tablet Take 1 tablet by mouth every 8 hours as needed. Cholecalciferol, Vitamin D3, 1,000 unit cap Take 1,000 Units by mouth once daily. calcium carbonate (CALTRATE) 600 mg calcium (1,500 mg) tab Take 1 tablet by mouth once daily. TURMERIC-HERBAL COMPLEX NO.278 ORAL Take 1 tablet by mouth once daily. amLODIPine (NORVASC) 5 mg tablet Take 5 mg by mouth once daily. doxazosin (CARDURA) 2 mg tablet Take 2 mg by mouth daily at bedtime. omeprazole (PRILOSEC) 20 mg capsule Take 40 mg by mouth daily at bedtime. REVIEW OF SYSTEMS GENERAL:no unintentional weight loss, malaise or fevers. NEUROLOGIC: pt is alert and oriented GENITOURINARY: Positive for BPH The remainder of the ROS was reviewed and is negative. HISTORIES PAST MEDICAL HISTORY Diagnosis Date Arthritis Elevated PSA GERD (gastroesophageal reflux disease) Melanoma (HCC) Prostate cancer (HCC) History reviewed. No pertinent family history. PAST SURGICAL HISTORY Procedure Laterality Date LAPS PROSTECT RETROPUBIC RAD W/NRV SPARING ROBOT MELANOMA OF SKIN EXCISION SYN RPT PAST SURGICAL HISTORY OF removal of skin cancer from nose TOTAL HIP REPLACEMENT 09/04/2022 SOCIAL HISTORY Social History Tobacco Use Smoking status: Never Smokeless tobacco: Never Vaping Use Vaping Use: Never used Substance Use Topics Alcohol use: Yes Comment: once monthly Drug use: No PHYSICAL EXAMINATION General appearance: Well appearing, alert, in no acute distress, well-hydrated, well nourished Psych Alert and oriented to person, place and time Respiratory: no wheezing or rhonchi Genitourinary: MALE EXAM: Exam NOT Indicated 09/05/2023 Lupron 08/22/2023 PSMA PET 0.4cm area uptake in prostatectomy bed 07/22/2023 PSA 4.4 06/18/2022 PSA 0.3 12/12/2021 Lupron 10/27/2021 PSA 2.0 07/28/2021 PSMA PET ++ two <1cm areas right pelvic fossa suspicious 07/12/2021 PSA 4.5 11/18/2020 PSA 2.4 07/12/2020 PSA 2.4 02/23/2020 PSA 1.8 10/27/2019 PSA 1.4 08/25/2019 PSA 1.7 10/20/2018 PSA 1.1 10/15/2017 PSA 0.6 07/30/2016: PSA: 0.4 01/16/2016: PSA: 0.3 07/12/2015: PSA: 0.3 01/03/2015: PSA: 0.29 09/13/2014: salvage IMRT complete 07/08/2014: PSA: 0.27 06/14/2014: PSA: 0.29 02/17/2014: PSA: 0.20 08/21/2013: PSA: 0.15 02/05/2008: PSA: 0.1 01/15/2008: PSA: 0.12 12/02/2007: RALP Gl 7, neg margins 06/10/2007: PSA: 6.3 (PROSCAR) Assessment and Plan: BPH/LUTS- nocturia 2x, no hematuria/dysuria, stable ED- weak erections and looses quickly, no help with PO pills in past LBP- chronic, gets steroid injection Q 3 mths Prostate cancer- s/p RALP followed salvage IMRT - previously refused oncology referral - PSA up to 4.4, repeat PSMA PET as above - last Lupron 11/2021, had hot flashes and less energy, pt says it was tough but worked. Hesitant to have more lupron due to side effects- told him recommended due to PSA and he agrees Lupron today PSA 3 & 6 mths documented in this encounter [facility] 08-22-2023 History of Present illness Narrative RADIOLOGY SERVICE PROGRESS NOTE SERVICE DATE: 08/22/2023 SERVICE TIME: 12:27 PM PATIENT IDENTITY VERIFICATION COMPLETED USING TWO (2) STANDARD IDENTIFIERS: Name and Date of confirmed by patient verbally and Name and Date of confirmed by identification band FALL SCREENING: Has the patient had 2 falls in the last year or 1 fall with injury or currently using an Ambulatory Assistive Device (Walker, Cane, Wheelchair, Crutches, etc.)? No PATIENT GENDER DATA: .male ALLERGIES: Reviewed and unchanged MEDICATIONS REVIEWED: No PATIENT RELEVANT IMPLANT DATA REVIEWED: Not Applicable PATIENT PRESENTS WITH AN IMPLANTABLE OR ATTACHED SUPERVISOR WEAVING: No CREATININE: Creatinine Date Value Ref Range Status 01/18/2019 1.10 0.67 - 1.17 mg/dL Final 01/17/2019 1.03 0.67 - 1.17 mg/dL Final P.O.C.T. RESULTS: N/A August 22, [address] PERFORMED: No IV SITE: Ambulatory: NM only - direct IV injection in the Right hand POST EXAM PIV STATUS: Discontinued PROCEDURE TYPE: NM INJECT: PET/CT WHOLE BODY SCAN. 9.6 mCi [id number]. No other medications given.. ADMINISTRATION TIME: 1220 PATIENT DISCHARGED TO: Ambulatory patient, left NM department area. A Diagnostic radioactive procedure has taken place, with no further precautions necessary other than routine body substance precautions. More information regarding radiation safety can be found using this link: [email or web address] SIGNATURE: RT Courtney(R) PATIENT NAME: See Paris DATE: August 22, 2023 TIME: 12:27 PM PAGER/CONTACT #: documented in this encounter [facility] 08-21-2023 History of Present illness Narrative Visit type: Established Patient Reason for Visit: Follow-up and Vertebral artery insufficiency Assessment and Plan 1. Cervico-occipital neuralgia - External referral to Physical Therapy 2. Vertigo - External referral to Physical Therapy 3. New daily persistent headache - amitriptyline (Elavil) 10 MG tablet; Take 2 tablets (20 mg) by mouth every evening. TAKE 1 TAB BY MOUTH AT SUPPERTIME FOR 7 DAYS, THEN TAKE 2 TABS BY MOUTH SUPPERTIME THEREAFTER, Starting Sat08/21/2023, Until Sat11/19/2023, Normal Subjective HPI: Patient presented new to office in Jun with c/o dizziness and neck pain for which he was receiving PT for; then developed frequent DARBY after receiving neck massages in PT. Was prescribed Pred taper and Amitriptyline 20mg at bedtime for headaches. Patient states the medication has helped resolve the headaches. No side effects. Still experiences occasional dizziness, but only with positon changes - when goes from lying to sitting Experiences neck pain only with turning head C/o constant blurred vision that started prior to all of this; due for eye exam. 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 No new neurological issues X-ray cervical spine 07/13- IMPRESSION: No acute osseous findings. Moderate multilevel cervical spondylosis with mild spinal instability at C4-5 and C5-6. CTA head neck 08/10- IMPRESSION: 1. No acute intracranial abnormality. Chronic microvascular change. 2. No significant stenosis, dissection, or aneurysm in the intracranial or extracranial circulation. REVIEW OF SYSTEMS: Review of Systems Constitutional: Negative. HENT: Negative. Eyes: Negative. Respiratory: Negative. Cardiovascular: Negative. Gastrointestinal: Negative. Endocrine: Negative. Genitourinary: Negative. Musculoskeletal: Positive for neck pain. Skin: Negative. Allergic/Immunologic: Negative. Neurological: Negative. Hematological: Negative. Psychiatric/Behavioral: Negative. Allergies Allergen Reactions Floxin Otic [Ofloxacin] Morphine Percocet [Oxycodone-Acetaminophen] Outpatient Medications Prior to Visit Medication Sig Dispense Refill amLODIPine (Norvasc) 2.5 MG tablet Take 2 mg by mouth daily. Calcium Carb-Cholecalciferol (CALCIUM/VITAMIN D PO) Take by mouth. Cholecalciferol (VITAMIN D3 PO) Take by mouth daily. megestrol (Megace) 20 MG tablet Take by mouth daily. omeprazole (PriLOSEC) [address] capsule Take 20 mg by mouth every morning (before breakfast). Do not crush or chew. rivaroxaban (Xarelto) 15 MG tablet Take 1 tablet (15 mg) by mouth in the morning and 1 tablet (15 mg) before bedtime. Do all this for 21 days. (Patient taking differently: Take 20 mg by mouth daily.) 42 tablet 0 amitriptyline (Elavil) 10 MG tablet Take 2 tablets (20 mg) by mouth every evening. TAKE 1 TAB BY MOUTH AT SUPPERTIME FOR 7 DAYS, THEN TAKE 2 TABS BY MOUTH SUPPERTIME THEREAFTER 180 tablet 0 No facility-administered medications prior to visit. Past Medical History: Diagnosis Date Cancer (CMS/HCC) (HCC) Diverticula, colon Hypertension Reflex abnormality Social History Tobacco Use Smoking status: Former Smokeless tobacco: Never Substance Use Topics Alcohol use: Never Past Surgical History: Procedure Laterality Date KNEE SURGERY PROSTATECTOMY SHOULDER SURGERY Family History Problem Relation Name Age of Onset Cancer Father Objective Vitals: BP (!) 173/78 (BP Location: Right arm, Patient Position: Sitting, BP Cuff Size: Adult) Pulse 76 Ht 5' 10 (1.778 m) Wt 214 lb (97.1 kg) BMI 30.71 kg/m General Appearance: Patient is in no apparent distress. Head is normocephalic, atraumatic Cardiovascular: Regular rate and rhythm. No heart murmurs. No carotid bruit Neurologic: Mentation: Alert and oriented x 3 to person, place and time. Speech and Language: Speech and language normal Concentration and Attention: Concentration normal Memory: Memory normal Fund of Knowledge: Fund of knowledge normal Cranial Nerves: II, III, IV, V, , VII, VIII, IX, X, XI, XII examined and were intact. Motor: Strength: Strength 5 out of 5 with normal tone Alternating Movements: Normal Cogwheel Rigidity: None Tone: Tone is normal Tremor / Involuntary Movements: None Deep Tendon Reflexes: 1 out of 4 symmetrical in all four limbs. Sensory: Normal sensation upper and lower extremities Coordination: Normal coordination upper and lower extremities Gait and Station: Station is normal. Gait is normal Data Reviewed and Summarized DIAGNOSTIC TESTING CBC: Lab Results Component Value Date WBC 10.0 10/02/2021 RBC 4.40 10/02/2021 HGB 14.2 10/02/2021 MCV 92.3 10/02/2021 MCH 32.3 10/02/2021 MCHC 35.0 10/02/2021 RDW 12.7 10/02/2021 MPV 8.8 10/02/2021 CMP: Lab Results Component Value Date NA 138 10/02/2021 K 4.7 10/02/2021 CL 107 10/02/2021 CO2 22 10/02/2021 BUN 18 (H) 10/02/2021 CREATININE 1.26 07/12/2023 GLUCOSE 94 10/02/2021 PROT 7.5 09/25/2021 CALCIUM 9.3 10/02/2021 BILITOT 1.0 09/25/2021 ALKPHOS 51 09/25/2021 AST 30 09/25/2021 BMP: Lab Results Component Value Date NA 138 10/02/2021 K 4.7 10/02/2021 CL 107 10/02/2021 CO2 22 10/02/2021 BUN 18 (H) 10/02/2021 CREATININE 1.26 07/12/2023 CALCIUM 9.3 10/02/2021 GLUCOSE 94 10/02/2021 PT/INR: No results found for: PROTIME, INR PTT: No results found for: APTT, PTT[APTT} FLP: No results found for: CHLPL, TRIG, HDL, LDLCALC, LDLDIRECT TSH: No results found for: TSH VITAMIN B12: No results found for: [id number] No results found for: PHENYTOIN, PHENOBARB, VALPROATE, CBMZ No components found for: TOPIRA @RESULTINGLABINFO@ No results found for: LEVETIRACETA, FERRITIN, CRP, MARTIN, ANCA No results found for: OJ, IMMUNOGLOBUL, OLIGOBANDS No results found for: [id number], HEPCAB No results found for: CRP, ANATITER, ANCA FERRITIN: No results found for: FERRITIN ---- CTA head neck angio w and wo IV contrast Narrative: Patient Name: SEE PARIS : 1945 [facility]#: [id number] Exam Date/Time: 08/13/2023 14:52 Procedure: CT HEAD NECK ANGIO W AND WO IV CONTRAST Ordering Provider: NEWSOME JAMES Reason For Exam: Vertigo, central EXAMINATION: CTA of the head and neck with and without contrast. EXAM DATE & TIME: 08/13/2023 2:52 PM EDT INDICATION: Vertigo, central ADDITIONAL INFORMATION: 78-year-old male with vertigo presents for evaluation COMPARISON: None LIMITATIONS: None TECHNIQUE: CT angiogram of the head and neck was performed with and without intravenous contrast. Precontrast CT of the head was performed with volumetric reconstruction in the axial, coronal and sagittal planes. Subsequently, thin isotropic axial imaging was obtained through the brain and neck from the vertex to the thoracic inlet during dynamic infusion of 75 mL of intravenous Isovue 370 for evaluation of the vessels. Multiplanar and 3-D maximum intensity projection reformulations were created from the raw CT data with independent workstation software by the radiologist. These were interpreted in conjunction with the axial images to render the findings listed below. Before infusion of intravenous contrast, radiology personnel investigated the possibility of an allergic history and any history of reaction to iodinated contrast material. Dose reduction was employed with automated exposure control. FINDINGS: CT HEAD Brain: No mass or acute hemorrhage. No evidence of acute infarct. Confluent areas of periventricular and subcortical white matter hypodensity are present, in keeping with chronic ischemic microangiopathy. Ventricles: Generalized enlargement of the ventricles and sulci is noted without extracerebral collection with mass effect. Paranasal sinuses: Clear. Mastoids: Clear. Skull: The osseous calvarium is intact. Orbits: No orbital emphysema. Soft tissues: The soft tissues are unremarkable. CT ARTERIOGRAM Extracranial Circulation: Aortic arch and great vessel origins: Unremarkable. Right common and external carotid: Unremarkable. Right internal carotid: No significant stenosis identified with less than 30 percent luminal narrowing. Left common and external carotid: Unremarkable. Left internal carotid: No significant stenosis identified with less than 30 percent luminal narrowing. Vertebral arteries: Unremarkable. Other findings: No evidence of a soft tissue mass or lymphadenopathy in the neck or superior mediastinum. The lung apices are clear. Intracranial Circulation: Distal internal carotid arteries: Unremarkable. Anterior cerebral arteries: Unremarkable. Middle cerebral arteries: Unremarkable. Distal vertebral arteries: Unremarkable. Basilar artery: Unremarkable. Posterior cerebral arteries: Unremarkable. Anterior communicating artery: Unremarkable. Posterior communicating arteries: Unremarkable. Aneurysm or vascular malformation: None identified. Impression: 1. No acute intracranial abnormality. Chronic microvascular change. 2. No significant stenosis, dissection, or aneurysm in the intracranial or extracranial circulation. Report Dictated on Electronically Signed By: Bill Iyer MD Electronically Signed Date/Time: 08/16/2023 9:20 AM EDT @[email or web address]@ IMPRESSION and PLAN: Problem List Items Addressed This Visit None Visit Diagnoses Cervico-occipital neuralgia - Primary Relevant Orders External referral to Physical Therapy Vertigo Relevant Orders External referral to Physical Therapy New daily persistent headache Relevant Medications amitriptyline (Elavil) 10 MG tablet Xrays show anterolisthesis and DJD; will see Maxwell Rose for PT; Continue Amirtiptyline 20mg Still has dizziness with positional changes; will see Maxwell Rose for PT Headaches have improved with Amitriptyline 20mg. Will continue this dose. RTO for follow up 3 mos No problem-specific Assessment & Plan notes found for this encounter. KIRTI Juan CNP I spent 30 minutes caring for this patient today, reviewing labs, records, seeing the patient, documenting in the record and arranging for studies. Electronically signed by KIRTI Juan CNP on @TDNR@ at @NOWNR@ documented in this encounter [facility] 08-21-2023 Instructions KIRTI Juan CNP - 08/21/2023 10:30 AM EDT Call [facility] Physical Therapy for PT with Maxwell Rose [phone] documented in this encounter [facility] 08-05-2023 Telephone encounter Note Last ov- 07/12/23 Next ov- 08/21/23 [facility] 08-05-2023 Miscellaneous Notes Last ov- 07/12/23 Next ov- 08/21/23 documented in this encounter [facility] 07-29-2023 History of Present illness Narrative ESTABLISHED PATIENT OFFICE VISIT HISTORY OF PRESENT ILLNESS Patient presents with: Prostate Cancer See Paris is a 78 year old male who presents with for follow up regarding New problem- rising PSA LAB RESULTS Creatinine Date Value Ref Range Status 01/18/2019 1.10 0.67 - 1.17 mg/dL Final PSA Date Value 07/22/2023 4.4 ng/mL 04/08/2023 2.3 ng/mL 06/18/2022 0.32 ng/mL 07/12/2021 4.5 ng/mL 03/27/2021 3.7 ng/mL 11/18/2020 2.4 ng/mL 07/12/2020 2.4 ng/mL 02/22/2020 1.8 ng/mL 10/27/2019 1.4 NG/ML 10/20/2018 1.1 NG/ML 01/22/2017 0.5 ng/mL Color (no units) Date Value 01/17/2019 YELLOW Glucose, Urine (mg/dL) Date Value 01/17/2019 NEGATIVE Bilirubin, Urine (no units) Date Value 01/17/2019 NEGATIVE Ketones, Urine (mg/dL) Date Value 01/17/2019 NEGATIVE Specific [place], Ur (no units) Date Value 01/17/2019 1.020 pH, Urine (no units) Date Value 01/17/2019 8.5 Protein, Urine (mg/dL) Date Value 01/17/2019 NEGATIVE Nitrites Urine (no units) Date Value 01/17/2019 NEGATIVE Leukocytes Esterase (no units) Date Value 01/17/2019 NEGATIVE ALLERGIES Allergen Reactions Morphine Other: See Comments Ofloxacin Other: See Comments Percocet [Oxycodone* Unknown MEDICATIONS: amitriptyline (ELAVIL) 10 mg tablet TAKE 1 TAB BY MOUTH AT SUPPERTIME FOR 7 DAYS, THEN TAKE 2 TABS BY MOUTH SUPPERTIME THEREAFTER rivaroxaban (XARELTO) 20 mg tablet Take 20 mg by mouth daily with dinner. megestrol (MEGACE) 20 mg tablet TAKE 1 TABLET BY MOUTH TWICE A DAY bicalutamide (CASODEX) 50 mg tablet TAKE 1 TABLET BY MOUTH EVERY DAY omega 8-vrt-wur-fish oil (FISH OIL) 100-160-1,000 mg cap Take by mouth. meclizine (ANTIVERT) 25 mg tab Take 1 tablet by mouth three times daily as needed. ondansetron orally disintegrating (ZOFRAN ODT) 4 mg disintegrating tablet Take 1 tablet by mouth every 8 hours as needed. Cholecalciferol, Vitamin D3, 1,000 unit cap Take 1,000 Units by mouth once daily. calcium carbonate (CALTRATE) 600 mg calcium (1,500 mg) tab Take 1 tablet by mouth once daily. TURMERIC-HERBAL COMPLEX NO.278 ORAL Take 1 tablet by mouth once daily. amLODIPine (NORVASC) 5 mg tablet Take 5 mg by mouth once daily. doxazosin (CARDURA) 2 mg tablet Take 2 mg by mouth daily at bedtime. omeprazole (PRILOSEC) 20 mg capsule Take 40 mg by mouth daily at bedtime. REVIEW OF SYSTEMS GENERAL:no unintentional weight loss, malaise or fevers. NEUROLOGIC: pt is alert and oriented GENITOURINARY: No history of dysuria, frequency or incontinence The remainder of the ROS was reviewed and is negative. HISTORIES PAST MEDICAL HISTORY Diagnosis Date Arthritis Elevated PSA GERD (gastroesophageal reflux disease) Melanoma (HCC) Prostate cancer (HCC) No family history on file. PAST SURGICAL HISTORY Procedure Laterality Date LAPS PROSTECT RETROPUBIC RAD W/NRV SPARING ROBOT MELANOMA OF SKIN EXCISION SYN RPT PAST SURGICAL HISTORY OF removal of skin cancer from nose TOTAL HIP REPLACEMENT 09/04/2022 SOCIAL HISTORY Social History Tobacco Use Smoking status: Never Smokeless tobacco: Never Vaping Use Vaping Use: Never used Substance Use Topics Alcohol use: Yes Comment: once monthly Drug use: No PHYSICAL EXAMINATION General appearance: Well appearing, alert, in no acute distress, well-hydrated, well nourished Psych Alert and oriented to person, place and time Respiratory: no wheezing or rhonchi Genitourinary: MALE EXAM: Exam NOT Indicated 07/22/2023 PSA 4.4 06/18/2022 PSA 0.3 12/12/2021 Lupron 10/27/2021 PSA 2.0 07/28/2021 PSMA PET ++ two <1cm areas right pelvic fossa suspicious 07/12/2021 PSA 4.5 11/18/2020 PSA 2.4 07/12/2020 PSA 2.4 02/23/2020 PSA 1.8 10/27/2019 PSA 1.4 08/25/2019 PSA 1.7 10/20/2018 PSA 1.1 10/15/2017 PSA 0.6 07/30/2016: PSA: 0.4 01/16/2016: PSA: 0.3 07/12/2015: PSA: 0.3 01/03/2015: PSA: 0.29 09/13/2014: salvage IMRT complete 07/08/2014: PSA: 0.27 06/14/2014: PSA: 0.29 02/17/2014: PSA: 0.20 08/21/2013: PSA: 0.15 02/05/2008: PSA: 0.1 01/15/2008: PSA: 0.12 12/02/2007: RALP Gl 7, neg margins 06/10/2007: PSA: 6.3 (PROSCAR) Assessment and Plan: BPH/LUTS- nocturia 2x, no hematuria/dysuria, stable ED- weak erections and looses quickly, no help with PO pills in past LBP- chronic, gets steroid injection Q 3 mths Prostate cancer- s/p RALP followed salvage IMRT - PSMA PET ++, previously refused oncology referral - last Lupron 11/2021, had hot flashes and less energy, pt says it was tough but worked - recent PSA up to 4.4 so he agrees to repeat PSMA PET scan then likely Lupron next Medical Decision Making: Problems: High: Illness/injury w/ threat to life/body function Data: Unique test result(s) reviewed: 1 Unique test(s) ordered: 1 Medical Decision Making Level: 3 - Low documented in this encounter [facility] 07-12-2023 History of Present illness Narrative Images from the original note were not included. [facility] [address] [place] [address] [facility] [address] Dept: [phone] Dept Loc: [phone] Cedrick Newsome MD Thank you for your kind request for a neurological consultation on this patient. CHIEF COMPLAINT: Chief Complaint Patient presents with New Patient Dizziness Headache HISTORY OF PRESENT ILLNESS: The patient is a 78 y.o. person who presents with dizziness and headaches. He reports that he first got dizziness 7 years ago and PT got rid of it. He reports that he started having the current dizziness around [place] time. Leaning forward and coming up makes it worse. Do you have to be up to have the dizziness or can you have the dizziness when seated or lying down? Yes but mostly when he is up. When you have an attack of dizziness how long does it last? Seconds: vestibular paroxysmia, cardiogenic dizziness (Less than 2 minutes)? Yes Minutes: vertebrobasilar transient ischemic attack (TIA), vestibular migraine, panic disorder, delayed orthostatic hypotension, hypoglycemia (2 min-60 min)? No Hours: vestibular migraine, M ni re disease, toxic/metabolic (Over an hour)? No Days: vestibular migraine? Do you feel like things are moving in when you know they are actually still?No Do you have otalgia? No Do you have tinnitus? No If so, which ear? Left/Right Do you get dizzy turning your head? No Do you have trouble with dizziness getting up from a chair or from a seat? Yes Have you had falls? No Is there any vision change with the dizziness? Yes blurry Do you have headache associated with the dizziness? No Have you had hearing loss with your dizziness? No He is having frequent headaches. They started after he got neck messages in PT. PT was ordered for vertigo he reports. Occipital and upper neck area. Dull ache. Is the DARBY longer than four hours? Yes (Migraine) Photophobia? No (Migraine) Phonophobia? No (Migraine) Nausea/Vomiting? No (Migraine) Exacerbated by Movement? Yes Blurred vision all the time. (Hemicrania Continua) Autonomic Features (at least 1 of below)? (1) conjunctival injection? No (2) lacrimation? No (3) nasal congestion? No (4) rhinorrhea? No (5) ptosis? No (6) eyelid edema? No (New Daily Persistent DARBY) Clear Onset of DARBY Syndrome? No Persistent for >3 months? No Distinct starting point? No No prior DARBY history? Yes (Tension-Type DARBY) Mild-Moderate, Featureless? No >10 attacks per month? 30 min-7days? Bilateral?Yes Pressing/tightening?Yes Is the DARBY less than four hours? No Autonomic Features? No Cluster Headache (1 or more)? No 15 min to 180 min? No Ipsilateral conjunctival injection? No Ipsilateral Lacrimation? No Ipsilateral nasal congestion? No Ipsilateral Rhinorrhea? No Ipsilateral forehead and facial sweating? No Ipsilateral Miosis? No Ipsilateral Ptosis? No eyelid edema? No Paroxysmal Hemicrania (1 or more ipsilateral)? No (1) 2 min-30 min? No (2) conjunctival injection? No (3) lacrimation? No (4) nasal congestion? No (5) rhinorrhea? No (6) eyelid edema? No Short-lasting Unilateral Neuralgiform DARBY with Conjunctival Injection and Tearing? (1) 1 sec-600 s? No (2) conjunctival injection? No (3) lacrimation? No (4) nasal congestion? No (5) rhinorrhea? No (6) eyelid edema? No Hypnic DARBY? Only during sleep and causing awakening? No > 10 days per month? No > 3 months? No Age over 50? No Primary Cough DARBY? > 2 attacks? No Precipitated by coughing or other Valsalva maneuver? No 1 sec-2 hours? No Secondary cause ruled out? No Primary Exercise DARBY? > 2 attacks? No Precipitated by strenuous exercise? No Secondary cause ruled out? No Secondary causes of DARBY? Systemic Symptoms (mets, GCA, infection)? Fever? Sweats/Chills? Weight Loss? Secondary Diseases? HIV? Cancer? Chronic Infection? Chronic Immunosuppression? Neurological Symtoms and Signs (mass/structural lesion, stroke, hydrocephalus) Confusion? Focal neurological signs/symptoms? Diplopia? Transient visual obscurations? Pulsatile tinnitus? Onset: (RCVS, stroke, SAH, CVST, dissection, pituitary apoplexy, intracranial hypertension) Thunderclap? Older Age (mass, GCA) New onset after age 50? Progressive after age 50? Positional (CSF leak, mass, CVST, Sinusitis) Orthostatic? Recumbent? Worsens with change in position? Prior history (mass, infection)? / (CVST, eclampsia, RCVS, pituitary lesion, stroke)? Precipitated by valsalva (mass, Chiari)?No Cough? Sneeze? Bending? Straining? Never had triptans or meds for headaches. He is frequently taking OTC pain meds for this. He has neck pain. Upper cervical paraspinal. Flexion of the neck and turning the head makes it worse. Massage makes it worse. Past Medical History: has a past medical history of Cancer (CMS/HCC) ([facility]), Diverticula, colon, Hypertension, and Reflex abnormality. He has no past medical history of ADHD (attention deficit hyperactivity disorder), Allergic rhinitis, Anticoagulant long-term use, Anxiety, Asthma, Atrial fibrillation ([facility]), Bipolar disorder ([facility]), CAD (coronary artery disease), Carotid artery stenosis, Cerebrovascular disease, CHF (congestive heart failure) ([facility]), Chronic back pain, Chronic kidney disease, Congenital heart disease, COPD (chronic obstructive pulmonary disease) ([facility]), Depression, Emphysema of lung (HCC), Erectile dysfunction, Fibromyalgia, GERD (gastroesophageal reflux disease), Headache, Hyperlipidemia, Hyperthyroidism, Hypothyroidism, Irritable bowel syndrome, Liver disease, Neuropathy, Obesity, Osteoarthritis, Peripheral vascular disease ([facility]), Restless legs syndrome, Seizures (HCC), Sleep apnea, Substance abuse (CMS/HCC) (HCC), Type 2 diabetes mellitus without complication (CMS/HCC) ([facility]), or Urinary incontinence. Past Surgical History: has a past surgical history that includes Prostatectomy; Knee surgery; and Shoulder surgery. Medications: Current Outpatient Medications: amLODIPine (Norvasc) 2.5 MG tablet, Take 2 mg by mouth daily., Disp: , Rfl: Calcium Carb-Cholecalciferol (CALCIUM/VITAMIN D PO), Take by mouth., Disp: , Rfl: Cholecalciferol (VITAMIN D3 PO), Take by mouth daily., Disp: , Rfl: megestrol (Megace) 20 MG tablet, Take by mouth daily., Disp: , Rfl: omeprazole (PriLOSEC) [address] capsule, Take 20 mg by mouth every morning (before breakfast). Do not crush or chew., Disp: , Rfl: rivaroxaban (Xarelto) 15 MG tablet, Take 1 tablet (15 mg) by mouth in the morning and 1 tablet (15 mg) before bedtime. Do all this for 21 days. (Patient taking differently: Take 20 mg by mouth daily.), Disp: 42 tablet, Rfl: 0 amitriptyline (Elavil) 10 MG tablet, Take 1 tab po QPM suppertime for 7 days, then take 2 tabs PO QPM Suppertime thereafter, Disp: 60 tablet, Rfl: 2 predniSONE (Deltasone) 10 MG tablet, Take 5 tabs po AM the first day, take 4 tabs po AM the second day, take 3 tabs po AM the third day, take 2 tabs po AM the fourth day, and take 1 tab po AM the fifth day, Disp: 15 tablet, Rfl: 0 Allergies: Floxin otic [ofloxacin], Morphine, and Percocet [oxycodone-acetaminophen] Social History: Social History Socioeconomic History Marital status: Spouse name: Not on file Number of children: Not on file Years of education: Not on file Highest education level: Not on file Occupational History Not on file Tobacco Use Smoking status: Former Smokeless tobacco: Never Vaping Use Vaping Use: Never used Substance and Sexual Activity Alcohol use: Never Drug use: No Sexual activity: Not on file Other Topics Concern Not on file Social History Narrative Not on file Social Determinants of Health Financial Resource Strain: Not on file Food Insecurity: Not on file Transportation Needs: Not on file Physical Activity: Not on file Stress: Not on file Social Connections: Not on file Intimate Partner Violence: Not on file Housing Stability: Not on file Family History: Family History Problem Relation Name Age of Onset Cancer Father REVIEW OF SYSTEMS: Review of Systems PHYSICAL EXAM: Vitals: BP 135/73 (BP Location: Right arm, Patient Position: Sitting, BP Cuff Size: Adult) Pulse 84 Ht 5' 10 (1.778 m) Wt 214 lb 9.6 oz (97.3 kg) BMI 30.79 kg/m General Appearance: Patient is in no apparent distress. Head is normocephalic, atraumatic Cardiovascular: Regular rate and rhythm. No heart murmurs. No carotid bruit Neurologic: Mentation: Alert and oriented x 3 to person, place and time. Speech and Language: Speech and language normal Concentration and Attention: Concentration normal Memory: Memory normal Fund of Knowledge: Fund of knowledge normal Cranial Nerves: II, III, IV, V, , VII, VIII, IX, X, XI, XII tested and were intact including fundoscopic exam (optic discs) and visual field to confrontation. Motor: Strength:Strength 5 out of 5 with normal tone Alternating Movements: Normal Cogwheel Rigidity: None Tone: Tone is normal Tremor / Involuntary Movements: None Deep Tendon Reflexes: 1 out of 4 symmetrical in all four limbs. Sensory: Normal sensation upper and lower extremities Coordination: Normal coordination upper and lower extremities Gait and Station: Station is normal. Gait is normal DATA CBC: Lab Results Component Value Date WBC 10.0 10/02/2021 RBC 4.40 10/02/2021 HGB 14.2 10/02/2021 MCV 92.3 10/02/2021 MCH 32.3 10/02/2021 MCHC 35.0 10/02/2021 RDW 12.7 10/02/2021 MPV 8.8 10/02/2021 CMP: Lab Results Component Value Date NA 138 10/02/2021 K 4.7 10/02/2021 CL 107 10/02/2021 CO2 22 10/02/2021 BUN 18 (H) 10/02/2021 CREATININE 1.03 10/02/2021 GLUCOSE 94 10/02/2021 PROT 7.5 09/25/2021 CALCIUM 9.3 10/02/2021 BILITOT 1.0 09/25/2021 ALKPHOS 51 09/25/2021 AST 30 09/25/2021 BMP: Lab Results Component Value Date NA 138 10/02/2021 K 4.7 10/02/2021 CL 107 10/02/2021 CO2 22 10/02/2021 BUN 18 (H) 10/02/2021 CREATININE 1.03 10/02/2021 CALCIUM 9.3 10/02/2021 GLUCOSE 94 10/02/2021 PT/INR: No results found for: PROTIME, INR PTT: No results found for: APTT, PTT[APTT} FLP: No results found for: CHLPL, TRIG, HDL, LDLCALC, LDLDIRECT TSH: No results found for: TSH VITAMIN B12: No results found for: [id number] FERRITIN: No results found for: FERRITIN ---- No results found for: PHENYTOIN, PHENOBARB, VALPROATE, CBMZ No components found for: TOPIRANo results found for: OXCARBAZE, OXCARB Patient Name: SEE PARIS Diagnostic Radiology ACCESSION EXAM DATE/TIME PROCEDURE ORDERING PROVIDER [id number] 06/29/2020 14:14 EST CR Spine Cervical Comp DO CHURCH JOSHUA D w/ Obliques CPT code 93130 Reason For Exam (CR Spine Cervical Comp w/ Obliques) neck pain Report HISTORY neck pain Frontal lateral bilateral oblique and odontoid views of the cervical spine with lateral flexion-extension views. FINDINGS: Mild degenerative disc changes are seen with disc space narrowing especially at C6-C7 level. Hypertrophic facet degenerative changes are seen bilaterally throughout the cervical spine with no high-grade neural foraminal narrowing seen. No unusual mobility is seen with lateral flexion-extension views Report Dictated on Workstation: [id number] --- Final --- Dictating Physician: MD HEAD WILLIAM Signed Date and Time: 06/29/2020 9:04 pm Signed by: MD HEAD WILLIAM Transcribed Date and Time: 06/29/2020 9:05 Patient Name: SEE PARIS ---Diagnostic Radiology--- Exam Date/Time 11/02/2019 13:45:00 EDT Exam CR Spine Lumbosacral Complete w/ Bending Ordering Physician DO CHURCH JOSHUA D Accession Number [id number] CPT4 Codes 88970 () Reason For Exam lumbago with bilateral sciatica Report LUMBAR SPINE, FIVE VIEWS, WITH ADDITIONAL FLEXION-EXTENSION VIEWS: CLINICAL INFORMATION: Low back pain COMPARISON: None Frontal, bilateral obliques, flexion-extension and neutral lateral and coned down lumbosacral spot views of the lumbar spine were obtained. There are 5 typical lumbar vertebrae. The bone mineral density is normal. The vertebral body heights are within normal limits. Disk space narrowing is present at L1-L2, L2-L3 and L5-S1. There is 1.6 cm anterolisthesis at L5-S1. No instability is noted with flexion or extension. The facet joints are within normal limits. No fracture is noted. IMPRESSION: Arthritic changes multilevel disc space narrowing as well as 1.6 cm of anterolisthesis of L5-S1. Report Dictated on Workstation: [id number] --- Final --- Dictating Physician: DO PENA ALFRED Signed Date and Time: 11/02/2019 3:15 pm Signed by: DO PENA ALFRED Transcribed Date and Time: 11/02/2019 3:16 EXAMINATION: MRI BRAIN WO IVCON, MRA BRAIN WO IVCON, MRA CAROTID WO IVCON CLINICAL HISTORY: Dizziness x4 days TECHNIQUE: Routine noncontrast MRI brain protocol including diffusion images. Intracranial and extracranial 3D [id number] MRA. 3D maximum intensity projection images were created, reviewed and archived . MQ: [id number] COMPARISON: 01/17/[address] RESULT: BRAIN: Acute Change: No evidence of restricted diffusion indicating acute infarction Hemorrhage: No evidence of prior parenchymal hemorrhage on the gradient echo images. Mass Lesion/ Mass Effect: No evidence of an intracranial mass or extra-axial fluid collection. No significant mass effect. Chronic Change: The white matter is within normal limits of signal intensity for age. Parenchyma: No significant volume loss for age. The brain parenchyma is otherwise within normal limits of signal intensity and morphology. Ventricles: Normal caliber and morphology. Skull Base: Hypothalamic and pituitary region are grossly normal. Craniocervical junction is normal. No significant marrow replacement process. Vasculature: Major intracranial arterial structures, and dural venous sinuses show typical flow void, suggesting patency by spin echo criteria. Other: The visualized paranasal sinuses and mastoid air cells are clear. The orbits and extracranial soft tissues are unremarkable. INTRACRANIAL MRA: No evidence of an aneurysm, occlusion or stenosis of the anterior or posterior intracranial circulation. No evidence of dural venous sinus thrombosis. Extracranial MRA: Vertebral arteries are patent. No evidence of measurable or flow-limiting stenosis while the carotid bifurcations utilizing NASCET criteria IMPRESSION IMPRESSION: 1. Negative MRI of the brain. 2. Negative MRA head and neck Exhaust Tender: KELLY Transcribe Date/Time: Jan 20 2019 9:49A [employer] Echocardiography Report: Transthoracic Echo [facility] Date of service: 01/20/2019 10:43:55 AM HOSPITAL Ordering physician: JAMILA CALLOWAY Indication: Syncope Technologist: Patricia Whitten [facility] Interpreting physician: Jian Carbajal MD PATIENT: Name: SEE PARIS : 1945 Age: 73 years Gender: M Primary rhythm: sinus. Height: 177.80 cm BSA: 2.09 m Weight: 88.45 kg BMI: 28.0 kg/m Heart rate 57 bpm Blood pressure 143/60 mmHg Color Doppler was utilized to interrogate the cardiac valves assessed and spectral Doppler was utilized to determine the flow velocities and pressure gradients reported in this exam. MEASUREMENTS: Value Indexed Normal Max aortic dimension 3.5 cm Ao < 3.8 Left atrium diameter 4.1 cm (2D) Left atrial volume 58 ml (biplane A-L) 28 ml/m Whit <= 34 LV ID (diastole) 4.7 cm (2D) LV ID (systole) 3.0 cm (2D) IVS, leaflet tips 1.2 cm (2D) Posterior wall thickness 1.1 cm (2D) Left ventricular mass 99 g/m LV stroke volume 69 ml (2D biplane) LV end diastolic volume 99 ml (2D biplane) 47.5 ml/m 34<=EDVi<75 LV end systolic volume 31 ml (2D biplane) 14.6 ml/m Ejection Fraction 69 % (2D biplane) EF > 52 FINDINGS: LEFT VENTRICLE The left ventricle is normal in size. There is no left ventricular hypertrophy. Left ventricular systolic function is normal. Grade I left ventricular diastolic dysfunction. Mitral annular lateral E/e': 5.3. Mitral annular septal E/e': 7.3. Wall Motion: All scored segments are normal. RIGHT VENTRICLE The right ventricle is normal in size. Right ventricular systolic function is normal. RV systolic tissue Doppler velocity is 12.0 cm/s. Tricuspid annular displacement is 2.9 cm. Estimated right ventricular systolic pressure is not reported due to an insufficient tricuspid regurgitation signal. Estimated right atrial pressure is 3 mmHg based on IVC assessment. LEFT ATRIUM The left atrial cavity is normal in size. Pulmonary Veins: The pulmonary venous pattern showed normal systolic flow. RIGHT ATRIUM The right atrial cavity is normal in size. Inferior Vena Cava: The inferior vena cava appears normal measuring 1.3 cm. The vessel decreases greater than 50 percent with inspiration. MITRAL VALVE The mitral valve leaflets are structurally normal. There is trace mitral valve regurgitation. The pressure half time is 80 msec. The peak mitral E/A ratio is 0.86. The average mitral E/e' ratio is 6.3. The mitral flow deceleration time is 275 msec. TRICUSPID VALVE The tricuspid valve leaflets are structurally normal. There is trace tricuspid valve regurgitation. AORTIC VALVE The aortic valve cusps are structurally normal. There is no aortic valve stenosis. There is trace aortic valve regurgitation. Tricuspid aortic valve. The LVOT diameter is 2.4 cm. PULMONIC VALVE The pulmonic valve cusps are structurally normal. There is no pulmonic valve regurgitation. AORTA The visualized aorta is normal in size. Measurements - Sinus 3.4 cm. Sinotubular junction 2.8 cm. Mid ascending aorta 3.5 cm. PULMONARY ARTERIES The pulmonary arteries are unseen or not interrogated. PERICARDIUM There is no pericardial effusion. CONCLUSIONS: - Exam indication: Syncope - The left ventricle is normal in size. There is no left ventricular hypertrophy. Left ventricular systolic function is normal. EF = 69 5% (2D biplane) Grade I left ventricular diastolic dysfunction. - The right ventricle is normal in size. Right ventricular systolic function is normal. - There are no significant valvular abnormalities. - The patient has not had a prior CC echocardiographic exam for comparison. @LASTAPPOINTMENTTHISPROV@ Vascular lower extremity venous duplex right Patient Name: SEE PARIS Exam Date/Time: 04/26/2022 08:10 Procedure: VASC US LOWER EXTREMITY VENOUS DUPLEX RIGHT Ordering Provider: ARMENTA KEVIN Reason For Exam: EXAMINATION: Right lower extremity venous venous doppler. COMPARISON: None. REASON FOR STUDY: Right leg pain and swelling; History of deep venous thrombosis. TECHNIQUE: Real-time grayscale as well as supplemental color and spectral doppler examination was performed with graded compression. FINDINGS: Popliteal, posterior tibial and peroneal veins show no evidence of flow and are not compressible. Common femoral, greater saphenous vein as well as superficial femoral and gastrocnemius veins appear patent.. CONCLUSION(S): Thrombotic occlusion of the popliteal, posterior tibial and peroneal veins. Report Dictated on Electronically Signed By: Nadeem Jose Electronically Signed Date/Time: 04/26/2022 10:00 AM EST @RESULTINGLABINFO@ No results found for: LEVETIRACETA, FERRITIN, CRP, MARTIN, ANCA No results found for: OJ, IMMUNOGLOBUL, OLIGOBANDS No results found for: XRV70XR, HEPCAB No results found for: CRP, ANATITER, ANCA ASSESSMENT AND PLAN: Diagnosis Plan 1. Vertebral artery insufficiency CTA head neck angio w and wo IV contrast 2. Cervico-occipital neuralgia Creatinine, Serum XR cervical spine complete 4 to 5 views Creatinine, Serum 3. New daily persistent headache I am concerned that the headaches and vision issues began immediately after he had manipulation of the neck at PT. It is medically necessary to get CTA of the head and neck for vertebral artery tear. X-rays of neck spine. Prednisone titration and amitriptyline QPM starting at 10 mg QPM and working up to 20 mg po QPM I spent 45 minutes caring for this patient today, reviewing labs and records, seeing the patient, documenting in the record and arranging for studies. documented in this encounter [facility] 12-17-2022 History of Present illness Narrative ESTABLISHED PATIENT OFFICE VISIT HISTORY OF PRESENT ILLNESS Patient presents with: Prostate Cancer See Paris is a 77 year old male who presents with for follow up regarding New problem- recent [facility] RESULTS Creatinine Date Value Ref Range Status 01/18/2019 1.10 0.67 - 1.17 mg/dL Final PSA Date Value 06/18/2022 0.32 ng/mL 07/12/2021 4.5 ng/mL 03/27/2021 3.7 ng/mL 11/18/2020 2.4 ng/mL 07/12/2020 2.4 ng/mL 02/22/2020 1.8 ng/mL 10/27/2019 1.4 NG/ML 10/20/2018 1.1 NG/ML 01/22/2017 0.5 ng/mL Color (no units) Date Value 01/17/2019 YELLOW Glucose, Urine (mg/dL) Date Value 01/17/2019 NEGATIVE Bilirubin, Urine (no units) Date Value 01/17/2019 NEGATIVE Ketones, Urine (mg/dL) Date Value 01/17/2019 NEGATIVE Specific [place], Ur (no units) Date Value 01/17/2019 1.020 pH, Urine (no units) Date Value 01/17/2019 8.5 Protein, Urine (mg/dL) Date Value 01/17/2019 NEGATIVE Nitrites Urine (no units) Date Value 01/17/2019 NEGATIVE Leukocytes Esterase (no units) Date Value 01/17/2019 NEGATIVE ALLERGIES Allergen Reactions Morphine Other: See Comments Ofloxacin Other: See Comments Percocet [Oxycodone* Unknown MEDICATIONS: rivaroxaban (XARELTO) 20 mg tablet Take 20 mg by mouth daily with dinner. megestrol (MEGACE) 20 mg tablet TAKE 1 TABLET BY MOUTH TWICE A DAY bicalutamide (CASODEX) 50 mg tablet TAKE 1 TABLET BY MOUTH EVERY DAY omega 9-rjw-lkg-fish oil (FISH OIL) 100-160-1,000 mg cap Take by mouth. meclizine (ANTIVERT) 25 mg tab Take 1 tablet by mouth three times daily as needed. ondansetron orally disintegrating (ZOFRAN ODT) 4 mg disintegrating tablet Take 1 tablet by mouth every 8 hours as needed. Cholecalciferol, Vitamin D3, 1,000 unit cap Take 1,000 Units by mouth once daily. calcium carbonate (CALTRATE) 600 mg calcium (1,500 mg) tab Take 1 tablet by mouth once daily. TURMERIC-HERBAL COMPLEX NO.278 ORAL Take 1 tablet by mouth once daily. amLODIPine (NORVASC) 5 mg tablet Take 5 mg by mouth once daily. doxazosin (CARDURA) 2 mg tablet Take 2 mg by mouth daily at bedtime. omeprazole (PRILOSEC) 20 mg capsule Take 40 mg by mouth daily at bedtime. REVIEW OF SYSTEMS GENERAL:no unintentional weight loss, malaise or fevers. NEUROLOGIC: pt is alert and oriented GENITOURINARY: No history of dysuria, frequency or incontinence The remainder of the ROS was reviewed and is negative. HISTORIES PAST MEDICAL HISTORY Diagnosis Date Arthritis Elevated PSA GERD (gastroesophageal reflux disease) Melanoma (HCC) Prostate cancer (HCC) History reviewed. No pertinent family history. PAST SURGICAL HISTORY Procedure Laterality Date LAPS PROSTECT RETROPUBIC RAD W/NRV SPARING ROBOT MELANOMA OF SKIN EXCISION SYN RPT PAST SURGICAL HISTORY OF removal of skin cancer from nose SOCIAL HISTORY Social History Tobacco Use Smoking status: Never Smokeless tobacco: Never Vaping Use Vaping Use: Never used Substance Use Topics Alcohol use: Yes Comment: once monthly Drug use: No PHYSICAL EXAMINATION General appearance: Well appearing, alert, in no acute distress, well-hydrated, well nourished Psych Alert and oriented to person, place and time Respiratory: no wheezing or rhonchi Abdomen Genitourinary: MALE EXAM: Exam NOT Indicated 06/18/2022 PSA 0.3 12/12/2021 Lupron 10/27/2021 PSA 2.0 07/28/2021 PSMA PET ++ two <1cm areas right pelvic fossa suspicious 07/12/2021 PSA 4.5 11/18/2020 PSA 2.4 07/12/2020 PSA 2.4 02/23/2020 PSA 1.8 10/27/2019 PSA 1.4 08/25/2019 PSA 1.7 10/20/2018 PSA 1.1 10/15/2017 PSA 0.6 07/30/2016: PSA: 0.4 01/16/2016: PSA: 0.3 07/12/2015: PSA: 0.3 01/03/2015: PSA: 0.29 09/13/2014: salvage IMRT complete 07/08/2014: PSA: 0.27 06/14/2014: PSA: 0.29 02/17/2014: PSA: 0.20 08/21/2013: PSA: 0.15 02/05/2008: PSA: 0.1 01/15/2008: PSA: 0.12 12/02/2007: RALP Gl 7, neg margins 06/10/2007: PSA: 6.3 (PROSCAR) Assessment and Plan: BPH/LUTS- nocturia 2x, no hematuria/dysuria, stable ED- weak erections and looses quickly, no help with PO pills in past Prostate cancer- s/p RALP followed by salvage IMRT, followed by disease recurrence - PSMA PET ++, previously refused oncology referral - last Lupron 11/2021, had hot flashes and less energy, pt says it was tough but worked - recent PSA @ PCPs 0.6 - check PSA 4 and 8 mths Medical Decision Making: Problems: High: Illness/injury w/ threat to life/body function Data: Unique test result(s) reviewed: 1 Unique test(s) ordered: 2 Medical Decision Making Level: 4 - Moderate documented in this encounter [facility] 09-17-2022 Discharge summary Note Date/Time September 17, 2022 7:01pm [facility] Medical Records Department [address] [place] [id number] Discharge Summary 09/17/22 1900 MR#: [id number] Acct: [id number] Name: SEE PARIS Rep #:[id number] : 1945 77 From: Mike Frost MD PCP: Dr. Jermaine Church DO Status:AD M IN [facility] Date of Admission: 09/06/22 Primary Care Physician: Dr. Jermaine Church DO Reason For Visit: LEFT TOTAL HIP Diagnosis Discharge Diagnosis (1) Debility: Status: Acute Code(s): R53.81 - Other malaise (2) S/P total left hip arthroplasty: Status: Acute Code(s): Z96.642 - Presence of left artificial hip joint (3) Osteoarthritis of hip: Status: Resolved Code(s): M16.9 - Osteoarthritis of hip, unspecified (4) Prostate cancer: Status: Acute Code(s): C61 - Malignant neoplasm of prostate (5) Hypertension: Status: Chronic Code(s): I10 - Essential (primary) hypertension (6) BPH (benign prostatic hyperplasia): Status: Acute Code(s): N40.0 - Benign prostatic hyperplasia without lower urinary tract symptoms (7) GERD (gastroesophageal reflux disease): Status: Acute Code(s): K21.9 - Gastro-esophageal reflux disease without esophagitis (8) Depression: Status: Acute Code(s): F32.A - Depression, unspecified (9) History of DVT (deep vein thrombosis): Status: Acute Code(s): Z86.718 - Personal history of other venous thrombosis and embolism (10) History of pulmonary embolism: Status: Acute Code(s): Z86.711 - Personal history of pulmonary embolism Plan 77 year old male with below past medical history hospitalized for left total hiparthroplasty 09/04/[address] Magaña, admitted to TCU with debility, here forrehabilitation, strengthening, prior to discharge home with . * Debility - PT/OT. * Pain - Tylenol 1000mg q8h, Oxycodone 5-10mg q4h prn. * Bowel - Miralax 17gm daily, senna/colace 2 tablets bid, MOM 30ml po x 1 prn. * Adult immunization - Administer pneumonia vaccine, covid19 vaccine, flu vaccine as appropriate. * DVT prophylaxis - on Xarelto. * Hypertension - Amlodipine 5mg daily. * BPH - Doxazosin 1mg qhs. * Prostate cancer status post surgery, radiation chemotherapy - Megace 20mg bid. * GERD - Pantoprazole 20mg daily. * History of DVT/PE - Xarelto 20mg daily. * Nausea - Scopolamine 1mg patch TD q72h. Medications at Discharge Home Medications amlodipine 5 mg tablet 5 mg PO DAILY BP 07/11/22 cholecalciferol (vitamin D3) 10 mcg (400 unit) capsule 10 mcg PO DAILY Check with primary doctor 07/11/22 doxazosin 1 mg tablet (Cardura) 1 mg PO DAILY BPH 07/11/22 omeprazole 10 mg capsule,delayed release 10 mg PO DAILY Check with primary doctor 07/11/22 megestrol 20 mg tablet 20 mg PO BID hormone 08/22/22 rivaroxaban 20 mg tablet (Xarelto) 20 mg PO DAILY blood clots 09/04/22 scopolamine base 1 mg over 3 days transdermal patch 1 patch transdermal Q3D@1000#0 ea 09/17/22 Hospital Course Operations total hip replacement (Left.) Procedures None Summary of Care Provided Minutes Spent on Discharge: 35 Hospital Course: 77 year old male with below past medical history hospitalized for left total hiparthroplasty 09/04/[address] Magaña, admitted to TCU with debility, here forrehabilitation, strengthening, prior to discharge home with . [facility] Physical Exam Const alert General Appearance: cooperative HEENT normocephalic Eyes PERRL and EOMs intact bilaterally Neck supple, no JVD and no carotid bruits Resp normal respiratory effort, normal air movement and clear to auscultation bilaterally Cardio regular rate and regular rhythm GI normal to inspection, nondistended, normoactive bowel sounds, non-tender and non-distended Extremity normal capillary refill General Extremity: Negative for edema Skin no rashes or lesions noted General Skin Exam: no breakdown Psych affect normal Appearance: appropriate Weight / BMI Weight Weight: 95.799 kg Body Mass Index (BMI) 30.3 ABG / Lab / Microbiology Data Result Diagrams: 09/14/22 05:37 09/14/22 05:37 Microbiology: Microbiology 09/10/22 05:00 Nasal Secretion SARS-CoV-2 Antigen (Rapid) - Final 09/08/22 05:00 Nasal Secretion SARS-CoV-2 Antigen (Rapid) - Final D/C Instructions Discharge Diet: No restrictions Discharge Activity: Return to Normal Activity, May Shower and Use Walker Weight Bearing Status: Weight bearing as tolerated Call your doctor if you observe: Fever of 101 or Higher, Inability to urinate, Inability to have a bowel movement, Shortness of breath, Dizziness, Fainting spells, Swelling in the ankles, Chest pain and Uncontrolled pain Additional Instructions: Discharge home with 09/19/2022, [facility]. Please Follow Up With: Tony Magaña, DO When: As scheduled. Meaningful Use Info Meaningful Use Diagnoses (Choose all that apply): None applicable Discharge Plan Admission Admit Date/Time: 09/06/22 16:00 Primary Reason for Your Visit: Debility. Attending Provider: Mike Frost Chi Primary Care Provider: Jermaine Church Instructions Additional Instructions / Restrictions: [facility] Discharge Orders/Prescriptions Prescriptions: New scopolamine base 1 mg over 3 days Patch 3 Day 1 patch transdermal Q3D@1000 Qty: 0 0RF Continued amlodipine 5 mg tablet 5 mg PO DAILY doxazosin [Cardura] 1 mg tablet 1 mg PO DAILY omeprazole 10 mg capsule,delayed release(DR/EC) 10 mg PO DAILY cholecalciferol (vitamin D3) 10 mcg (400 unit) capsule 10 mcg PO DAILY megestrol 20 mg tablet 20 mg PO BID Label Comments: TAKE 1 TABLET BY MOUTH TWICE A DAY Xarelto 20 mg tablet 20 mg PO DAILY Label Comments: TAKE 1 TABLET BY MOUTH EVERY DAY WITH DINNER Discontinued oxycodone 5 mg tablet 5 - 10 mg PO Q4H PRN (Reason: pain) 7 Days Qty: 50 0RF Rx Instructions: pain scale 4-6: 5mg pain scale 7-10: 10mg acetaminophen 500 mg tablet 1,000 mg PO Q6H PRN (Reason: pain) Qty: 60 0RF Referrals / Follow Up: Jermaine Church DO [Primary Care Provider] - ( said she will make this appointment) Disposition Disposition (needs filled in before D/C Order can be placed): Home, Self Care 09/17/221902 <Electronically signed by Mike Frost MD> Cosigner Signature (if applicable): CC: Dr. Jermaine Church DO; Dr. Mike Frost MD~ Signed [facility] Work Phone: 1(341) 117-976504-21-[address] Frost [facility] September 07, 2022 1:07pm Note Date/Time September 07, 2022 10: 01am [facility] Medical Records Department [address] [place] [id number] Progress Note - Pharmacy 09/07/22 0946 MR#: [id number] Acct: [id number] Name: SEE PARIS Rep #:[id number] : 1945 77 From: Madyson Arredondo PCP: Dr. Jermaine Church, DO Status:AD M IN Location: [facility] TCU RX Drug Regimen Review Subjective: 77 YOM admitted to TCU on 09/06/22 S/P L-hip arthroplasty. Admitted to TCU for strengthening and rehabilitation prior to D/C home where he resides with his . Objective: Allergies acetaminophen [From Percocet] Allergy (Verified 09/04/22 09:05) Other Dizziness hydrocodone [From Vicodin] Allergy (Verified 09/04/22 09:05) Other dizziness morphine Allergy (Verified 09/04/22 09:05) Other Dizziness oxycodone [From Percocet] Allergy (Verified 09/04/22 09:05) Other Dizziness Current Medications Generic Name Dose Route Start Last Admin Trade Name Freq PRN Reason Stop Dose Admin Amlodipine Besylate 5 mg 09/07/22 08:00 09/07/22 09:11 Amlodipine 5 Mg Tablet PO 5 mg DAILY@0800 VICTORIANO Administration Doxazosin Mesylate 1 mg 09/06/22 22:00 09/06/22 20:04 Doxazosin 1 Mg Tablet PO 1 mg QHS VICTORIANO Administration Lorazepam 0.5 mg 09/06/22 21:49 09/07/22 09:10 Lorazepam 0.5 Mg Tablet PO 0.5 mg Q6H PRN PRN Administration ANXIETY/RESTLESSNESS/SLEEP Magnesium Hydroxide 30 ml 09/06/22 19:28 Magnesium Hydroxide 30 Ml Udc PO X1 PRN CONSTIPATION Megestrol Acetate 20 mg 09/07/22 07:57 Megestrol Acetate 20 Mg Tablet PO BID PRN PRN Hot flashes Oxycodone HCl 10 mg 09/06/22 21:48 Oxycodone 5 Mg Tablet PO Q4H PRN PRN Pain Score 6-10 Pantoprazole Sodium 20 mg 09/07/22 06:00 09/07/22 05:07 Pantoprazole Sodium 20 Mg Tablet PO 20 mg DAILY VICTORIANO Administration Polyethylene Glycol 17 gm 09/07/22 06:00 09/07/22 05:07 Polyethylene Glycol 3350 17 Gm Packet PO 17 gm DAILY VICTORIANO Administration Rivaroxaban 20 mg 09/06/22 17:00 09/06/22 18:40 Rivaroxaban 20 Mg Tablet PO 20 mg SUPPER VICTORIANO Administration Scopolamine HBr 1 patch 09/07/22 10:00 09/07/22 09:11 Scopolamine 1mg/72hr Patch TD 1 patch Q3D@1000 VICTORIANO Administration Senna/Docusate Sodium 2 tablet 09/06/22 19:30 09/07/22 05:08 Senna/Docusate Sodium 1 Tablet PO 2 tablet BID VICTORIANO Administration Tramadol HCl 50 mg 09/06/22 21:49 09/07/22 09:10 Tramadol 50 Mg Tablet PO 50 mg Q6H PRN PRN Administration Pain Score 1-5 Tuberculin PPD 0.1 ml 09/07/22 10:00 Tuberculin,Purif.Prot.Deriv. 50 Tu/Ml Vial ID 09/07/22 10:01 X1 ONE Tuberculin PPD 0.1 ml 09/14/22 10:00 Tuberculin,Purif.Prot.Deriv. 50 Tu/Ml Vial ID 09/14/22 10:01 X1 ONE Problem List (Last Reviewed 09/06/22 @ 19:[address] Mike Frost MD) History of pulmonary embolism (Acute) History of DVT (deep vein thrombosis) (Acute) Depression (Acute) GERD (gastroesophageal reflux disease) (Acute) BPH (benign prostatic hyperplasia) (Acute) Hypertension (Chronic) Debility (Acute) S/P total left hip arthroplasty (Acute) Osteoarthritis of hip (Acute) Prostate cancer (Acute) Vital Signs Temp Pulse Resp BP Pulse Ox O2 Del Method 98.2 F 75 16 139/62 H 98 Room Air 09/06/22 16:25 09/06/22 22:00 09/06/22 22:00 09/06/22 16:25 09/06/22 22:00 09/06/22 22:00 Oxygen Delivery Method Room Air Weight: 96.2 kg Body Mass Index (BMI) 30.4 Sodium 137 mmol/L (136-145) 09/07/22 05:32 Potassium 3.7 mmol/L (3.5-5.1) 09/07/22 05:32 Chloride 111 mmol/L (98-107) H 09/07/22 05:32 Carbon Dioxide 23.0 mmol/L (21.0-32.0) 09/07/22 05:32 Anion Gap 3 (5-15) L 09/07/22 05:32 BUN 16 mg/dL (7-18) 09/07/22 05:32 Creatinine 0.93 mg/dL (0.70-1.30) 09/07/22 05:32 Est GFR (MDRD) Af Amer 101 mL/min (>60) 09/07/22 05:32 Est GFR (MDRD) Non-Af 84 mL/min (>60) 09/07/22 05:32 BUN/Creatinine Ratio 17.2 RATIO (10-20) 09/07/22 05:32 Glucose 104 mg/dL (74-106) 09/07/22 05:32 Assessment/Plan: 1. Pain: Oxycodone 10mg PO Q4h PRn Pain 6-10, Tramadol 50mg PO Q6h PRN Pain 1-5.Please continue to monitor for increased/decreased S/S pain, PRN medication usage, respiratory depression, oversedation, and constipation with narcotic medications. -To date, the patient has sed 1 dose of oxycodone, and 1 dose of tramadol. Pre-medication pain scores rated 4-9/10, post medication scores rated 0-5. Pain appears controlled at this time. 2. DVT/PE History: Xarelto 20mg PO Daily w/ supper. Please continue to monitor H/H (Hgb 10.9, Hct 33.8), S/S bleeding/bruising, S/S repeat clot. 3. HTN: Norvasc 5mg PO daily. Please continue to monitor for swelling, BP (last 139/62). 4. BPH: Doxazosin 1mg PO QHS. Please continue to monitor for urinary retention, BP. 5. GERD: Protonix 20mg PO Daily. Please continue to monitor for S/S GERD exacerbation, stomach upset, nausea. Please also encourage non-pharmacologic treatments also to help minimize GERD flare-ups. 6. Prostate Cancer: Megace 20mg PO BID PRN. Per home medication list, pt to be on medication twice daily scheduled, not PRN. Please evaluate if medication actually supposed to be scheduled, thank you. 7. Nausea: Scopolamine Patch Q72h. Please continue to monitor for medication effectiveness, local site irritation, drowsiness. 8. Bowel: Miralax 17g PO Daily, Senna/Docusate 2 tab PO BID, MOM 30mL PO x1 PRN.Please continue to monitor for increased/decreased constipation and/or diarrhea. - The patient has not had a documented BM, but pt has been admitted <48hrs. Assessment/Plan for indications treated with psychotropic medications: 9. Anxiety/Agitation: Lorazepam 0.5mg PO Q6h PRN. Please evaluate use to determine if a GDR is clinically indicated, thank you. Please monitor for oversedation, especially given concomitant narcotic use. - To date, the patient has used 2 doses of medication. Medical chart and medication regimen reviewed. The following medication irregularities or issues were identified: 1.Prostate Cancer: Megace 20mg PO BID PRN. Per home medication list, pt to be on medication twice daily scheduled, not PRN. Please evaluate if medication actually supposed to be scheduled, thank you. 2. Anxiety/Agitation: Lorazepam 0.5mg PO Q6h PRN. Please evaluate use to determine if a GDR is clinically indicated, thank you. Date of Note:: 09/07/22 09/07/22 1056 <Electronically signed by Madyson Arredondo > Madyson Arredondo Cosigner Signature (if applicable): 09/07/22 1307 <Electronically signed by Mike Frost MD> CC: ~ Signed [facility] Work Phone: 1(616) 332-278604-20-2023 History and physical note Author Dr. Frost [facility] September 06, 2022 7:28pm Note Date/Time September 06, 2022 7:2 4pm [facility] Medical Records Department [address] [place] [address] History & Physical Exam 09/06/221918 MR#: [id number] Acct: [id number] Name: SEE PARIS Rep #:[id number] : 1945 77 From: Mike Frost MD PCP: Dr. Jermaine Church, DO Status:AD M IN Location: [facility]-1 HPI - General General Date of Admission: 09/06/22 Date of Service: 09/06/22 Chief Complaint: Here for rehabilitation. HPI Narrative SEE PARIS, is a 77 Male who presents with followin09/04/2022 Admit to [facility]. 09/04/[address] Dr[address] Magaña performed CT guided Makoplasty assisted left total hip arthroplasty. 09/05/2022 Mild indigestion, voiding urine spontaneously. Pain control. Colace, Miralax for constipation. PT/OT for debility. Xarelto for DVT prophylaxis AND history of DVT/PE. Doxazosin, Amlodipine, PRN Hydralazine for hypertension. Prostate cancer treated with surgery, radiation, chemotherapy. 09/05/2022 Patient prefers SNF prior to discharge home. 09/06/2022 Admit to TCU with debility, here for rehabiltiation, strengthening, prior to discharge home with . PFSH Medical History Arthritis DVT (deep venous thrombosis) GERD (gastroesophageal reflux disease) History of chemotherapy History of prostate cancer Hx of blood clots Hx of radiation therapy Non-smoker Home Medications amlodipine 5 mg tablet 5 mg PO DAILY BP 07/11/22 [History Last Taken 09/03/22] cholecalciferol (vitamin D3) 10 mcg (400 unit) capsule 10 mcg PO DAILY Check with primary doctor 07/11/22 [History Last Taken 09/03/22] doxazosin 1 mg tablet (Cardura) 1 mg PO DAILY BPH 07/11/22 [History Last Taken 09/03/22] omeprazole 10 mg capsule,delayed release 10 mg PO DAILY Check with primary doctor 07/11/22 [History Last Taken 09/03/22] megestrol 20 mg tablet 20 mg PO BID hormone 08/22/22 [History Last Taken 09/03/22] rivaroxaban 20 mg tablet (Xarelto) 20 mg PO DAILY blood clots 09/04/22 [History Last Taken 09/01/22 18:00] oxycodone 5 mg tablet 5 - 10 mg PO Q4H PRN pain 7 days #50 tabs 09/05/22 [Rx Last Taken Unknown] acetaminophen 500 mg tablet 1,000 mg PO Q6H PRN pain #60 tabs 09/06/22 [Rx Last Taken Unknown] Allergy/AdvReac Type Severity Reaction Status Date / Time acetaminophen [From Percocet] Allergy Other Verified 09/04/22 09:05 hydrocodone [From Vicodin] Allergy Other Verified 09/04/22 09:05 morphine Allergy Other Verified 09/04/22 09:05 oxycodone [From Percocet] Allergy Other Verified 09/04/22 09:05 Surgical History (Updated 09/06/22 @ 19:[address] Mike Frost MD) History of total left hip arthroplasty Hx of prostatectomy Social History (Updated 09/06/22 @ 19:[address] Mike Frost MD) household members: spouse Smoking Status: Never smoker alcohol intake: never substance use type: does not use ROS Constitutional Constitutional: Denies chills, fever(s) or weight gain ENT HEENT: Denies headache(s), nasal congestion or nasal discharge Cardiovascular Cardiovascular: Denies chest pain or palpitations Respiratory/Chest Respiratory/Chest: Denies cough, excessive phlegm production or shortness of breath with exertion Gastrointestinal Gastrointestinal: Denies abdominal pain, nausea or vomiting Genitourinary Genitourinary: Denies dysuria Musculoskeletal Musculoskeletal: Denies joint pain or joint swelling Integumentary Integumentary: Denies rash or wounds Neurologic Neurologic: Denies focal weakness, numbness or tingling Psychiatric Psychiatric: Denies anxiety, auditory hallucinations, depression, homicidal ideation or suicidal ideation Vital Signs Vital Signs Vital Signs: 09/06/22 16:25 Temperature 98.2 F Temperature Source Temporal Pulse Rate 76 Respiratory Rate 16 Blood Pressure 139/62 H Blood Pressure Mean 87 Blood Pressure Source Monitor Blood Pressure Position Sitting Blood Pressure Location Right Arm Pulse Ox 97 Oxygen Delivery Method Room Air Weight Weight: 96.2 kg Body Mass Index (BMI) 30.4 Physical Exam Const alert General Appearance: cooperative HEENT normocephalic Eyes PERRL and EOMs intact bilaterally Neck supple, no JVD and no carotid bruits Resp normal respiratory effort, normal air movement and clear to auscultation bilaterally Cardio regular rate and regular rhythm GI normal to inspection, nondistended, normoactive bowel sounds, non-tender and non-distended Extremity normal capillary refill General Extremity: Negative for edema Skin no rashes or lesions noted General Skin Exam: no breakdown Psych affect normal Appearance: appropriate Assessment & Plan Assessment/Plan (1) Debility: (2) S/P total left hip arthroplasty: (3) Osteoarthritis of hip: (4) Prostate cancer: (5) Hypertension: (6) BPH (benign prostatic hyperplasia): (7) GERD (gastroesophageal reflux disease): (8) Depression: (9) History of DVT (deep vein thrombosis): (10) History of pulmonary embolism: PLAN: Plan 77 year old male with below past medical history hospitalized for left total hiparthroplasty 09/04/[address] Magaña, admitted to TCU with debility, here forrehabilitation, strengthening, prior to discharge home with . * Debility - PT/OT. * Pain - Tylenol 1000mg q8h, Oxycodone 5-10mg q4h prn. * Bowel - Miralax 17gm daily, senna/colace 2 tablets bid, MOM 30ml po x 1 prn. * Adult immunization - Administer pneumonia vaccine, covid19 vaccine, flu vaccine as appropriate. * DVT prophylaxis - on Xarelto. * Hypertension - Amlodipine 5mg daily. * BPH - Doxazosin 1mg qhs. * Prostate cancer status post surgery, radiation chemotherapy - Megace 20mg bid. * GERD - Pantoprazole 20mg daily. * History of DVT/PE - Xarelto 20mg daily. * Nausea - Scopolamine 1mg patch TD q72h. 09/06/221927 <Electronically signed by Mike Frost MD> Cosigner Signature (if applicable): CC: Dr. Jermaine Church DO; Dr. Mike Frost MD~ Signed [facility] Work Phone: [phone]) 926-363904-20-2023 Discharge summary Author Kari [facility] September 06, 2022 3:21pm Note Date/Time September 06, 2022 12: 11pm [facility] Medical Records Department [address] [place] [address] Discharge Summary 09/06/22 1206 MR#: [id number] Acct: [id number] Name: SEE PARIS Rep #:[id number] : 1945 77 From: Kari PAN PCP: Dr. Jermaine Church DO Status:AD M IN Location: [facility] [id number] Providers Date of Admission: 09/04/22 Date of Discharge: 09/06/22 Primary Care Physician: Dr. Jermaine Church DO Consultations 09/04/22 13:19 Consult: Hospitalist Routine Consulting Provider: Miranda Chappell Reason for Consult: medical management EMERGENT Consult: No MD Notified: Yes Date Notified: 09/04/22 Time Notified: 15:33 Method of Notification: Text Reason For Visit: LT TOTAL HIP W YANNI Diagnosis Discharge Diagnosis (1) Osteoarthritis of hip: Status: Acute Code(s): M16.9 - Osteoarthritis of hip, unspecified Medications at Discharge Home Medications amlodipine 5 mg tablet 5 mg PO DAILY Check with primary doctor 07/11/22 cholecalciferol (vitamin D3) 10 mcg (400 unit) capsule 10 mcg PO DAILY Check with primary doctor 07/11/22 doxazosin 1 mg tablet (Cardura) 1 mg PO DAILY Check with primary doctor 07/11/22 omeprazole 10 mg capsule,delayed release 10 mg PO DAILY Check with primary doctor 07/11/22 megestrol 20 mg tablet 20 mg PO BID Check with primary doctor 08/22/22 rivaroxaban 20 mg tablet (Xarelto) 20 mg PO DAILY blood clots 09/04/22 oxycodone 5 mg tablet 5 - 10 mg PO Q4H PRN pain 7 days #50 tabs 09/05/22 acetaminophen 500 mg tablet 1,000 mg PO Q6H PRN pain #60 tabs 09/06/22 Hospital Course Operations total hip replacement (Left) Summary of Care Provided Hospital Course: The patient is a 77 year old male who underwent a CT-guided Makoplasty assisted left total hip arthroplasty on 09/04/2022 without any intraoperative complications. He has had long-standing arthrosis of the hip and has failed conservative treatment and wished to undergo the elective procedure. He underwent the procedure without any intraoperative complication and did receive antibiotics which were discontinued within 23 hours postoperatively. His vital signs remained stable postoperatively as well as his hemoglobin and hematocrit and he did not require any blood transfusion. Seen by physical therapy who helped progress ambulation and he was started on mechanical and re-started on chemical DVT prophylaxis in the form of SCDs, ALLYN hose and Xarelto 20mg daily. Will be transferred to the TCU when bed is available and be in physical therapy there. Will follow-up in the office 2 weeks post-op for staple removal and woundcheck. Physical Exam Narrative Patient was seen and examined today. He is doing well overall. He states that his pain is well controlled. Denies fevers, chills, nausea, vomiting, shortness of breath or chest pain. He states he has not had a bowel movement, but has beengiven Miralax and a stool softener. He has worked with PT and they had him ambulating the unit with a walker and he states that this went well. Const alert, oriented x3 and no apparent distress General Appearance: cooperative Extremity Extremity Narrative: Upon inspection of the left hip there is a dressing covering the incisional sitethat is clean, dry and intact. No ecchymosis noted. TTP surrounding the incisionsite, no signs of infection. Able to plantarflex, dorsiflex and wiggle toes. Soft compartments. Negative Homans. Palpable pedal pulses. Weight / BMI Weight Weight: 206 lb 12.697 oz Body Mass Index (BMI) 29.6 ABG / Lab / Microbiology Data Result Diagrams: 09/06/22 05:55 09/05/22 06:20 Laboratory: Laboratory Results - last 24 hr 09/06/22 05:55: WBC 9.8, RBC 3.38 L, Hgb 11.2 L, Hct 33.5 L, MCV 99.1 H, MCH 33.1 H, MCHC 33.4, RDW Std Deviation 47.6 H, RDW Coeff of Angelica 13.2, Plt Count 126 L, MPV 8.9 Microbiology: Microbiology 09/06/22 11:10 Nasal Secretion SARS-CoV-2 Antigen (Rapid) - Final 08/22/22 13:18 Nasal Secretion Nasal Screen MRSA/MSSA - Final D/C Instructions Discharge Diet: No restrictions Call your doctor if you observe: Shortness of breath and Chest pain Additional Dressing/Incision Instructions: Do not shower 72hrs. Begin daily showering warm water antibacterial soap postop day #3( 72hrs Post-operatively) and then daily. Leave the dressing on for 72 hours postoperatively then may remove prior to first shower and change dressing daily after this until no drainage for 2 consecutive days then may leave open to air. Follow hip precautions that were reviewed in hospital. Wear compression stockings, may remove at night. Start physical therapy as directed in hospital. Follow prescriptions instructions do not take any other pain medication or differ dosing without consulting your physician. Do not take oral NSAIDs until blood thinner has been completed , then may begin the day after completion if needed .Call Dr. Magaña's office with any concerns. Please Follow Up With: Tony Magaña DO When: 2 weeks Meaningful Use Info Meaningful Use Diagnoses (Choose all that apply): None applicable Discharge Plan Admission Admit Date/Time: 09/04/22 08:05 Primary Reason for Your Visit: Left total hip arthroplasty Attending Provider: Tony Magaña Primary Care Provider: Jermaine Church Consulting Providers: Renato Quintana Discharge Orders/Prescriptions Prescriptions: New oxycodone 5 mg tablet 5 - 10 mg PO Q4H PRN (Reason: pain) 7 Days Qty: 50 0RF acetaminophen 500 mg tablet 1,000 mg PO Q6H PRN (Reason: pain) Qty: 60 0RF Continued amlodipine 5 mg tablet 5 mg PO DAILY doxazosin [Cardura] 1 mg tablet 1 mg PO DAILY omeprazole 10 mg capsule,delayed release(DR/EC) 10 mg PO DAILY cholecalciferol (vitamin D3) 10 mcg (400 unit) capsule 10 mcg PO DAILY megestrol 20 mg tablet 20 mg PO BID Label Comments: TAKE 1 TABLET BY MOUTH TWICE A DAY Xarelto 20 mg tablet 20 mg PO DAILY Label Comments: TAKE 1 TABLET BY MOUTH EVERY DAY WITH DINNER Other Ambulatory Orders: Occupational Therapy Eval (Routine) Location: None Selected Ordered By: Kari PAN Physical Therapy Evaluation (Routine) Location: None Selected Ordered By: Kari PAN Referrals / Follow Up: Jermaine Church DO [Primary Care Provider] - Disposition Disposition (needs filled in before D/C Order can be placed): [facility] 09/06/22 1521 <Electronically signed by Kari PAN> Cosigner Signature (if applicable): CC: MAXIM Osorio; Dr. Jermaine Church DO~ Signed [facility] Work Phone: [phone]) 349-452204-19-[address] Quintana [facility] September 05, 2022 1:18pm Note Date/Time September 05, 2022 7:5 0am [facility] Medical Records Department [address] [place] [address] Progress Note - Hospitalist 09/05/22 0750 MR#: [id number] Acct: [id number] Name: SEE PARIS Rep #:[id number] : 1945 77 From: Renato Elliott PCP: Dr. Jermaine Church, DO Status:AD M IN Location: [facility] [id number] Reason for Visit Reason for Visit: Diagnoses Osteoarthritis of hip, unspecified (09/04/22) Encounter for other preprocedural examination (09/04/22) Follow-up perioperative left hip total arthroplasty. Subjective Subjective Patient has mild indigestion. Last BM, 1 day before yesterday. Voiding urine spontaneously. No fever. Objective Data Objective Data Vital Signs: Vital Signs Temp Pulse Resp BP Pulse Ox O2 Del Method O2 Flow Rate 98.6 F 68 16 135/65 H 98 Room Air 4 09/05/22 02:12 09/05/22 02:12 09/05/22 02:12 09/05/22 02:12 09/05/22 02:12 09/05/22 02:12 09/04/22 14:15 Oxygen Flow Rate (L/min) 4 Oxygen Delivery Method Room Air Weight: 206 lb 12.697 oz Body Mass Index (BMI) 29.6 Intake & Output: Intake and Output for Last 24 Hours 09/03/22 09/04/22 09/05/22 23:59 23:59 23:59 Intake Total 3432 / 3432 1050 / 1050 Output Total 450 / 750 1000 / 1000 Balance 2982 / 2682 50 / 50 Lab / Micro Data Result Diagrams: 09/05/22 06:20 09/05/22 06:20 Labs: Laboratory Results - last 24 hr 09/04/22 08:39: POC Glucose 151 H 09/04/22 09:39: POC PT 12.2, INR 1.1 09/05/22 06:20: WBC 11.8 H, RBC 3.61 L, Hgb 11.7 L, Hct 35.0 L, MCV 97.0 H, MCH 32.4 H, MCHC 33.4, RDW Std Deviation 45.1 H, RDW Coeff of Angelica 12.7, Plt Count 132 L, MPV 9.2 Micro: Microbiology 08/22/22 13:18 Nasal Secretion Nasal Screen MRSA/MSSA - Final Radiography Diagnostic Testing: Radiology Impression Hip X-Ray 09/04/22 13:34 IMPRESSION: Placement of total hip arthroplasty in anatomic alignment without complications. Electronically Signed: Nicola Valentin, at 13:57 EDT , Physical Exam Narrative Seen and examined. Patient denies history of chronic heart disease or lung disease. No previous stroke. Does not have chest pain or shortness of breath. Mild pain over left hip operative region. Patient had PT and OT in the morning. Physical exam General: Alert, Oriented x3, Cooperative HEENT: Atraumatic, PERRLA, EOMI, Normocephalic Oral: Oral mucosa moist. No Gingival or Mucosal Lesions/ Ulcerations Neck: Supple, No JVD, Negative Carotid Bruits Lungs: Air entry diminished in bilateral lung bases. No crepitation/rhonchi Cardiovascular: Regular rate, Regular Rhythm, Normal S1, Normal S2, No murmurs Abdomen: Bowel Sounds Present, Soft, Non Tender, Non-Distended : Voiding urine spontaneously. No dysuria. No renal angle tenderness. No suprapubic tenderness. Extremities: No edema, Capillary Refill Less than 3 Seconds Skin: Left hip surgical dressing is dry. No hematoma or bruise or bleeding. Mild deep tenderness. Musculoskeletal: No Tenderness to Palpation of Joints or Extremities Neurological: Cranial nerves II-XII grossly intact, DTR 2+/4 and Symmetrical, Neuro grossly intact Psych/Mental Status: Normal Affect, Appropriate. Assessment & Plan Assessment/Plan (1) Osteoarthritis of hip: PLAN: Plan The patient is a 77 y/o M w/ PMHx: GERD, Hx VTE, Hx Prostate CA s/p prostatectomy/radiation/chemotherapy, OA, GERD who presents to the [facility] on 09/04/22with history of severe L hip DJD admitted per Dr. Magaña for CT-guided Makoplasty assisted left total hip arthroplasty. #1. Perioperative management of severe Osteoarthritis, left hip status post CT- guided MAKOplasty assisted left total hip arthroplasty: Patient was admitted forperioperative care after elective surgery. Pain control. Patient spontaneouslyvoided urine. Had not bowel movement for 1 day. On stool softener. MiraLAX added. Mild indigestion on Mylanta. PT OT evaluation and management. Xarelto for DVT prophylaxis. Patient had dizziness/nausea or other side effects of opioids medication during previous surgical procedure. #2. History of VTE: Patient with history DVT, PE, Xarelto resumed as mentioned above. #3. Hypertension: BP is in normal range 122/69. Continue home regimen including doxazosin, amlodipine, PRN hydralazine. #4. History of prostate cancer with BPH: Status post prostatectomy/radiation/chemotherapy. Continue doxazosin and megestrol. Patient voiding urine spontaneously. No acute complaint of dysuria or new lowerurinary tract symptoms. Follow-up with urology and oncology as scheduled. #5. GERD: Continue patient home omeprazole regimen. #6. DVT prophylaxis: As noted resume patient home Xarelto regimen once cleared by orthopedic surgery given recent OR. Patient prefers going to SNF. The patient is medically stable for discharge to home. Charges/Coding Visit Charges Inpatient E&M: 60375 Subs Hosp L2 09/05/22 1316 <Electronically signed by Renato Quintana MD> Cosigner Signature (if applicable): CC: ~ Signed [facility] Work Phone: [phone]) [phone] Magaña [facility] September 05, 2022 12:34pm Note Date/Time September 05, 2022 12: 34pm [facility] Medical Records Department [address] [place] [address] Progress Note - Orthopedic 09/05/22 1231 MR#: [id number] Acct: [id number] Name: SEE PARIS Rep #:[id number] : 1945 77 From: Tony Magaña DO PCP: Dr. Jermaine Church DO Status:AD M IN Location: [place] [address] Subjective Subjective Seen and examined doing well pain controlled denies fevers chills nausea vomiting shortness of breath or chest pain Objective Data Objective Data Vital Signs: Vital Signs Temp Pulse Resp BP Pulse Ox O2 Del Method O2 Flow Rate 97.9 F 64 16 122/69 H 94 Room Air 4 09/05/22 08:15 09/05/22 08:15 09/05/22 08:15 09/05/22 08:15 09/05/22 09:23 09/05/22 08:15 09/04/22 14:15 Oxygen Flow Rate (L/min) 4 Oxygen Delivery Method Room Air Weight: 206 lb 12.697 oz Body Mass Index (BMI) 29.6 Intake & Output: Intake and Output for Last 24 Hours 09/03/22 09/04/22 09/05/22 23:59 23:59 23:59 Intake Total 3432 / 3432 1951.25 / 195.25 Output Total 450 / 750 1150 / 1150 Balance 2982 / 2682 801.25 / 801.25 Lab / Micro Data Result Diagrams: 09/05/22 06:20 09/05/22 06:20 Labs: Laboratory Results - last 24 hr 09/05/22 06:20: WBC 11.8 H, RBC 3.61 L, Hgb 11.7 L, Hct 35.0 L, MCV 97.0 H, MCH 32.4 H, MCHC 33.4, RDW Std Deviation 45.1 H, RDW Coeff of Angelica 12.7, Plt Count 132 L, MPV 9.2 09/05/22 06:20: Sodium 137, Potassium 4.3, Chloride 112 H, Carbon Dioxide 21.0, Anion Gap 4 L, BUN 17, Creatinine 1.18, Estim Creat Clear Calc 54.13, Est GFR (MDRD) Af Amer 77, Est GFR (MDRD) Non-Af 64, BUN/Creatinine Ratio 14.4, Glucose 159 H, Calcium 8.6 Micro: Microbiology 08/22/22 13:18 Nasal Secretion Nasal Screen MRSA/MSSA - Final Radiography Diagnostic Testing: Radiology Impression Hip X-Ray 09/04/22 13:34 IMPRESSION: Placement of total hip arthroplasty in anatomic alignment without complications. Electronically Signed: Nicola Valentin, at 13:57 EDT , Physical Exam Const alert, oriented x3 and no apparent distress General Appearance: cooperative Extremity Extremity Narrative: Dressing clean dry intact compartment soft neurovascular intact EHL tibialis anterior gastrocsoleus intact sensation light touch 2 out of 4 pedal pulse left lower extremity Assessment & Plan Assessment/Plan (1) S/P total left hip arthroplasty: PLAN: Plan Postop day #1 left total hip arthroplasty doing well pain controlled Resumed Xarelto 20 mg daily preoperative dose PT OT weightbearing as tolerated with hip precautions Pain control with oxycodone and Tylenol Dressing to be changed 09/07/2022 for the first time prior to first shower then incision should be cleaned daily with antibacterial soap and warm water and new dressing applied daily at that point. Follow-up in the office 2 weeks Discharge to TCU tomorrow when bed available 09/05/22 1234 <Electronically signed by Tony Magaña DO> Cosigner Signature (if applicable): CC: ~ Signed [facility] Work Phone: 1(232) 689-488104-19-[address] Franklin [facility] September 05, 2022 12:03am Note Date/Time September 04, 2022 11: 44pm [facility] Medical Records Department [address] [place] [address] Progress Note - Hospitalist 09/04/22 2339 MR#: [id number] Acct: [id number] Name: SEE PARIS Rep #:[id number] : 1945 77 From: Jazmyne Franklin MD PCP: Dr. Jermaine Church, DO Status:AD M IN Location: [place] [id number] Reason for Visit Reason for Visit: Diagnoses Encounter for other preprocedural examination (09/04/22) Subjective Subjective Unfortunately upon attempted evaluation patient sleeping, discussed with nursingstaff and will defer discussions with patient as the note has been clinically stable with no acute complaints or concerns. Objective Data Objective Data Examination deferred as patient sleeping, no acute concerns per nursing staff orpatient complaints that acutely need evaluated. Vital Signs: Vital Signs Temp Pulse Resp BP Pulse Ox O2 Del Method O2 Flow Rate 98.5 F 76 16 139/73 H 95 Room Air 4 09/04/22 22:06 09/04/22 22:06 09/04/22 22:06 09/04/22 22:06 09/04/22 22:06 09/04/22 22:06 09/04/22 14:15 Oxygen Flow Rate (L/min) 4 Oxygen Delivery Method Room Air Weight: 206 lb 12.697 oz Body Mass Index (BMI) 29.6 Intake & Output: Intake and Output for Last 24 Hours 09/02/22 09/03/22 09/04/22 23:59 23:59 23:59 Intake Total 3432 / 3432 Output Total 450 / 450 Balance 2982 / 2982 Lab / Micro Data Result Diagrams: 08/22/22 13:18 08/22/22 13:18 Labs: Laboratory Results - last 24 hr 09/04/22 08:39: POC Glucose 151 H 09/04/22 09:39: POC PT 12.2, INR 1.1 Micro: Microbiology 08/22/22 13:18 Nasal Secretion Nasal Screen MRSA/MSSA - Final Radiography Diagnostic Testing: Radiology Impression Hip X-Ray 09/04/22 13:34 IMPRESSION: Placement of total hip arthroplasty in anatomic alignment without complications. Electronically Signed: Nicola Valentin, at 13:57 EDT , Assessment & Plan Assessment/Plan (1) Osteoarthritis of hip: PLAN: Plan The patient is a 77 y/o M w/ PMHx: GERD, Hx VTE, Hx Prostate CA s/p prostatectomy/radiation/chemotherapy, OA, GERD who presents to the [facility] on 09/04/22 with history of severe L hip DJD admitted per Dr. Magaña for CT-guided Makoplasty assisted left total hip arthroplasty. #1. Severe Osteoarthritis, left hip: Failed conservative therapies and treatments, admitted per Dr. Magaña for planned 09/04/22 CT-guided Makoplasty assisted left total hip arthroplasty, post-operative pain management, bowel regimen, DVT Prophylaxis, PT/OT/CM per Orthopedic surgery discretion. #2. History of VTE: Patient with history DVT, PE, resume patient home Xarelto regimen once cleared by surgery given recent OR. #3. Hypertension: Continue home regimen including doxazosin, amlodipine, PRN hydralazine. #4. History of prostate cancer w/ BPH: Status post prostatectomy/radiation/chemotherapy all documented in the chart, unclear if in remission, will continue doxazosin and megestrol home regimen, encourage continued follow-up with oncology/urology as previously arranged. #5. GERD: Continue patient home omeprazole regimen. #6. DVT prophylaxis: As noted resume patient home Xarelto regimen once cleared by orthopedic surgery given recent OR. Unfortunately evaluation delayed until near midnight, patient sleeping, comfortable appearing thus discussions and examination deferred, non-billable note. 09/05/22 0003 <Electronically signed by Jazmyne Franklin MD> Cosigner Signature (if applicable): CC: ~ Signed [facility] Work Phone: 1(740) 461-809704-18-2023 Procedure [facility] 09-04-2022 History and physical note Author Dr. Magaña [facility] September 04, 2022 10:23am Note Date/Time September 04, 2022 10: 23am [facility] Medical Records Department [address] [facility] [place] [address] History & Physical Exam 09/04/22 1022 MR#: [id number] Acct: [id number] Name: SEE PARIS Rep #:[id number] : 1945 77 From: Tony Magaña DO PCP: Dr. Jermaine Church, DO Status:AD M IN Location: [place] [address] History and Physical Date of Admission: 09/04/22 [facility] [address] [place] [address] [address] [place] [address] OFFICE VISIT Date of Service:? 07/13/22 MR#: [id number] Acct: [id number] Name:SEE BREWER Rep #: [id number] : 1945 ? ? Provider: Dr. Tony Magaña, DO Age/Sex:? 77/M ? ? Location: [facility] Status: Signed Intake Vital Signs ? 07/13/2307:43 Height 5 ft 10 in Weight: 208 lb BMI 29.8 Intake Visit Reasons:?LEFT HIP Accompanied by: Is patient in pain?: Yes Pain scale (1-10): 5 Allergies acetaminophen [From Percocet] Allergy (Verified 07/11/22 13:47) Otherhydrocodone [From Vicodin] Allergy (Verified 07/11/22 13:47) Othermorphine Allergy (Verified 07/11/22 13:47) Otheroxycodone [From Percocet] Allergy (Verified 07/11/22 13:47) Other Medications amlodipine 5 mg tablet 5 mg PO DAILY 07/11/22 [History Confirmed 07/13/22] ascorbate calcium (vitamin C) 500 mg tablet 500 mg PO DAILY 07/11/22 [History Confirmed 07/13/22] cholecalciferol (vitamin D3) 10 mcg (400 unit) capsule 10 mcg PO DAILY 07/11/22 [History Confirmed 07/13/22] doxazosin 1 mg tablet (Cardura) 1 mg PO DAILY 07/11/22 [History Confirmed 07/13/22] omeprazole 10 mg capsule,delayed release 10 mg PO DAILY 07/11/22 [History Confirmed 07/13/22] tumeric 100 mg-juan 150 mg-olive 50 mg-oreg 150 mg-caprylate capsule cap PO 07/11/22 [History Confirmed 07/13/22] venlafaxine besylate 112.5 mg tablet,extended release 24 hr 225 mg PO DAILY 07/11/22 [History Confirmed 07/13/22] omega 7-ilh-htt-fish oil 300 mg-1,000 mg capsule (Fish Oil) 1 cap PO DAILY 07/13/22 [History Confirmed 07/13/22] rivaroxaban 20 mg tablet (Xarelto) 20 mg PO 07/13/22 [History Confirmed 07/13/22] PFSH Medical History?(Updated 07/13/22 @ 09:02 by Sharri Vazquez) History of chemotherapy Hx of blood clots Hx of radiation therapy Surgical History?(Updated 07/13/22 @ 08:40 by Sharri Vazquez) Hx of prostatectomy HPI LEFT HIP Details: Parts of this documentation were recorded by a scribe, this documentation accurately reflects the service provided and the decisions made by me, Dr. Tony Magaña, DO 07/13/22 0802. SEE PARIS is a 77 year old M here today for? left hip pain. Referred by Dr. Melo. He states that he has been having this pain for about 1 year. Denies anyinjury. He states that his pain is in the left groin and left posterior hip. He states it feels like a grinding in his hip socket. He states that he has the pain with WB. Denies any pain in the hip will sitting/laying. Denies numbness, tingling or other associated symptoms. He does have some low back pain as well but this is not the worst of his pain. Denies any hx of surgery of the hip or the back. He states that he did have a lumbar injection with Dr. Bhandari which did not help at all with his pain. He did have a left hip injection in 04/2022 which was helpful for about 3 weeks. He has been on Xarelto for about 1 year. He had his prostate removed and then had radiation. Then he had 2 spots seen in the pelvis flesh and had additional radiation and chemo therapy about 8 months ago. He sees the oncologist agjose antonio in 11/2022 for re-evalaution. Ortho Exam General General: Yes no acute distress Neurologic: Yes alert and Yes oriented x3 Psychologic: Yes reasonable and appropriate Right Hip Homans Sign: No Left Hip Skin/Wound: No Ecchymosis, No soft tissue swelling and No Erythema Hip: Absent eccymosis, soft tissue swelling, erythema or tender to palpate - HIP: intact sensation to light touch no motor deficits on exam 10 internal rotation with lateral hip pain 40 external rotation with groin pain 5/5 hip flexion strength without pain Head: Normocephalic Atraumatic Chest: symmetrical rise, non-labored breathing, no audible wheeze Abdomen: no guarding, non-rigid Supplemental Info 06/06/2022 MRI lumbar spine:1. Severe bilateral L5-S1 neuroforaminal stenosis.? 2right-sided lateral recess stenosis with impingement on traversing L4 nerve rootin the right lateral recess 06/06/2022 x-ray left hip: Moderate to advanced left hip DJD joint space narrowing subchondral cysts acetabulum 02/12/2022 x-ray lumbar spine:Mild lumbar scoliosis with multilevel spondylosis as described above.? There is grade 1 spondylolisthesis of L5 in relation to L4 and S1.? Coding Level of Care Code Off vis,est,level 3 Diagnoses Osteoarthritis of left hip? M16.12 Lumbar degenerative disc disease? M51.36 SI joint arthritis? M47.818 Assessment and Plan Assessment and Plan (1) Osteoarthritis of left hip: ?Status:?Acute (2) Lumbar degenerative disc disease: ?Status:?Acute (3) SI joint arthritis: ?Status:?Acute Plan reviewed X-rays of patient's lumbar spine and left hip. Personally reviewed x- rays. There is no obvious fracture, dislocation, or lucency noted. Patient educated that he does have DDD /spondylosis, b/l SI joint arthrosis and spondylolisthesis of the lumbar spine but this is likely not the cause of his groin pain. Educated that taking Xarelto with the fish oil and turmeric will increased the blood thinning. Patient educated that he does have moderate to advanced OA of the left hip and arthritis . Educated that the groin pain with hip rotation is from the arthritis of the hip. Educated that if he does have a hip replacement this will not help the back pain. Treatment options are do nothing or steroid injection or PT which he has had, injections which he has hadtemperoraly relief or SHANTI. He has already tried and failed injection and PT therefore he wishes to discuss SHANTI.?Risks, benefits and alternatives of surgery reviewed including but not limited to bleeding, infection, nerve, foot drop, artery and/or tissue damage, fracture, VTE, leg length discrepancy, dislocation,need for hip precautions, continued pain and expected post-operative course. Therecovery is on average 2-3 months before better than pre op and continued improvement up to 2 yrears.?Patient educated that he will need to stop the Xarelto 3days prior to surgery and we will need clearance for this prior to surgery. we will also stop fish oil 3 weeks pre op.? Patient has a concern aboutpain medication as they have made him dizzy and altered mental status .? for this reason along with his age and medical comorbidities he should be an admission procedure with request for transitional care prior to returning home as his is also of advanced age and does not feel that she can care for him,he would need to complete therapy after surgery. Recommended he is admitted after the surgery and could potentially benefit from skilled care after surgery.We will find out when the last hip injection was exactly. He will need to wait 3months after the injection to have surgery.? We will need medical clearance. Follow up in 2 weeks postop or sooner if pain, swelling, numbness or associated symptoms, or concerns develop.? All questions answered. Patient in agreement of plan. 07/13/22 0928 <Electronically signed by Tony Magaña DO> Date Tony Magaña DO Cosigner Signature: Date (if applicable) ? I have examined the patient and the H&P has been reviewed. There are no clinicalchanges since date of exam. 09/04/22 1023 <Electronically signed by Tony Magaña DO> Cosigner Signature (if applicable): CC: Dr. Tony Magaña DO; Dr. Jermaine Church DO~ Signed [facility] Work Phone: [phone] 550-313303-10-2023 History of Present illness Narrative* Liliana Henry MA - 07/27/2022 9:50 AM EST suture * Radha Middleton MD - 07/27/2022 9:50 AM EST Images from the original note were not included. [facility] [address] [place] [id number] Dept: [phone] Dept Loc: [phone] Visit type: Established Patient Reason for Visit: Suture / Staple Removal Assessment and Plan 1. Visit for suture removal 3 sutures successfully removed, advised on home care with follow-up as needed Follow up if symptoms worsen or fail to improve. Subjective Suture / Staple Removal Patient presents for suture removal, 3 sutures placed on the right second finger on 08/14/2022. Patient has been changing his bandages daily, denies any discharge or fevers. Review of Systems Constitutional: Negative for activity change, chills and fever. Respiratory: Negative for shortness of breath. Cardiovascular: Negative for chest pain. Gastrointestinal: Negative for abdominal pain. Allergies Allergen Reactions Floxin Otic [Ofloxacin] Morphine Percocet [Oxycodone-Acetaminophen] Outpatient Medications Prior to Visit Medication Sig Dispense Refill amLODIPine (Norvasc) 2.5 MG tablet Take 2 mg by mouth daily. Calcium Carb-Cholecalciferol (CALCIUM/VITAMIN D PO) Take by mouth. Cholecalciferol (VITAMIN D3 PO) Take by mouth. megestrol (Megace) 20 MG tablet Take by mouth daily. omeprazole (PriLOSEC) [address] capsule Take 20 mg by mouth every morning (before breakfast). Do notcrush or chew. rivaroxaban (Xarelto) 15 MG tablet Take 1 tablet (15 mg) by mouth in the morning and 1 tablet (15 mg) before bedtime. Do all this for 21 days. 42 tablet 0 No facility-administered medications prior to visit. There is no problem list on file for this patient. Social History Tobacco Use Smoking status: Former Smokeless tobacco: Never Substance Use Topics Alcohol use: Never Past Surgical History: Procedure Laterality Date KNEE SURGERY PROSTATECTOMY SHOULDER SURGERY Family History Problem Relation Name Age of Onset Cancer Father Health Maintenance Topic Date Due Hepatitis B Vaccines (1 of 3 - 3-dose series) Never done Lipid Panel Never done Hepatitis C Screening Never done Diabetes Screening Never done Pneumococcal Vaccine: 65+ Years (1 - PCV) Never done DTaP/Tdap/Td Vaccines (2 - Td or Tdap) 07/18/2032 Influenza Vaccine Completed Zoster Vaccines Completed COVID-19 Vaccine Completed HIB Vaccines Aged Out IPV Vaccines Aged Out Hepatitis A Vaccines Aged Out Meningococcal Vaccine Aged Out Rotavirus Vaccines Aged Out HPV Vaccines Aged Out Objective There were no vitals taken for this visit. Physical Exam Skin: Comments: Lesion on the tip of right thumb, appears to be healing well, no evidence of erythema consistent with cellulitis. Linear lesion at the base of right second finger, 3 sutures noted, no evidence of cellulitis or abscess Data Reviewed and Summarized Labs: Lab Results Component Value Date WBC 10.0 10/02/2021 HGB 14.2 10/02/2021 AST 30 09/25/2021 NA 138 10/02/2021 K 4.7 10/02/2021 CL 107 10/02/2021 CREATININE 1.03 10/02/2021 BUN 18 (H) 10/02/2021 CO2 22 10/02/2021 Imaging/Testing: Radha Middleton MD documented in this [facility]02-28[facility]23 History of Present illness Narrative* Nickolas Ortiz, DO - 07/17/2022 3:25 PM EST Images from the original note were not included. Subjective: Chief Complaint Patient presents with right hand Laceration- on thumb and first finer cut them on rubber trimmer. Happened at 2pm today Patient: See Paris is a 77 y.o. male SUBJECTIVE: 77 y.o. male sustained laceration of hand 2 hours ago. Nature of injury: cut on rubber trimmer. Tetanus vaccination status reviewed: tetanus status unknown to the patient. Review of Systems Constitutional: Negative for fatigue and fever. Respiratory: Negative for cough and shortness of breath. Cardiovascular: Negative for chest pain, palpitations and leg swelling. Gastrointestinal: Negative for abdominal pain, blood in stool, constipation and diarrhea. Neurological: Negative for dizziness, light-headedness and headaches. Psychiatric/Behavioral: Negative for suicidal ideas. The patient is not nervous/anxious. Allergies Allergen Reactions Floxin Otic [Ofloxacin] Morphine Percocet [Oxycodone-Acetaminophen] Current Outpatient Medications on File Prior to Visit Medication Sig Dispense Refill amLODIPine (Norvasc) 2.5 MG tablet Take 2 mg by mouth daily. Calcium Carb-Cholecalciferol (CALCIUM/VITAMIN D PO) Take by mouth. Cholecalciferol (VITAMIN D3 PO) Take by mouth. megestrol (Megace) 20 MG tablet Take by mouth daily. omeprazole (PriLOSEC) [address] capsule Take 20 mg by mouth every morning (before breakfast). Do notcrush or chew. rivaroxaban (Xarelto) 15 MG tablet Take 1 tablet (15 mg) by mouth in the morning and 1 tablet (15 mg) before bedtime. Do all this for 21 days. 42 tablet 0 No current facility-administered medications on file prior to visit. Past Medical History: Diagnosis Date Cancer (CMS/HCC) (HCC) Diverticula, colon Hypertension Reflex abnormality Social History Tobacco Use Smoking status: Former Smokeless tobacco: Never Substance Use Topics Alcohol use: Never Objective: BP (!) 147/64 (BP Location: Left arm, Patient Position: Sitting, BP Cuff Size: Large adult) Pulse83 Temp 36.4 C (97.5 F) (Temporal) Wt 235 lb (107 kg) SpO2 99% BMI 33.72 kg/m Physical Exam Constitutional: Oriented to person, place, and time. Appears well-developed and well-nourished. No distress. Obese. Eyes: EOM are normal. No scleral icterus. Neck: Normal range of motion. Pulmonary/Chest: Effort normal. No respiratory distress Musculoskeletal: Normal range of motion. No edema. Neurological: Alert and oriented to person, place, and time. No cranial nerve deficits. Psychiatric: Normal mood and affect. Speech is normal and behavior is normal. Judgment and thought content normal. Small, 0.5 cm curved laceration to the tip of the left thumb not involving the nail bed. Larger, 2cm, linear laceration to the palmar aspect of 2nd/index finger proximal to PIP joint. Assessment 1. Laceration of right thumb without foreign body without damage to nail, initial encounter 2. Laceration of right index finger without foreign body without damage to nail, initial encounter Plan Diagnoses and all orders for this visit: Laceration of right thumb without foreign body without damage to nail, initial encounter - Laceration repair of hands, feet, genit; Future - sulfamethoxazole-trimethoprim (Bactrim DS) 800-160 MG tablet; Take 1 tablet by mouth 2 times daily for 5 days. Laceration of right index finger without foreign body without damage to nail, initial encounter - Laceration repair of hands, feet, genit; Future - sulfamethoxazole-trimethoprim (Bactrim DS) 800-160 MG tablet; Take 1 tablet by mouth 2 times daily for 5 days. Other orders - Tdap vaccine greater than or equal to 7 years old IM Anesthesia with 1% Lidocaine without Epinephrine (2cc local block). Wound cleansed. Sutured using 5.0 Nylon x 3 interrupted sutures. Antibiotic ointment and dressing applied. Wound care instructions provided. Observe for any signs of infection or other problems. Return for suture removal in 10 days. Patient presenting to urgent care this afternoon with 2 digital lacerations. Index finger laceration repaired as per above procedure note. No indication to repair thumb laceration since wound is small and approximated without active bleeding. Steri-Strip applied to thumb laceration and hemostatic. Will cover patient with Bactrim for 5 days for possible left thumb cellulitis as it is somewhat erythematous (5 days per IDSA guidelines, MRSA coverage). Nickolas Ortiz DO 07/17/22 4:46 PM If symptoms do not improve, worsen, or new symptoms develop, see PCP for further evaluation. * Anahi Mistry MA - 07/17/2022 3:25 PM EST The patient, See Paris is a 77 y.o. male identity was verified by name and date of . Injection of TDVAX was administered per Dr. Nazanin Alcazar's Orders: Injection site: Right Deltoid Medication: TDVAX KSC:[id number] LOT:[id number] Exp: 09/23/2023 Patient was advised to wait in clinic/exam room 20 minutes after administration after administration of the above medication. After awaiting 20 minutes, I returned to patient. The patient tolerated the injection well and without incident. The patient was discharged home with education. (After Visit Summary) It should be noted that two steri strips were applied as directed by Dr. Ortiz ,on the Right Thumb. The Right index finger was dressed with a non adherent bandage and then secured with coban. Finallythe a pressure bandage was applied using tube guaze. The patient was given written and oral wound care instructions. Our office phone number was highlighted on the AVS, and he was instructed to call our office with any questions or concerns. Pt verbalized understanding that he will return in 7-10 days for suture removal. Anahi Mistry MA documented in this [facility]02-28-2023 Miscellaneous Notes* Addendum Note - Nickolas Ortiz DO - 07/17/2022 3:25 PM ESTAddended by: NICKOLAS ORTIZ on: 07/18/2022 10:39 AM Modules accepted: Orders documented in this [facility]02-28-2023 Note* Addendum Note - Nickolas Ortiz DO - 07/17/2022 3:25 PM ESTAddended by: NICKOLAS ORTIZ on: 07/18/2022 10:39 AM Modules accepted: [id number]* Addendum Note - Nickolas Ortiz DO - 07/17/2022 3:25 PM ESTAddended by: NICKOLAS ORTIZ on: 07/18/2022 10:39 AM Modules accepted: [id number]* Addendum Note - Nickolsa Ortiz DO - 07/17/2022 3:25 PM ESTAddended by: NICKOLAS ORTIZ on: 07/18/2022 10:39 AM Modules accepted: [id number] Note* Addendum Note - Nickolas Ortiz DO - 07/17/2022 3:25 PM ESTAddended by: NICKOLAS ORTIZ on: 07/18/2022 10:39 AM Modules accepted: [id number] Note* Addendum Note - Nickolas Ortiz DO - 07/17/2022 3:25 PM ESTAddended by: NICKOLAS ORTIZ on: 07/18/2022 10:39 AM Modules accepted: [id number] History of Present illness Narrative* Mary Gonzalez MD - 06/18/2022 3:05 PM EST ESTABLISHED PATIENT OFFICE VISIT HISTORY OF PRESENT ILLNESS Patient presents with: Prostate Cancer See Paris is a 77 year old male who presents w/ for follow up regarding New problem- main complaint is hot flashes, also haivng LBP- to get steroid injection tomorrow LAB RESULTS Creatinine Date Value Ref Range Status 01/18/2019 1.10 0.67 - 1.17 mg/dL Final PSA Date Value 07/12/2021 4.5 ng/mL 03/27/2021 3.7 ng/mL 11/18/2020 2.4 ng/mL 07/12/2020 2.4 ng/mL 02/22/2020 1.8 ng/mL 10/27/2019 1.4 NG/ML 10/20/2018 1.1 NG/ML 01/22/2017 0.5 ng/mL Color (no units) Date Value 01/17/2019 YELLOW Glucose, Urine (mg/dL) Date Value 01/17/2019 NEGATIVE Bilirubin, Urine (no units) Date Value 01/17/2019 NEGATIVE Ketones, Urine (mg/dL) Date Value 01/17/2019 NEGATIVE Specific [place], Ur (no units) Date Value 01/17/2019 1.020 pH, Urine (no units) Date Value 01/17/2019 8.5 Protein, Urine (mg/dL) Date Value 01/17/2019 NEGATIVE Nitrites Urine (no units) Date Value 01/17/2019 NEGATIVE Leukocytes Esterase (no units) Date Value 01/17/2019 NEGATIVE ALLERGIES Allergen Reactions Morphine Other: See Comments Ofloxacin Other: See Comments Percocet [Oxycodone* Unknown MEDICATIONS: rivaroxaban (XARELTO) 20 mg tablet Take 20 mg by mouth daily with dinner. Cholecalciferol, Vitamin D3, 1,000 unit cap Take 1,000 Units by mouth once daily. calcium carbonate (CALTRATE) 600 mg calcium (1,500 mg) tab Take 1 tablet by mouth once daily. megestrol (MEGACE) 20 mg tablet TAKE 1 TABLET BY MOUTH TWICE A DAY bicalutamide (CASODEX) 50 mg tablet TAKE 1 TABLET BY MOUTH EVERY DAY omega 0-dju-vil-fish oil (FISH OIL) 100-160-1,000 mg cap Take by mouth. meclizine (ANTIVERT) 25 mg tab Take 1 tablet by mouth three times daily as needed. ondansetron orally disintegrating (ZOFRAN ODT) 4 mg disintegrating tablet Take 1 tablet by mouth every 8 hours as needed. TURMERIC-HERBAL COMPLEX NO.278 ORAL Take 1 tablet by mouth once daily. amLODIPine (NORVASC) 5 mg tablet Take 5 mg by mouth once daily. doxazosin (CARDURA) 2 mg tablet Take 2 mg by mouth daily at bedtime. omeprazole (PRILOSEC) 20 mg capsule Take 40 mg by mouth daily at bedtime. REVIEW OF SYSTEMS GENERAL:no unintentional weight loss, malaise or fevers. NEUROLOGIC: pt is alert and oriented GENITOURINARY: No history of dysuria, frequency or incontinence The remainder of the ROS was reviewed and is negative. HISTORIES PAST MEDICAL HISTORY Diagnosis Date Arthritis Elevated PSA GERD (gastroesophageal reflux disease) Melanoma (HCC) Prostate cancer (HCC) History reviewed. No pertinent family history. PAST SURGICAL HISTORY Procedure Laterality Date LAPS PROSTECT RETROPUBIC RAD W/NRV SPARING ROBOT MELANOMA OF SKIN EXCISION SYN RPT PAST SURGICAL HISTORY OF removal of skin cancer from nose SOCIAL HISTORY Social History Tobacco Use Smoking status: Never Smokeless tobacco: Never Vaping Use Vaping Use: Never used Substance Use Topics Alcohol use: Yes Comment: once monthly Drug use: No PHYSICAL EXAMINATION General appearance: Well appearing, alert, in no acute distress, well-hydrated, well nourished Psych Alert and oriented to person, place and time Respiratory: no wheezing or rhonchi Genitourinary: MALE EXAM: Exam NOT Indicated 12/12/2021 Lupron 10/27/2021 PSA 2.0 07/28/2021 PSMA PET ++ two <1cm areas right pelvic fossa suspicious 07/12/2021 PSA 4.5 11/18/2020 PSA 2.4 07/12/2020 PSA 2.4 02/23/2020 PSA 1.8 10/27/2019 PSA 1.4 08/25/2019 PSA 1.7 10/20/2018 PSA 1.1 10/15/2017 PSA 0.6 07/30/2016: PSA: 0.4 01/16/2016: PSA: 0.3 07/12/2015: PSA: 0.3 01/03/2015: PSA: 0.29 09/13/2014: salvage IMRT complete 07/08/2014: PSA: 0.27 06/14/2014: PSA: 0.29 02/17/2014: PSA: 0.20 08/21/2013: PSA: 0.15 02/05/2008: PSA: 0.1 01/15/2008: PSA: 0.12 12/02/2007: RALP Gl 7, neg margins 06/10/2007: PSA: 6.3 (PROSCAR) Assessment and Plan: BPH/LUTS- nocturia 2x, no hematuria/dysuria, stable ED- weak erections and looses quickly, no help with PO pills in past Prostate cancer- s/p RALP followed by salvage IMRT, followed by disease recurrence - PSMA PET ++ ADT, previously refused oncology referral - last Lupron 6 mths ago - check PSA/test now then decide on timing of next ADT injection [facility] Misc[facility] Notes* Telephone Encounter - Jos Valle MA - 02/15/2022 1:36 PM EDT Patient called requesting the following refill. Requested Prescriptions Pending Prescriptions Disp Refills megestrol (MEGACE) 20 mg tablet [Pharmacy Med Name: MEGESTROL 20 MG TABLET] 3 Sig: TAKE 1 TABLET BY MOUTH TWICE A DAY Patient last appointment: 01/29/2022 Patient Phone numbers: [phone] (home) Request is for script(s) to be escript to pharmacy. Jos Valle MA [facility] Miscellaneous Notes* Telephone Encounter - Belgica Blackwell MA - 02/01/2022 3:58 PM EDT Patient call about an update on the medication (Megace) he is having Hot flashes and wants to know what can be done Please advise Belgica Blackwell MA * Telephone Encounter - Regina Mathew CMA - 01/29/2022 10:47 AM EDT Pt called states he has been taking Megace for several days and he doesn't feel any difference at all Please advise Regina Mathew CMA [facility] Miscellaneous Notes* Telephone Encounter - Nacho Contreras Ma - 01/23/2022 3:06 PM EDT Patient called stating that he is getting hot flashes from the lupron and is asking if there is something that can be done about that? Can you advise? Nacho Contreras Ma documented in this [facility]07-26-2022 Nurse Note* Stan Klein LPN - 12/12/2021 1:29 PM EDT Patient given Lupron 45 mg IM injection in the right buttocks as documented in the MAR. Patient tolerated well. Stan Klein LPN [facility] Miscellaneous Notes* Telephone Encounter - Alley Paredes MA - 11/06/2021 3:15 PM EDT Pharmacy faxed requesting the following refill. Pending Prescriptions Disp Refills BICALUTAMIDE 50 MG TABLET 90 tablet 5 Sig: TAKE 1 TABLET BY MOUTH EVERY DAY ZULAY: Yes Patient last appointment: 09/21/2021 Patient Phone numbers: [phone] (home) Request is for script(s) to be escript to pharmacy. Alley Paredes MA [facility] Miscellaneous Notes* Telephone Encounter - Veronica Merino Cma - 10/04/2021 3:36 PM EDT Patient called stating he has recently been diagnosed with a blood clot. Per patient he stopped his Casodex because he was unsure if this medication could cause a blood clot? Patient is inquiring if Casodex is safe to take with a blood clot? Veronica Merino Cma documented [facility]05-[facility]-20[facility] Miscellaneous Notes* Telephone Encounter - Maribell Damian - 09/21/2021 9:13 AM EDT Spoke with patient, he has been battling some virus for the past month now has been in and out of er and urgent cares as well as doctor. He is just now starting to feel a little bit better. He will call once he is feeling better so he can get the injection scheduled. I have left myself a reminder for 2 weeks from now to call him if he has not already scheduled the lupron. Maribell Damian * Telephone Encounter - Mary Gonzalez MD - 09/21/2021 9:08 AM EDT Pt cancelled his Lupron appt- please reschedule 6 mth Lupron or Eligard Mary Gonzalez MD [facility] Miscellaneous Notes* Telephone Encounter - Dallin Porter MA - 08/25/2021 8:19 AM EDT Pt called in again asking same question. Dr. Gonzalez on surgery can you look at it. Dallin Porter MA * Telephone Encounter - Dallin Porter MA - 08/24/2021 8:46 AM EDT Pt called in saying he is having nausea, confusion and feeling high in morning. He thinks its the side effect of Casodex. Pt asking should he stop this medication. Please advise Dallin Porter MA [facility] History of Present illness Narrative* Mary Gonzalez MD - 08/14/2021 2:35 PM EDT ESTABLISHED PATIENT OFFICE VISIT HISTORY OF PRESENT ILLNESS Patient presents with: Prostate Cancer See Paris is a 76 year old male who presents w/ for follow up regarding the below issues New problem- ++ PET LAB RESULTS Creatinine Date Value Ref Range Status 01/18/2019 1.10 0.67 - 1.17 mg/dL Final PSA Date Value 07/12/2021 4.5 ng/mL 03/27/2021 3.7 ng/mL 11/18/2020 2.4 ng/mL 07/12/2020 2.4 ng/mL 02/22/2020 1.8 ng/mL 10/27/2019 1.4 NG/ML 10/20/2018 1.1 NG/ML 01/22/2017 0.5 ng/mL Color (no units) Date Value 01/17/2019 YELLOW Glucose, Urine (mg/dL) Date Value 01/17/2019 NEGATIVE Bilirubin, Urine (no units) Date Value 01/17/2019 NEGATIVE Ketones, Urine (mg/dL) Date Value 01/17/2019 NEGATIVE Specific [place], Ur (no units) Date Value 01/17/2019 1.020 pH, Urine (no units) Date Value 01/17/2019 8.5 Protein, Urine (mg/dL) Date Value 01/17/2019 NEGATIVE Nitrites Urine (no units) Date Value 01/17/2019 NEGATIVE Leukocytes Esterase (no units) Date Value 01/17/2019 NEGATIVE ALLERGIES Allergen Reactions Morphine Other: See Comments Ofloxacin Other: See Comments Percocet [Oxycodone* Unknown MEDICATIONS: bicalutamide (CASODEX) 50 mg tablet TAKE 1 TABLET BY MOUTH EVERY DAY omega 0-rds-tir-fish oil (FISH OIL) 100-160-1,000 mg cap Take by mouth. Cholecalciferol, Vitamin D3, 1,000 unit cap Take 1,000 Units by mouth once daily. calcium carbonate (CALTRATE) 600 mg calcium (1,500 mg) tab Take 1 tablet by mouth once daily. TURMERIC-HERBAL COMPLEX NO.278 ORAL Take 1 tablet by mouth once daily. amLODIPine (NORVASC) 5 mg tablet Take 5 mg by mouth once daily. doxazosin (CARDURA) 2 mg tablet Take 2 mg by mouth daily at bedtime. omeprazole (PRILOSEC) 20 mg capsule Take 40 mg by mouth daily at bedtime. meclizine (ANTIVERT) 25 mg tab Take 1 tablet by mouth three times daily as needed. ondansetron orally disintegrating (ZOFRAN ODT) 4 mg disintegrating tablet Take 1 tablet by mouth every 8 hours as needed. REVIEW OF SYSTEMS GENERAL:no unintentional weight loss, malaise or fevers. NEUROLOGIC: pt is alert and oriented RESPIRATORY: Negative for cough, wheezing or shortness of breath. GASTROINTESTINAL: No nausea, vomiting, or diarrhea GENITOURINARY: Positive for BPH The remainder of the ROS was reviewed and is negative. HISTORIES PAST MEDICAL HISTORY Diagnosis Date Arthritis Elevated PSA GERD (gastroesophageal reflux disease) Melanoma (HCC) Prostate cancer (HCC) History reviewed. No pertinent family history. PAST SURGICAL HISTORY Procedure Laterality Date LAPS PROSTECT RETROPUBIC RAD W/NRV SPARING ROBOT MELANOMA OF SKIN EXCISION SYN RPT PAST SURGICAL HISTORY OF removal of skin cancer from nose SOCIAL HISTORY Social History Tobacco Use Smoking status: Never Smoker Smokeless tobacco: Never Used Substance Use Topics Alcohol use: Yes Comment: once monthly Drug use: No PHYSICAL EXAMINATION General appearance: Well appearing, alert, in no acute distress, well-hydrated, well nourished Psych Alert and oriented to person, place and time Respiratory: no wheezing or rhonchi Genitourinary: MALE EXAM: Exam NOT Indicated 08/14/2021 Lupron 07/28/2021 PSMA PET ++ two <1cm areas right pelvic fossa suspicious 07/12/2021 PSA 4.5 11/18/2020 PSA 2.4 07/12/2020 PSA 2.4 02/23/2020 PSA 1.8 10/27/2019 PSA 1.4 08/25/2019 PSA 1.7 10/20/2018 PSA 1.1 10/15/2017 PSA 0.6 07/30/2016: PSA: 0.4 01/16/2016: PSA: 0.3 07/12/2015: PSA: 0.3 01/03/2015: PSA: 0.29 09/13/2014: IMRT complete 07/08/2014: PSA: 0.27 06/14/2014: PSA: 0.29 02/17/2014: PSA: 0.20 08/21/2013: PSA: 0.15 02/05/2008: PSA: 0.1 01/15/2008: PSA: 0.12 12/02/2007: RALP Gl 7, neg margins 06/10/2007: PSA: 6.3 (PROSCAR) Assessment and Plan: BPH/LUTS- nocturia 2x, no hematuria/dysuria, still with strong stream ED- weak erections and looses quickly, no help with PO pills in past Prostate cancer- s/p RALP followed by salvage IMRT, doing well and no new complaints - known disease recurrence, his latest PSA is up to 4.5 with doubling time of approx 8 mths so progressing rapidly. Pt denies any wt loss or bone pain, good appetite and no hematuria - PSMA PET with two areas <1cm in the pelvis suspicious for mets so technically M0 (no distant mets). Discussed possible benefit of zytiga/prednisone to ADT and offered oncology referral but he isnot intersted - pt OK to stop Casodex, we discussed the pros/cons of ADT but given doubling time I suggested he proceed and he agrees - Lupron in 2 weeks per pt request (says has sore throat today) - check PSA/test in 6 mths [facility] Author Yair Pace [facility] December 15, 2022 2:38am Note Date/Time December 15, 2022 1:30 am [facility] Medical Records Department [address] [place] [address] Emergency Department Summary 12/15/22 MR#: [id number] Acct: [id number] Name: SEE PARIS Rep #:[id number] : 1945 77 From: Yair Pace MD PCP: Dr. Jermaine Church, DO Status:RE G ER Location: ED HPI History of Present Illness Chief Complaint: Lower Extremity Injury Informant: patient Narrative Narrative: Patient presents with over 3 weeks of aching pain in both legs. No back pain, no numbness, no joint pains, no swelling no rashes. No fevers or chills. States he saw his doctor about this, was put on some basically electrolyte replacement, medications, nothing is helped. He presents at 1 in the morning tot ER tonight, saying nothing is different but he had trouble sleeping and was tired of it. PFSH PFSH Medical History Arthritis DVT (deep venous thrombosis) GERD (gastroesophageal reflux disease) History of chemotherapy History of prostate cancer Hx of blood clots Hx of radiation therapy Non-smoker Home Medications amlodipine 5 mg tablet 5 mg PO DAILY BP 07/11/22 [History Last Taken 09/03/22] cholecalciferol (vitamin D3) 10 mcg (400 unit) capsule 10 mcg PO DAILY Check with primary doctor 07/11/22 [History Last Taken 09/03/22] doxazosin 1 mg tablet (Cardura) 1 mg PO DAILY BPH 07/11/22 [History Last Taken 09/03/22] omeprazole 10 mg capsule,delayed release 10 mg PO DAILY Check with primary doctor 07/11/22 [History Last Taken 09/03/22] megestrol 20 mg tablet 20 mg PO BID hormone 08/22/22 [History Last Taken 09/03/22] rivaroxaban 20 mg tablet (Xarelto) 20 mg PO DAILY blood clots 09/04/22 [History Last Taken 09/01/22 18:00] scopolamine base 1 mg over 3 days transdermal patch 1 patch transdermal Q3D@1000#0 ea 09/17/22 [Rx Last Taken Unknown] amoxicillin 500 mg tablet 2,000 mg (4 x 500 mg) PO ONCE #4 tabs 11/26/22 [Rx Last Taken Unknown] Allergy/AdvReac Type Severity Reaction Status Date / Time acetaminophen [From Percocet] Allergy Other Verified 09/04/22 09:05 hydrocodone [From Vicodin] Allergy Other Verified 09/04/22 09:05 morphine Allergy Other Verified 09/04/22 09:05 oxycodone [From Percocet] Allergy Other Verified 09/04/22 09:05 Surgical History History of total left hip arthroplasty Hx of prostatectomy Social History household members: spouse Smoking Status: Never smoker alcohol intake: never substance use type: does not use ROS ROS ED Constitutional Constitutional ED: Denies chills or fever(s) Musculoskeletal Musculoskeletal: Reports extremity pain; Denies neck pain Integumentary Denies Abrasions, rash or wounds Neurologic Neurologic: Denies paresthesias or weakness EXAM Physical Exam Const Vital Signs: 12/15/22 01:01 Temperature 97.6 F L Temperature Source Oral Pulse Rate 63 Respiratory Rate 16 Blood Pressure 172/69 H Blood Pressure Mean 103 Pulse Ox 97 Oxygen Delivery Method Room Air Positive well nourished and well developed General Appearance ED: well developed and NAD Neck full ROM and supple Back/Spine normal ROM and normal to inspection Extremity normal to inspection Extremity Narrative: nontender. soft compartments throughout BLE. FROM throughout. NVID BLE. No rashes. no palpable cords. Neuro oriented x3, no focal motor deficits and no sensory deficits noted Sensorium / Orientation: alert Psych mental status grossly normal and thought process normal Skin no wounds Rashes: no rashes MDM MDM MDM Narrative Medical decision making narrative: Labs are all normal. This includes electrolytes, magnesium, CPK. He was a little prerenal I gave him IV fluids while we were awaiting these labs, he states that actually feels a little better there. I asked if he could be chronically dehydrated he states he drank a lot of water today but otherwise he really does not know. He is neurovascular intact distally does not have cauda equina syndrome, he does not appear to have any compartment syndrome or signs orsymptoms of a DVT, he is anticoagulated and I see no reason to do any other emergent tests or admit him to the hospital. He is reassured, he is offered analgesics, he declines tramadol or any narcotics, since he is anticoagulated I cannot safely give NSAIDs, he states he is okay going home and taking Tylenol and following up with his doctor after the weekend. Lab Data Attestation: I reviewed the patient's lab results. Labs: Laboratory Results - last 24 hr 12/15/22 01:40 WBC 6.6 RBC 4.40 L Hgb 13.6 Hct 41.6 MCV 94.5 H MCH 30.9 MCHC 32.7 RDW Std Deviation 44.6 H RDW Coeff of Angelica 13.0 Plt Count 138 L MPV 9.2 Immature Gran % (Auto) 0.600 Neut % (Auto) 68.3 Lymph % (Auto) 14.5 L Barber % (Auto) 9.2 Eos % (Auto) 6.6 H Baso % (Auto) 0.8 Absolute Neuts (auto) 4.5 Absolute Lymphs (auto) 0.96 Nucleated RBC % 0 Sodium 141 Potassium 3.8 Chloride 111 H Carbon Dioxide 24.0 Anion Gap 6 BUN 22 H Creatinine 1.26 Estim Creat Clear Calc 50.69 Est GFR (MDRD) Af Amer 71 Est GFR (MDRD) Non-Af 59 L BUN/Creatinine Ratio 17.5 Glucose 103 Calcium 9.0 Magnesium 2.2 Total Creatine Kinase 70 Discharge Plan Triage Chief Complaint: Lower Extremity Injury ED Provider: Yair Pace Dx/Rx/DC Orders Clinical Impression: Bilateral lower extremity pain Instructions: ED Myalgias Prescriptions: No Action amlodipine 5 mg tablet 5 mg PO DAILY doxazosin [Cardura] 1 mg tablet 1 mg PO DAILY omeprazole 10 mg capsule,delayed release(DR/EC) 10 mg PO DAILY cholecalciferol (vitamin D3) 10 mcg (400 unit) capsule 10 mcg PO DAILY megestrol 20 mg tablet 20 mg PO BID Patient Comments: TAKE 1 TABLET BY MOUTH TWICE A DAY Xarelto 20 mg tablet 20 mg PO DAILY Patient Comments: TAKE 1 TABLET BY MOUTH EVERY DAY WITH DINNER scopolamine base 1 mg over 3 days Patch 3 Day 1 patch transdermal Q3D@1000 Qty: 0 0RF amoxicillin 500 mg tablet 2,000 mg PO ONCE Qty: 4 0RF Rx Instructions: take 4 tabs within 1 hr prior to dental procedure. Primary Care Provider: Jermaine Church Referrals: Jermaine Church DO [Primary Care Provider] - (Next week call for appointment) What to do if you have Problems For any increased pain, shortness of breath, bleeding, nausea or vomiting, chestpain, or any unexpected problems, contact your Primary Care Provider. Call [facility] ([phone]) or report to the closest Emergency Room. Call 911 if necessary. 12/15/22237 <Electronically signed by Yair Pace MD> Cosigner Signature (if applicable): CC: Dr. Jermaine Church DO ~ Signed [facility] Work Phone: Evaluation note* Diagnosis Prostate cancer (HCC) Malignant neoplasm of prostate Rising PSA following treatment for malignant neoplasm of prostate [facility] Diagnosis Prostate cancer (HCC)- Primary Malignant neoplasm of prostate Rising PSA following treatment for malignant neoplasm of prostate Nocturia documented [facility]* Diagnosis Right upper quadrant abdominal pain- Primary Abdominal pain, right upper quadrant Constipation, unspecified constipation type documented in this encounter [facility] Work Phone: Evaluation note* Diagnosis DVT of axillary vein, acute right (HCC)- Primary documented in this encounter [facility] Work Phone: Evaluation note* Diagnosis Prostate cancer (HCC) Malignant neoplasm of prostate Rising PSA following treatment for malignant neoplasm of prostate documented in this encounter [facility] note* Diagnosis Prostate cancer (HCC)- Primary Malignant neoplasm of prostate documented in this encounter [facility] noteNo assessment information availableWAdena Health System Work Phone: Evaluation note* Diagnosis Prostate cancer (HCC)- Primary Malignant neoplasm of prostate Rising PSA following treatment for malignant neoplasm of prostate Nocturia documented in this encounter [facility] note* Diagnosis Onset Date Resolution Status Osteoarthritis of hip acute Lumbar degenerative disc disease acute Osteoarthritis of left hip a cute SI joint arthritis acute Osteoarthritis of hip acute S/P total left hip arthroplasty acute [facility] Work Phone: Evaluation note* Diagnosis Onset Date Resolution Status Osteoarthritis of hip resolv ed Lumbar degenerative disc disease acute Osteoarthritis of left hip a cute SI joint arthritis acute S/P total left hip arthroplasty acute Osteoarthritis of hip resolv ed BPH (benign prostatic hyperplasia) acute Debility acute Depression acute GERD (gastroesophageal reflux disease) acute History of DVT (deep vein thrombosis) acute History of pulmonary embolism acute Prostate cancer acute S/P total left hip arthroplasty acute Hypertension chronic Osteoarthritis of hip resolv ed Orthopedic aftercare acute [facility] Work Phone: Evaluation note* Diagnosis Prostate cancer (HCC)- Primary Malignant neoplasm of prostate Rising PSA following treatment for malignant neoplasm of prostate Nocturia documented in this encounter [facility] note* Diagnosis 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 Cervico-occipital neuralgia Other syndromes affecting cervical region New daily persistent headache [facility] Diagnosis Cervico-occipital neuralgia Other syndromes affecting cervical region [facility]* Diagnosis Prostate cancer (HCC)- Primary Malignant neoplasm of prostate Rising PSA following treatment for malignant neoplasm of prostate Nocturia documented in this encounter [facility] note* Diagnosis Vertebral artery insufficiency Vertebral artery syndrome [facility]* Diagnosis Cervico-occipital neuralgia- Primary Other syndromes affecting cervical region Vertigo Dizziness and giddiness New daily persistent headache documented in this encounter [facility] note* Diagnosis Prostate cancer (HCC) Malignant neoplasm of prostate Rising PSA following treatment for malignant neoplasm of prostate Nocturia documented in this encounter [facility] note* Diagnosis Prostate cancer (HCC)- Primary Malignant neoplasm of prostate Rising PSA following treatment for malignant neoplasm of prostate Nocturia documented in this encounter [facility] note* Diagnosis Prostate cancer (HCC)- Primary Malignant neoplasm of prostate [facility]* Diagnosis Prostate cancer (HCC)- Primary Malignant neoplasm of prostate Rising PSA following treatment for malignant neoplasm of prostate Nocturia documented in this encounter [facility] note* Diagnosis Laceration of right thumb without foreign body without damage to nail, initial encounter- Primary Laceration of right index finger without foreign body without damage to nail, initial encounter documented in this encounter [facility] note* Diagnosis Visit for suture removal- Primary documented in this encounter [facility] note* Diagnosis Onset Date Resolution Status S/P total left hip arthroplasty acute Osteoarthritis of hip resolv ed BPH (benign prostatic hyperplasia) acute Debility acute Depression acute GERD (gastroesophageal reflux disease) acute History of DVT (deep vein thrombosis) acute History of pulmonary embolism acute Prostate cancer acute S/P total left hip arthroplasty acute Hypertension chronic Osteoarthritis of hip resolv ed Orthopedic aftercare acute Orthopedic aftercare acute [facility] Work Phone: Evaluation note* Diagnosis Fall, initial encounter- Primary Closed fracture of maxillary sinus, initial encounter ([facility]) documented in this encounter [facility] note* Diagnosis Closed fracture of right side of mandibular body, initial encounter (Multi) Fracture of unspecified part of body of left mandible, initial encounter for closed fracture (Multi) documented in this encounter [facility] Work Phone: Evaluation note* Diagnosis Fracture of unspecified part of body of left mandible, initial encounter for closed fracture (Multi)- Primary documented in this encounter [facility] Work Phone: Evaluation note* Diagnosis Nocturia- Primary History of prostate cancer Personal history of malignant neoplasm of prostate [facility]* Diagnosis Nocturia- Primary History of prostate cancer Personal history of malignant neoplasm of prostate Rising PSA following treatment for malignant neoplasm of prostate [facility]* Instructions* Christian Painter MD - 09/25/2021 Stool softeners and laxatives as needed such as docusate and MiraLAX. * Attachments The following attachments cannot be sent through Care Everywhere. * Constipation (Colombian) * Abdominal Pain (Colombian) [facility] Hospital Discharge instructions* Attachments The following attachments cannot be sent through Care Everywhere. * DVT (Deep Vein Thrombosis) (Colombian) [facility] Work Phone: Hospital Discharge instructions Additional Instructions Your lab work was largely normal today. Your CT did show finding consistent with significant constipation likely acute on chronic. You are given additional enema in the ER. Please continue taking your antibiotics as prescribed. You have been started on MiraLAX to hopefully help you start to have more regular bowel movements. I also would recommend taking an [id number] fiber supplements and increasing your fluid intake. If you have worsening symptoms please return to the emergency room. Please follow-up with your primary care doctor.[facility] Work Phone: Hospital Discharge instructions Additional Instructions Your CT scan showed no sign of skull fracture brain bleed facial fracture or neck fracture. Continue Tylenol for pain control and add topical Voltaren or lidocaine patches to help with symptoms as well. Please continue to stretch and heat your neck to reduce pain and speed healing. Return to the ER should you have any further concernsWAdena [facility] Work Phone: Instructions* Attachments The following attachments cannot be sent through Care Everywhere. * Laceration Repair With Stitches Discharge Instructions (Colombian) * Wound Care Discharge Instructions (Colombian) [facility] Diagnostic Procedure Only (Routine) - Authorized Specialty Diagnoses / Procedures Referred By Contac t Referred To Contact MOLECULAR & FUNCTIONAL IMAGING Diagnoses Prostate cancer (HCC) Rising PSA following treatment for malignant neoplasm of prostate Nocturia Procedures NM PET/CT PROSTATE WHOLE BODY IMAGING PET IMAGING CT ATTENUATION SKULL BASE MID-THIGH Mary Gonzalez MD [address] [place] [address] Molecular & Functional Imaging [address] [place] [address] Referral ID Status Reason Start Date Expiration Date Visits Requested Visits Authorized [id number] Authorized Auto-Generat ed Referral 07/29/2023 01/25/2024 2 2 [facility] for referral (narrative)No reason for referral information availableWAdena Health System Work Phone: Reason for visit Narrative* Diagnostic Procedure Only (Routine) - Closed Specialty Diagnoses / Procedures Referred By Jennie t Referred To Contact MOLECULAR & FUNCTIONAL IMAGING Diagnoses Prostate cancer (HCC) Rising PSA following treatment for malignant neoplasm of prostate Nocturia Procedures NM PET/CT PROSTATE WHOLE BODY IMAGING PET IMAGING CT ATTENUATION SKULL BASE MID-THIGH Mary Gonzalez MD [address] [place] [address] Molecular & Functional Imaging [address] [place] [address] Referral ID Status Reason Start Date Expiration Date V isits Requested Visits Authorized [id number] Closed Auto-Generate d Referral 07/29/2023 01/25/2024 2 2 [facility] for visit Narrative* Imaging (Emergency) - Authorized Specialty Diagnoses / Procedures Referred By Jennie t Referred To Contact Radiology Diagnoses Closed fracture of right side of mandibular body, initial encounter (Multi) Procedures CT maxillofacial bones wo IV contrast Jimmy Kulkarni, GEOFFS [address] [place] [address] Phone: tel: fax: Referral ID Status Reason Start Date Expiration Date Visits Requested Visits Authorized [id number] Authorized Perform Procedure 07/31/2024 07/31/2025 1 1 [facility] Work Phone: Reason for visit Narrative* Auth/Cert Specialty Diagnoses / Procedures Referred By Jennie t Referred To Contact Diagnoses Fracture of unspecified part of body of left mandible, initial encounter for closed fracture (Multi) Fracture of Unspecified part of Body of Left Mandible, initial encounter for closed fracture [S02.602XA] Procedures MN OPEN TX MANDIBULAR FX W/INTERDENTAL FIXATION ORIF, FRACTURE, MANDIBLE Jimmy Kulkarni, DDS [address] [place] [address] Phone: tel: fax: [facility] [place] [address] [place] [address] fax: Referral ID Status Reason Start Date Expiration Date Visits Re quested Visits Authorized [id number] 1 1 [facility] Work Phone: Summary Purpose Family History No Family History Records FoundNo Family History Records FoundThere may be information available, but it has not been provided by the sender.No Family History Records FoundNo Family History Records FoundNo Family History Records FoundNo Family History Records FoundNo Family History Records FoundNo Family History Records FoundNo Family History Records FoundNo Family History Records Found Advance Directives No Advanced Directives Records FoundDocuments on File Type Date Recorded Patient Watch Hairspring Assembler Expl anation Advance Directives and Living Will Power of Baby Attendant Documents on File Type Date Recorded Patient Watch Hairspring Assembler Expl anation Advance Directive(s) 01/17/2019 10:05 AM Documents on File Type Date Recorded Patient Watch Hairspring Assembler Expl anation ACP-Advance Directive ACP-Power of Baby Attendant Advance Directive Response Recorded Date/ Time Name of Medical Power of Baby Attendant Monse Paris September 04, 2022 3:51pm Living Will Yes September 04, 2022 3:51pm Power of Baby Attendant Yes September 04 3:51pm Advance Directive Response Recorded Date/ Time Name of Medical Power of Baby Attendant Monse [place] September 04, 2022 3:51pm Name of Medical Power of Baby Attendant Monse [place], September 07, 2022 12:17pm Living Will Yes September 07, 2022 12:17pm Power of Baby Attendant Yes September 07 12:17pm Advance Directive Response Recorded Date/ Time Name of Medical Power of Baby Attendant Monse Paris September 04, 2022 3:51pm Name of Medical Power of Baby Attendant Monseerick JimenezParis, September 07, 2022 12:17pm Name of Medical Power of Baby Attendant Monse Paris December 15, 2022 1:04am Living Will Yes December 15, 2022 1:04am Power of Baby Attendant Yes December 15 1:04am Date Activated Date Inactivated Comments 08/05/2024 5:30 PM Question Answer Comments Plan of Care: Code Status Discussion Completed Decision Maker: Patient Advance Directive Response Recorded Date/ Time Living Will Yes September 03, 2024 4:32am Do you have a Healthcare Power of Baby Attendant? Yes September 03, 2024 4:32am Name of Medical Power of Baby Attendant Monse- spouse September 03, 2024 4:32am Advance Directive Response Recorded Date/ Time Living Will Yes September 03, 2024 4:32am Do you have a Healthcare Power of Baby Attendant? Yes September 03, 2024 4:32am Name of Medical Power of Baby Attendant Monse- spouse September 03, 2024 4:32am Living Will No September 05, 2024 5:22am Do you have a Healthcare Power of Baby Attendant? No September 05, 2024 5:22am Chief Complaint Chief Complaint Description Start Date lower back pain Preliminary chief co mplaint data, not yet signed by the author as of Instructions Instruction Description Start Date Patient advised to follow-up with Primary Care Physician for BMI management. Assessments There may be information available, but it has not been provided by the sender. Review of System There may be information available, but it has not been provided by the sender. History of Present Illness There may be information available, but it has not been provided by the sender. Medications Administered Section Inactive Administered Medications - up to 3 most recent administrations Medication Order MAR Action Action Date Dose Rate Site leuprolide acetate (6 month) 45 mg IM syringe kit (LUPRON) 45 mg, INTRAMUSCULAR, ONCE (UP TO 30 DAYS AMB), 1 dose, On Sat12/12/21 at 1330, Hazardous Chemotherapy Drug: Use appropriate PPE. Given 12/12/2021 1:27 PM EDT 45 mg Buttocks, Right Chief Complaint and Reason for Visit Chief Complaint L HIP PAIN Chief Complaint L HIP PAIN Radiculopathy, lumbar region Chief Complaint Radiculopathy, lumba r region Lumbar LEFT HIP LEFT HIP TEMPLATING LT TOTAL HIP W YANNI LT TOTAL HIP W YANNI LT TOTAL HIP W YANNI LT TOTAL HIP W YANNI LT TOTAL HIP W YANNI LT TOTAL HIP W YANNI Reason for Visit Osteoarthritis of hi p Lumbar degenerative disc disease Osteoarthritis of left hip SI joint arthritis Osteoarthritis of hip S/P total left hip arthroplasty Chief Complaint Radiculopathy, lumba r region Lumbar LEFT HIP LEFT HIP TEMPLATING LT TOTAL HIP W YANNI LT TOTAL HIP W YANNI LT TOTAL HIP W YANNI LT TOTAL HIP W YANNI LT TOTAL HIP W YANNI LT TOTAL HIP W YANNI LEFT TOTAL HIP LT TOTAL HIP W YANNI left hip Reason for Visit Osteoarthritis of hi p Lumbar degenerative disc disease Osteoarthritis of left hip SI joint arthritis S/P total left hip arthroplasty Osteoarthritis of hip BPH (benign prostatic hyperplasia) Debility Depression GERD (gastroesophageal reflux disease) History of DVT (deep vein thrombosis) History of pulmonary embolism Prostate cancer S/P total left hip arthroplasty Hypertension Osteoarthritis of hip Orthopedic aftercare Chief Complaint LEFT HIP TEMPLATING LT TOTAL HIP W YANNI LT TOTAL HIP W YANNI LT TOTAL HIP W YANNI LT TOTAL HIP W YANNI LT TOTAL HIP W YANNI LT TOTAL HIP W YANNI LEFT TOTAL HIP LT TOTAL HIP W YANNI left hip left hip Room 1 leg pain Reason for Visit S/P total left hip a rthroplasty Osteoarthritis of hip BPH (benign prostatic hyperplasia) Debility Depression GERD (gastroesophageal reflux disease) History of DVT (deep vein thrombosis) History of pulmonary embolism Prostate cancer S/P total left hip arthroplasty Hypertension Osteoarthritis of hip Orthopedic aftercare Orthopedic aftercare Chief Complaint Admit Date abd pain September 03, 2024 4:2 7am Chief Complaint Admit Date abd pain September 03, 2024 4:2 7am fall September 05, 2024 5:2 1am Reason for Referral Specialty Diagnoses / Procedures Referred By Jennie concepcion Referred To Contact Radiology Diagnoses Vertebral artery insufficiency Procedures CTA head neck angio w and wo IV contrast Cedrick Newsome MD [address] [facility] [address] [place] [address] Referral ID Status Reason Start Date Expiration Date V isits Requested Visits Authorized [id number] Pending Review 07/12/2023 07/11/2024 1 1 Referral ID Status Reason Start Date Expiration Date Visits Re quested Visits Authorized [id number] Closed 07/12/2023 07/11/2024 1 1 Specialty Diagnoses / Procedures Referred By Jennie t Referred To Contact Physical Therapy Diagnoses Cervico-occipital neuralgia Vertigo Procedures [place] OFFICE/OUTPATIENT NEW HIGH MDM 60 MINUTES Suzan Dinh, KIRTI - DAMAGE ASSESSOR [address] [place] [address] Referral ID Status Reason Start Date Expiration Date Visits Requested Visits Authorized [id number] Pending Review Eval and Treat 08/21/2023 02/17/2024 99 99 Scheduling Instructions Please schedule patient with Maxwell Cabreran only. No neck massage - developed a headache after receiving neck massage at last PT session Dizziness with position changes; possible cervicogenic vertigo C-spine Xray 07/13: Alignment: There is grade 1 anterolisthesis at C4-5 and C5-6 with neck flexion which improves in neutral position and neck extension. Intervertebral Discs: Moderate disc height loss and anterior endplate spurring at C6-7. Minor degenerative changes of other disc spaces. Vertebrae: No compression deformities. Moderate to advanced multilevel facet degenerative changes bilaterally are similar to the prior study. Soft Tissues: No prevertebral swelling. Additional Source Comments (unrecognized sect ion and content) No Status Records FoundNo Status Records FoundNo Status Records FoundNo Status Records FoundNo Status Records FoundNo Status Records FoundNo Status Records FoundNo Status Records FoundNo Status Records FoundNo Status Records Found INFORMATION SOURCE (unrecogn ized section and content) DATE CREATED AUTHOR 11/13/2017 [facility] DATE CREATED AUTHOR AUTHOR'S ORGANIZ ATION 11/05/2019 [facility] DATE CREATED AUTHOR AUTHOR'S ORGANIZ ATION 10/28/2021 [facility] DATE CREATED AUTHOR AUTHOR'S ORGANIZ ATION 06/15/2024 [facility] DATE CREATED AUTHOR AUTHOR'S ORGANIZ ATION 08/05/2024 [facility] DATE CREATED AUTHOR AUTHOR'S ORGANIZ ATION 08/08/2024 [facility] DATE CREATED AUTHOR AUTHOR'S ORGANIZ ATION 08/24/2024 [facility] DATE CREATED AUTHOR AUTHOR'S ORGANIZ ATION 08/25/2024 [facility] DATE CREATED AUTHOR AUTHOR'S ORGANIZ ATION 09/26/2024 [facility] DATE CREATED AUTHOR AUTHOR'S ORGANIZ ATION 11/15/2024 [facility] Reason for Visit (unrecogniz ed section and content) Reason For Visit Description New/Est - 1st visit with physician 12/02 Preliminary reason f or visit data, not yet signed by the author as of lower back pain Reason Comments Refill Request Reason Comments Prostate Cancer Reason Comments Medication Problem Reason Comments Appointment Reason Comments Abdominal Pain RUQ Reason Comments Arm Pain Reason Comments Medication Problem Medication Question Reason Comments Prostate cancer (HCC) Specialty Diagnoses / Procedures Referred By Contac t Referred To Contact Urology / UROLOGY Diagnoses Malignant neoplasm of prostate 6 MONTH LUPRON INJECTION Procedures LEUPROLIDE ACETATE SUSPNSION 6 MONTH LUPRON INJECTION Mary Gonzalez MD [address] [place] [address] Exchange, Nurse Urol [address] [place] [address] Referral ID Status Reason Start Date Expiration Date Visits Requested Visits Authorized [id number] Authorized Patient Cleared - Admin/Chairm an/Director advise to proceed 08/10/2021 08/10/2022 2 2 Reason Comments Patient Question Reason Onset Date Comments Refill Request 02/01/2022 Refill Request 02/02/2022 Reason Comments New Patient Dizziness Headache Specialty Diagnoses / Procedures Referred By Contac t Referred To Contact Neurology Diagnoses Dizziness and giddiness Procedures [place] OFFICE/OUTPATIENT NEW MODERATE MDM 45 MINUTES Jermaine Church DO [address] [place] [address] Cedrick Newsome MD [address] [place] [address] Referral ID Status Reason Start Date Expiration Date V isits Requested Visits Authorized [id number] Pending Review 06/27/2023 06/27/2024 1 1 Reason Comments Prostate Cancer Specialty Diagnoses / Procedures Referred By Contac t Referred To Contact Urology / UROLOGY Diagnoses 6 month lupron seeing Lisa first Procedures LEUPROLIDE ACETATE SUSPNSION LUPRON Lisa, Mary F, MD [address] [place] [address] Exchange, Nurse Urol [address] [place] [address] Referral ID Status Reason Start Date Expiration Date V isits Requested Visits Authorized [id number] Authorized 11/30/2022 12/01/2023 99 99 Reason Comments Med Change Request Specialty Diagnoses / Procedures Referred By Jennie concepcion Referred To Contact Radiology Diagnoses Vertebral artery insufficiency Procedures CTA head neck angio w and wo IV contrast Cedrick Newsome MD [address] [place] [address] Referral ID Status Reason Start Date Expiration Date Visits Re quested Visits Authorized [id number] Closed 07/12/2023 07/11/2024 1 1 Reason Comments Follow-up Vertebral artery insufficiency Specialty Diagnoses / Procedures Referred By Jennie concepcion Referred To Contact Urology / UROLOGY Diagnoses 6 month roderick Gonzalez first Procedures LEUPROLIDE ACETATE SUSPNSION Mary Alicea MD [address] [place] [address] Exchange, Nurse Urol [address] [place] [address] Reason Comments right hand Laceration- on thumb and first finer cut them on rubber trimmer. Happened at 2pm today Reason Comments Suture / Staple Removal Reason Comments Fall Facial Injury Reason Comments Follow Up On antibiotics. Rece ntly in the hospital. Burning started last November Post Void Residual 9mL Source Comments (unrecognize d section and content) In the event this informatio n is protected by the Federal Confidentiality of Alcohol and Drug Abuse Patient Records regulations: The Federal rules restrict any use of the information to criminally investigate or prosecute any alcohol or drug abuse patient.[facility] the event this information is protected by the Federal Confidentiality of Alcohol and Drug Abuse Patient Records regulations: The Federal rules restrict any use of the information to criminally investigate or prosecute any alcohol or drug abuse patient.[facility] the event this information is protected by the Federal Confidentiality of Alcohol and Drug Abuse Patient Records regulations: The Federal rules restrict any use of the information to criminally investigate or prosecute any alcohol or drug abuse patient.[facility] the event this information is protected by the Federal Confidentiality of Alcohol and Drug Abuse Patient Records regulations: The Federal rules restrict any use of the information to criminally investigate or prosecute any alcohol or drug abuse patient.[facility] HospitalIn the event this information is protected by the Federal Confidentiality of Alcohol and Drug Abuse Patient Records regulations: The Federal rules restrict any use of the information to criminally investigate or prosecute any alcohol or drug abuse patient.[facility] HospitalIn the event this information is protected by the Federal Confidentiality of Alcohol and Drug Abuse Patient Records regulations: The Federal rules restrict any use of the information to criminally investigate or prosecute any alcohol or drug abuse patient.[facility] HospitalIn the event this information is protected by the Federal Confidentiality of Alcohol and Drug Abuse Patient Records regulations: The Federal rules restrict any use of the information to criminally investigate or prosecute any alcohol or drug abuse patient.[facility] HospitalIn the event this information is protected by the Federal Confidentiality of Alcohol and Drug Abuse Patient Records regulations: The Federal rules restrict any use of the information to criminally investigate or prosecute any alcohol or drug abuse patient.[facility] Hospital[facility] the event this information is protected by the Federal Confidentiality of Alcohol and Drug Abuse Patient Records regulations: The Federal rules restrict any use of the information to criminally investigate or prosecute any alcohol or drug abuse patient.[facility] Hospital[facility] the event this information is protected by the Federal Confidentiality of Alcohol and Drug Abuse Patient Records regulations: The Federal rules restrict any use of the information to criminally investigate or prosecute any alcohol or drug abuse patient.[facility] Hospital[facility] the event this information is protected by the Federal Confidentiality of Alcohol and Drug Abuse Patient Records regulations: The Federal rules restrict any use of the information to criminally investigate or prosecute any alcohol or drug abuse patient.[facility] HospitalIn the event this information is protected by the Federal Confidentiality of Alcohol and Drug Abuse Patient Records regulations: The Federal rules restrict any use of the information to criminally investigate or prosecute any alcohol or drug abuse patient.[facility] HospitalIn the event this information is protected by the Federal Confidentiality of Alcohol and Drug Abuse Patient Records regulations: The Federal rules restrict any use of the information to criminally investigate or prosecute any alcohol or drug abuse patient.[facility] HospitalIn the event this information is protected by the Federal Confidentiality of Alcohol and Drug Abuse Patient Records regulations: The Federal rules restrict any use of the information to criminally investigate or prosecute any alcohol or drug abuse patient.[facility] Hospital[facility] the event this information is protected by the Federal Confidentiality of Alcohol and Drug Abuse Patient Records regulations: The Federal rules restrict any use of the information to criminally investigate or prosecute any alcohol or drug abuse patient.[facility] Hospital[facility] the event this information is protected by the Federal Confidentiality of Alcohol and Drug Abuse Patient Records regulations: The Federal rules restrict any use of the information to criminally investigate or prosecute any alcohol or drug abuse patient.[facility] Hospital[facility] the event this information is protected by the Federal Confidentiality of Alcohol and Drug Abuse Patient Records regulations: The Federal rules restrict any use of the information to criminally investigate or prosecute any alcohol or drug abuse patient.[facility] HospitalIn the event this information is protected by the Federal Confidentiality of Alcohol and Drug Abuse Patient Records regulations: The Federal rules restrict any use of the information to criminally investigate or prosecute any alcohol or drug abuse patient.[facility] HospitalIn the event this information is protected by the Federal Confidentiality of Alcohol and Drug Abuse Patient Records regulations: The Federal rules restrict any use of the information to criminally investigate or prosecute any alcohol or drug abuse patient.[facility] HospitalIn the event this information is protected by the Federal Confidentiality of Alcohol and Drug Abuse Patient Records regulations: The Federal rules restrict any use of the information to criminally investigate or prosecute any alcohol or drug abuse patient.[facility] HospitalIn the event this information is protected by the Federal Confidentiality of Alcohol and Drug Abuse Patient Records regulations: The Federal rules restrict any use of the information to criminally investigate or prosecute any alcohol or drug abuse patient.[facility] HospitalIn the event this information is protected by the Federal Confidentiality of Alcohol and Drug Abuse Patient Records regulations: The Federal rules restrict any use of the information to criminally investigate or prosecute any alcohol or drug abuse patient.[facility] HospitalIn the event this information is protected by the Federal Confidentiality of Alcohol and Drug Abuse Patient Records regulations: The Federal rules restrict any use of the information to criminally investigate or prosecute any alcohol or drug abuse patient.[facility] HospitalIn the event this information is protected by the Federal Confidentiality of Alcohol and Drug Abuse Patient Records regulations: The Federal rules restrict any use of the information to criminally investigate or prosecute any alcohol or drug abuse patient.[facility] HospitalIn the event this information is protected by the Federal Confidentiality of Alcohol and Drug Abuse Patient Records regulations: The Federal rules restrict any use of the information to criminally investigate or prosecute any alcohol or drug abuse patient.[facility] HospitalIn the event this information is protected by the Federal Confidentiality of Alcohol and Drug Abuse Patient Records regulations: The Federal rules restrict any use of the information to criminally investigate or prosecute any alcohol or drug abuse patient.[facility] HospitalIn the event this information is protected by the Federal Confidentiality of Alcohol and Drug Abuse Patient Records regulations: The Federal rules restrict any use of the information to criminally investigate or prosecute any alcohol or drug abuse patient.[facility] HospitalIn the event this information is protected by the Federal Confidentiality of Alcohol and Drug Abuse Patient Records regulations: The Federal rules restrict any use of the information to criminally investigate or prosecute any alcohol or drug abuse patient.[facility] Care Teams (unrecognized sec tion and content) Volunteer Services Coordinator Relationship Specialty Start Date End Date RanjitJermaine, DO [address] [facility] [place] [address] PCP - General Family Practice 10/28/17 Volunteer Services Coordinator Relationship Specialty Start Date End Date RanjitJermaine [address] [place] [facility] [place] [address] PCP - General Family Practice 10/28/17 Volunteer Services Coordinator Relationship Specialty Start Date End Date RanjitJermaine [place] [facility] [place] [address] PCP - General Family Practice 10/28/17 Volunteer Services Coordinator Relationship Specialty Start Date End Date RanjitJermaine patel [address] [place] [address], [place] [address] PCP - General 11/04/15 Volunteer Services Coordinator Relationship Specialty Start Date End Date RanjitJermaine [address] [place] [address], [place] [address] PCP - General 11/04/15 Volunteer Services Coordinator Relationship Specialty Start Date End Date Jermaine Church [address] [place] [address] PCP - General Family Practice 10/28/17 Volunteer Services Coordinator Relationship Specialty Start Date End Date Jermaine Church [address] [place] [place] [address] PCP - General Family Practice 10/28/17 Volunteer Services Coordinator Relationship Specialty Start Date End Date Jermaine Church [facility] [place] [place] [address] PCP - General Family Practice 10/28/17 Volunteer Services Coordinator Relationship Specialty Start Date End Date Jermaine Church, DO [address] [place] [address] PCP - General Family Practice 10/28/17 Volunteer Services Coordinator Relationship Specialty Start Date End Date Jermaine Church DO [address] [place] [address] PCP - General Family Medicine 10/28/17 Team Status: Active Member Role Status Dates Dr. Jermaine Church , DO Primary Care Provider Active Team Status: Inactive Member Role Status Dates Dr. Jermaine Church DO Primary Care Provider Active Dr. Geovani Bhandari MD Attending Provider, Referring Pr ovider Active Volunteer Services Coordinator Relationship Specialty Start Date End Date Jermaine Church DO [address] [place], [place] [address] PCP - General Family Medicine 10/28/17 Team Status: Inactive Member Role Status Dates Dr. Jermaine Church DO Primary Care Provider, Referr ing Provider Active Dr. Ryley Melo , DO Attending Provider Active Team Status: Inactive Member Role Status Dates Dr. Jermaine Church DO Primary Care Provider, Referr ing Provider Active Dr. Tony Magaña DO Attending Provider Active Team Status: Active Member Role Status Dates Dr. Jermaine Church DO Primary Care Provider Active Dr. Tony Mgaaña DO Admit Provider, Attending Provider, Referring Provider, Other Provider Active Team Status: Active Member Role Status Dates Dr. Jermaine Church DO Primary Care Provider Active Dr. Tony Magaña DO Admit Provider, Referring Provider, Other Provider Active Dr. Miranda Chappell MD Other Provider Active Dr. Jazmyne Franklin MD Attending Provider Active Team Status: Active Member Role Status Dates Dr. Jermaine Church , DO Primary Care Provider Active Dr. Tony Magaña DO Admit Provider, Attending Provider, Referring Provider, Other Provider Active Dr. Renato Quintana MD Other Provider Active Team Status: Active Member Role Status Dates Dr. Jermaine Church DO Primary Care Provider Active Dr. Tony Magaña , DO Admit Provider, Referring Provider, Other Provider Active Dr. Renato Quintana MD Attending Provider, Other Provi curtis Active Team Status: Active Member Role Status Dates Dr. Jermaine Church , DO Primary Care Provider Active Dr. Tony Magaña , DO Admit Provider, Referring Provider, Other Provider Active Dr. Renato Quintana MD Other Provider Active MAXIM Rodriguez Attending Provider Active Team Status: Inactive Member Role Status Dates Dr. Jermaine Church , DO Primary Care Provider Active Dr. Tony Magaña , DO Admit Provider, Attending Provider, Referring Provider Active Dr. Renato Quintana MD Other Provider Active Team Status: Inactive Member Role Status Dates Dr. Jermaine Church , DO Primary Care Provider Active Dr. Tony Magaña , DO Attending Provider, Referring Provider Active Team Status: Active Member Role Status Dates Dr. Jermaine Church , DO Primary Care Provider Active Dr. Tony Magaña , DO Admit Provider, Other Provider Active Dr. Renato Quintana MD Attending Provider, Other Provi curtis Active Team Status: Inactive Member Role Status Dates Dr. Jermaine Church DO Primary Care Provider Active Dr. Mike Frost MD Admit Provider, Attending Provid er Active Volunteer Services Coordinator Relationship Specialty Start Date End Date Jermaine Church DO [address] [place] [address] PCP - General Family Medicine 10/28/17 Volunteer Services Coordinator Relationship Specialty Start Date End Date Jermaine Church DO [address] [place] [address] PCP - General 11/04/15 Volunteer Services Coordinator Relationship Specialty Start Date End Date Jermaine Church DO [address] [place] [phone] PCP - General 11/04/15 Volunteer Services Coordinator Relationship Specialty Start Date End Date Jermaine Church DO [address] [place] [address] PCP - General Family Medicine 10/28/17 Volunteer Services Coordinator Relationship Specialty Start Date End Date Mini ChurchshuaDO [address] [place] [phone] PCP - General 11/04/15 Volunteer Services Coordinator Relationship Specialty Start Date End Date Mini ChurchshuaDO [address] [place] [phone] PCP - General 11/04/15 Volunteer Services Coordinator Relationship Specialty Start Date End Date Jermaine Church DO [address] [place] [address] PCP - General Family Medicine 10/28/17 Volunteer Services Coordinator Relationship Specialty Start Date End Date Jermaine Church DO [address] [place] [address] PCP - General Family Medicine 10/28/17 Volunteer Services Coordinator Relationship Specialty Start Date End Date Jermaine Church DO [address] [place] [address] PCP - General Family Medicine 10/28/17 Volunteer Services Coordinator Relationship Specialty Start Date End Date Jermaine Church DO [address] [place] [address] PCP - General Family Medicine 10/28/17 Volunteer Services Coordinator Relationship Specialty Start Date End Date Jermaine Church DO [address] [place] [address] PCP - General Family Medicine 10/28/17 Volunteer Services Coordinator Relationship Specialty Start Date End Date [place] [address] PCP - General Family Medicine 10/28/17 Volunteer Services Coordinator Relationship Specialty Start Date End Date Jermaine Church DO [address] [place] [phone] PCP - General 11/04/15 Volunteer Services Coordinator Relationship Specialty Start Date End Date Jermaine Church DO [address] [place] [phone] PCP - General 11/04/15 Team Status: Inactive Member Role Status Dates Dr. Jermaine Church DO Primary Care Provider Active Dr. Leonel Carlos MD Attending Provider Active Team Status: Inactive Member Role Status Dates Dr. Jermaine Church DO Primary Care Provider Active Dr. Yair Pace MD Emergency Provider Active Volunteer Services Coordinator Relationship Specialty Start Date End Date Jermaine Church [place] [address] [place] [phone] PCP - General 11/04/15 Volunteer Services Coordinator Relationship Specialty Start Date End Date Jermaine Church DO [address] [place] [phone] PCP - General 11/04/15 Volunteer Services Coordinator Relationship Specialty Start Date End Date Jermaine Church DO [address] [place] [place] [address] PCP - General Family Medicine 08/03/24 Volunteer Services Coordinator Relationship Specialty Start Date End Date Jermaine [place] [address] PCP - [facility] Medicine 08/03/24 Volunteer Services Coordinator Relationship Specialty Start Date End Date Jermaine Church DO Jian [address] [place] [address] PCP - [facility] 10/28/17 Team Status: Inactive Member Role Status Dates Dr. Jermaine Church DO Primary Care Provider Active Start: September 03, 2024 End: September 03, 2024 Dr. Lizzie Rankin , Emergency Provider Active Start: September 03, 2024 End: September 03, 2024 Team Status: Inactive Member Role Status Dates Dr. Jermaine Church DO Primary Care Provider Active Start: September 05, 2024 End: September 05, 2024 Dr. Ben Kohler DO Emergency Provider Active Start: September 05, 2024 End: September 05, 2024 Volunteer Services Coordinator Relationship Specialty Start Date End Date Jermaine Church [address] [place] [address] PCP - [facility] 10/28/17 Scheduled Active and Recently Administ ered Medications (unrecognized section and content) Medication Order 09/23/2021 09/24/2021 09/25/2021 ketorolac (TORADOL) injection 15 mg (COMPLETED) Ketorolac is contraindicated in patients with advanced renal impairment and in patients at risk of renal failure due to volume depletion. For 65 years of age and older OR weight less than 50 kg, use 15 mg IV every 6 hours; MAX dose: 60 mg/day. Dose greater than 30 mg must be administered via intramuscular route. Do not administer for more than 5 days., 15 mg, IntraVENous, ONCE, 1 dose, On 09/25/21 at 0422, Do not administer for more than 5 days. 0545 (Given - Provid er: Varghese Boyd RN) ondansetron (ZOFRAN) injection 4 mg (COMPLETED) 4 mg, IntraVENous, ONCE, 1 dose, On Sat09/25/21 at 0542 0545 (Given - Provid er: Varghese Boyd, YESSENIA) PRN Medication Order 09/23/2021 09/24/2021 09/25/2021 iopamidol (ISOVUE-370) 76 % injection 75 mL (COMPLETED) 75 mL, IntraVENous, IMG ONCE PRN, 1 dose, Starting on Sat09/25/21 at 0646, Until Sat09/25/21 at 0654, Other 0654 (Given - Provid er: Nasreen More) Scheduled Medication Order 09/30/2021 10/01/2021 10/02/2021 apixaban (ELIQUIS) tablet 10 mg (COMPLETED) 10 mg, Oral, ONCE, 1 dose, On Sat10/02/21 at 1331, Indication of Use: Treatment-DVT/PE, ANTICOAGULANT 1345 (Given - Provid er: Ginger Alcala RN) Scheduled Medication Order 08/06/2024 08/07/2024 08/08/2024 acetaminophen (Tylenol) oral liquid 650 mg(Linked Group 1) 650 mg, oral, Every 6 hours, First dose on Traa 08/06/24 at 0000, Phase II/On Unit, Use liquid if patient unable to swallow tablet. 0555 (See Alternative - Provider: Emily Zambrano RN)1148 (See Alternative - Provider: Viki Lal RN)1741 (See Alternative - Provider: Viki Lal, YESSENIA)2355 (See Alternative - Provider: Emily Zambrano RN) 0539 (See Alternative - Provider: Emily Zambrano RN)1135 (See Alternative - Provider: Elizabeth Barriga, YESSENIA)1743 (See Alternative - Provider: Elizabeth Barriga, YESSENIA) 0103 (Given - Provider: Neetu Fuentes, YESSENIA)0652 (See Alternative - Provider: Neetu Fuentes, YESSENIA)1200 (Due)1800 (Due) acetaminophen (Tylenol) tablet 650 mg(Linked Group 1) 650 mg, oral, Every 6 hours, First dose on Tara 08/06/24 at 0000, Phase II/On Unit, If ordered PRN for pain, nurse is permitted to administer this medication for higher pain scores based on patient preference? Yes 0555 (Given - Provider: Emily Zambrano RN)1148 (Given - Provider: Viki Lal RN)1741 (Given - Provider: Viki Lal RN)2355 (Given - Provider: Emily Zambrano RN) 0539 (Given - Provider: Emily Zambrano RN)1135 (Given - Provider: Elizabeth Barriga RN)1743 (Given - Provider: Elizabeth Barriga RN) 0103 (See Alternative - Provider: Neetu Fuentes RN)0652 (Given - Provider: Neetu Fuentes RN)1200 (Due)1800 (Due) amLODIPine (Norvasc) tablet 2.5 mg 2.5 mg, oral, Daily RT, First dose on Sat08/08/24 at 0915 0914 (Given - Provider: Nancy Salinas RN) ampicillin-sulbactam (Unasyn) 3 g in sodium chloride 0.9% IV 100 mL 3 g, intravenous, at 200 mL/hr, Administer over 30 Minutes, Every 6 hours, First dose on Sat08/05/24 at 1745, Phase II/On Unit, Mini-Bag Plus/ADD-[place] bag, Suspected Indication (Select all that apply): Surgical Prophylaxis, Indications: Surgical Prophylaxis 0117 (New Bag - Provider: Emily Zambrano RN - Comment: due)0231 (Stopped - Provider: Emily Zambrano RN)0606 (New Bag - Provider: Emily Zambrano RN)0636 (Stopped - Provider: Emily Zambrano RN)1149 (New Bag - Provider: Viki Lal RN)1245 (Stopped - Provider: Viki Lal RN)1741 (New Bag - Provider: Viki Lal, YESSENIA)1818 (Stopped - Provider: Viki Lal, YESSENIA)2355 (New Bag - Provider: Emily Zambrano RN) 0035 (Stopped - Provider: Emily Zambrano RN)0539 (New Bag - Provider: Emily Zambrano RN)0632 (Stopped - Provider: Emily Zambrano RN)1135 (New Bag - Provider: Elizabeth Barriga RN)1215 (Stopped - Provider: Elizabeth Barriga RN)1743 (New Bag - Provider: Elizabeth Barriga RN)1818 (Stopped - Provider: Elizabeth Barriga RN) 0106 (New Bag - Provider: Neetu Fuentes RN)0223 (Stopped - Provider: Neetu Funetes RN)0609 (New Bag - Provider: Neetu Fuentes RN)0656 (Stopped - Provider: Neetu Fuentes RN)1145 (Due)1745 (Due)2345 (Due) chlorhexidine (Peridex) 0.12 % solution 15 mL 15 mL, Swish & Spit, 2 times daily, First dose on Sat08/05/24 at 2100, Phase II/On Unit, Do NOT swallow; Avoid eating for 2 to 3 hours after treatment. 0852 (Given - Provider: Viki Lal RN)210 (Given - Provider: Emily Zambrano RN) 0912 (Given - Provider: Elizabeth Barriga RN)204 (Given - Provider: Neetu Fuentes, YESSENIA) 0900 (Due)2100 (Due) enoxaparin (Lovenox) syringe 40 mg (CANCELED) 40 mg, subcutaneous, Every 24 hours, First dose on Sat08/05/24 at 2100, Phase II/On Unit 2104 (Given - Provider: Emily Zambrano, YESSENIA) ibuprofen 100 mg/5 mL suspension 600 mg(Linked Group 2) 600 mg, oral, 3 times daily, First dose on Sat08/05/24 at 2100, Phase II/On Unit, Use liquid if patient unable to swallow tablet. 0852 (See Alternative - Provider: Viki Lal RN)1530 (See Alternative - Provider: Viki Lal RN)210 (See Alternative - Provider: Emily Zambrano, YESSENIA) 0906 (See Alternative - Provider: Elizabeth Barriga RN)1456 (See Alternative - Provider: Elizabeth Barriga RN)2056 (See Alternative - Provider: Neetu Fuentes, YESSENIA) 0914 (See Alternative - Provider: Nancy Salinas RN)1500 (Due)2100 (Due) ibuprofen tablet 600 mg(Linked Group 2) 600 mg, oral, 3 times daily, First dose on Sat08/05/24 at 2100, Phase II/On Unit, May administer with food to reduce GI upset., If ordered PRN for pain, nurse is permitted to administer this medication for higher pain scores based on patient preference? Yes 0852 (Not Given - Provider: Viki Lal RN - Reason: Patient/family refused)1530 (Not Given - Provider: Viki Lal RN - Reason: Patient/family refused)2105 (Not Given - Provider: Emily Zambrano RN - Reason: Patient/family refused) 0906 (Not Given - Provider: Elizabeth Barriga RN - Reason: Patient/family refused - Comment: Patient refused due to being told by his primary doctor that he can not take it.)1456 (Not Given - Provider: Elizabeth Barriga RN - Reason: Patient/family refused - Comment: Patient stated his primary doctor told him he can not take ibuprofen)2055 (Not Given - Provider: Neetu Fuentes RN - Reason: Patient/family refused) 0914 (Given - Provider: Nancy Salinas RN)1500 (Due)2100 (Due) polyethylene glycol (Glycolax, Miralax) packet 17 g 17 g, oral, Daily, First dose on Sat08/06/24 at 1930 1935 (Given - Provider: Emily Zambrano RN) 0912 (Given - Provider: Elizabeth Barriga RN) 0914 (Given - Provider: Nancy Salinas RN) rivaroxaban (Xarelto) tablet 20 mg 20 mg, oral, Daily with evening meal, First dose on Sat08/07/24 at 1700, Best administered with food or immediately before tube feedings. If ordered via NG or G-tube route, crush and mix with 50 mL water; give within 4 hours of mixing. 1744 (Given - Provider: Elizabeth Barriga RN) 1700 (Due) Continuous Medication Order 08/06/2024 08/07/2024 08/08/2024 lactated Ringer's infusion () 50 mL/hr, intravenous, Continuous, Starting on Sat08/05/24 at 1800, For 1 day, Phase II/On Unit 1253 (Rate/Dose Verify - Provider: Viki Lal RN) PRN Medication Order 08/06/2024 08/07/2024 08/08/2024 ondansetron (Zofran) injection 4 mg(Linked Group 3) 4 mg, intravenous, Every 8 hours PRN, nausea/vomiting, first line, Starting on Sat08/05/24 at 1730, Phase II/On Unit, 1st Line. Give IV if patient is unable to take orally. If inadequate response within 60 minutes, proceed to next-line agent for same PRN reason or contact provider if no further options ordered. When administering via IV Push, administer over 3-5 minutes. 0554 (Given - Provider: Emily Zambrano, RN) ondansetron (Zofran) tablet 4 mg(Linked Group 3) 4 mg, oral, Every 8 hours PRN, nausea/vomiting, first line, Starting on Sat08/05/24 at 1730, Phase II/On Unit, 1st Line. Use oral route first, if possible. If inadequate response within 60 minutes, proceed to next-line agent for same PRN reason or contact provider if no further options ordered. 0554 (See Alternative - Provider: Emily Zambrano, YESSENIA) traMADol (Ultram) tablet 50 mg 50 mg, oral, Every 8 hours PRN, pain severe (7-10), first line, Starting on Sat08/05/24 at 1730, Max of 300 mg daily for patients > 75 years of age., If ordered PRN for pain, nurse is permitted to administer this medication for higher pain scores based on patient preference? Yes Linked Groups Order Group 1: acetaminophen (Tylenol) tablet 650 mgJump to med 650 mg, oral, Every 6 hours, First dose on Tara 08/06/24 at 0000, Phase II/On Unit, If ordered PRN for pain, nurse is permitted to administer this medication for higher pain scores based on patient preference? Yes Or acetaminophen (Tylenol) oral liquid 650 mgJump to med 650 mg, oral, Every 6 hours, First dose on Tara 08/06/24 at 0000, Phase II/On Unit, Use liquid if patient unable to swallow tablet. Group 2: ibuprofen tablet 600 mgJump to med 600 mg, oral, 3 times daily, First dose on Sat08/05/24 at 2100, Phase II/On Unit, May administer with food to reduce GI upset., If ordered PRN for pain, nurse is permitted to administer this medication for higher pain scores based on patient preference? Yes Or ibuprofen 100 mg/5 mL suspension 600 mgJump to med 600 mg, oral, 3 times daily, First dose on Sat08/05/24 at 2100, Phase II/On Unit, Use liquid if patient unable to swallow tablet. Group 3: ondansetron (Zofran) tablet 4 mgJump to med 4 mg, oral, Every 8 hours PRN, nausea/vomiting, first line, Starting on Sat08/05/24 at 1730, Phase II/On Unit, 1st Line. Use oral route first, if possible. If inadequate response within 60 minutes, proceed to next-line agent for same PRN reason or contact provider if no further options ordered. Or ondansetron (Zofran) injection 4 mgJump to med 4 mg, intravenous, Every 8 hours PRN, nausea/vomiting, first line, Starting on Sat08/05/24 at 1730, Phase II/On Unit, 1st Line. Give IV if patient is unable to take orally. If inadequate response within 60 minutes, proceed to next-line agent for same PRN reason or contact provider if no further options ordered. When administering via IV Push, administer over 3-5 minutes. Ordered Prescriptions (unrec ognized section and content) Prescription Sig Dispensed Refills Start Date End Da te apixaban (ELIQUIS) 5 MG TABS tablet Take 2 tablets by mouth 2 times daily for 7 days 28 tablet 0 10/02/2021 10/09/2021 Goals (unrecognized section and content) Goals may be documented in a n alternate sectionGoals may be documented in an alternate sectionGoals may be documented in an alternate sectionGoals may be documented in an alternate sectionGoals may be documented in an alternate section Inactive Administered Medications - up to 3 most recent administrations Administered Medications (un recognized section and content) Medication Order MAR Action Action Date Dose Rate Site leuprolide acetate (6 month) 45 mg IM syringe kit (LUPRON) 45 mg, INTRAMUSCULAR, ONCE (UP TO 30 DAYS AMB), 1 dose, On Tara 09/05/23 at 1600, Hazardous Chemotherapy Drug: Use appropriate PPE. Given 09/05/2023 3:00 PM EDT 45 mg Buttocks, Left FOR RECORDS PERTAINING TO PATIENTS WHO ARE OR HAVE BEEN ENROLLED IN A CHEMICAL DEPENDENCY/SUBSTANCEABUSE PROGRAM, SOME INFORMATION MAY BE OMITTED. This clinical summary was aggregated from multiple sources. Caution should be exercised in using it in the provision of clinical care. This summary normalizes information from multiple sources, and as a consequence, information in this document may materially change the coding, format and clinical context of patient data. In addition, data may be omitted in some cases. CLINICAL DECISIONS SHOULD BE BASED ON THE PRIMARY CLINICAL RECORDS. [facility]. provides no warranty or guarantee of the accuracy or completeness of information in this document.
== END 2024-11-16 00:23 | disposition left against medical advice (07) ==
LOC: ED 11-16 00:53
PROVIDERS: PCP Family Medicine
DX: Z53.21 Procedure and treatment not carried out due to patient leaving prior to being seen by health care provider (principal)

== ENCOUNTER 2025-01-20 03:17 | Emergency (ER) | payer MEDICARE, OTHER, SELFPAY ==
[2025-01-20 03:18] VITALS: BP 170/71; PULSE 93; RESP 18; TEMP 36.6; O2SAT 97; BMI 29.7
--- NOTE | 2025-01-20 03:41 | CT_ITS ---
PROCEDURE: ABDOMEN/PELVIS W IV CONT ONLY 01/20/2025 REASON FOR EXAM: ABD PAIN TECHNIQUE: Procedure Code: [id number] Modality: CT Procedure: ABDOMEN/PELVIS W IV CONT ONLY Coronal and Sagittal reconstruction series were provided. CONTRAST: isovue 370 VOLUME: 100 mL One or more dose reduction techniques were used (e.g., Automated exposure control, adjustment of the mA and/or kV according to patient size, use of iterative reconstruction technique. RADIATION DOSE SUMMARY: CTDlvol: 28.8 mGy DLP: 1402 mGycm COMPARISON: 09-03-2024 FINDINGS: Average sized liver showing homogenous parenchymal attenuation with multiple small cysts. No dilated intra or extra-hepatic biliary tracts. Gall bladder showing no radiodense calculi. No abnormal mural thickening. Clear surrounding fat planes with no sizeable collections. Atrophic changes of the pancreas with clear surrounding fat planes. The spleen, adrenal glands, and IVC are unremarkable. Vascular atheromatous calcifications. Both kidneys are of average size and showing smooth outline with preserved parenchymal thickness. No renal calculi. No hydronephrosis. Left renal hypodense parapelvic cysts. Distension of the urinary bladder showing no obvious masses. No obvious masses related to the pelvic viscera. The appendix appears unremarkable. No right iliac inflammatory changes. Colonic diverticulosis. No diverticulitis. Colonic fecal loading with diffuse wall thickening of the transverse and sigmoid colon, possible mild inflammatory changes/stercoral colitis. The small bowel loops are unremarkable. The stomach is unremarkable. Small hiatus hernia. No ascites or free air. Right and smaller left inguinal hernia containing fat. Small fat containing umbilical hernia No obvious pathologically enlarged lymph nodes. Scanned osseous structures show L5 over S1 1st to 2nd degree lytic anterolithesis. Thoracolumbar spondylosis. 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 Scanned lung bases show basal atelectatic changes. CT/Abdomen/Pelvis W IV Cont ONLY IMPRESSION: Stable study findings as detailed. No newly developed acute pelvi-abdominal abnormalities, collections or free air . Reading Location: [place] [id number]
[2025-01-20] MEDS: 0.9% Normal Saline (500mL Bag) 500 ML 999 ML IV (03:46)
--- OUTSIDE RECORDS SUMMARY | 2025-01-20 03:47 | XMS RPT_ITS | CCD ---
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 Jermaine Church Primary Care Provider [phone] Dr. Jermaine Church Referring Provider Dr. Ryley Melo Attending Provider Dr. Tony Magaña Attending Provider Dr. Tony Magaña Admit Provider Dr. Tony Magaña Referring Provider Dr. Tony Magaña Other Provider Dr. Miranda Chappell Other Provider Dr. Jazmyne Franklin Attending Provider Dr. Renato Quintana Attending Provider Dr. Renato Quintana Other Provider [phone] MAXIM Regan Attending Provider Ranjit DO, Jermaine Primary Care Provider Ranjit DOJermaine Primary Care Provider Ranjit DO, Jermaine Primary Care Provider Ranjit, Dr. Jermaine Elliott Primary Care Provider [phone] Dr. Tony Magaña Attending Provider Ranjit, Dr. Jermaine Elliott Referring Provider Dr. Leonel Carlos Attending Provider Ranjit DO, Jermaine Elliott Primary Care Provider JIMMY KULKARNI Referring Unavailable RANJIT, JERMAINE D Primary Care Unavailable RAFAEL MONCADA Attending Unavailable RANJIT, JERMAINE MACHUCA Primary Care Unavailable JIMMY KULKARNI Admitting Unavailable JIMMY KULKARNI Attending Unavailable SHIRA CRISTINA Referring Unavailable RANJIT, JERMAINE D Primary Care Unavailable Ranjit DO, Dr. Jermaine Elliott Primary Care Provider Dr. Lizzie Rankin DO Emergency Provider Andamanda CANALES, Dr. Contreras Emergency Provider MARY GONZALEZ Attending Unavailable RANJIT, JERMAINE MACHUCA Primary Care Unavailable MARY GONZALEZ Attending Unavailable RANJITJERMAINE Primary Care Unavailable Dr. Lizzie Rankin DO Attending Provider And Dr. Ben CANALES Attending Provider Provider, Ed Physician Emergency Provider Lucille gutierrez Ranjit, Jermaine D Primary Care Unavailable Lizzie Rankin Attending Unavailable Ben Kohler Attending Unavailable Ranjit, Jermaine D Primary Care Unavailable Provider, Ed Physician Attending Unavailab le Ranjit, Jermaine D Primary Care Unavailable ARPAN SUN Referring Unavailable RANJIT, JERMAINE Primary Care Unavailable TERRY RANDLE Attending Unavailable TERRY RANDLE Referring Unavailable RANJIT, JERMAINE Primary Care Unavailable ARPAN SUN Attending Unavailable RANJIT, JERMAINE Primary Care Unavailable RANJIT, JERMAINE Primary Care Unavailable NIVIA BROWN Attending Unavailable RANJIT, JERMAINE Primary Care Unavailable ARPAN SUN Attending Unavailable Allergies Allergy Classification Reported Allergen(s) Allergy Type Date of Onset Reaction(s) Facility (20 sources) Morphine; Translations: [MORPHINE] Drug Allergy 09-13-19 19 Nausea Only, Other: See Comments, Dizziness [facility], [place] Comment on above: Dizziness (20 sources) oxyCODONE; Translations: [OXYCODONE] Drug Allergy 03-21-20 17 Nausea Only, Other, Nausea/vomitin g [facility], [place] Comment on above: Dizziness (1 source) Morphine Drug Allergy 12-03-19 20 [facility] Work Phone: (1 source) oxyCODONE Drug Allergy 03-21-20 17 dizziness, headache [facility] Work Phone: (20 sources) Acetaminophen / oxyCODONE; Translations: [OXYCODONE-ACETAM INOPHEN] Drug Allergy 10-29-19 18 Unknown, Dizziness, Nausea/vomitin g [facility] (20 sources) Ofloxacin; Translations: [OFLOXACIN] Drug Allergy 09-13-19 19 Other: See Comments, Dizziness, Nausea/vomitin g [facility] (6 sources) Acetaminophen Drug Allergy 09-05-19 23 Other [facility] Comment on above: Dizziness (20 sources) HYDROcodone; Translations: [HYDROCODONE] Drug Allergy 07-11-19 23 Nausea/vomitin g [facility] Comment on above: dizziness (11 sources) Acetaminophen / HYDROcodone; Translations: [HYDROCODONE-ACET AMINOPHEN] Drug Allergy 08-04-19 Dizziness, Nausea/vomitin g, Nausea And Vomiting [facility] Work Phone: (1 source) ALLERGIES NOT ON FILE; Translations: [ALLERGIES NOT ON FILE] Propensity to adverse reactions (disorder) [facility] Repository (1 source) Acetaminophen Drug Allergy 11-16-19 [facility] Repository (1 source) HYDROcodone Drug Allergy 11-16-19 25 [facility] Repository (1 source) Morphine Drug Allergy 11-16-19 [facility] Rep[facility] (1 source) oxyCODONE Drug Allergy 11-16-19 [facility] Repository Medications Current Medications Medication Drug Class(es) Dates Sig (Normalized) Sig (Original) acetaminophen 325 mg oral tablet (9 sources) Start: 08-08-2024 End: 08-15-2024 take 2 [...] 6 HOURS as needed for pain 60 0 September 06, 2022 12:00am September 17, 2022 7:01pm 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 Active Comment on above: Take 5 mg by mouth o nce daily. ampicillin-sulbac coffman (Unasyn) 3 g in sodium chloride 0.9% IV 100 mL (1 source) Start: take 3 g intravenously every six hours 3 g, intravenous, at 200 mL/hr, Administer over 30 Minutes, Every 6 hours, First dose on Sat08/05/24 at 1745, Phase II/On Unit, Mini-Bag Plus/ADD-[place] bag, Suspected Indication (Select all that apply): [...] ug PO DAILY July 11, 2022 1:00am Check with primary doctor Start: 11-30-2019 D3-1000 25 MCG (1000 UT) TABS 1 tablet daily CHOLECALCIFEROL [id number] Hawa Staley LPN take 1 capsule by mo uth once daily Cholecalciferol, Vitamin D3, 1,000 unit cap Take 1,000 Units by mouth once daily. Active Cholecalciferol (VITAMIN D3 PO) Take by mouth daily. Active Cholecalciferol (VITAMIN D3 PO) Take by mouth daily. 0 Active Cholecalciferol (VITAMIN D3 PO) Take by mouth. 0 Active Comment on above: Take 1,000 Units by mouth once daily. diclofenac sodium 0.01 mg/mg topical gel (7 sources) Nonsteroidal Anti-inflammatory Drug Start: 5 Diclofenac Sodium (Voltaren) 1 % gel Apply 2 g topically 2 times daily. 50 g 11/16/2024 Active eye vitamin supplement (Ocuvite Eye Health Formula) [...] topically daily. 30 g 0 03/11/2019 Active lidocaine 0.05 mg/mg medicated patch (4 sources) Antiarrhythmic, Amide Local Anesthetic Start: 01-17-2025 End: 02-16-2025 apply 1 dose transdermal route once daily, then apply 1 dose transdermal route every twelve hours lidocaine (Lidoderm) 5 % patch Indications: Strain of neck muscle, initial encounter Apply 1 patch topically daily. Remove & discard patch within 12 hours or as directed by . 30 patch 01/17/2025 02/16/2025 Active Start: 01-17-2025 End: 01-17-2025 1 patch, TransDERmal, Admini ster over 12 Hours, Once, On 01/17/25 at 0220, For 1 dose, Apply patch to middle of neck. Patch may remain in place for up to 12 hours in any 24 hour period. meclizine hydrochloride 25 mg oral tablet (20 sources) Antiemetic Start: 01-20-2019 take 1 tablet by mouth every eight hours as needed meclizine (ANTIVERT) 25 mg tab Take 1 tablet by mouth three times daily as needed. 15 tablet 01/20/2019 Active Comment on above: Take 1 tablet by yanci three times daily as needed. metroNIDAZOLE 500 mg oral tablet (5 sources) Nitroimidazole Antimicrobial Start: 08-08-2024 End: 09-16-2024 take 1 tablet by mouth three times daily Metronidazole 500 mg tablet Active 500 mg PO THREE TIMES A DAY September 03, 2024 12:00am omega 5-gvr-kux-fish oil (FISH OIL) 100-160-1,000 mg cap (20 sources) omega 5-hhj-kzb-fish oil (FISH OIL) 100-160-1,000 mg cap Take [...] mg PO DAILY July 11, 2022 1:00am Check with primary doctor Start: 03-21-2017 OMEPRAZOLE 20 MG TBEC 1 tablet twice daily OMEPRAZOLE [id number] Hawa Staley LPN take 1 capsule by mo uth once daily before breakfast omeprazole (PriLOSEC) [address] capsule Take 20 mg by mouth every morning (before breakfast). Do not crush or chew. Active take 2 capsules by m outh once daily at bedtime omeprazole (PRILOSEC) 20 mg capsule Indications: Prostate cancer (HCC) , Elevated prostate specific antigen (PSA) Take 40 mg by mouth daily at bedtime. Active Comment on above: Take 40 mg [...] 8 hours as needed. polyethylene glycol 3350 95122 mg powder for oral solution (6 sources) Osmotic Laxative Start: 09-03-2024 End: 09-05-2024 Polyethylene Glycol 3350 (Laxaclear) 17 gram/dose powder Active 17 g PO DAILY as needed for constipation September 05, 2024 12:00am Start: 08-06-2024 17 g, oral, [place], First dose on Tara 08/06/24 at 1930 rivaroxaban 20 mg oral tablet (20 sources) Factor Xa Inhibitor Start: 09-04-2022 take 1 tablet by mouth once daily Rivaroxaban (Xarelto) 20 mg tablet Active 20 mg PO DAILY September 04, 2022 12:00am blood clots Start: 07-11-2022 End: 07-13-2022 take 1 tablet [...] mg / trimethoprim 160 mg oral tablet (10 sources) Dihydrofolate Reductase Inhibitor Antibacterial, Sulfonamide Antimicrobial [...] 1 tablet by yanci th once daily. Completed/Discontinued Medications Medication Drug Class(es) Dates Sig (Normalized) Sig (Original) amoxicillin 500 mg oral tablet (4 sources) Penicillin-class Antibacterial Start: 11-26-2022 End: 01-07-2023 take 4 tablets by mouth every hour Amoxicillin 500 mg tablet Discontinued 2000 mg PO ONCE 4 0 November 26, 2022 12:00am January 07, 2023 2:27pm take 4 tabs within 1 hr prior to dental procedure. Start: 11-26-2022 take 4 tablets by mo [facility] every hour Amoxicillin Active 2000 MG PO ONCE 4 November 26, 2022 12:00am take 4 tabs within 1 hr prior to dental procedure. calcium carbonate 1250 mg / cholecalciferol 400 unt chewable tablet (1 source) Vitamin D Start: 11-30-2019 CALCIUM 500+D HIGH POTENCY 500-400 MG-UNIT TABS 1 tablet daily CALCIUM CARBONATE-VITAMIN D [id number] Hawa Staley LPN calcium chloride 0.0014 meq/ml [...] DS 500-400 MG TABS 1 tablet daily GLUCOSAMINE-CHONDROIT IN [id number] Hawa Staley LPN doxazosin 1 mg oral tablet (20 sources) alpha-Adrene rgic Jose Start: 07-11-2022 End: 09-05-2024 take 1 tablet by mouth once daily Doxazosin (Cardura) 1 mg tablet Discontinued 1 mg PO DAILY July 11, 2022 1:00am September 05, 2024 5:27am BPH Start: 03-21-2017 take 1 tablet by yanci once daily Doxazosin 2 mg tablet Active 2 mg PO DAILY September 05, 2024 12:00am Comment on above: Take 2 mg by mouth d aily at bedtime. 0.4 ml enoxaparin sodium 100 mg/ml prefilled syringe (1 source) Low Molecular Weight Heparin Start: End: inject 40 mg by subcutaneous injection every twenty-four hours 40 mg, subcutaneous, Every 24 hours, First dose on Sat08/05/24 at 2100, Phase II/On Unit 0.5 ml HYDROmorphone hydrochloride 1 mg/ml prefilled syringe (1 source) Opioid Agonist Start: End: 0.5 mg, intravenous, Every 5 min PRN, pain severe (7-10), first line, Starting on Sat08/05/24 at 1338, Recovery (only), Max total of 4 mg regardless of dose. iopamidol (ISOVUE-370) 76 % injection 75 mL (1 source) Start: End: iopamidol (ISOVUE-370) 76 % injection 75 mL iopamidol (Isovue-370) 76 % injection 75 mL (2 sources) Start: End: iopamidol (Isovue-370) 76 % injection 75 mL 1 ml ketorolac tromethamine 30 mg/ml injection (2 sources) Nonsteroidal Anti-inflammatory Drug, Cyclooxygenase Inhibitor Start: 025 End: 15 mg, intravenous, Once, On Sat08/05/24 at [...] month) 45 mg IM syringe kit (LUPRON) megestrol acetate 20 mg oral tablet (20 sources) Progestin Start: 01-24-2022 End: 09-03-2024 take 1 tablet by mouth twice daily Megestrol 20 mg tablet Discontinued 20 mg PO TWICE A DAY August 22, 2022 12:00am September 03, 2024 4:38am hormone take 1 tablet by mouth once paul y megestrol (Megace) 20 MG tablet Take by mouth daily. Active Comment on above: Take 1 tablet (20 mg ) by mouth twice daily. TAKE 1 TABLET BY YANCI TWICE A DAY Take 1 tablet (20 mg ) by mouth two times a day. 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 OMEGA-3 FATTY ACIDS (1 source) Start: 2019 FISH OIL 1000 MG CAPS 1 capsule daily OMEGA-3 FATTY ACIDS [id number] Hawa Staley LPN oxyCODONE hydrochloride 5 mg oral tablet (6 sources) Opioid Agonist Start: 2022 End: 2022 take 5-10 mg by mouth every four hours as needed for pain Oxycodone 5 mg tablet Discontinued 5 - 10 mg PO Q4H as needed for pain 50 7 0 September 05, 2022 September 17, 2022 7:02pm Other acute postprocedural pain Other acute postprocedural pain pain scale 4-6: 5mg pain scale 7-10: 10mg predniSONE 20 mg oral tablet (8 sources) Start: 2024 End: 2024 take 20 mg by mouth once 20 mg, Oral, Once, On Sat11/16/24 at 2024, For 1 dose Start: 11-16-2024 End: 11-21-2024 take 2 tablets by mouth once daily predniSONE (Deltasone) 10 MG tablet Take 2 tablets (20 mg) by mouth daily for 5 days. 10 tablet 11/16/2024 11/21/2024 Active Start: 07-12-2023 End: 07-19-2023 take 5 tablets [...] day 15 tablet 0 07/12/2023 07/19/2023 Active Psyllium (1 source) Start: 11-30-2019 METAMUCIL 28.3 % POWD daily as directed PSYLLIUM [id number] Hawa Staley LPN 72 hr scopolamine 0.0139 mg/hr transdermal system (5 sources) Anticholinergic Start: 09-17-2022 End: 01-07-2023 Scopolamine Base 1 mg over 3 days Patch 3 Day Discontinued 1 NMA TD Q3D@1000 0 0 September 17, 2022 12:00am January 07, 2023 2:28pm Start: 09-17-2022 Scopolamine Ba se Active 1 PATCH TD Q3D@1000 0 September 17, 2022 12:00am Turmeric extract (1 source) Start: 11-30-2019 TURMERIC 500 M G TABS 1 tablet daily TURMERIC [id number] Hawa Staley LPN Problems Active Problems Problem Classification Problem Date Documented Da te Episodic/Chronic Abdominal pain (5 sources) Right upper quadrant pain; Translations: [Right upper quadrant pain] Onset: 5 Episodic Cancer of prostate (20 sources) Malignant tumor of prostate; Translations: [Malignant neoplasm of prostate] Onset: 9 01-18-2019 Chronic Cancer of prostate (6 sources) History of malignant neoplasm of prostate; Translations: [Personal history of malignant neoplasm of prostate] Onset: 5 08-18-2024 Episodic Esophageal disorders (20 sources) Gastroesophageal reflux disease; Translations: [Gastro-esophageal reflux disease without esophagitis] 01-18-2019 Chronic Essential hypertension (9 sources) Hypertensive disorder; Translations: [Essential (primary) hypertension] Onset: 5 09-06-2022 Chronic Fracture of lower limb (2 sources) Stress fracture, unspecified ankle, initial encounter for fracture; Translations: [Stress fracture, unspecified ankle, initial encounter for fracture] Onset: 5 Episodic Genitourinary symptoms and ill-defined conditions (13 sources) Nocturia; Translations: [Nocturia] Onset: 5 Episodic Headache; including migraine (2 sources) New daily persistent headache; Translations: [New daily persistent headache (NDPH)] 07-12-2023 Chronic Hyperplasia of prostate (7 sources) Benign prostatic hyperplasia; Translations: [Benign prostatic hyperplasia without lower urinary tract symptoms] 09-06-2022 Chronic Malaise and fatigue (7 sources) Asthenia; Translations: [Other malaise] 09-06-2022 Episodic Melanomas of skin (20 sources) Melanoma in situ of face; Translations: [Malignant melanoma] Onset: 7 03-25-2017 Chronic Mood disorders (7 sources) Depressive disorder; Translations: [Depression] 09-06-2022 Chronic Osteoarthritis (20 sources) Arthritis; Translations: [Unspecified osteoarthritis, unspecified site] 01-19-2019 Chronic Other acquired deformities (1 source) Spondylolisthesis L5/S1 level; Translations: [Spondylolisthesis, lumbosacral region] Onset: 0 12-03-2019 Chronic Other acquired deformities (3 sources) Lumbar spondylolisthesis; Translations: [Spondylolisthesis, lumbar region] 01-08-2023 Episodic Other aftercare (5 sources) Follow-up status; Translations: [Encounter for other orthopedic aftercare] 09-17-2022 Episodic Other aftercare (1 source) Long-term current use of anticoagulant; Translations: [assisted (current) use of anticoagulants] 09-13-2024 Episodic Other connective tissue disease (6 sources) History of total hip arthroplasty; Translations: [Presence of left artificial hip joint] 09-05-2022 Chronic Other connective tissue disease (5 sources) Presence of left artificial hip joint; Translations: [Hip joint replacement] 09-06-2022 Chronic Other connective tissue disease (4 sources) Pain in lower limb; Translations: [Pain in right leg] 12-15-2022 Episodic Other connective tissue disease (5 sources) Pain in left foot; Translations: [Pain in left foot] 11-16-2024 Episodic Other connective tissue disease (2 sources) Pain in left foot; Translations: [Pain in left foot] Onset: 5 Episodic Other gastrointestinal disorders (4 sources) Constipation; Translations: [Constipation, unspecified] Episodic Other injuries and conditions due to external causes (2 sources) Closed injury of head; Translations: [Unspecified injury of head, initial encounter] 09-05-2024 Episodic Other injuries and conditions due to external causes (1 source) Unspecified injury of head, initial encounter; Translations: [Unspecified injury of head, initial encounter] Onset: 5 Episodic Other nervous system disorders (6 sources) Acute postoperative pain; Translations: [Other acute postprocedural pain] 09-05-2022 Episodic Pathological fracture (4 sources) Stress fracture of ankle; Translations: [Stress fracture, unspecified ankle, initial encounter for fracture] 12-07-2024 Episodic Phlebitis; thrombophlebitis and thromboembolism (8 sources) Acute deep venous thrombosis of right axillary vein; Translations: [Acute embolism and thrombosis of right axillary vein] Episodic Pulmonary heart disease (7 sources) H/O: pulmonary embolus; Translations: [Personal history of pulmonary embolism] 09-06-2022 Episodic Residual codes; unclassified (1 source) Procedure and treatment not carried out due to patient leaving prior to being seen by health care provider; Translations: [Procedure and treatment not carried out due to patient leaving prior to being seen by health care provider] Onset: 5 Episodic Spondylosis; intervertebral disc disorders; other back problems (17 sources) Degeneration of lumbar intervertebral disc; Translations: [Sacroiliac disorder] Onset: 0 12-03-2019 Chronic Comment on above: advanced Spondylosis; intervertebral disc disorders; other back problems (7 sources) Cervico-occipital neuralgia; Translations: [Occipital neuralgia] 07-12-2023 Episodic Sprains and strains (12 sources) Strain of neck muscle; Translations: [Strain of muscle, fascia and tendon at neck level, initial encounter] Onset: 5 09-05-2024 Episodic Superficial injury; contusion (2 sources) Contusion of face; Translations: [Contusion of other part of head, initial encounter] 09-05-2024 Episodic Transient cerebral ischemia (3 sources) Vertebral artery syndrome; 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 Unclassified (1 source) Closed fracture of body of right mandible 08-03-2024 Past or Other Problems Problem Classification Problem Date Documented Da te Episodic/Chronic Conditions associated with dizziness or vertigo (20 sources) Vertigo; Translations: [Dizziness and giddiness] Onset: 01-17-2019 01-17-2019 Episodic E Codes: Fall (6 sources) Fall; Translations: [Unspecified fall, initial encounter] Onset: 06-14-2024 06-14-2024 Episodic Open wounds of extremities (10 sources) [...] neoplasm of prostate] Onset: 03-11-2024 01-19-2019 Episodic Skull and face fractures (11 sources) Fracture of bone of nasal sinus; Translations: [Maxillary fracture, unspecified side, initial encounter for closed fracture] Onset: 06-14-2024 06-14-2024 Episodic Unclassified (1 source) Problem Unclassified (2 sources) Sprain of left ankle 12-07-2024 Results Test Name Value Interpretation Reference Range Facility ED Provider Noteon ED Provider Note EMERGENCY DEPARTMENT ENCOUNTER Pt Name: See Paris Birthdate 1945 Date of evaluation: 01/17/2025 ED Provider: Nivia Brown MD CHIEF COMPLAINT Chief Complaint Patient presents with Neck Pain Posterior neck pain for past 3 nights, denies acute trauma. No urinary or bowel incontinence HISTORY OF PRESENT ILLNESS (Location/Symptom, Timing/Onset, Context/Setting, Quality, Duration, Modifying Factors, Severity) Note limiting factors. I wore appropriate PPE for the entirety of this encounter. HPI See Paris is a 79 y.o. who presents to the emergency department with neck pain. Patient states that for the last 3 nights he gets woken up from sleep after couple of hours with pain in the back of his posterior neck. States it is worse when he moves around. He took some Tylenol prior to coming in. States that the pain then resolves in the morning and throughout the day. He denies any numbness, weakness. Did state that he got a new mattress 2 weeks ago. Initially I had talked him about possibly the new mattress causing issues but then he states he has been having these issues for much longer and that is what led to getting the new mattress. However feels like the symptoms have been getting worse over the last couple of nights. Nursing Notes were reviewed. Limitations to history: None Outside historians: None REVIEW OF SYSTEMS Review of Systems Pertinent positives and negatives as per HPI. PAST MEDICAL HISTORY Medical History[1] SURGICAL HISTORY Surgical History[2] CURRENT MEDICATIONS Previous Medications AMITRIPTYLINE (ELAVIL) 10 MG TABLET Take 2 tablets (20 mg) by mouth every evening. TAKE 1 TAB BY MOUTH AT SUPPERTIME FOR 7 DAYS, THEN TAKE 2 TABS BY MOUTH SUPPERTIME THEREAFTER AMLODIPINE (NORVASC) 2.5 MG TABLET Take 2 mg by mouth daily. CALCIUM CARB-CHOLECALCIFEROL (CALCIUM/VITAMIN D PO) Take by mouth. CHOLECALCIFEROL (VITAMIN D3 PO) Take by mouth daily. DICLOFENAC SODIUM (VOLTAREN) 1 % GEL Apply 2 g topically 2 times daily. DOXAZOSIN (CARDURA) 2 MG TABLET Take 2 mg by mouth daily. MEGESTROL (MEGACE) 20 MG TABLET Take by mouth daily. OMEPRAZOLE (PRILOSEC) [address] CAPSULE Take 20 mg by mouth every morning (before breakfast). Do not crush or chew. RIVAROXABAN (XARELTO) 15 MG TABLET Take 1 tablet (15 mg) by mouth in the morning and 1 tablet (15 mg) before bedtime. Do all this for 21 days. ALLERGIES Oxycodone, Floxin otic [ofloxacin], Hydrocodone, Hydrocodone-acetamin ophen, Morphine, and Percocet [oxycodone-acetamino phen] FAMILY HISTORY Family History[3] SOCIAL HISTORY Social History[4] SCREENINGS PHYSICAL EXAM ED Triage Vitals 01/17/25 0159 Temp Heart Rate Resp BP 36.4 ?C (97.6 ?F) 63 15 (!) 176/82 SpO2 Temp Source Heart Rate Source Patient Position 98 % Temporal Monitor -- BP Location FiO2 (%) -- -- Physical Exam Vital Signs: Reviewed Constitutional: No acute distress Head: Normocephalic, atraumatic Eyes: No scleral injection, no scleral icterus, no conjunctival erythema ENT: Oropharynx clear, MMM Neck: Supple, trachea midline, no midline cervical spine tenderness, step-offs, deformities, full range of motion of the neck, patient however does have reproducible pain with exuq-ny-lrug movement of the neck Cardiovascular: RRR, no m/r/g Pulmonary: No evidence of labored breathing, clear to auscultation bilaterally Extremities: Warm, well perfused, no edema Neurological: Alert and oriented x 3, motor 5 out of 5 in flexion and extension of bilateral upper extremities at the elbow, extension of the wrist and fingers, 5 out of 5 flexion of all fingers, intact abduction and abduction of all fingers, intact abduction and adduction of bilateral shoulders, sensation intact to bilateral upper extremities as well as neck and posterior scalp Skin: Warm, dry, no rash DIAGNOSTIC RESULTS RADIOLOGY (Per Emergency Physician): Interpretation per the Radiologist below, if available at the time of this note: No orders to display LABS: Labs Reviewed - No data to display All other labs were within normal range or not returned as of this dictation. EMERGENCY DEPARTMENT COURSE and DIFFERENTIAL DIAGNOSIS/MDM: Vitals: Vitals: 01/17/2515801/17/25158 BP: (!) 176/82 Pulse: 63 Resp: 15 Temp: 36.4 ?C (97.6 ?F) TempSrc: Temporal SpO2: 98% Weight: 90.7 kg (200 lb) Height: 1.778 m (5' 10) The patient presented with a chief complaint of neck pain. The differential diagnosis associated with this patient's presentation includes muscle spasm, arthritis, cord compression, epidural abscess, epidural hematoma. Patient presenting with neck pain. 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 His exam at this time was unremarkable. He had normal strength and sensation. I have low suspicion for any significant spinal pathology. It does seem like at nighttime he likely is falling asleep in a position that (more content not included)... Normal [facility] CT ANKLE LEFT WO IV CONTRAST on 12-09-2024 CT ANKLE LEFT WO IV CONTRAST [facility] 1945 [id number] Exam Date/Time: 12/07/2024 07:32 Procedure: CT ANKLE LEFT WO IV CONTRAST Ordering Provider: RANDLE AARON Reason For Exam: sprain of unspecified ligament of left ankle, inital enocunter, stress fracture, left ankle,inital encouter Examination: CT left ankle Indication: sprain of unspecified ligament of left ankle, initial encounter, stress fracture, left ankle,inital encounter Technique: Axial CT images of the left ankle were obtained at 1 mm intervals Sagittal and coronal reconstructions were reviewed as well. Dose reduction was employed with automatic exposure control. Findings: No acute fracture. The articulations are grossly intact. Joint spaces are grossly maintained. Probable tiny remote healed periosteal/osseous avulsion along the anterior calcaneus on axial image 129. Diffuse arterial vascular calcification present along the posterior medial leg and extending into the plantar forefoot. The CT appearance of the musculature is unremarkable. IMPRESSION: Impression: No acute fracture. Tiny remote avulsion at the base of the fifth metatarsal. Tiny remote avulsion along the anterior calcaneus Report Dictated on Electronically Signed By: Susannah Swift MD Electronically Signed Date/Time: 12/09/2024 9:46 AM EDT Normal [facility] ED Nursing Noteon 11-16-2024 ED Nursing Note Patient to room 5 via [facility] with c/o left foot pain that started Saturday. Patient reports he saw his PCP today and was told Bursitis. Patient was then walking around [facility] and the pain increased. V/S obtained, call light within reach. Normal [facility] ED Provider Noteon ED Provider Note EMERGENCY DEPARTMENT ENCOUNTER Pt Name: See Paris Birthdate 1945 Date of evaluation: 11/16/2024 ED Provider: Arpan Sun DO CHIEF COMPLAINT Chief Complaint Patient presents with Foot Pain Ankle Pain HISTORY OF PRESENT ILLNESS (Location/Symptom, Timing/Onset, Context/Setting, Quality, Duration, Modifying Factors, Severity) Note limiting factors. I wore appropriate PPE for the entirety of this encounter. HPI See Paris is a 79 y.o. who presents to the emergency department with chief complaint of Left foot pain. Patient states his symptoms started about 3 days ago and he was seen today by his PCP. Diagnosed with onychomycosis of the toes and toe tendinitis. Says that he was walking around at the store after his appointment and the pain worsened so he called EMS. Patient denies any injuries. He is anticoagulated on Xarelto and has been compliant. He denies any other systemic symptoms. Nursing Notes were reviewed. Limitations to history: None Outside historians: EMS REVIEW OF SYSTEMS Review of Systems Pertinent positives and negatives as per HPI. PAST MEDICAL HISTORY Medical History[1] SURGICAL HISTORY Surgical History[2] CURRENT MEDICATIONS Previous Medications AMITRIPTYLINE (ELAVIL) 10 MG TABLET Take 2 tablets (20 mg) by mouth every evening. TAKE 1 TAB BY MOUTH AT SUPPERTIME FOR 7 DAYS, THEN TAKE 2 TABS BY MOUTH SUPPERTIME THEREAFTER AMLODIPINE (NORVASC) 2.5 MG TABLET Take 2 mg by mouth daily. CALCIUM CARB-CHOLECALCIFEROL (CALCIUM/VITAMIN D PO) Take by mouth. CHOLECALCIFEROL (VITAMIN D3 PO) Take by mouth daily. DOXAZOSIN (CARDURA) 2 MG TABLET Take 2 mg by mouth daily. MEGESTROL (MEGACE) 20 MG TABLET Take by mouth daily. OMEPRAZOLE (PRILOSEC) [address] CAPSULE Take 20 mg by mouth every morning (before breakfast). Do not crush or chew. RIVAROXABAN (XARELTO) 15 MG TABLET Take 1 tablet (15 mg) by mouth in the morning and 1 tablet (15 mg) before bedtime. Do all this for 21 days. ALLERGIES Oxycodone, Floxin otic [ofloxacin], Hydrocodone, Hydrocodone-acetamin ophen, Morphine, and Percocet [oxycodone-acetamino phen] FAMILY HISTORY Family History[3] SOCIAL HISTORY Social History[4] SCREENINGS [place] Coma Scale Best Eye Response: Spontaneous Best Verbal Response: Oriented Best Motor Response: Follows commands Alana Coma Scale Score: 15 PHYSICAL EXAM ED Triage Vitals [11/16/24 1901] Temp Heart Rate Resp BP 36.6 ?C (97.8 ?F) 54 16 (!) 154/72 SpO2 Temp Source Heart Rate Source Patient Position 99 % Oral Monitor -- BP Location FiO2 (%) -- -- Physical Exam Vitals and nursing note reviewed. Constitutional: General: He is not in acute distress. Appearance: He is well-developed. He is not ill-appearing or toxic-appearing. HENT: Head: Normocephalic and atraumatic. Cardiovascular: Rate and Rhythm: Normal rate and regular rhythm. Pulses: Normal pulses. Heart sounds: Normal heart sounds. No murmur heard. Pulmonary: Effort: Pulmonary effort is normal. No respiratory distress. Breath sounds: Normal breath sounds. Abdominal: General: There is no distension. Palpations: Abdomen is soft. Tenderness: There is no abdominal tenderness. Musculoskeletal: General: No swelling or tenderness. Normal range of motion. Cervical back: Normal range of motion and neck supple. Comments: No tenderness over the lateral or dorsal foot with palpation. No malleolar tenderness or fibular head. No edema of the calf. Compartments are soft. Skin: General: Skin is warm and dry. Capillary Refill: Capillary refill takes less than 2 seconds. Neurological: General: No focal deficit present. Mental Status: He is alert. Mental status is at baseline. Sensory: Sensory deficit (Diminish sensation to dull touch along the lateral aspect of the leg) present. Motor: No weakness. DIAGNOSTIC RESULTS RADIOLOGY (Per Emergency Physician): Interpretation per the Radiologist below, if available at the time of this note: XR foot 3+ views left Final Result No acute abnormality Report Dictated on Electronically Signed By: Patrick Sparrow MD Electronically Signed Date/Time: 11/16/2024 7:52 PM EDT XR tibia fibula 2 views left Final Result No acute abnormality Report Dictated on Electronically Signed By: Patrick Sparrow MD Electronically Signed Date/Time: 11/16/2024 7:52 PM EDT ED BEDSIDE ULTRASOUND: Performed by ED Physician - none LABS: Labs Reviewed - No data to display All other labs were within normal range or not returned as of this dictation. EMERGENCY DEPARTMENT COURSE and DIFFERENTIAL DIAGNOSIS/MDM: Vitals: Vitals: 11/16/24 1901 BP: (!) 154/72 Pulse: 54 Resp: 16 Temp: 36.6 ?C (97.8 ?F) TempSrc: Oral SpO2: 99% Weight: 88.5 kg (195 lb) Height: 1.778 m (5' 10) Diagnoses as of 11/16/242009 Left foot pain The patient presented with chief c (more content not included)... Normal [facility] No Panel Informationon 11-16 No acute abnormality Report Dictated on Electronically Signed By: Patrick Sparrow MD Electronically Signed Date/Time: 11/16/2024 7:52 PM EDT [facility] No Panel InformationOrdered By: Patrick Sparrow on 11-16-2024 [employer] Work Phone: XR Foot - left 3 Viewson Patient Name: SEE PARIS : 1945 Exam Date/Time: 11/16/2024 19:48 Procedure: XR FOOT 3+ VIEWS LEFT Ordering Provider: SUN MEJGON Reason For Exam: left foot pain LEFT TIBIA/FIBULA AND LEFT FOOT: CLINICAL INDICATION: left distal leg and foot pain. TECHNIQUE: AP and Lateral leg as well as AP, lateral and oblique foot COMPARISON: None. FINDINGS: There is no evidence for fracture or dislocation. Plantar calcaneal enthesophyte is noted. There is some spurring about the head of the first metatarsal and base of the fifth metatarsal. No other bone lesion is noted. Extensive arterial calcifications are noted. [facility] Patrick Sparrow MD - 11/16/2024 Patient Name: SEE PARIS DOB: 1945 Exam Date/Time: 11/16/2024 19:48 Procedure: XR FOOT 3+ VIEWS LEFT Ordering Provider: SUN MEJGON Reason For Exam: left foot pain LEFT TIBIA/FIBULA AND LEFT FOOT: CLINICAL INDICATION: left distal leg and foot pain. TECHNIQUE: AP and Lateral leg as well as AP, lateral and oblique foot COMPARISON: None. FINDINGS: There is no evidence for fracture or dislocation. Plantar calcaneal enthesophyte is noted. There is some spurring about the head of the first metatarsal and base of the fifth metatarsal. No other bone lesion is noted. Extensive arterial calcifications are noted. IMPRESSION: No acute abnormality Report Dictated on Electronically Signed By: Patrick Sparrow MD Electronically Signed Date/Time: 11/16/2024 7:52 PM EDT [facility] Radiology Study observation (narrative) [facility] alth XR Tibia and Fibula - left 2 Viewson 11-16-2024 Patient Name: SEE PARIS DOB: 1945 Exam Date/Time: 11/16/2024 19:48 Procedure: XR TIBIA FIBULA 2 VIEWS LEFT Ordering Provider: SUN MEJGON Reason For Exam: left distal leg pain LEFT TIBIA/FIBULA AND LEFT FOOT: CLINICAL INDICATION: left distal leg and foot pain. TECHNIQUE: AP and Lateral leg as well as AP, lateral and oblique foot COMPARISON: None. FINDINGS: There is no evidence for fracture or dislocation. Plantar calcaneal enthesophyte is noted. There is some spurring about the head of the first metatarsal and base of the fifth metatarsal. No other bone lesion is noted. Extensive arterial calcifications are noted. [facility] Patrick Sparrow MD - 11/16/2024 [facility] SEE PARIS [facility] 1945 [id number] Exam Date/Time: 11/16/2024 19:48 Procedure: XR TIBIA FIBULA 2 VIEWS LEFT Ordering Provider: SUN MEJGON Reason For Exam: left distal leg pain LEFT TIBIA/FIBULA AND LEFT FOOT: CLINICAL INDICATION: left distal leg and foot pain. TECHNIQUE: AP and Lateral leg as well as AP, lateral and oblique foot COMPARISON: None. FINDINGS: There is no evidence for fracture or dislocation. Plantar calcaneal enthesophyte is noted. There is some spurring about the head of the first metatarsal and base of the fifth metatarsal. No other bone lesion is noted. Extensive arterial calcifications are noted. 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 Normal [facility] 09-14-2024 [facility] Telephone (AKURFL) SEE PARIS ([id number]) 1945 M Date Time Provider Department 09/14/24 [...] Date Reviewed: 08/18/2024 Reviewed by: Rafael Moncada APRN.SPRAY PAINTING MACHINE OPERATOR, DNP - Fully Assessed Reason for Visit: [...] TABLET BY MOUTH EVERY DAY - omega 9-pji-yrp-fish oil (FISH OIL) 100-160-1,000 mg cap Take [...] Encounter Status:Closed by MARY GONZALEZ on 09/14/24 [facility] Brain/Head without Contrasto n 09-05-2024 Brain/Head without Contrast [facility] Imaging Services [address] [place] [address] [id number] Brain/Head without Contrast MR#: [id number] Acct: [id number] Name: SEE PARIS Rep #: [id number] : 1945 M 79 From: Jay Gonzales MD PCP: Dr. Jermaine Church DO Status: REG ER Study: Brain/Head without Contrast Date of Exam: 08/18 02/11 Exam# [id number] Ordering Dr: Ben Kohler DO PROCEDURE: BRAIN/HEAD [...] mass effect or calvarial fracture. Reading Location: [id number] CC: Dr. Jermaine Church DO; Ben Kohler DO Electromechanisms Design Drafter: Signed Normal [facility] Emergency Department Summary on 09-05-2024 Emergency Department Summary [facility] Medical Records Department [address] [place] [address] Emergency Department Summary 09/05/24 MR#: [id number] Acct: [id number] Name: SEE PARIS Rep #: [id number] : 1945 79 From: Ben Kohler DO [...] use and therefore comes in for evaluation. [facility] Medical History Arthritis History of prostate cancer [...] spasm noted (more content not included)... Normal [facility] Sinus/Facial Boneon 09-06-19 Sinus/Facial Bone [facility] Imaging Services [address] [place], [place] [id number] Sinus/Facial Bone MR#: [id number] Acct: [id number] Name: SEE PARIS Rep #: [id number] : 1945 M 79 From: Jay Gonzales MD PCP: Dr. Jermaine Church DO Status: REG ER Study: Sinus/Facial Bone Date of Exam: 09/05/24 Exam# [id number] Ordering Dr: Ben Kohler DO PROCEDURE: SINUS/FACIAL [...] air-fluid levels. Incidental osteoma right sphenoid sinus. [place] artifact from dental amalgam and fixation hardware. Status post right mandibular ORIF with plate and screws and non osseous united fracture plane, correlate with history. 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 TMJs appear normally located. Mastoids are clear. CT/Sinus/Facial Bone IMPRESSION: No acute fracture. Right cheek soft tissue swelling. Globes appear intact without retro bulbar stranding. [place] artifact from dental amalgam and fixation hardware. Status post right mandibular ORIF with plate and screws and non osseous united fracture plane, correlate with history. 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 Reading Location: [facility] CC: Dr. Jermaine Church DO; Ben Kohler DO Electromechanisms Design Drafter: Signed Normal [facility] Spine Cervical without Contr ason 09-05-2024 Spine Cervical without Contras [facility] Imaging Services [address] [place] [address] Spine Cervical without Contras MR#: [id number] Acct: [id number] Name: SEE PARIS Rep #: [id number] : 1945 M 79 From: Jay Gonzales MD PCP: Dr. Jermaine Church DO Status: REG ER Study: Spine Cervical without Contras Date of Exam: 0 09/05/24 Exam# [id number] Ordering Dr: Ben Kohler DO PROCEDURE: SPINE [...] IMPRESSION: No fracture or malalignment. Reading Location: [facility] CC: Dr. Jermaine Church DO; Ben Kohler DO Electromechanisms Design Drafter: Signed Normal [facility] Abdomen/Pelvis W IV Cont ONL Yon 09-03-2024 Abdomen/Pelvis W IV Cont ONLY [facility] Imaging Services [address] [place] [address] Abdomen/Pelvis W IV Cont ONLY MR#: [id number] Acct: [id number] Name: SEE PARIS Rep #: [id number] : 1945 M 79 From: Shailesh palacio MD PCP: Dr. Jermaine Church DO Status: REG ER Study: Abdomen/Pelvis W IV Cont ONLY Date of Exam: Exam# [id number] Ordering Dr: Lizzie Rankin DO PROCEDURE: ABDOMEN/PELVIS [...] bilateral pars defects, chronic finding. Reading Location: [place] [address] CC: Dr. Lizzie Rankin, DO; Dr. Jermaine Church, DO Electromechanisms Design Drafter: Signed Normal [facility] Absolute lymphocyte countOrd ered By: Lizzie Rankin on 09-03-2024 Lymphocytes Auto (Unsp spec) [#/Vol] 0.62 10*3/uL Low 0.83-4.51 [facility] Absolute neutrophil countOrd ered By: Lizzie Rankin on 09-03-2024 Neutrophils (Bld) [#/Vol] 5.5 10*3/uL 2.0-7.7 [facility] Anion gap in Serum or Plasma Ordered By: Lizzie Rankin on 09-03-2024 Anion gap [Moles/Vol] 12 mmol/L 5- [facility] Automated lymphocyte count a s percentage of total leukocytesOrdered By: Lizzie Rankin on 09-03-2024 Lymphocytes/100 WBC Auto (Unsp spec) 8.9 % Low 19- [facility] BUN/creatinine ratioOrdered By: Lizzie Rankin on 09-03-2024 Urea nitrogen/Creatinine [Mass ratio] 14.3 mg/mg 10- [facility] Basophil percentageOrdered B y: Lizzie Rankin on 09-03-2024 Basophils/100 WBC (Bld) 0.4 % 0-1 [facility] Bilirubin Test strip Ql (U)O rdered By: Lizzie Rankin on 09-03-2024 Bilirubin Ql (U) Negative Negative [facility] Bilirubin, totalOrdered By: Lizzie Rankin on 09-03-2024 Bilirubin [Mass/Vol] 0.41 mg/dL 0.00-1.30 [facility] CBC W/Diff, Automatedon 08-18 Absolute Lymph 0.62 X10 3/uL Low 0.83-4.51 [facility] Comment on above: Performed By: #### L 500.4050, L100.0100 #### [facility] Laboratory [address] [place], [address] Absolute Neut 5.5 X10 3/uL Normal 2.0-7.7 [facility] Comment on above: Performed By: #### L 500.4050, L100.0100 #### [facility] [address] [place], [address] Basophils/100 WBC (Bld) 0.4 % Normal 0-1 [facility] Comment on above: Performed By: #### L 500.4050, L100.0100 #### [facility] [address] [place], [address] Eosinophils/100 WBC (Bld) 2.2 % Normal 0-5 [facility] Comment on above: Performed By: #### L 500.4050, L100.0100 #### [facility] [address] [place], [address] Erythrocyte distribution width (RBC) [Ratio] 14.4 % Normal 11.6-14.6 [facility] Comment on above: Performed By: #### L 500.4050, L100.0100 #### [facility] [address] [place], [address] Hematocrit (Bld) [Volume fraction] 41.6 % Normal 40-54 [facility] Comment on above: Performed By: #### L 500.4050, L100.0100 #### [facility] [address] [place], [address] Hemoglobin (Bld) [Mass/Vol] 14.0 g/dL Normal 13.0-16.5 [facility] Comment on above: Performed By: #### L 500.4050, L100.0100 #### [facility] [address] [place], [address] IG% 0.700 Normal 0.0-0.9 [facility] Comment on above: Result Comment: IG% - Immature Granulocytes (promyelocytes, myelocytes and metamyelocytes) > 1% indicates that a LEFT SHIFT is Present. Performed By: #### L 500.4050, L100.0100 #### [facility] [address] [place], [address] Lymphocytes/100 WBC (Bld) 8.9 % Low 19-41 [facility] Comment on above: Performed By: #### L 500.4050, L100.0100 #### [facility] [address] [place], [address] MCH (RBC) [Entitic mass] 32.6 pg High 27.0-32.0 [facility] Comment on above: Performed By: #### L 500.4050, L100.0100 #### [facility] [address] [place], [address] MCHC (RBC) [Mass/Vol] 33.7 g/dL Normal 32-36 [facility] Comment on above: Performed By: #### L 500.4050, L100.0100 #### [facility] [address] [place], [address] MCV (RBC) [Entitic vol] 97.0 fL High 80-94 [facility] Comment on above: Performed By: #### L 500.4050, L100.0100 #### [facility] [address] [place], [address] Monocytes/100 WBC (Bld) 9.2 % Normal 0-10 [facility] Comment on above: Performed By: #### L 500.4050, L100.0100 #### [facility] [address] [place], [address] Neutrophils/100 WBC (Bld) 78.6 % High 47-70 [facility] Comment on above: Performed By: #### L 500.4050, L100.0100 #### [facility] [address] [place], [address] Nucleated RBC (Bld) [#/Vol] 0 10*3/uL Normal 0-5 [facility] Comment on above: Performed By: #### L 500.4050, L100.0100 #### [facility] [address] [place], [address] Platelet mean volume (Bld) [Entitic vol] 9.0 fL Normal 6.2-12.0 [facility] Comment on above: Performed By: #### L 500.4050, L100.0100 #### [facility] [address] [place], [address] Platelets (Bld) [#/Vol] 151 10*3/uL Normal 150-450 [facility] Comment on above: Performed By: #### L 500.4050, L100.0100 #### [facility] [address] [place], [address] RBC (Bld) [#/Vol] 4.29 10*6/uL Low 4.6-6.2 [facility] Comment on above: Performed By: #### L 500.4050, L100.0100 #### [facility] [address] [place], [address] RDW SD 51.3 fl High 35.1-43.9 [facility] Comment on above: Performed By: #### L 500.4050, L100.0100 #### [facility] [address] [place], [address] WBC (Bld) [#/Vol] 7.0 10*3/uL Normal 4.4-11.0 [facility] Comment on above: Performed By: #### L 500.4050, L100.0100 #### [facility] [address] [place], [address] Carbon dioxide, total [Moles /volume] in Central venous bloodOrdered By: Lizzie Rankin on 09-03-2024 CO2 [Moles/Vol] 21.6 mmol/L 21.0-32.0 [facility] Chloride assayOrdered By: Alexis Rankin on 09-03-2024 Chloride [Moles/Vol] 102 mmol/L 98-108 [facility] Comprehensive Metabolic Prof ilon 09-03-2024 Albumin [Mass/Vol] 4.0 g/dL Normal 3.4-4.8 [facility] Comment on above: Performed By: #### L 500.4050, L100.0100 #### [facility] [address] [place], [address] Albumin/Globulin [Mass ratio] 1.5 {ratio} Normal 0.9-2.4 [facility] Comment on above: Performed By: #### L 500.4050, L100.0100 #### [facility] [address] [place], [address] ALK PHOS 59 U/L Normal 40-129 [facility] Comment on above: Performed By: #### L 500.4050, L100.0100 #### [facility] [address] [place], [address] ALT [Catalytic activity/Vol] 25 U/L Normal <=46 [facility] Comment on above: Performed By: #### L 500.4050, L100.0100 #### [facility] [address] [place], [address] AST [Catalytic activity/Vol] 27 U/L Normal <=37 [facility] Comment on above: Performed By: #### L 500.4050, L100.0100 #### [facility] [address] [place], [address] Bilirubin [Mass/Vol] 0.41 mg/dL Normal 0.00-1.30 [facility] Comment on above: Performed By: #### L 500.4050, L100.0100 #### [facility] [address] [place], [address] BUN/CRE 14.3 RATIO Normal 10-20 [facility] Comment on above: Performed By: #### L 500.4050, L100.0100 #### [facility] [address] [place], [address] Calcium [Mass/Vol] 9.2 mg/dL Normal 7.6-11.0 [facility] Comment on above: Performed By: #### L 500.4050, L100.0100 #### [facility] [address] [place], [address] Chloride [Moles/Vol] 102 mmol/L Normal 98-108 [facility] Comment on above: Performed By: #### L 500.4050, L100.0100 #### [facility] [address] [place], [address] CO2 [Moles/Vol] 21.6 mmol/L Normal 21.0-32.0 [facility] Comment on above: Performed By: #### L 500.4050, L100.0100 #### [facility] [address] [place], [address] Creatinine [Mass/Vol] 1.14 mg/dL Normal 0.70-1.20 [facility] Comment on above: Performed By: #### L 500.4050, L100.0100 #### [facility] [address] [place], [address] ECRCL 59.10 ml/min Normal 50-250 [facility] Comment on above: Performed By: #### L 500.4050, L100.0100 #### [facility] [address] [place], [address] GAP 12 Normal 5-15 [facility] Comment on above: Performed By: #### L 500.4050, L100.0100 #### [facility] [address] [place], [address] GFR/1.73 sq M.predicted among non-blacks MDRD (S/P/Bld) [Vol rate/Area] 65 mL/min/{1.73_m2} Normal >60 [facility] Comment on above: Result Comment: mL/m in/1.73m2 CKD-EPI Creatinine Equation (2020) Performed By: #### L 500.4050, L100.0100 #### [facility] [address] [place], [address] Globulin (S) [Mass/Vol] 2.6 g/dL Normal 2.2-4.2 [facility] Comment on above: Performed By: #### L 500.4050, L100.0100 #### [facility] [address] [place], [address] Glucose [Mass/Vol] 113 mg/dL High 70-99 [facility] Comment on above: Performed By: #### L 500.4050, L100.0100 #### [facility] [address] [place], [address] Potassium [Moles/Vol] 4.0 mmol/L Normal 3.3-5.1 [facility] Comment on above: Performed By: #### L 500.4050, L100.0100 #### [facility] [address] [place], [address] Sodium [Moles/Vol] 135 mmol/L Normal 133-145 [facility] Comment on above: Performed By: #### L 500.4050, L100.0100 #### [facility] [address] [place], [address] T PROT 6.6 g/dL Normal 5.9-8.4 [facility] Comment on above: Performed By: #### L 500.4050, L100.0100 #### [facility] [address] [place], [address] Urea nitrogen [Mass/Vol] 16 mg/dL Normal 4-19 [facility] Comment on above: Performed By: #### L 500.4050, L100.0100 #### [facility] [address] [place], [address] Emergency Department Summary on 09-03-2024 Emergency Department Summary [facility] Medical Records Department [address] [place] [address] Emergency Department Summary 09/03/24 MR#: [id number] Acct: [id number] Name: SEE PARIS Rep #: [id number] : 1945 79 From: Lizzie Rankin DO [...] complaints or concerns reported at this time. [facility] Medical History Arthritis History of prostate cancer [...] no C (more content not included)... Normal [facility] Eosinophil percentageOrdered By: Lizzie Rankin on 09-03-2024 Eosinophils/100 WBC (Bld) 2.2 % 0-5 [facility] Epithelial cells.squamous LM Ql (Urine sed)Ordered By: Lizzie Rankin on 09-03-2024 Epithelial cells.squamous LM.HPF (Urine sed) [#/Area] 0 /[HPF] 0-5 [facility] Erythrocyte distribution wid th (RBC) [Ratio]Ordered By: Lizzie Rankin on 09-03-2024 Erythrocyte distribution width (RBC) [Entitic vol] 51.3 fL High 35.1-43.9 [facility] Erythrocyte distribution wid th ratioOrdered By: Lizzie Rankin on 09-03-2024 Erythrocyte distribution width (RBC) [Ratio] 14.4 % 11.6-14.6 [facility] Erythrocyte distribution wid th standard deviationOrdered By: Lizzie Rankin on 09-03-2024 Erythrocyte distribution width (RBC) [Ratio] 51.3 fl High 35.1-43.9 [facility] Estimation of creatinine jaycob aranceOrdered By: Lizzie Rankin on 09-03-2024 Estimated Creatinine Clearance Calc 59.10 ml/min 50-250 [facility] GFR/1.73 sq M.predicted zeina g non-blacks MDRD (S/P/Bld) [Vol rate/Area]Ordered By: Lizzie Rankin on 09-03-2024 Estimated GFR (MDRD) Non-Af Amer 65 >60 [facility] Comment on above: mL/min/1.73m2 CKD-EP I Creatinine Equation (2020) Glomerular filtration rate ( GFR) estimation/1.73 sq m using serum, plasma, or whole bOrdered By: Lizzie Rankin on 09-03-2024 GFR/1.73 sq M.predicted among non-blacks MDRD (S/P/Bld) [Vol rate/Area] 65 mL/min/{1.73_m2} >60 [facility] Comment on above: mL/min/1.73m2 CKD-EP I Creatinine Equation (2020) Glucose Ql (U)Ordered By: Alexis Rankin on 09-03-2024 Urine Glucose (UA) Normal mg/dl Normal [facility] Hematocrit Auto (Bld) [Volum e fraction]Ordered By: Lizzie Rankin on 09-03-2024 Hematocrit (Bld) [Volume fraction] 41.6 % 40-54 [facility] Hemoglobin measurementOrdere d By: Lizzie Rankin on 09-03-2024 Hemoglobin (Bld) [Mass/Vol] 14.0 g/dL 13.0-16.5 [facility] Immature granulocytes/100 WB C Auto (Bld)Ordered By: Lizzie Rankin on 09-03-2024 Immature granulocytes/100 WBC (Bld) 0.700 % 0.0-0.9 [facility] Comment on above: IG% - Immature Granu locytes (promyelocytes, myelocytes and metamyelocytes) > 1% indicates that a LEFT SHIFT is Present. Ketones Test strip Ql (U)Ord ered By: Lizzie Rankin on 09-03-2024 Ketones Ql (U) Negative Negative [facility] - Chemistry and C hemistry - challengeOrdered By: Lizzie Rankin on 09-03-2024 AST [Catalytic activity/Vol] 27 U/L <38 [facility] Lymphocytes Auto (Unsp spec) [#/Vol]Ordered By: Lizzie Rankin on 09-03-2024 Lymphocytes (Bld) [#/Vol] 0.62 10*3/uL Low 0.83-4.51 [facility] Lymphocytes/100 WBC Auto (Un sp spec)Ordered By: Lizzie Rankin on 09-03-2024 Lymphocytes/100 WBC (Bld) 8.9 % Low 19-41 [facility] MCV (mean corpuscular volume ) determinationOrdered By: Lizzie Rankin on 09-03-2024 MCV (RBC) [Entitic vol] 97.0 fL High 80-94 [facility] Mean corpuscular hemoglobin (MCH) determinationOrdered By: Lizzie Rankin on 09-03-2024 MCH (RBC) [Entitic mass] 32.6 pg High 27.0-32.0 [facility] Mean corpuscular hemoglobin concentration (MCHC) determinationOrdered By: Lizzie Rankin on 09-03-2024 MCHC (RBC) [Mass/Vol] 33.7 g/dL 32-36 [facility] Mean platelet volume determi nationOrdered By: Lizzie Rankin on 09-03-2024 Platelet mean volume (Bld) [Entitic vol] 9.0 fL 6.2-12.0 [facility] Microscopic analysis of urin e for red blood cells (RBC)Ordered By: Lizzie Rankin on 09-03-2024 Microscopic analysis of urine for red blood cells (RBC) 0-5 SEEN /hpf 0-5 [facility] Comment on above: Previous reported re sult: 0 SEEN /hpfEdited by: GEO on 09/03/24:1017 AMENDED REPORT 09/03/24 1017 RBC-UA previously reported as: 0 SEEN /hpf Urine RBC 0 SEEN /hpf 0-5 [facility] Urine RBC 0-5 SEEN /hpf 0-5 [facility] Comment on above: Previous reported re sult: 0 SEEN /hpfEdited by: GEO on 09/03/24:1017 AMENDED REPORT 09/03/24 1017 RBC-UA previously reported as: 0 SEEN /hpf Monocyte percentageOrdered B y: Lizzie Rankin on 09-03-2024 Monocytes/100 WBC (Bld) 9.2 % 0-10 [facility] Mucus LM Ql (Urine sed)Order ed By: Lizzie Rankin on 09-03-2024 Mucus Ql (Urine sed) 0 SEEN /hpf [facility] Neutrophil percentageOrdered By: Lizzie Rankin on 09-03-2024 Neutrophils/100 WBC (Bld) 78.6 % High 47-70 [facility] Nitrite Test strip Ql (U)Ord ered By: Lizzie Rankin on 09-03-2024 Nitrite Ql (U) Negative Negative [facility] Nucleated red blood cell per centageOrdered By: Lizzie Rankin on 09-03-2024 Nucleated RBC/100 WBC (Bld) [Ratio] 0 % 0-5 [facility] Platelet countOrdered By: Alexis Rankin on 09-03-2024 Platelets (Bld) [#/Vol] 151 10*3/uL 150-450 [facility] Potassium (Unsp spec) [Mass/ Vol]Ordered By: Lizzie Rankni on 09-03-2024 Potassium [Moles/Vol] 4.0 mmol/L 3.3-5.1 [facility] Potassium measurement (mass/ volume)Ordered By: Lizzie Rankin on 09-03-2024 Potassium (Unsp spec) [Mass/Vol] 4.0 mmol/L 3.3-5.1 [facility] Protein Test strip Ql (U)Ord ered By: Lizzie Rankin on 09-03-2024 Protein Ql (U) 15 mg/dl High Negative [facility] Protein Ql (U) TNP [facility] Comment on above: Test not performedPr evious reported result: 15 mg/dlEdited by: [facility] on 09/03/24:0950 AMENDED REPORT 09/03/24 0950 PROT DIPSTX previously reported as: 15 H mg/dl Protein, Urine (Random)on Protein (U) [Mass/Vol] 7.4 mg/dL Normal 0.0-12.0 [facility] Comment on above: Performed By: #### L 400.0001, L501.1930 #### [facility] [address] [place], [place], [address] RBC Auto (Bld) [#/Vol]Ordere d By: Lizzie Rankin on 09-03-2024 RBC (Bld) [#/Vol] 4.29 10*6/uL Low 4.6-6.2 [facility] Serum creatinine measurement (mass/volume)Ordered By: Lizzie Rankin on 09-03-2024 Creatinine [Mass/Vol] 1.14 mg/dL 0.70-1.20 [facility] Serum globulin measurementOr dered By: Lizzie Rankin on 09-03-2024 Globulin (S) [Mass/Vol] 2.6 g/dL 2.2-4.2 [facility] Serum glucose measurement (m ass/volume)Ordered By: Lizzie Rankin on 09-03-2024 Glucose [Mass/Vol] 113 mg/dL High 70-99 [facility] Serum or plasma alanine santos otransferase (ALT) measurementOrdered By: Lizzie Rankin on 09-03-2024 ALT [Catalytic activity/Vol] 25 U/L <47 [facility] Serum or plasma albumin melissa urement (mass/volume)Ordered By: Lizzie Rankin on 09-03-2024 Albumin [Mass/Vol] 4.0 g/dL 3.4-4.8 [facility] Serum or plasma albumin/glob ulin mass ratioOrdered By: Lizzie Rankin on 09-03-2024 Albumin/Globulin [Mass ratio] 1.5 {ratio} 0.9-2.4 [facility] Serum or plasma alkaline ashley sphatase measurementOrdered By: Lizzie Rankin on 09-03-2024 ALP [Catalytic activity/Vol] 59 U/L 40-129 [facility] Serum or plasma calcium melissa urement (mass/volume)Ordered By: Lizzie Rankin on 09-03-2024 Calcium [Mass/Vol] 9.2 mg/dL 7.6-11.0 [facility] Serum or plasma urea nitroge n measurement (mass/volume)Ordered By: Lizzie Rankin on 09-03-2024 Urea nitrogen [Mass/Vol] 16 mg/dL 4-19 [facility] Sodium levelOrdered By: Ramo Rankin on 09-03-2024 Sodium [Moles/Vol] 135 mmol/L 133-145 [facility] Specific gravity Refractomet ry (U) [Rel density]Ordered By: Lizzie Rankin on 09-03-2024 Specific gravity (U) [Rel density] See comment [facility] Comment on above: SEE URINE CHEMISTRY PROTIEN ORDER FOR THIS RESULT. Squamous epithelial cells de tection in urine sediment by light microscopyOrdered By: Lizzie Rankin on 09-03-2024 Epithelial cells.squamous LM Ql (Urine sed) 0 SEEN /hpf 0-5 [facility] Total proteinOrdered By: Alem Rankin on 09-03-2024 Protein [Mass/Vol] 6.6 g/dL 5.9-8.4 [facility] Urinalysis, Completeon 09-03 SP.GR. Normal [facility] Comment on above: Order Comment: CLEAN CATCH Result Comment: SEE URINE CHEMISTRY PROTIEN ORDER FOR THIS RESULT. Performed By: #### L 400.0001, L501.1930 #### [facility] [address] [place], [address] Urine blood detectionOrdered By: Lizzie Rankin on 09-03-2024 Urine Occult Blood 10 /ul High Negative [facility] Urine clarityOrdered By: Alem Rankin on 09-03-2024 Clarity (U) Clear Clear [facility] Urine color determinationOrd ered By: Lizzie Rankin on 09-03-2024 Color (U) Yellow Yellow [facility] Urine glucose detectionOrder ed By: Lizzie Rankin on 09-03-2024 Glucose Ql (U) Normal mg/dl Normal [facility] Urine leukocyte esterase det ection by dipstickOrdered By: Lizzie Rankin on 09-03-2024 Leukocyte esterase Test strip Ql (U) 25 /ul High Negative [facility] Urine pHOrdered By: Lizzie alvarenga on 09-03-2024 pH (U) 6.5 [pH] 5.0 - 8.0 [facility] Urine protein measurement (m ass/volume)Ordered By: Lizzie Rankin on 09-03-2024 Protein (U) [Mass/Vol] 7.4 mg/dL 0.0-12.0 [facility] Urine sediment bacteria coun t by microscopy (number/high power field)Ordered By: Lizzie Rankin on 09-03-2024 Bacteria LM.HPF (Urine sed) [#/Area] 0 /[HPF] None Seen [facility] Urine specific gravity measu rementOrdered By: Lizzie Rankin on 09-03-2024 Specific gravity (U) [Rel density] 1.010 1.002-1.030 [facility] Urine specific gravity measu rement by refractometryOrdered By: Lizzie Rankin on 09-03-2024 Specific gravity Refractometry (U) [Rel density] See comment [facility] Comment on above: SEE URINE CHEMISTRY PROTIEN ORDER FOR THIS RESULT. Urine urobilinogen measureme ntOrdered By: Lizzie Rankin on 09-03-2024 Urobilinogen Ql (U) Normal mg/dl Normal [facility] Urobilinogen Ql (U)Ordered B y: Lizzie Rankin on 09-03-2024 Urine Urobilinogen Normal mg/dl Normal [facility] White blood cell (WBC) count Ordered By: Lizzie Rankin on 09-03-2024 WBC (Bld) [#/Vol] 7.0 10*3/uL 4.4-11.0 [facility] White blood cell countOrdere d By: Lizzie Rankin on 09-03-2024 Urine WBC 0 SEEN /hpf 0-5 [facility] Urine WBC 0-5 SEEN /hpf 0-5 [facility] Comment on above: Previous reported re sult: 0 SEEN /hpfEdited by: GEO on 09/03/24:1017 AMENDED REPORT 09/03/24 1017 WBC previously reported as: 0 SEEN /hpf White blood cell count 0-5 SEEN /hpf 0-5 [facility] Comment on above: Previous reported re sult: 0 SEEN /hpfEdited by: GEO on 09/03/24:1017 AMENDED REPORT 09/03/24 1017 WBC previously reported as: 0 SEEN /hpf CNOVon 08-18-2024 CNOV Office Visit (UROLSF) SEE PARIS ([id number]) 1945 M Date Time Provider Department 08/18/24 10:30 AM RAFAEL MONCADA UROLSF During your visit today, we recorded the following information about you: Weight Height 88 kg 1.778 m Rafael Moncada APRN.CASTRO, VARGAS 08/18/2024 11:04 AM Signed [facility] M[facility] PATIENT - [...] of skin (more content not included)... Normal [facility] UA DIP, URINE (POC)on 2024 BILIRUBIN UA (POCT) Negative Negative [facility] CLARITY UA (POCT) Slightly Cloudy Cl [facility] COLOR UA (POCT) [facility] GLUCOSE UA (POCT) Negative Negative mg/dL [facility] Hemoglobin Ql (U) Negative Negative [facility] KETONE UA (POCT) Trace Negative mg/dL [facility] LEUKOCYTES UA (POCT) Negative Negative [facility] NITRITE UA (POCT) Negative Negative [facility] PH UA (POCT) 5.5 4.5 - 8.0 [facility] Protein Ql (U) Negative Negative mg/dL [facility] SPECIFIC GRAVITY UA (POCT) >=1.030 1.005 - 1.030 [facility] UROBILINOGEN UA (POCT) 0.2 Yin l E.U./dL [facility] Location:[facility], [address] [place] [address], [place], [place], [address] [place] [address] POINT OF CARE [facility] Bacteria identifiedon 2024 Bacteria identified Cx Nom (Bld) Test: Blood Culture Specimen Source: Peripheral Venipuncture Specimen Type: Blood culture Specimen Date: 08/07/2024 0705 Result Date: 08/11/2024 1002 Result Status: Final result Abnormal: No Resulting Lab: [facility] [address] [place] [address] CULTURE No growth at 4 days - FINAL REPORT Normal [facility] Comment on above: Performed By: #### 6 00-7 #### ELIZABETH Yadav ([id number]) [facility] ([facility]) [id number] [place] [address] Basic metabolic 2000 panelon 08-06-2024 Anion gap [Moles/Vol] 12 mmol/L 10 - 2 0 mmol/L [facility] Calcium [Mass/Vol] 8.9 mg/dL 8.6 - 10. 6 mg/dL [facility] Chloride [Moles/Vol] 106 mmol/L 98 - 10 7 mmol/L [facility] CO2 [Moles/Vol] 23 mmol/L 21 - 32 mmol/L [facility] Creatinine [Mass/Vol] 0.9 mg/dL 0.50 - 1.30 mg/dL [facility] GFR/1.73 sq M.predicted among non-blacks MDRD (S/P/Bld) [Vol rate/Area] 87 mL/min/{1.73_m2} - PINF [facility] Comment on above: Calculations of kavin mated GFR are performed using the 2020 CKD-EPI Study Refit equation without the race variable for the IDMS-Traceable creatinine methods. https://jasn.asnjournals.org/content/early//ASN.648 1254868 Glucose [Mass/Vol] 112 mg/dL High 74 - 99 mg/dL [facility] Interpretation and review of laboratory results Abnormal [facility] Potassium [Moles/Vol] 4.1 mmol/L 3.5 - 5.3 mmol/L [facility] Sodium [Moles/Vol] 137 mmol/L 136 - 145 mmol/L [facility] Urea nitrogen [Mass/Vol] 20 mg/dL 6 - 23 mg/d L [facility] Anion gap [Moles/Vol] 12 mmol/L Normal 10-20 [facility] Comment on above: Performed By: #### 2 4321-2 #### ELIZABETH Yadav ([id number]) [facility] ([facility]) [address] [place] [address] Calcium [Mass/Vol] 8.9 mg/dL Normal 8.6-10.6 [facility] Comment on above: Performed By: #### 2 4321-2 #### ELIZABETH Yadav ([id number]) [facility] ([facility]) [address] [place] [address] Chloride [Moles/Vol] 106 mmol/L Normal 98-[address] [facility] Comment on above: Performed By: #### 2 4321-2 #### ELIZABETH Yadav ([id number]) [facility] ([facility]) [address] [place] [address] CO2 [Moles/Vol] 23 mmol/L Normal 21-32 [facility] Comment on above: Performed By: #### 2 4321-2 #### ELIZABETH Yadav ([id number]) [facility] ([facility]) [address] [place] [address] Creatinine [Mass/Vol] 0.90 mg/dL Normal 0.50-1.30 [facility] Comment on above: Performed By: #### 2 4321-2 #### ELIZABETH Yadav ([id number]) [facility] ([facility]) [address] [place] [address] Glomerular filtration rate/1.73 sq M.predicted 87 mL/min/1.73m*2 Normal >60 [facility] Comment on above: Result Comment: Calc ulations of estimated GFR are performed using the 2020 CKD-EPI Study Refit equation without the race variable for the IDMS-Traceable creatinine methods. https://jasn.asnjournals.org/content//ASN.626 0111722 Performed By: #### 2 4321-2 #### ELIZABETH Yadav ([id number]) [facility] ([facility]) [address] [place] [address] Glucose [Mass/Vol] 112 mg/dL High 74-99 [facility] Comment on above: Performed By: #### 2 4321-2 #### ELIZABETH Yadav ([id number]) [facility] ([facility]) [address] [place] [address] Potassium [Moles/Vol] 4.1 mmol/L Normal 3.5-5.3 [facility] Comment on above: Performed By: #### 2 4321-2 #### ELIZABETH Yadav ([id number]) [facility] ([facility]) [id number] [place] [address] Sodium [Moles/Vol] 137 mmol/L Normal 136-145 [facility] Comment on above: Performed By: #### 2 4321-2 #### ELIZABETH Yadav ([id number]) [facility] ([facility]) [address] [place] [address] Urea nitrogen [Mass/Vol] 20 mg/dL Normal 6-23 [facility] Comment on above: Performed By: #### 2 4321-2 #### ELIZABETH Yadav ([id number]) [facility] ([facility]) [address] [place] [address] CBC panel Auto (Bld)on 08-06 Erythrocyte distribution width (RBC) [Ratio] 13.4 % 11.5 - 14.5 % [facility] Hematocrit (Bld) [Volume fraction] 40.1 % Low 41.0 - 52.0 % [facility] Hemoglobin (Bld) [Mass/Vol] 12.3 g/dL Low 13.5 - 17.5 g/dL [facility] Interpretation and review of laboratory results Abnormal [facility] MCH (RBC) [Entitic mass] 30.9 pg 26. 0 - 34.0 pg [facility] MCHC (RBC) [Mass/Vol] 30.7 g/dL Low 32.0 - 36.0 g/dL [facility] MCV (RBC) [Entitic vol] 101 fL High 80 - 100 fL [facility] Nucleated RBC/100 WBC (Bld) [Ratio] 0 % [facility] Platelets (Bld) [#/Vol] 146 10*3/uL Low [facility] RBC (Bld) [#/Vol] 3.98 10*6/uL [facility] WBC (Bld) [#/Vol] 11 10*3/uL [facility] Erythrocyte distribution width (RBC) [Ratio] 13.4 % Normal 11.5-14.5 [facility] Comment on above: Performed By: #### 5 8410-2 #### ELIZABETH Yadav ([id number]) [facility] ([facility]) [address] [place] [address] Hematocrit (Bld) [Volume fraction] 40.1 % Low 41.0-52.0 [facility] Comment on above: Performed By: #### 5 8410-2 #### ELIZABETH Yadav ([id number]) [facility] ([facility]) [address] [place] [address] Hemoglobin (Bld) [Mass/Vol] 12.3 g/dL Low 13.5-17.5 [facility] Comment on above: Performed By: #### 5 8410-2 #### ELIZABETH Yadav ([id number]) [facility] ([facility]) [address] [place] [address] MCH (RBC) [Entitic mass] 30.9 pg Normal 26.0-34.0 [facility] Comment on above: Performed By: #### 5 8410-2 #### ELIZABETH Yadav ([id number]) [facility] ([facility]) [address] [place] [address] MCHC (RBC) [Mass/Vol] 30.7 g/dL Low 32.0-36.0 [facility] Comment on above: Performed By: #### 5 8410-2 #### ELIAZBETH Yadav ([id number]) [facility] ([facility]) [address] [place] [address] MCV (RBC) [Entitic vol] 101 fL High 80-100 [facility] Comment on above: Performed By: #### 5 8410-2 #### ELIZABETH Yadav ([id number]) [facility] ([facility]) [address] [place] [address] Nucleated RBC/100 WBC (Bld) [Ratio] 0.0 /100 WBCs Normal 0.0-0.0 [facility] Comment on above: Performed By: #### 5 8410-2 #### ELIZABETH RIOS L ([id number]) [facility] ([facility]) [address] [place] [address] Platelets (Bld) [#/Vol] 146 x10*3/uL Low 150-450 [facility] Comment on above: Performed By: #### 5 8410-2 #### ELIZABETH Yadav ([id number]) [facility] ([facility]) [id number] [place] [address] RBC (Bld) [#/Vol] 3.98 x10*6/uL Low 4.50-5.[address] [facility] Comment on above: Performed By: #### 5 8410-2 #### ELIZABETH Yadav ([id number]) [facility] ([facility]) [address] [place] [address] WBC (Bld) [#/Vol] 11.0 x10*3/uL Normal 4.4-11.[address] [facility] Comment on above: Performed By: #### 5 8410-2 #### ELIZABETH Yadav ([id number]) [facility] ([facility]) [address] [place] [address] [facility] Postsurgical changes in the right aspect of the mandible with intact hardware. MACRO: None Signed by: Aydin Grigsby 08/06/2024 8:33 AM Dictation workstation: [id number] [facility] Interpreted By: Aydin Grigsby, STUDY: XR PANOREX; ; 08/05/2024 9:53 pm INDICATION: Signs/Symptoms:Post- op evaluation. COMPARISON: None. ACCESSION NUMBER(S): [id number] ORDERING CLINICIAN: JIMMY KULKARNI FINDINGS: Orthopantomogram, single view Postsurgical change in the right aspect of the mandible. The hardware is intact. Several teeth are missing. No periapical abscess seen. [facility] Aydin Grigsby MD - 08/06/2024 Interpreted By: Aydin Grigsby, STUDY: XR PANOREX; ; 08/05/2024 9:53 pm INDICATION: Signs/Symptoms:Post- op evaluation. COMPARISON: None. ACCESSION NUMBER(S): [id number] ORDERING CLINICIAN: JIMMY KULKARNI FINDINGS: Orthopantomogram, single view Postsurgical change in the right aspect of the mandible. The hardware is intact. Several teeth are missing. No periapical abscess seen. IMPRESSION: Postsurgical changes in the right aspect of the mandible with intact hardware. MACRO: None Signed by: Aydin Grigsby 08/06/2024 8:33 AM Dictation workstation: [id number] [facility] Work Phone: XR tomography Mandible Panor amicOrdered By: Aydin Grigsby on 08-06-2024 [facility] Work Phone: Bacteria identifiedon 2024 Bacteria identified Cx Nom (Unsp spec) Test: Tissue/Wound Culture/Smear Specimen Source: SOFT TISSUE BIOPSY Specimen Type: Swab Specimen Date: 08/05/20241127 Result Date: 08/09/2024950 Result Status: Final result Abnormal: Yes Resulting Lab: [facility] [id number] [place] [address] CULTURE (4+) Abundant Staphylococcus epidermidis (Abnormal) (1+) Rare Mixed Gram-Positive Bacteria STAIN (1+) Rare Polymorphonuclear leukocytes (2+) Few Gram positive cocci SUSCEPTIBILITY Staphylococcus epidermidis METHOD MICROSCAN --------- --------- CLINDAMYCIN >4.000 ug/ml Resistant ERYTHROMYCIN 4 ug/ml Intermediate OXACILLIN <=0.25 ug/ml Susceptible TETRACYCLINE >8.000 ug/ml Resistant TRIMETHOPRIM/SULFAME THOXAZOLE <=0.5/9.5 ug/ml Susceptible VANCOMYCIN 1.000 ug/ml Susceptible Abnormal [facility] Comment on above: Performed By: #### 6 463-4 #### ELIZABETH Yadav ([id number]) [facility] ([facility]) [address] [place] [address] Fungus identifiedon 08-06-19 Fungus identified Cx Nom (Unsp spec) Test: Fungal Culture/Smear Specimen Source: SOFT TISSUE BIOPSY Specimen Type: Swab Specimen Date: 08/05/20241127 Result Date: 08/24/20241226 Result Status: Final result Resulting Lab: [facility] [address] [place] [address] CULTURE No fungi isolated. STAIN No fungal elements seen Normal [facility] Comment on above: Performed By: #### 5 80-1 #### ELIZABETH Yadav ([id number]) [facility] ([facility]) [address] [place] [address] Surgical pathology studyon 0 08-05-2024 Surgical pathology study Pathology report.total SEE COMMENT Surgical Pathology Case: [id number] Authorizing Provider: Jimmy Kulkarni DDS Collected: 08/05/2024 1215 Ordering Location: [facility] Received: 08/05/[address] [place] [address] OR Pathologist: Chas Huang DDS Specimens: A) [...] entirely submitted in 2 cassettes, following decalcification. [facility] Summary of Sections: Specimen Label Site A [...] specimen is entirely submitted in one cassette. [facility] C: Received in formalin, labeled with the [...] inked blue and the specimen is sectioned. Horse Riding Coach Or Instructor sections are submitted in one cassette. [facility] Comment on above: Order Comment: Pre-o p diagnosis: Fracture of Unspecified part of Body of Left Mandible, initial encounter for closed fracture [S02.602XA] XR PANOREXon 08-05-2024 XR PANOREX Interpreted By: Aydin Grigsby, STUDY: XR PANOREX; ; 08/05/2024 9:53 pm INDICATION: Signs/Symptoms:Post- op evaluation. COMPARISON: None. ACCESSION NUMBER(S): [id number] ORDERING CLINICIAN: JIMMY KULKARNI FINDINGS: Orthopantomogram, single view Postsurgical change in the right aspect of the mandible. The hardware is intact. Several teeth are missing. No periapical abscess seen. IMPRESSION: Postsurgical changes in the right aspect of the mandible with intact hardware. MACRO: None Signed by: Aydin Grigsby 08/06/2024 8:33 AM Dictation workstation: [id number] [facility] XR tomography Mandible Panor amicon 08-05-2024 Radiology Study observation (narrative) [facility] Work Phone: Basic metabolic 2000 panelon 08-03-2024 Anion gap [Moles/Vol] 13 mmol/L Normal 10-20 [facility] Comment on above: Performed By: #### 2 4321-2 #### ELIZABETH RIOS L ([id number]) [facility] ([facility]) [address] [place] [address] Calcium [Mass/Vol] 9.5 mg/dL Normal 8.6-10.6 [facility] Comment on above: Performed By: #### 2 4321-2 #### ELIZABETH SCHMOTZER L ([id number]) [facility] ([facility]) [address] [place] [address]167 Chloride [Moles/Vol] 107 mmol/L Normal 98-[address] [facility] Comment on above: Performed By: #### 2 4321-2 #### ELIZABETH SCHMOTZER L ([id number]) [facility] ([facility]) [address] [place] [address] 86664 CO2 [Moles/Vol] 22 mmol/L Normal 21-32 [facility] Comment on above: Performed By: #### 2 4321-2 #### ELIZABETH SCHMOTZER L ([id number]) [facility] ([facility]) [address] [place] [address] 65660 Creatinine [Mass/Vol] 1.09 mg/dL Normal 0.50-1.30 [facility] Comment on above: Performed By: #### 2 4321-2 #### ELIZABETH PASTRANAMOTZER L ([id number]) [facility] ([facility]) [address] [place] [address] 89993 Glomerular filtration rate/1.73 sq M.predicted 69 mL/min/1.73m*2 Normal >60 [facility] Comment on above: Result Comment: Calc ulations of estimated GFR are performed using the 2020 CKD-EPI Study Refit equation without the race variable for the IDMS-Traceable creatinine methods. https://jasn.asnjournals.org/content//ASN.920 3860235 Performed By: #### 2 4321-2 #### ELIZABETH Yadav ([id number]) [facility] ([facility]) [address] [place] [address]274 Glucose [Mass/Vol] 123 mg/dL High 74-99 [facility] Comment on above: Performed By: #### 2 4321-2 #### ELIZABETH RIOS L ([id number]) [facility] ([facility]) [address] [place] [address] 23866 Potassium [Moles/Vol] 3.8 mmol/L Normal 3.5-5.3 [facility] Comment on above: Performed By: #### 2 4321-2 #### ELIZABETH RIOS L ([id number]) [facility] ([facility]) [address] [place] [address] 18782 Sodium [Moles/Vol] 138 mmol/L Normal 136-145 [facility] Comment on above: Performed By: #### 2 4321-2 #### ELIZABETH PASTRANAMOTZBRITNEY L ([id number]) [facility] ([facility]) [address] [place] [address] 83705 Urea nitrogen [Mass/Vol] 20 mg/dL Normal 6-23 [facility] Comment on above: Performed By: #### 2 4321-2 #### ELIZABETH PASTRANAMOTZBRITNEY L ([id number]) [facility] ([facility]) [address] [place] [address] 78244 CBC panel Auto (Bld)on 08-03 Erythrocyte distribution width (RBC) [Ratio] 13.3 % Normal 11.5-14.5 [facility] Comment on above: Performed By: #### 5 8410-2 #### ELIZABETH Yadav ([id number]) [facility] ([facility]) [address] [place] [address] 96999 Hematocrit (Bld) [Volume fraction] 42.5 % Normal 41.0-52.0 [facility] Comment on above: Performed By: #### 5 8410-2 #### ELIZABETH Yadav ([id number]) [facility] ([facility]) [address] [place] [address] 60398 Hemoglobin (Bld) [Mass/Vol] 14.1 g/dL Normal 13.5-17.5 [facility] Comment on above: Performed By: #### 5 8410-2 #### ELIZABETH Yadav ([id number]) [facility] ([facility]) [address] [place] [address] 11312 MCH (RBC) [Entitic mass] 32.1 pg Normal 26.0-34.0 [facility] Comment on above: Performed By: #### 5 8410-2 #### ELIZABETH Yadav ([id number]) [facility] ([facility]) [address] [place] [address] 01989 MCHC (RBC) [Mass/Vol] 33.2 g/dL Normal 32.0-36.0 [facility] Comment on above: Performed By: #### 5 8410-2 #### ELIZABETH Yadav ([id number]) [facility] ([facility]) [address] [place] [address] 37486 MCV (RBC) [Entitic vol] 97 fL Normal 80-100 [facility] Comment on above: Performed By: #### 5 8410-2 #### ELIZABETH Yadav ([id number]) [facility] ([facility]) [address] [place] [address] 15514 Nucleated RBC/100 WBC (Bld) [Ratio] 0.0 /100 WBCs Normal 0.0-0.0 [facility] Comment on above: Performed By: #### 5 8410-2 #### ELIZABETH Yadav ([id number]) [facility] ([facility]) [address] [place] [address] Platelets (Bld) [#/Vol] 151 x10*3/uL Normal 150-450 [facility] Comment on above: Performed By: #### 5 8410-2 #### ELIZABETH RIOS L ([id number]) [facility] ([facility]) [address] [place] [address] RBC (Bld) [#/Vol] 4.39 x10*6/uL Low 4.50-5.[address] [facility] Comment on above: Performed By: #### 5 8410-2 #### ELIZABETH RIOS L ([id number]) [facility] ([facility]) [address] [place] [address] WBC (Bld) [#/Vol] 8.0 x10*3/uL Normal 4.4-11.3 [facility] Comment on above: Performed By: #### 5 8410-2 #### ELIZABETH Yadav ([id number]) [facility] ([facility]) [address] [place] [address] CT FACIAL BONES WO IV CONTRA Jenaro 08-03-2024 CT FACIAL BONES WO IV CONTRAST Interpreted By: Erick Gates and Booth Cameron STUDY: CT FACIAL BONES WO IV CONTRAST 08/03/2024 10:51 am INDICATION: Signs/Symptoms:Pre-O perative evaluation for mandible fracture ,S02.601A Fracture of unspecified part of body of right mandible, initial encounter for closed fracture (Multi) COMPARISON: None. ACCESSION NUMBER(S): [id number] ORDERING CLINICIAN: JIMMY KULKARNI TECHNIQUE: Thin cut [...] as stated. This study was interpreted at [place], [place]. MACRO: None Signed by: Erick Gates 08/04/2024 7:17 AM Dictation workstation: [id number] Normal [facility] ECG 12-LEADon 08-03-2024 ECG 12-LEAD Ventricular Rate 89 Atrial Rate 89 P-R Interval 166 QRS Duration 84 Q-T Interval 348 QTC Calculation(Bazett) 423 P [place] 35 R [place] -12 T [place] 28 QRS Count 15 Q Onset 213 P Onset 130 P Offset 188 T Offset 387 QTC Fredericia 396 Diagnosis Normal sinus rhythm Possible Anterior infarct , age undetermined Abnormal ECG No previous ECGs available Confirmed by Desmond Mccann ([id number]) on 08/03/2024 11:33:47 PM Normal [facility] PT and aPTT panel Coag (PPP) on 08-03-2024 aPTT Coag (PPP) [Time] 24 s Low 26-36 [facility] Comment on above: Order Comment: The A PTT is no longer used for monitoring Unfractionated Heparin Therapy. For monitoring Heparin Therapy, use the Heparin Assay. Performed By: #### 3 4529-8 #### ELIZABETH Yadav ([id number]) [facility] ([facility]) [address] [place] [address] INR Coag (PPP) [Relative time] 1.1 Normal 0.9-1.1 [facility] Comment on above: Order Comment: The A PTT is no longer used for monitoring Unfractionated Heparin Therapy. For monitoring Heparin Therapy, use the Heparin Assay. Performed By: #### 3 4529-8 #### ELIZABETH Yadav ([id number]) [facility] ([facility]) [address] [place] [address] 29504 PT Coag (PPP) [Time] 12.3 s Normal 9.8-12.[address] [facility] Comment on above: Order Comment: The A PTT is no longer used for monitoring Unfractionated Heparin Therapy. For monitoring Heparin Therapy, use the Heparin Assay. Performed By: #### 3 4529-8 #### ELIZABETH Yadav ([id number]) [facility] ([facility]) [address] [place] [address] CERVICAL SPINE WO IV CONT [facility] 06-14-2024 CT CERVICAL SPINE WO IV CONTRAST [facility] [place] [facility] 1945 [id number] Exam Date/Time: 06/14/2024 10:50 Procedure: CT CERVICAL [...] reports jaw, mouth, and neck pain Normal [facility] CT Cervical spine WO contras ton [...] the paranasal sinuses shows no air-fluid levels. [facility] Carlos Franco MD - 06/14/2024 Patient [...] MD Electronically Signed Date/Time: 06/14/2024 11:20 AM [facility] Radiology Study observation (narrative) [facility] CT HEAD WO IV CONTRASTon CT HEAD WO IV CONTRAST Patient Name: SEE PARIS [facility] 1945 [id number] Exam Date/Time: 06/14/2024 10:50 Procedure: CT HEAD [...] reports jaw, mouth, and neck pain Normal [facility] CT Head WO contraston 2024 Patient Name: SEE PARIS [facility] 1945 [id number] Exam Date/Time: 06/14/2024 10:50 Procedure: CT HEAD [...] the paranasal sinuses shows no air-fluid levels. [facility] Carlos Franco MD - [...] Electronically Signed Date/Time: 06/14/2024 11:20 AM EST [facility] Radiology Study observation (narrative) Poppy He alth CT MAXILLOFACIAL WO IV CONTR Suzette 06-14-2024 [...] Electronically Signed Date/Time: 06/14/2024 11:24 AM EST c/o a fall around 0930 this am. Patient was walking out his back door and slipped on the ice, landing on his face. Patient takes Xarelto. Patient reports jaw, mouth, and neck pain Normal [facility] CT Maxillofacial region WO a nd W contrast Joan 06-14-2024 Fracture left maxilla. Report Dictated on Electronically Signed By: Carlos Franco MD Electronically Signed Date/Time: 06/14/2024 11:24 AM [facility] [employer] Patient Name: SEE PARIS [facility] 1945 [id number] Exam Date/Time: 06/14/2024 10:50 Procedure: CT MAXILLOFACIAL [...] are clear. No mastoiditis. No mandible dislocation. [facility] Carlos Franco MD - 06/14/2024 Patient Name: SEE PARIS [facility] 1945 [id number] Exam Date/Time: 06/14/2024 10:50 Procedure: CT MAXILLOFACIAL [...] Electronically Signed Date/Time: 06/14/2024 11:24 AM EST [facility] Radiology Study observation (narrative) [facility] ED Nursing Noteon 06-14-2024 ED Nursing Note Patient to room 3 with c/o a fall around 0930 this am. Patient was walking out his back door and slipped on the ice, landing on his face. Patient takes Xarelto. Patient reports jaw, mouth, and neck pain. V/S obtained, call light within reach. [facility] ED Provider Noteon ED Provider Note EMERGENCY [...] base unr (more content not included)... Normal [facility] No Panel Informationon 06-14 No acute [...] MD Electronically Signed Date/Time: 06/14/2024 11:20 AM [facility] No Panel InformationOrdered By: Carlos Franco on 06-14-2024 [facility]-11-[facility]24 CNOV Office Visit (UROLAE) SEE PARIS ([id number]) 1945 M Date Time Provider Department 03/11/24 1:30 PM MARY GONZALEZ During your visit today, we recorded the following information about you: Pulse Weight Height 86/minute 88.5 kg 1.778 m Mary Gonzalez MD 09/14/2024 1:01 PM Addendum ESTABLISHED PATIENT OFFICE VISIT HISTORY OF PRESENT ILLNESS No chief complaint on file. 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 Normal [facility] Absolute lymphocyte countOrd ered By: Yair Pace on 12-15-2022 Lymphocytes Auto (Unsp spec) [#/Vol] 0.96 10*3/uL 0.83-4.51 [facility] Basophil percentageOrdered B y: Yair Pace on 12-15-2022 Basophils/100 WBC (Bld) 0.8 % 0-1 [facility] Chloride [Moles/Vol] 111 mmol/L 98-107 [facility] Eosinophils/100 WBC (Bld) 6.6 % 0-5 [facility] Glucose [Mass/Vol] 103 mg/dL 74-106 [facility] Comment on above: Fasting Glucose resu lt from 100 to 125 mg/dL suggests IMPAIRED HOMEOSTASIS per A.D.A. criteria. Neutrophils (Bld) [#/Vol] 4.5 10*3/uL 2.0-7.7 [facility] Neutrophils/100 WBC (Bld) 68.3 % 47-70 [facility] Potassium [Moles/Vol] 3.8 mmol/L 3.5-5.1 [facility] Sodium [Moles/Vol] 141 mmol/L 136-145 [facility] WBC (Bld) [#/Vol] 6.6 10*3/uL 4.4-11.0 [facility] Blood erythrocytes count (nu mber/volume)Ordered By: Yair Pace on 12-15-2022 RBC (Bld) [#/Vol] 4.40 10*6/uL 4.6-6.2 [facility] Blood hemoglobin measurement (mass/volume)Ordered By: Yair Pace on 12-15-2022 Hemoglobin (Bld) [Mass/Vol] 13.6 g/dL 13.0-16.5 [facility] Blood lymphocytes/100 leukoc ytesOrdered By: Yair Pace on 12-15-2022 Lymphocytes/100 WBC (Bld) 14.5 % 19-41 [facility] Blood monocytes/100 leukocyt esOrdered By: Yair Pace on 12-15-2022 Monocytes/100 WBC (Bld) 9.2 % 0-10 [facility] Blood platelet mean volumeOr dered By: Yair Pace on 12-15-2022 Platelet mean volume (Bld) [Entitic vol] 9.2 fL 6.2-12.0 [facility] Determination of erythrocyte mean corpuscular volume (MCV)Ordered By: Yair Pace on 12-15-2022 MCV (RBC) [Entitic vol] 94.5 fL 80-94 [facility] Hematocrit Auto (Bld) [Volum e fraction]Ordered By: Yair Pace on 12-15-2022 Hematocrit (Bld) [Volume fraction] 41.6 % 40-54 [facility] Laboratory - Chemistry and C hemistry - challengeOrdered By: Yair Pace on 12-15-2022 CK [Catalytic activity/Vol] 70 U/L 39-308 [facility] CO2 [Moles/Vol] 24.0 mmol/L 21.0-32.0 [facility] Magnesium [Mass/Vol] 2.2 mg/dL 1.6-2.6 [facility] Urea nitrogen/Creatinine [Mass ratio] 17.5 mg/mg 10-20 [facility] Laboratory - Hematology and Cell countsOrdered By: Yair Pace on 12-15-2022 Erythrocyte distribution width (RBC) [Entitic vol] 44.6 fL 35.1-43.9 [facility] Erythrocyte distribution width (RBC) [Ratio] 13.0 % 11.6-14.6 [facility] Immature granulocytes/100 WBC (Bld) 0.600 % 0.0-0.9 [facility] Comment on above: IG% - Immature Granu locytes (promyelocytes, myelocytes and metamyelocytes) > 1% indicates that a LEFT SHIFT is Present. MCH (RBC) [Entitic mass] 30.9 pg 27.0-32.0 [facility] Nucleated RBC/100 WBC (Bld) [Ratio] 0 % 0-5 [facility] MCHC Auto (RBC) [Mass/Vol]Or dered By: Yair Pace on 12-15-2022 MCHC (RBC) [Mass/Vol] 32.7 g/dL 32-36 [facility] No Panel InformationOrdered By: Yair Pace on 12-15-2022 Estimated Creatinine Clearance Calc 50.69 ml/min [facility] Estimated GFR (MDRD) Amer 71 mL/min >60 [facility] Comment on above: GFR Calc Estimated GFR (MDRD) Non-Af Amer 59 mL/min >60 [facility] Comment on above: Non- GFR Calc Platelets bldOrdered By: Uma Pace on 12-15-2022 Platelets (Bld) [#/Vol] 138 10*3/uL 150-450 [facility] Serum or plasma calcium melissa urement (mass/volume)Ordered By: Yair Pace on 12-15-2022 Calcium [Mass/Vol] 9.0 mg/dL 8.5-10.1 [facility] Serum or plasma creatinine m easurement (mass/volume)Ordered By: Yair Pace on 12-15-2022 Creatinine [Mass/Vol] 1.26 mg/dL 0.70-1.30 [facility] Comment on above: The validity of the calculated GFR & GFRAA in patients over 70 years has not been determined. Clinical correlation is essential. Serum or plasma urea nitroge n measurement (mass/volume)Ordered By: Yair Pace on 12-15-2022 Urea nitrogen [Mass/Vol] 22 mg/dL 7-18 [facility] Thin prep Papanicolaou smear with manual screeningOrdered By: Yair Pace on 12-15-2022 Thin prep Papanicolaou smear with manual screening 6 5-15 [facility] Absolute lymphocyte countOrd ered By: Dr. Frost on 09-14-2022 Lymphocytes Auto (Unsp spec) [#/Vol] 1.30 10*3/uL 0.83-4.51 [facility] Basophil percentageOrdered B y: Dr. Frost on 09-14-2022 Basophils/100 WBC (Bld) 0.5 % 0-1 [facility] Chloride [Moles/Vol] 113 mmol/L 98-107 [facility] Eosinophils/100 WBC (Bld) 5.8 % 0-5 [facility] Glucose [Mass/Vol] 100 mg/dL 74-106 [facility] Comment on above: Fasting Glucose resu lt from 100 to 125 mg/dL suggests IMPAIRED HOMEOSTASIS per A.D.A. criteria. Neutrophils (Bld) [#/Vol] 4.9 10*3/uL 2.0-7.7 [facility] Neutrophils/100 WBC (Bld) 66.4 % 47-70 [facility] Potassium [Moles/Vol] 3.7 mmol/L 3.5-5.1 [facility] Sodium [Moles/Vol] 139 mmol/L 136-145 [facility] WBC (Bld) [#/Vol] 7.4 10*3/uL 4.4-11.0 [facility] Blood erythrocytes count (nu mber/volume)Ordered By: Dr. Frost on 09-14-2022 RBC (Bld) [#/Vol] 3.32 10*6/uL 4.6-6.2 [facility] Blood hemoglobin measurement (mass/volume)Ordered By: Dr. Frost on 09-14-2022 Hemoglobin (Bld) [Mass/Vol] 10.4 g/dL 13.0-16.5 [facility] Blood lymphocytes/100 leukoc ytesOrdered By: Dr. Frost on 09-14-2022 Lymphocytes/100 WBC (Bld) 17.5 % 19-41 [facility] Blood monocytes/100 leukocyt esOrdered By: Dr. Frost on 09-14-2022 Monocytes/100 WBC (Bld) 8.5 % 0-10 [facility] Blood platelet mean volumeOr dered By: Dr. Frost on 09-14-2022 Platelet mean volume (Bld) [Entitic vol] 8.5 fL 6.2-12.0 [facility] Determination of erythrocyte mean corpuscular volume (MCV)Ordered By: Dr. Frost on 09-14-2022 MCV (RBC) [Entitic vol] 98.2 fL 80-94 [facility] Hematocrit Auto (Bld) [Volum e fraction]Ordered By: Dr. Frost on 09-14-2022 Hematocrit (Bld) [Volume fraction] 32.6 % 40-54 [facility] Laboratory - Chemistry and C hemistry - challengeOrdered By: Dr. Frost on 09-14-2022 CO2 [Moles/Vol] 23.0 mmol/L 21.0-32.0 [facility] Urea nitrogen/Creatinine [Mass ratio] 20.0 mg/mg 10-20 [facility] Laboratory - Hematology and Cell countsOrdered By: Dr. Frost on 09-14-2022 Erythrocyte distribution width (RBC) [Entitic vol] 46.5 fL 35.1-43.9 [facility] Erythrocyte distribution width (RBC) [Ratio] 13.0 % 11.6-14.6 [facility] Immature granulocytes/100 WBC (Bld) 1.300 % 0.0-0.9 [facility] Comment on above: IG% - Immature Granu locytes (promyelocytes, myelocytes and metamyelocytes) > 1% indicates that a LEFT SHIFT is Present. MCH (RBC) [Entitic mass] 31.3 pg 27.0-32.0 [facility] Nucleated RBC/100 WBC (Bld) [Ratio] 0 % 0-5 [facility] MCHC Auto (RBC) [Mass/Vol]Or dered By: Dr. Frost on 09-14-2022 MCHC (RBC) [Mass/Vol] 31.9 g/dL 32-36 [facility] No Panel InformationOrdered By: Dr. Frost on 09-14-2022 Estimated Creatinine Clearance Calc 63.88 ml/min [facility] Estimated GFR (MDRD) Amer 93 mL/min >60 [facility] Comment on above: GFR Calc Estimated GFR (MDRD) Non-Af Amer 77 mL/min >60 [facility] Comment on above: Non- GFR Calc Platelets bldOrdered By: Dr. Frost on 09-14-2022 Platelets (Bld) [#/Vol] 222 10*3/uL 150-450 [facility] Serum or plasma calcium melissa urement (mass/volume)Ordered By: Dr. Frost on 09-14-2022 Calcium [Mass/Vol] 8.4 mg/dL 8.5-10.1 [facility] Serum or plasma creatinine m easurement (mass/volume)Ordered By: Dr. Frost on 09-14-2022 Creatinine [Mass/Vol] 1.00 mg/dL 0.70-1.30 [facility] Comment on above: The validity of the calculated GFR & GFRAA in patients over 70 years has not been determined. Clinical correlation is essential. Serum or plasma urea nitroge n measurement (mass/volume)Ordered By: Dr. Frost on 09-14-2022 Urea nitrogen [Mass/Vol] 20 mg/dL 7-18 [facility] Thin prep Papanicolaou smear with manual screeningOrdered By: Dr. Frost on 09-14-2022 Thin prep Papanicolaou smear with manual screening 3 5-15 [facility] COVID-19 virus antigen assay Ordered By: Dr. Frost on 09-10-2022 SARS-CoV-2 (COVID-19) Ag IA.rapid Ql (Resp) [facility] Basophil percentageOrdered B y: Dr. Magaña on 09-06-2022 WBC (Bld) [#/Vol] 9.8 10*3/uL 4.4-11.0 [facility] Blood erythrocytes count (nu mber/volume)Ordered By: Dr. Magaña on 09-06-2022 RBC (Bld) [#/Vol] 3.38 10*6/uL 4.6-6.2 [facility] Blood hemoglobin measurement (mass/volume)Ordered By: Dr. Magaña on 09-06-2022 Hemoglobin (Bld) [Mass/Vol] 11.2 g/dL 13.0-16.5 [facility] Blood platelet mean volumeOr dered By: Dr. Magaña on 09-06-2022 Platelet mean volume (Bld) [Entitic vol] 8.9 fL 6.2-12.0 [facility] COVID-19 virus antigen assay Ordered By: Tony Magaña on 09-06-2022 SARS-CoV-2 (COVID-19) Ag IA.rapid Ql (Resp) [facility] COVID-19 virus antigen assay Ordered By: Dr. Magaña on 04-20-2023 SARS-CoV-2 (COVID-19) Ag IA.rapid Ql (Resp) [facility] Determination of erythrocyte mean corpuscular volume (MCV)Ordered By: Dr. Magaña on 09-06-2022 MCV (RBC) [Entitic vol] 99.1 fL 80-94 [facility] Hematocrit Auto (Bld) [Volum e fraction]Ordered By: Dr. Magaña on 09-06-2022 Hematocrit (Bld) [Volume fraction] 33.5 % 40-54 [facility] Laboratory - Hematology and Cell countsOrdered By: Dr. Magaña on 09-06-2022 Erythrocyte distribution width (RBC) [Entitic vol] 47.6 fL 35.1-43.9 [facility] Erythrocyte distribution width (RBC) [Ratio] 13.2 % 11.6-14.6 [facility] MCH (RBC) [Entitic mass] 33.1 pg 27.0-32.0 [facility] MCHC Auto (RBC) [Mass/Vol]Or dered By: Dr. Magaña on 09-06-2022 MCHC (RBC) [Mass/Vol] 33.4 g/dL 32-36 [facility] Platelets bldOrdered By: Dr. Magaña on 09-06-2022 Platelets (Bld) [#/Vol] 126 10*3/uL 150-450 [facility] Basophil percentageOrdered B y: Dr. Magaña on 09-05-2022 Chloride [Moles/Vol] 112 mmol/L 98-107 [facility] Glucose [Mass/Vol] 159 mg/dL 74-106 [facility] Comment on above: Fasting Glucose resu lt greater than or equal to 126 mg/dL suggests DIABETES MELLITUS per A.D.A. criteria. Potassium [Moles/Vol] 4.3 mmol/L 3.5-5.1 [facility] Sodium [Moles/Vol] 137 mmol/L 136-145 [facility] Laboratory - Chemistry and C hemistry - challengeOrdered By: Dr. Magaña on 09-05-2022 CO2 [Moles/Vol] 21.0 mmol/L 21.0-32.0 [facility] Urea nitrogen/Creatinine [Mass ratio] 14.4 mg/mg 10-20 [facility] No Panel InformationOrdered By: Dr. Magaña on 09-05-2022 Estimated Creatinine Clearance Calc 54.13 ml/min [facility] Estimated GFR (MDRD) Amer 77 mL/min >60 [facility] Comment on above: GFR Calc Estimated GFR (MDRD) Non-Af Amer 64 mL/min >60 [facility] Comment on above: Non- GFR Calc Serum or plasma calcium melissa urement (mass/volume)Ordered By: Dr. Magaña on 09-05-2022 Calcium [Mass/Vol] 8.6 mg/dL 8.5-10.1 [facility] Serum or plasma creatinine m easurement (mass/volume)Ordered By: Dr. Magaña on 09-05-2022 Creatinine [Mass/Vol] 1.18 mg/dL 0.70-1.30 [facility] Comment on above: The validity of the calculated GFR & GFRAA in patients over 70 years has not been determined. Clinical correlation is essential. Serum or plasma urea nitroge n measurement (mass/volume)Ordered By: Dr. Magaña on 09-05-2022 Urea nitrogen [Mass/Vol] 17 mg/dL 7-18 [facility] Thin prep Papanicolaou smear with manual screeningOrdered By: Dr. Magaña on 09-05-2022 Thin prep Papanicolaou smear with manual screening 4 5-15 [facility] Glucose Glucometer (BldC) [M ass/Vol]Ordered By: Dr. Magaña on 09-04-2022 Glucose [Mass/Vol] 151 mg/dL 74-106 [facility] Comment on above: MANAGEMENT OF PATIEN T CARE PER NURSING PROTOCOL Laboratory - CoagulationOrde red By: Dr. Magaña on 09-04-2022 INR Coag (Bld) [Relative time] 1.1 {INR} [facility] Comment on above: Critical Value > 4.0 Whole blood prothrombin time Ordered By: Dr. Magaña on 09-04-2022 PT Coag (Bld) [Time] 12.2 s 11.7-14.9 [facility] Absolute lymphocyte countOrd ered By: Dr. Magaña on 08-22-2022 Lymphocytes Auto (Unsp spec) [#/Vol] 1.19 10*3/uL 0.83-4.51 [facility] Basophil percentageOrdered B y: Dr. Magaña on 08-22-2022 Basophils/100 WBC (Bld) 0.6 % 0-1 [facility] Eosinophils/100 WBC (Bld) 5.2 % 0-5 [facility] Neutrophils (Bld) [#/Vol] 4.2 10*3/uL 2.0-7.7 [facility] Neutrophils/100 WBC (Bld) 68.2 % 47-70 [facility] Blood lymphocytes/100 leukoc ytesOrdered By: Dr. Magaña on 08-22-2022 Lymphocytes/100 WBC (Bld) 19.2 % 19-41 [facility] Blood monocytes/100 leukocyt esOrdered By: Dr. Magaña on 08-22-2022 Monocytes/100 WBC (Bld) 6.5 % 0-10 [facility] Laboratory - Chemistry and C hemistry - challengeOrdered By: Dr. Vasquez on 08-22-2022 Magnesium [Mass/Vol] 2.2 mg/dL 1.6-2.6 [facility] Laboratory - CoagulationOrde red By: Dr. Magaña on 08-22-2022 aPTT Coag (Bld) [Time] 41.4 s 24.1-36.2 [facility] PT Coag (PPP) [Time] 21.0 s 11.7-14.9 [facility] Laboratory - Hematology and Cell countsOrdered By: Dr. Magaña on 08-22-2022 Immature granulocytes/100 WBC (Bld) 0.300 % 0.0-0.9 [facility] Comment on above: IG% - Immature Granu locytes (promyelocytes, myelocytes and metamyelocytes) > 1% indicates that a LEFT SHIFT is Present. Nucleated RBC/100 WBC (Bld) [Ratio] 0 % 0-5 [facility] No Panel InformationOrdered By: Dr. Magaña on 08-22-2022 Fructosamine 217 umol/L 0-285 [facility] Comment on above: Published reference interval for apparently healthysubjects between age 20 and 60 is 205 - 285 umol/L and in apoorly controlled diabetic population is 228 - 563 umol/Lwith a mean of 396 umol/L.Performed at: - [address] [id number] Director: Pablito Holloway PhD, Phone: [phone] Whole blood hemoglobin A1c/t otal hemoglobin ratio (mass fraction)Ordered By: Dr. Magaña on 08-22-2022 HbA1c (Bld) [Mass fraction] 5.1 % 3.8-5.6 [facility] Comment on above: Normal < 5.7 % Predi abetic 5.7 - 6.4 % Diabetic >or= 6.5 % Please note range changes. VL Venous Duplex US Upper Ex t Righton 10-25-2021 VL Venous Duplex US Upper Ext Right Patient Name: SEE PARIS Ultrasound ACCESSION EXAM DATE/TIME PROCEDURE ORDERING PROVIDER [id number] 10/25/2021 11:33 EDT VL Venous Duplex US DO CHURCH JOSHUA D Upper Ext Right CPT code 26572 Reason For Exam (VL Venous Duplex US [...] 10/25/2021 12:46 Cardiovascular ACCESSION EXAM DATE/TIME PROCEDURE [id number] 10/25/2021 11:33 EDT VL Venous Duplex US Upper Ext Right CPT code 35542 Cardiovascular Reason For Exam (VL Venous Duplex [...] Transcribed Date and Time: 10/25/2021 12:46 Normal [facility] Basic Metabolic Panelon 05-1 Calcium [Mass/Vol] 9.3 mg/dL Normal 8.4-10.4 [facility] Comment on above: Performed By: #### B MP3, HEMDF ####[facility] [place] [address] Glucose [Mass/Vol] 94 mg/dL Normal 70-100 [facility] Comment on above: Performed By: #### B MP3, HEMDF ####[facility] [place] [address] Urea nitrogen [Mass/Vol] 18 mg/dL High 7-17 [facility] Comment on above: Performed By: #### B MP3, HEMDF ####[facility] [place] [address] Anion gap [Moles/Vol] 9 mmol/L Normal 3-13 [facility] Comment on above: Performed By: #### B MP3, HEMDF ####[place] [address] [place] [address] CO2 [Moles/Vol] 22 mmol/L Normal 22-30 [facility] Comment on above: Performed By: #### B MP3, HEMDF ####[facility] [place] [address] Creatinine [Mass/Vol] 1.03 mg/dL Normal 0.52-1.25 [facility] Comment on above: Performed By: #### B MP3, HEMDF ####[place] [address] [place] [address] GFR/1.73 sq M.predicted among blacks MDRD (S/P/Bld) [Vol rate/Area] 81.1 mL/min/{1.73_m2} Normal >60 [facility] Comment on above: Performed By: #### B MP3, HEMDF ####[address] [place] [address] GFR/1.73 sq M.predicted among non-blacks MDRD (S/P/Bld) [Vol rate/Area] 70.0 mL/min/{1.73_m2} Normal >60 [facility] Comment on above: Result Comment: KDIG O [...] secretion. Performed By: #### B MP3, HEMDF ####[facility] [place] [address] Potassium [Moles/Vol] 4.7 mmol/L Normal 3.5-5.1 [facility] Comment on above: Performed By: #### B MP3, HEMDF ####[facility] [place] [address] Sodium [Moles/Vol] 138 mmol/L Normal 135-145 [facility] Comment on above: Performed By: #### B MP3, HEMDF ####[facility] [place] [address] Chloride [Moles/Vol] 107 mmol/L Normal 98-107 [facility] Comment on above: Performed By: #### B MP3, HEMDF ####[facility] [place] [address] Anion gap [Moles/Vol] 9 mmol/L 3 - 13 mmol/L [facility] Calcium [Mass/Vol] 9.3 mg/dL 8.4 - 10. 4 mg/dL [facility] Chloride [Moles/Vol] 107 mmol/L 98 - 10 7 mmol/L [facility] CO2 [Moles/Vol] 22 mmol/L 22 - 30 mmol/L [facility] Creatinine [Mass/Vol] 1.03 mg/dL 0.52 - 1.25 mg/dL [facility] EGFR IF NonAfrican Bulgarian 70.0 mL/min >60 [facility] Comment on above: KDIGO guidelines pro vide [...] - 17 mg/dL [facility] Test Performed by [facility], [facility] [address] , [address] LAB [facility] CBC with Auto Differentialon 10-02-2021 [...] vol] 8.8 fL 7.4 - 12.4 fL [facility] Comment on above: MPV is a calculated measurement using platelet volume ratio. Platelets (Bld) [#/Vol] 171 10*3/uL 140 - 440 10*3/uL [facility] RBC (Bld) [#/Vol] 4.40 10*6/uL 4.40 - 5.9 0 10*6/uL [facility] WBC (Bld) [#/Vol] 10.0 10*3/uL 3.6 - 10.7 10*3/uL [facility] Test Performed by [facility], [address] , [address] LAB [facility] Hemogram w/ Autodiffon 10-02 Abs Baso Cnt 0.0 10*3/uL Normal 0.0-0.[address] [facility] Comment on above: Performed By: #### B MP3, HEMDF ####[facility] [place] [address] Abs Neutrophile Cnt 8.4 10*3/uL High 1.8-7.0 [facility] Comment on above: Performed By: #### B MP3, HEMDF ####[facility] [place] [address] Basophils/100 WBC (Bld) 0.5 % Normal 0.0-2.0 [facility] Comment on above: Performed By: #### B MP3, HEMDF ####[address] [place] [address] Eosinophils (Bld) [#/Vol] 0.2 10*3/uL Normal 0.0-0.5 [facility] Comment on above: Performed By: #### B MP3, HEMDF ####[facility] [place] [address] Eosinophils/100 WBC (Bld) 2.4 % Normal 1.0-6.0 [facility] Comment on above: Performed By: #### B MP3, HEMDF ####[facility] [place] [address] Erythrocyte distribution width (RBC) [Ratio] 12.7 % Normal 11.5-14.5 [facility] Comment on above: Performed By: #### B MP3, HEMDF ####[facility] [place] [address] Granulocytes/100 WBC (Bld) 83.9 % High 40.0-80.0 [facility] Comment on above: Performed By: #### B MP3, HEMDF ####[facility] [place] [address] Hematocrit (Bld) [Volume fraction] 40.6 % Normal 40.0-52.0 [facility] Comment on above: Performed By: #### B MP3, HEMDF ####[facility] [place] [address] Hemoglobin (Bld) [Mass/Vol] 14.2 g/dL Normal 13.0-18.0 [facility] Comment on above: Performed By: #### B MP3, HEMDF ####[facility] [place] [address] Lymphocytes (Bld) [#/Vol] 0.6 10*3/uL Low 1.0-4.3 [facility] Comment on above: Performed By: #### B MP3, HEMDF ####[facility] [place] [address] Lymphocytes/100 WBC (Bld) 6.5 % Low 20.0-40.0 [facility] Comment on above: Performed By: #### B MP3, HEMDF ####[facility] [place] [address] MCH (RBC) [Entitic mass] 32.3 pg Normal 26.0-34.0 [facility] Comment on above: Performed By: #### B MP3, HEMDF ####[facility] [place] [address] MCHC 35.0 % Normal 32.0-36.0 [facility] Comment on above: Performed By: #### B MP3, HEMDF ####[facility] [place] [address] MCV (RBC) [Entitic vol] 92.3 fL Normal 80.0-98.0 [facility] Comment on above: Performed By: #### B MP3, HEMDF ####[facility] [place] [address] Monocytes (Bld) [#/Vol] 0.6 10*3/uL Normal 0.0-0.8 [facility] Comment on above: Performed By: #### B MP3, HEMDF ####[facility] [place] [address] Monocytes/100 WBC (Bld) 6.2 % Normal 2.0-10.0 [facility] Comment on above: Performed By: #### B MP3, HEMDF ####[facility] [place] [address] Platelet mean volume (Bld) [Entitic vol] 8.8 fL Normal 7.4-12.4 [facility] Comment on above: Result Comment: MPV is a calculated measurement using platelet volume ratio. Performed By: #### B MP3, HEMDF ####[facility] [place] [address] Platelets (Bld) [#/Vol] 171 10*3/uL Normal 140-440 [facility] Comment on above: Performed By: #### B MP3, HEMDF ####[facility] [place] [address] RBC (Bld) [#/Vol] 4.40 10*6/uL Normal 4.40-5.90 [facility] Comment on above: Performed By: #### B MP3, HEMDF ####[facility] [place] [address] WBC (Bld) [#/Vol] 10.0 10*3/uL Normal 3.6-10.7 [facility] Comment on above: Performed By: #### B MP3, HEMDF ####[facility] [place] [address] VL VENOUS DUPLEX UPPER EXTRE MITY RIGHTon 10-02-2021 Patient Name: SEE PARIS Ultrasound ACCESSION EXAM DATE/TIME PROCEDURE ORDERING PROVIDER [id number] 10/02/2021 12:49 EDT VL Venous Duplex US MD JED, JEFF Upper Ext Right CPT code 32948 Reason For Exam (VL Venous Duplex US [...] 10/02/2021 1:14 Cardiovascular ACCESSION EXAM DATE/TIME PROCEDURE [id number] 10/02/2021 12:49 EDT VL Venous Duplex US Upper Ext Right CPT code 21392 Cardiovascular Reason For Exam (VL Venous Duplex [...] J Transcribed Date and Time: 10/02/2021 1:14 [facility] Gio Wiggins MD - 10/02/2021 Patient Name: SEE PARIS Ultrasound ACCESSION EXAM DATE/TIME PROCEDURE ORDERING PROVIDER [id number] 10/02/2021 12:49 EDT VL Venous Duplex US MD MONTES DE [place]CA [place] Upper Ext Right CPT code 36628 Reason For Exam (VL Venous Duplex US [...] 10/02/2021 1:14 Cardiovascular ACCESSION EXAM DATE/TIME PROCEDURE [id number] 10/02/2021 12:49 EDT VL Venous Duplex US Upper Ext Right CPT code 19667 Cardiovascular Reason For Exam (VL Venous Duplex [...] Ultrasound ACCESSION EXAM DATE/TIME PROCEDURE ORDERING PROVIDER [id number] 10/02/2021 12:49 EDT VL Venous Duplex US JED MD, JEFF Upper Ext Right CPT code 26542 Reason For Exam (VL Venous Duplex US [...] physician via perfect serve. Report Dictated on Final Dictating Physician: MD WIGGINS ANTHONY J Signed Date and Time: 10/02/2021 1:13 pm Signed by: MD WIGGINS ANTHONY J Transcribed Date and Time: 10/02/2021 1:14 Cardiovascular ACCESSION EXAM DATE/TIME PROCEDURE [id number] 10/02/2021 12:49 EDT VL Venous Duplex US Upper Ext Right CPT code 73260 Cardiovascular Reason For Exam (VL Venous Duplex [...] physician via perfect serve. Report Dictated on Final Dictating Physician: MD WIGGINS ANTHONY J Signed Date and Time: 10/02/2021 1:13 pm Signed by: MD WIGGINS ANTHONY J Transcribed Date and Time: 10/02/2021 1:14 Normal [facility] Basic Metabolic Panelon 05-0 Anion gap [Moles/Vol] 5 mmol/L Normal 3-13 [facility] Comment on above: Performed By: #### M G3, LFT3, TROPN, BMP3, LIPA4, HEMDF #### [facility] [address] [place] [address] Calcium [Mass/Vol] 9.6 mg/dL Normal 8.4-10.4 [facility] Comment on above: Performed By: #### M G3, LFT3, TROPN, BMP3, LIPA4, HEMDF #### [facility] [address] [place] [address] CO2 [Moles/Vol] 27 mmol/L Normal 22-30 [facility] Comment on above: Performed By: #### M G3, LFT3, TROPN, BMP3, LIPA4, HEMDF #### [facility] [address] [place] [address] Glucose [Mass/Vol] 103 mg/dL High 70-100 [facility] Comment on above: Performed By: #### M G3, LFT3, TROPN, BMP3, LIPA4, HEMDF #### [facility] [address] [place] [address] Urea nitrogen [Mass/Vol] 23 mg/dL High 7-17 [facility] Comment on above: Performed By: #### M G3, LFT3, TROPN, BMP3, LIPA4, HEMDF #### [facility] [address] [place] [address] Creatinine [Mass/Vol] 1.23 mg/dL Normal 0.52-1.25 [facility] Comment on above: Performed By: #### M G3, LFT3, TROPN, BMP3, LIPA4, HEMDF #### [facility] [address] [place] [address] GFR/1.73 sq M.predicted among blacks MDRD (S/P/Bld) [Vol rate/Area] 65.5 mL/min/{1.73_m2} Normal >60 [facility] Comment on above: Performed By: #### M G3, LFT3, TROPN, BMP3, LIPA4, HEMDF #### [facility] [address] [place] [address] GFR/1.73 sq M.predicted among non-blacks MDRD (S/P/Bld) [Vol rate/Area] 56.5 mL/min/{1.73_m2} Abnormal >60 [facility] Comment on above: Result Comment: KDIG O [...] G3, LFT3, TROPN, BMP3, LIPA4, HEMDF #### [facility] [address] [place] [address] Potassium [Moles/Vol] 4.0 mmol/L Normal 3.5-5.1 [facility] Comment on above: Performed By: #### M G3, LFT3, TROPN, BMP3, LIPA4, HEMDF #### [facility] [address] [place] [address] Sodium [Moles/Vol] 136 mmol/L Normal 135-145 [facility] Comment on above: Performed By: #### M G3, LFT3, TROPN, BMP3, LIPA4, HEMDF #### [facility] [address] [place] [address] Chloride [Moles/Vol] 105 mmol/L Normal 98-107 [facility] Comment on above: Performed By: #### M G3, LFT3, TROPN, BMP3, LIPA4, HEMDF #### [facility] [address] [place] [address] Anion gap [Moles/Vol] 5 mmol/L 3 - 13 mmol/L [facility] Work Phone: Calcium [Mass/Vol] 9.6 mg/dL 8.4 - 10. 4 mg/dL [employer] Work Phone: Chloride [Moles/Vol] 105 mmol/L 98 - 10 7 mmol/L [facility] Work Phone: CO2 [Moles/Vol] 27 mmol/L 22 - 30 mmol/L [facility] Work Phone: Creatinine [Mass/Vol] 1.23 mg/dL 0.52 - 1.25 mg/dL [employer] Work Phone: EGFR IF NonAfrican Bulgarian 56.5 mL/min Abnormal >60 [facility] Work Phone: [...] MDRD (S/P/Bld) [Vol rate/Area] 65.5 mL/min/{1.73_m2} >60 [facility] Work Phone: Glucose [Mass/Vol] 103 mg/dL High 70 - 100 mg/dL [facility] Work Phone: Interpretation and review of laboratory results Abnormal [facility] Work Phone: Potassium [Moles/Vol] 4.0 mmol/L 3.5 - 5.1 mmol/L [facility] Work Phone: Sodium [Moles/Vol] 136 mmol/L 135 - 145 mmol/L [facility] Work Phone: Urea nitrogen (BldV) [Mass/Vol] 23 mg/dL High 7 - 17 mg/dL [facility] Work Phone: CBC with Auto Differentialon 09-25-2021 Absolute Baso # 0.0 10*3/uL 0.0 - 0.2 10*3/uL [facility] Work Phone: Absolute Neut # 7.5 10*3/uL High 1.8 - 7.0 10*3/uL [facility] Work Phone: Basophils/100 WBC (Bld) 0.4 % 0.0 - 2.0 % [facility] Work Phone: Eosinophils (Bld) [#/Vol] 0.3 10*3/uL 0.0 - 0.5 10*3/uL [facility] Work Phone: Eosinophils/100 WBC (Bld) 2.6 % 1.0 - 6.0 % [facility] Work Phone: Granulocytes/100 WBC (Bld) 78.2 % 40.0 - 80.0 % [facility] Work Phone: Hematocrit (Bld) [Volume fraction] 44.5 % 40.0 - 52.0 % [employer] Work Phone: Hemoglobin.gastrointesti nal spec 1 Ql (Stl) 15.2 g/dL 13.0 - 18.0 g/dL [employer] Work Phone: Interpretation and review of laboratory results Abnormal [employer] Work Phone: Lymphocytes (Bld) [#/Vol] 0.9 10*3/uL Low 1.0 - 4.3 10*3/uL [facility] Work Phone: Lymphocytes/100 WBC (Bld) 9.7 % Low 20.0 - 40.0 % [facility] Work Phone: MCH (RBC) [Entitic mass] 31.6 pg 26. 0 - 34.0 pg [facility] Work Phone: MCHC (RBC) [Mass/Vol] 34.2 % 32.0 - 36.0 % [facility] Work Phone: MCV (RBC) [Entitic vol] 92.3 fL 80.0 - 98.0 fL [facility] Work Phone: Monocytes (Bld) [#/Vol] 0.9 10*3/uL High 0.0 - 0.8 10*3/uL [employer] Work Phone: Monocytes/100 WBC (Bld) 9.1 % 2.0 - 10.0 % [employer] Work Phone: Platelet distribution width (Bld) [Ratio] 13.5 % 11.5 - 14.5 % [employer] Work Phone: Platelet mean volume (Bld) [Entitic vol] 7.5 fL 7.4 - 12.4 fL [employer] Work Phone: Comment on above: MPV is a calculated measurement using platelet volume ratio. Platelets (Bld) [#/Vol] 129 10*3/uL Low 140 - 440 10*3/uL [employer] Work Phone: RBC (Bld) [#/Vol] 4.82 10*6/uL 4.40 - 5.9 0 10*6/uL [employer] Work Phone: WBC (Bld) [#/Vol] 9.6 10*3/uL 3.6 - 10.7 10*3/uL [employer] Work Phone: [facility], [address] [place] [id number] [place] [address] LAB [employer] Work Phone: CR Ribs w/ PA Chest Righton 09-25-2021 CR Ribs w/ PA Chest Right [facility]: [id number]iology ACCESSION EXAM DATE/TIME PROCEDURE ORDERING PROVIDER [id number] 09/25/2021 04:42 EDT CR Ribs w/ PA Chest [id number] ZAIDA RASCON Right CPT code 86755 Reason For Exam (CR Ribs w/ PA [...] Transcribed Date and Time: 09/25/2021 5:04 Normal [facility] CT Abdomen and Pelvis W cont rast Joan 09-25-2021 Patient Name: SEE PARIS Computed Tomography ACCESSION EXAM DATE/TIME PROCEDURE ORDERING PROVIDER [id number] 09/25/2021 10:[address] Abdomen/Pelvis w/ IV [id number] -KIBE, ZAIDA Contrast (IV Onl CPT code 61024 Q9967 Reason For Exam (CT Abdomen/Pelvis w/ [...] JOHN Transcribed Date and Time: 09/25/2021 10:16 [facility] Carlos Franco MD - 09/25/2021 Patient Name: SEE PARIS Computed Tomography ACCESSION EXAM DATE/TIME PROCEDURE ORDERING PROVIDER [id number] 09/25/2021 10:[address] Abdomen/Pelvis w/ IV [id number] -KIBE ZAIDA Contrast (IV Onl CPT code 86198 Q9967 Reason For Exam (CT Abdomen/Pelvis w/ [...] Radiology Study observation (narrative) [facility] Work Phone: CT Abdomen and Pelvis W cont rast IVOrdered By: Carlos Franco on 09-25-2021 [facility]: CT Abdomen/Pelvis w/ Contras ton 09-25-2021 CT Abdomen/Pelvis w/ Contrast Patient Name: SEE PARIS Computed Tomography ACCESSION EXAM DATE/TIME PROCEDURE ORDERING PROVIDER [id number] 09/25/2021 10:[address] Abdomen/Pelvis w/ IV [id number] -JAMAAL MONTEJOSCA Contrast (IV Onl CPT code 35389 Q9967 Reason For Exam (CT Abdomen/Pelvis w/ [...] Transcribed Date and Time: 09/25/2021 10:16 Normal [facility] Complete Urinalysison 2021 Appearance (U) Clear Normal Clear [facility] Comment on above: Result Comment: . Performed By: #### C UA2 #### [facility] [address] [place] [address] Bacteria LM.HPF (Urine sed) [#/Area] Negative Normal Negative [facility] Comment on above: Result Comment: . Performed By: #### C UA2 #### [facility] [address] [place] [address] Bilirubin,Urine Negative Normal Negative [facility] Comment on above: Result Comment: . Performed By: #### C UA2 #### [facility] [address] [place] [address] Color (U) Yellow Normal Lt. Yellow [facility] Comment on above: Result Comment: . Performed By: #### C UA2 #### [facility] [address] [place] [address] Glucose Ql (U) Normal Normal Normal (<70) [facility] Comment on above: Result Comment: . Performed By: #### C UA2 #### [facility] [address] [place] [address] Ketone,Urine Negative Normal Negative [facility] Comment on above: Result Comment: . Performed By: #### C UA2 #### [facility] [address] [place] [address] Leukocytes,Urine Negative Normal Negative [facility] Comment on above: Result Comment: . Performed By: #### C UA2 #### [facility] [address] [place] [address] Mucous Threads Few Normal Negative [facility] Comment on above: Result Comment: . Performed By: #### C UA2 #### [facility] [address] [place] [address] Nitrites,Urine Negative Normal Negative [facility] Comment on above: Result Comment: . Performed By: #### C UA2 #### [facility] [address] [place] [address] Occult Blood,Urine Negative Normal Negative [facility] Comment on above: Result Comment: . Performed By: #### C UA2 #### [facility] [address] [place] [address] pH,Urine 5.5 Normal 5.0-8.0 [facility] Comment on above: Result Comment: . Performed By: #### C UA2 #### [facility] [address] [place] [address] Protein (U) [Mass/Vol] 10 mg/dL Abnormal Negative [facility] Comment on above: Result Comment: . Performed By: #### C UA2 #### [facility] [address] [place] [address] RBC, Urine 0 - 2 Normal 0-2 [facility] Comment on above: Result Comment: . Performed By: #### C UA2 #### [facility] [address] [place] [address] Specific [place],Urine > 1.030 Abnormal 1.005 - 1.030 [facility] Comment on above: Result Comment: . Performed By: #### C UA2 #### [facility] [address] [place] [address] Squamous Epithelial Negative Normal 3-5 [facility] Comment on above: Result Comment: . Performed By: #### C UA2 #### [place] [address] [place] [address] Urobilinogen,Urine Normal Normal Normal (0-1) [facility] Comment on above: Result Comment: . Performed By: #### C UA2 #### [facility] [address] [place] [address] WBC, Urine 0 - 2 Normal 0-5 [facility] Comment on above: Result Comment: . Performed By: #### C UA2 #### [facility] [address] [place] [address] ED Provider Noteon ED Provider Note [facility] EMERGENCY DEPARTMENT ENCOUNTER Pt Name: See [...] and Family: Not on file ? Attends Caodaism Services: Not on file ? Active Member [...] for level 5) ED Triage Vitals [09/25/21 0351] BP Temp Temp Source Pulse Resp SpO2 Height Weight (!) 170/80 98.4 ?F (36.9 ?C) Oral 80 16 95 % 5' 10 (1.778 m) 210 lb (95.3 kg) (more content not included)... Normal [facility] ED Provider Note Emergency Department Encounter Location: [facility] Patient: See Paris : 1945 Date of evaluation: 09/25/2021 ED Provider: CHRISTIAN PAINTER MD 0700 See Paris was checked out to me [...] eGFR 65.5 >60 mL/min EGFR IF NonAfrican Bulgarian 56.5 (A) >60 mL/min Calcium 9.6 8.4 [...] 0.9 (L) 1.0 - 4.3 10*3/uL Absolute [place]edar # 0.9 (H) 0.0 - 0.8 10*3/uL [...] Radiology ACCESSION EXAM DATE/TIME PROCEDURE ORDERING PROVIDER [id number] 09/25/2021 04:42 EDT CR Ribs w/ PA Chest [id number] -KIBE, ZAIDA Right CPT code 14022 Reason For Exam (CR Ribs w/ PA [...] PRN Last JUL action: Given - by SAE MORE on 09/25/21 at 0654 KIBE, ZAIDA 09/25/21 0542 09/25/21 0541 ondansetron (ZOFRAN) injection 4 mg ONCE Last JUL action: Given - by VARGHESE BOYD on 09/25/21 at 0545 KIBE, ZAIDA 09/25/21 0422 09/25/21 0421 ketorolac (TORADOL) injection 15 mg ONCE Last MAR action: Given - by VARGHESE BOYD on 09/25/21 at 0545 ZAIDA MONTEJO Final Impression No diagnosis found. DISPOSITION (Please note that portions of this note may have been completed with a voice recognition program. Efforts were made to edit the dictations but occasionally words are mis-transcribed.) CHRISTIAN PAINTER MD US Acute Car (more content not included)... Normal [facility] EKG 12 Lead - Chest Painon 0 09-25-2021 [facility] Test Date: 2021-09-25 Pat Name: SEE PARIS Department: 01 Room: 11 Gender: M Credit Balance Specialist: RIGOBERTO : 1945 Requested By: ZAIDA MONTEJO Order Number: [id number] Reading MD: Zaida Montejo Measurements Intervals [place] Rate: 56 P: 22 PA: 172 QRS: -7 QRSD: 106 T: 13 QT: 420 QTc: 406 Interpretive Statements SINUS RHYTHM CONSIDER ANTEROSEPTAL INFARCT No previous ECG available for comparison Electronically Signed On 09-25-2021 6:04:14 EDT by Zaida MCWILLIAMS SB CARDIOLOGY Zaida Montejo MD - 09/25/2021 [facility] Test Date: 2021-09-25 Pat Name: SEE PARIS Department: 01 Room: 11 Gender: M Credit Balance Specialist: RIGOBERTO : 1945 Requested By: ZAIDA MONTEJO Order Number: [id number] Reading MD: Zaida Montejo Measurements Intervals [place] Rate: 56 P: 22 PA: 172 QRS: -7 QRSD: 106 T: 13 QT: 420 QTc: 406 Interpretive Statements SINUS RHYTHM CONSIDER ANTEROSEPTAL INFARCT No previous ECG available for comparison Electronically Signed On 09-25-2021 6:04:14 EDT by Zaida MCWILLIAMS Work Phone: [facility] Work Phone: Hemogram w/ [employer] 09-25 Abs Baso Cnt 0.0 10*3/uL Normal 0.0-0.2 [facility] [employer] Comment on above: Performed By: #### M G3, LFT3, TROPN, BMP3, LIPA4, HEMDF #### [facility] [address] [place] [address] Abs Neutrophile Cnt 7.5 10*3/uL High 1.8-7.0 [facility] Comment on above: Performed By: #### M G3, LFT3, TROPN, BMP3, LIPA4, HEMDF #### [facility] [address] [place] [address] Basophils/100 WBC (Bld) 0.4 % Normal 0.0-2.0 [facility] Comment on above: Performed By: #### M G3, LFT3, TROPN, BMP3, LIPA4, HEMDF #### [facility] [address] [place] [address] Eosinophils (Bld) [#/Vol] 0.3 10*3/uL Normal 0.0-0.5 [facility] Comment on above: Performed By: #### M G3, LFT3, TROPN, BMP3, LIPA4, HEMDF #### [facility] [address] [place] [address] Eosinophils/100 WBC (Bld) 2.6 % Normal 1.0-6.0 [facility] Comment on above: Performed By: #### M G3, LFT3, TROPN, BMP3, LIPA4, HEMDF #### [facility] [address] [place] [address] Erythrocyte distribution width (RBC) [Ratio] 13.5 % Normal 11.5-14.5 [facility] Comment on above: Performed By: #### M G3, LFT3, TROPN, BMP3, LIPA4, HEMDF #### [facility] [address] [place] [address] Granulocytes/100 WBC (Bld) 78.2 % Normal 40.0-80.0 [facility] Comment on above: Performed By: #### M G3, LFT3, TROPN, BMP3, LIPA4, HEMDF #### [facility] [address] [place] [address] Hematocrit (Bld) [Volume fraction] 44.5 % Normal 40.0-52.0 [facility] Comment on above: Performed By: #### M G3, LFT3, TROPN, BMP3, LIPA4, HEMDF #### [facility] [address] [place] [address] Hemoglobin (Bld) [Mass/Vol] 15.2 g/dL Normal 13.0-18.0 [facility] Comment on above: Performed By: #### M G3, LFT3, TROPN, BMP3, LIPA4, HEMDF #### [facility] [address] [place] [address] Lymphocytes (Bld) [#/Vol] 0.9 10*3/uL Low 1.0-4.3 [facility] Comment on above: Performed By: #### M G3, LFT3, TROPN, BMP3, LIPA4, HEMDF #### [facility] [address] [place] [address] Lymphocytes/100 WBC (Bld) 9.7 % Low 20.0-40.0 [facility] Comment on above: Performed By: #### M G3, LFT3, TROPN, BMP3, LIPA4, HEMDF #### [facility] [address] [place] [address] MCH (RBC) [Entitic mass] 31.6 pg Normal 26.0-34.0 [facility] Comment on above: Performed By: #### M G3, LFT3, TROPN, BMP3, LIPA4, HEMDF #### [facility] [address] [place] [address] MCHC 34.2 % Normal 32.0-36.0 [facility] Comment on above: Performed By: #### M G3, LFT3, TROPN, BMP3, LIPA4, HEMDF #### [facility] [address] [place] [address] MCV (RBC) [Entitic vol] 92.3 fL Normal 80.0-98.0 [facility] Comment on above: Performed By: #### M G3, LFT3, TROPN, BMP3, LIPA4, HEMDF #### [facility] [address] [place] [address] Monocytes (Bld) [#/Vol] 0.9 10*3/uL High 0.0-0.8 [facility] Comment on above: Performed By: #### M G3, LFT3, TROPN, BMP3, LIPA4, HEMDF #### [facility] [address] [place] [address] Monocytes/100 WBC (Bld) 9.1 % Normal 2.0-10.0 [facility] Comment on above: Performed By: #### M G3, LFT3, TROPN, BMP3, LIPA4, HEMDF #### [facility] [address] [place] [address] Platelet mean volume (Bld) [Entitic vol] 7.5 fL Normal 7.4-12.4 [facility] Comment on above: Result Comment: MPV is a calculated measurement using platelet volume ratio. Performed By: #### M G3, LFT3, TROPN, BMP3, LIPA4, HEMDF #### [facility] [address] [place] [address] Platelets (Bld) [#/Vol] 129 10*3/uL Low 140-440 [facility] Comment on above: Performed By: #### M G3, LFT3, TROPN, BMP3, LIPA4, HEMDF #### [facility] [address] [place] [address] RBC (Bld) [#/Vol] 4.82 10*6/uL Normal 4.40-5.90 [facility] Comment on above: Performed By: #### M G3, LFT3, TROPN, BMP3, LIPA4, HEMDF #### [facility] [address] [place] [address] WBC (Bld) [#/Vol] 9.6 10*3/uL Normal 3.6-10.7 [facility] Comment on above: Performed By: #### M G3, LFT3, TROPN, BMP3, LIPA4, HEMDF #### [facility] [address] [place] [address] Hepatic Functionon 2 ALP [Catalytic activity/Vol] 51 U/L Normal 38-126 [facility] Comment on above: Performed By: #### M G3, LFT3, TROPN, BMP3, LIPA4, HEMDF #### [facility] [address] [place] [address] ALT [Catalytic activity/Vol] 21 U/L Normal 0-49 [facility] Comment on above: Result Comment: The ALT test is performed by an updated assay method. Please note that the reference intervals have been changed and are now sex specific. Performed By: #### M G3, LFT3, TROPN, BMP3, LIPA4, HEMDF #### [facility] [address] [place] [address] AST [Catalytic activity/Vol] 30 U/L Normal 15-46 [facility] Comment on above: Performed By: #### M G3, LFT3, TROPN, BMP3, LIPA4, HEMDF #### [facility] [address] [place] [address] Bilirubin [Mass/Vol] 1.0 mg/dL Normal 0.2-1.3 [facility] Comment on above: Performed By: #### M G3, LFT3, TROPN, BMP3, LIPA4, HEMDF #### [facility] [address] [place] [address] Bilirubin.indirect [Mass/Vol] 0.0 mg/dL Normal 0.0-0.3 [facility] Comment on above: Performed By: #### M G3, LFT3, TROPN, BMP3, LIPA4, HEMDF #### [facility] [address] [place] [address] Protein [Mass/Vol] 7.5 g/dL Normal 6.3-8.2 [facility] Comment on above: Performed By: #### M G3, LFT3, TROPN, BMP3, LIPA4, HEMDF #### [facility] [address] [place] [address] Albumin [Mass/Vol] 4.5 g/dL Normal 3.5-5.0 [facility] Comment on above: Performed By: #### M G3, LFT3, TROPN, BMP3, LIPA4, HEMDF #### [facility] [address] [place] [address] Hepatic Function Panelon Albumin [Mass/Vol] 4.5 g/dL 3.5 - 5.0 g/dL [facility] Work Phone: ALP (Bld) [Catalytic activity/Vol] 51 U/L 38 - 126 U/L [facility] Work Phone: ALT [Catalytic activity/Vol] 21 U/L 0 - 49 U/L [facility] Work Phone: Comment on above: The ALT test is perf ormed by an updated assay method. Please note that the reference intervals have been changed and are now sex specific. AST [Catalytic activity/Vol] 30 U/L 15 - 46 U/L [facility] Work Phone: Bilirubin [Mass/Vol] 1.0 mg/dL 0.2 - 1 .3 mg/dL [facility] Work Phone: Bilirubin.indirect [Mass/Vol] 0.0 mg/dL 0.0 - 0.3 mg/dL [facility] Work Phone: Free PSA/Total PSA [Mass fraction] 7.5 g/dL 6.3 - 8.2 g/dL [facility] Work Phone: Lipaseon 09-25-2021 Lipase [Catalytic activity/Vol] 50 U/L Normal 23-300 [facility] [employer] [facility] Comment on above: Performed By: #### M G3, LFT3, TROPN, BMP3, LIPA4, HEMDF ####[employer] [address] [place] [address] Lipase [Catalytic activity/Vol] 50 U/L 23 - 300 U/L [facility] Work Phone: Test [facility]formed by [facility], [address] [place], [place] [address] [facility] Work Phone: Magnesiumon 09-25-2021 Magnesium [Mass/Vol] 2.1 mg/dL Normal 1.6-2.3 [facility] Work Phone: Comment on above: Performed By: #### M G3, LFT3, TROPN, BMP3, LIPA4, HEMDF #### [facility] [address] [place] [address] No Panel Informationon 05-09 -2022 Test Performed by [facility], [address] [place], [place] [address] [facility] [employer] Work Phone: Troponin Ion 09-25-2021 Troponin I.cardiac [Mass/Vol] ng/mL Normal 0.000-0.034 [facility] [employer] Comment on above: Result Comment: . Performed By: #### M G3, LFT3, TROPN, BMP3, LIPA4, HEMDF ####[employer] [id number] [place] [address] Troponin x1on 09-25-2021 Troponin I.cardiac [Mass/Vol] ng/mL 0.000 - 0.034 ng/mL [employer] Work Phone: Comment on above: . Test Performed by [employer], [address] [place], [place] [address] [facility] [employer] Work Phone: Urinalysison 09-25-2021 Appearance (U) Clear Clear NA [employer] Work Phone: Comment on above: . Bacteria, UA Negative Negative /[HPF] [employer] Work Phone: Comment on above: . Bilirubin Urine Negative Negative mg/dL [facility] Work Phone: Comment on above: . Color (U) Yellow Lt. Yellow NA [employer] Work Phone: Comment on above: . Glucose, Ur Normal Normal (<70) mg/dL [facility] Work Phone: Comment on above: . Interpretation and review of laboratory results Abnormal [facility] Work Phone: Ketones Ql (U) Negative Negative mg/dL [facility] Work Phone: Comment on above: . LEUKOCYTES, UA Negative Negative Pedro/uL [facility] Work Phone: Comment on above: . Mucous Threads Few Negative /[LPF] [employer] Work Phone: Comment on above: . Nitrite, Urine Negative Negative NA [employer] Work Phone: Comment on above: . Occult Blood,Urine Negative Negative mg/dL [facility] Work Phone: Comment on above: . pH (U) 5.5 [pH] [facility] Work Phone: Comment on above: . Protein (U) [Mass/Vol] 10 mg/dL Abnormal Negative [employer] [facility] Work Phone: Comment on above: . RBC, UA 0-2 0 - 2 /[HPF] [facility] Work Phone: Comment on above: . Specific [place], Urine >1.030 Abnormal S [facility] Work Phone: Comment on above: . Squam Epithel, UA Negative 3 - 5 /[HPF] [facility] Work Phone: Comment on above: . Urobilinogen, Urine Normal Normal ( 0-1) mg/dL [facility] Work Phone: Comment on above: . WBC, UA 0-2 0 - 5 /[HPF] [facility] Work Phone: Comment on above: . Test Performed by [facility], [address] [facility] [address], [place] [id number] [place] [address] LAB [facility] Work Phone: XR RIBS RIGHT INCLUDE CHEST (MIN 3 VIEWS)on 09-25-2021 [facility]: [id number] Radiology ACCESSION EXAM DATE/TIME PROCEDURE ORDERING PROVIDER [id number] 09/25/2021 04:42 EDT CR Ribs w/ PA Chest [id number] -ZAIDA MONTEJO Right CPT code 49612 Reason For Exam (CR Ribs w/ PA [...] ALFRED Transcribed Date and Time: 09/25/2021 5:04 ROBIN MCWILLIAMS RAD Lawrence Pena DO - 09/25/2021 Patient Name: SEE PARIS Diagnostic Radiology ACCESSION EXAM DATE/TIME PROCEDURE ORDERING PROVIDER [id number] 09/25/2021 04:42 EDT CR Ribs w/ PA Chest [id number] -KIBE, ZAIDA Right CPT code 06797 Reason For Exam (CR Ribs w/ PA [...] ALFRED Transcribed Date and Time: 09/25/2021 5:04 [facility] Work Phone: Radiology Study observation (narrative) [facility] Work Phone: XR RIBS RIGHT INCLUDE CHEST (MIN 3 VIEWS)Ordered By: Lawrence Pena on 09-25-2021 [facility] Work Phone: CR Chest Portableon 08-23-19 CR Chest Portable Patient Name: SEE PARIS Diagnostic Radiology ACCESSION EXAM DATE/TIME PROCEDURE ORDERING PROVIDER [id number] 08/22/2021 08:52 EDT CR Chest Portable MD MONTES DE OCA A[place]IN CPT code 05255 Reason For Exam (CR Chest Portable) cough [...] Transcribed Date and Time: 08/22/2021 9:12 Normal [facility] ED Provider Noteon ED Provider Note Emergency Department Encounter [facility] Patient: See Paris : 1945 Date of Evaluation: 08/22/2021 ED Provider: Jeff Montes De Oca MD Chief Complaint Chief Complaint Patient presents with ? Cough x1 week has been seen for this recently EGEGIK I wore appropriate PPE for the entirety of this encounter. Does this patient come from an ECF, SNF, Rehab, Long-Term or other Congregate setting: no (If yes [...] otherwise acutely negative except as in the EGEGIK. Past History Past Medical History: Diagnosis Date [...] and Family: Not on file ? Attends Caodaism Services: Not on file ? Active Member [...] Real-time, RT-PCR This assay was developed by [employer] and distributed under an Emergency Use Authorization (EUA) granted by the FDA for the qualitative detection of nucleic acids from SARS-CoV-2, Influenza A, Influenza B, and Respiratory Syncytial Virus. Provider and patient fact sheets can be found at https://www.fda.gov/ media/351414/downloa d and https://www.fda.gov/ media/717790/downloa d. Radiographs: XR CHEST PORTABLE Result Da (more content not included)... Normal [facility] SARS-CoV-2, Flu A/B and RSVo n 08-22-2021 SARS-CoV-2 (COVID-19) RNA KIESHA+probe Ql (Unsp spec) SARS-CoV-2 --> Status: F Not Detected. Flu A PCR --> Status: F Not Detected. Flu B PCR --> Status: F Not Detected. RSV PCR --> Status: F DETECTED Expected Result: Not Detected _ Method: Real-time, RT-PCR This assay was developed by [employer] and distributed under an Emergency Use Authorization (EUA) granted by the FDA for the qualitative detection of nucleic acids from SARS-CoV-2, Influenza A, Influenza B, and Respiratory Syncytial Virus. Provider and patient fact sheets can be found at https://www.fda.gov/ media/268289/downloa d and https://www.fda.gov/ media/272859/downloa d. Expected Result: Not Detected _ Method: Real-time, RT-PCR This assay was developed by [employer] and distributed under an Emergency Use Authorization (EUA) granted by the FDA for the qualitative detection of nucleic acids from SARS-CoV-2, Influenza A, Influenza B, and Respiratory Syncytial Virus. Provider and patient fact sheets can be found at https://www.fda.gov/ media/460467/downloa d and https://www.fda.gov/ media/469846/downloa d. Abnormal [facility] Comment on above: Performed By: #### C VFLR ####[facility] [place] [address], [address] Otheron 07-13-2020 Testosterone [Mass/Vol] 472 ng/dL 250 - 827 ng/dL [facility] XR CERVICAL SPINE W OBLIQUES FLEXION AND EXTENSIONon 06-29-2020 Patient Name: SEE PARIS Diagnostic Radiology ACCESSION EXAM DATE/TIME PROCEDURE ORDERING PROVIDER [id number] 06/29/2020 14:14 EST CR Spine Cervical Comp RANJIT, DO, JERMAINE D w/ Obliques CPT code 98793 Reason For Exam (CR Spine Cervical Comp [...] WILLIAM Transcribed Date and Time: 06/29/2020 9:05 [facility] Work Phone: [facility] Incoming Radiology Results From [facility] - 06/29/2020 9:05 PM EST Patient Name: SEE PARIS Diagnostic Radiology ACCESSION EXAM DATE/TIME PROCEDURE ORDERING PROVIDER [id number] 06/29/2020 14:14 EST CR Spine Cervical Comp RANJIT, DO, JERMAINE D w/ Obliques CPT code 16730 Reason For Exam (CR Spine Cervical Comp [...] WILLIAM Transcribed Date and Time: 06/29/2020 9:05 [facility] Work Phone: Otheron 02-23-2020 Testosterone [Mass/Vol] 479 ng/dL 250 - 827 ng/dL [facility] Clinical Summary: HMSPatient IDon 12-03-2019 OOP [facility] Work Phone: Office Visit: New/Est - 1st visit with physician, Rm: 41on 12-03-2019 NEGATED: Highlighted rowxray history of the lumbar spine on 11/02/2019 at [facility] Work Phone: XR Lumbosacral W Obliques Fl ex and Sidon 11-02-2019 Patient Name: SEE PARIS ---Diagnostic Radiology--- Exam Date/Time 11/02/2019 13:45:00 EDT Exam CR Spine Lumbosacral Complete w/ Bending Ordering Physician DO CHURCH JOSHUA D Accession Number [id number] CPT4 Codes 84943 () Reason For Exam lumbago with bilateral [...] anterolisthesis of L5-S1. Report Dictated on Workstation: [id number] --- Final --- Dictating Physician: DO PENA ALFRED Signed Date and Time: 11/02/2019 3:15 pm Signed by: DO PENA ALFRED Transcribed Date and Time: 11/02/2019 3:16 [place], [place] [facility], [facility] Incoming Radiology Results From [facility] - 11/02/2019 3:16 PM EDT Patient Name: SEE PARIS ---Diagnostic Radiology--- Exam Date/Time 11/02/2019 13:45:00 EDT Exam CR Spine Lumbosacral Complete w/ Bending Ordering Physician DO CHURCH JOSHUA D Accession Number [id number] CPT4 Codes 39742 () Reason For Exam lumbago with bilateral [...] anterolisthesis of L5-S1. Report Dictated on Workstation: [id number] --- Final --- Dictating Physician: DO PENA ALFRED Signed Date and Time: 11/02/2019 3:15 pm Signed by: DO PENA ALFRED Transcribed Date and Time: 11/02/2019 3:16 [place] MRA BRAIN WO IVCONon 019 MRA BRAIN WO IVCON * * *Final Report* * * DATE OF EXAM: Jan 20 2019 9:00AM [facility] 0272 - MRA BRAIN WO IVCON / PROCEDURE REASON: Vertigo * * * * Physician Interpretation * * * * EXAMINATION: MRI BRAIN WO IVCON, MRA BRAIN WO IVCON, MRA CAROTID WO IVCON CLINICAL HISTORY: Dizziness x4 days TECHNIQUE: Routine noncontrast MRI brain protocol including diffusion images. Intracranial and extracranial 3D ixea-uz-plwoyj MRA. 3D maximum intensity projection images were [...] brain. 2. Negative MRA head and neck Electromechanisms Design Drafter: PSCB Transcribe Date/Time: Jan 20 2019 9:49A Dictated by : AUGUST GARCIA MD This examination was interpreted and the report reviewed and electronically signed by: AUGUST GARCIA MD on Jan 20 2019 10:15AM EST Normal [facility] MRA CAROTID WO IVCONon 01-20 MRA CAROTID WO IVCON * * *Final Report* * * DATE OF EXAM: Jan 20 2019 9:00AM [facility] 0275 - MRA CAROTID WO IVCON / PROCEDURE REASON: Vertigo * * * * Physician Interpretation * * * * EXAMINATION: MRI BRAIN WO IVCON, MRA BRAIN WO IVCON, MRA CAROTID WO IVCON CLINICAL HISTORY: Dizziness x4 days TECHNIQUE: Routine noncontrast MRI brain protocol including diffusion images. Intracranial and extracranial 3D rtjk-rm-xeeqtm MRA. 3D maximum intensity projection images were [...] brain. 2. Negative MRA head and neck Electromechanisms Design Drafter: KELLY Transcribe Date/Time: Jan 20 2019 9:49A Dictated by : AUGUST GARCIA MD This examination was interpreted and the report reviewed and electronically signed by: AUGUST GARCIA MD on Jan 20 2019 10:15AM EST Normal [facility] MRI BRAIN WO IVCONon 019 MRI BRAIN WO IVCON * * *Final Report* * * DATE OF EXAM: Jan 20 2019 9:00AM [facility] 0294 - MRI BRAIN WO IVCON / PROCEDURE REASON: Vertigo * * * * Physician Interpretation * * * * EXAMINATION: MRI BRAIN WO IVCON, MRA BRAIN WO IVCON, MRA CAROTID WO IVCON CLINICAL HISTORY: Dizziness x4 days TECHNIQUE: Routine noncontrast MRI brain protocol including diffusion images. Intracranial and extracranial 3D rjvy-bi-jzolgm MRA. 3D maximum intensity projection images were [...] brain. 2. Negative MRA head and neck Electromechanisms Design Drafter: KELLY Transcribe Date/Time: Jan 20 2019 9:49A Dictated by : AUGUST GARCIA MD This examination was interpreted and the report reviewed and electronically signed by: AUGUST GARCIA MD on Jan 20 2019 10:15AM EST Normal [facility] Basic Panelon 01-18-2019 Creatinine [Mass/Vol] 1.10 mg/dL Normal 0.67-1.17 [facility] Comment on above: Performed By: #### C BCD1 #### [place] [address] Anion gap [Moles/Vol] 8 mmol/L Normal 8-16 [facility] Comment on above: Performed By: #### C BCD1 #### [place] [id number] Calcium [Mass/Vol] 8.2 mg/dL Low 8.5-10.1 [facility] Comment on above: Performed By: #### C BCD1 #### [facility] [address] [place], [place] [address] CO2 [Moles/Vol] 24 mmol/L Normal 21-32 [facility] Comment on above: Performed By: #### C BCD1 #### [facility] [address] [place], [place] [address] Glucose [Mass/Vol] 96 mg/dL Normal 70-99 [facility] Comment on above: Performed By: #### C BCD1 #### [facility] [address] [place], [place] [address] Urea nitrogen [Mass/Vol] 15 mg/dL Normal 7-18 [facility] Comment on above: Performed By: #### C BCD1 #### [facility] [address] [place], [place] [address] Chloride [Moles/Vol] 113 mmol/L High 98-107 [facility] Comment on above: Performed By: #### C BCD1 #### [facility] [address] [place], [place] [address] Potassium [Moles/Vol] 3.9 mmol/L Normal 3.5-5.1 [facility] Comment on above: Performed By: #### C BCD1 #### [facility] [address] [place], [place] [address] Sodium [Moles/Vol] 141 mmol/L Normal 136-145 [facility] Comment on above: Performed By: #### C BCD1 #### [facility] [address] [place], [place] [address] Hemogramon 01-18-2019 Erythrocyte distribution width (RBC) [Ratio] 13.0 % Normal 11.6-14.4 [facility] Comment on above: Performed By: #### C BC1 #### [facility] [address] [place], [place] [address] Hematocrit (Bld) [Volume fraction] 41.2 % Normal 40.1-51.0 [facility] Comment on above: Performed By: #### C BC1 #### [facility] [address] [place], [place] [address] Hemoglobin (Bld) [Mass/Vol] 13.7 g/dL Normal 13.7-17.5 [facility] Comment on above: Performed By: #### C BC1 #### [facility] [address] [place], [place] [address] MCH (RBC) [Entitic mass] 31.5 pg Normal 25.7-32.2 [facility] Comment on above: Performed By: #### C BC1 #### [facility] [address] [place] [address] MCHC (RBC) [Mass/Vol] 33.3 % Normal 32.3-36.5 [facility] Comment on above: Performed By: #### C BC1 #### [facility] [address] [place] [address] MCV (RBC) [Entitic vol] 94.7 fL Normal 83.2-95.6 [facility] Comment on above: Performed By: #### C BC1 #### [facility] [address] [place] [address] Platelet mean volume (Bld) [Entitic vol] 9.3 fL Normal 8.7-12.0 [facility] Comment on above: Performed By: #### C BC1 #### [facility] [address] [place] [address] Platelets (Bld) [#/Vol] 120 thou/cmm Low 141-365 [facility] Comment on above: Performed By: #### C BC1 #### [facility] [address] [place] [address] RBC (Bld) [#/Vol] 4.35 mil/cmm Low 4.63-6.08 [facility] Comment on above: Performed By: #### C BC1 #### [facility] [address] [place] [address] RDW SD 44.4 fl Normal 36.1-45.8 [facility] Comment on above: Performed By: #### C BC1 #### [facility] [address] [place] [address] WBC (Bld) [#/Vol] 5.78 thou/cmm Normal 4.23-9.07 [facility] Comment on above: Performed By: #### C BC1 #### [facility] [address] [place] [id number] MDRD GFRon 01-18-2019 GFR/1.73 sq M predicted among non-blacks MDRD (S/P/Bld) [Vol rate/Area] mL/min/{1.73_m2} Normal >60mL/min/1. 73m2 [facility] Comment on above: Result Comment: If t he patient is , multiply the result by 1.210. Performed By: #### G FR #### [place] [id number] Magnesium Bloodon 01-18-2019 Magnesium [Mass/Vol] 2.0 mg/dL Normal 1.6-2.6 [facility] Comment on above: Performed By: #### C BCD1 #### [place] [id number] CT BRAIN WO IVCONon 01-18-[address] BRAIN WO IVCON * * *Final Report* * * DATE OF EXAM: Jan 17 2019 11:35AM [facility] 0504 - CT BRAIN WO IVCON [...] for the patient's age as described above. Electromechanisms Design Drafter: PSCB Transcribe Date/Time: Jan 17 2019 11:49A Dictated by : BERNICE GASCA MD This examination was interpreted and the report reviewed and electronically signed by: BERNICE GASCA MD on Jan 17 2019 12:07PM EST Normal [facility] Comprehensive Panelon 2018 ALP [Catalytic activity/Vol] 51 U/L Normal 45-117 [facility] Comment on above: Performed By: #### P 14 #### [facility] [address] [place], [place] [address] Bilirubin [Mass/Vol] 0.6 mg/dL Normal 0.2-1.0 [facility] Comment on above: Performed By: #### P 14 #### [facility] [address] [place], [place] [address] Protein [Mass/Vol] 6.9 g/dL Normal 6.4-8.2 [facility] Comment on above: Performed By: #### P 14 #### [facility] [address] [place], [place] [address] ALT [Catalytic activity/Vol] 22 U/L Normal 12-78 [facility] Comment on above: Performed By: #### P 14 #### [facility] [address] [place], [place] [address] AST [Catalytic activity/Vol] 19 U/L Normal 15-37 [facility] Comment on above: Performed By: #### P 14 #### [facility] [address] [place], [place] [address] Creatinine [Mass/Vol] 1.03 mg/dL Normal 0.67-1.17 [facility] Comment on above: Performed By: #### P 14 #### [facility] [address] [place], [place] [address] Albumin [Mass/Vol] 3.7 g/dL Normal 3.4-5.0 [facility] Comment on above: Performed By: #### P 14 #### [facility] [address] [place], [place] [address] Anion gap [Moles/Vol] 11 mmol/L Normal 8-16 [facility] Comment on above: Performed By: #### P 14 #### [facility] [address] [place], [place] [address] CO2 [Moles/Vol] 26 mmol/L Normal 21-32 [facility] Comment on above: Performed By: #### P 14 #### [facility] [address] [place], [place] [address] Glucose [Mass/Vol] 97 mg/dL Normal 70-99 [facility] Comment on above: Performed By: #### P 14 #### [facility] [address] [place], [place] [address] Urea nitrogen [Mass/Vol] 18 mg/dL Normal 7-18 [facility] Comment on above: Performed By: #### P 14 #### [facility] [address] [place], [place] [address] Calcium [Mass/Vol] 8.6 mg/dL Normal 8.5-10.1 [facility] Comment on above: Performed By: #### P 14 #### [facility] [address] [place] [address] Chloride [Moles/Vol] 110 mmol/L High 98-107 [facility] Comment on above: Performed By: #### P 14 #### [facility] [address] [place] [address] Potassium [Moles/Vol] 4.0 mmol/L Normal 3.5-5.1 [facility] Comment on above: Performed By: #### P 14 #### [facility] [address] [place] [address] Sodium [Moles/Vol] 143 mmol/L Normal 136-145 [facility] Comment on above: Performed By: #### P 14 #### [facility] [address] [place], [place] [address] Folateon 01-17-2019 Folate 19.80 ng/mL High 3.10-17.50 [facility] Comment on above: Performed By: #### F OL #### [facility] [address] [place] [address] Hemogram/Diffon 01-17-2019 Abs Immature Grans 0.03 thou/cmm Normal 0.00-0.05 [facility] Comment on above: Performed By: #### C BCD1 #### [facility] [address] [place], [place] [address] Abs Neut (ANC) 4.63 thou/cmm Normal 1.78-5.38 [facility] Comment on above: Performed By: #### C BCD1 #### [facility] [address] [place] [address] Abs. Baso 0.02 thou/cmm Normal 0.01-0.08 [facility] Comment on above: Performed By: #### C BCD1 #### [facility] [address] [place], [place] [address] Abs. Cedar 0.42 thou/cmm Normal 0.30-0.82 [facility] Comment on above: Performed By: #### C BCD1 #### [facility] [address] [place] [address] Basophils/100 WBC (Bld) 0.3 % Normal [facility] Comment on above: Performed By: #### C BCD1 #### [facility] [address] [place] [address] Eosinophils (Bld) [#/Vol] 0.08 thou/cmm Normal 0.04-0.54 [facility] Comment on above: Performed By: #### C BCD1 #### [facility] [address] [place] [address] Eosinophils/100 WBC (Bld) 1.4 % Normal [facility] Comment on above: Performed By: #### C BCD1 #### [facility] [address] [place] [address] Erythrocyte distribution width (RBC) [Ratio] 13.0 % Normal 11.6-14.4 [facility] Comment on above: Performed By: #### C BCD1 #### [facility] [address] [place] [address] Hematocrit (Bld) [Volume fraction] 46.8 % Normal 40.1-51.0 [facility] Comment on above: Performed By: #### C BCD1 #### [facility] [address] [place] [address] Hemoglobin (Bld) [Mass/Vol] 15.5 g/dL Normal 13.7-17.5 [facility] Comment on above: Performed By: #### C BCD1 #### [facility] [address] [place] [address] Immature Grans 0.50 % Normal [facility] Comment on above: Performed By: #### C BCD1 #### [facility] [address] [place], [place] [address] Lymphocytes (Bld) [#/Vol] 0.74 thou/cmm Low 0.84-2.85 [facility] Comment on above: Performed By: #### C BCD1 #### [facility] [address] [place], [place] [address] Lymphocytes/100 WBC (Bld) 12.5 % Normal [facility] Comment on above: Performed By: #### C BCD1 #### [facility] [address] [place], [place] [address] MCH (RBC) [Entitic mass] 31.1 pg Normal 25.7-32.2 [facility] Comment on above: Performed By: #### C BCD1 #### [facility] [address] [place], [place] [address] MCHC (RBC) [Mass/Vol] 33.1 % Normal 32.3-36.5 [facility] Comment on above: Performed By: #### C BCD1 #### [facility] [address] [place], [place] [address] MCV (RBC) [Entitic vol] 93.8 fL Normal 83.2-95.6 [facility] Comment on above: Performed By: #### C BCD1 #### [facility] [address] [place], [place] [address] Monocytes/100 WBC (Bld) 7.1 % Normal [facility] Comment on above: Performed By: #### C BCD1 #### [facility] [address] [place], [place] [address] Platelet mean volume (Bld) [Entitic vol] 9.6 fL Normal 8.7-12.0 [facility] Comment on above: Performed By: #### C BCD1 #### [facility] [address] [place], [place] [address] Platelets (Bld) [#/Vol] 125 thou/cmm Low 141-365 [facility] Comment on above: Performed By: #### C BCD1 #### [facility] [address] [place] [address] RBC (Bld) [#/Vol] 4.99 mil/cmm Normal 4.63-6.08 [facility] Comment on above: Performed By: #### C BCD1 #### [facility] [address] [place] [address] RDW SD 44.1 fl Normal 36.1-45.8 [facility] Comment on above: Performed By: #### C BCD1 #### [facility] [address] [place] [address] Seg Neutrophil 78.2 % Normal [facility] Comment on above: Performed By: #### C BCD1 #### [facility] [address] [place] [address] WBC (Bld) [#/Vol] 5.92 thou/cmm Normal 4.23-9.07 [facility] Comment on above: Performed By: #### C BCD1 #### [facility] [address] [place] [address] TSH, 3rd generationon 2018 TSH, 3rd generation 2.580 uIU/mL Normal 0.358-3.740 [facility] Comment on above: Performed By: #### T SH3 #### [facility] [address] [place] [address] Urinalysis Routineon 019 Bacteria LM.HPF (Urine sed) [#/Area] NONE Normal None [facility] Comment on above: Performed By: #### U RIN2 #### [facility] [address] [place] [address] Ep Cells Urine 0.1 /hpf Normal 0.0-5.0 [facility] Comment on above: Performed By: #### U RIN2 #### [facility] [address] [place] [address] Hyaline Cast 0.0 /lpf Normal 0.0-1.0 [facility] Comment on above: Performed By: #### U RIN2 #### [place] [address] RBC LM.HPF (Urine sed) [#/Area] 4.6 /[HPF] Normal 0.0-5.0 [facility] Comment on above: Performed By: #### U RIN2 #### [facility] [address] [place] [address] WBC LM.HPF (Urine sed) [#/Area] 0.3 /[HPF] Normal 0.0-5.0 [facility] Comment on above: Performed By: #### U RIN2 #### [place] [address] Appearance (U) CLEAR Normal [facility] Comment on above: Performed By: #### U RIN2 #### [place] [address] Bilirubin (U) [Mass/Vol] Negative Normal Negative [facility] Comment on above: Performed By: #### U RIN2 #### [place] [address] Color (U) YELLOW Normal [facility] Comment on above: Performed By: #### U RIN2 #### [place] [address] Glucose Ql (U) Negative Normal Negative [facility] Comment on above: Performed By: #### U RIN2 #### [place] [address] Hemoglobin,Urine Negative Normal Negative [place] Comment on above: Performed By: #### U RIN2 #### [place] [address] Ketone Urine Negative Normal Negative [facility] Comment on above: Performed By: #### U RIN2 #### [place] [address] Leukocytes Esterase Negative Normal Negative [facility] Comment on above: Performed By: #### U RIN2 #### [place] [address] Nitrites Urine Negative Normal Negative [facility] Comment on above: Performed By: #### U RIN2 #### [place] [address] pH (U) 8.5 [pH] Abnormal 5.0-8.0 [facility] Comment on above: Performed By: #### U RIN2 #### [facility] [address] [place] [address] Protein (U) [Mass/Vol] Negative Normal Negative [facility] Comment on above: Performed By: #### U RIN2 #### [facility] [address] [place] [address] Specific [place], Ur 1.020 Normal 1.005-1.030 [facility] Comment on above: Performed By: #### U RIN2 #### [facility] [address] [place] [address] Urobilinogen,Ur 0.2 EU/dL Normal 0.2-1.0 [facility] Comment on above: Performed By: #### U RIN2 #### [facility] [address] [place] [address] Vitamin B12on 01-17-2019 Cobalamin (Vitamin B12) [Mass/Vol] 332 pg/mL Normal 193-986 [facility] Comment on above: Performed By: #### B 12 #### [facility] [address] [place] [address] XR CHEST 2V FRONTAL/LATon XR CHEST 2V [...] Other: None IMPRESSION: No acute radiographic abnormality. Electromechanisms Design Drafter: KELLY Transcribe Date/Time: Jan 17 2019 11:28A Dictated by : DEMETRA VIDAL MD This examination was interpreted and the report reviewed and electronically signed by: DEMETRA VIDAL MD on Jan 17 2019 11:29AM EST Normal [facility] SURGICAL PATHOLOGYon 017 BMI (Body Mass Index) Specimen #: [id number] Physician: Bernice Tamayo M.D. FI NAL DIAGNOSISRight eye lesion, excision - Intradermal nevus.[facility] [place]12-06-19[facility] Nazanin Patiño M.D.(Electronic Signature) SPE CIMEN SUBMITTEDA: RIGHT EYE CLINICAL DATABENIGN NEOPLASM OF RULGROSS DESCRIPTIONA. Received in formalin is a 0.2 x 0.1 x 0.1 cm shave of skin. The specimenis not sectioned. Totally submitted in formalin in one cassette.Gross examination performed at [facility], [address] [place] [address] 12/04/2016 2:08:54 PMPatient ID #: Date of Report: 12/06/2016Date of Procedure: 12/04/2016Date of Receipt: 12/04/2016Submitted by: Bernice Tamayo M.D.Location: Diagnostic interpretation performed at [facility], [address] [place] [address]. Normal [facility] Reference Lab Comment on above: Performed By: #### S ####See report for performing lab information. Otheron 12-04-2007 CONVERTED ELECTRONIC SIGNATURE ROLAND MEJIA M.D. (Electronic signature on file) Final Signed Out: 12/04/2007 12:43 [facility] CONVERTED FINAL DIAGNOSIS RADICAL RETROPUBIC PROSTATECTOMY [...] 6th Edition, is pT2c NX MX. A telemarketing sales representative slide from this case (A7) was also reviewed by Dr. Bull Fisher. [facility] CONVERTED ORDERING PROVIDER Ordering Provider: MARY GONZALEZ [facility] Otheron 06-24-2002 CONVERTED ELECTRONIC SIGNATURE MARISA SELLERS M.D., PATHOLOGIST (Electronic signature on file) Final Signed Out: 06/24/2002 14:04 [facility] CONVERTED FINAL DIAGNOSIS A) PROSTATE, RIGHT, NEEDLE BIOPSY - NEGATIVE FOR MALIGNANCY. B) PROSTATE, LEFT LOBE, NEEDLE BIOPSY - NEGATIVE FOR MALIGNANCY. COMMENT: Both of the specimens are also reviewed by Drs. Scales and Wilmer and they concur with the diagnosis. [facility] CONVERTED ORDERING PROVIDER Ordering Provider: GALEN HAGER [facility] Vital Signs Date Time Vital Sign Value Performing Clinician Facility 01-17-2025 01:59-0400 Body temperature 97.59 [degF] Nivia Brown MD Work Phone: [facility] 01-17-2025 01:59-0400 Diastolic blood pressure 82 mm[Hg] Nivia Brown MD Work Phone: [facility] 01-17-2025 01:59-0400 Heart rate 63 /min Nivia Brown MD Work Phone: [facility] 01-17-2025 01:59-0400 Respiratory rate 15 /min Nivia Brown MD Work Phone: [facility] 01-17-2025 01:59-0400 SaO2% (BldA) [Mass fraction] 98 % Nivia Brown MD Work Phone: [facility] 01-17-2025 01:59-0400 Systolic blood pressure 176 mm[Hg] Nivia Brown MD Work Phone: [facility] 01-17-2025 01:59-0400 Body height 177.8 cm Nivia Brown MD Work Phone: [facility] 01-17-2025 01:59-0400 Body mass index (BMI) [Ratio] 28.7 kg/m2 Nivia Brown MD Work Phone: [facility] 01-17-2025 01:59-0400 Body weight 90.72 kg Nivia Brown MD Work Phone: [facility] 11-16-2024 20:29-0400 Diastolic blood pressure 68 mm[Hg] Mejgon Corinne DO Work Phone: [facility] 11-16-2024 20:29-0400 Heart rate 74 /min Mejgon Corinne DO Work Phone: [facility] 11-16-2024 20:29-0400 Respiratory rate 16 /min Mejgon Corinne DO Work Phone: [facility] 11-16-2024 20:29-0400 SaO2% (BldA) [Mass fraction] 100 % Mejgon Corinne DO Work Phone: [facility] 11-16-2024 20:29-0400 Systolic blood pressure 151 mm[Hg] Mejgon Corinne DO Work Phone: [facility] 11-16-2024 19:01-0400 Body height 177.8 cm Mejgon Corinne DO Work Phone: [facility] 11-16-2024 19:01-0400 Body mass index (BMI) [Ratio] 27.98 kg/m2 Mejgon Corinne DO Work Phone: [facility] 11-16-2024 19:01-0400 Body temperature 97.81 [degF] Mejgon Corinne DO Work Phone: [facility] 11-16-2024 19:01-0400 Body weight 88.45 kg Mejgon Corinne DO Work Phone: [facility] 11-15-2024 23:31-0400 Body height 177.[address] Jermaine Church DO Work Phone: [facility] 11-15-2024 23:31-0400 Body mass index (BMI) [Ratio] 28.9 kg/m2 Dr. Jermaine Church DO Work Phone: [facility] 11-15-2024 23:31-0400 Body temperature 97.6 [degF] Dr. Jermaine Church DO Work Phone: [facility] 11-15-2024 23:31-0400 Body weight 91.[address] Jermaine Church DO Work Phone: [facility] 11-15-2024 23:31-0400 Diastolic blood pressure 70 mm[Hg] Dr. Jermaine Church DO Work Phone: [facility] 11-15-2024 23:31-0400 Heart rate 57 /min Dr. Jermaine Church DO Work Phone: [facility] 11-15-2024 23:31-0400 Respiratory rate 18 /min Dr. Jermaine Church DO Work Phone: [facility] 11-15-2024 23:31-0400 SaO2% (BldA) [Mass fraction] 100 % Dr. Jermaine Church DO Work Phone: [facility] 11-15-2024 23:31-0400 Systolic blood pressure 163 mm[Hg] Dr. Jermaine Church DO Work Phone: [facility] 09-23-2024 13:44-0400 Body height 177.8 cm Mary Gonzalez MD Work Phone: [facility] 09-23-2024 13:44-0400 Body mass index (BMI) [Ratio] 26.98 kg/m2 Mary Gonzalez MD Work Phone: [facility] 09-23-2024 13:44-0400 Body weight 85.28 kg Mary Gonzalez MD Work Phone: [facility] 09-23-2024 13:44-0400 Heart rate 90 /min Mary Gonzalez MD Work Phone: [facility] 09-23-2024 13:44-0400 SaO2% (BldA) [Mass fraction] 98 % Mary Gonzalez MD Work Phone: [facility] 09-05-2024 07:05-0400 Body temperature 97.6 [degF] Dr. Jermaine Church DO Work Phone: [facility] 09-05-2024 07:05-0400 Diastolic blood pressure 68 mm[Hg] Dr. Jermaine Church DO Work Phone: [facility] 09-05-2024 07:05-0400 Heart rate 59 /min Dr. Jermaine Church DO Work Phone: [facility] 09-05-2024 07:05-0400 Respiratory rate 14 /min Dr. Jermaine Church DO Work Phone: [facility] 09-05-2024 07:05-0400 SaO2% (BldA) [Mass fraction] 95 % Dr. Jermaine Church DO Work Phone: [facility] 09-05-2024 07:05-0400 Systolic blood pressure 141 mm[Hg] Dr. Jermaine Church DO Work Phone: [facility] 09-05-2024 05:22-0400 Body height 177.[address] Jermaine Church DO Work Phone: [facility] 09-05-2024 05:22-0400 Body mass index (BMI) [Ratio] 27.8 kg/m2 Dr. Jermaine Church DO Work Phone: [facility] 09-05-2024 05:22-0400 Body weight 88.[address] Jermaine Church DO Work Phone: [facility] 09-03-2024 06:59-0400 Body temperature 98.2 [degF] Dr. Jermaine Church DO Work Phone: [facility] 09-03-2024 06:59-0400 Diastolic blood pressure 77 mm[Hg] Dr. Jermaine Church DO Work Phone: [facility] 09-03-2024 06:59-0400 Heart rate 71 /min Dr. Jermaine Church DO Work Phone: [facility] 09-03-2024 06:59-0400 Respiratory rate 17 /min Dr. Jemraine Church DO Work Phone: [facility] 09-03-2024 06:59-0400 SaO2% (BldA) [Mass fraction] 97 % Dr. Jermaine Church DO Work Phone: [facility] 09-03-2024 06:59-0400 Systolic blood pressure 141 mm[Hg] Dr. Jermaine Church DO Work Phone: [facility] 09-03-2024 04:27-0400 Body height 177.[address] Jermaine Church DO Work Phone: [facility] 09-03-2024 04:27-0400 Body mass index (BMI) [Ratio] 28.2 kg/m2 Dr. Jermaine Church DO Work Phone: [facility] 09-03-2024 04:27-0400 Body weight 89.[address] Jermaine Church DO Work Phone: [facility] 08-18-2024 10:28-0400 Body height 177.8 cm Rafael Moncada APRN.CNP, DNP Work Phone: [facility] 08-18-2024 10:28-0400 Body mass index (BMI) [Ratio] 27.84 kg/m2 Rafael Moncada APRN.CNP, DNP Work Phone: [facility] 08-18-2024 10:28-0400 Body weight 88 kg Rafael Moncada APRN.CNP, DNP Work Phone: [facility] 08-08-2024 07:38-0400 Body temperature 97.9 [degF] Jimmy Kulkarni DDS Work Phone: [facility] 08-08-2024 07:38-0400 Diastolic blood pressure 74 mm[Hg] Jimmy Kulkarni DDS Work Phone: [facility] 08-08-2024 07:38-0400 Heart rate 55 /min Jimmy Kulkarni DDS Work Phone: [facility] 08-08-2024 07:38-0400 Respiratory rate 17 /min Jimmy Kulkarni DDS Work Phone: [facility] 08-08-2024 07:38-0400 SaO2% (BldA) [Mass fraction] 97 % Jimmy Kulkarni DDS Work Phone: [facility] 08-08-2024 07:38-0400 Systolic blood pressure 165 mm[Hg] Jimmy Kulkarni DDS Work Phone: [facility] 08-06-2024 05:00-0400 Body mass index (BMI) [Ratio] 27.58 kg/m2 Jimmy Kulkarni DDS Work Phone: [facility] 08-06-2024 05:00-0400 Body weight 87.18 kg Jimmy Kulkarni DDS Work Phone: [facility] 08-05-2024 08:30-0400 Body height 177.8 cm Jimmy Kulkarni DDS Work Phone: [facility] 06-14-2024 12:19-0500 Diastolic blood pressure 66 mm[Hg] Mejgon Corinne DO Work Phone: [employer] 06-14-2024 12:19-0500 Heart rate 64 /min Mejgon Corinne DO Work Phone: [facility] [employer] 06-14-2024 12:19-0500 Respiratory rate 16 /min Mejgon Corinne DO Work Phone: [facility] [employer] 06-14-2024 12:19-0500 SaO2% (BldA) [Mass fraction] 100 % Arpan Sun DO Work Phone: [employer] 06-14-2024 12:19-0500 Systolic blood pressure 151 mm[Hg] Arpan Sun DO Work Phone: [employer] 06-14-2024 10:41-0500 Body height 177.8 cm Arpan Sun DO Work Phone: [employer] 06-14-2024 10:41-0500 Body mass index (BMI) [Ratio] 28.7 kg/m2 Arpan Sun DO Work Phone: [employer] 06-14-2024 10:41-0500 Body temperature 98.1 [degF] Arpan Sun DO Work Phone: [employer] 06-14-2024 10:41-0500 Body weight 90.72 kg Arpan Sun DO Work Phone: [facility] [employer] 03-11-2024 13:27-0400 Body height 177.8 cm Mary Gonzalez MD Work Phone: [facility] 03-11-2024 13:27-0400 Body mass index (BMI) [Ratio] 27.98 kg/m2 Mary Gonzalez MD Work Phone: [facility] 03-11-2024 13:27-0400 Body weight 88.45 kg Mary Gonzalez MD Work Phone: [facility] 03-11-2024 13:27-0400 Heart rate 86 /min Mary Gonzalez MD Work Phone: [facility] 03-11-2024 13:27-0400 SaO2% (BldA) [Mass fraction] 95 % Mary Gonzalez MD Work Phone: [facility] 09-05-2023 14:04-0400 Body height 177.8 cm Mary Gonzalez MD Work Phone: [facility] 09-05-2023 14:04-0400 Body weight 95.25 kg Mary Gonzalez MD Work Phone: [facility] 09-05-2023 14:04-0400 Heart rate 65 /min Mary Gonzalez MD Work Phone: [facility] 09-05-2023 14:04-0400 SaO2% (BldA) [Mass fraction] 98 % Mary Gonzalez MD Work Phone: [facility] 08-21-2023 10:15-0400 Body height 177.8 cm Suzan Teixeira SILK SCREEN PRINTER - SPRAY PAINTING MACHINE OPERATOR Work Phone: [facility] [employer] 08-21-2023 10:15-0400 Body mass index (BMI) [Ratio] 30.71 kg/m2 Suzan Teixeira SILK SCREEN PRINTER - SPRAY PAINTING MACHINE OPERATOR Work Phone: [facility] 08-21-2023 10:15-0400 Body weight 97.07 kg Suzan Teixeira SILK SCREEN PRINTER - SPRAY PAINTING MACHINE OPERATOR Work Phone: [facility] [employer] 08-21-2023 10:15-0400 Diastolic blood pressure 78 mm[Hg] Suzan Teixeira SILK SCREEN PRINTER - SPRAY PAINTING MACHINE OPERATOR Work Phone: [facility] [employer] 08-21-2023 10:15-0400 Heart rate 76 /min Suzan Teixeira SILK SCREEN PRINTER - SPRAY PAINTING MACHINE OPERATOR Work Phone: [facility] [employer] 08-21-2023 10:15-0400 Systolic blood pressure 173 mm[Hg] Suzan Teixeira SILK SCREEN PRINTER - SPRAY PAINTING MACHINE OPERATOR Work Phone: [facility] 07-29-2023 12:59-0400 Body height 177.8 cm Mary Gonzalez MD Work Phone: [facility] 07-29-2023 12:59-0400 Body weight 95.25 kg Mary Gonzalez MD Work Phone: [facility] 07-29-2023 12:59-0400 Heart rate 71 /min Mary Gonzalez MD Work Phone: [facility] 07-29-2023 12:59-0400 SaO2% (BldA) [Mass fraction] 94 % Mary Gonzalez MD Work Phone: [facility] 07-12-2023 10:24-0500 Body height 177.8 cm Marcos Newsome MD Work Phone: [facility] 07-12-2023 10:24-0500 Body mass index (BMI) [Ratio] 30.79 kg/m2 Marcos Newsome MD Work Phone: [facility] 07-12-2023 10:24-0500 Body weight 97.34 kg Marcos Newsome MD Work Phone: [facility] 07-12-2023 10:24-0500 Diastolic blood pressure 73 mm[Hg] Marcos Newsome MD Work Phone: [facility] 07-12-2023 10:24-0500 Heart rate 84 /min Marcos Newsome MD Work Phone: [facility] 07-12-2023 10:24-0500 Systolic blood pressure 135 mm[Hg] Marcos Newsome MD Work Phone: [facility] 12-17-2022 12:46-0400 Body height 177.8 cm Mary Gonzalez MD Work Phone: [facility] 12-17-2022 12:46-0400 Body weight 92.99 kg Mary Gonzalez MD Work Phone: [facility] 12-17-2022 12:46-0400 Heart rate 66 /min Mary Gonzalez MD Work Phone: [facility] 12-17-2022 12:46-0400 SaO2% (BldA) [Mass fraction] 96 % Mary Gonzalez MD Work Phone: [facility] 12-15-2022 02:51-0400 Diastolic blood pressure 74 mm[Hg] Dr. Jermaine Church Work Phone: [facility] 12-15-2022 02:51-0400 Respiratory rate 16 /min Dr. Jermaine Church Work Phone: [facility] 12-15-2022 02:51-0400 Systolic blood pressure 128 mm[Hg] Dr. Jermaine Church Work Phone: [facility] 12-15-2022 01:01-0400 Body height 177.[address] Jermaine Church Work Phone: [facility] 12-15-2022 01:01-0400 Body mass index (BMI) [Ratio] 31.7 kg/m2 Dr. Jermaine Church Work Phone: [facility] 12-15-2022 01:01-0400 Body temperature 97.6 [degF] Dr. Jermaine Church Work Phone: [facility] 12-15-2022 01:01-0400 Body weight 100.[address] Jermaine Church Work Phone: [facility] 12-15-2022 01:01-0400 Heart rate 63 /min Dr. Jermaine Church Work Phone: [facility] 12-15-2022 01:01-0400 SaO2% (BldA) [Mass fraction] 97 % Dr. Jermaine Church Work Phone: [facility] 09-19-2022 13:35-0400 Body temperature 96.9 [degF] Dr. Jermaine Church Work Phone: [facility] 09-19-2022 13:35-0400 Diastolic blood pressure 53 mm[Hg] Dr. Jermaine Church Work Phone: [facility] 09-19-2022 13:35-0400 Heart rate 75 /min Dr. Jermaine Church Work Phone: [facility] 09-19-2022 13:35-0400 Respiratory rate 18 /min Dr. Jermaine Church Work Phone: [facility] 09-19-2022 13:35-0400 SaO2% (BldA) [Mass fraction] 97 % Dr. Jermaine Church Work Phone: [facility] 09-19-2022 13:35-0400 Systolic blood pressure 119 mm[Hg] Dr. Jermaine Church Work Phone: [facility] 09-18-2022 09:27-0400 Body mass index (BMI) [Ratio] 30.1 kg/m2 Dr. Jermaine Church Work Phone: [facility] 09-18-2022 09:27-0400 Body weight 95.[address] Jermaine Church Work Phone: [facility] 09-12-2022 15:45-0400 Body height 177.[address] Jermaine Church Work Phone: [facility] 09-06-2022 13:53-0400 Body temperature 99.2 [degF] Dr. Jermaine Church Work Phone: [facility] 09-06-2022 13:53-0400 Diastolic blood pressure 59 mm[Hg] Dr. Jermaine Church Work Phone: [facility] 09-06-2022 13:53-0400 Heart rate 65 /min Dr. Jermaine Church Work Phone: [facility] 09-06-2022 13:53-0400 Respiratory rate 16 /min Dr. Jermaine Church Work Phone: [facility] 09-06-2022 13:53-0400 SaO2% (BldA) [Mass fraction] 97 % Dr. Jermaine Church Work Phone: [facility] 09-06-2022 13:53-0400 Systolic blood pressure 125 mm[Hg] Dr. Jermaine Church Work Phone: [facility] 09-04-2022 15:51-0400 Body height [address] Jermaine Church Work Phone: [facility] 09-04-2022 15:51-0400 Body mass index (BMI) [Ratio] 29.6 kg/m2 Dr. Jermaine Church Work Phone: [facility] 09-04-2022 15:51-0400 Body weight 93.[address] Jermaine Church Work Phone: [facility] 09-04-2022 14:15-0400 Inhaled oxygen flow rate 4 L/min Dr. Jermaine Church Work Phone: [facility] 07-17-2022 15:44-0500 Body mass index (BMI) [Ratio] 33.72 kg/m2 Nickolas Ortiz DO Work Phone: [facility] 07-17-2022 15:44-0500 Body temperature 97.5 [degF] Nickolas Ortiz DO Work Phone: [facility] 07-17-2022 15:44-0500 Body weight 106.59 kg Nickolas Ortiz DO Work Phone: [facility] 07-17-2022 15:44-0500 Diastolic blood pressure 64 mm[Hg] Nickolas Ortiz DO Work Phone: [facility] 07-17-2022 15:44-0500 Heart rate 83 /min Nickolas Ortiz DO Work Phone: [facility] 07-17-2022 15:44-0500 SaO2% (BldA) [Mass fraction] 99 % Nickolas Ortiz DO Work Phone: [facility] 07-17-2022 15:44-0500 Systolic blood pressure 147 mm[Hg] Nickolas Ortiz DO Work Phone: [facility] 07-13-2022 08:43-0500 Body mass index (BMI) [Ratio] 29.8 kg/m2 Dr. Jermaine Church Work Phone: [facility] 07-13-2022 08:43-0500 Body weight 94.[address] Jermaine Church Work Phone: [facility] 07-11-2022 13:45-0500 Body mass index (BMI) [Ratio] 29.5 kg/m2 Dr. Jermaine Church Work Phone: [facility] 02-22-2023 13:45-0500 Body weight 93.[address] Jermaine Church Work Phone: [facility] 06-18-2022 14:43-0500 Body height 177.8 cm Mary Gonzalez MD Work Phone: [facility] 06-18-2022 14:43-0500 Body weight 92.99 kg Mary Gonzalez MD Work Phone: [facility] 12-12-2021 13:05-0400 Body height 177.8 cm [facility] [employer] Work Phone: [facility] 12-12-2021 13:05-0400 Body weight 92.99 kg [facility] [employer] Work Phone: [facility] 12-12-2021 13:05-0400 Diastolic blood pressure 62 mm[Hg] [facility] [employer] Work Phone: [facility] 12-12-2021 13:05-0400 Systolic blood pressure 136 mm[Hg] [facility] [employer] Work Phone: [facility] 10-02-2021 14:02-0400 Diastolic blood pressure 59 mm[Hg] Jeff Montes De Oca MD Work Phone: [facility] 10-02-2021 14:02-0400 Heart rate 61 /min Jeff Montes De Oca MD Work Phone: [facility] 10-02-2021 14:02-0400 Respiratory rate 14 /min Jeff Montes De Oca MD Work Phone: [facility] 10-02-2021 14:02-0400 SaO2% (BldA) [Mass fraction] 95 % Jeff Montes De Oca MD Work Phone: [facility] 10-02-2021 14:02-0400 Systolic blood pressure 150 mm[Hg] Jeff Montes De Oca MD Work Phone: [facility] 10-02-2021 11:59-0400 Body height 177.8 cm Jeff Montes De Oca MD Work Phone: [facility] 10-02-2021 11:59-0400 Body mass index (BMI) [Ratio] 30.13 kg/m2 Jeff Montes De Oca MD Work Phone: [facility] 10-02-2021 11:59-0400 Body temperature 98.2 [degF] Jeff Montes De Oca MD Work Phone: [facility] 10-02-2021 11:59-0400 Body weight 95.25 kg Jeff Montes De Oca MD Work Phone: [facility] 09-25-2021 10:41-0400 Diastolic blood pressure 52 mm[Hg] Zaida Montejo MD Work Phone: [facility] 09-25-2021 10:41-0400 Heart rate 61 /min Zaida Montejo MD Work Phone: [facility] 09-25-2021 10:41-0400 Respiratory rate 18 /min Zaida Montejo MD Work Phone: [facility] 09-25-2021 10:41-0400 SaO2% (BldA) [Mass fraction] 93 % Zaida Montejo MD Work Phone: [facility] 09-25-2021 10:41-0400 Systolic blood pressure 115 mm[Hg] Zaida Montejo MD Work Phone: [facility] 09-25-2021 03:51-0400 Body height 177.8 cm Zaida Montejo MD Work Phone: [facility] 09-25-2021 03:51-0400 Body mass index (BMI) [Ratio] 30.13 kg/m2 Zaida Montejo MD Work Phone: [facility] 09-25-2021 03:51-0400 Body temperature 98.4 [degF] Zaida Montejo MD Work Phone: [facility] 09-25-2021 03:51-0400 Body weight 95.25 kg Zaida Montejo MD Work Phone: [facility] 08-14-2021 14:27-0400 Body height 177.8 cm Mary Gonzalez MD Work Phone: [facility] 08-14-2021 14:27-0400 Body weight 92.99 kg Mary Gonzalez MD Work Phone: [facility] NEGATED: Highlighted [id number] 13:52-0400 BMI (Body Mass Index) 29.38 kg/m2 Ginger Arteaga AT [facility] Work Phone: NEGATED: Highlighted [id number] 13:52-0400 Body weight 92.53 kg Ginger Arteaga AT [facility] Work Phone: NEGATED: Highlighted [id number] 13:52-0400 Body weight 93 kg Ginger Arteaga AT [facility] Work Phone: NEGATED: Highlighted [id number] 13:52-0400 Heart rate 2+ Ginger Arteaga AT [facility] Work Phone: NEGATED: Highlighted [id number] 13:52-0400 Height 177.8 cm Ginger Arteaga AT [facility] Work Phone: NEGATED: Highlighted [id number] 13:52-0400 Height 178 cm Ginger Arteaga AT [facility] Work Phone: Encounters Encounter Date Encounter Type Care Provider Facility Start: 01-17-2025 End: 01-17-2025 Emergency department patient visit Nivia Bronw MD Work Phone: [facility] Comment on above: Strain of neck muscl e, initial encounter (Primary Dx) Start: 12-07-2024 End: 12-07-2024 Subsequent hospital visit by physician Terry Randle DPM Work Phone: [facility] Comment on above: Sprain of unspecifie d ligament of left ankle, initial encounter; Stress fracture of ankle, initial encounter Start: 12-07-2024 End: 12-07-2024 ambulatory TERRY RANDLE [facility] Start: 11-17-2024 End: 11-17-2024 Orders Only Christelle Segura PA-C Work Phone: [phone] [place] [address] [facility] [place] Comment on above: Left foot pain (Prim yesika Dx) Start: 11-16-2024 End: 11-16-2024 Emergency department patient visit Arpan Sun DO Work Phone: [facility] Comment on above: Left foot pain (Prim yesika Dx) Start: 11-15-2024 End: 11-16-2024 Emergency department patient visit Dr. Jermaine Church DO Work Phone: -Emergency Department Work Phone: Start: 09-23-2024 End: 09-23-2024 Patient encounter procedure Mary Gonzalez MD Work Phone: Urology Comment on above: Nocturia (Primary Dx ); History of prostate cancer; Rising PSA following treatment for malignant neoplasm of prostate Start: 09-23-2024 End: 09-23-2024 ambulatory MARY GONZALEZ Facility:[facility] Start: 09-05-2024 End: 09-05-2024 Emergency department patient visit Dr. Jermaine Church DO Work Phone: -Emergency Department Work Phone: Start: 09-03-2024 End: 09-03-2024 Emergency department patient visit Dr. Jermaine Church DO Work Phone: -Emergency Department Work Phone: Start: 08-18-2024 End: 08-18-2024 Office outpatient visit 25 minutes Rafael Moncada APRN.SPRAY PAINTING MACHINE OPERATOR, DNP Work Phone: Urology Comment on above: Nocturia (Primary Dx ); History of prostate cancer Start: 08-18-2024 End: 08-18-2024 ambulatory RAFAEL MONCADA Facility:[facility] Start: 08-05-2024 End: 08-08-2024 Evaluation and management of inpatient Jimmy Kulkarni DDS Work Phone: [facility] [place] [facility] Comment on above: Fracture of unspecif ied part of body of left mandible, initial encounter for closed fracture (Multi) (Primary Dx) Start: 08-03-2024 End: 08-03-2024 ambulatory SHIRA Aguayo [facility] Start: 08-03-2024 End: 08-03-2024 Encounter for preprocedural cardiovascular examination SHIRA Aguayo [facility] Start: 08-03-2024 End: 08-03-2024 Subsequent hospital visit by physician Zeynep [id number] [facility] Comment on above: Closed fracture of r ight side of mandibular body, initial encounter (Multi) Start: 08-03-2024 End: 08-03-2024 ambulatory [facility] Start: 08-02-2024 ambulatory [facility] Start: 06-14-2024 End: 06-14-2024 Subsequent hospital visit by physician [facility] Exam Room 1 [facility] Comment on above: Arrived Start: 06-14-2024 End: 06-14-2024 Emergency department patient visit Arpan Sun DO Work Phone: [facility] Comment on above: Fall, initial encoun ter (Primary Dx); Closed fracture of maxillary sinus, initial encounter (HCC) Start: 03-11-2024 End: 03-11-2024 Patient encounter procedure Mary oGnzalez MD Work Phone: Urology Comment on above: Prostate cancer (HCC ) (Primary Dx); Rising PSA following treatment for malignant neoplasm of prostate; Nocturia Start: 03-11-2024 End: 03-11-2024 ambulatory MARY GONZALEZ Facility:[facility] Start: 09-06-2023 Orders Only Mary Gonzalez MD [...] visit by physician [facility] [place] Work Phone: [facility] [place] Comment on above: Prostate cancer (HCC ) [C61] Start: 08-21-2023 End: 08-21-2023 Office outpatient visit 25 minutes Suzan Luciomeño SHAHN - SPRAY PAINTING MACHINE OPERATOR Work Phone: [facility] Comment on above: Cervico-occipital ne uralgia (Primary Dx); Vertigo; New daily persistent headache Start: 08-13-2023 End: 08-13-2023 Subsequent hospital visit by physician Marcos Newsome MD Work Phone: [facility] Comment on above: Vertebral artery ins ufficiency Start: 08-03-2023 Refill Marcos Newsome MD Work Phone: [facility] Start: 07-29-2023 End: 07-29-2023 Patient encounter procedure Mary Gonzalez MD Work Phone: Urology Comment on above: Prostate cancer (HCC ) (Primary Dx); Rising PSA following treatment for malignant neoplasm of prostate; Nocturia Start: 07-12-2023 End: 07-12-2023 Subsequent hospital visit by physician Marcos Newsome MD Work Phone: [facility] Comment on above: Cervico-occipital ne uralgia Start: 07-12-2023 End: 07-12-2023 Office outpatient new 45 minutes Marcos Newsome MD Work Phone: [facility] Comment on above: Vertebral artery ins ufficiency (Primary Dx); Cervico-occipital neuralgia; New daily persistent headache Start: 12-17-2022 End: 12-17-2022 Patient encounter procedure Mary Gonzalez MD Work Phone: Urology Comment on above: Prostate cancer (HCC ) (Primary Dx); Rising PSA following treatment for malignant neoplasm of prostate; Nocturia Start: 12-15-2022 End: 12-15-2022 Emergency department patient visit Dr. Jermaine Church Work Phone: [facility]-Emergency Department Work Phone: Start: 10-17-2022 End: 10-17-[address] Jermaine Church Work Phone: [facility] Work Phone: Start: 09-17-2022 End: 09-17-[address] Jermaine Church Work Phone: [facility] Start: 09-06-2022 Non-patient / Non-visit Dr. Mini Church Work Phone: [facility] Start: 09-06-2022 End: 09-19-2022 Evaluation and management of inpatient Dr. Jermaine Church Work Phone: [facility]-Transitional Care Unit Start: 09-06-2022 Non-patient / Non-visit Dr. Mini Church Work Phone: [facility] Start: 09-05-2022 Non-patient / Non-[facility] Start: 09-05-2022 Non-patient / Non-visit Dr. Mini Church Work Phone: [facility] Start: 09-04-2022 Non-patient / Non-visit Dr. Mini Church Work Phone: [facility] Start: 09-04-2022 Non-patient / Non-visit Dr. Mini Church Work Phone: [facility] Start: 09-04-2022 End: 09-06-2022 Evaluation and management of [facility] Start: 08-21-2022 End: 08-21-[address] Jermaine Church Work Phone[facility] Start: 07-27-2022 End: 07-27-2022 Patient encounter procedure Radha Middleton MD Work Phone: [facility] Comment on above: Visit for suture rem oval (Primary Dx) Start: 07-17-2022 End: 07-17-2022 Office outpatient visit 25 minutes Nickolas Sotobridget Work Phone: [facility] Comment on above: Laceration of right thumb without foreign body without damage to nail, initial encounter (Primary Dx); Laceration of right index finger without foreign body without damage to nail, initial encounter Start: 07-13-2022 End: 07-13-[address] Jermaine Church Work Phone: [facility] Start: 07-11-2022 End: 07-11-[address] Jermaine Church Work Phone: [facility] Start: 06-18-2022 End: 06-18-2022 Patient encounter procedure Mary Gonzalez MD Work Phone: Urology Comment on above: Prostate cancer (HCC ) (Primary Dx); Rising PSA following treatment for malignant neoplasm of prostate; Nocturia Start: 06-06-2022 End: 06-06-2022 ambulatory [facility] Work Phone: Start: 06-06-2022 End: 06-06-2022 Patient encounter procedure [facility]-MRI - [facility] Start: 04-19-2022 End: 04-19-2022 ambulatory [facility] Work Phone: Start: 04-19-2022 End: 04-19-2022 Patient encounter procedure [facility]-Radiology, [facility] Start: 02-15-2022 Refill Mary Gonzalez MD Work Phone: [facility] Comment on above: Refill Request Start: 02-12-2022 End: 02-12-2022 ambulatory [facility] Work Phone: Start: 02-12-2022 End: 02-12-2022 Patient encounter procedure [facility]-Radiology, [facility] Start: 02-01-2022 Refill Mary Gonzalez MD Work Phone: Urology Comment on above: Refill Request; Refi ll Request Start: 01-29-2022 Telephone encounter Mary grant MD Work Phone: [facility] Comment on above: Medication Problem Start: 01-23-2022 Telephone encounter Mary grant MD Work Phone: [facility] Comment on above: Patient Question Start: 12-12-2021 End: 12-12-2021 Nursing evaluation of patient and report Nurse [facility] Work Phone: Urology Comment on above: Prostate cancer (HCC ) (Primary Dx) Start: 11-06-2021 Refill Mary Gonzalez MD Work Phone: Urology Comment on above: Refill Request Start: 10-04-2021 Telephone encounter Mary grant MD Work Phone: [facility] Comment on above: Medication Problem; Medication Question Start: 10-02-2021 End: 10-02-2021 Emergency department patient visit Jeff Montes De Oca MD Work Phone: [facility] Comment on above: DVT of axillary vein , acute right (HCC) (Primary Dx) Start: 09-25-2021 End: 09-25-2021 Emergency department patient visit Zaida Montejo MD Work Phone: [facility] Comment on above: Right upper quadrant abdominal [...] Patient encounter procedure Mary Gonzalez Work Phone: [facility] Start: 07-12-2020 Results Only Mary Gonzalez Work Phone: Urology Start: 06-29-2020 End: 06-29-2020 Subsequent hospital visit by physician Jermaine Church Work Phone: [facility] Start: 02-22-2020 End: 02-22-2020 Patient encounter procedure Mary Gonzalez Work Phone: [facility] Start: 02-22-2020 Results Only Mary Gonzalez Work Phone: Urology Start: 12-03-2019 End: 12-04-2019 Patient encounter procedure Nelly Shah SILK SCREEN PRINTER-SPRAY PAINTING MACHINE OPERATOR Work Phone: [facility] Work Phone: Start: 12-03-2019 End: 12-03-2019 Pt evaluation Nelly Shah SILK SCREEN PRINTER-SPRAY PAINTING MACHINE OPERATOR Work Phone: [facility] Work Phone: Start: 11-02-2019 End: 11-02-2019 Subsequent hospital visit by physician Jermaine Church Work Phone: [facility] Start: 12-02-2007 End: 12-02-2007 Patient encounter procedure Mary Gonzalez Work Phone: [facility] Start: 12-02-2007 Results Only Mary Gonzalez Work Phone: [facility] Start: 06-22-2002 End: 06-22-2002 Patient encounter procedure Galen Hager Work Phone: [facility] Start: 06-22-2002 Results Only Galen fields Work Phone: [facility] Procedures Date Procedure Procedure Detail Performing Clinician Start: 11-16-2024 End: 11-16-2024 Radiologic examination tibia & fibula 2 views Arpan Morseya DO Work Phone: Start: 09-05-2024 CT cervical spine wi thout contrast Dr. Jermaine Church DO Work Phone: Start: 09-05-[address] Jermaine Church DO Work Phone: Start: 09-05-2024 CT of head without contrast Dr. Jermaine Church DO Work Phone: Start: 09-03-2024 Urnls dip stick/tabl et reagent auto microscopy Dr. Jermaine Church DO Work Phone: Start: 09-03-2024 Computed tomography of abdomen and pelvis with intravenous contrast Dr. Jermaine Church DO Work Phone: Start: 09-03-[address] Jermaine Church DO Work Phone: Start: 08-18-2024 Urnls dip stick/tabl et rgnt auto w/o microscopy Rafael Moncada SILK SCREEN PRINTER.SPRAY PAINTING MACHINE OPERATOR, DNP Work Phone: Start: 08-07-2024 Culture bacterial bl ood aerobic w/id isolates Lizz Chaidez DDS Work Phone: Start: 08-06-2024 Basic metabolic pane l calcium total Mauri Martinez DMD Work Phone: Start: 08-05-2024 Orthopantogram Mauri patricia DMD Work Phone: Start: 08-05-2024 PULSE OXIMETRY, CONTINUOUS Darnell H Teresache DO Work Phone: Start: 08-05-2024 Culture fngi [...] 10-02-2021 Basic metabolic pane l calcium total Jeff Montes De Oca MD Work Phone: Start: 10-02-2021 Dup-scan xtr veins unilateral/limited study Jeff Montes De Oca MD Work Phone: Start: [...] spine cervical 6 or more views Jermaine Church Work Phone: Start: 02-23-2020 [object Object] Mary Br eaux Start: 02-22-2020 PSA SCREEN Mary F Flores aux Work Phone: Start: 02-22-2020 Testosterone [Mass/Vol] Mary F Lisa Work Phone: Start: 12-03-2019 End: 12-04-2019 Blood pressure screening not performed - reason not given Nelly Shah SILK SCREEN PRINTER-SPRAY PAINTING MACHINE OPERATOR Work Phone: Start: 12-03-2019 End: 12-04-2019 BMI documented as above normal parameters - follow-up documented Nelly Shah SILK SCREEN PRINTER-SPRAY PAINTING MACHINE OPERATOR Work Phone: Start: 12-03-2019 End: 12-04-2019 Documentation of current medications Nelly Shah SILK SCREEN PRINTER-SPRAY PAINTING MACHINE OPERATOR Work Phone: Start: 12-03-2019 End: 12-04-2019 Pain assessment documented as positive - follow-up documented Nelly Shah SILK SCREEN PRINTER-SPRAY PAINTING MACHINE OPERATOR Work Phone: Start: 12-03-2019 End: 12-04-2019 Tobacco non-user Nelly Shah SILK SCREEN PRINTER-SPRAY PAINTING MACHINE OPERATOR Work Phone: Start: 11-02-2019 Radex spine lumbscrl [...] DTaP/Tdap/Td Vaccines (2 - Td or Tdap) [facility] [employer] Start: 07-18-2032 Urine microalbumin profile DTaP,Tdap,Td Vaccine (2 - Td or Tdap) [facility] Start: 08-07-2027 Diabetes Screening Diabetes Screenin g [facility] Start: 04-05-2025 End: 04-05-2025 Patient encounter procedure 04/05/2025 1:00 PM EST Office Visit Urology [address] [place] [address] Mary Gonzalez MD [address] [place] [address] 6 month follow up psa & test prior Urology Comment on above: 6 month follow up ps a & test prior Start: 03-22-2025 End: 06-21-2025 Prostate specific Ag [Mass/volume] in Serum or Plasma PROSTATE-SPECIFIC ANTIGEN DIAGNOSTIC Lab Routine Nocturia History of prostate cancer Rising PSA following treatment for malignant neoplasm of prostate Expected: 03/22/2025 (Approximate), Expires: 06/21/2025 [facility] Work Phone: Comment on above: Expected: 03/22/2025 (Approximate), Expires: 06/21/2025 Start: 03-22-2025 End: 06-21-2025 Testosterone [Mass/volume] in Serum or Plasma TESTOSTERONE, TOTAL BY IMMUNOASSAY (ADULT MALES, OR INDIVIDUALS ON TESTOSTERONE THERAPY) Lab Routine Nocturia History of prostate cancer Rising PSA following treatment for malignant neoplasm of prostate Expected: 03/22/2025 (Approximate), Expires: 06/21/2025 [facility] Comment on above: Expected: 03/22/2025 (Approximate), Expires: 06/21/2025 Start: 01-18-2025 Influenza vaccination Influenza Vacc ine (#1) [facility] Start: 12-09-2024 End: 11-17-2025 XR Foot - left 3 Views XR foot 3+ views left Imaging Routine Left foot pain Expected: 12/09/2024, Expires: 11/17/2025 [facility] Work Phone: Comment on above: Expected: 12/09/2024 , Expires: 11/17/2025 Start: 12-09-2024 End: 12-09-2024 Patient encounter procedure 12/09/2024 9:30 AM EDT Office Visit [facility] [address] [place] [phone] Patrick Cleaning MD [address] [place] [address] [facility] Start: 10-02-2024 Diabetes Screening Diabetes Screenin g [facility] Start: 09-23-2024 End: 09-23-2024 Patient encounter procedure 09/23/2024 1:45 PM EDT Office Visit Urology [address] [place] [address] Mary Gonzalez MD [address] [place] [address] 6 month follow up blood work prior Urology Comment on above: 6 month follow up bl ood work prior Start: 09-07-2024 End: 12-07-2024 Prostate specific Ag [Mass/volume] in Serum or Plasma PROSTATE-SPECIFIC ANTIGEN DIAGNOSTIC Lab Routine Prostate cancer (HCC) Rising PSA following treatment for malignant neoplasm of prostate Expected: 09/07/2024 (Approximate), Expires: 12/07/2024 [facility] Work Phone: Comment on above: Expected: 09/07/2024 (Approximate), Expires: 12/07/2024 Start: 09-07-2024 End: 12-07-2024 Testosterone [Mass/volume] in Serum or Plasma TESTOSTERONE, TOTAL Lab Routine Prostate cancer (HCC) Rising PSA following treatment for malignant neoplasm of prostate Expected: 09/07/2024 (Approximate), Expires: 12/07/2024 [facility] Comment on above: Expected: 09/07/2024 (Approximate), Expires: 12/07/2024 Start: 09-05-2024 [facility] Start: 08-05-2024 End: 08-05-2024 Admission to same day surgery center 08/05/2024 9:40 AM EDT - 08/05/2024 12:40 PM EDT Surgery [facility] [place] [address] [place] [address] Jimmy Kulkarni, DDS [address] [place] [address] ORIF, FRACTURE, MANDIBLE [83347 (CPT )] [facility] [place] Comment on above: ORIF, FRACTURE, MELANIE IBLE [82337 (CPT )] Start: 08-05-2024 End: 08-05-2024 Open tx mandibular fx w/interdental fixation ORIF, FRACTURE, MANDIBLE Fracture of unspecified part of body of left mandible, initial encounter for closed fracture (Multi) 08/05/2024 9:40 AM EDT [facility] [place] Start: 08-05-2024 Subsequent hospital visit by physician 08/05/2024 8:10 AM EDT Hospital Encounter [facility] [place] [address] [place] [address] Jimmy Kulkarni DDS [address] [place] [address] [facility] [place] Start: 07-26-2024 Covid-19 Vaccine () Covid-19 Vaccine () [facility] Start: 05-20-2024 Advance Directive Discussion Advance Directive Discussion [facility] Start: 03-03-2024 End: 06-02-2024 Prostate specific Ag [Mass/volume] in Serum or Plasma PROSTATE-SPECIFIC ANTIGEN DIAGNOSTIC Lab Routine Prostate cancer (HCC) Rising PSA following treatment for malignant neoplasm of prostate Nocturia Expected: 03/03/2024 (Approximate), Expires: 06/02/2024 [facility] Work Phone: Comment on above: Expected: 03/03/2024 (Approximate), Expires: 06/02/2024 Start: 03-03-2024 End: 06-02-2024 Testosterone [Mass/volume] in Serum or Plasma TESTOSTERONE, TOTAL Lab Routine Prostate cancer (HCC) Rising PSA following treatment for malignant neoplasm of prostate Nocturia Expected: 03/03/2024 (Approximate), Expires: 06/02/2024 [facility] Work Phone: Comment on above: Expected: 03/03/2024 (Approximate), Expires: 06/02/2024 Start: 01-19-2024 COVID-19 Vaccine ( season) COVID-19 Vaccine () [facility] [employer] Start: 01-19-[address] [facility] Start: 11-25-2023 End: 11-25-2023 Patient encounter procedure 11/25/2023 10:30 AM EDT Office Visit [facility] [employer] [facility] [address] [place] [address] Suzan Teixeira, SILK SCREEN PRINTER - SPRAY PAINTING MACHINE OPERATOR [address] [place] [address] [facility] Start: 09-05-2023 End: 12-05-2023 Prostate specific Ag [Mass/volume] in Serum or Plasma PROSTATE-SPECIFIC ANTIGEN DIAGNOSTIC Lab Routine Prostate cancer (HCC) Rising PSA following treatment for malignant neoplasm of prostate Nocturia Expected: 09/05/2023, Expires: 12/05/2023 [facility] Work Phone: Comment on above: Expected: 09/05/2023 , Expires: 12/05/2023 Start: 09-05-2023 End: 12-05-2023 Testosterone [Mass/volume] in Serum or Plasma TESTOSTERONE, TOTAL Lab Routine Prostate cancer (HCC) Rising PSA following treatment for malignant neoplasm of prostate Nocturia Expected: 09/05/2023, Expires: 12/05/2023 [facility] Work Phone: Comment on above: Expected: 09/05/2023 , Expires: 12/05/2023 Start: 08-21-2023 End: 08-21-2023 Patient encounter procedure 08/21/2023 10:30 AM EDT Office Visit [facility] [address] [place] [phone] Suzan Teixeira APRN - CNP [address] [place] [address] [facility] Start: 08-13-2023 Subsequent hospital visit by physician 08/13/2023 2:45 PM EDT Hospital Encounter [facility] [address] [place] [phone] Marcos Newsome MD [address] [place] [address] [facility] [address] Start: 08-09-2023 End: 08-09-2023 Patient encounter procedure 08/09/2023 9:30 AM EDT Office Visit [facility] [address] [place] [address] Suzan Teixeira, SILK SCREEN PRINTER - SPRAY PAINTING MACHINE OPERATOR [address] [place] [address] [facility] Start: 07-29-2023 End: 08-28-2024 PET+CT Guidance for localization of tumor of Whole body-- W [id number] IV NM PET/CT PROSTATE WHOLE BODY IMAGING Radiology Routine Prostate cancer (HCC) Rising PSA following treatment for malignant neoplasm of prostate Nocturia Expected: 07/29/2023, Expires: 08/28/2024 [facility] Work Phone: Comment on above: Expected: 07/29/2023 , Expires: 08/28/2024 Start: 07-28-2023 End: 09-27-2023 Prostate specific Ag [Mass/volume] in Serum or Plasma PSA/PROSTSPECAG DIAG Lab Routine Prostate cancer (HCC) Rising PSA following treatment for malignant neoplasm of prostate Nocturia Expected: 07/28/2023 (Approximate), Expires: 09/27/2023 [facility] Work Phone: Comment on above: Expected: 07/28/2023 (Approximate), Expires: 09/27/2023 Start: 07-28-2023 End: 09-27-2023 Testosterone [Mass/volume] in Serum or Plasma TESTOSTERONE TOTAL Lab Routine Prostate cancer (HCC) Rising PSA following treatment for malignant neoplasm of prostate Nocturia Expected: 07/28/2023 (Approximate), Expires: 09/27/2023 [facility] Work Phone: Comment on above: Expected: 07/28/2023 (Approximate), Expires: 09/27/2023 Start: 07-12-2023 End: 07-12-2024 Creatinine [Mass/volume] in Serum or Plasma Creatinine, Serum Lab Routine Cervico-occipital neuralgia Expected: 07/12/2023 (Approximate), Expires: 07/12/2024 [facility] Comment on above: Expected: 07/12/2023 (Approximate), Expires: 07/12/2024 Start: 07-12-2023 End: 07-12-2024 CTA Head vessels and Neck vessels WO and W contrast IV CTA head neck angio w and wo IV contrast Imaging Routine Vertebral artery insufficiency Expected: 07/12/2023, Expires: 07/12/2024 [facility] [employer] Work Phone: Comment on above: Expected: 07/12/2023 , Expires: 07/12/2024 Start: 07-12-2023 End: 07-12-2024 XR Cervical spine 4 or 5 Views [facility] [employer] Comment on above: Expected: 07/12/2023 , Expires: 07/12/2024 Once for 1 Occurrenc es starting 07/12/2023 until 07/12/2023 Start: 05-20-2023 Advance Directive Discussion Advance Directive Discussion [facility] Start: 05-20-2023 Behavioral Health Screening Behavioral Health Screening [facility] Start: 05-20-2023 Depression Assessment Depression Ass essment [facility] Start: 04-16-2023 End: 06-16-2023 Prostate specific Ag [Mass/volume] in Serum or Plasma PSA/PROSTSPECAG DIAG Lab Routine Prostate cancer (HCC) Rising PSA following treatment for malignant neoplasm of prostate Nocturia Expected: 04/16/2023 (Approximate), Expires: 06/16/2023 [facility] Work Phone: Comment on above: Expected: 04/16/2023 (Approximate), Expires: 06/16/2023 Start: 04-16-2023 End: 06-16-2023 Testosterone [Mass/volume] in Serum or Plasma TESTOSTERONE TOTAL Lab Routine Prostate cancer (HCC) Rising PSA following treatment for malignant neoplasm of prostate Nocturia Expected: 04/16/2023 (Approximate), Expires: 06/16/2023 [facility] Work Phone: Comment on above: Expected: 04/16/2023 (Approximate), Expires: 06/16/2023 Start: 01-18-2023 COVID-19 Vaccine () COVID-19 Vaccine () [facility] Start: 01-18-2023 Influenza vaccination [facility] Start: 12-15-2022 End: 02-14-2023 Prostate specific Ag [Mass/volume] in Serum or Plasma PSA/PROSTSPECAG DIAG Lab Routine Prostate cancer (HCC) Rising PSA following treatment for malignant neoplasm of prostate Nocturia Expected: 12/15/2022 (Approximate), Expires: 02/14/2023 [facility] Work Phone: Comment on above: Expected: 12/15/2022 (Approximate), Expires: 02/14/2023 Start: 12-15-2022 End: 02-14-2023 Testosterone [Mass/volume] in Serum or Plasma TESTOSTERONE TOTAL Lab Routine Prostate cancer (HCC) Rising PSA following treatment for malignant neoplasm of prostate Nocturia Expected: 12/15/2022 (Approximate), Expires: 02/14/2023 [facility] Work Phone: Comment on above: Expected: 12/15/2022 (Approximate), Expires: 02/14/2023 Start: 10-12-2022 Blood chemistry [facility] Start: 10-05-2022 Blood chemistry [facility] Start: 09-28-2022 Blood chemistry [facility] Start: 09-19-2022 Patient discharge [facility] Start: 09-18-2022 Development of care plan [facility] Start: 09-13-2022 [facility] Start: 09-12-2022 [facility] Start: 09-07-2022 Development of care plan [facility] Start: 09-07-2022 Developing a treatme nt plan [facility] Start: 09-07-2022 Application of device W [facility] Start: 09-06-[address] anned interventions [facility] Start: 09-06-2022 Recommendation to continue with treatment [facility] Start: 09-06-2022 Wound care [facility] Start: 09-06-2022 Admission procedure [facility] Start: 09-06-2022 Measuring intake and output [facility] Start: 09-06-2022 Patient referral to dietitian [facility] Start: 09-06-2022 Referral to occupati onal therapist [facility] Start: 09-06-2022 Referral to service [facility] Start: 09-06-2022 Vital signs measurements [facility] Start: 09-06-2022 [facility] Start: 09-06-2022 Patient discharge [facility] Start: 09-06-2022 Referral to occupati onal therapist [facility] Start: 09-06-2022 Referral to service [facility] Start: 09-04-2022 Following clinical pathway protocol [facility] Start: 09-04-2022 Oxygen therapy [facility] Start: 09-04-2022 Admission procedure [facility] Start: 09-04-2022 Consultation [facility] Start: 09-04-2022 Recommendation to continue with treatment [facility] Start: 09-04-2022 Provision of overbed trapeze [facility] Start: 09-04-2022 Ambulation therapy management [facility] Start: 09-04-2022 Application of device W [facility] Start: 09-04-2022 Assessment of risk o f venous thromboembolism [facility] Start: 09-04-2022 Catheterization of vein [facility] Start: 09-04-2022 Exercises [facility] Start: 09-04-2022 Following clinical pathway protocol [facility] Start: 09-04-2022 Incentive spirometry [facility] Start: 09-04-2022 Introduction of urin yesika catheter [facility] Start: 09-04-2022 Measuring intake and output [facility] Start: 09-04-2022 Neurovascular assessment [facility] Start: 09-04-2022 Patient education [facility] Start: 09-04-2022 Procedure discontinued [facility] Start: 09-04-2022 Provision of activit y privileges [facility] Start: 09-04-2022 Referral to occupati onal therapist [facility] Start: 09-04-2022 End: 09-04-2022 Referral to service [facility] Start: 09-04-2022 Vital signs measurements [facility] Start: 09-04-2022 Wound care [facility] Start: 09-04-2022 End: 09-04-2022 [facility] Start: 07-17-2022 End: 07-17-2023 Laceration repair of hands, feet, genit Laceration repair of hands, feet, genit Procedures Routine Laceration of right thumb without foreign body without damage to nail, initial encounter Laceration of right index finger without foreign body without damage to nail, initial encounter Expected: 07/17/2022 (Approximate), Expires: 07/17/2023 [facility] Work Phone: Comment on above: Expected: 07/17/2022 (Approximate), Expires: 07/17/2023 Start: 06-18-2022 End: 08-18-2022 Prostate specific Ag [Mass/volume] in Serum or Plasma [facility] Work Phone: Comment on above: Expected: 06/18/2022 , Expires: 08/18/2022 Start: 06-18-2022 End: 08-18-2022 Testosterone [Mass/volume] in Serum or Plasma [facility] Work Phone: Comment on above: Expected: 06/18/2022 , Expires: 08/18/2022 Start: 06-01-2022 COVID-19 VACCINE (5 - Moderna series) COVID-19 VACCINE (5 - Moderna series) [facility] Start: 05-20-2022 ADVANCE DIRECTIVE DISCUSSION ADVANCE DIRECTIVE DISCUSSION [facility] Start: 05-20-2022 DEPRESSION ASSESSMENT DEPRESSION ASS ESSMENT [facility] Start: 02-10-2022 End: 04-12-2022 Prostate specific Ag [Mass/volume] in Serum or Plasma PSA/PROSTSPECAG DIAG Lab Routine Prostate cancer (HCC) Rising PSA following treatment for malignant neoplasm of prostate Nocturia Expected: 02/10/2022 (Approximate), Expires: 04/12/2022 [facility] Work Phone: Comment on above: Expected: 02/10/2022 (Approximate), Expires: 04/12/2022 Start: 02-10-2022 End: 04-12-2022 Testosterone [Mass/volume] in Serum or Plasma TESTOSTERONE TOTAL Lab Routine Prostate cancer (HCC) Rising PSA following treatment for malignant neoplasm of prostate Nocturia Expected: 02/10/2022 (Approximate), Expires: 04/12/2022 [facility] Work Phone: Comment on above: Expected: 02/10/2022 (Approximate), Expires: 04/12/2022 Start: 01-18-2022 DIABETES SCREEN DIABETES SCREEN [facility] Start: 01-18-2022 Influenza vaccination INFLUENZA (#1) [facility] Start: 07-14-2021 COVID-19 VACCINE (4 - Booster for Moderna series) COVID-19 VACCINE (4 - Booster for Moderna series) [facility] Start: 05-20-2021 ADVANCE DIRECTIVE DISCUSSION ADVANCE DIRECTIVE DISCUSSION [facility] Start: 05-20-2021 DEPRESSION ASSESSMENT DEPRESSION ASS ESSMENT [facility] Start: 05-08-2021 COVID-19 VACCINE (4 - Booster for Moderna series) COVID-19 VACCINE (4 - Booster for Moderna series) [facility] Start: 01-10-2021 COVID-19 Vaccine (3 - Booster for Moderna series) COVID-19 Vaccine (3 - Booster for Moderna series) [facility] Start: 2020 RSV Immunization for Adults (1 - 1-dose 75+ series) RSV Immunization for Adults (1 - 1-dose 75+ series) [facility] Start: 01-19-2020 Influenza vaccination C [facility] Start: 2010 ADVANCE DIRECTIVE DISCUSSION ADVANCE DIRECTIVE DISCUSSION [facility] Start: 2010 Pneumococcal 65+ yea rs Vaccine (1 of 1 - PPSV23) Pneumococcal 65+ years Vaccine (1 of 1 - PPSV23) [place] Start: 2010 Pneumococcal Vaccine : 65+ Years (1 - PCV) Pneumococcal Vaccine: 65+ Years (1 - PCV) [facility] Start: 2010 PNEUMOCOCCAL: 65+ (1 - PCV) PNEUMOCOCCAL: 65+ (1 - PCV) [facility] Start: 2010 PNEUMOVAX AGE 65 AND OVER WITH 5YR LOOKBACK (#1) PNEUMOVAX AGE 65 AND OVER WITH 5YR LOOKBACK (#1) [facility] Start: 2005 RSV Immunization age d 60 or older (1 - 1-dose 60+ series) RSV Immunization aged 60 or older (1 - 1-dose 60+ series) [facility] Start: 1995 Screening for malign ant neoplasm of colon [place], [place] Start: 1995 Shingles Vaccine (1 of 2) Jaramillo gles Vaccine (1 of 2) [facility], [place] Start: 1995 SHINGRIX VACCINE (1 of 2) JARAMILLO GRIX VACCINE (1 of 2) [facility] Start: 1995 Tuberculosis screening COLOREC RADHA CANCER SCREENING,SEE MODIFIER [facility] Start: 1985 Lipid panel Lipid screen [facility], [place] Start: 1980 LIPID SCREEN LIPID SCREEN [facility] Start: 1964 DTaP/Tdap/Td vaccine (1 - Tdap) DTaP/Tdap/Td vaccine (1 - Tdap) [facility] Start: 1964 SHINGRIX VACCINE (1 of 2) JARAMILLO GRIX VACCINE (1 of 2) [facility] Start: 1964 Urine microalbumin profile DTAP,TDAP,TD (1 - Tdap) [facility] Start: 1963 Anxiety Screening Anxiety Screening [facility] Start: 1963 Depression Screening Depression Scre ening [facility] Start: 1963 Diabetes mellitus screening Diabetes Screening [facility] Start: 1963 HEPATITIS C SCREENING HEPATITIS C SC REENING [facility] Start: 1963 Hepatitis C screening [facility] Start: 1961 COVID-19 Vaccine (1 of 2) COVI D-19 Vaccine (1 of 2) [facility] Work Phone: Start: 1957 Adult depression screening assessment DEPRESSION SCREENING [facility] Start: 1957 [facility]: 1957 Depression Screen Depression Screen [facility] Start: 1951 PNEUMOCOCCAL: 65+ (1 - PCV) PNEUMOCOCCAL: 65+ (1 - PCV) [facility] Start: 1945 Annual wellness visit Welcome to Medicare Visit [facility] Start: 1945 Hepatitis B Vaccines (1 of 3 - 3-dose series) Hepatitis B Vaccines (1 of 3 - 3-dose series) [facility] Start: 1945 Hepatitis C screening [facility], [place] Start: 1945 Lipid panel Lipid Panel [facility] Start: 1945 Medicare Annual Well ness (AWV) Medicare Annual Wellness (AWV) [facility] Bacteria identified in Blood by Culture Blood Culture Microbiology Pending Discharge 08/07/2024 7:05 AM EDT [facility] Work Phone: Bacteria identified in Unspecified specimen by Culture Tissue/Wound Culture/Smear Microbiology Routine Fracture of unspecified part of body of left mandible, initial encounter for closed fracture (Multi) 08/05/2024 11:28 AM EDT [facility] Work Phone: BLADDER SCAN BLADDER SCAN Procedures Routine Nocturia History of prostate cancer Ordered: 08/18/2024 [facility] Comment on above: Ordered: 08/18/2024 End: 12-07-2024 CT Ankle - left WO contrast [facility] Work Phone: Comment on above: Once for 1 Occurrenc es starting 12/07/2024 until 12/07/2024 End: 08-03-2024 CT Maxillofacial region WO contrast [facility] Service Area Work Phone: Comment on above: Once for 1 Occurrenc es starting 08/03/2024 until 08/03/2024 End: 08-13-2023 CTA Head vessels and Neck vessels WO and W contrast IV [employer] Work Phone: Comment on above: Once for 1 Occurrenc es starting 08/13/2023 until 08/13/2023 Fungus identified in Unspecified specimen by Culture Fungal Culture/Smear Microbiology Routine Fracture of unspecified part of body of left mandible, initial encounter for closed fracture (Multi) 08/05/2024 11:28 AM EDT [facility] Work Phone: OUTSIDE PROCEDURE SCAN OUTSIDE P ROCEDURE SCAN Procedures Ordered: 08/12/2023 [facility] Comment on above: Ordered: 08/12/2023 Patient Education [facility] Work Phone: Patient referral [facility] Work Phone: PET+CT Guidance for localization of tumor of Whole body-- W [id number] IV NM PET/CT PROSTATE WHOLE BODY IMAGING Radiology Routine Prostate cancer (HCC) Rising PSA following treatment for malignant neoplasm of prostate Nocturia 08/22/2023 1:53 PM EDT [facility] Work Phone: End: 08-05-2024 Pulse oximetry, continuous Pulse oximetry, continuous Respiratory Care Routine Continuous until discontinued starting 08/05/2024 [facility] Work Phone: Comment on above: Continuous until dis continued starting 08/05/2024 Surgical pathology study [facility] Service Area Work Phone: Comment on above: Release Upon Orderin g for 1 Occurrences starting 08/05/2024, 1 completed UA DIP B/O UA DIP B/O Lab R outine Nocturia History of prostate cancer Ordered: 08/18/2024 [facility] Work Phone: Comment on above: Ordered: 08/18/2024 [facility] Immunizations Immunization Date Immunization Notes Care Provider [facility] 01-27-2024 influenza virus vacc ine, unspecified formulation Christelle Segura PA-C Work Phone: [facility] 07-18-2022 tetanus toxoid, redu brennan diphtheria toxoid, and acellular pertussis vaccine, adsorbed Nickolas Ortiz DO Work Phone: [facility] 02-13-2022 Influenza, high dose seasonal Dr. Jermaine Church DO Work Phone: [facility] 02-13-2022 influenza, high dose seasonal, preservative-free Dr. Jermaine Church Work Phone: [facility] 02-13-2022 influenza virus vacc ine, unspecified formulation Marcos Newsome MD Work Phone: [facility] 01-30-2022 Covcaitlyn Moderna Bivale nt Booster; Translations: [Covid Moderna Bivalent Booster] Dr. Jermaine Church Work Phone: [facility] 03-13-2021 Covid (Moderna) Dr. Jermaine cummins Work Phone: [facility] 02-01-2021 Influenza, high dose seasonal Dr. Jermaine Church DO Work Phone: [facility] 02-01-2021 influenza, high dose seasonal, preservative-free Dr. Jermaine Church Work Phone: [facility] 08-10-2020 Covid (Moderna) Dr. Jermaine cummins Work Phone: [facility] 07-17-2020 Covid (Moderna) Dr. Jermaine cummins Work Phone: [facility] 02-11-2020 Influenza, high dose seasonal Dr. Jermaine Church DO Work Phone: [facility] 02-11-2020 influenza, high dose seasonal, preservative-free Dr. Jermaine Church Work Phone: [facility] 02-11-[address] Jermaine Church Work Phone: [facility] 03-16-[address] Jermaine Church Work Phone: [facility] 01-14-2019 influenza, injectabl e, quadrivalent, preservative free Dr. Jermaine Church DO Work Phone: [facility] 01-14-2019 influenza, seasonal, injectable Dr. Jermaine Church Work Phone: [facility] 02-27-2018 Influenza, high dose seasonal Dr. Jermaine Church DO Work Phone: [facility] 02-27-2018 influenza, high dose seasonal, preservative-free Dr. Jermaine Church Work Phone: [facility] 02-15-2018 Influenza, high dose seasonal Dr. Jermaine Church DO Work Phone: [facility] 02-15-2018 influenza, high dose seasonal, preservative-free Dr. Jermaine Church Work Phone: [facility] 03-08-2017 Influenza, high dose seasonal Dr. Jermaine Church DO Work Phone: [facility] 03-08-2017 influenza, high dose seasonal, preservative-free Dr. Jermaine Church Work Phone: [facility] 03-09-2016 Influenza, high dose seasonal Dr. Jermaine Church DO Work Phone: [facility] 03-09-2016 influenza, high dose seasonal, preservative-free Dr. Jermaine Church Work Phone: [facility] 03-03-2015 Influenza, high dose seasonal Dr. Jermaine Church DO Work Phone: [facility] 03-03-2015 influenza, high dose seasonal, preservative-free Dr. Jermaine Church Work Phone: [facility] 09-07-2014 pneumococcal conjuga te vaccine, [address] Jermaine Church Work Phone: [facility] 03-03-2012 pneumococcal polysaccharide vaccine, [address] Jermaine Church Work Phone: [facility] 02-25-2012 influenza, injectabl e, quadrivalent, preservative free Dr. Jermaine Church DO Work Phone: [facility] 02-25-2012 influenza, seasonal, injectable Dr. Jermaine Church Work Phone: [facility] 05-05-2009 novel influenza-H1N1 -09, preservative-free, injectable Dr. Jermaine Church Work Phone: [facility] Payers Date Payer Category Payer Self-pay 2021 Commercial Managed [facility] [id number] 2021 Unknown [employer] [facility] [id number] 2021-Present [address] [place] Commercial [id number] 2021 Unknown [id number] 2020 Private Health Insurance [employer] [facility] [id number] 2020-Present [phone] [address] [place] [address] Open Access [id number] 2015 Private Health Insurance [facility] xxxxxxxxx 2015-Present [phone] [address] [place] [address] xxxxxxxxx [id number] 2015 Private Health Insurance [id number] 2015 Private Health Insurance [id number] 2010 Medicare MEDICARE MEDICAR E A [id number] 2010-Present [place], [place] Medicare [id number] 2010 Medicare [id number] 2010 Medicare [id number] 1945 Unknown [id number] 1945 Unknown [id number] 1945 Unknown [id number] Private Health Insurance [id number] Unknown [facility] PACKAGE PLAN [id number] Unknown [id number] Unknown [id number] Unknown [id number] Social History Date Type Detail Facility Start: 11-04-2015 End: 03-11-2019 Tobacco smoking status [facility] Former smoker [facility] Start: 03-11-2019 End: 11-16-2024 Alcohol intake Lifetime non-drinker (finding) [place] Start: 03-11-2019 History SDOH Alcohol Frequency 1 [place] Start: 1945 Sex Assigned At Not on file [place] Start: 08-22-2022 End: 12-15-2022 Assertion Unknown if ever smoked [facility] Work Phone: Start: 06-19-2021 End: 08-05-2024 Exposure to SARS-CoV-2 (event) Not sure [facility] Start: 11-05-2019 End: 09-05-2024 Tobacco smoking status MTIS Never smoker [facility] Start: 11-05-2019 End: 06-18-2022 Tobacco use and exposure Never used [facility] Start: 11-05-2019 End: 09-23-2024 Alcohol intake Current drinker of alcohol (finding) [facility] Start: 10-28-2017 Alcohol Comment once monthly [facility] Start: 1945 Sex Assigned At Male [facility] Start: 12-17-2022 End: 11-16-2024 History of Social function [facility] Start: 12-17-2022 End: 11-16-2024 Tobacco use panel [facility] PHQ2 Score 0 [facility] History of tobacco use Current smoker [facility] [employer] How often to you hav e a drink containing alcohol? Never [facility] Start: 12-18-2021 End: 09-05-2024 Sex Male (finding) [facility] Start: 08-02-2024 Gender identity Identifies as male gender (finding) [facility] Work Phone: Start: 08-02-2024 Sexual orientation Heterosexual (finding) [facility] Work Phone: How hard is it for y ou to pay for the very basics like food, housing, medical care, and heating Not very hard [facility] In the past 12 month s, was there a time when you were not able to pay the mortgage or rent on time? No [facility] Work Phone: Medical Equipment Procedure Code Equipment Code Equipment Origin al Text Equipment Identifier Dates 10 degree poly insert FDA Start: 09-04-2022 ([id number]) Ceramic femoral head prosthesis [id number] FDA Start: 09-04-2022 ([id number]) Coated hip femur prosthesis, modular [id number] FDA Start: 09-04-2022 ([id number]) Acetabular shell [id number] FDA Start: 09-04-2022 ([id number]) Orthopaedic bone screw, non-bioabsorbable, sterile [id number] FDA Start: 09-04-2022 10 degree poly insert FDA Start: 09-04-2022 10 degree poly insert FDA Start: 09-04-2022 Screw, Mmf, 2.0m m X 12mm, 8mm Thr, Ss - [id number] Start: 08-05-2024 Screw, Mmf, 2.0m m X 16mm, 12mm Thr, Ss - [id number] Start: 08-05-2024 Plate, Threadloc k 3.0 6h Straight W/Bar Ts Melanie Recon - [id number] Start: 08-05-2024 Kls Screws - [id number] Start: 08-05-2024 Comment on above: Description: per ora jaycob jdr 08/06 [employer] [id number] Start: 08-05-2024 Comment on above: Description: per ora jaycob jdr 08/06 [employer] [id number] Start: 08-05-2024 Comment on above: Description: per ora jaycob jdr 08/06 [employer] [phone] [id number] Start: 08-05-2024 Comment on above: Description: per ora jaycob dr 08/06 10 degree poly insert FDA Start: 09-04-2022 10 degree poly insert FDA Start: 09-04-2022 10 degree poly insert FDA Start: 09-04-2022 Goals Date Patient Goal Desired Activity /State Functional Status Date Assessment Result Facility 11-16-2024 Total score [AUDIT-C] 0 11/17/19 25 7:07 PM EDT Emilia Sinha RN [facility] 09-19-2022 Functional status Ambulates;Up ad hossein [facility] Work Phone: 09-06-2022 Functional status [employer] [facility] Work Phone: 01-20-2019 Are you deaf, or do you have serious difficulty hearing No 01/20/2019 3:14 PM Chyna Menendez, RN [facility] 01-20-2019 Are you blind, or do you have serious difficulty seeing, even when wearing glasses No 01/20/2019 3:14 PM Chyna Menendez, YESSENIA No [facility] 01-20-2019 Do you have serious difficulty walking or climbing stairs No 01/20/2019 3:14 PM EDT Chyna Umana RN No [facility] 01-20-2019 Do you have difficul ty dressing or bathing No 01/20/2019 3:14 PM EDT Chyna Umana RN No [facility] 01-20-2019 Because of a physica l, mental, or emotional condition, do you have difficulty doing errands alone such as visiting a physician's office or shopping No 01/20/2019 3:14 PM EDT Chyna Umana RN No [facility] Mental Status Date Assessment Result Facility 09-19-2022 Cognitive function Voice/Name [facility] Work Phone: 09-06-2022 Cognitive function Voice/Name [facility] Work Phone: 01-20-2019 Because of a physica l, mental, or emotional condition, do you have serious difficulty concentrating, remembering, or making decisions No 01/20/2019 3:14 PM EDT Chyna Umana RN No [facility] Clinical Notes 08-14-2021 to 01-17-2025 Discharge InstructionsAttachMaggie Brown MD - 01/17/2025 1:57 AM Papito Brown MD - 01/17/2025 1:57 AM Guadalupe Pepe RN - 11/16/2024 8:45 PM Guadalupe Pepe RN - 11/16/2024 8:45 PM EDT Note Date & Type Note Facility 01-17-2025 Hospital Discharge instructions Nivia Brown MD - 01/17/2025 2:20 AM EDT Would recommend taking the lidocaine patch and Tylenol prior to going to bed. Try to sleep in a more upright position. The following attachments cannot be sent through Care Everywhere.Neck Pain (Trinidadian)documented in this encounter [facility] 01-17-2025 Emergency department Note EMERGENCY DEPARTMENT ENCOUNTER Pt Name: See Paris Birthdate 1945 Date of evaluation: 01/17/2025 ED Provider: Nivia Bronw MD CHIEF COMPLAINT Chief Complaint Patient presents with Neck Pain Posterior neck pain for past 3 nights, denies acute trauma. No urinary or bowel incontinence HISTORY OF PRESENT ILLNESS (Location/Symptom, Timing/Onset, Context/Setting, Quality, Duration, Modifying Factors, Severity) Note limiting factors. I wore appropriate PPE for the entirety of this encounter. HPI See Paris is a 79 y.o. who presents to the emergency department with neck pain. Patient states that for the last 3 nights he gets woken up from sleep after couple of hours with pain in the back of his posterior neck. States it is worse when he moves around. He took some Tylenol prior to coming in. States that the pain then resolves in the morning and throughout the day. He denies any numbness, weakness. Did state that he got a new mattress 2 weeks ago. Initially I had talked him about possibly the new mattress causing issues but then he states he has been having these issues for much longer and that is what led to getting the new mattress. However feels like the symptoms have been getting worse over the last couple of nights. Nursing Notes were reviewed. Limitations to history: None Outside historians: None REVIEW OF SYSTEMS Review of Systems Pertinent positives and negatives as per HPI. PAST MEDICAL HISTORY Medical History[1] SURGICAL HISTORY Surgical History[2] CURRENT MEDICATIONS Previous Medications AMITRIPTYLINE (ELAVIL) 10 MG TABLET Take 2 tablets (20 mg) by mouth every evening. TAKE 1 TAB BY MOUTH AT SUPPERTIME FOR 7 DAYS, THEN TAKE 2 TABS BY MOUTH SUPPERTIME THEREAFTER AMLODIPINE (NORVASC) 2.5 MG TABLET Take 2 mg by mouth daily. CALCIUM CARB-CHOLECALCIFEROL (CALCIUM/VITAMIN D PO) Take by mouth. CHOLECALCIFEROL (VITAMIN D3 PO) Take by mouth daily. DICLOFENAC SODIUM (VOLTAREN) 1 % GEL Apply 2 g topically 2 times daily. DOXAZOSIN (CARDURA) 2 MG TABLET Take 2 mg by mouth daily. MEGESTROL (MEGACE) 20 MG TABLET Take by mouth daily. OMEPRAZOLE (PRILOSEC) [address] CAPSULE Take 20 mg by mouth every morning (before breakfast). Do not crush or chew. RIVAROXABAN (XARELTO) 15 MG TABLET Take 1 tablet (15 mg) by mouth in the morning and 1 tablet (15 mg) before bedtime. Do all this for 21 days. ALLERGIES Oxycodone, Floxin otic [ofloxacin], Hydrocodone, Hydrocodone-acetaminophen, Morphine, and Percocet [oxycodone-acetaminophen] FAMILY HISTORY Family History[3] SOCIAL HISTORY Social History[4] SCREENINGS PHYSICAL EXAM ED Triage Vitals 01/17/25158 Temp Heart Rate Resp BP 36.4 C (97.6 F) 63 15 (!) 176/82 SpO2 Temp Source Heart Rate Source Patient Position 98 % Temporal Monitor -- BP Location FiO2 (%) -- -- Physical Exam Vital Signs: Reviewed Constitutional: No acute distress Head: Normocephalic, atraumatic Eyes: No scleral injection, no scleral icterus, no conjunctival erythema ENT: Oropharynx clear, MMM Neck: Supple, trachea midline, no midline cervical spine tenderness, step-offs, deformities, full range of motion of the neck, patient however does have reproducible pain with [id number] movement of the neck Cardiovascular: RRR, no m/r/g Pulmonary: No evidence of labored breathing, clear to auscultation bilaterally Extremities: Warm, well perfused, no edema Neurological: Alert and oriented x 3, motor 5 out of 5 in flexion and extension of bilateral upper extremities at the elbow, extension of the wrist and fingers, 5 out of 5 flexion of all fingers, intact abduction and abduction of all fingers, intact abduction and adduction of bilateral shoulders, sensation intact to bilateral upper extremities as well as neck and posterior scalp Skin: Warm, dry, no rash DIAGNOSTIC RESULTS RADIOLOGY (Per Emergency Physician): Interpretation per the Radiologist below, if available at the time of this note: No orders to display LABS: Labs Reviewed - No data to display All other labs were within normal range or not returned as of this dictation. EMERGENCY DEPARTMENT COURSE and DIFFERENTIAL DIAGNOSIS/MDM: Vitals: Vitals: 01/17/2515801/17/25158 BP: (!) 176/82 Pulse: 63 Resp: 15 Temp: 36.4 C (97.6 F) TempSrc: Temporal SpO2: 98% Weight: 90.7 kg (200 lb) Height: 1.778 m (5' 10) The patient presented with a chief complaint of neck pain. The differential diagnosis associated with this patient's presentation includes muscle spasm, arthritis, cord compression, epidural abscess, epidural hematoma. Patient presenting with neck pain. 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 His exam at this time was unremarkable. He had normal strength and sensation. I have low suspicion for any significant spinal pathology. It does seem like at nighttime he likely is falling asleep in a position that is then exacerbating his known arthritis. This does improve during the day. He does state that he sleeps comfortably in a recliner. He will usually start out of the bed in the move to the aquatic. I suggest that he try to sleep more upright in the bed. He tells me that he does not tolerate opiates, muscle relaxants. He is on Xarelto for history of blood clots so cannot take NSAIDs. At this point I offered him a Lidoderm patch I recommended putting on a Lidoderm patch and taking acetaminophen prior to going to bed and this will hopefully then offset any symptoms developing during the night. Overall I did not feel that any imaging was warranted at this time. Did recommend following up with his primary care doctor as well as his asset protection specialist about his neck pain. He was given strict return instructions and stated understanding. Diagnoses as of 01/17/25 0220 Strain of neck muscle, initial encounter External records reviewed: none Diagnostics interpreted by me: none Discussions with other clinicians: none Chronic conditions impacting care: none Social determinants of health affecting care: none ED Medications managed: Medications Lidocaine 4 % patch 1 patch (has no administration in time range) Prescription drugs considered: PROCEDURES: Unless otherwise noted below, none Procedures FINAL IMPRESSION 1. Strain of neck muscle, initial encounter DISPOSITION Discharge 01/17/2025 02:19:30 AM PATIENT REFERRED TO: Jermaine Church DO [address] [facility] [id number] Schedule an appointment as soon as possible for a visit Discuss also with your spinal specialist about your neck. DISCHARGE MEDICATIONS: New Prescriptions LIDOCAINE (LIDODERM) 5 % PATCH Apply 1 patch topically daily. Remove & discard patch within 12 hours or as directed by . (Comment: Please note this report has been produced using speech recognition software and may contain errors related to that system including errors in grammar, punctuation, and spelling, as well as words and phrases that may be inappropriate. If there are any questions or concerns please feel free to contact the dictating provider for clarification.) Nivia Brown MD (electronically signed) Emergency Medicine Provider [1] Past Medical History: Diagnosis Date Cancer (CMS/HCC) (HCC) Diverticula, colon Hypertension Reflex abnormality [2] Past Surgical History: Procedure Laterality Date KNEE SURGERY PROSTATECTOMY SHOULDER SURGERY [3] Family History Problem Relation Name Age of Onset Cancer Father [4] Social History Socioeconomic History Marital status: Tobacco Use Smoking status: Former Smokeless tobacco: Never Vaping Use Vaping status: Never Used Substance and Sexual Activity Alcohol use: Never Drug use: No Social Drivers of Health Financial Resource Strain: Low Risk (08/06/2024) Received from [facility] Overall Financial Resource Strain (CARDIA) Difficulty of Paying Living Expenses: Not very hard Transportation Needs: Unknown (08/06/2024) Received from [facility] PRAPARE - Transportation Lack of Transportation (Medical): No Housing Stability: Unknown (08/06/2024) Received from [facility] Housing Stability Vital Sign Unable to Pay for Housing in the Last Year: No Nivia Brown MD 01/17/25 0220 documented in this encounter [facility] 01-17-2025 Physician Emergency department Note EMERGENCY DEPARTMENT ENCOUNTER Pt Name: See Paris Birthdate 1945 Date of evaluation: 01/17/2025 ED Provider: Nivia Brown MD CHIEF COMPLAINT Chief Complaint Patient presents with Neck Pain Posterior neck pain for past 3 nights, denies acute trauma. No urinary or bowel incontinence HISTORY OF PRESENT ILLNESS (Location/Symptom, Timing/Onset, Context/Setting, Quality, Duration, Modifying Factors, Severity) Note limiting factors. I wore appropriate PPE for the entirety of this encounter. HPI See Paris is a 79 y.o. who presents to the emergency department with neck pain. Patient states that for the last 3 nights he gets woken up from sleep after couple of hours with pain in the back of his posterior neck. States it is worse when he moves around. He took some Tylenol prior to coming in. States that the pain then resolves in the morning and throughout the day. He denies any numbness, weakness. Did state that he got a new mattress 2 weeks ago. Initially I had talked him about possibly the new mattress causing issues but then he states he has been having these issues for much longer and that is what led to getting the new mattress. However feels like the symptoms have been getting worse over the last couple of nights. Nursing Notes were reviewed. Limitations to history: None Outside historians: None REVIEW OF SYSTEMS Review of Systems Pertinent positives and negatives as per HPI. PAST MEDICAL HISTORY Medical History[1] SURGICAL HISTORY Surgical History[2] CURRENT MEDICATIONS Previous Medications AMITRIPTYLINE (ELAVIL) 10 MG TABLET Take 2 tablets (20 mg) by mouth every evening. TAKE 1 TAB BY MOUTH AT SUPPERTIME FOR 7 DAYS, THEN TAKE 2 TABS BY MOUTH SUPPERTIME THEREAFTER AMLODIPINE (NORVASC) 2.5 MG TABLET Take 2 mg by mouth daily. CALCIUM CARB-CHOLECALCIFEROL (CALCIUM/VITAMIN D PO) Take by mouth. CHOLECALCIFEROL (VITAMIN D3 PO) Take by mouth daily. DICLOFENAC SODIUM (VOLTAREN) 1 % GEL Apply 2 g topically 2 times daily. DOXAZOSIN (CARDURA) 2 MG TABLET Take 2 mg by mouth daily. MEGESTROL (MEGACE) 20 MG TABLET Take by mouth daily. OMEPRAZOLE (PRILOSEC) [address] CAPSULE Take 20 mg by mouth every morning (before breakfast). Do not crush or chew. RIVAROXABAN (XARELTO) 15 MG TABLET Take 1 tablet (15 mg) by mouth in the morning and 1 tablet (15 mg) before bedtime. Do all this for 21 days. ALLERGIES Oxycodone, Floxin otic [ofloxacin], Hydrocodone, Hydrocodone-acetaminophen, Morphine, and Percocet [oxycodone-acetaminophen] FAMILY HISTORY Family History[3] SOCIAL HISTORY Social History[4] SCREENINGS PHYSICAL EXAM ED Triage Vitals 01/17/25 0159 Temp Heart Rate Resp BP 36.4 C (97.6 F) 63 15 (!) 176/82 SpO2 Temp Source Heart Rate Source Patient Position 98 % Temporal Monitor -- BP Location FiO2 (%) -- -- Physical Exam Vital Signs: Reviewed Constitutional: No acute distress Head: Normocephalic, atraumatic Eyes: No scleral injection, no scleral icterus, no conjunctival erythema ENT: Oropharynx clear, MMM Neck: Supple, trachea midline, no midline cervical spine tenderness, step-offs, deformities, full range of motion of the neck, patient however does have reproducible pain with [id number] movement of the neck Cardiovascular: RRR, no m/r/g Pulmonary: No evidence of labored breathing, clear to auscultation bilaterally Extremities: Warm, well perfused, no edema Neurological: Alert and oriented x 3, motor 5 out of 5 in flexion and extension of bilateral upper extremities at the elbow, extension of the wrist and fingers, 5 out of 5 flexion of all fingers, intact abduction and abduction of all fingers, intact abduction and adduction of bilateral shoulders, sensation intact to bilateral upper extremities as well as neck and posterior scalp Skin: Warm, dry, no rash DIAGNOSTIC RESULTS RADIOLOGY (Per Emergency Physician): Interpretation per the Radiologist below, if available at the time of this note: No orders to display LABS: Labs Reviewed - No data to display All other labs were within normal range or not returned as of this dictation. EMERGENCY DEPARTMENT COURSE and DIFFERENTIAL DIAGNOSIS/MDM: Vitals: Vitals: 01/17/25 0159 01/17/25 015 BP: (!) 176/82 Pulse: 63 Resp: 15 Temp: 36.4 C (97.6 F) TempSrc: Temporal SpO2: 98% Weight: 90.7 kg (200 lb) Height: 1.778 m (5' 10) The patient presented with a chief complaint of neck pain. The differential diagnosis associated with this patient's presentation includes muscle spasm, arthritis, cord compression, epidural abscess, epidural hematoma. Patient presenting with neck pain. 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 His exam at this time was unremarkable. He had normal strength and sensation. I have low suspicion for any significant spinal pathology. It does seem like at nighttime he likely is falling asleep in a position that is then exacerbating his known arthritis. This does improve during the day. He does state that he sleeps comfortably in a recliner. He will usually start out of the bed in the move to the aquatic. I suggest that he try to sleep more upright in the bed. He tells me that he does not tolerate opiates, muscle relaxants. He is on Xarelto for history of blood clots so cannot take NSAIDs. At this point I offered him a Lidoderm patch I recommended putting on a Lidoderm patch and taking acetaminophen prior to going to bed and this will hopefully then offset any symptoms developing during the night. Overall I did not feel that any imaging was warranted at this time. Did recommend following up with his primary care doctor as well as his asset protection specialist about his neck pain. He was given strict return instructions and stated understanding. Diagnoses as of 01/17/25 0220 Strain of neck muscle, initial encounter External records reviewed: none Diagnostics interpreted by me: none Discussions with other clinicians: none Chronic conditions impacting care: none Social determinants of health affecting care: none ED Medications managed: Medications Lidocaine 4 % patch 1 patch (has no administration in time range) Prescription drugs considered: PROCEDURES: Unless otherwise noted below, none Procedures FINAL IMPRESSION 1. Strain of neck muscle, initial encounter DISPOSITION Discharge 01/17/2025 02:19:30 AM PATIENT REFERRED TO: Jermaine Church DO [address] [facility] [id number] Schedule an appointment as soon as possible for a visit Discuss also with your spinal specialist about your neck. DISCHARGE MEDICATIONS: New Prescriptions LIDOCAINE (LIDODERM) 5 % PATCH Apply 1 patch topically daily. Remove & discard patch within 12 hours or as directed by MD. (Comment: Please note this report has been produced using speech recognition software and may contain errors related to that system including errors in grammar, punctuation, and spelling, as well as words and phrases that may be inappropriate. If there are any questions or concerns please feel free to contact the dictating provider for clarification.) Nivia Brown MD (electronically signed) Emergency Medicine Provider [1] Past Medical History: Diagnosis Date Cancer (CMS/HCC) (HCC) Diverticula, colon Hypertension Reflex abnormality [2] Past Surgical History: Procedure Laterality Date KNEE SURGERY PROSTATECTOMY SHOULDER SURGERY [3] Family History Problem Relation Name Age of Onset Cancer Father [4] Social History Socioeconomic History Marital status: Tobacco Use Smoking status: Former Smokeless tobacco: Never Vaping Use Vaping status: Never Used Substance and Sexual Activity Alcohol use: Never Drug use: No Social Drivers of Health Financial Resource Strain: Low Risk (08/06/2024) Received from [facility] Overall Financial Resource Strain (CARDIA) Difficulty of Paying Living Expenses: Not very hard Transportation Needs: Unknown (08/06/2024) Received from [facility] PRAPARE - Transportation Lack of Transportation (Medical): No Housing Stability: Unknown (08/06/2024) Received from [facility] Housing Stability Vital Sign Unable to Pay for Housing in the Last Year: No Nivia Brown MD 01/17/25 0220 [facility] 11-16-2024 Emergency department Note Discharge teaching completed. Pt verbalizes understanding of medications, times to return to the ED, and follow up care discussed. Pt is stable upon discharge. Pt is a/o x 4; breathing is even and unlabored on room air. No distress noted. Pt leaves ED with all belongings. [facility] 11-16-2024 Note Discharge teaching c ompleted. Pt verbalizes understanding of medications, times to return to the ED, and follow up care discussed. Pt is stable upon discharge. Pt is a/o x 4; breathing is even and unlabored on room air. No distress noted. Pt leaves ED with all belongings. [facility] 11-16-2024 Emergency department Note Discharge teaching completed. Pt verbalizes understanding of medications, times to return to the ED, and follow up care discussed. Pt is stable upon discharge. Pt is a/o x 4; breathing is even and unlabored on room air. No distress noted. Pt leaves ED with all belongings. EMERGENCY DEPARTMENT ENCOUNTER Pt Name: See Paris Birthdate 1945 Date of evaluation: 11/16/2024 ED Provider: Arpan Sun DO CHIEF COMPLAINT Chief Complaint Patient presents with Foot Pain Ankle Pain HISTORY OF PRESENT ILLNESS (Location/Symptom, Timing/Onset, Context/Setting, Quality, Duration, Modifying Factors, Severity) Note limiting factors. I wore appropriate PPE for the entirety of this encounter. HPI See Paris is a 79 y.o. who presents to the emergency department with chief complaint of Left foot pain. Patient states his symptoms started about 3 days ago and he was seen today by his PCP. Diagnosed with onychomycosis of the toes and toe tendinitis. Says that he was walking around at the store after his appointment and the pain worsened so he called EMS. Patient denies any injuries. He is anticoagulated on Xarelto and has been compliant. He denies any other systemic symptoms. Nursing Notes were reviewed. Limitations to history: None Outside historians: EMS REVIEW OF SYSTEMS Review of Systems Pertinent positives and negatives as per HPI. PAST MEDICAL HISTORY Medical History[1] SURGICAL HISTORY Surgical History[2] CURRENT MEDICATIONS Previous Medications AMITRIPTYLINE (ELAVIL) 10 MG TABLET Take 2 tablets (20 mg) by mouth every evening. TAKE 1 TAB BY MOUTH AT SUPPERTIME FOR 7 DAYS, THEN TAKE 2 TABS BY MOUTH SUPPERTIME THEREAFTER AMLODIPINE (NORVASC) 2.5 MG TABLET Take 2 mg by mouth daily. CALCIUM CARB-CHOLECALCIFEROL (CALCIUM/VITAMIN D PO) Take by mouth. CHOLECALCIFEROL (VITAMIN D3 PO) Take by mouth daily. DOXAZOSIN (CARDURA) 2 MG TABLET Take 2 mg by mouth daily. MEGESTROL (MEGACE) 20 MG TABLET Take by mouth daily. OMEPRAZOLE (PRILOSEC) [address] CAPSULE Take 20 mg by mouth every morning (before breakfast). Do not crush or chew. RIVAROXABAN (XARELTO) 15 MG TABLET Take 1 tablet (15 mg) by mouth in the morning and 1 tablet (15 mg) before bedtime. Do all this for 21 days. ALLERGIES Oxycodone, Floxin otic [ofloxacin], Hydrocodone, Hydrocodone-acetaminophen, Morphine, and Percocet [oxycodone-acetaminophen] FAMILY HISTORY Family History[3] SOCIAL HISTORY Social History[4] SCREENINGS Alana Coma Scale Best Eye Response: Spontaneous Best Verbal Response: Oriented Best Motor Response: Follows commands Alana Coma Scale Score: 15 PHYSICAL EXAM ED Triage Vitals [11/16/241900] Temp Heart Rate Resp BP 36.6 C (97.8 F) 54 16 (!) 154/72 SpO2 Temp Source Heart Rate Source Patient Position 99 % Oral Monitor -- BP Location FiO2 (%) -- -- Physical Exam Vitals and nursing note reviewed. Constitutional: General: He is not in acute distress. Appearance: He is well-developed. He is not ill-appearing or toxic-appearing. HENT: Head: Normocephalic and atraumatic. Cardiovascular: Rate and Rhythm: Normal rate and regular rhythm. Pulses: Normal pulses. Heart sounds: Normal heart sounds. No murmur heard. Pulmonary: Effort: Pulmonary effort is normal. No respiratory distress. Breath sounds: Normal breath sounds. Abdominal: General: There is no distension. Palpations: Abdomen is soft. Tenderness: There is no abdominal tenderness. Musculoskeletal: General: No swelling or tenderness. Normal range of motion. Cervical back: Normal range of motion and neck supple. Comments: No tenderness over the lateral or dorsal foot with palpation. No malleolar tenderness or fibular head. No edema of the calf. Compartments are soft. Skin: General: Skin is warm and dry. Capillary Refill: Capillary refill takes less than 2 seconds. Neurological: General: No focal deficit present. Mental Status: He is alert. Mental status is at baseline. Sensory: Sensory deficit (Diminish sensation to dull touch along the lateral aspect of the leg) present. Motor: No weakness. DIAGNOSTIC RESULTS RADIOLOGY (Per Emergency Physician): Interpretation per the Radiologist below, if available at the time of this note: XR foot 3+ views left Final Result No acute abnormality Report Dictated on Electronically Signed By: Patrick Sparrow MD Electronically Signed Date/Time: 11/16/2024 7:52 PM EDT XR tibia fibula 2 views left Final Result No acute abnormality Report Dictated on Electronically Signed By: Patrick Sparrow MD Electronically Signed Date/Time: 11/16/2024 7:52 PM EDT ED BEDSIDE ULTRASOUND: Performed by ED Physician - none LABS: Labs Reviewed - No data to display All other labs were within normal range or not returned as of this dictation. EMERGENCY DEPARTMENT COURSE and DIFFERENTIAL DIAGNOSIS/MDM: Vitals: Vitals: 11/16/241900 BP: (!) 154/72 Pulse: 54 Resp: 16 Temp: 36.6 C (97.8 F) TempSrc: Oral SpO2: 99% Weight: 88.5 kg (195 lb) Height: 1.778 m (5' 10) Diagnoses as of 11/16/242009 Left foot pain The patient presented with chief complaint of foot pain. The differential diagnosis associated with this patient's presentation includes fracture, sprain, DVT. Our workup consisted of ordering/reviewing: X-rays. Patient is in agreement with this plan. Medications - No data to display REVAL: 79-year-old male presenting to the ED for atraumatic left foot pain radiating into the distal leg. Patient is endorsing paresthesias over the lateral left leg. No motor deficits. Pulses are intact. I have low concern for leg ischemia or compartment syndrome. There is no focal tenderness to the lower extremity and no edema. He is compliant with Xarelto therefore low concern for DVT. X-rays of the foot and tib-fib show a plantar calcaneal enthesophyte which could be contributing to tendinitis causing his pain. Patient placed in a walking boot and given a prescription for Voltaren gel and short course of steroids. Given a podiatry referral. CRITICAL CARE TIME CONSULTS: None PROCEDURES: Unless otherwise noted below, none Procedures Patients symptoms are consistent with sepsis, severe sepsis, or septic shock (If yes use .sepsiscoremeasure): FINAL IMPRESSION 1. Left foot pain DISPOSITION Discharge 11/16/2024 08:06:26 PM PATIENT REFERRED TO: [facility] Podiatry [address] [address] DISCHARGE MEDICATIONS: New Prescriptions DICLOFENAC SODIUM (VOLTAREN) 1 % GEL Apply 2 g topically 2 times daily. (Comment: Please note this report has been [...] signed) Emergency Medicine Provider Arpan Sun DO 11/16/242009 [1] Past Medical History: Diagnosis Date Cancer (CMS/HCC) (HCC) Diverticula, colon Hypertension Reflex abnormality [2] Past Surgical History: Procedure Laterality Date KNEE SURGERY PROSTATECTOMY SHOULDER SURGERY [3] Family History Problem Relation Name Age of Onset Cancer Father [4] Social History Socioeconomic History Marital status: Tobacco Use Smoking status: Former Smokeless tobacco: Never Vaping Use Vaping status: Never Used Substance and Sexual Activity Alcohol use: Never Drug use: No Social Drivers of Health Financial Resource Strain: Low Risk (08/06/2024) Received from [facility] Overall Financial Resource Strain (CARDIA) Difficulty of Paying Living Expenses: Not very hard Transportation Needs: Unknown (08/06/2024) Received from [facility] PRAPARE - Transportation Lack of Transportation (Medical): No Housing Stability: Unknown (08/06/2024) Received from [facility] Housing Stability Vital Sign Unable to Pay for Housing in the Last Year: No Arpan Sun DO 11/16/242022 Patient to room 5 via [facility] with c/o left foot pain that started Saturday. Patient reports he saw his PCP today and was told Bursitis. Patient was then walking around [facility] and the pain increased. V/S obtained, call light within reach. documented in this encounter [facility] 11-16-2024 Hospital Discharge instructions Arpan Sun DO - 11/16/2024 8:09 PM EDT Use the Voltaren gel over your foot twice a day to help with pain and schedule an appointment to follow-up with podiatry if not improving. The following attachments cannot be sent through Care Everywhere.Heel Spurs Discharge Instructions ([place])documented in this encounter [facility] 11-16-2024 Emergency department Triage note Patient to room 5 via [facility] with c/o left foot pain that started Saturday. Patient reports he saw his PCP today and was told Bursitis. Patient was then walking around [facility] and the pain increased. V/S obtained, call light within reach. [facility] 11-16-2024 Physician Emergency department Note EMERGENCY DEPARTMENT ENCOUNTER Pt Name: See Paris Birthdate 1945 Date of evaluation: 11/16/2024 ED Provider: Arpan Sun DO CHIEF COMPLAINT Chief Complaint Patient presents with Foot Pain Ankle Pain HISTORY OF PRESENT ILLNESS (Location/Symptom, Timing/Onset, Context/Setting, Quality, Duration, Modifying Factors, Severity) Note limiting factors. I wore appropriate PPE for the entirety of this encounter. HPI See Paris is a 79 y.o. who presents to the emergency department with chief complaint of Left foot pain. Patient states his symptoms started about 3 days ago and he was seen today by his PCP. Diagnosed with onychomycosis of the toes and toe tendinitis. Says that he was walking around at the store after his appointment and the pain worsened so he called EMS. Patient denies any injuries. He is anticoagulated on Xarelto and has been compliant. He denies any other systemic symptoms. Nursing Notes were reviewed. Limitations to history: None Outside historians: EMS REVIEW OF SYSTEMS Review of Systems Pertinent positives and negatives as per HPI. PAST MEDICAL HISTORY Medical History[1] SURGICAL HISTORY Surgical History[2] CURRENT MEDICATIONS Previous Medications AMITRIPTYLINE (ELAVIL) 10 MG TABLET Take 2 tablets (20 mg) by mouth every evening. TAKE 1 TAB BY MOUTH AT SUPPERTIME FOR 7 DAYS, THEN TAKE 2 TABS BY MOUTH SUPPERTIME THEREAFTER AMLODIPINE (NORVASC) 2.5 MG TABLET Take 2 mg by mouth daily. CALCIUM CARB-CHOLECALCIFEROL (CALCIUM/VITAMIN D PO) Take by mouth. CHOLECALCIFEROL (VITAMIN D3 PO) Take by mouth daily. DOXAZOSIN (CARDURA) 2 MG TABLET Take 2 mg by mouth daily. MEGESTROL (MEGACE) 20 MG TABLET Take by mouth daily. OMEPRAZOLE (PRILOSEC) [address] CAPSULE Take 20 mg by mouth every morning (before breakfast). Do not crush or chew. RIVAROXABAN (XARELTO) 15 MG TABLET Take 1 tablet (15 mg) by mouth in the morning and 1 tablet (15 mg) before bedtime. Do all this for 21 days. ALLERGIES Oxycodone, Floxin otic [ofloxacin], Hydrocodone, Hydrocodone-acetaminophen, Morphine, and Percocet [oxycodone-acetaminophen] FAMILY HISTORY Family History[3] SOCIAL HISTORY Social History[4] SCREENINGS Alana Coma Scale Best Eye Response: Spontaneous Best Verbal Response: Oriented Best Motor Response: Follows commands [place] Coma Scale Score: 15 PHYSICAL EXAM ED Triage Vitals [11/16/24 1901] Temp Heart Rate Resp BP 36.6 C (97.8 F) 54 16 (!) 154/72 SpO2 Temp Source Heart Rate Source Patient Position 99 % Oral Monitor -- BP Location FiO2 (%) -- -- Physical Exam Vitals and nursing note reviewed. Constitutional: General: He is not in acute distress. Appearance: He is well-developed. He is not ill-appearing or toxic-appearing. HENT: Head: Normocephalic and atraumatic. Cardiovascular: Rate and Rhythm: Normal rate and regular rhythm. Pulses: Normal pulses. Heart sounds: Normal heart sounds. No murmur heard. Pulmonary: Effort: Pulmonary effort is normal. No respiratory distress. Breath sounds: Normal breath sounds. Abdominal: General: There is no distension. Palpations: Abdomen is soft. Tenderness: There is no abdominal tenderness. Musculoskeletal: General: No swelling or tenderness. Normal range of motion. Cervical back: Normal range of motion and neck supple. Comments: No tenderness over the lateral or dorsal foot with palpation. No malleolar tenderness or fibular head. No edema of the calf. Compartments are soft. Skin: General: Skin is warm and dry. Capillary Refill: Capillary refill takes less than 2 seconds. Neurological: General: No focal deficit present. Mental Status: He is alert. Mental status is at baseline. Sensory: Sensory deficit (Diminish sensation to dull touch along the lateral aspect of the leg) present. Motor: No weakness. DIAGNOSTIC RESULTS RADIOLOGY (Per Emergency Physician): Interpretation per the Radiologist below, if available at the time of this note: XR foot 3+ views left Final Result No acute abnormality Report Dictated on Electronically Signed By: Patrick Sparrow MD Electronically Signed Date/Time: 11/16/2024 7:52 PM EDT XR tibia fibula 2 views left Final Result No acute abnormality Report Dictated on Electronically Signed By: Patrick Sparrow MD Electronically Signed Date/Time: 11/16/2024 7:52 PM EDT ED BEDSIDE ULTRASOUND: Performed by ED Physician - none LABS: Labs Reviewed - No data to display All other labs were within normal range or not returned as of this dictation. EMERGENCY DEPARTMENT COURSE and DIFFERENTIAL DIAGNOSIS/MDM: Vitals: Vitals: 11/16/24 1901 BP: (!) 154/72 Pulse: 54 Resp: 16 Temp: 36.6 C (97.8 F) TempSrc: Oral SpO2: 99% Weight: 88.5 kg (195 lb) Height: 1.778 m (5' 10) Diagnoses as of 11/16/242009 Left foot pain The patient presented with chief complaint of foot pain. The differential diagnosis associated with this patient's presentation includes fracture, sprain, DVT. Our workup consisted of ordering/reviewing: X-rays. Patient is in agreement with this plan. Medications - No data to display REVAL: 79-year-old male presenting to the ED for atraumatic left foot pain radiating into the distal leg. Patient is endorsing paresthesias over the lateral left leg. No motor deficits. Pulses are intact. I have low concern for leg ischemia or compartment syndrome. There is no focal tenderness to the lower extremity and no edema. He is compliant with Xarelto therefore low concern for DVT. X-rays of the foot and tib-fib show a plantar calcaneal enthesophyte which could be contributing to tendinitis causing his pain. Patient placed in a walking boot and given a prescription for Voltaren gel and short course of steroids. Given a podiatry referral. CRITICAL CARE TIME CONSULTS: None PROCEDURES: Unless otherwise noted below, none Procedures Patients symptoms are consistent with sepsis, severe sepsis, or septic shock (If yes use .sepsiscoremeasure): FINAL IMPRESSION 1. Left foot pain DISPOSITION Discharge 11/16/2024 08:06:26 PM PATIENT [facility] [address] [place] [id number] DISCHARGE MEDICATIONS: New Prescriptions DICLOFENAC SODIUM (VOLTAREN) 1 % GEL Apply 2 g topically 2 times daily. (Comment: Please note this report has been [...] signed) Emergency Medicine Provider Arpan Sun DO 11/16/242009 [1] Past Medical History: Diagnosis Date Cancer (CMS/HCC) (HCC) Diverticula, colon Hypertension Reflex abnormality [2] Past Surgical History: Procedure Laterality Date KNEE SURGERY PROSTATECTOMY SHOULDER SURGERY [3] Family History Problem Relation Name Age of Onset Cancer Father [4] Social History Socioeconomic History Marital status: Tobacco Use Smoking status: Former Smokeless tobacco: Never Vaping Use Vaping status: Never Used Substance and Sexual Activity Alcohol use: Never Drug use: No Social Drivers of Health Financial Resource Strain: Low Risk (08/06/2024) Received from [facility] Overall Financial Resource Strain (CARDIA) Difficulty of Paying Living Expenses: Not very hard Transportation Needs: Unknown (08/06/2024) Received from [facility] PRAPARE - Transportation Lack of Transportation (Medical): No Housing Stability: Unknown (08/06/2024) Received from [facility] Housing Stability Vital Sign Unable to Pay for Housing in the Last Year: No Arpan Sun DO 11/16/242022 [facility] 09-23-2024 Note HNO ID: [id number] Author: MARY GONZALEZ MD Service: ? 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 Jermaine Church DO Status: RE G ER Study:Sinus/Facial Bone Date of Exam: Exam# [id number] Ordering Dr: Janene Kohler DO PROCEDURE: SINUS/FACIAL [...] air-fluid levels. Incidental osteoma right sphenoid sinus. [place] artifact from dental amalgam and fixation hardware. Status post right mandibular ORIF with plate and screws and non osseous united fracture plane, correlate with history. 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 TMJs appear normally located. Mastoids are clear. CT/Sinus/Facial Bone IMPRESSION: No acute fracture. Right cheek soft tissue swelling. Globes appear intact without retro bulbar stranding. [place] artifact from dental amalgam and fixation hardware. Status post right mandibular ORIF with plate and screws and non osseous united fracture plane, correlate with history. 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 Reading Location: [facility] CC: Dr. Jermaine Church DO; Ben Kohler DO ~ Electromechanisms Design Drafter: Signed [facility] 09-05-2024 Radiology Diagnostic study note [facility] Imaging Services [address] [place] [address] Spine Cervical without Contras MR#: [id number] Acct: [id number] Name: SEE PARIS Rep #: [id number] : 1945 M 79 From: Jon Gonzales MD PCP: Dr. Jermaine Church DO Status: RE G ER Study:Spine Cervical without Contras Date of Exam: 09/05/24 Exam# [id number] Ordering Dr: Janene Kohler DO PROCEDURE: SPINE [...] IMPRESSION: No fracture or malalignment. Reading Location: [id number] CC: Dr. Jermaine Church DO; Ben Kohler DO ~ Electromechanisms Design Drafter: Signed [facility] 09-05-2024 Radiology Diagnostic study note [facility] Imaging Services [address] [place] [address] Brain/Head without Contrast MR#: [id number] Acct: [id number] Name: SEE PARIS Rep #: [id number] : 1945 M 79 From: Jon Gonzales MD PCP: Dr. Jermaine Church DO Status: RE G ER Study:Brain/Head without Contrast Date of Exa m: 09/05/24 Exam# [id number] Ordering Dr: Janene Kohler DO PROCEDURE: BRAIN/HEAD [...] mass effect or calvarial fracture. Reading Location: [id number] CC: Dr. Jermaine Church DO; Ben Kohler DO ~ Electromechanisms Design Drafter: Signed [facility] 09-03-2024 Radiology Diagnostic study note [facility] Imaging Services [address] [place], [place] [id number] Abdomen/Pelvis W IV Cont ONLY MR#: [id number] Acct: [id number] Name: SEE PARIS Rep #: [id number] : 1945 M 79 From: Matt as Ricardo HICKS PCP: Dr. Jermaine Church DO Status: RE G ER Study:Abdomen/Pelvis W IV Cont ONLY Date of E xam: 09/03/24 Exam# [id number] Ordering Dr: Tre Rankin DO PROCEDURE: ABDOMEN/PELVIS [...] bilateral pars defects, chronic finding. Reading Location: [facility] CC: Dr. Lizzie Rankin, DO; Dr. Jermaine Church, DO ~ Electromechanisms Design Drafter: Signed [facility] 08-18-2024 Instructions Rafael Moncada APRN.VARGAS [...] refills has been sent to your preferred [facility] pharmacy on [address] in [place]. - Continue taking the medication daily until [...] contact our office. documented in this encounter [facility] 08-18-2024 History of Present illness Narrative [facility] M[facility] PATIENT - [...] (Patient not taking: Reported on 08/18/2024) omega 1-uao-pdy-fish oil (FISH OIL) 100-160-1,000 mg cap Take [...] discussed with the Patient or Patient's Authorized Horse Riding Coach Or Instructor. As applicable, any other physician, advance practice provider, medical student, or other health professional student that will be observing or involved in the sensitive examination for educational or training purposes was discussed with the Patient or Authorized Horse Riding Coach Or Instructor. The Patient or Authorized Horse Riding Coach Or Instructor has agreed to proceed with the sensitive [...] The patient consented to the use of 55social software for draft documentation of the visit consistent with [facility] s Notice of Privacy Practices. Rafael Moncada DNP, CASTRO Department of Urology [facility] documented in this encounter [facility] 08-18-2024 Note HNO ID: [id number] Author: RAFAEL MONCADA APRN.CASTRO, VARGAS Service: ? Author Type: Nurse Practitioner Type: Progress Notes Filed: 08/18/2024 11:04 Note Text: [facility] MALE PATIENT - [...] Alcohol use: Ye (more content not included)... [facility] 08-08-2024 Nurse Note Discharge instructions reviewed with patient at this time. This included medications and pharmacy, weight restrictions and follow-up appointments. Patient verbalized understanding at this time. Peripheral line removed from right arm no signs or symptoms of bleeding at this time. Patient packed personal belongings himself and exited unit via wheelchair with transport. [facility] 08-08-2024 Nurse Note Discharge instructions reviewed [...] PACU to T9 documented in this encounter [facility] Work Phone: 08-08-2024 History of Present illness Narrative Transitional Care Coordination Progress Note: Per MD Woo, patient to discharge home today, does not require IV antibiotics. Per pt will discharge on On t PO TMP-SMX 2DS BID and PO Flagyl 500 mg Q8H. Will require six weeks of antimicrobial therapy. EOT will be 09/16/2024.. IMM provided to patient. Willow Franklin RN, BSN Transitional [place] Office: [phone] Secure chat via Scurri See Paris is a 79 y.o. male [...] non tender, no organomegaly was appreciated. 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 No gross focal deficits appreciated. [...] on 06/14/2024. He was initially evaluated at [facility] ED, where a left maxillary sinus fracture [...] ID Fellow. For new consults, contact pager [phone]. Genalyte chat preferred. Wilda Rust MD Cosigned by eKith Celeste MD at 08/08/2024 8:47 AM EDT [...] closed fracture (Multi). Pharmacy reviewed the patient's ojdrq-by-ddcpfbdkm medications and allergies for accuracy. The list below reflects the updated BRICKLAYER HELPER list. Prior to Admission Medications Prescriptions Last [...] used to complete the med history include: [facility] Pharmacy dispense history Patient Interview Good historian Chart Review Care Everywhere Below are additional concerns with the patient's BRICKLAYER HELPER list. Patient is a good historian, he recalls most medications taking from memory. When prompted with drug names/ indication for remainder pt is able to identify if taking or not. Medications ADDED: none Medications CHANGED: Amlodipine from 2 tablets daily to 1 tablet daily Medications REMOVED: none Shanta Patrick PharmD Transitions of Care Pharmacist [facility] Please reach out via Secure Chat for questions, or if no response call [employer] or [employer] See Paris is a 79 y.o. male [...] chair [place] [phone] with any issues/concerns. Lizz Chaidez DDS OMFS PGY-1 Cosigned by Jimmy Kulkarni DDS at 08/06/2024 7:10 AM EDT documented in this encounter [facility] Work Phone: 08-08-2024 Plan of care note [...] did make progress toward the following goals. [facility] Work Phone: 08-08-2024 Miscellaneous Notes Problem: Pain [...] chair [place] [phone] with any issues/concerns. If any issue with contacting via pager, please contact Balta Woo via Scurri. 2nd call to contact via Scurri is Rosales Flowers 3rd call via Scurri is Wilfredo Woo DMD OMFS PGY-1 The [...] (R) Operative Note Date: 08/05/2024 OR Location: [facility] OR Name: See Paris : 1945, Age: 79 y.o., , Sex: male Diagnosis Pre-op Diagnosis * Fracture of unspecified part of body of left mandible, initial encounter for closed fracture (Multi) [S02.602A] Post-op Diagnosis * Fracture of unspecified part of body of left mandible, initial encounter for closed fracture (Multi) [S02.602A] Procedures EXCISION, FACIAL BONE - PA EXCISION BONE MANDIBLE INSERTION, IMPLANT, MANDIBLE - PA NSTJ MNDBL XTRORAL W/TRANSOSTEAL BONE PLATE 99205 - EXCISION OF NECK SOFT TISSUE LESION, 2cm 19431 - REPAIR OF SOFT TISSUE DEFECT OF NECK, 2cm Surgeons * Jimmy Kulkarni - Primary Resident/Fellow/Other Spot Washer: Surgeons and Role: * Rosales Flowers MD, DDS - Resident - Assisting Staff: Meteorological Equipment Repairer: Nicola Aguilera Person: Yolanda Aguilera Person: Ludivina Rice Scrub: Maya Rice Meteorological Equipment Repairer: Elizabeth Anesthesia Staff: Anesthesiologist: Darnell Dueñas DO; Rosmery Myers MD NET TECHNICAL ARCHITECT: Sumaya Bartlett APRN-NET TECHNICAL ARCHITECT Frontline Breaker: KYLEE CheryNET TECHNICAL ARCHITECT Procedure Summary Anesthesia: General ASA: III Estimated [...] SCREW, MMF, 2.0MM X 12MM, 8MM THR, - [id number] Implanted Screw SCREW, MMF, 2.0MM X 16MM, 12MM THR, SS - [id number] Implanted Screw PLATE, THREADLOCK 3.0 6H STRAIGHT W/BAR TS MELANIE RECON - [id number] Implanted KLS SCREWS - Implanted KLS SCREWS Implanted KLS SCREWS Implanted [...] nasal endotracheal tube was secured by the director behavioral health team. The patient was prepped and draped in standard director behavioral health fashion. A throat pack was placed. Approx. [...] was closed with 3-0 vicryl. A 10 wallisian flat FLORENTIN drain was placed and secured [...] note for details. documented in this encounter [facility] Work Phone: 08-07-2024 Plan of care note Problem: Pain - Adult Goal: Verbalizes/displays adequate comfort level or baseline comfort level Outcome: Progressing Problem: Safety - Adult Goal: Free from fall injury Outcome: Progressing The patient's goals for the shift include Pain control The clinical goals for the shift include Pt pain will controlled during shift [facility] 08-07-2024 Plan of care note The patient's [...] appropriate for maintaining nutritional needs Outcome: Progressing [facility] 08-06-2024 Plan of care note The patient's [...] appropriate for maintaining nutritional needs Outcome: Progressing [facility] 08-06-2024 Plan of care note Problem: Pain [...] appropriate for maintaining nutritional needs Outcome: Progressing [facility] 08-06-2024 Consult note Associated Order (s): Inpatient [...] left-sided jaw pain. He initially presented to [facility] ED on 06/14, where a CT of [...] non tender, no organomegaly was appreciated. 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 No gross focal deficits appreciated. [...] SEDRATE No results found for: HIV1X2, HIVCONF, TQKEPQ6HQ No results found for: HEPCABINIT, HEPCAB, HCVPCRQUANT [...] on 06/14/2024. He was initially evaluated at [facility] ED, where a left maxillary sinus fracture [...] ID Fellow. For new consults, contact pager [phone]. Genalyte chat preferred. Wilda Rust MD Cosigned by [...] decision making as documented in the note. [facility] Work Phone: 08-06-2024 Consult note Associated Order [...] left-sided jaw pain. He initially presented to [facility] ED on 06/14, where a CT of [...] non tender, no organomegaly was appreciated. 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 No gross focal deficits appreciated. [...] SEDRATE No results found for: HIV1X2, HIVCONF, ICWUSW6AS No results found for: HEPCABINIT, HEPCAB, HCVPCRQUANT [...] on 06/14/2024. He was initially evaluated at [facility] ED, where a left maxillary sinus fracture [...] ID Fellow. For new consults, contact pager [phone]. EPIC chat preferred. Wilda Rust MD Cosigned [...] in the note. documented in this encounter [facility] Work Phone: 08-06-2024 Hospital Discharge instructions Balta [...] the surgical sites have healed. MEDICATIONS: [facility] on [address]. - Your new medications: - Ibuprofen (Motrin): [...] located on the 1st floor within the [facility] ([address] [place] [address]). Our office phone number is [phone]. For any questions regarding patient care, [place] [phone]. Patients can contact the resident insulation estimator through hospital rougher machine operator [phone] If you have any questions or concerns please contact us during regular office hours ([phone]). For any emergency or after hours questions do not hesitate to contact the resident insulation estimator. You may call [phone] for the hospital rougher machine operator and ask for the ``Oral Surgeon Mellowing Machine Operator . documented in this encounter [facility] Work Phone: 08-05-2024 rate manager Note Patient is a 79 y/o [...] chair [place] [phone] with any issues/concerns. If any issue with contacting via pager, please contact Balta Woo via Scurri. 2nd call to contact via Scurri is Rosales Flowers 3rd call via Scurri is Wilfredo Woo DMD OMFS PGY-1 [facility] Work Phone: 08-05-2024 Plan of care note [...] appropriate for maintaining nutritional needs Outcome: Progressing [facility] Work Phone: 08-05-2024 Nurse Note 1630 received report from Janine Velasquez RN for lunch coverage; agree with RN previous assessment; she called report to the floor; patient stable, pain tolerable, resting comfortably, placed in transport, will monitor until out of PACU. 1653 pacu phase I care complete patient transported from PACU to T9 [facility] 08-05-2024 Surgery Surgical operation note FRACTURE, MANDIBLE, REMOVAL OF BONE AND PLACEMENT OF RECONSTRUCTION PLATE (L), EXCISION, FACIAL BONE (R), INSERTION, IMPLANT, MANDIBLE (R) Operative Note Date: 08/05/2024 OR Location: [facility] OR Name: See Paris DOB: 1945, Age: 79 y.o., , Sex: male Diagnosis Pre-op Diagnosis * Fracture of unspecified part of body of left mandible, initial encounter for closed fracture (Multi) [S02.602A] Post-op Diagnosis * Fracture of unspecified part of body of left mandible, initial encounter for closed fracture (Multi) [S02.602A] Procedures EXCISION, FACIAL BONE - PA EXCISION BONE MANDIBLE INSERTION, IMPLANT, MANDIBLE - [facility] X[facility] W/TRANSOSTEAL BONE PLATE 36830 - EXCISION OF NECK SOFT TISSUE LESION, 2cm 55104 - REPAIR OF SOFT TISSUE DEFECT OF NECK, 2cm Surgeons * Jimmy Kulkarni - Primary Resident/Fellow/Other Spot Washer: Surgeons and Role: * Rosales Flowers MD, DDS - Resident - Assisting Staff: Meteorological Equipment Repairer: Nicola Aguilera Person: Yolanda Aguilera Person: Ludivina Rice Scrub: Maya iRce Meteorological Equipment Repairer: Elizabeth Anesthesia Staff: Anesthesiologist: Darnell Dueñas DO; Rosmery Myers MD NET TECHNICAL ARCHITECT: KAITY Kim Frontline Breaker: KAITY Chery Procedure [...] SCREW, MMF, 2.0MM X 12MM, 8MM THR, - [id number] Implanted Screw SCREW, MMF, 2.0MM X 16MM, 12MM THR, SS - [id number] Implanted Screw PLATE, THREADLOCK 3.0 6H STRAIGHT W/BAR TS MELANIE RECON - [id number] Implanted KLS SCREWS - Implanted KLS SCREWS Implanted KLS SCREWS Implanted [...] nasal endotracheal tube was secured by the director behavioral health team. The patient was prepped and draped in standard director behavioral health fashion. A throat pack was placed. Approx. [...] was closed with 3-0 vicryl. A 10 wallisian flat FLORENTIN drain was placed and secured [...] entire duration. See resident note for details. [facility] Work Phone: 08-05-2024 History and physical note [...] care and [place] [phone] with any issues/concerns. If any issue with contacting via pager, please contact Mauri Martinez via Scurri. 2nd call to contact via Scurri is Rosales Flowers 3rd call via Scurri is Wilfredo Martinez DMD OMFS PGY-1 Cosigned [...] decision making as documented in the note. [facility] Work Phone: 08-05-2024 History and physical note [...] care and monitoring[place] [phone] with any issues/concerns. If any issue with contacting via pager, please contact Mauri Martinez via Scurri. 2nd call to contact via Scurri is Rosales Flowers 3rd call via Scurri is Wilfredo Martinez DMD OMFS PGY-1 Cosigned [...] in the note. documented in this encounter [facility] Work Phone: 06-14-2024 Hospital Discharge instructions Arpan Sun DO - 06/14/2024 12:13 PM EST Call to schedule appointment with oral surgery for follow-up: This physician is not a part of the [facility]. [address] [place] [address] If you need to follow-up with a physician within the [facility], contact the ENT office listed above. documented in this encounter [facility] 06-14-2024 Emergency department Note EMERGENCY DEPARTMENT ENCOUNTER [...] Closed fracture of maxillary sinus, initial encounter ([facility]) The patient presented with chief complaint of [...] Closed fracture of maxillary sinus, initial encounter ([facility]) DISPOSITION Discharge 06/14/2024 12:09:45 PM PATIENT REFERRED TO: [facility] [address] [place] [id number] DISCHARGE MEDICATIONS: Current Discharge Medication List [...] light within reach. documented in this encounter [facility] 06-14-2024 Emergency department Triage note Patient to room 3 with c/o a fall around 0930 this am. Patient was walking out his back door and slipped on the ice, landing on his face. Patient takes Xarelto. Patient reports jaw, mouth, and neck pain. V/S obtained, call light within reach. [facility] 06-14-2024 Physician Emergency department Note EMERGENCY [...] Closed fracture of maxillary sinus, initial encounter ([facility]) The patient presented with chief complaint of [...] Closed fracture of maxillary sinus, initial encounter ([facility]) DISPOSITION Discharge 06/14/2024 12:09:45 PM PATIENT REFERRED TO: [facility] [address] [place] [phone] DISCHARGE MEDICATIONS: Current Discharge Medication List [...] Medicine Provider Arpan Sun DO 06/14/24 1217 [facility] [facility]2024 Note HNO ID: [id number] Author: MARY GONZALEZ MD Service: ? Author Type: Physician Type: Progress Notes Filed: 09/14/2024 13:01 Note Text: ESTABLISHED PATIENT OFFICE VISIT HISTORY OF PRESENT ILLNESS No chief complaint on file. 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 [facility] 03-11-2024 History of Present illness Narrative ESTABLISHED PATIENT OFFICE VISIT HISTORY OF PRESENT ILLNESS No chief complaint on file. 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 Thanks documented in this encounter [facility] 09-05-2023 Nurse Note Patient given 45mg Lupron injection as documented in the MAR. Patient tolerated well. 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 RESULTS: N/A August 22, [address] PERFORMED: No IV SITE: Ambulatory: NM only - direct IV injection in the Right hand POST EXAM PIV STATUS: Discontinued PROCEDURE TYPE: NM INJECT: PET/CT WHOLE BODY SCAN. 9.6 mCi [id number]. No other medications given.. ADMINISTRATION TIME: 1220 PATIENT DISCHARGED TO: Ambulatory patient, left NM department area. A Diagnostic radioactive procedure has taken place, with no further precautions necessary other than routine body substance precautions. More information regarding radiation safety can be found using this link: [email or web address] [email or web address] [email or web address]%[email or web address] df SIGNATURE: RT Courtney(Twin) PATIENT NAME: See Paris DATE: August 22, 2023 TIME: 12:27 PM PAGER/CONTACT #: documented in this encounter [facility] 08-21-2023 History of Present illness Narrative [...] this; due for eye exam. Sees an daily sales audit clerk in [place] - will call to schedule appt. No [...] TSH VITAMIN B12: No results found for: [id number] No results found for: PHENYTOIN, PHENOBARB, VALPROATE, CBMZ No components found for: TOPIRA @RESULTINGLABINFO@ No results found for: LEVETIRACETA, FERRITIN, CRP, MARTIN, ANCA No results found for: OJ, IMMUNOGLOBUL, OLIGOBANDS No results found for: OMS87HK, HEPCAB No results found for: CRP, ANATITER, ANCA FERRITIN: No results found for: FERRITIN ---- CTA head neck angio w and wo IV contrast Narrative: Patient Name: SEE PARIS : 1945 Exam Date/Time: 08/13/2023 14:52 Procedure: CT HEAD [...] has dizziness with positional changes; will see Mawxell Rose for PT Headaches have improved with [...] @TDNR@ at @NOWNR@ documented in this encounter [facility] 08-21-2023 Instructions KIRTI Juan CNP - 08/21/2023 10:30 AM EDT Call [facility] Physical Therapy for PT with Maxwell Rose [phone] documented in this encounter [facility] 08-05-2023 Telephone encounter Note Last ov- 07/12/23 Next ov- 08/21/23 [facility] 08-05-2023 Miscellaneous Notes Last ov- 07/12/23 Next ov- 08/21/23 documented in this encounter [facility] 07-29-2023 History of Present illness Narrative ESTABLISHED [...] Urine (mg/dL) Date Value 01/17/2019 NEGATIVE Specific [place], Ur (no units) Date Value 01/17/2019 1.020 [...] 1 TABLET BY MOUTH EVERY DAY omega 2-edu-jry-fish oil (FISH OIL) 100-160-1,000 mg cap Take [...] 3 - Low documented in this encounter [facility] 07-12-2023 History of Present illness Narrative Images from the original note were not included. [facility] [address] [facility] [address] Dept: [phone] Dept Loc: [phone] Marcos Newsome MD Thank you for your kind [...] he started having the current dizziness around Camille time. Leaning forward and coming up makes [...] a past medical history of Cancer (CMS/HCC) ([facility]), Diverticula, colon, Hypertension, and Reflex abnormality. He has no past medical history of ADHD (attention deficit hyperactivity disorder), Allergic rhinitis, Anticoagulant long-term use, Anxiety, Asthma, Atrial fibrillation ([facility]), Bipolar disorder ([facility]), CAD (coronary artery disease), Carotid artery stenosis, Cerebrovascular disease, CHF (congestive heart failure) ([facility]), Chronic back pain, Chronic kidney disease, Congenital heart disease, COPD (chronic obstructive pulmonary disease) ([facility]), Depression, Emphysema of lung ([facility]), Erectile dysfunction, Fibromyalgia, GERD (gastroesophageal reflux disease), Headache, Hyperlipidemia, Hyperthyroidism, Hypothyroidism, Irritable bowel syndrome, Liver disease, Neuropathy, Obesity, Osteoarthritis, Peripheral vascular disease (HCC), Restless legs syndrome, Seizures (HCC), Sleep apnea, Substance abuse (CMS/HCC) (HCC), Type 2 diabetes mellitus without complication (CMS/HCC) (HCC), or Urinary incontinence. Past Surgical History: has [...] TSH VITAMIN B12: No results found for: [id number] FERRITIN: No results found for: FERRITIN ---- No results found for: PHENYTOIN, PHENOBARB, VALPROATE, CBMZ No components found for: TOPIRANo results found for: OXCARBAZE, OXCARB Patient Name: SEE PARIS Diagnostic Radiology ACCESSION EXAM DATE/TIME PROCEDURE ORDERING PROVIDER [id number] 06/29/2020 14:14 EST CR Spine Cervical Comp DO CHURCH JOSHUA D w/ Obliques CPT code 52665 Reason For Exam (CR Spine Cervical Comp [...] Physician DO CHURCH JOSHUA D Accession Number [id number] CPT4 Codes 60993 () Reason For Exam lumbago with bilateral [...] including diffusion images. Intracranial and extracranial 3D dnmh-tk-efgilv MRA. 3D maximum intensity projection images were [...] brain. 2. Negative MRA head and neck Electromechanisms Design Drafter: PSCJaya Transcribe Date/Time: Jan 20 2019 9:49A Dressing Room Attendant Echocardiography Report: Transthoracic Echo [facility] Date of service: 01/20/2019 10:43:55 AM HOSPITAL Ordering physician: JAMILA CALLOWAY Indication: Syncope Technologist: Patricia Whitten [facility] Interpreting physician: Jian Carbajal MD PATIENT: Name: [...] CC echocardiographic exam for comparison. @LASTAPPOINTMENTTHISPROV@ Vascular US lower extremity venous duplex right Patient Name: SEE PARIS Exam Date/Time: 04/26/2022 08:10 Procedure: VAS US LOWER EXTREMITY VENOUS DUPLEX RIGHT Ordering [...] OJ, IMMUNOGLOBUL, OLIGOBANDS No results found for: QAI41QT, HEPCAB No results found for: CRP, ANATITER, [...] arranging for studies. documented in this encounter [facility] 12-17-2022 History of Present illness Narrative ESTABLISHED [...] Urine (mg/dL) Date Value 01/17/2019 NEGATIVE Specific [place], Ur (no units) Date Value 01/17/2019 1.020 [...] 1 TABLET BY MOUTH EVERY DAY omega 7-wzt-xon-fish oil (FISH OIL) 100-160-1,000 mg cap Take [...] 4 - Moderate documented in this encounter [facility] 09-17-2022 Discharge summary Note Date/Time September 17, 2022 7:01pm [facility] Medical Records Department [address] [place] [address] Discharge Summary 09/17/22 1900 MR#: [id number] Acct: [id number] Name: SEE PARIS Rep #:[id number] : 1945 77 From: Mike Frost MD PCP: Dr. Jermaine Church DO Status:AD M IN Location: [facility] TCU21-1 Providers Date of Admission: 09/06/22 Primary Care [...] home with . Discharge home with 09/19/2022, [facility] Jose PT. Physical Exam Const alert General Appearance: [...] pain Additional Instructions: Discharge home with 09/19/2022, [facility] PT. Please Follow Up With: Tony Magaña DO When: As scheduled. Meaningful Use Info Meaningful Use Diagnoses (Choose all that apply): None applicable Discharge Plan Admission Admit Date/Time: 09/06/22 16:00 Primary Reason for Your Visit: Debility. Attending Provider: Mike Frost Chi Primary Care Provider: Jermaine Church Instructions Additional Instructions / Restrictions: Discharge home with 09/19/2022, [facility] PT. Discharge Orders/Prescriptions Prescriptions: New scopolamine base [...] Church DO; Dr. Mike Frost MD~ Signed [facility] Work Phone: 1(212) 517-138504-21-[address] Frost [facility] September 07, 2022 1:07pm Note Date/Time September 07, 2022 10: 01am [facility] Medical Records Department [address] [facility] [place] [address] Progress Note - Pharmacy 09/07/22 0946 MR#: [id number] Acct: [id number] Name: SEE PARIS Rep #:[id number] : 1945 77 From: Madyson Arredondo PCP: Dr. Jermaine D Ranjit, DO Status:AD M IN Location: TCU TCU21-1 TCU RX Drug Regimen Review Subjective: 77 [...] <Electronically signed by Madyson Arredondo > Madyson [employer] Cosigner Signature (if applicable): 09/07/22 1307 <Electronically signed by Mike Frost MD> CC: ~ Signed [facility] Work Phone: 1(297) 707-587404-20-2023 History and physical note Author Dr. Frost [facility] September 06, 2022 7:28pm Note Date/Time September 06, 2022 7:2 4pm [facility] Medical Records Department [address] [place], [place] [address] History & Physical Exam 09/06/221918 MR#: [id number] Acct: [id number] Name: SEE PARIS Rep #:[id number] : 1945 77 From: Mike Frost MD PCP: Dr. Jermaine Church, DO Status:AD M IN Location: U TCU21-1 HPI - General General Date of Admission: 09/06/22 Date of Service: 09/06/22 Chief Complaint: Here for rehabilitation. HPI Narrative SEE PARIS, is a 77 Male who presents with followin09/04/2022 Admit to [facility]. 09/04/[address] CT [...] for left total hiparthroplasty 09/04/[address] Borruso, admitted to TCU with debility, here forrehabilitation, [...] Church DO; Dr. Mike Frost MD~ Signed [facility] Work Phone: 1(133) 253-515304-20-2023 Discharge summary Author [facility] September 06, 2022 3:21pm Note Date/Time September 06, 2022 12: 11pm [facility] Medical Records Department [address] [place] [address] Discharge Summary 09/06/22 1206 MR#: [id number] Acct: [id number] Name: SEE PARIS Rep #:[id number] : 1945 77 From: Kari PAN PCP: Dr. Jermaine Church DO Status:AD M IN [place] [facility] HG095-5 Providers Date of Admission: 09/04/22 Date of [...] in before D/C Order can be placed): [facility] 09/06/22 1521 <Electronically signed by Kari PAN> Cosigner Signature (if applicable): CC: MAXIM Osorio; Dr. Jermaine Church DO~ Signed [facility] Work Phone: 1(434) 735-993904-19-[address] Quintana [facility] September 05, 2022 1:18pm Note Date/Time September 05, 2022 7:5 0am [facility] Medical Records Department [address] [facility] [place] [address] Progress Note - Hospitalist 09/05/22 0750 MR#: [id number] Acct: [id number] Name: SEE PARIS Rep #:[id number] : 1945 77 From: Renato Elliott PCP: Dr. Jermaine Church DO Status:AD M IN Location: MD3 [id number] Reason for Visit Reason for Visit: Diagnoses [...] prostatectomy/radiation/chemotherapy, OA, GERD who presents to the [facility] on 09/04/22with history of severe L hip [...] to home. Charges/Coding Visit Charges Inpatient E&M: 92158 Subs Hosp L2 09/05/22 1318 <Electronically signed by Renato Quintana MD> Cosigner Signature (if applicable): CC: ~ Signed [facility] Work Phone: 1(351) 124-964204-19-[address] Magaña [facility] September 05, 2022 12:34pm Note Date/Time September 05, 2022 12: 34pm [facility] System Medical Records Department [address] [place] [address] Progress Note - Orthopedic 09/05/22 1231 MR#: [id number] Acct: [id number] Name: SEE PARIS Rep #:[id number] : 1945 77 From: Tony Magaña DO PCP: Dr. Jermaine Church DO Status:AD M IN Location: [place] [address] Subjective Subjective Seen and examined doing well [...] Intake Total 3432 / 3432 1951.25 / 1951.25 Output Total 450 / 750 1150 / [...] anatomic alignment without complications. Electronically Signed: Nicola Valnetin, at 13:57 EDT Reading Location ID and State: [facility] / [place] , Service support , Physical Exam Const alert, oriented x3 [...] Cosigner Signature (if applicable): CC: ~ Signed [facility] Work Phone: 1(306) 964-576004-19-[address] Franklin [facility] September 05, 2022 12:03am Note Date/Time September 04, 2022 11: 44pm [facility] System Medical Records Department [address] [facility] [place] [address] Progress Note - Hospitalist 09/04/229 MR#: [id number] Acct: [id number] Name: SEE PARIS Rep #:[id number] : 1945 77 From: Jazmyne Franklin MD PCP: Dr. Jermaine Church, Status:AD IN Location[place] [facility] [id number] Reason for Visit Reason for Visit: Diagnoses [...] Electronically Signed: Nicola Valentin, at 13:57 EDT Reading Location ID and State: [facility] / [place] , Service support , Assessment & Plan Assessment/Plan (1) Osteoarthritis of hip: PLAN: Plan The patient is a 77 y/o M w/ PMHx: GERD, Hx VTE, Hx Prostate CA s/p prostatectomy/radiation/chemotherapy, OA, GERD who presents to the [facility] on 09/04/22 with history of severe L [...] Cosigner Signature (if applicable): CC: ~ Signed [facility] Work Phone: 1(484) 413-139904-18-2023 Procedure [facility] 09-04-2022 History and physical note Author Dr. Magaña [facility] September 04, 2022 10:23am Note Date/Time September 04, 2022 10: 23am [facility] Medical Records Department [address] [place] [address] History & Physical Exam 09/04/22 1022 MR#: [id number] Acct: [id number] Name: SEE PARIS Rep #:[id number] : 1945 77 From: Tony Magaña DO PCP: Dr. Jermaine Church, DO Status:AD M IN Location: [place] [address] History and Physical Date of Admission: 09/04/22 [facility] [address] [place] [address] [address] [place] [address] OFFICE VISIT Date of Service:? 07/13/22 MR#: [id number] Acct: [id number] Name:? SEE PARIS Rep #: [id number] : 1945 ? ? Provider: Dr. Tony Magaña, DO Age/Sex:? 77/M ? ? Location[place] [facility] Status: Signed Intake Vital Signs ? 07/13/2307:43 [...] PO DAILY 07/11/22 [History Confirmed 07/13/22] omega 7-lvx-lfp-fish oil 300 mg-1,000 mg capsule (Fish Oil) [...] 8 months ago. He sees the oncologist johanne in 11/2022 for re-evalaution. Ortho Exam General [...] Magaña DO; Dr. Jermaine Church DO~ Signed [facility] Work Phone: 1(326) 340-907103-10-2023 History of Present illness Narrative* Liliana Henry MA - 07/27/2022 9:50 AM EST suture * Radha Middleton MD - 07/27/2022 9:50 AM EST Images from the original note were not included. [facility] [address] [place] [address] Dept: [phone] Dept Loc: [phone] Visit type: Established Patient Reason for Visit: [...] Imaging/Testing: Radha Middleton MD documented in this [facility]02-28-2023 History of Present illness Narrative* Nickolas Ortiz DO - 07/17/2022 3:25 PM EST Images from the original note were not included. Subjective: Chief Complaint Patient presents with right hand Laceration- on thumb and first finer cut them on skirt trimmer. Happened at 2pm today Patient: See Paris is a 77 y.o. male SUBJECTIVE: 77 y.o. male sustained laceration of hand 2 hours ago. Nature of injury: cut on skirt trimmer. Tetanus vaccination status reviewed: tetanus status [...] days per IDSA guidelines, MRSA coverage). Nickolas Ortiz, 07/17/22 4:46 PM If symptoms do not improve, worsen, or new symptoms develop, see PCP for further evaluation. * Anahi Mistry MA - 07/17/2022 3:25 PM EST The patient, See Paris is a 77 y.o. male identity was verified by name and date of . Injection of TDVAX was administered per Dr. Nazanin Alcazar's Orders: Injection site: Right Deltoid Medication: TDVAX [facility]:[id number] LOT:[id number] Exp: 09/23/2023 Patient was advised to [...] removal. Anahi Mistry MA documented in this [facility]02-28-2023 Miscellaneous Notes* Addendum Note - Nickolas Ortiz DO - 07/17/2022 3:25 PM ESTAddended by: NICKOLAS ORTIZ on: 07/18/2022 10:39 AM Modules accepted: Orders documented in this [facility]02-28-2023 Note* Addendum Note - Nickolas Ortiz DO - 07/17/2022 3:25 PM ESTAddended by: NICKOLAS ORTIZ on: 07/18/2022 10:39 AM Modules accepted: Orders [facility] [id number] Note* Addendum Note - Nickolas Ortiz DO - 07/17/2022 3:25 PM ESTAddended by: NICKOLAS ORTIZ on: 07/18/2022 10:39 AM Modules accepted: Orders [id number] Note* Addendum Note - Nickolas Ortiz DO - 07/17/2022 3:25 PM ESTAddended by: NICKOLAS ORTIZ on: 07/18/2022 10:39 AM Modules accepted: Orders [facility] [id number] Note* Addendum Note - Nickolas Ortiz DO - 07/17/2022 3:25 PM ESTAddended by: NICKOLAS ORTIZ on: 07/18/2022 10:39 AM Modules accepted: Orders [facility] [id number] Note* Addendum Note - Nickolas Ortiz DO - 07/17/2022 3:25 PM ESTAddended by: NICKOLAS ORTIZ on: 07/18/2022 10:39 AM Modules accepted: Orders [facility] [id number] History of Present illness Narrative* Mary Gonzalez [...] Urine (mg/dL) Date Value 01/17/2019 NEGATIVE Specific [place], Ur (no units) Date Value 01/17/2019 1.020 [...] 1 TABLET BY MOUTH EVERY DAY omega 8-nge-ocf-fish oil (FISH OIL) 100-160-1,000 mg cap Take [...] of next ADT injection [facility] Miscellaneous Notes* Telephone Encounter - Jos Valle MA - 02/15/2022 1:36 PM EDT Patient called requesting the following refill. Requested Prescriptions Pending Prescriptions Disp Refills megestrol (MEGACE) 20 mg tablet [Pharmacy Med Name: MEGESTROL 20 MG TABLET] 3 Sig: TAKE 1 TABLET BY MOUTH TWICE A DAY Patient last appointment: 01/29/2022 Patient Phone numbers: [phone] (home) Request is for script(s) to be escript to pharmacy. Jos Valle MA documented in [facility] Miscellaneous Notes* Telephone Encounter - Belgica [...] advise Regina Mathew CMA documented in this [facility] Miscellaneous Notes* Telephone Encounter - Nacho Contreras Ma - 01/23/2022 3:06 PM EDT Patient called stating that he is getting hot flashes from the lupron and is asking if there is something that can be done about that? Can you advise? Nacho Contreras Ma documented in this encounterMem[facility] Nurse Note* Stan Klein LPN - 12/12/2021 1:29 PM EDT Patient given Lupron 45 mg IM injection in the right buttocks as documented in the MAR. Patient tolerated well. Stan Klein LPN documented in this encounterMem[facility]22 Miscellaneous Notes* Telephone Encounter - Alley Paredes MA - 11/06/2021 3:15 PM EDT Pharmacy faxed requesting the following refill. Pending Prescriptions Disp Refills BICALUTAMIDE 50 MG TABLET 90 tablet 5 Sig: TAKE 1 TABLET BY MOUTH EVERY DAY ZULAY: Yes Patient last appointment: 09/21/2021 Patient Phone numbers: [phone] (home) Request is for script(s) to be escript to pharmacy. Alley Paredes MA documented in this encounterMem[facility]05-[facility]22 Miscellaneous Notes* Telephone Encounter - Veronica Merino Cma - 10/04/2021 3:36 PM EDT Patient called stating he has recently been diagnosed with a blood clot. Per patient he stopped his Casodex because he was unsure if this medication could cause a blood clot? Patient is inquiring if Casodex is safe to take with a blood clot? Veronica Merino Cma documented in this encounterMem[facility]05[facility]2022 Miscellaneous Notes* Telephone Encounter - Maribell [...] Eligard Mary Gonzalez MD documented in this encounterMem[facility]04-08-2022 Miscellaneous Notes* Telephone Encounter - Dallin [...] advise Dallin Porter MA documented in this encounterMem[facility]03[facility] History of Present illness Narrative* Mary [...] Urine (mg/dL) Date Value 01/17/2019 NEGATIVE Specific [place], Ur (no units) Date Value 01/17/2019 1.020 [...] 1 TABLET BY MOUTH EVERY DAY omega 6-tol-yqj-fish oil (FISH OIL) 100-160-1,000 mg cap Take [...] PSA/test in 6 mths documented in this encounterMem[facility] HospitalDisuniversity [facility] ahu[facility] centerr summary Author Yair Pace [facility] December 15, 2022 2:38am Note Date/Time December 15, 2022 1:30 am [facility] Medical Records Department [address] [place] [address] Emergency Department Summary 12/15/22 MR#: [id number] Acct: [id number] Name: SEE PARIS Rep #:[id number] : [...] (Auto) 68.3 Lymph % (Auto) 14.5 L Cedar % (Auto) 9.2 Eos % (Auto) 6.6 [...] your Primary Care Provider. Call [facility] ([phone]) or report to the closest Emergency Room. Call 911 if necessary. 12/15/22 0238 <Electronically signed by Yair Pace MD> Cosigner Signature (if applicable): CC: Dr. Jermaine Church DO ~ Signed [facility] Work Phone: Evaluation note* Diagnosis Prostate cancer (HCC) Malignant neoplasm of prostate Rising PSA following treatment for malignant neoplasm of prostate documented in this encounter [facility]* Diagnosis Prostate cancer (HCC)- Primary Malignant neoplasm of prostate Rising PSA following treatment for malignant neoplasm of prostate Nocturia [facility] Diagnosis Right upper quadrant abdominal pain- Primary Abdominal pain, right upper quadrant Constipation, unspecified constipation type documented in this encounter [facility] Work Phone: Evaluation note* Diagnosis DVT of axillary vein, acute right (HCC)- Primary documented in this encounter [facility] Work Phone: Evaluation note* Diagnosis Prostate cancer (HCC) Malignant neoplasm of prostate Rising PSA following treatment for malignant neoplasm of prostate [facility]* Diagnosis Prostate cancer (HCC)- Primary Malignant neoplasm of prostate [facility] noteNo assessment information availableWLake County [facility] Work Phone: Evaluation note* Diagnosis Prostate cancer (HCC)- Primary Malignant neoplasm of prostate Rising PSA following treatment for malignant neoplasm of prostate Nocturia documented in this encounter [facility] note* Diagnosis Onset Date Resolution Status Osteoarthritis of hip acute Lumbar degenerative disc disease acute Osteoarthritis of left hip a cute SI joint arthritis acute Osteoarthritis of hip acute S/P total left hip arthroplasty acute [facility] Work Phone: Evaluation note* Diagnosis [...] of hip resolv ed Orthopedic aftercare acute [facility] Work Phone: Evaluation note* Diagnosis Prostate cancer (HCC)- Primary Malignant neoplasm of prostate Rising PSA following treatment for malignant neoplasm of prostate Nocturia documented in this 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 Cervico-occipital neuralgia Other syndromes affecting cervical region New daily persistent headache [facility]* Diagnosis Cervico-occipital neuralgia Other syndromes affecting cervical region [facility]* Diagnosis Prostate cancer (HCC)- Primary Malignant neoplasm of prostate Rising PSA following treatment for malignant neoplasm of prostate Nocturia documented [facility]* Diagnosis Vertebral artery insufficiency Vertebral artery syndrome [facility]* Diagnosis Cervico-occipital neuralgia- Primary Other syndromes affecting cervical region Vertigo Dizziness and giddiness New daily persistent headache documented in this encounter [facility] note* Diagnosis Prostate cancer (HCC) Malignant neoplasm of prostate Rising PSA following treatment for malignant neoplasm of prostate Nocturia documented in this encounter [facility] note* Diagnosis Prostate cancer (HCC)- Primary Malignant neoplasm of prostate Rising PSA following treatment for malignant neoplasm of prostate Nocturia documented in this encounter [facility] note* Diagnosis Prostate cancer (HCC)- Primary Malignant neoplasm of prostate documented in this encounter [facility] note* Diagnosis Prostate cancer (HCC)- Primary Malignant neoplasm of prostate Rising PSA following treatment for malignant neoplasm of prostate Nocturia documented in this encounter [facility] note* Diagnosis Laceration of right thumb without foreign body without damage to nail, initial encounter- Primary Laceration of right index finger without foreign body without damage to nail, initial encounter documented in this encounter [facility]* Diagnosis Visit for suture removal- Primary documented [facility] this [facility]* Diagnosis Onset Date Resolution Status S/P [...] ed Orthopedic aftercare acute Orthopedic aftercare acute [facility] Work Phone: Evaluation note* Diagnosis Fall, initial encounter- Primary Closed fracture of maxillary sinus, initial encounter ([facility]) documented in this encounter [facility] note* Diagnosis Closed fracture of right side of mandibular body, initial encounter (Multi) Fracture of unspecified part of body of left mandible, initial encounter for closed fracture (Multi) documented in this encounter [facility] Work Phone: Evaluation note* Diagnosis Fracture of unspecified part of body of left mandible, initial encounter for closed fracture (Multi)- Primary documented in this encounter [facility] Work Phone: Evaluation note* Diagnosis Nocturia- Primary History of prostate cancer Personal history of malignant neoplasm of prostate documented in this encounter [facility] note* Diagnosis Nocturia- Primary History of prostate cancer Personal history of malignant neoplasm of prostate Rising PSA following treatment for malignant neoplasm of prostate [facility] Diagnosis Left foot pain- Primary Pain in soft tissues of limb documented in this encounter [facility] note* Diagnosis Left foot pain- Primary Pain in soft tissues of limb documented in this encounter [facility] note* Diagnosis Sprain of unspecified ligament of left ankle, initial encounter Stress fracture of ankle, initial encounter documented in this encounter [facility] note* Diagnosis Strain of neck muscle, initial encounter- Primary [facility] Instructions* Christian Painter MD - 09/25/2021 Stool softeners and laxatives as needed such as docusate and MiraLAX. * Attachments The following attachments cannot be sent through Care Everywhere. * Constipation (Trinidadian) * Abdominal Pain (Trinidadian) documented in this [facility] Work Phone: Hospital Discharge instructions* Attachments The following attachments cannot be sent through Care Everywhere. * DVT (Deep Vein Thrombosis) (Trinidadian) documented in this [facility] Work Phone: Hospital Discharge instructions Additional Instructions [...] movements. I also would recommend taking an [id number] fiber supplements and increasing your fluid intake. If you have worsening symptoms please return to the emergency room. Please follow-up with your primary care doctor.[facility] Work Phone: Hospital Discharge instructions [...] the ER should you have any further concernsWLake County [facility] Work Phone: Instructions* Attachments The following attachments cannot be sent through Care Everywhere. * Laceration Repair With Stitches Discharge Instructions (Trinidadian) * Wound Care Discharge Instructions (Trinidadian) documented in this [facility] for referral (narrative)* Diagnostic Procedure Only (Routine) - Authorized Specialty Diagnoses / Procedures Referred By Contac t Referred To Contact MOLECULAR & FUNCTIONAL IMAGING Diagnoses Prostate cancer (HCC) Rising PSA following treatment for malignant neoplasm of prostate Nocturia Procedures NM PET/CT PROSTATE WHOLE BODY IMAGING PET IMAGING CT ATTENUATION SKULL BASE MID-THIGH Mary Gonzalez MD [address] [place] [address] Molecular & Functional Imaging [address] [place] [address] Referral ID Status Reason Start Date Expiration Date Visits Requested Visits Authorized [id number] Authorized Auto-Generat ed Referral 07/29/2023 01/25/2024 2 2 [facility] for referral (narrative)No reason for referral information availableWLake County [facility] Work Phone: [facility] for visit Narrative* Diagnostic Procedure Only (Routine) - Closed Specialty Diagnoses / Procedures Referred By Contac t Referred To Contact MOLECULAR & FUNCTIONAL IMAGING Diagnoses Prostate cancer (HCC) Rising PSA following treatment for malignant neoplasm of prostate Nocturia Procedures NM PET/CT PROSTATE WHOLE BODY IMAGING PET IMAGING CT ATTENUATION SKULL BASE MID-THIGH Mary Gonzalez MD [address] [place] [address] Molecular & Functional Imaging [address] [place] [address] Referral ID Status Reason Start Date Expiration Date V isits Requested Visits Authorized [id number] Closed Auto-Generate d Referral 07/29/2023 01/25/2024 2 2 [facility] for visit Narrative* Imaging (Emergency) - Authorized Specialty Diagnoses / Procedures Referred By Contac Referred To Contact Radiology Diagnoses Closed fracture of right side of mandibular body, initial encounter (Multi) Procedures CT maxillofacial bones wo IV contrast Jimmy Kulkarni, DDS [address] [place] [address] Phone: tel: fax: Referral ID Status Reason Start Date Expiration Date Visits Requested Visits Authorized [id number] Authorized Perform Procedure 07/31/2024 07/31/2025 1 1 [facility] Work Phone: reason for visit Narrative* Auth/Cert Specialty Diagnoses / Procedures Referred By Jennie t Referred To Contact Diagnoses Fracture of unspecified part of body of left mandible, initial encounter for closed fracture (Multi) Fracture of Unspecified part of Body of Left Mandible, initial encounter for closed fracture [S02.602XA] Procedures PA OPEN TX MANDIBULAR FX W/INTERDENTAL FIXATION ORIF, FRACTURE, MANDIBLE Jimmy Kulkarni, DDS [address] [place] [address] Phone: tel: fax: [facility] Samantha PEREZ [address] [place] [address] fax: Referral ID Status Reason Start Date Expiration Date Visits Re quested Visits Authorized [id number] 1 1 [facility] Work Phone: Rehxtu for visit Narrative* Imaging (Routine) - Closed Specialty Diagnoses / Procedures Referred By Jennie t Referred To Contact Radiology Diagnoses Sprain of unspecified ligament of left ankle, initial encounter Stress fracture of ankle, initial encounter Procedures CT ankle left wo IV contrast Terry Randle, ERMELINDA [address] [place] [address] Phone: tel: fax: Referral ID Status Reason Start Date Expiration Date Visits Re quested Visits Authorized [id number] Closed 12/03/2024 12/03/2025 1 1 [facility] Summary Purpose Family History No Family History [...] FoundDocuments on File Type Date Recorded 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 Advance Directives and Living Will Power of Videotape Editor Documents on File Type Date Recorded 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 Advance Directive(s) 01/17/2019 10:05 AM Documents on File Type Date Recorded 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 ACP-Advance Directive ACP-Power of Videotape Editor Advance Directive Response Recorded Date/ Time Name of Medical Power of Videotape Editor Monse Paris September 04, 2022 3:51pm Living Will Yes September 04, 2022 3:51pm Power of Videotape Editor Yes September 04 3:51pm Advance Directive Response Recorded Date/ Time Name of Medical Power of Videotape Editor Monse Paris September 04, 2022 3:51pm Name of Medical Power of Videotape Editor Monse Paris, September 07, 2022 12:17pm Living Will Yes September 07, 2022 12:17pm Power of Videotape Editor Yes September 07 12:17pm Advance Directive Response Recorded Date/ Time Name of Medical Power of Videotape Editor Monse Paris September 04, 2022 3:51pm Name of Medical Power of Videotape Editor Monse Paris, September 07, 2022 12:17pm Name of Medical Power of Videotape Editor Monse Paris December 15, 2022 1:04am Living Will Yes December 15, 2022 1:04am Power of Videotape Editor Yes December 15 1:04am Date Activated Date Inactivated Comments 08/05/2024 5:30 PM Question Answer Comments Plan of Care: Code Status Discussion Completed Decision Maker: Patient Advance Directive Response Recorded Date/ Time Living Will Yes September 03, 2024 4:32am Do you have a Healthcare Power of Videotape Editor? Yes September 03, 2024 4:32am Name of Medical Power of Videotape Editor Monse- spouse September 03, 2024 4:32am Advance Directive Response Recorded Date/ Time Living Will Yes September 03, 2024 4:32am Do you have a Healthcare Power of Videotape Editor? Yes September 03, 2024 4:32am Name of Medical Power of Videotape Editor Monse- spouse September 03, 2024 4:32am Living Will No September 05, 2024 5:22am Do you have a Healthcare Power of Videotape Editor? No September 05, 2024 5:22am Chief Complaint [...] 7am fall September 05, 2024 5:2 1am Chief Complaint Admit Date abd pain September 03, 2024 4:2 7am fall September 05, 2024 5:2 1am leg pain November 15, 2024 11:3 0pm Reason for Referral Specialty Diagnoses / Procedures Referred By Contac t Referred To Contact Radiology Diagnoses Vertebral artery insufficiency Procedures CTA head neck angio w and wo IV contrast Marcos Newsome MD [address] [facility] [address] [place] [address] Referral ID Status Reason Start Date Expiration Date V isits Requested Visits Authorized [id number] Pending Review 07/12/2023 07/11/2024 1 1 Referral ID Status Reason Start Date Expiration Date Visits Re quested Visits Authorized [id number] Closed 07/12/2023 07/11/2024 1 1 Specialty Diagnoses / Procedures Referred By Contac t Referred To Contact Physical Therapy Diagnoses Cervico-occipital neuralgia Vertigo Procedures PA OFFICE/OUTPATIENT NEW HIGH MDM 60 MINUTES Suzan Teixeira, KIRTI - CASTRO [address] [facility] [address] [place] [address] Referral ID Status Reason Start Date Expiration Date Visits Requested Visits Authorized [id number] Pending Review Eval and Treat 08/21/2023 02/17/2024 99 99 Scheduling Instructions Please schedule patient with Maxwell Rose only. No neck massage - developed a [...] section and content) DATE CREATED AUTHOR 11/13/2017 [facility] DATE CREATED AUTHOR AUTHOR'S ORGANIZ ATION 11/05/2019 [facility] DATE CREATED AUTHOR AUTHOR'S ORGANIZ ATION 10/28/2021 [facility] DATE CREATED AUTHOR AUTHOR'S ORGANIZ ATION 08/05/2024 [facility] DATE CREATED AUTHOR AUTHOR'S ORGANIZ ATION 08/08/2024 [facility] DATE CREATED AUTHOR AUTHOR'S ORGANIZ ATION 08/24/2024 [facility] DATE CREATED AUTHOR AUTHOR'S ORGANIZ ATION 08/25/2024 [facility] DATE CREATED AUTHOR AUTHOR'S ORGANIZ ATION [facility]/20[facility] DATE CREATED AUTHOR AUTHOR'S ORGANIZ ATION 11/22/2024 [facility] DATE CREATED AUTHOR AUTHOR'S ORGANIZ ATION 01/18/2025 [facility] Reason for Visit (unrecogniz ed section and [...] (HCC) Specialty Diagnoses / Procedures Referred By Jennie concepcion Referred To Contact Urology / UROLOGY Diagnoses Malignant neoplasm of prostate 6 MONTH LUPRON INJECTION Procedures LEUPROLIDE ACETATE SUSPNSION 6 MONTH LUPRON INJECTION Mary Gonzalez MD [address] [place] [address] Exchange, Nurse Urol [address] [place] [address] Referral ID Status Reason Start Date Expiration Date Visits Requested Visits Authorized [id number] Authorized Patient Cleared - Admin/Chairm an/Director advise to proceed 08/10/2021 08/10/2022 2 2 Reason Comments Patient Question Reason Onset Date Comments Refill Request 02/01/2022 Refill Request 02/02/2022 Reason Comments New Patient Dizziness Headache Specialty Diagnoses / Procedures Referred By Contac t Referred To Contact Neurology Diagnoses Dizziness and giddiness Procedures PA OFFICE/OUTPATIENT NEW MODERATE MDM 45 MINUTES Jermaine Church, DO [address] [place] [address] Marcos Newsome MD [address] [address] Referral ID Status Reason Start Date Expiration Date V isits Requested Visits Authorized [id number] Pending Review 06/27/2023 06/27/2024 1 1 Reason Comments Prostate Cancer Specialty Diagnoses / Procedures Referred By Contac t Referred To Contact Urology / UROLOGY Diagnoses 6 month lupron seeing Lisa first Procedures LEUPROLIDE ACETATE SUSPNSION Mary Alicea MD [address] [place] [address] Exchange, Nurse Urol [address] [place] [address] Referral ID Status Reason Start Date Expiration Date V isits Requested Visits Authorized [id number] Authorized 11/30/2022 12/01/2023 99 99 Reason Comments Med Change Request Specialty Diagnoses / Procedures Referred By Contac t Referred To Contact Radiology Diagnoses Vertebral artery insufficiency Procedures CTA head neck angio w and wo IV contrast Marcos Newsome MD [address] [address] Referral ID Status Reason Start Date Expiration Date Visits Re quested Visits Authorized [id number] Closed 07/12/2023 07/11/2024 1 1 Reason Comments Follow-up Vertebral artery insufficiency Specialty Diagnoses / Procedures Referred By Contac t Referred To Contact Urology / UROLOGY Diagnoses 6 month lupron seeing Lisa first Procedures LEUPROLIDE ACETATE SUSPNSION Mary Alicea MD [address] [place] [address] Exchange, Nurse Urol [address] [place] [address] Reason Comments right hand Laceration- on thumb and first finer cut them on skirt trimmer. Happened at 2pm today Reason Comments Suture / Staple Removal Reason Comments Fall Facial Injury Reason Comments Follow Up On antibiotics. Rece ntly in the hospital. Burning started last November Post Void Residual 9mL Reason Comments Foot Pain Ankle Pain Reason Comments Neck Pain Posterior neck pain for past 3 nights, denies acute trauma. No urinary or bowel incontinence Source Comments (unrecognize d section and content) In the event this informatio n is protected by the Federal Confidentiality of Alcohol and Drug Abuse Patient Records regulations: The Federal rules restrict any use of the information to criminally investigate or prosecute any alcohol or drug abuse patient.[facility] Hospital[facility] the event this information is protected by the Federal Confidentiality of Alcohol and Drug Abuse Patient Records regulations: The Federal rules restrict any use of the information to criminally investigate or prosecute any alcohol or drug abuse patient.[facility] HospitalIn the event this information is protected by the Federal Confidentiality of Alcohol and Drug Abuse Patient Records regulations: The Federal rules restrict any use of the information to criminally investigate or prosecute any alcohol or drug abuse patient.[facility] HospitalIn the event this information is protected by the Federal Confidentiality of Alcohol and Drug Abuse Patient Records regulations: The Federal rules restrict any use of the information to criminally investigate or prosecute any alcohol or drug abuse patient.[facility] HospitalIn the event this information is protected by the Federal Confidentiality of Alcohol and Drug Abuse Patient Records regulations: The Federal rules restrict any use of the information to criminally investigate or prosecute any alcohol or drug abuse patient.[facility] HospitalIn the event this information is protected by the Federal Confidentiality of Alcohol and Drug Abuse Patient Records regulations: The Federal rules restrict any use of the information to criminally investigate or prosecute any alcohol or drug abuse patient.[facility] HospitalIn the event this information is protected by the Federal Confidentiality of Alcohol and Drug Abuse Patient Records regulations: The Federal rules restrict any use of the information to criminally investigate or prosecute any alcohol or drug abuse patient.[facility] HospitalIn the event this information is protected by the Federal Confidentiality of Alcohol and Drug Abuse Patient Records regulations: The Federal rules restrict any use of the information to criminally investigate or prosecute any alcohol or drug abuse patient.[facility] HospitalIn the event this information is protected by the Federal Confidentiality of Alcohol and Drug Abuse Patient Records regulations: The Federal rules restrict any use of the information to criminally investigate or prosecute any alcohol or drug abuse patient.[facility] HospitalIn the event this information is protected by the Federal Confidentiality of Alcohol and Drug Abuse Patient Records regulations: The Federal rules restrict any use of the information to criminally investigate or prosecute any alcohol or drug abuse patient.[facility] HospitalIn the event this information is protected by the Federal Confidentiality of Alcohol and Drug Abuse Patient Records regulations: The Federal rules restrict any use of the information to criminally investigate or prosecute any alcohol or drug abuse patient.[facility] HospitalIn the event this information is protected by the Federal Confidentiality of Alcohol and Drug Abuse Patient Records regulations: The Federal rules restrict any use of the information to criminally investigate or prosecute any alcohol or drug abuse patient.[facility] HospitalIn the event this information is protected by the Federal Confidentiality of Alcohol and Drug Abuse Patient Records regulations: The Federal rules restrict any use of the information to criminally investigate or prosecute any alcohol or drug abuse patient.[facility] HospitalIn the event this information is protected by the Federal Confidentiality of Alcohol and Drug Abuse Patient Records regulations: The Federal rules restrict any use of the information to criminally investigate or prosecute any alcohol or drug abuse patient.[facility] HospitalIn the event this information is protected by the Federal Confidentiality of Alcohol and Drug Abuse Patient Records regulations: The Federal rules restrict any use of the information to criminally investigate or prosecute any alcohol or drug abuse patient.[facility] HospitalIn the event this information is protected by the Federal Confidentiality of Alcohol and Drug Abuse Patient Records regulations: The Federal rules restrict any use of the information to criminally investigate or prosecute any alcohol or drug abuse patient.[facility] HospitalIn the event this information is protected by the Federal Confidentiality of Alcohol and Drug Abuse Patient Records regulations: The Federal rules restrict any use of the information to criminally investigate or prosecute any alcohol or drug abuse patient.[facility] HospitalIn the event this information is protected by the Federal Confidentiality of Alcohol and Drug Abuse Patient Records regulations: The Federal rules restrict any use of the information to criminally investigate or prosecute any alcohol or drug abuse patient.[facility] HospitalIn the event this information is protected by the Federal Confidentiality of Alcohol and Drug Abuse Patient Records regulations: The Federal rules restrict any use of the information to criminally investigate or prosecute any alcohol or drug abuse patient.[facility] HospitalIn the event this information is protected by the Federal Confidentiality of Alcohol and Drug Abuse Patient Records regulations: The Federal rules restrict any use of the information to criminally investigate or prosecute any alcohol or drug abuse patient.[facility] HospitalIn the event this information is protected by the Federal Confidentiality of Alcohol and Drug Abuse Patient Records regulations: The Federal rules restrict any use of the information to criminally investigate or prosecute any alcohol or drug abuse patient.[facility] HospitalIn the event this information is protected by the Federal Confidentiality of Alcohol and Drug Abuse Patient Records regulations: The Federal rules restrict any use of the information to criminally investigate or prosecute any alcohol or drug abuse patient.[facility] HospitalIn the event this information is protected by the Federal Confidentiality of Alcohol and Drug Abuse Patient Records regulations: The Federal rules restrict any use of the information to criminally investigate or prosecute any alcohol or drug abuse patient.[facility] HospitalIn the event this information is protected by the Federal Confidentiality of Alcohol and Drug Abuse Patient Records regulations: The Federal rules restrict any use of the information to criminally investigate or prosecute any alcohol or drug abuse patient.[facility] HospitalIn the event this information is protected by the Federal Confidentiality of Alcohol and Drug Abuse Patient Records regulations: The Federal rules restrict any use of the information to criminally investigate or prosecute any alcohol or drug abuse patient.[facility] HospitalIn the event this information is protected by the Federal Confidentiality of Alcohol and Drug Abuse Patient Records regulations: The Federal rules restrict any use of the information to criminally investigate or prosecute any alcohol or drug abuse patient.[facility] HospitalIn the event this information is protected by the [facility] Confidentiality of Alcohol and Drug Abuse Patient Records regulations: The Federal rules restrict any use of the information to criminally investigate or prosecute any alcohol or drug abuse patient.[facility] HospitalIn the event this information is protected by the Federal Confidentiality of Alcohol and Drug Abuse Patient Records regulations: The Federal rules restrict any use of the information to criminally investigate or prosecute any alcohol or drug abuse patient.[facility] Care Teams (unrecognized sec tion and content) Combination Man Relationship Specialty Start Date End Date Jermaine Church DO [address] [place], [place] [address] PCP - General Family Practice 10/28/17 Combination Man Relationship Specialty Start Date End Date Jermaine Church DO [address] [place], [place] [address] PCP - General Family Practice 10/28/17 Combination Man Relationship Specialty Start Date End Date Jermaine Church DO [address] [address] PCP - General Family Practice 10/28/17 Combination Man Relationship Specialty Start Date End Date Jermaine Church DO [address] [place] [address] PCP - General 11/04/15 Combination Man Relationship Specialty Start Date End Date Jermaine Church DO [address] [place] [address] PCP - General 11/04/15 Combination Man Relationship Specialty Start Date End Date Jermaine Church DO [address] [place] [address] PCP - General Family Practice 10/28/17 Combination Man Relationship Specialty Start Date End Date Jermaine Church DO [address] [facility] [address] PCP - General Family Practice 10/28/17 Combination Man Relationship Specialty Start Date End Date Jermaine Church DO [address] [place] [address] PCP - General Family Practice 10/28/17 Combination Man Relationship Specialty Start Date End Date Jermaine Church DO [address] [place] [address] PCP - General Family Practice 10/28/17 Combination Man Relationship Specialty Start Date End Date Jermaine Church DO [address] [place] [address] PCP - General Family Medicine 10/28/17 Team Status: Active Member Role Status Dates Dr. Jermaine Church , DO Primary Care Provider Active Team Status: Inactive Member Role Status Dates Dr. Jermaine Church , Primary Care Provider Active Dr. Geovani Bhandari MD Attending Provider, Referring Pr ovider Active Combination Man Relationship Specialty Start Date End Date Jermaine Church DO [address] [place] [address] PCP - General Family Medicine 10/28/17 Team Status: Inactive Member Role Status Dates Dr. Jermaine Church DO Primary Care Provider, Referr ing Provider Active Dr. Ryley Melo DO Attending Provider Active Team Status: Inactive [...] Magaña DO Admit Provider, Attending Provider, Referring Provider Active Dr. Renato Quintana MD Other Provider Active Team Status: Inactive Member Role Status Dates Dr. Jermaine Church DO Primary Care Provider Active Dr. Tony Magaña DO Attending Provider, Referring Provider Active Team Status: Active Member Role Status Dates Dr. Jermaine Church DO Primary Care Provider Active Dr. Tony Magaña DO Admit Provider, Other Provider Active Dr. Renato Quintana MD Attending Provider, Other Provi curtis Active Team Status: Inactive Member Role Status Dates Dr. Jermaine Church DO Primary Care Provider Active Dr. Mike Frost MD Admit Provider, Attending Provid er Active Combination Man Relationship Specialty Start Date End Date Jermaine Church DO [address] [place] [address] PCP - General Family Medicine 10/28/17 Combination Man Relationship Specialty Start Date End Date Jermaine Church DO [address] [place] [phone] PCP - General 11/04/15 Combination Man Relationship Specialty Start Date End Date Jermaine Church DO [address] [place] [phone] PCP - General 11/04/15 Combination Man Relationship Specialty Start Date End Date Jermaine Church DO [address] [place] [address] PCP - General Family Medicine 10/28/17 Combination Man Relationship Specialty Start Date End Date Jermaine Church DO [address] [place] [phone] PCP - General 11/04/15 Combination Man Relationship Specialty Start Date End Date Jermaine Church DO [address] [place] [phone] PCP - General 11/04/15 Combination Man Relationship Specialty Start Date End Date Jermaine Church DO [address] [place] [address] PCP - General Family Medicine 10/28/17 Combination Man Relationship Specialty Start Date End Date Jermaine Church DO [address] [place] [address] PCP - General Family Medicine 10/28/17 Combination Man Relationship Specialty Start Date End Date Jermaine Church DO [address] [place] [address] PCP - General Family Medicine 10/28/17 Combination Man Relationship Specialty Start Date End Date Jermaine Church DO [address] [place] [address] PCP - General Family Medicine 10/28/17 Combination Man Relationship Specialty Start Date End Date Jermaine Church DO [address], [place] [address] PCP - General Family Medicine 10/28/17 Combination Man Relationship Specialty Start Date End Date Jermaine Church DO [address] [place] [address] PCP - General Family Medicine 10/28/17 Combination Man Relationship Specialty Start Date End Date Jermaine Church DO [address] [place] [phone] PCP - General 11/04/15 Combination Man Relationship Specialty Start Date End Date Jermaine Church DO [address] [place] [phone] PCP - General 11/04/15 Team Status: Inactive Member Role Status Dates Dr. Jermaine Church DO Primary Care Provider Active Dr. Leonel Carlos MD Attending Provider Active Team Status: Inactive Member Role Status Dates Dr. Jermaine Church DO Primary Care Provider Active Dr. Yair Pace MD Emergency Provider Active Combination Man Relationship Specialty Start Date End Date Jermaine Church DO [address] [place] [phone] PCP - General 11/04/15 Combination Man Relationship Specialty Start Date End Date Jermaine Church DO [address] [place] [phone] PCP - General 11/04/15 Combination Man Relationship Specialty Start Date End Date Jermaine Church DO [address] [place] [address] PCP - General Family Medicine 08/03/24 Combination Man Relationship Specialty Start Date End Date Jermaine Church DO [address] [place] [address] PCP - General Family Medicine 08/03/24 Combination Man Relationship Specialty Start Date End Date Jermaine Church DO [address] [place] [address] PCP - General Family Medicine 10/28/17 Team Status: Inactive Member Role Status Dates Dr. Jermaine Church DO Primary Care Provider Active Start: September 03, 2024 End: September 03, 2024 Dr. Lizzie Rankin DO Emergency Provider Active Start: September 03, 2024 End: September 03, 2024 Team Status: Inactive Member Role Status Dates Dr. Jermaine Church DO Primary Care Provider Active Start: September 05, 2024 End: September 05, 2024 Dr. Ben Kohler DO Emergency Provider Active Start: September 05, 2024 End: September 05, 2024 Combination Man Relationship Specialty Start Date End Date Jermaine Church DO [address] [place] [address] PCP - General Family Medicine 10/28/17 Team Status: Active Member Role/Relationship Status Dates Dr. Jermaine Church DO Primary Care Provider Active Team Status: Inactive Member Role/Relationship Status Dates Dr. Jermaine Church DO Primary Care Provider Active Start: September 03, 2024 End: September 03, 2024 Dr. Lizzie Rankin DO Attending Provider Active Start: September 03, 2024 End: September 03, 2024 Dr. Lizzie Rankin DO Emergency Provider Active Start: September 03, 2024 End: September 03, 2024 Team Status: Inactive Member Role/Relationship Status Dates Dr. Jermaine Church DO Primary Care Provider Active Start: September 05, 2024 End: September 05, 2024 Dr. Ben Kohler DO Attending Provider Active Start: September 05, 2024 End: September 05, 2024 Dr. Ben Kohler DO Emergency Provider Active Start: September 05, 2024 End: September 05, 2024 Team Status: Inactive Member Role/Relationship Status Dates Dr. Jermaine Church DO Primary Care Provider Active Start: November 15, 2024 End: November 16, 2024 Ed Physician Provider Emergency Provider Active Start: November 15, 2024 End: November 16, 2024 Combination Man Relationship Specialty Start Date End Date Jermaine Church DO [address] [place] [phone] PCP - General 11/04/15 Combination Man Relationship Specialty Start Date End Date Jermaine Church DO [address] [place] [phone] PCP - General 11/04/15 Combination Man Relationship Specialty Start Date End Date J[place]aine Church [place] [address] PCP - General 11/04/15 Scheduled Active and Recently Administ ered Medications [...] 15 mg, IntraVENous, ONCE, 1 dose, On Sat09/25/21 at 0422, Do not administer for more than 5 days. 0545 (Given - Provid er: Varghese Boyd RN) ondansetron (ZOFRAN) injection 4 mg (COMPLETED) 4 mg, IntraVENous, ONCE, 1 dose, On Sat09/25/21 at 0542 0545 (Given - Provid er: Varghese Boyd RN) PRN Medication Order 09/23/2021 09/24/2021 09/25/2021 iopamidol (ISOVUE-370) 76 % injection 75 mL (COMPLETED) 75 mL, IntraVENous, IMG ONCE PRN, 1 dose, Starting on Sat09/25/21 at 0646, Until Sat09/25/21 at 0654, Other 0654 (Given - Provid er: Sae More) Scheduled Medication Order 09/30/2021 10/01/2021 10/02/2021 [...] Lal RN)1741 (See Alternative - Provider: Viki Lal RN)2355 (See Alternative - Provider: Emily Zambrano RN) 0539 (See Alternative - Provider: Emily Zambrano RN)1135 (See Alternative - Provider: Elizabeth Barriga RN)1743 (See Alternative - Provider: Elizabeth Barriga RN) 0103 (Given - Provider: Neetu Fuentes, YESSENIA)0652 [...] mg, oral, Daily RT, First dose on 08/08/24 at 0915 0914 (Given - Provider: Nancy Salinas RN) ampicillin-sulbactam (Unasyn) 3 g in sodium chloride 0.9% IV 100 mL 3 g, intravenous, at 200 mL/hr, Administer over 30 Minutes, Every 6 hours, First dose on Sat08/05/24 at 1745, Phase II/On Unit, Mini-Bag Plus/ADD-[place] bag, Suspected Indication (Select all that apply): Surgical Prophylaxis, Indications: Surgical Prophylaxis 0117 (New Bag - Provider: Emily Zambrano RN - Comment: due)0231 (Stopped - Provider: Emily Zambrano RN)0606 (New Bag - Provider: Emily Zambrano RN)0636 (Stopped - Provider: Emily Zambrano RN)1149 (New Bag - Provider: Viki Lal RN)1245 (Stopped - Provider: Viki Lal, RN)1741 (New Bag - Provider: Viki Lal, YESSENIA)1818 (Stopped - Provider: Viki Lal RN)2355 (New Bag - Provider: Emily Zambrano RN) 0035 (Stopped - Provider: Emily Zambrano, YESSENIA)0539 (New Bag - Provider: Emily Zambrano RN)0632 (Stopped - Provider: Emily Zambrano RN)1135 (New Bag - Provider: Elizabeth Barriga RN)1215 (Stopped - Provider: Elizabeth Barriga RN)1743 (New Bag - Provider: Elizabeth Barriga RN)1818 (Stopped - Provider: Elizabeth Barriga RN) 0106 (New Bag - Provider: Neetu Fuentes RN)0223 (Stopped - Provider: Neetu Fuentes RN)0609 (New Bag - Provider: Neetu Fuentes RN)0656 (Stopped - Provider: Neetu Fuentes RN)1145 (Due)1745 (Due)2345 (Due) chlorhexidine (Peridex) 0.12 % solution 15 mL 15 mL, Swish & Spit, 2 times daily, First dose on Sat08/05/24 at 2100, Phase II/On Unit, Do NOT swallow; Avoid eating for 2 to 3 hours after treatment. 0852 (Given - Provider: Viki Lal RN)2105 (Given - Provider: Emily Zambrano RN) 0912 (Given - Provider: Elizabeth Barriga RN)2040 (Given - Provider: Neetu Fuentes RN) 0900 (Due)2100 (Due) enoxaparin (Lovenox) syringe 40 mg (CANCELED) 40 mg, subcutaneous, Every 24 hours, First dose on Sat08/05/24 at 2100, Phase II/On Unit 2104 (Given - Provider: Emily Zambrano RN) ibuprofen 100 mg/5 mL suspension 600 mg(Linked Group 2) 600 mg, oral, 3 times daily, First dose on Sat08/05/24 at 2100, Phase II/On Unit, Use liquid if patient unable to swallow tablet. 0852 (See Alternative - Provider: Viki Lal RN)1530 (See Alternative - Provider: Viki Lal RN)2104 (See Alternative - Provider: Emily Zambrano RN) 09 (See Alternative - Provider: Elizabeth Barriga RN)145 (See Alternative - Provider: Elizabeth Barriga RN)2055 (See Alternative - Provider: Neetu Fuentes, YESSENIA) 0914 (See Alternative - Provider: Nancy Salinas, YESSENIA)1500 (Due)2099 (Due) ibuprofen tablet 600 mg(Linked Group 2) [...] Provider: Viki Lal RN - Reason: Patient/family refused)2104 (Not Given - Provider: Emily Zambrano RN - Reason: Patient/family refused) 09 (Not Given - Provider: Elizabeth Barriga RN - Reason: Patient/family refused - Comment: Patient refused due to being told by his primary doctor that he can not take it.)1455 (Not Given - Provider: Elizabeth Barriga RN - Reason: Patient/family refused - Comment: Patient stated his primary doctor told him he can not take ibuprofen)2055 (Not Given - Provider: Neetu Fuentes RN - Reason: Patient/family refused) 0914 (Given - Provider: Nancy Salinas RN)1500 (Due)2099 (Due) polyethylene glycol (Glycolax, Miralax) packet 17 g 17 g, oral, Daily, First dose on Tara 08/06/24 at 1930 1935 (Given - Provider: Emily Zambrano, RN) 0912 (Given - Provider: Elizabeth Barriga, RN) 0914 (Given - Provider: Nancy Salinas [...] 3-5 minutes. 0554 (Given - Provider: Emily Zambrano RN) ondansetron (Zofran) tablet 4 mg(Linked Group 3) 4 mg, oral, Every 8 hours PRN, nausea/vomiting, first line, Starting on Sat08/05/24 at 1730, Phase II/On Unit, 1st Line. Use oral route first, if possible. If inadequate response within 60 minutes, proceed to next-line agent for same PRN reason or contact provider if no further options ordered. 0554 (See Alternative - Provider: Emily Zambrano RN) traMADol (Ultram) tablet 50 mg 50 mg, [...] via IV Push, administer over 3-5 minutes. Scheduled Medication Order 11/14/2024 11/15/2024 11/16/2024 predniSONE (Deltasone) tablet 20 mg (COMPLETED) 20 mg, Oral, Once, On 11/16/24 at 2024, For 1 dose 2027 (Given - Provid er: Colleen Pepe RN) Scheduled Medication Order 01/15/2025 01/16/2025 01/17/2025 Lidocaine 4 % patch 1 patch 1 patch, TransDERmal, Administer over 12 Hours, Once, On 01/17/25 at 0220, For 1 dose, Apply patch to middle of neck. Patch may remain in place for up to 12 hours in any 24 hour period. 0253 (Medication Art lied - Provider: Brina Dukes RN - Comment: backof neck)0256 (Due: Medication Removed - Provider: Automatic Discharge Provider - Comment: Time automatically adjusted from order being discontinued) Ordered Prescriptions (unrec ognized section and content) [...] BE BASED ON THE PRIMARY CLINICAL RECORDS. [facility]. provides no warranty or guarantee of the accuracy or completeness of information in this document.
[2025-01-20 03:54] LABS: Hematocrit 44.3 % (40-54); Hemoglobin 15.2 g/dL (13.0-16.5); Immature Granulocytes Count 0.030 X10^3/uL (0.0-0.0); Mean Corp Hgb Conc 34.3 g/dL (32-36); Mean Corpuscular Volume 94.5 fL (80-94); Mean Platelet Vol. 9.5 fl (6.2-12.0); NRBC Flagged by Analyzer 0 % (0-5); POSITIVE DIFFERENTIAL YES; Platelet Count 146 K/mm3 (150-450); RBC Distribution Width CV 12.9 % (11.6-14.6); RBC Distribution Width SD 44.2 fl (35.1-43.9); Red Blood Count 4.69 M/mm3 (4.6-6.2); White Blood Count 6.3 K/mm3 (4.4-11.0)
[2025-01-20 04:11] LABS: Mucous, Urine 0 SEEN /hpf (<or=2+)
[2025-01-20 04:13] LABS: Color, Urine Yellow (Yellow); Glucose, Dipstick Normal (Normal); Ketone-Dipstick Negative (Negative); Leukocyte Esterase-Dipstick Negative /ul (Negative); Nitrite-Dipstick Negative (Negative); Occult Blood-Urine 150 /ul (Negative); Protein-Dipstick 30 mg/dl (Negative); Specific Gravity, Urine 1.015 (1.002-1.030); Urine Bilirubin Dipstick Negative (Negative)
--- NOTE | 2025-01-20 04:14 | EDS_ITS ---
HPI History of Present Illness Chief Complaint: Abd Pain Informant: patient Narrative Narrative: Patient is a 79-year-old male with past medical history of hypertension GERD and arthritis. He also has a past medical history of previous DVT and is currently on Xarelto. He states that he felt constipated over the last few days and therefore did a home enema treatment which seemed to help stimulate a bowel movement. He reports that he went to bed normally but then awoke roughly 30 minutes to an hour prior to arrival with sudden onset of lower mid abdominal discomfort. He states there was no associated nausea or vomiting. He states he has been urinating well without painful urination or difficulty urinating. He states he is unsure if his abdominal pain is related to constipation and he needs cleaned out more or if he has a developing infection and secondary to this presents for evaluation [facility] Medical History Arthritis History of prostate cancer DVT (deep venous thrombosis) GERD (gastroesophageal reflux disease) Non-smoker Hx of blood clots Hx of radiation therapy History of chemotherapy Home Medications ?Medication ?Instructions ?Recorded ?Last Taken ?Type omeprazole 10 mg capsule,delayed 10 mg PO DAILY Check with primary 07/11/22 09/03/22 History release doctor rivaroxaban 20 mg tablet (Xarelto) 20 mg PO DAILY bloo d clots 09/04/22 09/01/22 18:00 History amlodipine 2.5 mg tablet 2.5 mg PO DAILY 09/05/24 Unk nown History doxazosin 2 mg tablet 2 mg PO DAILY 09/05/24 Unkno wn History acetaminophen 325 mg tablet 650 mg PO Q4H PRN fever or pain 01/20/25 Unknown History (Aminofen) calcium 600 mg capsule mg PO 01/20/25 Unknown Histo ry cholecalciferol (vitamin D3) 125 5,000 unit PO QDAY Unknown History mcg (5,000 unit) tablet (Vitamin D3) Allergy/AdvReac Type Severity Reaction Status Date / Time acetaminophen (From Percocet) Allergy Other Verified 01/20/25 03:18 hydrocodone (From Vicodin) Allergy Other Verified 01/20/25 03:18 morphine Allergy Other Verified 01/20/25 03:18 oxycodone (From Percocet) Allergy Other Verified 01/20/25 03:18 Surgical History History of total left hip arthroplasty Hx of prostatectomy Social History household members: spouse Smoking Status: Never smoker alcohol intake: never substance use type: does not use ROS ROS ED Constitutional Constitutional ED: Denies chills or fever(s) ENT ENT ED: Denies sore throat Cardiovascular Cardiovascular: Denies chest pain Respiratory/Chest Respiratory/Chest: Denies cough or dyspnea Gastrointestinal Gastrointestinal: Reports abdominal pain and constipation; Denies diarrhea, nausea or vomiting Genitourinary Genitourinary ED: Denies dysuria Musculoskeletal Musculoskeletal: Denies back pain Integumentary Denies rash Neurologic Neurologic: Denies headache(s) Hematologic/Lymphatic Hematologic/Lymphatic: Reports easy bleeding and easy bruising EXAM Physical Exam Const Vital Signs: 01/20/25 03:18 01/20/25 05:04 Temperature 97.8 F 97.8 F Temperature Source Oral Pulse Rate 93 68 Respiratory Rate 18 18 Blood Pressure 170/71 H 187/64 H Blood Pressure Mean 104 105 Pulse Ox 97 96 Oxygen Delivery Method Room Air Positive well nourished and well developed General Appearance ED: well developed; Negative for pallor HEENT HEENT Narrative: Normocephalic atraumatic Eyes PERRL and EOMs intact bilaterally General Eye ED: Negative for scleral icterus Neck supple Resp normal respiratory effort and clear to auscultation bilaterally Resp Narrative: Breath sounds are diminished throughout but overall clear to auscultation without signs of respiratory distress Cardio regular rate and regular rhythm Rate: other Other Details: Radial and carotid pulses are equal and symmetric GI non-distended and no masses GI Narrative: Abdomen is soft and nondistended with hypoactive bowel sounds. There is pain with palpation in the midline lower abdomen just below the umbilicus without voluntary guarding or rigidity. No pulsatile mass. No fluid wave. No organomegaly noted Auscultation: hypoactive bowel sounds Palpation: soft Extremity normal to inspection Neuro oriented x3, CN's II-XII intact bilaterally and no sensory deficits noted Sensorium / Orientation: alert Motor Exam: strength 5/5 throughout Psych mental status grossly normal Skin no rashes or lesions noted and no wounds General Skin Exam: Negative for jaundice or pallor MDM MDM MDM Narrative Medical decision making narrative: Patient arrived to the ER hypertensive but has a past medical history of this and otherwise with stable vitals. With his report of lower abdominal pain and constipation there is concern for potential ileus versus small bowel obstruction versus diverticulitis. Patient also could you simply be constipated or have UTI or urinary retention. Urine sample revealed no sign of infection he reports he is urinating without difficulty and there is no sign of organomegaly on physical exam going against urinary retention. Lab work revealed no clinically significant findings going against acute pancreatitis or biliary colic or acute cholecystitis. CT scan showed changes consistent with significant constipation. Therefore he was given an enema in the ER which did help stimulate a bowel movement and after this he reported feeling better. He will be given magnesium citrate to completely flush the intestines and then advised to take MiraLAX along with his Metamucil to prevent reoccurrence of constipation. At this time however he does not have [place] or acute pancreatitis UTI or urosepsis or signs of intestinal obstruction or complicated diverticulitis so therefore there is no need for further intervention or workup and he is otherwise safe for discharge. History & Record Review Discussion w/independent historian: Patient Lab Data Attestation: I reviewed the patient's lab results. Labs: Laboratory Results - last 24 hr 01/20/25 01/20/25 03:31 04:06 WBC 6.3 RBC 4.69 Hgb 15.2 Hct 44.3 MCV 94.5 H MCH 32.4 H MCHC 34.3 RDW Std Deviation 44.2 H RDW Coeff of Angelica 12.9 Plt Count 146 L MPV 9.5 Immature Gran % (Auto) 0.500 Neut % (Auto) 92.0 H Lymph % (Auto) 5.2 L [place] % (Auto) 2.1 Eos % (Auto) 0.0 Baso % (Auto) 0.2 Absolute Neuts (auto) 5.8 Absolute Lymphs (auto) 0.33 L Nucleated RBC % 0 Sodium 141 Potassium 4.0 Chloride 109 H Carbon Dioxide 19.7 L Anion Gap 13 BUN 22 H Creatinine 1.11 Estim Creat Clear Calc 62.13 Est GFR (MDRD) Non-Af 68 BUN/Creatinine Ratio 20.1 H Glucose 162 H Calcium 10.0 Total Bilirubin 0.32 Direct Bilirubin 0.17 AST 21 ALT 16 Alkaline Phosphatase 65 Total Protein 7.0 Albumin 4.3 Globulin 2.7 Lipase 19 Urine Color Yellow Urine Clarity Clear Urine pH 5.0 Ur Specific [place] 1.015 Urine Protein 30 H Urine Glucose (UA) Normal Urine Ketones Negative Urine Occult Blood 150 H Urine Nitrite Negative Urine Bilirubin Negative Urine Urobilinogen Normal Ur Leukocyte Esterase Negative Urine RBC 0-5 SEEN Urine WBC 0-5 SEEN Ur Squamous Epith Cells 0-5 SEEN Urine Bacteria RARE Hyaline Casts 0-5 SEEN Urine Mucus 0 SEEN Radiography Diagnostic Testing: Clinical Impression(s) from Imaging Studies Abdomen/Pelvis CT 01/20/25 03:41 IMPRESSION: Stable study findings as detailed. No newly developed acute pelvi-abdominal abnormalities, collections or free air. 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 Instructions: ED Constipation (Adult) Prescriptions: No Action omeprazole 10 mg capsule,delayed release(DR/EC) 10 mg PO DAILY Xarelto 20 mg tablet 20 mg PO DAILY Patient Comments: TAKE 1 TABLET BY MOUTH EVERY DAY WITH DINNER amlodipine 2.5 mg tablet 2.5 mg PO DAILY doxazosin 2 mg tablet 2 mg PO DAILY cholecalciferol (vitamin D3) [Vitamin D3] 125 mcg (5,000 unit) tablet 5,000 unit PO QDAY acetaminophen [Aminofen] 325 mg tablet 650 mg PO Q4H PRN (Reason: fever or pain) calcium 600 mg capsule PO Primary Care Provider: Jermaine Carpio Referrals: Jermaine Carpio, [Primary Care Provider] - Activity Restrictions/Additional Instructions: Your CT scan did not show sign of bowel blockage or intestinal infection. It did show changes consistent with significant constipation. When you return home please drink half the bottle of magnesium citrate. If there is no bowel movement after 4 hours then finish the bottle. Starting please take 1 capful of MiraLAX daily along with your Metamucil in order to prevent recurrence of constipation and return to the ER should you have any further concerns Print Language: Somali Disposition Disposition: Home, Self Care Discharge Date/Time: 01/20/25 05:25
[2025-01-20 04:20] LABS: AST(SGOT) 21 U/L (<=37); Alanine Aminotransfer ALT/SGPT 16 U/L (<=46); Albumin, Serum 4.3 g/dL (3.4-4.8); Alkaline Phosphatase 65 U/L (40-129); Anion Gap 13 (5-15); BUN 22 mg/dL (4-19); BUN/Creat Ratio 20.1 RATIO (10-20); Bilirubin, Direct 0.17 mg/dL (0.00-0.30); Calcium,Total 10.0 mg/dL (7.6-11.0); Carbon Dioxide 19.7 mmol/L (21.0-32.0); Chloride 109 mmol/L (98-108); Estimated Creatinine Clearance 62.13 ml/min (50-250); Globulin 2.7 g/dL (2.2-4.2); Glucose 162 mg/dL (70-99); Lipase 19 U/L (13-75); Potassium 4.0 mmol/L (3.3-5.1)
[2025-01-20 04:47] LABS: Red Blood Cells-Urine 0-5 SEEN /hpf (0-5); Squamous Epithelial Cells - UA 0-5 SEEN /hpf (0-5)
[2025-01-20] MEDS: Magnesium Citrate 300 ML PO (05:00)
[2025-01-20 05:04] VITALS: BP 187/64; PULSE 68; RESP 18; TEMP 36.6; O2SAT 96
== END 2025-01-20 05:25 | disposition home or self-care (01) ==
PROVIDERS: Emergency Provider Emergency Medicine; PCP Family Medicine; Visit Provider Emergency Medicine
DX: K59.00 Constipation, unspecified (principal); K21.9 Gastro-esophageal reflux disease without esophagitis; I10 Essential (primary) hypertension; Z86.718 Personal history of other venous thrombosis and embolism; Z79.01 Long term (current) use of anticoagulants
CPT/HCPCS: 74177; 80048; 80076; 81001; 83690; 85025; 96361; 96374; 99283; Q9967; A4216

== ENCOUNTER → 2025-02-18 | Outpatient (CLI) | payer MEDICARE, OTHER, SELFPAY ==
--- NOTE | 2025-02-18 13:50 | RAD_ITS ---
PROCEDURE: CERV SPINE 2 OR 3 VIEWS 02/18/2025 REASON FOR EXAM: CERVICAL SPONDYLOSIS TECHNIQUE: Procedure Code: RADSPCL Modality: DX Procedure: CERV SPINE 2 OR 3 VIEWS COMPARISON: Cervical spine CT, 09/05/2024 FINDINGS: There are no compression fractures or subluxations. There is degenerative disc disease C5-6 and C6-7 with narrowing of the intervertebral disc spaces and marginal osteophytes. There is multilevel facet arthropathy. There is degenerative grade 1 anterolisthesis C5 on C6. RAD/Cerv Spine 2 or 3 Views IMPRESSION: Degenerative disc disease, C5-6 and C6-7. Degenerative anterolisthesis, C5 on C6. Reading Location: [place] [id number]
--- NOTE | 2025-02-18 13:50 | RAD_ITS ---
PROCEDURE: CERV SPINE 2 OR 3 VIEWS 02/18/2025 REASON FOR EXAM: CERVICAL SPONDYLOSIS TECHNIQUE: Procedure Code: RADSPCL Modality: DX Procedure: CERV SPINE 2 OR 3 VIEWS COMPARISON: Cervical spine CT, 09/05/2024 FINDINGS: There are no compression fractures or subluxations. There is degenerative disc disease C5-6 and C6-7 with narrowing of the intervertebral disc spaces and marginal osteophytes. There is multilevel facet arthropathy. There is degenerative grade 1 anterolisthesis C5 on C6. RAD/Cerv Spine 2 or 3 Views IMPRESSION: Degenerative disc disease, C5-6 and C6-7. Degenerative anterolisthesis, C5 on C6. Reading Location: [place] [id number]
== END | disposition home or self-care (01) ==
LOC: RAD 13:41
PROVIDERS: PCP Family Medicine; Referring Provider Anesthesiology Pain Medicine; Visit Provider Anesthesiology Pain Medicine
DX: M47.812 Spondylosis without myelopathy or radiculopathy, cervical region (principal)
CPT/HCPCS: 72040